=== PATIENT | male | born 1945 | race African-American/Black ===

== ENCOUNTER 2016-10-16 16:51 | Emergency (ER) | payer MEDICARE, MEDICAID ==
[~2016-10-16] VITALS: Ht 175.3 cm; Wt 92.5 kg
[~2016-10-16 16:51] MED LIST: ADVAIR 250/501 PUFFS INH; AMLODIPINE BESYL5 MG ORAL; AMOXICILLIN500 MG PO; ASPIR 8181 MG ORAL; DOXYCYCLINE HY100 M2 ORAL; EXFORGE HCT 5-1 EAC1 ORAL; FLOMAX0.4 MG PO; GLIPIZIDE5 MG ORAL; IBUPROFEN600 MG ORAL; IBUPROFEN600 MG PO; LOSARTAN POTAS100 MG PO; MEDROL DOSEPAK4 MG ORAL; METHOCARBAMOL500 MG ORAL; NICODERM 21MG/241 EA TDERMAL; NORCO 5-325 TA1 EACH ORAL; NORCO1 EA ORAL; PREDNISONE20 MG ORAL; SIMVASTATIN40 MG PO; TYLENOL #31 TAB PO; UNK BP MED PO; VALIUM5 MG PO; VENTOLIN HFA18 GM INH; VITAMIN D1000 UNI1 ORAL; ZITHROMAX250 MG ORAL
[2016-10-16 17:17] VITALS: BP 133/84
[2016-10-16] MEDS ORDERED: Ketorolac 60mg Inj IM ONE (18:00)
[2016-10-16] MEDS ORDERED: Albuterol ud Inhalation HHN ONE ×2 (18:00→20:15)
[2016-10-16] MEDS ORDERED: Acetaminophen 500mg (ES) tab ORAL ONE (18:00)
[2016-10-16 19:13] LABS: BASOPHILS % (AUTO) 1.4 % (0.0-2.0); EOSINOPHILS % (AUTO) 1.6 % (0.0-3.0); LYMPHOCYTES % (AUTO) 36.3 % (20.0-45.0); MEAN CORPUSCULAR HEMOGLOBIN 31.4 PG (27.0-31.0); MEAN CORPUSCULAR HGB CONC 32.2 G/DL (32.0-36.0); MEAN CORPUSCULAR VOLUME 97 FL (80-99); MEAN PLATELET VOLUME 7.7 FL (6.5-10.1); MONOCYTES % (AUTO) 5.9 % (1.0-10.0); NEUTROPHILS % (AUTO) 54.8 % (45.0-75.0); PLATELET COUNT 232 K/UL (150-450); RED BLOOD COUNT 5.07 M/UL (4.70-6.10); RED CELL DISTRIBUTION WIDTH 12.3 % (11.6-14.8); WHITE BLOOD COUNT 5.8 K/UL (4.8-10.8)
[2016-10-16 19:30] LABS: ALANINE AMINOTRANSFERASE 21 U/L (3-41); ALBUMIN/GLOBULIN RATIO 1.6 (1.0-2.7); ANION GAP 11 (5-15); ASPARTATE AMINO TRANSFERASE 19 U/L (5-40); CALCIUM 9.7 mg/dL (8.6-10.2); CARBON DIOXIDE 29 mEQ/L (20-30); CHLORIDE 101 mEQ/L (98-107); CREATININE 1.3 mg/dL (0.7-1.2); GLOMERULAR FILTRATION RATE > 60 mL/min (>60); HEMOLYSIS 6; POTASSIUM 4.3 mEQ/L (3.4-4.9); SODIUM 141 mEQ/L (135-145); TOTAL PROTEIN 7.5 g/dL (6.6-8.7); TROPONIN I < 0.30 ng/mL (<=0.30)
[2016-10-16 19:41] LABS: CKMB < 1.5 ng/mL (< 6.7)
[2016-10-16] MEDS ORDERED: PredniSONE 20mg tab ORAL ONE (20:15)
--- NOTE | 2016-10-16 21:20 | Emergency Room Report ---
History of Present Illness General Chief Complaint: Chest Pain Present Illness HPI 71-year-old male presents emergency department complaining of left-sided chest pain in addition to dyspnea, wheezing and difficulty breathing times one day. Patient states that he has been admitted here in the past and also discharged here from the ER and evaluated for similar symptoms however he always has to return due to recurrent symptoms. denies productive cough. he denies nausea, vomiting, fevers, chills, abdominal pain or swelling of the lower extremities. Patient denies cardiac history. he states pain even during rest. Patient denies recent travel, or recent surgeries. Denies Palpitations, LOC, AMS, dizziness, Changes in Vision, Sensation, paresthesias, or a sudden severe headache. 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, MILD CVA Hx Seizures: No Hx Dizziness: Yes - WHEN CHANGING FROM SITTING TO STANDING Hx Headaches: Yes - OCCASIONALLY, MORE AFTER FACIAL SWELLING Review of Systems All Other Systems: negative except mentioned in HPI Physical Exam Vital Signs Date Time Temp Pulse Resp B/P Pulse Ox O2 Delivery O2 Flow Rate FiO2 10/16/16 16:59 97.9 67 17 137/81 98 Room Air 10/16/16 17:15 2.0 28 Sp02 EP Interpretation: reviewed, normal General Appearance: no apparent distress, alert, GCS 15, non-toxic Head: normocephalic, atraumatic Eyes: bilateral eye PERRL, bilateral eye normal inspection ENT: hearing grossly normal, normal pharynx, no angioedema, normal voice Neck: full range of motion, supple/symm/no masses Respiratory: chest non-tender, lungs clear, normal breath sounds, no rhonchi, no respiratory distress, no retraction, no accessory muscle use, speaking full sentences, wheezing - mild expiratory wheezes bilaterally, other - Significant TTP to palpation of the chest, no obvioius deformity Cardiovascular #1: regular rate, rhythm, no edema Cardiovascular #2: 2+ radial (R), 2+ radial (L), 2+ femoral (L), 2+ dorsalis pedis (L) Gastrointestinal: non tender, soft, no guarding, no rebound Rectal: deferred Musculoskeletal: back normal, gait/station normal, normal range of motion, no calf tenderness, tender - reproducible CP upon anterior palpation of the chest. Neurologic: alert, oriented x3, responsive, motor strength/tone normal, sensory intact, speech normal Psychiatric: judgement/insight normal, memory normal, mood/affect normal, no suicidal/homicidal ideation Skin: normal color, no rash, warm/dry, well hydrated Lymphatic: no adenopathy Medical Decision Making PA Attestation Dr. Marks is my supervising Physician whom patient management has been discussed with. Diagnostic Impression: Primary Impression: Costochondritis Additional Impression: Bronchitis ER Course Pt. presents to the ED c/o left sided CP and SOB x 1 day. Ddx considered but are not limited to VT, pneumonia, contusion, costochondritis , PE, ACS, Shoulder strain, Chest wall contusion. aortic dissection. Vital signs: are WNL, pt. is afebrile H&PE are most consistent with bronchitis, and costochondritis. due to significant reproducible pain on palpation, will r/o ACS. Patient is non- tachypneic non-tachycardic not suspicious of pulmonary embolism at this time. Patient not appear to be in distress. He is oxygenating well on room air. ORDERS: - EK PBM NSR no ST Changes, Pt. not given ASA in Ed. EKG was interpreted by Dr. Marks. -CK-MB: WNL -Troponins: WNL unremarkable - CXR: unremarkable - Per Dr. Gtz ED INTERVENTIONS: -60mg Prednisone PO -60mg Toradol IM -500mg Tylenol PO for pain - Albuterol Nebulized x 2 DISCHARGE: At this time pt. is stable for d/c to home. Will provide printed patient care instructions, and any necessary prescriptions. Care plan and follow up instructions have been discussed with the patient prior to discharge. EKG Diagnostic Results Rate: normal - 70 BPM Rhythm: NSR ST Segments: no acute changes ASA given to the pt in ED: No PA Scribe Text EKG was interpreted by Dr. Marks. Last Vital Signs Date Time Temp Pulse Resp B/P Pulse Ox O2 Delivery O2 Flow Rate FiO2 10/16/16 21:00 71 18 99 Nasal Cannula 2.0 28 10/16/16 17:17 97.5 133/84 Disposition: HOME, SELF-CARE Condition: Stable Scripts Ibuprofen* (MOTRIN*) 600 Mg Tablet 600 MG ORAL THREE TIMES A DAY, #30 TAB 0 Refills Prov: Malaika Bonilla 10/16/16 Albuterol Sulfate* (ALBUTEROL SULFATE MDI*) 8.5 Gm Hfa.aer.ad 2 PUFF INH Q3H, #1 INH 0 Refills Prov: Malaika Bonilla 10/16/16 Referrals: Jaylen Lara MD (PCP) Patient Instructions: Acute Bronchitis, Costochondritis, [id number], Nonspecific Chest Pain Additional Instructions: Take medications as directed. Follow up with PCP in 3 days * talk to your PCP about your recurrent ED visits for shortness of breath, difficulty breathing, and Chest Pain * Return sooner to ED if new symptoms occur, or current symptoms become worse. Malaika Bonilla Oct 16, 2016 21:20
[2016-10-16] MEDS ORDERED: ALBUTEROL SULF8.5 GM INH (21:37)
[2016-10-16] MEDS ORDERED: IBUPROFEN600 MG ORAL (21:37)
[2016-10-16 22:20] VITALS: BP 130/79
--- NOTE | 2016-10-17 13:47 | Diagnostic Imaging Report ---
Indications: Chest pain Technique: Portable AP chest Findings: Comparison: None Cardiac silhouette remains normal in size. Pulmonary vasculature remains within normal limits. Lungs and pleura remain clear. Bilateral breast implants again noted.. IMPRESSION: No evidence of acute disease, unchanged Stable chronic changes as described
--- NOTE | 2016-10-17 20:17 | Cardiology Report ---
APPROVED REPORT EKG Measurement Heart [id number] Normal sinus rhythm Minimal voltage criteria for LVH, may be normal variant Borderline ECG
== END 2016-10-16 22:20 | disposition home or self-care (01) ==
LOC: EMR 17:40
DX: M94.0 Chondrocostal junction syndrome [Tietze] (principal); J40 Bronchitis, not specified as acute or chronic; I10 Essential (primary) hypertension; J44.9 Chronic obstructive pulmonary disease, unspecified
CPT/HCPCS: 36415; 71010; 80053; 82550; 82553; 84484; 85025; 93005; 94640; 94664; 96372; 99283

== ENCOUNTER 2016-11-20 14:11 | Emergency (ER) | payer MEDICARE, MEDICAID ==
[~2016-11-20] VITALS: Ht 172.7 cm; Wt 91.6 kg
[~2016-11-20 14:11] MED LIST changes: +ALBUTEROL SULF8.5 GM INH
[2016-11-20] MEDS ORDERED: TdaP Vaccine 0.5ml Syr IM ONE (14:30)
--- NOTE | 2016-11-20 15:04 | Emergency Room Report ---
History of Present Illness General Chief Complaint: Laceration Present Illness HPI 71-year-old male presents emergency department complaining of laceration to the left index finger since 2 PM yesterday. Patient reports some mild bleeding continues. Patient denies taking blood thinning medications. Patient reports mild pain at the site of the laceration that he rates as 6/10 in severity and described as burning sensation. Patient states he accidentally cut his finger with oral scissors yesterday. Patient states he does not know when his last tetanus vaccination was.Denies numbness tingling or loss of sensation or gross motor movements of the extremities, incontinence of bowel or bladder. Denies CP , Palpitations, LOC, AMS, dizziness, Changes in Vision, Sensation, paresthesias , or a sudden severe headache. Allergies: Coded Allergies: No Known Allergies (Unverified , 10/27/12) Patient History Past Medical History: see triage record Past Surgical History: none Pertinent Family History: none Reviewed Nursing Documentation: PMH: Agreed, PSxH: Agreed Nursing Documentation-PMH Hx Cardiac Problems: Yes Hx Hypertension: Yes Hx Pacemaker: No Hx Asthma: No Hx COPD: Yes Hx Diabetes: Yes - BORDERLINE Hx Cancer: No Hx Gastrointestinal Problems: Yes Hx Dialysis: No Hx Neurological Problems: Yes Hx Cerebrovascular Accident: Yes - 20 YEARS AGO, MILD CVA Hx Seizures: No Hx Dizziness: Yes - WHEN CHANGING FROM SITTING TO STANDING Hx Headaches: Yes - OCCASIONALLY, MORE AFTER FACIAL SWELLING Review of Systems All Other Systems: negative except mentioned in HPI Physical Exam Vital Signs Date Time Temp Pulse Resp B/P Pulse Ox O2 Delivery O2 Flow Rate FiO2 11/20/16 14:16 97.7 78 20 121/70 98 Room Air Sp02 EP Interpretation: reviewed, normal General Appearance: no apparent distress, alert, GCS 15, non-toxic Head: normocephalic, atraumatic Eyes: bilateral eye PERRL, bilateral eye normal inspection ENT: hearing grossly normal, normal pharynx, no angioedema, normal voice Neck: full range of motion, supple/symm/no masses Respiratory: chest non-tender, lungs clear, normal breath sounds, speaking full sentences Cardiovascular #1: regular rate, rhythm, no edema Rectal: deferred Musculoskeletal: back normal, gait/station normal, normal range of motion, non- tender, no calf tenderness Neurologic: alert, oriented x3, responsive, motor strength/tone normal, sensory intact, speech normal Psychiatric: judgement/insight normal, memory normal, mood/affect normal, no suicidal/homicidal ideation Skin: normal color, no rash, warm/dry, well hydrated, other - 1cm superficial laceration to the lateral left 5th digit. no bleeding at this time. pt. has FROM of the extremity. , laceration Lymphatic: no adenopathy Medical Decision Making PA Attestation Dr. Lund is my supervising Physician whom patient management has been discussed with. Diagnostic Impression: Primary Impression: Laceration of finger with delay in treatment Qualified Codes: S61.219A - Laceration without foreign body of unspecified finger without damage to nail, initial encounter ER Course 71-year-old male presents emergency department complaining of laceration from floral scissors to the left index finger since 2 PM yesterday. Patient reports some mild bleeding continues. Patient denies taking blood thinning medications. Ddx considered but are not limited to laceration, tendon injury, cellulitis, amputation Vital signs: are WNL, pt. is afebrile H&PE are most consistent with: left 5th digit laceration approx 1 cm in length, with delayed evaluation. ORDERS: none required at this time, the diagnosis is clinical ED INTERVENTIONS: -Tetanus vaccine was administered as pt. vaccination status was unknown. - The wound was copiously irrigated with normal saline, and explored for foreign body for which no FB was found. - The wound was approximated and closed using steri-strip - Finger Splint applied to the left 5th digit by ED RN. Pt. remains neurovascularly intact. Discussed with patient: That we make every effort to approximate the laceration as best as we can so that scarring will be as cosmetically pleasing as possible with our limited cosmetic skill set in the Emergency dept. Regardless of our best efforts there will be scarring after laceration repair. The extent of scarring is unknown at this time. DISCHARGE: At this time pt. is stable for d/c to home. Will provide printed patient care instructions, and any necessary prescriptions. Care plan and follow up instructions have been discussed with the patient prior to discharge. Last Vital Signs Date Time Temp Pulse Resp B/P Pulse Ox O2 Delivery O2 Flow Rate FiO2 11/20/16 14:16 97.7 78 20 121/70 98 Room Air Disposition: HOME, SELF-CARE Condition: Stable Scripts Bacitracin Zinc/Polymyx B Sulf (HM DOUBLE ANTIBIOTIC OINTMENT) 28.4 Gm Oint...g. 1 APPLIC TP BID, #28.4 GM Prov: Malaika Bonilla 11/20/16 Acetaminophen* (TYLENOL EXTRA STRENGTH*) 500 Mg Tablet 500 MG ORAL Q6H, #30 TAB 0 Refills Prov: Malaika Bonilla 11/20/16 Cephalexin* (KEFLEX*) 500 Mg Capsule 500 MG ORAL EVERY 12 HOURS for 7 Days, #14 CAP 0 Refills Prov: Malaika Bonilla 11/20/16 Patient Instructions: Nonsutured Laceration Care Additional Instructions: Take medications as directed. Follow up with PCP in 3-5 days Return sooner to ED if new symptoms occur, or current symptoms become worse. - Please note that this Emergency Department Report was dictated using [employer] bottom assembler technology software, occasionally this can lead to erroneous entry secondary to interpretation by the dictation equipment. Malaika Bonilla Nov 20, 2016 15:04
[2016-11-20] MEDS ORDERED: CEPHALEXIN500 MG ORAL (15:25)
[2016-11-20] MEDS ORDERED: TYLENOL EXTRA500 MG ORAL (15:25)
[2016-11-20 15:30] VITALS: BP 120/60
[2016-11-20] MEDS ORDERED: HM DOUBLE ANT28.4 G1 TP (15:47)
[2016-11-20 16:00] VITALS: BP 120/60
== END 2016-11-20 16:00 | disposition home or self-care (01) ==
LOC: EMR 14:50
DX: S61.211A Laceration without foreign body of left index finger without damage to nail, initial encounter (principal); W27.2XXA Contact with scissors, initial encounter; Y92.9 Unspecified place or not applicable; Z23 Encounter for immunization; I10 Essential (primary) hypertension; J44.9 Chronic obstructive pulmonary disease, unspecified; E11.9 Type 2 diabetes mellitus without complications; Z86.73 Personal history of transient ischemic attack (TIA), and cerebral infarction without residual deficits
CPT/HCPCS: 29130; 90471; 90715

== ENCOUNTER 2017-12-18 16:10 | Inpatient (IN) | payer MEDICARE, MEDICAID ==
[~2017-12-18] VITALS: Ht 172.7 cm; Wt 94.8 kg
[~2017-12-18 16:10] MED LIST changes: +CEPHALEXIN500 MG ORAL; +HM DOUBLE ANT28.4 G1 TP; +TYLENOL EXTRA500 MG ORAL
[2017-12-18 16:24] VITALS: BP 140/82
--- NOTE | 2017-12-18 16:43 | Emergency Room Report ---
History of Present Illness General Chief Complaint: Chest Pain Source: Patient Present Illness HPI 72-year-old male with pmhx of HTN, p/w chest pain for 2 days. Patient states that yesterday he got up in the morning, felt very dizzy, then also started to have chest pain. Localized to substernal area, no radiation to back or other areas, sharp in nature, gradual in onset, multiple episodes. Denies SOB. Denies palpitations, diaphoresis, n/v. Patient states that he has had this chest pain in the past, multiple times Patient states that the dizziness has improved since yesterday, however does state that the room is spinning. Denies any leg or arm weakness or numbness. Denies fever, chills, cough, abd pain. Denies trauma. Unknown when his last stress test was. Denies any history of smoking Allergies: Coded Allergies: No Known Allergies (Unverified , 10/27/12) Patient History Past Medical History: see triage record Past Surgical History: none Pertinent Family History: none Reviewed Nursing Documentation: PMH: Agreed, PSxH: Agreed Nursing Documentation-PMH Past Medical History: No History, Except For Hx Cardiac Problems: Yes Hx Hypertension: Yes Hx Pacemaker: No Hx Asthma: No Hx COPD: Yes Hx Diabetes: Yes - BORDERLINE Hx Cancer: No Hx Gastrointestinal Problems: Yes Hx Dialysis: No Hx Neurological Problems: Yes Hx Cerebrovascular Accident: Yes - 20 YEARS AGO, MILD CVA Hx Seizures: No Hx Dizziness: Yes - WHEN CHANGING FROM SITTING TO STANDING Hx Headaches: Yes - OCCASIONALLY, MORE AFTER FACIAL SWELLING Review of Systems All Other Systems: negative except mentioned in HPI Physical Exam Vital Signs Date Time Temp Pulse Resp B/P (MAP) Pulse Ox O2 Delivery O2 Flow Rate FiO2 12/18/17 16:14 98.0 61 20 140/82 100 Room Air 98.1 Sp02 EP Interpretation: reviewed, normal General Appearance: alert, GCS 15, non-toxic, mild distress Head: normocephalic, atraumatic Eyes: bilateral eye normal inspection, bilateral eye PERRL, bilateral eye EOMI ENT: normal ENT inspection, normal pharynx, normal voice, moist mucus membranes Neck: normal inspection, full range of motion, supple Respiratory: normal inspection, lungs clear, normal breath sounds, no respiratory distress, no retraction, no wheezing, speaking full sentences, chest symmetrical Cardiovascular #1: normal inspection, regular rate, rhythm, no edema, normal capillary refill Cardiovascular #2: 2+ radial (R), 2+ radial (L) Gastrointestinal: normal inspection, non tender, soft, non-distended, no guarding Genitourinary: no CVA tenderness Musculoskeletal: normal inspection, back normal, normal range of motion, non- tender Neurologic: alert, oriented x3, responsive, radiator fitter III-XII nml as tested, motor strength/tone normal, sensory intact, speech normal, other - R sided nystagmus. finger to nose wnl Psychiatric: normal inspection, judgement/insight normal, memory normal Skin: normal inspection, normal color, no rash, warm/dry, well hydrated, normal turgor Medical Decision Making Diagnostic Impression: Primary Impression: Chest pain Additional Impression: Dizziness ER Course 72-year-old male with chest pain and dizziness DDX: ACS vs. CHF vs. pneumonia vs. gastritis/GERD vs. pneumothorax Dizziness: Dehydration, metabolic, vertigo, CVA Plan: IV access, obtain labs including troponin, EKG, CXR CT head ER course: Patient has remained on a monitor, HD stable still c/o CP, and dizziness Disposition: Patient requires admission for chest pain to tele D/W hospitalist Dr Lara Please note that this Emergency Department Report was dictated using [employer] motor and generator assembler technology software, occasionally this can lead to erroneous entry secondary to interpretation by the dictation equipment. EKG Diagnostic Results EP Interpretation: Yes Rate: Bradycardic Rhythm: Sinus bradycardia ST Segments: No acute changes ASA given to patient: Yes Rhythm Strip EP Interpretation: Yes Rate:55 Rhythm: NSR, no PVCs, no ectopy Chest X-ray* CXR: Ordered: Yes 1 view Indication: Chest pain EP interpretation: Yes Interpretation: No consolidation, no effusion, no PTX, no acute cardiopulmonary disease Impression: No acute disease Electronically signed by Cady Marin MD Laboratory Tests Test 12/18/17 16:55 White Blood Count 5.7 K/UL (4.8-10.8) Red Blood Count 4.77 M/UL (4.70-6.10) Hemoglobin 15.1 G/DL (14.2-18.0) Hematocrit 44.9 % (42.0-52.0) Mean Corpuscular Volume 94 FL (80-99) Mean Corpuscular Hemoglobin 31.7 PG (27.0-31.0) H Mean Corpuscular Hemoglobin Concent 33.7 G/DL (32.0-36.0) Red Cell Distribution Width 11.6 % (11.6-14.8) Platelet Count 204 K/UL (150-450) Mean Platelet Volume 8.6 FL (6.5-10.1) Neutrophils (%) (Auto) 56.3 % (45.0-75.0) Lymphocytes (%) (Auto) 33.5 % (20.0-45.0) Monocytes (%) (Auto) 6.9 % (1.0-10.0) Eosinophils (%) (Auto) 1.2 % (0.0-3.0) Basophils (%) (Auto) 2.0 % (0.0-2.0) Urine Color Pale yellow Urine Appearance Clear Urine pH 6 (4.5-8.0) Urine Specific Edson 1.015 (1.005-1.035) Urine Protein Negative (NEGATIVE) Urine Glucose (UA) Negative (NEGATIVE) Urine Ketones Negative (NEGATIVE) Urine Occult Blood Negative (NEGATIVE) Urine Nitrite Negative (NEGATIVE) Urine Bilirubin Negative (NEGATIVE) Urine Urobilinogen Normal MG/DL (0.0-1.0) Urine Leukocyte Esterase 1+ (NEGATIVE) H Urine RBC Pending Urine WBC Pending Urine Squamous Epithelial Cells Pending Urine Bacteria Pending Sodium Level Pending Potassium Level Pending Chloride Level Pending Carbon Dioxide Level Pending Blood Urea Nitrogen Pending Creatinine Pending Estimate Glomerular Filtration Rate Pending Glucose Level Pending Calcium Level Pending Total Bilirubin Pending Aspartate Amino Transferase (AST) Pending Alanine Aminotransferase (ALT) Pending Alkaline Phosphatase Pending Troponin I Pending Pro-B-Type Natriuretic Peptide Pending Total Protein Pending Albumin Pending Globulin Pending CT/MRI/US Diagnostic Results CT/MRI/US Diagnostic Results : Imaging Test Ordered: ct head Impression CT HEAD: No acute intracranial process. Involutional changes. Last Vital Signs Date Time Temp Pulse Resp B/P (MAP) Pulse Ox O2 Delivery O2 Flow Rate FiO2 12/18/17 16:14 98.0 61 20 140/82 100 Room Air 98.1 Disposition: ADMITTED INPATIENT Condition: Serious Cady Marin M.D. Dec 18, 2017 16:43
[2017-12-18 17:41] LABS: APPEARANCE,URINE CLEAR; BILIRUBIN, URINE NEGATIVE (NEGATIVE); COLOR,URINE PALE YELLOW; GLUCOSE, URINE (UA) NEGATIVE (NEGATIVE); KETONES,URINE NEGATIVE (NEGATIVE); LEUKOCYTE ESTERASE ,URINE 1+ (NEGATIVE); NITRITE,URINE NEGATIVE (NEGATIVE); PH,URINE 6 (4.5-8.0); PROTEIN,URINE NEGATIVE (NEGATIVE); UROBILINOGEN,URINE NORMAL MG/DL (0.0-1.0)
[2017-12-18 17:42] LABS: EOSINOPHILS % (AUTO) 1.2 % (0.0-3.0); HEMATOCRIT 44.9 % (42.0-52.0); HEMOGLOBIN 15.1 G/DL (14.2-18.0); LYMPHOCYTES % (AUTO) 33.5 % (20.0-45.0); MEAN CORPUSCULAR VOLUME 94 FL (80-99); MONOCYTES % (AUTO) 6.9 % (1.0-10.0); NEUTROPHILS % (AUTO) 56.3 % (45.0-75.0); PLATELET COUNT 204 K/UL (150-450); RED BLOOD COUNT 4.77 M/UL (4.70-6.10); RED CELL DISTRIBUTION WIDTH 11.6 % (11.6-14.8); WHITE BLOOD COUNT 5.7 K/UL (4.8-10.8)
[2017-12-18 17:57] LABS: ANION GAP 6 mmol/L (5-15); BLOOD UREA NITROGEN 16 mg/dL (7-18); CARBON DIOXIDE 28 MMOL/L (21-32); CHLORIDE 106 MMOL/L (98-107); CREATININE 1.3 MG/DL (0.55-1.30); SODIUM 140 MMOL/L (136-145)
[2017-12-18 18:08] LABS: ALANINE AMINOTRANSFERASE 30 U/L (12-78); ALBUMIN 4.2 G/DL (3.4-5.0); ALBUMIN/GLOBULIN RATIO 1.2 (1.0-2.7); ALKALINE PHOSPHATASE 68 U/L (46-116); ASPARTATE AMINO TRANSFERASE 21 U/L (15-37); BILIRUBIN,TOTAL 0.3 MG/DL (0.2-1.0)
[2017-12-18 19:07] VITALS: BP 152/90
[2017-12-18 20:30] VITALS: BP 137/95
[2017-12-18] MEDS ORDERED: Acetaminophen 500mg (ES) tab ORAL SCH (22:15)
[2017-12-18] MEDS: Heparin 5000 units/ml inj SUBQ SCH (22:52)
[2017-12-18] MEDS: Ketorolac 30mg Inj IV PRN (23:19)
[2017-12-19] VITALS (7 sets, daily range): BP systolic 117–143; BP diastolic 65–88
[2017-12-19 06:40] LABS: HEMATOCRIT 41.8 % (42.0-52.0); HEMOGLOBIN 14.6 G/DL (14.2-18.0); LYMPHOCYTES % (AUTO) 41.4 % (20.0-45.0); MEAN CORPUSCULAR VOLUME 94 FL (80-99); MONOCYTES % (AUTO) 9.5 % (1.0-10.0); PLATELET COUNT 188 K/UL (150-450); RED BLOOD COUNT 4.45 M/UL (4.70-6.10); RED CELL DISTRIBUTION WIDTH 11.9 % (11.6-14.8); WHITE BLOOD COUNT 4.7 K/UL (4.8-10.8)
[2017-12-19 07:02] LABS: ALANINE AMINOTRANSFERASE 31 U/L (12-78); ALBUMIN 3.6 G/DL (3.4-5.0); ALBUMIN/GLOBULIN RATIO 1.1 (1.0-2.7); ALKALINE PHOSPHATASE 63 U/L (46-116); ANION GAP 7 mmol/L (5-15); ASPARTATE AMINO TRANSFERASE 17 U/L (15-37); BILIRUBIN,TOTAL 0.3 MG/DL (0.2-1.0); BLOOD UREA NITROGEN 16 mg/dL (7-18); CALCIUM 8.8 MG/DL (8.5-10.1); CARBON DIOXIDE 27 MMOL/L (21-32); CHLORIDE 107 MMOL/L (98-107); CREATININE 1.3 MG/DL (0.55-1.30); PHOSPHORUS 3.9 MG/DL (2.5-4.9); POTASSIUM 4.1 MMOL/L (3.5-5.1); SODIUM 141 MMOL/L (136-145)
--- NOTE | 2017-12-19 08:30 | Diagnostic Imaging Report ---
Indications: Vertigo Technique: Spiral acquisitions obtained through the brain. Angled axial and coronal 5 x 5 mm slices were reconstructed. Total dose length product 1337.38 mGycm. CTDI vol(s) 70.38 mGy. Dose reduction achieved using automated exposure control Comparison: 07/11/2016 Findings: There is mild age-related prominence of the ventricles and extra-axial CSF spaces. Normal humphrey-white differentiation. No acute hemorrhage or edema. No mass effect or midline shift. Intact calvarium. Visualized orbits and sinuses are unremarkable. Impression: Mild age-related volume loss No acute intracranial bleed or mass effect This agrees with the preliminary interpretation provided overnight by [facility] teleradiology service. The CT scanner at [facility] is accredited by the [place] [employer] and the scans are performed using protocols designed to limit radiation exposure to as low as reasonably achievable to attain images of sufficient resolution adequate for diagnostic evaluation.
[2017-12-19] MEDS: Aspirin EC 81mg tab ORAL SCH (09:11)
[2017-12-19] MEDS: Heparin 5000 units/ml inj SUBQ SCH ×2 (09:11→21:00)
--- NOTE | 2017-12-19 10:38 | Diagnostic Imaging Report ---
Indication: Chest pain Technique: One view of the chest Comparison: 10/16/2016 Findings: No acute infiltrates, effusions, or congestion. Tortuous calcified aorta. Normal heart size. Upper mediastinum unremarkable. No significant interim change Impression: No acute process.
--- NOTE | 2017-12-19 12:52 | Consultation ---
History of Present Illness General Date patient seen: Dec 19, 2017 Chief Complaint: Chest Pain Present Illness HPI 72-year-old male with pmhx of HTN, COPD, presented to ER with CC of chest pain for 2 days. He is feeling very dizzy at times. The chest pain is sharp in nature, gradual in onset, multiple episodes. Patient states that the dizziness has improved since yesterday, however does state that the room is spinning. Denies any leg or arm weakness or numbness. His EKG and troponin were negative. He is admitted to [facility] for ACS and intractable dizziness. Allergies: Coded Allergies: No Known Allergies (Unverified , 10/27/12) Medication History Scheduled Acetaminophen* (Tylenol Extra Strength*), 500 MG ORAL Q6H Albuterol Sulfate (Ventolin Hfa), 1 PUFF INH EVERY 6 HOURS, (Reported) Amlodipine Besylate* (Amlodipine Besylate*), 5 MG ORAL DAILY, (Reported) Aspirin* (Aspir 81*), 81 MG ORAL DAILY, (Reported) Bacitracin Zinc/Polymyx B Sulf (Hm Double Antibiotic Ointment), 1 APPLIC TP BID Cephalexin* (Keflex*), 500 MG ORAL EVERY 12 HOURS Cholecalciferol (Vitamin D3)* (Vitamin D*), 2,000 UNITS ORAL DAILY, (Reported) Simvastatin (Zocor), 40 MG PO QHS, (Reported) Tamsulosin HCl (Flomax), 0.4 MG PO QHS, (Reported) Patient History Healthcare decision maker Resuscitation status Full Code Advanced Directive on File No Past Medical/Surgical History Past Medical/Surgical History: (1) COPD (chronic obstructive pulmonary disease) (2) Low back pain (3) HTN (hypertension) Review of Systems All Other Systems: negative except mentioned in HPI Physical Exam General Appearance: WD/WN Lines, tubes and drains: peripheral HEENT: normocephalic, atraumatic Neck: non-tender, normal alignment Respiratory/Chest: chest wall non-tender, normal breath sounds Cardiovascular/Chest: normal peripheral pulses, normal rate Abdomen: normal bowel sounds, non tender Genitourinary/Rectal: normal genital exam Extremities: normal range of motion Last 24 Hour Vital Signs Date Time Temp Pulse Resp B/P (MAP) Pulse Ox O2 Delivery O2 Flow Rate FiO2 12/19/17 09:11 60 124/84 12/19/17 06:41 57 3/16/18 04:00 98.2 54 20 119/77 99 Room Air 98.2 12/19/17 00:00 96.6 57 19 129/75 97 Room Air 96.6 12/18/17 23:54 61 12/18/17 21:00 97.9 68 17 137/95 98 Room Air 97.9 12/18/17 20:30 68 17 137/95 98 Room Air 12/18/17 19:07 97.9 70 21 152/90 98 Room Air 97.9 12/18/17 16:24 65 16 Room Air 12/18/17 16:24 98.1 65 16 140/82 100 Room Air 98.1 12/18/17 16:14 98.0 61 20 140/82 100 Room Air 98.1 Intake and Output 12/18/17 12/19/17 19:00 07:00 Output Total 400 ml Balance -400 ml Output Urine Total 400 ml # Voids 1 Laboratory Tests Test 12/18/17 16:55 12/19/17 06:05 White Blood Count 5.7 K/UL (4.8-10.8) 4.7 K/UL (4.8-10.8) L Red Blood Count 4.77 M/UL (4.70-6.10) 4.45 M/UL (4.70-6.10) L Hemoglobin 15.1 G/DL (14.2-18.0) 14.6 G/DL (14.2-18.0) Hematocrit 44.9 % (42.0-52.0) 41.8 % (42.0-52.0) L Mean Corpuscular Volume 94 FL (80-99) 94 FL (80-99) Mean Corpuscular Hemoglobin 31.7 PG (27.0-31.0) H 32.9 PG (27.0-31.0) H Mean Corpuscular Hemoglobin Concent 33.7 G/DL (32.0-36.0) 35.0 G/DL (32.0-36.0) Red Cell Distribution Width 11.6 % (11.6-14.8) 11.9 % (11.6-14.8) Platelet Count 204 K/UL (150-450) 188 K/UL (150-450) Mean Platelet Volume 8.6 FL (6.5-10.1) 9.1 FL (6.5-10.1) Neutrophils (%) (Auto) 56.3 % (45.0-75.0) 46.0 % (45.0-75.0) Lymphocytes (%) (Auto) 33.5 % (20.0-45.0) 41.4 % (20.0-45.0) Monocytes (%) (Auto) 6.9 % (1.0-10.0) 9.5 % (1.0-10.0) Eosinophils (%) (Auto) 1.2 % (0.0-3.0) 2.0 % (0.0-3.0) Basophils (%) (Auto) 2.0 % (0.0-2.0) 1.0 % (0.0-2.0) Urine Color Pale yellow Urine Appearance Clear Urine pH 6 (4.5-8.0) Urine Specific [place] 1.015 (1.005-1.035) Urine Protein Negative (NEGATIVE) Urine Glucose (UA) Negative (NEGATIVE) Urine Ketones Negative (NEGATIVE) Urine Occult Blood Negative (NEGATIVE) Urine Nitrite Negative (NEGATIVE) Urine Bilirubin Negative (NEGATIVE) Urine Urobilinogen Normal MG/DL (0.0-1.0) Urine Leukocyte Esterase 1+ (NEGATIVE) H Urine RBC 0-2 /HPF (0 - 0) H Urine WBC 0-2 /HPF (0 - 0) Urine Squamous Epithelial Cells None /LPF (NONE/OCC) Urine Bacteria None /HPF (NONE) Sodium Level 140 MMOL/L (136-145) 141 MMOL/L (136-145) Potassium Level 4.0 MMOL/L (3.5-5.1) 4.1 MMOL/L (3.5-5.1) Chloride Level 106 MMOL/L (98-107) 107 MMOL/L (98-107) Carbon Dioxide Level 28 MMOL/L (21-32) 27 MMOL/L (21-32) Anion Gap 6 mmol/L (5-15) 7 mmol/L (5-15) Blood Urea Nitrogen 16 mg/dL (7-18) 16 mg/dL (7-18) Creatinine 1.3 MG/DL (0.55-1.30) 1.3 MG/DL (0.55-1.30) Estimat Glomerular Filtration Rate > 60 mL/min (>60) > 60 mL/min (>60) Glucose Level 88 MG/DL (74-106) 131 MG/DL (74-106) H Calcium Level 9.0 MG/DL (8.5-10.1) 8.8 MG/DL (8.5-10.1) Total Bilirubin 0.3 MG/DL (0.2-1.0) 0.3 MG/DL (0.2-1.0) Aspartate Amino Transf (AST/SGOT) 21 U/L (15-37) 17 U/L (15-37) Alanine Aminotransferase (ALT/SGPT) 30 U/L (12-78) 31 U/L (12-78) Alkaline Phosphatase 68 U/L (46-116) 63 U/L (46-116) Troponin I 0.000 ng/mL (0.000-0.056) 0.000 ng/mL (0.000-0.056) Pro-B-Type Natriuretic Peptide 85 pg/mL (0-125) Total Protein 7.8 G/DL (6.4-8.2) 6.9 G/DL (6.4-8.2) Albumin 4.2 G/DL (3.4-5.0) 3.6 G/DL (3.4-5.0) Globulin 3.6 g/dL 3.3 g/dL Albumin/Globulin Ratio 1.2 (1.0-2.7) 1.1 (1.0-2.7) Phosphorus Level 3.9 MG/DL (2.5-4.9) Magnesium Level 1.7 MG/DL (1.8-2.4) L Height (Feet): 5 Height (Inches): 8.00 Weight (Pounds): 209 Medications Current Medications Medications (Trade) Dose Ordered Sig/Felipe Route PRN Reason Start Time Stop Time Status Last Admin Dose Admin Acetaminophen (Tylenol) 650 mg Q6H PRN ORAL Mild Pain/Temp > 100.5 12/18/17 21:00 01/17/18 20:59 Amlodipine Besylate (Norvasc) 5 mg DAILY ORAL 12/19/17 09:00 01/18/18 08:59 12/19/17 09:11 Aspirin (Ecotrin) 81 mg DAILY ORAL 12/19/17 09:00 01/18/18 08:59 12/19/17 09:11 Atorvastatin Calcium (Lipitor) 20 mg BEDTIME ORAL 12/19/17 21:00 01/18/18 20:59 Heparin Sodium (Porcine) (Heparin 5000 units/ml) 5,000 units EVERY 12 HOURS SUBQ 12/18/17 22:00 01/17/18 21:59 12/19/17 09:11 Ketorolac Tromethamine (Toradol 30mg) 15 mg Q6H PRN IV Severe Pain (7-10) 12/18/17 22:15 12/23/17 22:14 12/18/17 23:19 Magnesium Oxide (Mag-Ox 400mg) 400 mg BID ORAL 12/19/17 12:45 01/18/18 12:44 Tamsulosin HCl (Flomax) 0.4 mg QHS ORAL 12/19/17 21:00 01/18/18 20:59 Temazepam (Restoril) 15 mg HSPRN PRN ORAL Insomnia 12/18/17 22:15 12/25/17 22:14 Assessment/Plan Problem List: (1) ACS (acute coronary syndrome) ICD Codes: I24.9 - Acute ischemic heart disease, unspecified SNOMED: 554646564 (2) Dizziness (3) COPD (chronic obstructive pulmonary disease) ICD Codes: J44.9 - Chronic obstructive pulmonary disease, unspecified SNOMED: 52546946 (4) HTN (hypertension) ICD Codes: I10 - Essential (primary) hypertension SNOMED: 22204642 Assessment/Plan serial ekg, troponin echo neuro and cardio evaluation CT of head reviewed symptomatic treatment dvt prophylaxis. Susy Morse MD Dec 19, 2017 12:52
[2017-12-19] MEDS: Magnesium Oxide 400mg tab ORAL SCH ×2 (13:31→17:55)
[2017-12-19] MEDS: Ketorolac 30mg Inj IV PRN (13:33)
--- NOTE | 2017-12-19 15:27 | History & Physical ---
History and Physical History & Physicial Jaylen Lara MD Dec 19, 2017 15:27
--- NOTE | 2017-12-19 16:22 | Cardiology Progress Note ---
Assessment/Plan Assessment/Plan 1. Chest pain likely chest wall spasm. 2. Gtsx-qu-[id number] left anterior descending coronary artery disease in 2014 CT coronary angiography. 3. History of chronic obstructive pulmonary disease. 4. Muscle spasm in the chest wall. 5. Lumbar right radiculitis. 6. Left-sided body paresthesias ekg neg trop neg will have echo unless new ekg abn or echo abn will problaby not purusuit further ischemia evlauation at this time here [id number] Objective Last 24 Hour Vital Signs Date Time Temp Pulse Resp B/P (MAP) Pulse Ox O2 Delivery O2 Flow Rate FiO2 12/19/17 09:11 60 124/84 12/19/17 08:00 97.6 60 18 124/84 97 Room Air 97.6 12/19/17 06:41 57 12/19/17 04:00 98.2 54 20 119/77 99 Room Air 98.2 12/19/17 00:00 96.6 57 19 129/75 97 Room Air 96.6 12/18/17 23:54 61 12/18/17 21:00 97.9 68 17 137/95 98 Room Air 97.9 12/18/17 20:30 68 17 137/95 98 Room Air 12/18/17 19:07 97.9 70 21 152/90 98 Room Air 97.9 12/18/17 16:24 65 16 Room Air 12/18/17 16:24 98.1 65 16 140/82 100 Room Air 98.1 Intake and Output 12/18/17 12/19/17 19:00 07:00 Output Total 400 ml Balance -400 ml Output Urine Total 400 ml # Voids 1 Laboratory Tests Test 12/18/17 16:55 12/19/17 06:05 White Blood Count 5.7 K/UL (4.8-10.8) 4.7 K/UL (4.8-10.8) L Red Blood Count 4.77 M/UL (4.70-6.10) 4.45 M/UL (4.70-6.10) L Hemoglobin 15.1 G/DL (14.2-18.0) 14.6 G/DL (14.2-18.0) Hematocrit 44.9 % (42.0-52.0) 41.8 % (42.0-52.0) L Mean Corpuscular Volume 94 FL (80-99) 94 FL (80-99) Mean Corpuscular Hemoglobin 31.7 PG (27.0-31.0) H 32.9 PG (27.0-31.0) H Mean Corpuscular Hemoglobin Concent 33.7 G/DL (32.0-36.0) 35.0 G/DL (32.0-36.0) Red Cell Distribution Width 11.6 % (11.6-14.8) 11.9 % (11.6-14.8) Platelet Count 204 K/UL (150-450) 188 K/UL (150-450) Mean Platelet Volume 8.6 FL (6.5-10.1) 9.1 FL (6.5-10.1) Neutrophils (%) (Auto) 56.3 % (45.0-75.0) 46.0 % (45.0-75.0) Lymphocytes (%) (Auto) 33.5 % (20.0-45.0) 41.4 % (20.0-45.0) Monocytes (%) (Auto) 6.9 % (1.0-10.0) 9.5 % (1.0-10.0) Eosinophils (%) (Auto) 1.2 % (0.0-3.0) 2.0 % (0.0-3.0) Basophils (%) (Auto) 2.0 % (0.0-2.0) 1.0 % (0.0-2.0) Urine Color Pale yellow Urine Appearance Clear Urine pH 6 (4.5-8.0) Urine Specific [place] 1.015 (1.005-1.035) Urine Protein Negative (NEGATIVE) Urine Glucose (UA) Negative (NEGATIVE) Urine Ketones Negative (NEGATIVE) Urine Occult Blood Negative (NEGATIVE) Urine Nitrite Negative (NEGATIVE) Urine Bilirubin Negative (NEGATIVE) Urine Urobilinogen Normal MG/DL (0.0-1.0) Urine Leukocyte Esterase 1+ (NEGATIVE) H Urine RBC 0-2 /HPF (0 - 0) H Urine WBC 0-2 /HPF (0 - 0) Urine Squamous Epithelial Cells None /LPF (NONE/OCC) Urine Bacteria None /HPF (NONE) Sodium Level 140 MMOL/L (136-145) 141 MMOL/L (136-145) Potassium Level 4.0 MMOL/L (3.5-5.1) 4.1 MMOL/L (3.5-5.1) Chloride Level 106 MMOL/L (98-107) 107 MMOL/L (98-107) Carbon Dioxide Level 28 MMOL/L (21-32) 27 MMOL/L (21-32) Anion Gap 6 mmol/L (5-15) 7 mmol/L (5-15) Blood Urea Nitrogen 16 mg/dL (7-18) 16 mg/dL (7-18) Creatinine 1.3 MG/DL (0.55-1.30) 1.3 MG/DL (0.55-1.30) Estimat Glomerular Filtration Rate > 60 mL/min (>60) > 60 mL/min (>60) Glucose Level 88 MG/DL (74-106) 131 MG/DL (74-106) H Calcium Level 9.0 MG/DL (8.5-10.1) 8.8 MG/DL (8.5-10.1) Total Bilirubin 0.3 MG/DL (0.2-1.0) 0.3 MG/DL (0.2-1.0) Aspartate Amino Transf (AST/SGOT) 21 U/L (15-37) 17 U/L (15-37) Alanine Aminotransferase (ALT/SGPT) 30 U/L (12-78) 31 U/L (12-78) Alkaline Phosphatase 68 U/L (46-116) 63 U/L (46-116) Troponin I 0.000 ng/mL (0.000-0.056) 0.000 ng/mL (0.000-0.056) Pro-B-Type Natriuretic Peptide 85 pg/mL (0-125) Total Protein 7.8 G/DL (6.4-8.2) 6.9 G/DL (6.4-8.2) Albumin 4.2 G/DL (3.4-5.0) 3.6 G/DL (3.4-5.0) Globulin 3.6 g/dL 3.3 g/dL Albumin/Globulin Ratio 1.2 (1.0-2.7) 1.1 (1.0-2.7) Phosphorus Level 3.9 MG/DL (2.5-4.9) Magnesium Level 1.7 MG/DL (1.8-2.4) CRUZITO MIRAMONTES Dec 19, 2017 16:22
[2017-12-19] MEDS: Tamsulosin 0.4mg cap ORAL SCH (21:00)
[2017-12-19] MEDS: Atorvastatin 20mg tab ORAL SCH (21:00)
--- NOTE | 2017-12-19 21:30 | History and Physical Report ---
DATE OF ADMISSION: 12/18/2017 CHIEF COMPLAINT: Chest pain, weakness, dizziness, and headache. HISTORY OF PRESENT ILLNESS: This is a 72-year-old gentleman with past medical history significant for renal cell carcinoma, status post nephrectomy, history of hypertension, COPD, dyslipidemia, BPH, hepatitis C positive, and cataract, who was presented to the office. After he was seen in my office, he complained about chest pain. Shortly after initial evaluation, the patient was admitted to the hospital with atypical chest pain. Denies any shortness of breath, however, complained about pleuritic chest pain. No palpitations. No diaphoresis. No nausea or vomiting, however, he has poor appetite. Shortly after initial evaluation in the emergency, the patient was admitted to the hospital with atypical chest pain as well as pleuritic chest pain. PAST MEDICAL HISTORY/PAST SURGICAL HISTORY: As above. History of hypertension, dyslipidemia, COPD, chronic smoker, presently quit smoking, has prior history of pleuritic chest pain. Extensive workup including stress test, echocardiogram as well as CT was done by Dr. Farhan Dejesus in the past in [facility] as well as [facility] multiple times and with unknown results. The patient has history of appendectomy, renal cell carcinoma, status post nephrectomy, hepatitis C positive, cataract, and BPH. HOME MEDICATIONS: Significant for acetaminophen, albuterol, Norvasc, aspirin, vitamin D, simvastatin, and Flomax. ALLERGIES: No known drug allergies. SOCIAL HISTORY: The patient quit smoking. No substance abuse. Occasional drinks wine. FAMILY HISTORY: Noncontributory. REVIEW OF SYSTEMS: Mostly as above. Denies any dysuria, frequency, hematuria, or hematochezia. Complained about dizziness. Denies any hemoptysis or hematochezia. Denies any suicidal or homicidal ideation. Denies any loss of consciousness. Complained about weakness, generalized body aches, and chest discomfort. Denies any bowel or urinary incontinence. Denies any seizure activity. PHYSICAL EXAMINATION: GENERAL: The patient is awake, responsive, in no acute distress. VITAL SIGNS: On admission significant for temperature 98.0 degrees, pulse of 61, respirations 20, and blood pressure 140/82. HEAD AND NECK: Pupils are equal and reactive to light. Extraocular movements are intact. Neck was supple. No JVD. NECK: Supple. No JVD. LUNGS: Good air entry. No wheezing or rales. HEART: S1 and S2. Regular rhythm. No gallops. ABDOMEN: Soft, nondistended, and nontender. Positive bowel sounds. EXTREMITIES: No cyanosis, clubbing, or edema. NEUROLOGIC: Cranial nerves II through XII grossly intact. Motor strength is 5/5 in all the extremities. MUSCULOSKELETAL: The patient has very tender chest wall on deep palpation as well as hypersensitive and very tender to touch in the skin. LABORATORY AND DIAGNOSTIC DATA: Laboratory on admission from the ER, sodium 140, potassium 4.0, chloride 106, bicarbonate 28, BUN 16, creatinine 1.3, GFR is greater than 60, and glucose is 88. First and second troponin, all zeros. The patient's WBC of 5.7, hemoglobin 15, hematocrit 44, and platelet is 204,000. Urinalysis, +1 leukocytes, 0 to 2 rbc, and 0 to [address] of the head showed that mild age-related volume loss, no acute intracranial blood or mass effect. Chest x-ray, no acute process. ASSESSMENT: 1. Atypical chest pain, most likely pleuritic chest pain. 2. Hypertension. 3. COPD. 4. History of hepatitis C positive. 5. Renal cell carcinoma, status post nephrectomy. PLAN: Admit the patient to telemetry. We will follow up laboratory. The patient has been followed up with Dr. Morse, Pulmonary/Critical Care. Start the patient on Decadron and IV hydration. Duplex of lower extremity. We will monitor laboratory closely. Code status is Full Code. DVT prophylaxis, heparin subcutaneous. Jaylen Lara M.D. DR: TAHIRA JOB#: [id number] CC:
[2017-12-19] MEDS: Lyrica 50mg cap ORAL SCH (21:56)
[2017-12-20] VITALS: BP 133/78
[2017-12-20 04:00] VITALS: BP 124/79
[2017-12-20 07:08] LABS: CHOLESTEROL 170 MG/DL (< 200); HDL CHOLESTEROL 61 MG/DL (40-60); TRIGLYCERIDES 20 MG/DL (30-150)
[2017-12-20 08:00] VITALS: BP 131/79
[2017-12-20] MEDS: Magnesium Oxide 400mg tab ORAL SCH ×2 (09:00→17:11)
[2017-12-20] MEDS: Heparin 5000 units/ml inj SUBQ SCH ×2 (09:36→21:19)
[2017-12-20] MEDS: Aspirin EC 81mg tab ORAL SCH (09:36)
--- NOTE | 2017-12-20 09:43 | Pulmonology Progress Note ---
Assessment/Plan Problems: (1) ACS (acute coronary syndrome) (2) Dizziness (3) COPD (chronic obstructive pulmonary disease) (4) HTN (hypertension) Assessment/Plan cardio note appreciated no more further cardiac testing awaiting neuro evaluation old dvt in legs, will call hem symptomatic treatment Subjective ROS Limited/Unobtainable: No Interval Events: still dizzy Allergies: Coded Allergies: No Known Allergies (Unverified , 10/27/12) Objective Last 24 Hour Vital Signs Date Time Temp Pulse Resp B/P (MAP) Pulse Ox O2 Delivery O2 Flow Rate FiO2 12/20/17 08:23 64 71 75 12/20/17 08:00 97.5 63 20 131/79 97 Room Air 97.5 12/20/17 04:00 97.3 62 18 124/79 95 Room Air 97.3 12/20/17 04:00 65 12/20/17 00:00 65 12/20/17 00:00 97.5 61 20 133/78 94 Room Air 97.5 12/19/17 21:50 61 143/88 96 12/19/17 20:00 62 12/19/17 20:00 97.7 61 12 127/79 94 Room Air 97.7 12/19/17 16:00 63 12/19/17 16:00 97.3 62 20 117/71 94 Room Air 97.3 12/19/17 12:00 97.0 76 18 122/65 97 Room Air 97.0 12/19/17 12:00 61 Intake and Output 12/19/17 12/20/17 19:00 07:00 Intake Total 700 ml 200 ml Output Total 1100 ml Balance 700 ml -900 ml Intake Oral 700 ml 200 ml Output Urine Total 1100 ml # Voids 3 General Appearance: WD/WN HEENT: normocephalic, atraumatic Respiratory/Chest: chest wall non-tender, lungs clear, normal breath sounds Cardiovascular: normal peripheral pulses, normal rate, regular rhythm Abdomen: normal bowel sounds, soft, non tender, no organomegaly Genitourinary: normal external genitalia Extremities: no clubbing Skin: no rash Neurologic/Psychiatric: energy conservation director II-XII grossly normal Lymphatic: no neck adenopathy Musculoskeletal: normal muscle bulk Laboratory Tests 12/20/17 05:10: Troponin I 0.000, Triglycerides Level 20L, Cholesterol Level 170, LDL Cholesterol 102H, HDL Cholesterol 61H, Cholesterol/HDL Ratio 2.8L Current Medications Medications (Trade) Dose Ordered Sig/Felipe Route PRN Reason Start Time Stop Time Status Last Admin Dose Admin Acetaminophen (Tylenol) 650 mg Q6H PRN ORAL Mild Pain/Temp > 100.5 12/18/17 21:00 01/17/18 20:59 Amlodipine Besylate (Norvasc) 5 mg DAILY ORAL 12/19/17 09:00 01/18/18 08:59 12/19/17 09:11 Aspirin (Ecotrin) 81 mg DAILY ORAL 12/19/17 09:00 01/18/18 08:59 12/19/17 09:11 Atorvastatin Calcium (Lipitor) 20 mg BEDTIME ORAL 12/19/17 21:00 01/18/18 20:59 12/19/17 21:00 Heparin Sodium (Porcine) (Heparin 5000 units/ml) 5,000 units EVERY 12 HOURS SUBQ 12/18/17 22:00 01/17/18 21:59 12/19/17 21:00 Ketorolac Tromethamine (Toradol 30mg) 15 mg Q6H PRN IV Severe Pain (7-10) 12/18/17 22:15 12/23/17 22:14 12/19/17 13:33 Magnesium Oxide (Mag-Ox 400mg) 400 mg BID ORAL 12/19/17 12:45 01/18/18 12:44 12/19/17 17:55 Pregabalin (Lyrica) 50 mg Q12HR ORAL 12/19/17 21:45 01/18/18 21:44 12/19/17 21:56 Sodium Chloride 1,000 ml @ 75 mls/hr [id number] IV 12/19/17 15:30 01/18/18 15:29 12/20/17 04:50 Tamsulosin HCl (Flomax) 0.4 mg QHS ORAL 12/19/17 21:00 01/18/18 20:59 12/19/17 21:00 Temazepam (Restoril) 15 mg HSPRN PRN ORAL Insomnia 12/18/17 22:15 12/25/17 22:14 Susy Morse MD Dec 20, 2017 09:43
[2017-12-20] MEDS: Lyrica 50mg cap ORAL SCH ×2 (09:46→21:17)
[2017-12-20 12:00] VITALS: BP 131/80
--- NOTE | 2017-12-20 14:07 | Neurology Progress Note ---
Interim History Interim History ROS Limited/Unobtainable: No Objective Physical Exam Last Vital Signs Date Time Temp Pulse Resp B/P (MAP) Pulse Ox O2 Delivery O2 Flow Rate FiO2 12/20/17 12:00 97.0 20 131/80 97 Room Air 97.0 12/20/17 12:00 82 Laboratory Tests Test 12/20/17 05:10 Troponin I 0.000 ng/mL (0.000-0.056) Triglycerides Level 20 MG/DL (30-150) L Cholesterol Level 170 MG/DL (< 200) LDL Cholesterol 102 mg/dL (<100) H HDL Cholesterol 61 MG/DL (40-60) H Cholesterol/HDL Ratio 2.8 (3.3-4.4) L Impression/Recommendations Recommendations #[id number] THEODORE MIKE Dec 20, 2017 14:07
--- NOTE | 2017-12-20 15:21 | Cardiology Progress Note ---
Assessment/Plan Assessment/Plan LE venous duplex positive for old thrombvus patient has pleuritis chest pain, need to rule out emboli Subjective Subjective The patient is resting, reports feeling fine, but with deep inspiration has severe left sdied chest pain radiating of posterior shoulder and arm Objective Last 24 Hour Vital Signs Date Time Temp Pulse Resp B/P (MAP) Pulse Ox O2 Delivery O2 Flow Rate FiO2 12/20/17 12:00 97.0 20 131/80 97 Room Air 97.0 12/20/17 12:00 82 12/20/17 09:37 71 134/78 12/20/17 08:23 64 71 75 12/20/17 08:00 63 12/20/17 08:00 97.5 63 20 131/79 97 Room Air 97.5 12/20/17 04:00 97.3 62 18 124/79 95 Room Air 97.3 12/20/17 04:00 65 12/20/17 00:00 65 12/20/17 00:00 97.5 61 20 133/78 94 Room Air 97.5 12/19/17 21:50 61 143/88 96 12/19/17 20:00 62 12/19/17 20:00 97.7 61 12 127/79 94 Room Air 97.7 12/19/17 16:00 63 12/19/17 16:00 97.3 62 20 117/71 94 Room Air 97.3 General Appearance: no apparent distress EENT: PERRL/EOMI Neck: supple, no JVD Rhythm: NSR Cardiovascular: regular rhythm Respiratory/Chest: rhonchi - bilaterally - few Abdomen: soft Extremities: non-tender Intake and Output 12/19/17 12/20/17 19:00 07:00 Intake Total 700 ml 200 ml Output Total 1100 ml Balance 700 ml -900 ml Intake Oral 700 ml 200 ml Output Urine Total 1100 ml # Voids 3 Laboratory Tests Test 12/20/17 05:10 Troponin I 0.000 ng/mL (0.000-0.056) Triglycerides Level 20 MG/DL (30-150) L Cholesterol Level 170 MG/DL (< 200) LDL Cholesterol 102 mg/dL (<100) H HDL Cholesterol 61 MG/DL (40-60) H Cholesterol/HDL Ratio 2.8 (3.3-4.4) ERLIN PERALES Dec 20, 2017 15:21
--- NOTE | 2017-12-20 15:40 | Internal Med Progress Note ---
Subjective Date of Service: Dec 20, 2017 Physician Name Magdiel Burnett Attending Physician Jaylen Lara MD Current Medications Medications (Trade) Dose Ordered Sig/Felipe Route PRN Reason Start Time Stop Time Status Last Admin Dose Admin Acetaminophen (Tylenol) 650 mg Q6H PRN ORAL Mild Pain/Temp > 100.5 12/18/17 21:00 01/17/18 20:59 Amlodipine Besylate (Norvasc) 5 mg DAILY ORAL 12/19/17 09:00 01/18/18 08:59 12/20/17 09:37 Aspirin (Ecotrin) 81 mg DAILY ORAL 12/19/17 09:00 01/18/18 08:59 12/20/17 09:36 Atorvastatin Calcium (Lipitor) 20 mg BEDTIME ORAL 12/19/17 21:00 01/18/18 20:59 12/19/17 21:00 Heparin Sodium (Porcine) (Heparin 5000 units/ml) 5,000 units EVERY 12 HOURS SUBQ 12/18/17 22:00 01/17/18 21:59 12/20/17 09:36 Ketorolac Tromethamine (Toradol 30mg) 15 mg Q6H PRN IV Severe Pain (7-10) 12/18/17 22:15 12/23/17 22:14 12/19/17 13:33 Magnesium Oxide (Mag-Ox 400mg) 400 mg BID ORAL 12/19/17 12:45 01/18/18 12:44 12/20/17 09:00 Pregabalin (Lyrica) 50 mg Q12HR ORAL 12/19/17 21:45 01/18/18 21:44 12/20/17 09:46 Sodium Chloride 1,000 ml @ 75 mls/hr [id number] IV 12/19/17 15:30 01/18/18 15:29 12/20/17 11:44 Tamsulosin HCl (Flomax) 0.4 mg QHS ORAL 12/19/17 21:00 01/18/18 20:59 12/19/17 21:00 Temazepam (Restoril) 15 mg HSPRN PRN ORAL Insomnia 12/18/17 22:15 12/25/17 22:14 Allergies: Coded Allergies: No Known Allergies (Unverified , 10/27/12) ROS Limited/Unobtainable: No Constitutional: Reports: no symptoms HEENT: Reports: no symptoms Cardiovascular: Reports: chest pain Gastrointestinal/Abdominal: Reports: no symptoms Genitourinary: Reports: no symptoms Neurologic/Psychiatric: Reports: no symptoms Subjective 72 YO M admitted with chest pain. Cover for Int [place]-Dr. Lara Objective Last Vital Signs Date Time Temp Pulse Resp B/P (MAP) Pulse Ox O2 Delivery O2 Flow Rate FiO2 12/20/17 12:00 97.0 20 131/80 97 Room Air 97.0 12/20/17 12:00 82 General Appearance: WD/WN, no apparent distress, alert EENT: PERRL/EOMI, normal ENT inspection Neck: non-tender, normal alignment, supple, normal inspection Cardiovascular: normal peripheral pulses, normal rate, regular rhythm, no gallop/murmur, no JVD Respiratory/Chest: chest wall non-tender, lungs clear, normal breath sounds, no respiratory distress, no accessory muscle use Abdomen: normal bowel sounds, non tender, soft, no organomegaly, no mass Extremities: normal range of motion, non-tender Neurologic: edge grinder II-XII grossly normal, no motor/sensory deficits Skin: normal pigmentation Laboratory Tests Test 12/20/17 05:10 Troponin I 0.000 ng/mL (0.000-0.056) Triglycerides Level 20 MG/DL (30-150) L Cholesterol Level 170 MG/DL (< 200) LDL Cholesterol 102 mg/dL (<100) H HDL Cholesterol 61 MG/DL (40-60) H Cholesterol/HDL Ratio 2.8 (3.3-4.4) L Intake and Output 12/19/17 12/20/17 19:00 07:00 Intake Total 700 ml 200 ml Output Total 1100 ml Balance 700 ml -900 ml Intake Oral 700 ml 200 ml Output Urine Total 1100 ml # Voids 3 Assessment/Plan Problem List: (1) Hepatitis C (2) Renal cell carcinoma Assessment & Plan: S/P nephrectomy (3) Chest pain Assessment & Plan: Troponin negative. See cardiology note. (4) HTN (hypertension) Assessment & Plan: Cont norvasc (5) COPD (chronic obstructive pulmonary disease) (6) Hypercholesteremia Assessment & Plan: Continue lipitor (7) BPH (benign prostatic hypertrophy) (8) Deep vein thrombosis (DVT) of left lower extremity Assessment & Plan: Chronic. Status: not improved MAGDIEL BURNETT Dec 20, 2017 15:40
[2017-12-20 16:00] VITALS: BP 137/76
[2017-12-20 20:00] VITALS: BP 136/88
[2017-12-20] MEDS: Tamsulosin 0.4mg cap ORAL SCH (21:13)
[2017-12-20] MEDS: Atorvastatin 20mg tab ORAL SCH (21:14)
[2017-12-21] VITALS: BP 131/81
[2017-12-21 04:00] VITALS: BP 133/78
--- NOTE | 2017-12-21 06:00 | Consultation ---
DATE OF CONSULTATION: 12/20/2017 NOTE: "POOR AUDIO QUALITY" NEUROLOGICAL CONSULTATION CONSULTING PHYSICIAN: Mahendra Bowser M.D. REQUESTING PHYSICIAN: Jaylen Lara M.D. HISTORY OF PRESENT ILLNESS: This is a 72-year-old man seen in neurological consultation, who informed me that a day prior to admission, he woke up in the morning feeling very dizzy, blurriness of vision, and had very unsteady gait. He felt that his left leg buckling up. In addition, he developed substernal chest pain without radiation. There was no other associated symptomatology. No changes in level of consciousness. No palpitation. No shortness of breath. No diaphoresis. No nausea or vomiting. Following day, symptoms somewhat improved, but still continued to have pain, difficulty ambulation with . He underwent an outpatient assessment with Dr. Lara and transferred to this facility. His vital signs on admission were stable and he was afebrile. He had right-sided nystagmus. Stat CT of the brain revealed no acute intracranial abnormalities. Lab work was obtained with normal CBC study, normal urinalysis, unremarkable electrolyte panel, elevated LFT panel, including troponin. Since admission until present, there were no changes in mental status, although the patient continued to have some discomfort in the chest area and weakness in both lower extremities, more on the left side, especially when attempting to ambulate today with physical therapy, he was limping to the left. PAST MEDICAL HISTORY: The patient has history of renal cell carcinoma, status post nephrectomy, hepatitis C positive, benign prostatic hypertrophy, COPD, hyperlipidemia, hypertension, history of being smoker. MEDICATIONS: Treatment at home included simvastatin, Flomax, Norvasc, albuterol, vitamin D, aspirin, . ALLERGIES: None reported. SOCIAL HISTORY: No alcohol. No drug abuse. Ex-smoker. FAMILY HISTORY: Noncontributory. REVIEW OF SYMPTOMS: Dizziness when getting up from supine position, unsteady gait, buckling left lower extremity, slight pressure pain in his chest. No shortness of breath. No abdominal pain or discomfort. No urinary or bowel incontinence. PHYSICAL EXAMINATION: GENERAL: A well-developed, well-nourished man, not in acute distress, lying comfortably in bed. His friends are at bedside. VITAL SIGNS: Now stable. Blood pressure 132/80, respirations 14, temperature 98.1 degrees. HEENT: Head normocephalic. No evidence of trauma. Eyes, ears, and throat are clear. NECK: Supple. No meningeal signs. MUSCULOSKELETAL: Unremarkable except palpable tenderness in both knees. Peripheral pulses 1+ and symmetric. MENTAL STATUS: Alert and oriented x3 with no evidence of aphasia or apraxia. Cognitive function normal. CRANIAL NERVE II: Pupils both 2 mm, responding to light and accommodation. Extraocular movement intact. No nystagmus. CRANIAL NERVE V: Normal corneal responses. CRANIAL NERVE VII: Slight facial asymmetry. CRANIAL NERVE VIII: Normal hearing. CRANIAL NERVES IX THROUGH XII: Within normal limits. MOTOR EXAMINATION: Normal muscle tone in both upper extremities. Able to lift with assist both lower extremities. Deep tendon reflexes 1+ bilaterally, symmetric. SENSORY EXAMINATION: Normal to pinprick and light touch. Gait is slow, stable. Romberg test positive. IMPRESSION: 1. New onset of slight gait ataxia, positional vertigo, and give-way weakness of left lower extremity, rule out stroke in posterior circulation. 2. Osteoarthritis, both knee pain. 3. Hypertension. 4. 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 5. Renal cell carcinoma, status post nephrectomy. RECOMMENDATIONS: MRI of the brain without contrast, carotid duplex study. PT/OT. Continue Ecotrin and statins. Meclizine 25 mg t.i.d. p.r.n. Thank you for allowing me to see this interesting patient in neurological consultation. Mahendra Bowser M.D. DR: Lovely JOB#: [id number] CC:
--- NOTE | 2017-12-21 07:26 | General Progress Note ---
Assessment/Plan Assessment/Plan # DVT of the left leg (FINAL results pending) --> begin apixaban for 3 mo Subjective Constitutional: Denies: no symptoms, chills, diaphoresis, fever, malaise, weakness, other HEENT: Denies: no symptoms, eye pain, blurred vision, tearing, double vision, ear pain, ear discharge, nose pain, nose congestion, throat pain, throat swelling, mouth pain, mouth swelling, other Cardiovascular: Denies: no symptoms, chest pain, edema, irregular heart rate, lightheadedness, palpitations, syncope, other Respiratory: Denies: no symptoms, cough, orthopnea, shortness of breath, SOB with excertion, SOB at rest, sputum, stridor, wheezing, other Gastrointestinal/Abdominal: Denies: no symptoms, abdomen distended, abdominal pain, black stools, tarry stools, blood in stool, constipated, diarrhea, difficulty swallowing, nausea, poor appetite, poor fluid intake, rectal bleeding , vomiting, other Genitourinary: Denies: no symptoms, burning, discharge, frequency, flank pain, hematuria, incontinence, pain, urgency, other Neurologic/Psychiatric: Denies: no symptoms, anxiety, depressed, emotional problems, headache, numbness, paresthesia, pre-existing deficit, seizure, tingling, tremors, weakness, other Endocrine: Denies: no symptoms, excessive sweating, flushing, intolerance to cold, intolerance to heat, increased hunger, increased thirst, increased urine, unexplained weight gain, unexplained weight loss, other Hematologic/Lymphatic: Denies: no symptoms, anemia, easy bleeding, easy bruising, other Allergies: Coded Allergies: No Known Allergies (Unverified , 10/27/12) Subjective no fevers orchills reported Objective Last 24 Hour Vital Signs Date Time Temp Pulse Resp B/P (MAP) Pulse Ox O2 Delivery O2 Flow Rate FiO2 12/21/17 04:00 62 12/21/17 04:00 97.8 72 18 133/78 96 Room Air 97.8 12/21/17 00:00 68 12/21/17 00:00 98.1 70 19 131/81 95 Room Air 98.1 12/20/17 20:00 98.0 74 18 136/88 95 Room Air 98.0 12/20/17 20:00 75 12/20/17 16:00 97.2 70 21 137/76 96 Room Air 97.2 12/20/17 16:00 73 12/20/17 12:00 97.0 20 131/80 97 Room Air 97.0 12/20/17 12:00 82 12/20/17 09:37 71 134/78 12/20/17 08:23 64 71 75 12/20/17 08:00 63 12/20/17 08:00 97.5 63 20 131/79 97 Room Air 97.5 Intake and Output 12/20/17 12/21/17 19:00 07:00 Intake Total 1975 ml 945 ml Output Total 220 ml 1440 ml Balance 1755 ml -495 ml Intake Oral 1150 ml IV Total 825 ml 825 ml Other 120 ml Output Urine Total 220 ml 1440 ml # Voids 1 2 # Bowel Movements 1 Height (Feet): 5 Height (Inches): 8.00 Weight (Pounds): 209 General Appearance: alert EENT: TMs normal Neck: normal inspection Cardiovascular: regular rhythm Respiratory/Chest: normal breath sounds Abdomen: no organomegaly Extremities: non-tender Edema: 1+ Leg (L), 1+ Leg (R) Neurologic: no motor/sensory deficits Ted Vieira MD Dec 21, 2017 07:26
[2017-12-21 08:00] VITALS: BP 123/76
[2017-12-21] MEDS: Aspirin EC 81mg tab ORAL SCH (08:53)
[2017-12-21] MEDS: Magnesium Oxide 400mg tab ORAL SCH ×2 (08:53→17:25)
[2017-12-21] MEDS: Lyrica 50mg cap ORAL SCH ×2 (08:55→21:18)
[2017-12-21] MEDS: Eliquis 2.5mg tablet ORAL SCH ×2 (08:57→17:25)
[2017-12-21 09:41] LABS: BASOPHILS % (AUTO) 0.9 % (0.0-2.0); HEMOGLOBIN 14.3 G/DL (14.2-18.0); LYMPHOCYTES % (AUTO) 36.1 % (20.0-45.0); MEAN CORPUSCULAR VOLUME 95 FL (80-99); MONOCYTES % (AUTO) 6.7 % (1.0-10.0); NEUTROPHILS % (AUTO) 55.3 % (45.0-75.0); PLATELET COUNT 204 K/UL (150-450); RED BLOOD COUNT 4.43 M/UL (4.70-6.10); RED CELL DISTRIBUTION WIDTH 12.1 % (11.6-14.8)
[2017-12-21 09:51] LABS: ANION GAP 6 mmol/L (5-15); BLOOD UREA NITROGEN 13 mg/dL (7-18); CALCIUM 8.8 MG/DL (8.5-10.1); CARBON DIOXIDE 29 MMOL/L (21-32); CHLORIDE 109 MMOL/L (98-107); CREATININE 1.3 MG/DL (0.55-1.30); POTASSIUM 4.1 MMOL/L (3.5-5.1); SODIUM 144 MMOL/L (136-145)
[2017-12-21 12:00] VITALS: BP 130/71
--- NOTE | 2017-12-21 12:57 | Pulmonology Progress Note ---
Assessment/Plan Problems: (1) ACS (acute coronary syndrome) (2) Dizziness (3) COPD (chronic obstructive pulmonary disease) (4) HTN (hypertension) Assessment/Plan cardio note appreciated Ct angio and MRI brain ordered Hem evaluation appreciated, Apixiban started symptomatic treatment might go to med/surg if CT chest negative for PE Subjective ROS Limited/Unobtainable: Yes Interval Events: no new complains Allergies: Coded Allergies: No Known Allergies (Unverified , 10/27/12) Objective Last 24 Hour Vital Signs Date Time Temp Pulse Resp B/P (MAP) Pulse Ox O2 Delivery O2 Flow Rate FiO2 12/21/17 12:00 97.5 65 22 130/71 98 Room Air 97.5 12/21/17 09:10 65 12/21/17 09:05 66 12/21/17 09:00 62 12/21/17 08:54 68 123/76 12/21/17 08:00 66 12/21/17 08:00 97.5 68 21 123/76 98 Room Air 97.5 12/21/17 04:00 62 12/21/17 04:00 97.8 72 18 133/78 96 Room Air 97.8 12/21/17 00:00 68 12/21/17 00:00 98.1 70 19 131/81 95 Room Air 98.1 12/20/17 20:00 98.0 74 18 136/88 95 Room Air 98.0 12/20/17 20:00 75 12/20/17 16:00 97.2 70 21 137/76 96 Room Air 97.2 12/20/17 16:00 73 Intake and Output 12/20/17 12/21/17 19:00 07:00 Intake Total 1975 ml 1020 ml Output Total 220 ml 1440 ml Balance 1755 ml -420 ml Intake Oral 1150 ml IV Total 825 ml 900 ml Other 120 ml Output Urine Total 220 ml 1440 ml # Voids 1 2 # Bowel Movements 1 Objective General Appearance: WD/WN HEENT: normocephalic, atraumatic Respiratory/Chest: chest wall non-tender, lungs clear, normal breath sounds Cardiovascular: normal peripheral pulses, normal rate, regular rhythm Abdomen: normal bowel sounds, soft, non tender, no organomegaly Genitourinary: normal external genitalia Extremities: no clubbing Skin: no rash Neurologic/Psychiatric: cage tender II-XII grossly normal Lymphatic: no neck adenopathy Musculoskeletal: normal muscle bulk HEENT: normocephalic Laboratory Tests 12/21/17 08:35: White Blood Count 7.0, Red Blood Count 4.43L, Hemoglobin 14.3, Hematocrit 42.0, Mean Corpuscular Volume 95, Mean Corpuscular Hemoglobin 32.2H, Mean Corpuscular Hemoglobin Concent 34.0, Red Cell Distribution Width 12.1, Platelet Count 204, Mean Platelet Volume 8.9, Neutrophils (%) (Auto) 55.3, Lymphocytes (%) (Auto) 36.1, Monocytes (%) (Auto) 6.7, Eosinophils (%) (Auto) 1.0, Basophils (%) (Auto ) 0.9, Sodium Level 144, Potassium Level 4.1, Chloride Level 109H, Carbon Dioxide Level 29, Anion Gap 6, Blood Urea Nitrogen 13, Creatinine 1.3, Estimat Glomerular Filtration Rate > 60, Glucose Level 164H, Calcium Level 8.8, Troponin I 0.000 Current Medications Medications (Trade) Dose Ordered Sig/Felipe Route PRN Reason Start Time Stop Time Status Last Admin Dose Admin Acetaminophen (Tylenol) 650 mg Q6H PRN ORAL Mild Pain/Temp > 100.5 12/18/17 21:00 01/17/18 20:59 Amlodipine Besylate (Norvasc) 5 mg DAILY ORAL 12/19/17 09:00 01/18/18 08:59 12/21/17 08:54 Apixaban (Eliquis) 5 mg BID ORAL 12/28/17 09:00 01/27/18 08:59 Apixaban (Eliquis) 10 mg BID ORAL 12/21/17 09:00 12/27/17 18:01 12/21/17 08:57 Aspirin (Ecotrin) 81 mg DAILY ORAL 12/19/17 09:00 01/18/18 08:59 12/21/17 08:53 Atorvastatin Calcium (Lipitor) 20 mg BEDTIME ORAL 12/19/17 21:00 01/18/18 20:59 12/20/17 21:14 Ketorolac Tromethamine (Toradol 30mg) 15 mg Q6H PRN IV Severe Pain (7-10) 12/18/17 22:15 12/23/17 22:14 12/19/17 13:33 Magnesium Oxide (Mag-Ox 400mg) 400 mg BID ORAL 12/19/17 12:45 01/18/18 12:44 12/21/17 08:53 Pregabalin (Lyrica) 50 mg Q12HR ORAL 12/19/17 21:45 01/18/18 21:44 12/21/17 08:55 Sodium Chloride 1,000 ml @ 75 mls/hr [id number] IV 12/19/17 15:30 01/18/18 15:29 12/21/17 00:39 Tamsulosin HCl (Flomax) 0.4 mg QHS ORAL 12/19/17 21:00 01/18/18 20:59 12/20/17 21:13 Temazepam (Restoril) 15 mg HSPRN PRN ORAL Insomnia 12/18/17 22:15 12/25/17 22:14 Susy Mrose MD Dec 21, 2017 12:57
[2017-12-21 16:00] VITALS: BP 131/86
--- NOTE | 2017-12-21 16:29 | Internal Med Progress Note ---
Subjective Date of Service: Dec 21, 2017 Physician Name Magdiel Burnett Attending Physician Jaylen Lara MD Current Medications Medications (Trade) Dose Ordered Sig/Felipe Route PRN Reason Start Time Stop Time Status Last Admin Dose Admin Acetaminophen (Tylenol) 650 mg Q6H PRN ORAL Mild Pain/Temp > 100.5 12/18/17 21:00 01/17/18 20:59 Amlodipine Besylate (Norvasc) 5 mg DAILY ORAL 12/19/17 09:00 01/18/18 08:59 12/21/17 08:54 Apixaban (Eliquis) 5 mg BID ORAL 12/28/17 09:00 01/27/18 08:59 Apixaban (Eliquis) 10 mg BID ORAL 12/21/17 09:00 12/27/17 18:01 12/21/17 08:57 Aspirin (Ecotrin) 81 mg DAILY ORAL 12/19/17 09:00 01/18/18 08:59 12/21/17 08:53 Atorvastatin Calcium (Lipitor) 20 mg BEDTIME ORAL 12/19/17 21:00 01/18/18 20:59 12/20/17 21:14 Ketorolac Tromethamine (Toradol 30mg) 15 mg Q6H PRN IV Severe Pain (7-10) 12/18/17 22:15 12/23/17 22:14 12/19/17 13:33 Magnesium Oxide (Mag-Ox 400mg) 400 mg BID ORAL 12/19/17 12:45 01/18/18 12:44 12/21/17 08:53 Pregabalin (Lyrica) 50 mg Q12HR ORAL 12/19/17 21:45 01/18/18 21:44 12/21/17 08:55 Sodium Chloride 1,000 ml @ 75 mls/hr [id number] IV 12/19/17 15:30 01/18/18 15:29 12/21/17 00:39 Tamsulosin HCl (Flomax) 0.4 mg QHS ORAL 12/19/17 21:00 01/18/18 20:59 12/20/17 21:13 Temazepam (Restoril) 15 mg HSPRN PRN ORAL Insomnia 12/18/17 22:15 12/25/17 22:14 Allergies: Coded Allergies: No Known Allergies (Unverified , 10/27/12) ROS Limited/Unobtainable: No Constitutional: Reports: no symptoms HEENT: Reports: no symptoms Cardiovascular: Reports: chest pain Respiratory: Reports: no symptoms Gastrointestinal/Abdominal: Reports: no symptoms Genitourinary: Reports: no symptoms Neurologic/Psychiatric: Reports: no symptoms Subjective 72 YO M admitted with chest pain. Cover for Int [place]-Dr. Lara Objective Last Vital Signs Date Time Temp Pulse Resp B/P (MAP) Pulse Ox O2 Delivery O2 Flow Rate FiO2 12/21/17 12:00 97.5 65 22 130/71 98 Room Air 97.5 Laboratory Tests Test 12/21/17 08:35 White Blood Count 7.0 K/UL (4.8-10.8) Red Blood Count 4.43 M/UL (4.70-6.10) L Hemoglobin 14.3 G/DL (14.2-18.0) Hematocrit 42.0 % (42.0-52.0) Mean Corpuscular Volume 95 FL (80-99) Mean Corpuscular Hemoglobin 32.2 PG (27.0-31.0) H Mean Corpuscular Hemoglobin Concent 34.0 G/DL (32.0-36.0) Red Cell Distribution Width 12.1 % (11.6-14.8) Platelet Count 204 K/UL (150-450) Mean Platelet Volume 8.9 FL (6.5-10.1) Neutrophils (%) (Auto) 55.3 % (45.0-75.0) Lymphocytes (%) (Auto) 36.1 % (20.0-45.0) Monocytes (%) (Auto) 6.7 % (1.0-10.0) Eosinophils (%) (Auto) 1.0 % (0.0-3.0) Basophils (%) (Auto) 0.9 % (0.0-2.0) Sodium Level 144 MMOL/L (136-145) Potassium Level 4.1 MMOL/L (3.5-5.1) Chloride Level 109 MMOL/L (98-107) H Carbon Dioxide Level 29 MMOL/L (21-32) Anion Gap 6 mmol/L (5-15) Blood Urea Nitrogen 13 mg/dL (7-18) Creatinine 1.3 MG/DL (0.55-1.30) Estimat Glomerular Filtration Rate > 60 mL/min (>60) Glucose Level 164 MG/DL (74-106) H Calcium Level 8.8 MG/DL (8.5-10.1) Troponin I 0.000 ng/mL (0.000-0.056) Intake and Output 12/20/17 12/21/17 19:00 07:00 Intake Total 1975 ml 1020 ml Output Total 220 ml 1440 ml Balance 1755 ml -420 ml Intake Oral 1150 ml IV Total 825 ml 900 ml Other 120 ml Output Urine Total 220 ml 1440 ml # Voids 1 2 # Bowel Movements 1 Objective General Appearance: WD/WN, no apparent distress, alert EENT: PERRL/EOMI, normal ENT inspection Neck: non-tender, normal alignment, supple, normal inspection Cardiovascular: normal peripheral pulses, normal rate, regular rhythm, no gallop/murmur, no JVD Respiratory/Chest: chest wall non-tender, lungs clear, normal breath sounds, no respiratory distress, no accessory muscle use Abdomen: normal bowel sounds, non tender, soft, no organomegaly, no mass Extremities: normal range of motion, non-tender 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 See cardiology note. Await CTA chest. (4) HTN (hypertension) Assessment & Plan: Cont norvasc (5) COPD (chronic obstructive pulmonary disease) (6) Hypercholesteremia Assessment & Plan: Continue lipitor (7) BPH (benign prostatic hypertrophy) (8) Deep vein thrombosis (DVT) of left lower extremity Assessment & Plan: Chronic. Status: not improved MAGDIEL BURNETT Dec 21, 2017 16:29
[2017-12-21] MEDS ORDERED: Morphine Sulfate 4mg/ml Inj IM PRN (16:30)
[2017-12-21] MEDS ORDERED: Morphine Sulfate 2mg/ml Inj IVP PRN (16:30)
[2017-12-21 20:00] VITALS: BP 132/85
--- NOTE | 2017-12-21 21:15 | Consultation ---
DATE OF CONSULTATION: 12/20/2017 HEMATOLOGY/ONCOLOGY CONSULTATION CONSULTING PHYSICIAN: Ted Vieira M.D. REQUESTING PHYSICIAN: Susy Morse M.D. REASON FOR CONSULTATION: Evaluation of old DVTs. IDENTIFICATION DATA: Dear Dr. Morse, The patient is a pleasant 72-year-old male with past medical history significant for renal cell carcinoma, status post nephrectomy, hypertension, COPD, dyslipidemia, BPH, hepatitis C positivity, cataract, initially presented to Dr. Lara's office complaining of chest pain, thereafter, transferred to [facility]. Otherwise, no history of pulmonary embolism noted. However, he does have a history of renal cell carcinoma as well as DVT history in the past of the lower extremities. Hematology Service was consulted for further evaluation and treatment. PAST MEDICAL HISTORY: Cardiac murmur, COPD, dyslipidemia, and hypertension. HOME MEDICATIONS: Tylenol, albuterol, Norvasc, vitamin D, Zocor, Flomax, and aspirin. ALLERGIES: No known drug allergies. SOCIAL HISTORY: Quit smoking. No alcohol use. No illicit drug use. FAMILY HISTORY: Noncontributory. REVIEW OF SYSTEMS: CONSTITUTIONAL: No fever, chills, or night sweats. SKIN: No rashes, bumps, or itching. HEENT: No headache, hearing or vision changes. BREASTS: No lumps, pain, or discharge. PULMONARY: No cough, sputum, or shortness of breath. GASTROINTESTINAL: No nausea, vomiting, or diarrhea. GENITOURINARY: No dysuria, frequency, or urgency. MUSCULOSKELETAL: No joint swelling, muscle pain, or trauma. PHYSICAL EXAMINATION: VITAL SIGNS: Reviewed. GENERAL: No distress. PULMONARY: Decreased breath sounds. CARDIOVASCULAR: Regular rate. No S3 or S4. ABDOMEN: Soft, nontender, and nondistended. EXTREMITIES: No cyanosis, swelling, or edema noted. LABORATORY AND DIAGNOSTIC DATA: WBC 5.7, hemoglobin 14.6, and platelet count 188,000. Imaging, CAT scan of the head, mild age-related volume loss, no acute intracranial process. ASSESSMENT AND RECOMMENDATION: 1. Deep venous thrombosis of the lower extremities, results are pending. Consider to begin anticoagulation depending on final results. 2. Acute coronary syndrome. No further cardiac testing necessary, has been seen by Cardiology Service, Dr. Suzy Escalante. 3. Renal cell carcinoma, status post nephrectomy. 4. Left-sided chest pain, pleuritic, rule out emboli. 5. Hepatitis C. 6. Hypertension, systolic blood pressure goal less than 140. I appreciate the consultation. Ted Vieira M.D. DR: Shabbir JOB#: [id number] CC:
--- NOTE | 2017-12-21 21:16 | Cardiology Progress Note ---
Assessment/Plan Assessment/Plan LCT of the chest to rule out pulmonary emboli was ordered yesterday but was not done, i discussed it with the nurse, she said she will call radiology Subjective Subjective The patient is resting, reports feeling fine, but with deep inspiration has severe left sdied chest pain radiating of posterior shoulder and arm Objective Last 24 Hour Vital Signs Date Time Temp Pulse Resp B/P (MAP) Pulse Ox O2 Delivery O2 Flow Rate FiO2 12/21/17 20:00 97.5 72 20 132/85 96 Room Air 97.5 12/21/17 16:00 62 12/21/17 16:00 97.8 65 19 131/86 97 Room Air 97.8 12/21/17 12:00 97.5 65 22 130/71 98 Room Air 97.5 12/21/17 12:00 61 12/21/17 09:10 65 12/21/17 09:05 66 12/21/17 09:00 62 12/21/17 08:54 68 123/76 12/21/17 08:00 66 12/21/17 08:00 97.5 68 21 123/76 98 Room Air 97.5 12/21/17 04:00 62 12/21/17 04:00 97.8 72 18 133/78 96 Room Air 97.8 12/21/17 00:00 68 12/21/17 00:00 98.1 70 19 131/81 95 Room Air 98.1 General Appearance: no apparent distress Neck: no JVD Rhythm: NSR Cardiovascular: normal rate Respiratory/Chest: no respiratory distress Abdomen: soft Extremities: non-tender Intake and Output 12/20/17 12/21/17 19:00 07:00 Intake Total 1975 ml 1020 ml Output Total 220 ml 1440 ml Balance 1755 ml -420 ml Intake Oral 1150 ml IV Total 825 ml 900 ml Other 120 ml Output Urine Total 220 ml 1440 ml # Voids 1 2 # Bowel Movements 1 Laboratory Tests Test 12/21/17 08:35 White Blood Count 7.0 K/UL (4.8-10.8) Red Blood Count 4.43 M/UL (4.70-6.10) L Hemoglobin 14.3 G/DL (14.2-18.0) Hematocrit 42.0 % (42.0-52.0) Mean Corpuscular Volume 95 FL (80-99) Mean Corpuscular Hemoglobin 32.2 PG (27.0-31.0) H Mean Corpuscular Hemoglobin Concent 34.0 G/DL (32.0-36.0) Red Cell Distribution Width 12.1 % (11.6-14.8) Platelet Count 204 K/UL (150-450) Mean Platelet Volume 8.9 FL (6.5-10.1) Neutrophils (%) (Auto) 55.3 % (45.0-75.0) Lymphocytes (%) (Auto) 36.1 % (20.0-45.0) Monocytes (%) (Auto) 6.7 % (1.0-10.0) Eosinophils (%) (Auto) 1.0 % (0.0-3.0) Basophils (%) (Auto) 0.9 % (0.0-2.0) Sodium Level 144 MMOL/L (136-145) Potassium Level 4.1 MMOL/L (3.5-5.1) Chloride Level 109 MMOL/L (98-107) H Carbon Dioxide Level 29 MMOL/L (21-32) Anion Gap 6 mmol/L (5-15) Blood Urea Nitrogen 13 mg/dL (7-18) Creatinine 1.3 MG/DL (0.55-1.30) Estimat Glomerular Filtration Rate > 60 mL/min (>60) Glucose Level 164 MG/DL (74-106) H Calcium Level 8.8 MG/DL (8.5-10.1) Troponin I 0.000 ng/mL (0.000-0.056) ERLIN CRAWLEY 18, 2018 21:16
[2017-12-21] MEDS: Tamsulosin 0.4mg cap ORAL SCH (21:19)
[2017-12-21] MEDS: Atorvastatin 20mg tab ORAL SCH (21:19)
--- NOTE | 2017-12-21 21:35 | General Progress Note ---
Assessment/Plan Assessment/Plan anxiety d/o depressive d/o reluctant to take meds provided ro/st Subjective Date patient seen: Dec 21, 2017 Neurologic/Psychiatric: Reports: anxiety, emotional problems Allergies: Coded Allergies: No Known Allergies (Unverified , 10/27/12) Objective Last 24 Hour Vital Signs Date Time Temp Pulse Resp B/P (MAP) Pulse Ox O2 Delivery O2 Flow Rate FiO2 12/21/17 20:00 97.5 72 20 132/85 96 Room Air 97.5 12/21/17 16:00 62 12/21/17 16:00 97.8 65 19 131/86 97 Room Air 97.8 12/21/17 12:00 97.5 65 22 130/71 98 Room Air 97.5 12/21/17 12:00 61 12/21/17 09:10 65 12/21/17 09:05 66 12/21/17 09:00 62 12/21/17 08:54 68 123/76 12/21/17 08:00 66 12/21/17 08:00 97.5 68 21 123/76 98 Room Air 97.5 12/21/17 04:00 62 12/21/17 04:00 97.8 72 18 133/78 96 Room Air 97.8 12/21/17 00:00 68 12/21/17 00:00 98.1 70 19 131/81 95 Room Air 98.1 Intake and Output 12/20/17 12/21/17 19:00 07:00 Intake Total 1975 ml 1020 ml Output Total 220 ml 1440 ml Balance 1755 ml -420 ml Intake Oral 1150 ml IV Total 825 ml 900 ml Other 120 ml Output Urine Total 220 ml 1440 ml # Voids 1 2 # Bowel Movements 1 Laboratory Tests 12/21/17 08:35: White Blood Count 7.0, Red Blood Count 4.43L, Hemoglobin 14.3, Hematocrit 42.0, Mean Corpuscular Volume 95, Mean Corpuscular Hemoglobin 32.2H, Mean Corpuscular Hemoglobin Concent 34.0, Red Cell Distribution Width 12.1, Platelet Count 204, Mean Platelet Volume 8.9, Neutrophils (%) (Auto) 55.3, Lymphocytes (%) (Auto) 36.1, Monocytes (%) (Auto) 6.7, Eosinophils (%) (Auto) 1.0, Basophils (%) (Auto ) 0.9, Sodium Level 144, Potassium Level 4.1, Chloride Level 109H, Carbon Dioxide Level 29, Anion Gap 6, Blood Urea Nitrogen 13, Creatinine 1.3, Estimat Glomerular Filtration Rate > 60, Glucose Level 164H, Calcium Level 8.8, Troponin I 0.000 Height (Feet): 5 Height (Inches): 8.00 Weight (Pounds): 209 Angelika Ley M.D. Dec 21, 2017 21:35
--- NOTE | 2017-12-21 21:35 | Consultation ---
History of Present Illness General Date patient seen: Dec 20, 2017 Chief Complaint: Chest Pain Present Illness HPI 72-year-old man with past medical history significant for renal cell carcinoma, status post nephrectomy, history of hypertension, COPD, dyslipidemia, BPH, hepatitis C positive, and cataract, who was presented chest pain. the pt c/o fatigue general body pain and dysphoria, the pt has no manic/ psychotic sxs no si/hi Allergies: Coded Allergies: No Known Allergies (Unverified , 10/27/12) Medication History Scheduled Acetaminophen* (Tylenol Extra Strength*), 500 MG ORAL Q6H Albuterol Sulfate (Ventolin Hfa), 1 PUFF INH EVERY 6 HOURS, (Reported) Amlodipine Besylate* (Amlodipine Besylate*), 5 MG ORAL DAILY, (Reported) Aspirin* (Aspir 81*), 81 MG ORAL DAILY, (Reported) Bacitracin Zinc/Polymyx B Sulf (Hm Double Antibiotic Ointment), 1 APPLIC TP BID Cephalexin* (Keflex*), 500 MG ORAL EVERY 12 HOURS Cholecalciferol (Vitamin D3)* (Vitamin D*), 2,000 UNITS ORAL DAILY, (Reported) Simvastatin (Zocor), 40 MG PO QHS, (Reported) Tamsulosin HCl (Flomax), 0.4 MG PO QHS, (Reported) Patient History History Provided By: Patient, Medical Record, PMD Healthcare decision maker Resuscitation status Full Code Advanced Directive on File No Past Medical/Surgical History Past Medical/Surgical History: (1) Weakness (2) Hypotension (3) Abdominal pain (4) Abdominal pain (5) Pyelonephritis, acute (6) Urinary tract infection (7) Proteus mirabilis infection (8) Flank pain (9) COPD exacerbation (10) Diabetes (11) Dyspnea (12) CHF (congestive heart failure) (13) Chest pain, atypical (14) Chest pain of uncertain etiology (15) Laceration of finger with delay in treatment (16) Chest pain (17) Low back pain (18) COPD (chronic obstructive pulmonary disease) (19) HTN (hypertension) (20) Dizziness (21) ACS (acute coronary syndrome) (22) BPH (benign prostatic hypertrophy) (23) Renal cell carcinoma (24) Hypercholesteremia (25) Hepatitis C (26) Deep vein thrombosis (DVT) of left lower extremity Review of Systems Psychiatric: Reports: prior hx, depressed feelings, emotional problems Physical Exam General Appearance: no apparent distress, alert Neurologic: alert, oriented x 3, responsive, depressed affect Last 24 Hour Vital Signs Date Time Temp Pulse Resp B/P (MAP) Pulse Ox O2 Delivery O2 Flow Rate FiO2 12/21/17 20:00 97.5 72 20 132/85 96 Room Air 97.5 12/21/17 16:00 62 12/21/17 16:00 97.8 65 19 131/86 97 Room Air 97.8 12/21/17 12:00 97.5 65 22 130/71 98 Room Air 97.5 12/21/17 12:00 61 12/21/17 09:10 65 12/21/17 09:05 66 12/21/17 09:00 62 12/21/17 08:54 68 123/76 12/21/17 08:00 66 12/21/17 08:00 97.5 68 21 123/76 98 Room Air 97.5 12/21/17 04:00 62 12/21/17 04:00 97.8 72 18 133/78 96 Room Air 97.8 12/21/17 00:00 68 12/21/17 00:00 98.1 70 19 131/81 95 Room Air 98.1 Intake and Output 12/20/17 12/21/17 19:00 07:00 Intake Total 1975 ml 1020 ml Output Total 220 ml 1440 ml Balance 1755 ml -420 ml Intake Oral 1150 ml IV Total 825 ml 900 ml Other 120 ml Output Urine Total 220 ml 1440 ml # Voids 1 2 # Bowel Movements 1 Laboratory Tests Test 12/21/17 08:35 White Blood Count 7.0 K/UL (4.8-10.8) Red Blood Count 4.43 M/UL (4.70-6.10) L Hemoglobin 14.3 G/DL (14.2-18.0) Hematocrit 42.0 % (42.0-52.0) Mean Corpuscular Volume 95 FL (80-99) Mean Corpuscular Hemoglobin 32.2 PG (27.0-31.0) H Mean Corpuscular Hemoglobin Concent 34.0 G/DL (32.0-36.0) Red Cell Distribution Width 12.1 % (11.6-14.8) Platelet Count 204 K/UL (150-450) Mean Platelet Volume 8.9 FL (6.5-10.1) Neutrophils (%) (Auto) 55.3 % (45.0-75.0) Lymphocytes (%) (Auto) 36.1 % (20.0-45.0) Monocytes (%) (Auto) 6.7 % (1.0-10.0) Eosinophils (%) (Auto) 1.0 % (0.0-3.0) Basophils (%) (Auto) 0.9 % (0.0-2.0) Sodium Level 144 MMOL/L (136-145) Potassium Level 4.1 MMOL/L (3.5-5.1) Chloride Level 109 MMOL/L (98-107) H Carbon Dioxide Level 29 MMOL/L (21-32) Anion Gap 6 mmol/L (5-15) Blood Urea Nitrogen 13 mg/dL (7-18) Creatinine 1.3 MG/DL (0.55-1.30) Estimat Glomerular Filtration Rate > 60 mL/min (>60) Glucose Level 164 MG/DL (74-106) H Calcium Level 8.8 MG/DL (8.5-10.1) Troponin I 0.000 ng/mL (0.000-0.056) Height (Feet): 5 Height (Inches): 8.00 Weight (Pounds): 209 Medications Current Medications Medications (Trade) Dose Ordered Sig/Felipe Route PRN Reason Start Time Stop Time Status Last Admin Dose Admin Acetaminophen (Tylenol) 650 mg Q6H PRN ORAL Mild Pain/Temp > 100.5 12/18/17 21:00 01/17/18 20:59 Amlodipine Besylate (Norvasc) 5 mg DAILY ORAL 12/19/17 09:00 01/18/18 08:59 12/21/17 08:54 Apixaban (Eliquis) 5 mg BID ORAL 12/28/17 09:00 01/27/18 08:59 Apixaban (Eliquis) 10 mg BID ORAL 12/21/17 09:00 12/27/17 18:01 12/21/17 17:25 Aspirin (Ecotrin) 81 mg DAILY ORAL 12/19/17 09:00 01/18/18 08:59 12/21/17 08:53 Atorvastatin Calcium (Lipitor) 20 mg BEDTIME ORAL 12/19/17 21:00 01/18/18 20:59 12/21/17 21:19 Magnesium Oxide (Mag-Ox 400mg) 400 mg BID ORAL 12/19/17 12:45 01/18/18 12:44 12/21/17 17:25 Morphine Sulfate (Morphine Sulfate) 2 mg Q4H PRN IVP Moderate Pain (Pain Scale 4-6) 12/21/17 16:30 12/28/17 16:29 Morphine Sulfate (Morphine Sulfate) 4 mg Q4H PRN IM Severe Pain (Pain Scale 7-10) 12/21/17 16:30 12/28/17 16:29 Pregabalin (Lyrica) 50 mg Q12HR ORAL 12/19/17 21:45 01/18/18 21:44 12/21/17 21:18 Tamsulosin HCl (Flomax) 0.4 mg QHS ORAL 12/19/17 21:00 01/18/18 20:59 12/21/17 21:19 Temazepam (Restoril) 15 mg HSPRN PRN ORAL Insomnia 12/18/17 22:15 12/25/17 22:14 Assessment/Plan Status: stable Assessment/Plan anxiety d/o depressive d/o reluctant to take meds provided simone/Angelika Noel M.D. Dec 21, 2017 21:34
[2017-12-22] VITALS (7 sets, daily range): BP systolic 103–139; BP diastolic 61–81
[2017-12-22 08:03] LABS: EOSINOPHILS % (AUTO) 2.1 % (0.0-3.0); HEMATOCRIT 42.6 % (42.0-52.0); HEMOGLOBIN 14.4 G/DL (14.2-18.0); LYMPHOCYTES % (AUTO) 38.6 % (20.0-45.0); MEAN CORPUSCULAR VOLUME 95 FL (80-99); MONOCYTES % (AUTO) 9.9 % (1.0-10.0); NEUTROPHILS % (AUTO) 48.4 % (45.0-75.0); PLATELET COUNT 203 K/UL (150-450); RED BLOOD COUNT 4.49 M/UL (4.70-6.10); RED CELL DISTRIBUTION WIDTH 12.4 % (11.6-14.8); WHITE BLOOD COUNT 5.6 K/UL (4.8-10.8)
[2017-12-22 08:20] LABS: ANION GAP 6 mmol/L (5-15); BLOOD UREA NITROGEN 15 mg/dL (7-18); CALCIUM 9.1 MG/DL (8.5-10.1); CARBON DIOXIDE 30 MMOL/L (21-32); CHLORIDE 109 MMOL/L (98-107); CREATININE 1.3 MG/DL (0.55-1.30); POTASSIUM 4.4 MMOL/L (3.5-5.1); SODIUM 145 MMOL/L (136-145)
[2017-12-22] MEDS: Aspirin EC 81mg tab ORAL SCH (08:36)
[2017-12-22] MEDS: Lyrica 50mg cap ORAL SCH ×2 (08:38→21:20)
[2017-12-22] MEDS: Magnesium Oxide 400mg tab ORAL SCH ×2 (08:38→18:37)
[2017-12-22] MEDS: Eliquis 2.5mg tablet ORAL SCH ×2 (08:39→21:21)
--- NOTE | 2017-12-22 09:04 | Diagnostic Imaging Report ---
ndication: Chest pain Technique: IV administration nonionic contrast. Spiral acquisitions obtained from the lung bases to the lung apices. Multiplanar and 3-D reconstructions were generated. Total dose length product 944.53 mGycm. CTDIvol(s) 28.38 mGy. Dose reduction achieved using automated exposure control Comparison: none Findings: No intraluminal filling defects or other findings to suggest acute pulmonary embolus demonstrated. No evidence of thoracic aortic aneurysm or dissection. Normal caliber pulmonary arteries. No evidence of right ventricular dilatation. There is suggestion of left ventricular muscular hypertrophy. The lungs demonstrate hyperinflation as well as small bullae bilaterally. There is scarring in the periphery of the right upper lobe. There is dependent atelectasis posteriorly bilaterally. No effusions, masses, infiltrates, or nodules. Heart size is normal. No air cardial effusion. No mediastinal or hilar mass or adenopathy. The thyroid is unremarkable. No axillary or chest wall mass or adenopathy. The included upper abdominal anatomy is unremarkable. Impression: No evidence of acute pulmonary embolus or other acute thoracic pathology. Possible left ventricular muscular hypertrophy COPD changes Minimal right upper lobe scarring and bibasilar atelectasis The CT scanner at [facility] is accredited by the [employer] and the scans are performed using protocols designed to limit radiation exposure to as low as reasonably achievable to attain images of sufficient resolution adequate for diagnostic evaluation.
--- NOTE | 2017-12-22 09:45 | Consultation ---
DATE OF CONSULTATION: 12/19/2017 CARDIOLOGY CONSULTATION CONSULTING PHYSICIAN: Dariusz Yin M.D. REFERRING PHYSICIANS: Jaylen Lara M.D. and Susy Morse M.D. REASON FOR REFERRAL: Chest pain. HISTORY OF PRESENT ILLNESS: This is a 72-year-old male, who I have seen on prior occasions back in 2016. The patient is admitted to the hospital with a main complaint of having spinning sensation especially when he changes position and this has been ongoing for 3 or 4 days and so, the patient presented to the hospital because of those symptoms and has been evaluated. On questioning, he indicates he has had some pain in the chest, although the pain apparently he has had before, but the area that encompasses is enlarging and going down the right leg and right arm and the back. This can last up to two days at a time and it gets worse when he has some kind of discomfort somewhere else. He has been able to walk, he says as recently as last week, he does not think that the pain gets worse with activity, but when he is lying down, it is better and when he is sitting up at times, he states it is worse. He does not have any PND or orthopnea. He does use two pillows. There is a sensation of lightheadedness on standing as well as a spinning sensation on standing as well and no history of heart pounding or palpitations. PAST MEDICAL HISTORY: Positive for history of hepatitis C, history of hypertension, hyperlipidemia, renal mass, hypertrophic cardiomyopathy, chronic low back pain, lumbar degenerative disease at L4, L5 and S1, annular tear of the lumbar disc at L4-L5, right lumbar radiculitis, history of radiculopathy, appendectomy, liver biopsy, nephrectomy, and history of chest pains and CT coronary angiography that was reportedly negative in 2013, although according to the report that the left main, no disease, in the mid LAD. No other coronary disease and a calcification score at that time of 54 that was 36th percentile. ALLERGIES: He is allergic to Dilaudid. SOCIAL HISTORY: He quit smoking. He does not drink alcoholic beverages . No drug use. REVIEW OF SYSTEMS: GASTROINTESTINAL: He has had some nausea at the onset of the vertigo symptoms. No bloody or black stools. He actually does not check. GENITOURINARY: Denies. PULMONARY: Denies. CONSTITUTIONAL: Denies. NEUROLOGIC: Denies except for the vertigo. No blurred vision or double vision. No paralysis. PHYSICAL EXAMINATION: GENERAL: Shows to be elderly gentleman, in no respiratory distress. He has pain whenever he tries to turn to the left side in his chest wall area or at times when he takes a deep breath on examination. NECK: Supple. No jugular venous distention. LUNGS: Clear to auscultation and percussion. CARDIAC: S1 is normal. S2 is normal. Regular rate and rhythm. No heaves, thrills, gallops, or rubs are noted. ABDOMEN: Soft and nontender. Positive bowel sounds. EXTREMITIES: There is no clubbing, cyanosis, nor edema. NEUROLOGICAL: He is awake, alert and responsive. LABORATORY AND DIAGNOSTIC DATA: He has got a white count of 4.7, hemoglobin 14.6, and platelet count of 188. Sodium 141, potassium 4.1, chloride 107, bicarbonate 27, BUN 16, creatinine 1.3, and glucose of 131. Magnesium of 1.7. Calcium is 8.8. Phosphorus 3.9. Liver function tests are normal. Two sets of cardiac enzymes 0.009. Yesterday, his proBNP was only 85. Albumin 3.6. Urinalysis fairly unremarkable. His CT scan of his head that he had just performed, mild age-related volume loss. No acute intracranial bleeds. His chest x-ray performed showed no acute processes. He has had a telemetry that was negative. His EKG shows basically sinus bradycardia at a rate of 55, really no significant ST-T wave abnormalities being documented. ASSESSMENT AND PLAN: 1. Atypical chest pain, suggestive of musculoskeletal pain. 2. Left anterior descending artery noted on CT scan in 2013. 3. History of hypertrophic heart disease. 4. History of nephrectomy for benign lesion. 5. History of chronic obstructive pulmonary disease. 6. Muscular spasms of the chest wall. This patient was seen in cardiac consultation. Two sets of cardiac enzymes are negative. The patient has had some chest pain that lasted almost two days. His symptoms of dizziness are most suggestive of vertigo that he has been experiencing. He does indicate he also has some lightheadedness. His orthostatic vitals will be ordered. An echocardiogram will be ordered, and unless he has got cardiac enzyme abnormalities or new EKG abnormalities, I do not favor performing any further perfusion imaging here at this time. I will follow the patient along with you. Dariusz Yin M.D. DR: GISSEL JOB#: [id number] CC:
--- NOTE | 2017-12-22 10:52 | Internal Med Progress Note ---
Subjective Date of Service: Dec 22, 2017 Physician Name Magdiel Burnett Attending Physician Jaylen Lara MD Current Medications Medications (Trade) Dose Ordered Sig/Felipe Route PRN Reason Start Time Stop Time Status Last Admin Dose Admin Acetaminophen (Tylenol) 650 mg Q6H PRN ORAL Mild Pain/Temp > 100.5 12/18/17 21:00 01/17/18 20:59 Amlodipine Besylate (Norvasc) 5 mg DAILY ORAL 12/19/17 09:00 01/18/18 08:59 12/22/17 08:38 Apixaban (Eliquis) 5 mg BID ORAL 12/28/17 09:00 01/27/18 08:59 Apixaban (Eliquis) 10 mg BID ORAL 12/21/17 09:00 12/27/17 18:01 12/22/17 08:39 Aspirin (Ecotrin) 81 mg DAILY ORAL 12/19/17 09:00 01/18/18 08:59 12/22/17 08:36 Atorvastatin Calcium (Lipitor) 20 mg BEDTIME ORAL 12/19/17 21:00 01/18/18 20:59 12/21/17 21:19 Magnesium Oxide (Mag-Ox 400mg) 400 mg BID ORAL 12/19/17 12:45 01/18/18 12:44 12/22/17 08:38 Morphine Sulfate (Morphine Sulfate) 2 mg Q4H PRN IVP Moderate Pain (Pain Scale 4-6) 12/21/17 16:30 12/28/17 16:29 Morphine Sulfate (Morphine Sulfate) 4 mg Q4H PRN IM Severe Pain (Pain Scale 7-10) 12/21/17 16:30 12/28/17 16:29 12/22/17 06:52 Pregabalin (Lyrica) 50 mg Q12HR ORAL 12/19/17 21:45 01/18/18 21:44 12/22/17 08:38 Tamsulosin HCl (Flomax) 0.4 mg QHS ORAL 12/19/17 21:00 01/18/18 20:59 12/21/17 21:19 Temazepam (Restoril) 15 mg HSPRN PRN ORAL Insomnia 12/18/17 22:15 12/25/17 22:14 Allergies: Coded Allergies: No Known Allergies (Unverified , 10/27/12) ROS Limited/Unobtainable: No Constitutional: Reports: no symptoms HEENT: Reports: no symptoms Cardiovascular: Reports: chest pain Respiratory: Reports: no symptoms Gastrointestinal/Abdominal: Reports: no symptoms Genitourinary: Reports: no symptoms Neurologic/Psychiatric: Reports: no symptoms Subjective 72 YO M admitted with chest pain. Cover for Int Kwaku Lara Objective Last Vital Signs Date Time Temp Pulse Resp B/P (MAP) Pulse Ox O2 Delivery O2 Flow Rate FiO2 12/22/17 08:38 64 122/71 12/22/17 08:00 97.3 18 97 Room Air 97.3 Laboratory Tests Test 12/22/17 06:30 White Blood Count 5.6 K/UL (4.8-10.8) Red Blood Count 4.49 M/UL (4.70-6.10) L Hemoglobin 14.4 G/DL (14.2-18.0) Hematocrit 42.6 % (42.0-52.0) Mean Corpuscular Volume 95 FL (80-99) Mean Corpuscular Hemoglobin 32.0 PG (27.0-31.0) H Mean Corpuscular Hemoglobin Concent 33.7 G/DL (32.0-36.0) Red Cell Distribution Width 12.4 % (11.6-14.8) Platelet Count 203 K/UL (150-450) Mean Platelet Volume 8.5 FL (6.5-10.1) Neutrophils (%) (Auto) 48.4 % (45.0-75.0) Lymphocytes (%) (Auto) 38.6 % (20.0-45.0) Monocytes (%) (Auto) 9.9 % (1.0-10.0) Eosinophils (%) (Auto) 2.1 % (0.0-3.0) Basophils (%) (Auto) 1.0 % (0.0-2.0) Sodium Level 145 MMOL/L (136-145) Potassium Level 4.4 MMOL/L (3.5-5.1) Chloride Level 109 MMOL/L (98-107) H Carbon Dioxide Level 30 MMOL/L (21-32) Anion Gap 6 mmol/L (5-15) Blood Urea Nitrogen 15 mg/dL (7-18) Creatinine 1.3 MG/DL (0.55-1.30) Estimat Glomerular Filtration Rate > 60 mL/min (>60) Glucose Level 112 MG/DL (74-106) H Calcium Level 9.1 MG/DL (8.5-10.1) Troponin I 0.000 ng/mL (0.000-0.056) Intake and Output 12/21/17 12/22/17 19:00 07:00 Intake Total 1247 ml Balance 1247 ml Intake Oral 760 ml IV Total 487 ml # Voids 4 Objective General Appearance: WD/WN, no apparent distress, alert EENT: PERRL/EOMI, normal ENT inspection Neck: non-tender, normal alignment, supple, normal inspection Cardiovascular: normal peripheral pulses, normal rate, regular rhythm, no gallop/murmur, no JVD Respiratory/Chest: chest wall non-tender, lungs clear, normal breath sounds, no respiratory distress, no accessory muscle use Abdomen: normal bowel sounds, non tender, soft, no organomegaly, no mass Extremities: normal range of motion, non-tender 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 See cardiology note. CTA chest=neg for Pulmonary embolism (4) HTN (hypertension) Assessment & Plan: Cont norvasc (5) COPD (chronic obstructive pulmonary disease) (6) Hypercholesteremia Assessment & Plan: Continue lipitor (7) BPH (benign prostatic hypertrophy) (8) Deep vein thrombosis (DVT) of left lower extremity Assessment & Plan: Chronic. (9) Ataxia Assessment & Plan: See neruology note. Await MRI brain Status: not improved MAGDIEL BURNETT Dec 22, 2017 10:52
--- NOTE | 2017-12-22 12:37 | Diagnostic Imaging Report ---
Indication: Left-sided weakness, altered level of consciousness, dizziness, blurred vision, unsteady gait Technique: sagittal T1 fast spin echo, axial T1 FLAIR, axial T2 FLAIR, axial T2 FS PROPELLER, axial T2* GRE, axial diffusion weighted images. ADC and exponential ADC maps generated Comparison: Head CT 12/18/2017 Findings: No abnormal areas of restricted diffusion to suggest acute infarction. No acute hemorrhage or edema. No mass effect nor midline shift. There is mild prominence to the ventricles and extra axial CSF spaces. There is minimal periventricular high T2 signal.. Visualized orbits and sinuses are unremarkable. Is vascular flow voids are preserved. Impression: Minimal age-related changes Negative for acute intracranial bleed, mass effect, or infarct
[2017-12-22] MEDS ORDERED: Morphine Sulfate 4mg/ml Inj IM PRN (18:00)
[2017-12-22] MEDS ORDERED: Morphine Sulfate 2mg/ml Inj IVP PRN (18:00)
--- NOTE | 2017-12-22 19:41 | Cardiology Progress Note ---
Assessment/Plan Assessment/Plan 1. Atypical chest pain, suggestive of musculoskeletal pain. 2. Left anterior descending artery noted on CT scan in 2014. 3. History of hypertrophic heart disease. 4. History of nephrectomy for benign lesion. 5. History of chronic obstructive pulmonary disease. 6. Muscular spasms of the chest walll ctpa neg for pulm embolism duplex no acute dvt all trop neg ok to dc form cardiac view point Subjective Cardiovascular: Reports: chest pain - better non nwo , Denies: lightheadedness , palpitations Respiratory: Denies: shortness of breath Genitourinary: Denies: burning Objective Last 24 Hour Vital Signs Date Time Temp Pulse Resp B/P (MAP) Pulse Ox O2 Delivery O2 Flow Rate FiO2 12/22/17 15:58 97.6 71 18 128/74 96 97.6 12/22/17 12:34 97.7 70 18 121/71 96 97.7 12/22/17 12:00 97.7 68 18 128/81 96 Room Air 97.7 12/22/17 09:00 64 66 73 12/22/17 08:38 64 122/71 12/22/17 08:00 97.3 64 18 122/71 97 Room Air 97.3 12/22/17 04:00 61 12/22/17 04:00 97.5 60 20 109/67 95 Room Air 97.5 12/22/17 00:00 97.7 71 20 103/61 95 Room Air 97.7 12/22/17 00:00 75 12/21/17 20:00 69 12/21/17 20:00 97.5 72 20 132/85 96 Room Air 97.5 General Appearance: alert Neck: supple Cardiovascular: normal rate, regular rhythm Respiratory/Chest: lungs clear Abdomen: soft, no organomegaly Extremities: no swelling Intake and Output 12/21/17 12/22/17 19:00 07:00 Intake Total 1247 ml Balance 1247 ml Intake Oral 760 ml IV Total 487 ml # Voids 4 Laboratory Tests Test 12/22/17 06:30 White Blood Count 5.6 K/UL (4.8-10.8) Red Blood Count 4.49 M/UL (4.70-6.10) L Hemoglobin 14.4 G/DL (14.2-18.0) Hematocrit 42.6 % (42.0-52.0) Mean Corpuscular Volume 95 FL (80-99) Mean Corpuscular Hemoglobin 32.0 PG (27.0-31.0) H Mean Corpuscular Hemoglobin Concent 33.7 G/DL (32.0-36.0) Red Cell Distribution Width 12.4 % (11.6-14.8) Platelet Count 203 K/UL (150-450) Mean Platelet Volume 8.5 FL (6.5-10.1) Neutrophils (%) (Auto) 48.4 % (45.0-75.0) Lymphocytes (%) (Auto) 38.6 % (20.0-45.0) Monocytes (%) (Auto) 9.9 % (1.0-10.0) Eosinophils (%) (Auto) 2.1 % (0.0-3.0) Basophils (%) (Auto) 1.0 % (0.0-2.0) Sodium Level 145 MMOL/L (136-145) Potassium Level 4.4 MMOL/L (3.5-5.1) Chloride Level 109 MMOL/L (98-107) H Carbon Dioxide Level 30 MMOL/L (21-32) Anion Gap 6 mmol/L (5-15) Blood Urea Nitrogen 15 mg/dL (7-18) Creatinine 1.3 MG/DL (0.55-1.30) Estimat Glomerular Filtration Rate > 60 mL/min (>60) Glucose Level 112 MG/DL (74-106) H Calcium Level 9.1 MG/DL (8.5-10.1) Troponin I 0.000 ng/mL (0.000-0.056) CRUZITO HOLLAND Dec 22, 2017 19:40
--- NOTE | 2017-12-22 21:20 | General Progress Note ---
Assessment/Plan Assessment/Plan anxiety d/o depressive d/o reluctant to take meds provided ro/st Subjective Date patient seen: Dec 22, 2017 Neurologic/Psychiatric: Reports: anxiety, depressed, emotional problems Allergies: Coded Allergies: No Known Allergies (Unverified , 10/27/12) Objective Last 24 Hour Vital Signs Date Time Temp Pulse Resp B/P (MAP) Pulse Ox O2 Delivery O2 Flow Rate FiO2 12/22/17 20:27 97.5 66 20 139/69 97 Room Air 97.5 12/22/17 15:58 97.6 71 18 128/74 96 97.6 12/22/17 12:34 97.7 70 18 121/71 96 97.7 12/22/17 12:00 97.7 68 18 128/81 96 Room Air 97.7 12/22/17 09:00 64 66 73 12/22/17 08:38 64 122/71 12/22/17 08:00 97.3 64 18 122/71 97 Room Air 97.3 12/22/17 04:00 61 12/22/17 04:00 97.5 60 20 109/67 95 Room Air 97.5 12/22/17 00:00 97.7 71 20 103/61 95 Room Air 97.7 12/22/17 00:00 75 Intake and Output 12/21/17 12/22/17 19:00 07:00 Intake Total 1247 ml Balance 1247 ml Intake Oral 760 ml IV Total 487 ml # Voids 4 Laboratory Tests 12/22/17 06:30: White Blood Count 5.6, Red Blood Count 4.49L, Hemoglobin 14.4, Hematocrit 42.6, Mean Corpuscular Volume 95, Mean Corpuscular Hemoglobin 32.0H, Mean Corpuscular Hemoglobin Concent 33.7, Red Cell Distribution Width 12.4, Platelet Count 203, Mean Platelet Volume 8.5, Neutrophils (%) (Auto) 48.4, Lymphocytes (%) (Auto) 38.6, Monocytes (%) (Auto) 9.9, Eosinophils (%) (Auto) 2.1, Basophils (%) (Auto ) 1.0, Sodium Level 145, Potassium Level 4.4, Chloride Level 109H, Carbon Dioxide Level 30, Anion Gap 6, Blood Urea Nitrogen 15, Creatinine 1.3, Estimat Glomerular Filtration Rate > 60, Glucose Level 112H, Calcium Level 9.1, Troponin I 0.000 Height (Feet): 5 Height (Inches): 8.00 Weight (Pounds): 209 General Appearance: no apparent distress, alert Neurologic: oriented x 3, responsive, depressed affect Angelika Ley M.D. Dec 22, 2017 21:20
[2017-12-22] MEDS: Tamsulosin 0.4mg cap ORAL SCH (21:21)
[2017-12-22] MEDS: Atorvastatin 20mg tab ORAL SCH (21:22)
--- NOTE | 2017-12-22 22:35 | Pulmonology Progress Note ---
Assessment/Plan Problems: (1) ACS (acute coronary syndrome) (2) Dizziness (3) COPD (chronic obstructive pulmonary disease) (4) HTN (hypertension) Assessment/Plan MRI reviewed cardio note appreciated Ct angio and MRI brain ordered Hem evaluation appreciated, Apixiban started symptomatic treatment CT chest negative for PE, showed COPD Subjective ROS Limited/Unobtainable: No Constitutional: Reports: no symptoms HEENT: Repors: no symptoms Respiratory: Reports: no symptoms Allergies: Coded Allergies: No Known Allergies (Unverified , 10/27/12) Objective Last 24 Hour Vital Signs Date Time Temp Pulse Resp B/P (MAP) Pulse Ox O2 Delivery O2 Flow Rate FiO2 12/22/17 20:27 97.5 66 20 139/69 97 Room Air 97.5 12/22/17 15:58 97.6 71 18 128/74 96 97.6 12/22/17 12:34 97.7 70 18 121/71 96 97.7 12/22/17 12:00 97.7 68 18 128/81 96 Room Air 97.7 12/22/17 09:00 64 66 73 12/22/17 08:38 64 122/71 12/22/17 08:00 97.3 64 18 122/71 97 Room Air 97.3 12/22/17 04:00 61 12/22/17 04:00 97.5 60 20 109/67 95 Room Air 97.5 12/22/17 00:00 97.7 71 20 103/61 95 Room Air 97.7 12/22/17 00:00 75 Intake and Output 12/21/17 12/22/17 19:00 07:00 Intake Total 1247 ml Balance 1247 ml Intake Oral 760 ml IV Total 487 ml # Voids 4 Objective General Appearance: WD/WN HEENT: normocephalic, atraumatic Respiratory/Chest: chest wall non-tender, lungs clear, normal breath sounds Cardiovascular: normal peripheral pulses, normal rate, regular rhythm Abdomen: normal bowel sounds, soft, non tender, no organomegaly Genitourinary: normal external genitalia Extremities: no clubbing Skin: no rash Neurologic/Psychiatric: performance test consultant II-XII grossly normal Lymphatic: no neck adenopathy Musculoskeletal: normal muscle bulk Laboratory Tests 12/22/17 06:30: White Blood Count 5.6, Red Blood Count 4.49L, Hemoglobin 14.4, Hematocrit 42.6, Mean Corpuscular Volume 95, Mean Corpuscular Hemoglobin 32.0H, Mean Corpuscular Hemoglobin Concent 33.7, Red Cell Distribution Width 12.4, Platelet Count 203, Mean Platelet Volume 8.5, Neutrophils (%) (Auto) 48.4, Lymphocytes (%) (Auto) 38.6, Monocytes (%) (Auto) 9.9, Eosinophils (%) (Auto) 2.1, Basophils (%) (Auto ) 1.0, Sodium Level 145, Potassium Level 4.4, Chloride Level 109H, Carbon Dioxide Level 30, Anion Gap 6, Blood Urea Nitrogen 15, Creatinine 1.3, Estimat Glomerular Filtration Rate > 60, Glucose Level 112H, Calcium Level 9.1, Troponin I 0.000 Current Medications Medications (Trade) Dose Ordered Sig/Felipe Route PRN Reason Start Time Stop Time Status Last Admin Dose Admin Amlodipine Besylate (Norvasc) 5 mg DAILY ORAL 12/23/17 09:00 01/18/18 08:59 Apixaban (Eliquis) 5 mg BID ORAL 12/28/17 09:00 01/27/18 08:59 Apixaban (Eliquis) 10 mg BID ORAL 12/22/17 18:00 12/27/17 18:01 12/22/17 21:21 Aspirin (Ecotrin) 81 mg DAILY ORAL 12/23/17 09:00 01/18/18 08:59 Atorvastatin Calcium (Lipitor) 20 mg BEDTIME ORAL 12/22/17 21:00 01/18/18 20:59 12/22/17 21:22 Magnesium Oxide (Mag-Ox 400mg) 400 mg BID ORAL 12/22/17 18:00 01/18/18 12:44 12/22/17 18:37 Morphine Sulfate (Morphine Sulfate) 2 mg Q4H PRN IVP Moderate Pain (Pain Scale 4-6) 12/22/17 18:00 12/28/17 17:59 Morphine Sulfate (Morphine Sulfate) 4 mg Q4H PRN IM Severe Pain (Pain Scale 7-10) 12/22/17 18:00 12/28/17 17:59 Pregabalin (Lyrica) 50 mg Q12HR ORAL 12/22/17 21:00 01/18/18 21:44 12/22/17 21:20 Tamsulosin HCl (Flomax) 0.4 mg QHS ORAL 12/22/17 21:00 01/18/18 20:59 12/22/17 21:21 Temazepam (Restoril) 15 mg HSPRN PRN ORAL Insomnia 12/22/17 18:00 12/25/17 17:59 Susy Morse MD Dec 22, 2017 22:35
[2017-12-23 00:31] VITALS: BP 124/72
[2017-12-23 04:55] VITALS: BP 130/76
[2017-12-23 08:00] VITALS: BP 131/75
[2017-12-23 08:00] LABS: BASOPHILS % (AUTO) 1.5 % (0.0-2.0); EOSINOPHILS % (AUTO) 2.5 % (0.0-3.0); HEMATOCRIT 42.7 % (42.0-52.0); HEMOGLOBIN 14.5 G/DL (14.2-18.0); LYMPHOCYTES % (AUTO) 36.1 % (20.0-45.0); MEAN CORPUSCULAR VOLUME 94 FL (80-99); MONOCYTES % (AUTO) 10.4 % (1.0-10.0); NEUTROPHILS % (AUTO) 49.5 % (45.0-75.0); PLATELET COUNT 184 K/UL (150-450); RED BLOOD COUNT 4.52 M/UL (4.70-6.10); WHITE BLOOD COUNT 6.2 K/UL (4.8-10.8)
[2017-12-23 08:05] LABS: ANION GAP 5 mmol/L (5-15); BLOOD UREA NITROGEN 13 mg/dL (7-18); CALCIUM 9.2 MG/DL (8.5-10.1); CARBON DIOXIDE 31 MMOL/L (21-32); CHLORIDE 108 MMOL/L (98-107); CREATININE 1.2 MG/DL (0.55-1.30); POTASSIUM 4.5 MMOL/L (3.5-5.1); SODIUM 144 MMOL/L (136-145)
[2017-12-23] MEDS: Aspirin EC 81mg tab ORAL SCH (09:47)
[2017-12-23] MEDS: Eliquis 2.5mg tablet ORAL SCH ×2 (09:50→18:46)
[2017-12-23] MEDS: Lyrica 50mg cap ORAL SCH ×2 (09:55→20:25)
[2017-12-23] MEDS: Magnesium Oxide 400mg tab ORAL SCH ×2 (09:56→18:46)
[2017-12-23 12:00] VITALS: BP 136/56
--- NOTE | 2017-12-23 13:56 | General Progress Note ---
Assessment/Plan Assessment/Plan # DVT of the left leg (FINAL results pending) --> begin apixaban for 3 mo #. Chest pain. --> On pain control. --> Improving. Subjective Date patient seen: Dec 22, 2017 Constitutional: Denies: no symptoms, chills, diaphoresis, fever, malaise, weakness, other HEENT: Denies: no symptoms, eye pain, blurred vision, tearing, double vision, ear pain, ear discharge, nose pain, nose congestion, throat pain, throat swelling, mouth pain, mouth swelling, other Cardiovascular: Denies: no symptoms, chest pain, edema, irregular heart rate, lightheadedness, palpitations, syncope, other Respiratory: Denies: no symptoms, cough, orthopnea, shortness of breath, SOB with excertion, SOB at rest, sputum, stridor, wheezing, other Gastrointestinal/Abdominal: Denies: no symptoms, abdomen distended, abdominal pain, black stools, tarry stools, blood in stool, constipated, diarrhea, difficulty swallowing, nausea, poor appetite, poor fluid intake, rectal bleeding , vomiting, other Genitourinary: Denies: no symptoms, burning, discharge, frequency, flank pain, hematuria, incontinence, pain, urgency, other Neurologic/Psychiatric: Denies: no symptoms, anxiety, depressed, emotional problems, headache, numbness, paresthesia, pre-existing deficit, seizure, tingling, tremors, weakness, other Allergies: Coded Allergies: No Known Allergies (Unverified , 10/27/12) Subjective On pain control. NAD. Objective Last 24 Hour Vital Signs Date Time Temp Pulse Resp B/P (MAP) Pulse Ox O2 Delivery O2 Flow Rate FiO2 12/23/17 12:00 97.6 65 16 136/56 94 97.6 12/23/17 09:59 84 131/75 12/23/17 09:36 71 75 82 12/23/17 08:00 Room Air 12/23/17 08:00 97.5 84 16 131/75 97 97.5 12/23/17 04:55 97.3 62 20 130/76 92 Room Air 97.3 12/23/17 04:00 Room Air 12/23/17 00:31 97.7 66 20 124/72 93 Room Air 97.7 12/23/17 00:00 Room Air 12/22/17 20:27 97.5 66 20 139/69 97 Room Air 97.5 12/22/17 20:00 Room Air 12/22/17 15:58 97.6 71 18 128/74 96 97.6 Intake and Output 12/22/17 12/23/17 19:00 07:00 Intake Total 480 ml 480 ml Output Total 300 ml 600 ml Balance 180 ml -120 ml Intake Oral 480 ml 480 ml Output Urine Total 300 ml 600 ml Laboratory Tests 12/23/17 06:25: White Blood Count 6.2, Red Blood Count 4.52L, Hemoglobin 14.5, Hematocrit 42.7, Mean Corpuscular Volume 94, Mean Corpuscular Hemoglobin 32.1H, Mean Corpuscular Hemoglobin Concent 34.0, Red Cell Distribution Width 12.0, Platelet Count 184, Mean Platelet Volume 9.1, Neutrophils (%) (Auto) 49.5, Lymphocytes (%) (Auto) 36.1, Monocytes (%) (Auto) 10.4H, Eosinophils (%) (Auto) 2.5, Basophils (%) ( Auto) 1.5, Sodium Level 144, Potassium Level 4.5, Chloride Level 108H, Carbon Dioxide Level 31, Anion Gap 5, Blood Urea Nitrogen 13, Creatinine 1.2, Estimat Glomerular Filtration Rate > 60, Glucose Level 117H, Calcium Level 9.2 Height (Feet): 5 Height (Inches): 8.00 Weight (Pounds): 209 General Appearance: no apparent distress Respiratory/Chest: lungs clear Abdomen: soft Ted Vieira MD Dec 23, 2017 13:56
[2017-12-23 15:53] VITALS: BP 139/79
--- NOTE | 2017-12-23 17:12 | Internal Med Progress Note ---
Subjective Date of Service: Dec 23, 2017 Physician Name Magdiel Burnett Attending Physician Jaylen Lara MD Current Medications Medications (Trade) Dose Ordered Sig/Felipe Route PRN Reason Start Time Stop Time Status Last Admin Dose Admin Amlodipine Besylate (Norvasc) 5 mg DAILY ORAL 12/23/17 09:00 01/18/18 08:59 12/23/17 09:59 Apixaban (Eliquis) 5 mg BID ORAL 12/28/17 09:00 01/27/18 08:59 Apixaban (Eliquis) 10 mg BID ORAL 12/22/17 18:00 12/27/17 18:01 12/23/17 09:50 Aspirin (Ecotrin) 81 mg DAILY ORAL 12/23/17 09:00 01/18/18 08:59 12/23/17 09:47 Atorvastatin Calcium (Lipitor) 20 mg BEDTIME ORAL 12/22/17 21:00 01/18/18 20:59 12/22/17 21:22 Magnesium Oxide (Mag-Ox 400mg) 400 mg BID ORAL 12/22/17 18:00 01/18/18 12:44 12/23/17 09:56 Morphine Sulfate (Morphine Sulfate) 2 mg Q4H PRN IVP Moderate Pain (Pain Scale 4-6) 12/22/17 18:00 12/28/17 17:59 Morphine Sulfate (Morphine Sulfate) 4 mg Q4H PRN IM Severe Pain (Pain Scale 7-10) 12/22/17 18:00 12/28/17 17:59 Pregabalin (Lyrica) 50 mg Q12HR ORAL 12/22/17 21:00 01/18/18 21:44 12/23/17 09:55 Tamsulosin HCl (Flomax) 0.4 mg QHS ORAL 12/22/17 21:00 01/18/18 20:59 12/22/17 21:21 Temazepam (Restoril) 15 mg HSPRN PRN ORAL Insomnia 12/22/17 18:00 12/25/17 17:59 Allergies: Coded Allergies: No Known Allergies (Unverified , 10/27/12) ROS Limited/Unobtainable: No Constitutional: Reports: no symptoms HEENT: Reports: no symptoms Cardiovascular: Reports: no symptoms Respiratory: Reports: no symptoms Gastrointestinal/Abdominal: Reports: no symptoms Genitourinary: Reports: no symptoms Neurologic/Psychiatric: Reports: no symptoms Subjective 72 YO M admitted with chest pain. Cover for Int [facility]-Dr. Lara Objective Last Vital Signs Date Time Temp Pulse Resp B/P (MAP) Pulse Ox O2 Delivery O2 Flow Rate FiO2 12/23/17 15:53 97.5 86 18 139/79 97 97.5 12/23/17 08:00 Room Air Laboratory Tests Test 12/23/17 06:25 White Blood Count 6.2 K/UL (4.8-10.8) Red Blood Count 4.52 M/UL (4.70-6.10) L Hemoglobin 14.5 G/DL (14.2-18.0) Hematocrit 42.7 % (42.0-52.0) Mean Corpuscular Volume 94 FL (80-99) Mean Corpuscular Hemoglobin 32.1 PG (27.0-31.0) H Mean Corpuscular Hemoglobin Concent 34.0 G/DL (32.0-36.0) Red Cell Distribution Width 12.0 % (11.6-14.8) Platelet Count 184 K/UL (150-450) Mean Platelet Volume 9.1 FL (6.5-10.1) Neutrophils (%) (Auto) 49.5 % (45.0-75.0) Lymphocytes (%) (Auto) 36.1 % (20.0-45.0) Monocytes (%) (Auto) 10.4 % (1.0-10.0) H Eosinophils (%) (Auto) 2.5 % (0.0-3.0) Basophils (%) (Auto) 1.5 % (0.0-2.0) Sodium Level 144 MMOL/L (136-145) Potassium Level 4.5 MMOL/L (3.5-5.1) Chloride Level 108 MMOL/L (98-107) H Carbon Dioxide Level 31 MMOL/L (21-32) Anion Gap 5 mmol/L (5-15) Blood Urea Nitrogen 13 mg/dL (7-18) Creatinine 1.2 MG/DL (0.55-1.30) Estimat Glomerular Filtration Rate > 60 mL/min (>60) Glucose Level 117 MG/DL (74-106) H Calcium Level 9.2 MG/DL (8.5-10.1) Intake and Output 12/22/17 12/23/17 19:00 07:00 Intake Total 480 ml 480 ml Output Total 300 ml 600 ml Balance 180 ml -120 ml Intake Oral 480 ml 480 ml Output Urine Total 300 ml 600 ml Objective General Appearance: WD/WN, no apparent distress, alert EENT: PERRL/EOMI, normal ENT inspection Neck: non-tender, normal alignment, supple, normal inspection Cardiovascular: normal peripheral pulses, normal rate, regular rhythm, no gallop/murmur, no JVD Respiratory/Chest: chest wall non-tender, lungs clear, normal breath sounds, no respiratory distress, no accessory muscle use Abdomen: normal bowel sounds, non tender, soft, no organomegaly, no mass Extremities: normal range of motion, non-tender Neurologic: field marketing coordinator II-XII 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 See cardiology note. CTA chest=neg for Pulmonary embolism (4) HTN (hypertension) Assessment & Plan: Cont norvasc (5) COPD (chronic obstructive pulmonary disease) (6) Hypercholesteremia Assessment & Plan: Continue lipitor (7) BPH (benign prostatic hypertrophy) (8) Deep vein thrombosis (DVT) of left lower extremity Assessment & Plan: Chronic-see hematology note. (9) Ataxia Assessment & Plan: See neruology note. Await MRI brain Status: progressing Assessment/Plan Discharge planning MAGDIEL BURNETT Dec 23, 2017 17:12
--- NOTE | 2017-12-23 17:38 | Cardiology Report ---
APPROVED REPORT EXAM: Two-dimensional and M-mode echocardiogram with Doppler and color Doppler. INDICATION Chest Pain M-Mode DIMENSIONS IVSd0.8 (0.7-1.1cm)Left Atrium (MM)3.6 (1.6-4.0cm) LVDd4.2 (3.5-5.6cm)Aortic Root3.2 (2.0-3.7cm) PWd1.0 (0.7-1.1cm)Aortic Cusp Exc.2.0 (1.5-2.0cm) LVDs2.2 (2.5-4.0cm) PWs0.8 cm Normal left ventricular chamber size, systolic function and wall motion. Left ventricular ejection fraction estimated to be 65-70%. No evidence of left ventricular hypertrophy. No evidence of pericardial or pleural effusion. All other cardiac chamber sizes are within normal limits. Focal aortic valve sclerosis with adequate cusp excursion. Thickened mitral valve leaflets with normal excursion. Mild mitral annulus and aortic root calcification. Pulmonic valve not well visualized. Normal tricuspid valve structure. IVC is normal in size and collapsible with respiration. A color flow and spectral Doppler study was performed and revealed: No aortic regurgitation. No mitral regurgitation. Mitral diastolic velocities suggest reduced left ventricular relaxation c/w diastolic dysfunction grade 1. No tricuspid regurgitation.
--- NOTE | 2017-12-23 18:45 | Cardiology Report ---
APPROVED REPORT EKG Measurement Heart [id number] Normal sinus rhythm with sinus arrhythmia Normal ECG
--- NOTE | 2017-12-23 18:53 | Cardiology Report ---
APPROVED REPORT EKG Measurement Heart [id number] Sinus bradycardia Otherwise normal ECG
--- NOTE | 2017-12-23 19:33 | Pulmonology Progress Note ---
Assessment/Plan Problems: (1) ACS (acute coronary syndrome) (2) Dizziness (3) COPD (chronic obstructive pulmonary disease) (4) HTN (hypertension) Assessment/Plan CT chest negative for PE, showed COPD MRI brain reviewed Hem evaluation appreciated, Apixiban started symptomatic treatment pt/ot dc planning Subjective ROS Limited/Unobtainable: No HEENT: Repors: no symptoms Allergies: Coded Allergies: No Known Allergies (Unverified , 10/27/12) Objective Last 24 Hour Vital Signs Date Time Temp Pulse Resp B/P (MAP) Pulse Ox O2 Delivery O2 Flow Rate FiO2 12/23/17 15:53 97.5 86 18 139/79 97 97.5 12/23/17 15:53 Room Air 12/23/17 12:00 Room Air 12/23/17 12:00 97.6 65 16 136/56 94 97.6 12/23/17 09:59 84 131/75 12/23/17 09:36 71 75 82 12/23/17 08:00 Room Air 12/23/17 08:00 97.5 84 16 131/75 97 97.5 12/23/17 04:55 97.3 62 20 130/76 92 Room Air 97.3 12/23/17 04:00 Room Air 12/23/17 00:31 97.7 66 20 124/72 93 Room Air 97.7 12/23/17 00:00 Room Air 12/22/17 20:27 97.5 66 20 139/69 97 Room Air 97.5 12/22/17 20:00 Room Air Intake and Output 12/22/17 12/23/17 19:00 07:00 Intake Total 480 ml 480 ml Output Total 300 ml 600 ml Balance 180 ml -120 ml Intake Oral 480 ml 480 ml Output Urine Total 300 ml 600 ml Objective General Appearance: WD/WN HEENT: normocephalic, atraumatic Respiratory/Chest: chest wall non-tender, lungs clear, normal breath sounds Cardiovascular: normal peripheral pulses, normal rate, regular rhythm Abdomen: normal bowel sounds, soft, non tender, no organomegaly Genitourinary: normal external genitalia Extremities: no clubbing Skin: no rash Neurologic/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: pastoral 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 grossly normal Lymphatic: no neck adenopathy Musculoskeletal: normal muscle bulk Laboratory Tests 12/23/17 06:25: White Blood Count 6.2, Red Blood Count 4.52L, Hemoglobin 14.5, Hematocrit 42.7, Mean Corpuscular Volume 94, Mean Corpuscular Hemoglobin 32.1H, Mean Corpuscular Hemoglobin Concent 34.0, Red Cell Distribution Width 12.0, Platelet Count 184, Mean Platelet Volume 9.1, Neutrophils (%) (Auto) 49.5, Lymphocytes (%) (Auto) 36.1, Monocytes (%) (Auto) 10.4H, Eosinophils (%) (Auto) 2.5, Basophils (%) ( Auto) 1.5, Sodium Level 144, Potassium Level 4.5, Chloride Level 108H, Carbon Dioxide Level 31, Anion Gap 5, Blood Urea Nitrogen 13, Creatinine 1.2, Estimat Glomerular Filtration Rate > 60, Glucose Level 117H, Calcium Level 9.2 Current Medications Medications (Trade) Dose Ordered Sig/Felipe Route PRN Reason Start Time Stop Time Status Last Admin Dose Admin Amlodipine Besylate (Norvasc) 5 mg DAILY ORAL 12/23/17 09:00 01/18/18 08:59 12/23/17 09:59 Apixaban (Eliquis) 5 mg BID ORAL 12/28/17 09:00 01/27/18 08:59 Apixaban (Eliquis) 10 mg BID ORAL 12/22/17 18:00 12/27/17 18:01 12/23/17 18:46 Aspirin (Ecotrin) 81 mg DAILY ORAL 12/23/17 09:00 01/18/18 08:59 12/23/17 09:47 Atorvastatin Calcium (Lipitor) 20 mg BEDTIME ORAL 12/22/17 21:00 01/18/18 20:59 12/22/17 21:22 Magnesium Oxide (Mag-Ox 400mg) 400 mg BID ORAL 12/22/17 18:00 01/18/18 12:44 12/23/17 18:46 Morphine Sulfate (Morphine Sulfate) 2 mg Q4H PRN IVP Moderate Pain (Pain Scale 4-6) 12/22/17 18:00 12/28/17 17:59 Morphine Sulfate (Morphine Sulfate) 4 mg Q4H PRN IM Severe Pain (Pain Scale 7-10) 12/22/17 18:00 12/28/17 17:59 Pregabalin (Lyrica) 50 mg Q12HR ORAL 12/22/17 21:00 01/18/18 21:44 12/23/17 09:55 Tamsulosin HCl (Flomax) 0.4 mg QHS ORAL 12/22/17 21:00 01/18/18 20:59 12/22/17 21:21 Temazepam (Restoril) 15 mg HSPRN PRN ORAL Insomnia 12/22/17 18:00 12/25/17 17:59 Susy Morse MD Dec 23, 2017 19:33
[2017-12-23 19:42] VITALS: BP 127/77
[2017-12-23] MEDS: Atorvastatin 20mg tab ORAL SCH (20:27)
[2017-12-23] MEDS: Tamsulosin 0.4mg cap ORAL SCH (20:27)
--- NOTE | 2017-12-23 20:49 | General Progress Note ---
Assessment/Plan Assessment/Plan anxiety d/o depressive d/o reluctant to take meds provided ro/st Subjective Date patient seen: Dec 23, 2017 Neurologic/Psychiatric: Reports: anxiety, depressed, emotional problems Allergies: Coded Allergies: No Known Allergies (Unverified , 10/27/12) Objective Last 24 Hour Vital Signs Date Time Temp Pulse Resp B/P (MAP) Pulse Ox O2 Delivery O2 Flow Rate FiO2 12/23/17 19:46 97 Room Air 12/23/17 19:42 97.0 75 20 127/77 97 Room Air 97.0 12/23/17 15:53 97.5 86 18 139/79 97 97.5 12/23/17 15:53 Room Air 12/23/17 12:00 Room Air 12/23/17 12:00 97.6 65 16 136/56 94 97.6 12/23/17 09:59 84 131/75 12/23/17 09:36 71 75 82 12/23/17 08:00 Room Air 12/23/17 08:00 97.5 84 16 131/75 97 97.5 12/23/17 04:55 97.3 62 20 130/76 92 Room Air 97.3 12/23/17 04:00 Room Air 12/23/17 00:31 97.7 66 20 124/72 93 Room Air 97.7 12/23/17 00:00 Room Air Intake and Output 12/22/17 12/23/17 19:00 07:00 Intake Total 480 ml 480 ml Output Total 300 ml 600 ml Balance 180 ml -120 ml Intake Oral 480 ml 480 ml Output Urine Total 300 ml 600 ml Laboratory Tests 12/23/17 06:25: White Blood Count 6.2, Red Blood Count 4.52L, Hemoglobin 14.5, Hematocrit 42.7, Mean Corpuscular Volume 94, Mean Corpuscular Hemoglobin 32.1H, Mean Corpuscular Hemoglobin Concent 34.0, Red Cell Distribution Width 12.0, Platelet Count 184, Mean Platelet Volume 9.1, Neutrophils (%) (Auto) 49.5, Lymphocytes (%) (Auto) 36.1, Monocytes (%) (Auto) 10.4H, Eosinophils (%) (Auto) 2.5, Basophils (%) ( Auto) 1.5, Sodium Level 144, Potassium Level 4.5, Chloride Level 108H, Carbon Dioxide Level 31, Anion Gap 5, Blood Urea Nitrogen 13, Creatinine 1.2, Estimat Glomerular Filtration Rate > 60, Glucose Level 117H, Calcium Level 9.2 Height (Feet): 5 Height (Inches): 8.00 Weight (Pounds): 209 Neurologic: alert, oriented x 3, responsive, depressed affect Angelika Ley M.D. Dec 23, 2017 20:49
[2017-12-24 00:27] VITALS: BP 116/71
[2017-12-24 04:45] VITALS: BP 98/55
[2017-12-24 07:39] LABS: BASOPHILS % (AUTO) 0.9 % (0.0-2.0); EOSINOPHILS % (AUTO) 1.4 % (0.0-3.0); HEMATOCRIT 41.8 % (42.0-52.0); HEMOGLOBIN 14.5 G/DL (14.2-18.0); MEAN CORPUSCULAR VOLUME 95 FL (80-99); MONOCYTES % (AUTO) 9.9 % (1.0-10.0); NEUTROPHILS % (AUTO) 55.8 % (45.0-75.0); PLATELET COUNT 195 K/UL (150-450); RED BLOOD COUNT 4.41 M/UL (4.70-6.10); RED CELL DISTRIBUTION WIDTH 12.5 % (11.6-14.8); WHITE BLOOD COUNT 6.3 K/UL (4.8-10.8)
[2017-12-24 07:49] LABS: ANION GAP 6 mmol/L (5-15); BLOOD UREA NITROGEN 16 mg/dL (7-18); CALCIUM 9.1 MG/DL (8.5-10.1); CARBON DIOXIDE 29 MMOL/L (21-32); CHLORIDE 108 MMOL/L (98-107); CREATININE 1.3 MG/DL (0.55-1.30); POTASSIUM 4.6 MMOL/L (3.5-5.1); SODIUM 143 MMOL/L (136-145)
[2017-12-24 08:00] VITALS: BP 126/68
[2017-12-24] MEDS: Eliquis 2.5mg tablet ORAL SCH ×2 (09:17→18:47)
[2017-12-24] MEDS: Lyrica 50mg cap ORAL SCH ×2 (09:18→20:39)
[2017-12-24] MEDS: Magnesium Oxide 400mg tab ORAL SCH ×2 (09:18→18:47)
[2017-12-24] MEDS: Aspirin EC 81mg tab ORAL SCH (09:18)
--- NOTE | 2017-12-24 11:50 | General Progress Note ---
Assessment/Plan Assessment/Plan # DVT of the left leg (FINAL results pending) --> begin apixaban for 3 mo #. Chest pain. --> On pain control. --> Improving. Subjective Allergies: Coded Allergies: No Known Allergies (Unverified , 10/27/12) Subjective On pain control. NAD. Objective Last 24 Hour Vital Signs Date Time Temp Pulse Resp B/P (MAP) Pulse Ox O2 Delivery O2 Flow Rate FiO2 12/24/17 09:18 76 126/68 12/24/17 09:00 73 63 84 12/24/17 08:00 97.5 76 19 126/68 96 97.5 12/24/17 04:45 97.3 65 20 98/55 92 Room Air 97.3 12/24/17 04:45 92 Room Air 12/24/17 00:27 97.3 74 20 116/71 93 Room Air 97.3 12/23/17 19:46 97 Room Air 12/23/17 19:42 97.0 75 20 127/77 97 Room Air 97.0 12/23/17 15:53 97.5 86 18 139/79 97 97.5 12/23/17 15:53 Room Air 12/23/17 12:00 Room Air 12/23/17 12:00 97.6 65 16 136/56 94 97.6 Intake and Output 12/23/17 12/24/17 19:00 07:00 Intake Total 480 ml Balance 480 ml Intake Oral 480 ml # Bowel Movements 1 Laboratory Tests 12/24/17 06:05: White Blood Count 6.3, Red Blood Count 4.41L, Hemoglobin 14.5, Hematocrit 41.8L , Mean Corpuscular Volume 95, Mean Corpuscular Hemoglobin 32.9H, Mean Corpuscular Hemoglobin Concent 34.7, Red Cell Distribution Width 12.5, Platelet Count 195, Mean Platelet Volume 8.9, Neutrophils (%) (Auto) 55.8, Lymphocytes (% ) (Auto) 32.0, Monocytes (%) (Auto) 9.9, Eosinophils (%) (Auto) 1.4, Basophils ( %) (Auto) 0.9, Sodium Level 143, Potassium Level 4.6, Chloride Level 108H, Carbon Dioxide Level 29, Anion Gap 6, Blood Urea Nitrogen 16, Creatinine 1.3, Estimat Glomerular Filtration Rate > 60, Glucose Level 131H, Calcium Level 9.1 Height (Feet): 5 Height (Inches): 8.00 Weight (Pounds): 209 Ted Vieira MD Dec 24, 2017 11:50
--- NOTE | 2017-12-24 11:54 | General Progress Note ---
Assessment/Plan Assessment/Plan #. Deep Venous Thrombosis of Left Leg (Final results pending) --> Start Apixaban for 3 months #. Atypical chest pain. --> S/P Chest CT: No evidence of acute pulmonary embolus or other acute thoracic pathology. --> Possible left ventricular muscular hypertrophy. COPD changes --> Minimal right upper lobe scarring and bibasilar atelectasis #. COPD. #. Hypertension. --> BP improved. #. Renal cell carcinoma, s/p nephrectomy. Subjective Date patient seen: Dec 23, 2017 Constitutional: Denies: no symptoms, chills, diaphoresis, fever, malaise, weakness, other HEENT: Denies: no symptoms, eye pain, blurred vision, tearing, double vision, ear pain, ear discharge, nose pain, nose congestion, throat pain, throat swelling, mouth pain, mouth swelling, other Cardiovascular: Denies: no symptoms, chest pain, edema, irregular heart rate, lightheadedness, palpitations, syncope, other Respiratory: Denies: no symptoms, cough, orthopnea, shortness of breath, SOB with excertion, SOB at rest, sputum, stridor, wheezing, other Gastrointestinal/Abdominal: Denies: no symptoms, abdomen distended, abdominal pain, black stools, tarry stools, blood in stool, constipated, diarrhea, difficulty swallowing, nausea, poor appetite, poor fluid intake, rectal bleeding , vomiting, other Genitourinary: Denies: no symptoms, burning, discharge, frequency, flank pain, hematuria, incontinence, pain, urgency, other Neurologic/Psychiatric: Denies: no symptoms, anxiety, depressed, emotional problems, headache, numbness, paresthesia, pre-existing deficit, seizure, tingling, tremors, weakness, other Allergies: Coded Allergies: No Known Allergies (Unverified , 10/27/12) Subjective On pain control. No major events overnight. Objective Last 24 Hour Vital Signs Date Time Temp Pulse Resp B/P (MAP) Pulse Ox O2 Delivery O2 Flow Rate FiO2 12/24/17 09:18 76 126/68 12/24/17 09:00 73 63 84 12/24/17 08:00 97.5 76 19 126/68 96 97.5 12/24/17 04:45 97.3 65 20 98/55 92 Room Air 97.3 12/24/17 04:45 92 Room Air 12/24/17 00:27 97.3 74 20 116/71 93 Room Air 97.3 12/23/17 19:46 97 Room Air 12/23/17 19:42 97.0 75 20 127/77 97 Room Air 97.0 12/23/17 15:53 97.5 86 18 139/79 97 97.5 12/23/17 15:53 Room Air 12/23/17 12:00 Room Air 12/23/17 12:00 97.6 65 16 136/56 94 97.6 Intake and Output 12/23/17 12/24/17 19:00 07:00 Intake Total 480 ml Balance 480 ml Intake Oral 480 ml # Bowel Movements 1 Laboratory Tests 12/24/17 06:05: White Blood Count 6.3, Red Blood Count 4.41L, Hemoglobin 14.5, Hematocrit 41.8L , Mean Corpuscular Volume 95, Mean Corpuscular Hemoglobin 32.9H, Mean Corpuscular Hemoglobin Concent 34.7, Red Cell Distribution Width 12.5, Platelet Count 195, Mean Platelet Volume 8.9, Neutrophils (%) (Auto) 55.8, Lymphocytes (% ) (Auto) 32.0, Monocytes (%) (Auto) 9.9, Eosinophils (%) (Auto) 1.4, Basophils ( %) (Auto) 0.9, Sodium Level 143, Potassium Level 4.6, Chloride Level 108H, Carbon Dioxide Level 29, Anion Gap 6, Blood Urea Nitrogen 16, Creatinine 1.3, Estimat Glomerular Filtration Rate > 60, Glucose Level 131H, Calcium Level 9.1 Height (Feet): 5 Height (Inches): 8.00 Weight (Pounds): 209 General Appearance: no apparent distress Respiratory/Chest: decreased breath sounds Abdomen: soft Ted Vieira MD Dec 24, 2017 11:54
[2017-12-24 12:00] VITALS: BP 125/72
[2017-12-24] MEDS ORDERED: ELIQUIS2.5 MG ORAL (13:10)
--- NOTE | 2017-12-24 13:11 | Internal Med Progress Note ---
Subjective Date of Service: Dec 24, 2017 Physician Name Magdiel Palencia Attending Physician Jaylen Lara MD Current Medications Medications (Trade) Dose Ordered Sig/Felipe Route PRN Reason Start Time Stop Time Status Last Admin Dose Admin Amlodipine Besylate (Norvasc) 5 mg DAILY ORAL 12/23/17 09:00 01/18/18 08:59 12/24/17 09:18 Apixaban (Eliquis) 5 mg BID ORAL 12/28/17 09:00 01/27/18 08:59 Apixaban (Eliquis) 10 mg BID ORAL 12/22/17 18:00 12/27/17 18:01 12/24/17 09:17 Aspirin (Ecotrin) 81 mg DAILY ORAL 12/23/17 09:00 01/18/18 08:59 12/24/17 09:18 Atorvastatin Calcium (Lipitor) 20 mg BEDTIME ORAL 12/22/17 21:00 01/18/18 20:59 12/23/17 20:27 Magnesium Oxide (Mag-Ox 400mg) 400 mg BID ORAL 12/22/17 18:00 01/18/18 12:44 12/24/17 09:18 Morphine Sulfate (Morphine Sulfate) 2 mg Q4H PRN IVP Moderate Pain (Pain Scale 4-6) 12/22/17 18:00 12/28/17 17:59 Morphine Sulfate (Morphine Sulfate) 4 mg Q4H PRN IM Severe Pain (Pain Scale 7-10) 12/22/17 18:00 12/28/17 17:59 12/24/17 09:18 Pregabalin (Lyrica) 50 mg Q12HR ORAL 12/22/17 21:00 01/18/18 21:44 12/24/17 09:18 Tamsulosin HCl (Flomax) 0.4 mg QHS ORAL 12/22/17 21:00 01/18/18 20:59 12/23/17 20:27 Temazepam (Restoril) 15 mg HSPRN PRN ORAL Insomnia 12/22/17 18:00 12/25/17 17:59 Allergies: Coded Allergies: No Known Allergies (Unverified , 10/27/12) ROS Limited/Unobtainable: No Constitutional: Reports: no symptoms HEENT: Reports: no symptoms Cardiovascular: Reports: no symptoms Respiratory: Reports: no symptoms Gastrointestinal/Abdominal: Reports: no symptoms Genitourinary: Reports: no symptoms Neurologic/Psychiatric: Reports: no symptoms Subjective 72 YO M admitted with chest pain. Cover for Int [place]-Dr. Lara Objective Last Vital Signs Date Time Temp Pulse Resp B/P (MAP) Pulse Ox O2 Delivery O2 Flow Rate FiO2 12/24/17 09:18 76 126/68 12/24/17 08:00 97.5 19 96 97.5 12/24/17 04:45 Room Air Laboratory Tests Test 12/24/17 06:05 White Blood Count 6.3 K/UL (4.8-10.8) Red Blood Count 4.41 M/UL (4.70-6.10) L Hemoglobin 14.5 G/DL (14.2-18.0) Hematocrit 41.8 % (42.0-52.0) L Mean Corpuscular Volume 95 FL (80-99) Mean Corpuscular Hemoglobin 32.9 PG (27.0-31.0) H Mean Corpuscular Hemoglobin Concent 34.7 G/DL (32.0-36.0) Red Cell Distribution Width 12.5 % (11.6-14.8) Platelet Count 195 K/UL (150-450) Mean Platelet Volume 8.9 FL (6.5-10.1) Neutrophils (%) (Auto) 55.8 % (45.0-75.0) Lymphocytes (%) (Auto) 32.0 % (20.0-45.0) Monocytes (%) (Auto) 9.9 % (1.0-10.0) Eosinophils (%) (Auto) 1.4 % (0.0-3.0) Basophils (%) (Auto) 0.9 % (0.0-2.0) Sodium Level 143 MMOL/L (136-145) Potassium Level 4.6 MMOL/L (3.5-5.1) Chloride Level 108 MMOL/L (98-107) H Carbon Dioxide Level 29 MMOL/L (21-32) Anion Gap 6 mmol/L (5-15) Blood Urea Nitrogen 16 mg/dL (7-18) Creatinine 1.3 MG/DL (0.55-1.30) Estimat Glomerular Filtration Rate > 60 mL/min (>60) Glucose Level 131 MG/DL (74-106) H Calcium Level 9.1 MG/DL (8.5-10.1) Intake and Output 12/23/17 12/24/17 19:00 07:00 Intake Total 480 ml Balance 480 ml Intake Oral 480 ml # Bowel Movements 1 Objective General Appearance: WD/WN, no apparent distress, alert EENT: PERRL/EOMI, normal ENT inspection Neck: non-tender, normal alignment, supple, normal inspection Cardiovascular: normal peripheral pulses, normal rate, regular rhythm, no gallop/murmur, no JVD Respiratory/Chest: chest wall non-tender, lungs clear, normal breath sounds, no respiratory distress, no accessory muscle use Abdomen: normal bowel sounds, non tender, soft, no organomegaly, no mass Extremities: normal range of motion, non-tender 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 See cardiology note. CTA chest=neg for Pulmonary embolism (4) HTN (hypertension) Assessment & Plan: Cont norvasc (5) COPD (chronic obstructive pulmonary disease) (6) Hypercholesteremia Assessment & Plan: Continue lipitor (7) BPH (benign prostatic hypertrophy) (8) Deep vein thrombosis (DVT) of left lower extremity Assessment & Plan: Chronic-see hematology note. (9) Ataxia Assessment & Plan: See neruology note. Await MRI brain Assessment/Plan Discharge planning: Home MAGDIEL Dillon Dec 24, 2017 13:11
[2017-12-24 16:00] VITALS: BP 113/68
--- NOTE | 2017-12-24 17:23 | Pulmonology Progress Note ---
Assessment/Plan Problems: (1) ACS (acute coronary syndrome) (2) Dizziness (3) COPD (chronic obstructive pulmonary disease) (4) HTN (hypertension) Assessment/Plan CT chest negative for PE, showed COPD MRI brain reviewed Hem evaluation appreciated, Apixiban started symptomatic treatment pt/ot dc planning Subjective ROS Limited/Unobtainable: No Constitutional: Reports: no symptoms HEENT: Repors: no symptoms Respiratory: Reports: no symptoms Allergies: Coded Allergies: No Known Allergies (Unverified , 10/27/12) Objective Last 24 Hour Vital Signs Date Time Temp Pulse Resp B/P (MAP) Pulse Ox O2 Delivery O2 Flow Rate FiO2 12/24/17 16:00 97.9 66 18 113/68 95 97.9 12/24/17 12:00 97.7 73 18 125/72 96 97.7 12/24/17 09:18 76 126/68 12/24/17 09:00 73 63 84 12/24/17 08:00 97.5 76 19 126/68 96 97.5 12/24/17 04:45 97.3 65 20 98/55 92 Room Air 97.3 12/24/17 04:45 92 Room Air 12/24/17 00:27 97.3 74 20 116/71 93 Room Air 97.3 12/23/17 19:46 97 Room Air 12/23/17 19:42 97.0 75 20 127/77 97 Room Air 97.0 Intake and Output 12/23/17 12/24/17 19:00 07:00 Intake Total 480 ml Balance 480 ml Intake Oral 480 ml # Bowel Movements 1 Objective General Appearance: WD/WN HEENT: normocephalic, atraumatic Respiratory/Chest: chest wall non-tender, lungs clear, normal breath sounds Cardiovascular: normal peripheral pulses, normal rate, regular rhythm Abdomen: normal bowel sounds, soft, non tender, no organomegaly Genitourinary: normal external genitalia Extremities: no clubbing Skin: no rash 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 Lymphatic: no neck adenopathy Musculoskeletal: normal muscle bulk Laboratory Tests 12/24/17 06:05: White Blood Count 6.3, Red Blood Count 4.41L, Hemoglobin 14.5, Hematocrit 41.8L , Mean Corpuscular Volume 95, Mean Corpuscular Hemoglobin 32.9H, Mean Corpuscular Hemoglobin Concent 34.7, Red Cell Distribution Width 12.5, Platelet Count 195, Mean Platelet Volume 8.9, Neutrophils (%) (Auto) 55.8, Lymphocytes (% ) (Auto) 32.0, Monocytes (%) (Auto) 9.9, Eosinophils (%) (Auto) 1.4, Basophils ( %) (Auto) 0.9, Sodium Level 143, Potassium Level 4.6, Chloride Level 108H, Carbon Dioxide Level 29, Anion Gap 6, Blood Urea Nitrogen 16, Creatinine 1.3, Estimat Glomerular Filtration Rate > 60, Glucose Level 131H, Calcium Level 9.1 Current Medications Medications (Trade) Dose Ordered Sig/Felipe Route PRN Reason Start Time Stop Time Status Last Admin Dose Admin Amlodipine Besylate (Norvasc) 5 mg DAILY ORAL 12/23/17 09:00 01/18/18 08:59 12/24/17 09:18 Apixaban (Eliquis) 5 mg BID ORAL 12/28/17 09:00 01/27/18 08:59 Apixaban (Eliquis) 10 mg BID ORAL 12/22/17 18:00 12/27/17 18:01 12/24/17 09:17 Aspirin (Ecotrin) 81 mg DAILY ORAL 12/23/17 09:00 01/18/18 08:59 12/24/17 09:18 Atorvastatin Calcium (Lipitor) 20 mg BEDTIME ORAL 12/22/17 21:00 01/18/18 20:59 12/23/17 20:27 Magnesium Oxide (Mag-Ox 400mg) 400 mg BID ORAL 12/22/17 18:00 01/18/18 12:44 12/24/17 09:18 Morphine Sulfate (Morphine Sulfate) 2 mg Q4H PRN IVP Moderate Pain (Pain Scale 4-6) 12/22/17 18:00 12/28/17 17:59 Morphine Sulfate (Morphine Sulfate) 4 mg Q4H PRN IM Severe Pain (Pain Scale 7-10) 12/22/17 18:00 12/28/17 17:59 12/24/17 09:18 Pregabalin (Lyrica) 50 mg Q12HR ORAL 12/22/17 21:00 01/18/18 21:44 12/24/17 09:18 Tamsulosin HCl (Flomax) 0.4 mg QHS ORAL 12/22/17 21:00 01/18/18 20:59 12/23/17 20:27 Temazepam (Restoril) 15 mg HSPRN PRN ORAL Insomnia 12/22/17 18:00 12/25/17 17:59 Susy Morse MD Dec 24, 2017 17:23
[2017-12-24 19:41] VITALS: BP 113/73
[2017-12-24] MEDS: Atorvastatin 20mg tab ORAL SCH (20:38)
[2017-12-24] MEDS: Tamsulosin 0.4mg cap ORAL SCH (20:39)
--- NOTE | 2017-12-24 22:43 | General Progress Note ---
Assessment/Plan Assessment/Plan anxiety d/o depressive d/o reluctant to take meds provided ro/st Subjective Date patient seen: Dec 24, 2017 Neurologic/Psychiatric: Reports: anxiety, depressed, emotional problems Allergies: Coded Allergies: No Known Allergies (Unverified , 10/27/12) Objective Last 24 Hour Vital Signs Date Time Temp Pulse Resp B/P (MAP) Pulse Ox O2 Delivery O2 Flow Rate FiO2 12/24/17 19:53 96 Room Air 12/24/17 19:41 97.3 75 20 113/73 96 Room Air 97.3 12/24/17 16:00 97.9 66 18 113/68 95 97.9 12/24/17 12:00 97.7 73 18 125/72 96 97.7 12/24/17 09:18 76 126/68 12/24/17 09:00 73 63 84 12/24/17 08:00 97.5 76 19 126/68 96 97.5 12/24/17 04:45 97.3 65 20 98/55 92 Room Air 97.3 12/24/17 04:45 92 Room Air 12/24/17 00:27 97.3 74 20 116/71 93 Room Air 97.3 Intake and Output 12/23/17 12/24/17 19:00 07:00 Intake Total 480 ml Balance 480 ml Intake Oral 480 ml # Bowel Movements 1 Laboratory Tests 12/24/17 06:05: White Blood Count 6.3, Red Blood Count 4.41L, Hemoglobin 14.5, Hematocrit 41.8L , Mean Corpuscular Volume 95, Mean Corpuscular Hemoglobin 32.9H, Mean Corpuscular Hemoglobin Concent 34.7, Red Cell Distribution Width 12.5, Platelet Count 195, Mean Platelet Volume 8.9, Neutrophils (%) (Auto) 55.8, Lymphocytes (% ) (Auto) 32.0, Monocytes (%) (Auto) 9.9, Eosinophils (%) (Auto) 1.4, Basophils ( %) (Auto) 0.9, Sodium Level 143, Potassium Level 4.6, Chloride Level 108H, Carbon Dioxide Level 29, Anion Gap 6, Blood Urea Nitrogen 16, Creatinine 1.3, Estimat Glomerular Filtration Rate > 60, Glucose Level 131H, Calcium Level 9.1 Height (Feet): 5 Height (Inches): 8.00 Weight (Pounds): 209 Angelika Ley M.D. Dec 24, 2017 22:43
[2017-12-25 00:15] VITALS: BP 133/75
[2017-12-25 04:00] VITALS: BP 112/70
[2017-12-25] MEDS: Aspirin EC 81mg tab ORAL SCH (08:17)
[2017-12-25] MEDS: Eliquis 2.5mg tablet ORAL SCH (08:17)
[2017-12-25] MEDS: Magnesium Oxide 400mg tab ORAL SCH (08:18)
[2017-12-25] MEDS: Lyrica 50mg cap ORAL SCH (08:18)
[2017-12-25 08:33] VITALS: BP 114/66
[2017-12-25 12:28] VITALS: BP 105/62
--- NOTE | 2017-12-25 13:21 | General Progress Note ---
Assessment/Plan Assessment/Plan #. Deep Venous Thrombosis of Left Leg (Final results pending) --> Start Apixaban for 3 months #. Atypical chest pain. --> S/P Chest CT: No evidence of acute pulmonary embolus or other acute thoracic pathology. --> Possible left ventricular muscular hypertrophy. COPD changes --> Minimal right upper lobe scarring and bibasilar atelectasis #. COPD. #. Hypertension. --> BP improved. #. Renal cell carcinoma, s/p nephrectomy. Subjective Date patient seen: Dec 24, 2017 Constitutional: Denies: no symptoms, chills, diaphoresis, fever, malaise, weakness, other HEENT: Denies: no symptoms, eye pain, blurred vision, tearing, double vision, ear pain, ear discharge, nose pain, nose congestion, throat pain, throat swelling, mouth pain, mouth swelling, other Cardiovascular: Denies: no symptoms, chest pain, edema, irregular heart rate, lightheadedness, palpitations, syncope, other Respiratory: Denies: no symptoms, cough, orthopnea, shortness of breath, SOB with excertion, SOB at rest, sputum, stridor, wheezing, other Gastrointestinal/Abdominal: Denies: no symptoms, abdomen distended, abdominal pain, black stools, tarry stools, blood in stool, constipated, diarrhea, difficulty swallowing, nausea, poor appetite, poor fluid intake, rectal bleeding , vomiting, other Genitourinary: Denies: no symptoms, burning, discharge, frequency, flank pain, hematuria, incontinence, pain, urgency, other Neurologic/Psychiatric: Denies: no symptoms, anxiety, depressed, emotional problems, headache, numbness, paresthesia, pre-existing deficit, seizure, tingling, tremors, weakness, other Allergies: Coded Allergies: No Known Allergies (Unverified , 10/27/12) Subjective On pain control. Afebrile. No chills Objective Last 24 Hour Vital Signs Date Time Temp Pulse Resp B/P (MAP) Pulse Ox O2 Delivery O2 Flow Rate FiO2 12/25/17 12:29 78 83 92 12/25/17 12:28 97.8 78 20 105/62 94 97.8 12/25/17 08:33 97.3 73 20 114/66 94 97.3 12/25/17 08:18 72 112/70 12/25/17 04:00 97.8 72 20 112/70 96 Room Air 97.8 12/25/17 00:15 97.2 68 20 133/75 95 Room Air 97.2 12/25/17 00:15 95 Room Air 12/24/17 19:53 96 Room Air 12/24/17 19:41 97.3 75 20 113/73 96 Room Air 97.3 12/24/17 16:00 97.9 66 18 113/68 95 97.9 Intake and Output 12/24/17 12/25/17 19:00 07:00 Intake Total 480 ml Balance 480 ml Intake Oral 480 ml # Voids 3 3 # Bowel Movements 1 Height (Feet): 5 Height (Inches): 8.00 Weight (Pounds): 209 General Appearance: no apparent distress Cardiovascular: normal rate Respiratory/Chest: lungs clear Abdomen: soft Ted Vieira MD Dec 25, 2017 13:21
--- NOTE | 2017-12-25 21:43 | General Progress Note ---
Assessment/Plan Status: stable Assessment/Plan anxiety d/o depressive d/o reluctant to take meds provided ro/st Subjective Date patient seen: Dec 25, 2017 Neurologic/Psychiatric: Reports: anxiety, depressed, emotional problems Allergies: Coded Allergies: No Known Allergies (Unverified , 10/27/12) Objective Last 24 Hour Vital Signs Date Time Temp Pulse Resp B/P (MAP) Pulse Ox O2 Delivery O2 Flow Rate FiO2 12/25/17 12:29 78 83 92 12/25/17 12:28 97.8 78 20 105/62 94 97.8 12/25/17 08:33 97.3 73 20 114/66 94 97.3 12/25/17 08:18 72 112/70 12/25/17 04:00 97.8 72 20 112/70 96 Room Air 97.8 12/25/17 00:15 97.2 68 20 133/75 95 Room Air 97.2 12/25/17 00:15 95 Room Air Intake and Output 12/24/17 12/25/17 19:00 07:00 Intake Total 480 ml Balance 480 ml Intake Oral 480 ml # Voids 3 3 # Bowel Movements 1 Height (Feet): 5 Height (Inches): 8.00 Weight (Pounds): 209 Angelika Ley M.D. Dec 25, 2017 21:43
--- NOTE | 2017-12-25 22:37 | Pulmonology Progress Note ---
Assessment/Plan Problems: (1) ACS (acute coronary syndrome) (2) Dizziness (3) COPD (chronic obstructive pulmonary disease) (4) HTN (hypertension) Assessment/Plan CT chest negative for PE, showed COPD MRI brain reviewed Hem evaluation appreciated, Apixiban started symptomatic treatment pt/ot dc planning for today Subjective ROS Limited/Unobtainable: No Constitutional: Reports: no symptoms HEENT: Repors: no symptoms Respiratory: Reports: no symptoms Allergies: Coded Allergies: No Known Allergies (Unverified , 10/27/12) Objective Last 24 Hour Vital Signs Date Time Temp Pulse Resp B/P (MAP) Pulse Ox O2 Delivery O2 Flow Rate FiO2 12/25/17 12:29 78 83 92 12/25/17 12:28 97.8 78 20 105/62 94 97.8 12/25/17 08:33 97.3 73 20 114/66 94 97.3 12/25/17 08:18 72 112/70 12/25/17 04:00 97.8 72 20 112/70 96 Room Air 97.8 12/25/17 00:15 97.2 68 20 133/75 95 Room Air 97.2 12/25/17 00:15 95 Room Air Intake and Output 12/24/17 12/25/17 19:00 07:00 Intake Total 480 ml Balance 480 ml Intake Oral 480 ml # Voids 3 3 # Bowel Movements 1 Objective General Appearance: WD/WN HEENT: normocephalic, atraumatic Respiratory/Chest: chest wall non-tender, lungs clear, normal breath sounds Cardiovascular: normal peripheral pulses, normal rate, regular rhythm Abdomen: normal bowel sounds, soft, non tender, no organomegaly Genitourinary: normal external genitalia Extremities: no clubbing Skin: no rash 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
--- NOTE | 2017-12-26 13:38 | Discharge Summary ---
Discharge Summary Hospital Course Date of Admission Dec 18, 2017 at 17:34 Date of Discharge Dec 25, 2017 at 12:45 Admitting Diagnosis sepsis HPI Nataly Jr Suzi is a 72 year old male who was admitted on Dec 18, 2017 at 17: 34 for Sepsis Hospital Course [id number] Discharge Discharge Disposition Patient was discharged to Home (01) Adali Ortiz NP Dec 26, 2017 13:38
--- NOTE | 2017-12-26 23:36 | General Progress Note ---
Assessment/Plan Assessment/Plan #. Deep Venous Thrombosis of Left Leg --> Start Apixaban for 3 months --> Improving #. Atypical chest pain. --> S/P Chest CT: No evidence of acute pulmonary embolus or other acute thoracic pathology. --> Possible left ventricular muscular hypertrophy. COPD changes --> Minimal right upper lobe scarring and bibasilar atelectasis --> Improved #. COPD. #. Hypertension. --> BP improved. #. Renal cell carcinoma, s/p nephrectomy. Subjective Date patient seen: Dec 25, 2017 Constitutional: Denies: no symptoms, chills, diaphoresis, fever, malaise, weakness, other HEENT: Denies: no symptoms, eye pain, blurred vision, tearing, double vision, ear pain, ear discharge, nose pain, nose congestion, throat pain, throat swelling, mouth pain, mouth swelling, other Cardiovascular: Denies: no symptoms, chest pain, edema, irregular heart rate, lightheadedness, palpitations, syncope, other Respiratory: Denies: no symptoms, cough, orthopnea, shortness of breath, SOB with excertion, SOB at rest, sputum, stridor, wheezing, other Gastrointestinal/Abdominal: Denies: no symptoms, abdomen distended, abdominal pain, black stools, tarry stools, blood in stool, constipated, diarrhea, difficulty swallowing, nausea, poor appetite, poor fluid intake, rectal bleeding , vomiting, other Genitourinary: Denies: no symptoms, burning, discharge, frequency, flank pain, hematuria, incontinence, pain, urgency, other Neurologic/Psychiatric: Denies: no symptoms, anxiety, depressed, emotional problems, headache, numbness, paresthesia, pre-existing deficit, seizure, tingling, tremors, weakness, other Allergies: Coded Allergies: No Known Allergies (Unverified , 10/27/12) Subjective NAD. No fever or chills. On anticoag. Objective Intake and Output 12/25/17 12/26/17 19:00 07:00 Intake Total 360 ml Balance 360 ml Intake Oral 360 ml Height (Feet): 5 Height (Inches): 8.00 Weight (Pounds): 209 General Appearance: no apparent distress Respiratory/Chest: decreased breath sounds Abdomen: soft Ted Vieira MD Dec 26, 2017 23:36
--- NOTE | 2017-12-27 03:45 | Discharge Summary 2 SIG ---
DATE OF ADMISSION: 12/18/2017 DATE OF DISCHARGE: 12/25/2017 ATTENDING PHYSICIAN: Jaylen Lara M.D. CONSULTANTS: 1. Susy Morse M.D. 2. Angelika Ley M.D. 3. Ted Vieira M.D. 4. Dariusz Yin M.D. 5. Mahendra Bowser M.D. BRIEF HOSPITAL COURSE: The patient is a 72-year-old gentleman with medical history significant for renal cell carcinoma, status post nephrectomy, history of hypertension, COPD, dyslipidemia, BPH, hep C positive, and cataract, presented initially to the office then after he was seen complained of chest pain. He was then advised to present to ED. On evaluation at ED, blood work did not show any leukocytosis. Troponin was negative. He had an EKG done that showed sinus bradycardia with no ectopy, no PVCs. He was given aspirin. He had a chest x-ray that showed no acute disease. Head CT with no acute intracranial bleed or mass effect. There was mild age-related volume loss noted. He was then admitted to telemetry for cardiac evaluation. Cardiac troponins were negative. The patient also had dizziness and lightheadedness. Neurological examination showed new onset of gait ataxia, possibly from positional vertigo and weakness in the left lower extremity. He was given Ecotrin and statins and was given meclizine p.r.n. He had a venous duplex of lower extremity that showed a recanalized thrombus on the left leg. 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 Chest CTA was negative for acute PE or any other acute thoracic pathology. He had an echocardiogram done that showed ejection fraction of 65% to 70% with no evidence of pericardial or pleural effusion. No aortic regurgitation, no mitral regurgitation, no tricuspid regurgitation. He had episodes of agitation and was reluctant to take medications. MRI of the brain was done and was negative for acute intracranial bleed, mass effect, or infarct. He was given PT and OT and was eventually discharged home with home health. FINAL DIAGNOSES: 1. DVT of the left lower extremity, present on admission. 2. Renal cell carcinoma, status post nephrectomy. 3. Ataxia. 4. COPD. 5. Hypercholesterolemia. 6. Atypical chest pain suggestive of musculoskeletal pain. 7. Hypertrophic heart disease. 8. Muscular spasms of chest wall. 9. Anxiety disorder. 10. Depressive disorder. 11. Dizziness/vertigo. DISPOSITION: The patient was discharged home with home health. DISCHARGE MEDICATIONS: Refer to medication list. Continue with Eliquis 5 mg b.i.d. for three months DISCHARGE INSTRUCTIONS: Follow up with Dr. Lara in a week. Susy Morse M.D. I have been assigned to dictate discharge summary on this account and I was not involved in the patient's management. Adali Ortiz N.P. DR: JACOB JOB#: [id number] CC: KURT
[2017-12-28] MEDS ORDERED: Eliquis 2.5mg tablet ORAL SCH ×2 (09:00)
== END 2017-12-25 12:45 | disposition home or self-care (01) | DRG 313 ==
LOC: EMR 17:22 → 2E 17:34 → EDBEDREQ 19:51 → 2E 22:07 → 4W 12-22 12:15
DX: R07.89 Other chest pain (principal); I25.10 Atherosclerotic heart disease of native coronary artery without angina pectoris; I69.354 Hemiplegia and hemiparesis following cerebral infarction affecting left non-dominant side; I42.2 Other hypertrophic cardiomyopathy; R00.1 Bradycardia, unspecified; I82.592 Chronic embolism and thrombosis of other specified deep vein of left lower extremity; R07.81 Pleurodynia; M62.838 Other muscle spasm; J44.9 Chronic obstructive pulmonary disease, unspecified; I10 Essential (primary) hypertension; Z85.528 Personal history of other malignant neoplasm of kidney; Z90.5 Acquired absence of kidney; E78.5 Hyperlipidemia, unspecified; Z87.891 Personal history of nicotine dependence; B19.20 Unspecified viral hepatitis C without hepatic coma; N40.0 Benign prostatic hyperplasia without lower urinary tract symptoms; H81.10 Benign paroxysmal vertigo, unspecified ear; M17.0 Bilateral primary osteoarthritis of knee; F41.9 Anxiety disorder, unspecified; F32.9 Major depressive disorder, single episode, unspecified; M51.16 Intervertebral disc disorders with radiculopathy, lumbar region; Z88.6 Allergy status to analgesic agent; R20.2 Paresthesia of skin; R27.0 Ataxia, unspecified; I51.7 Cardiomegaly
CPT/HCPCS: 36415; 70450; 70551; 71045; 71275; 80048; 80053; 80061; 81003; 82962; 83735; 83880; 84100; 84484; 85025; 93005; 93306; 93971; 99285; J2405

== ENCOUNTER 2018-04-24 14:59 | Inpatient (IN) | payer MEDICARE, MEDICAID ==
[~2018-04-24] VITALS: Ht 172.7 cm; Wt 92.5 kg
[~2018-04-24 14:59] MED LIST changes: +ELIQUIS2.5 MG ORAL
[2018-04-24] MEDS ORDERED: Isovue-370 150ml vial INJ PRN (15:15)
[2018-04-24] MEDS ORDERED: Albuterol ud Inhalation HHN ONE (15:15)
[2018-04-24 15:23] VITALS: BP 136/77
[2018-04-24] MEDS ORDERED: Aspirin Baby 81mg ORAL ONE (15:30)
[2018-04-24] MEDS ORDERED: Solu-MEDROL 125mg Inj IVP ONE (15:30)
--- NOTE | 2018-04-24 15:52 | Emergency Room Report ---
History of Present Illness General Chief Complaint: Chest Pain Source: Patient Present Illness HPI Patient is a 72-year-old male who presented after increased the left-sided chest discomfort. Patient reports having increased pain radiating to his the left side of his arm as well as to his lower extremities. Patient had previous history of deep venous thrombosis and is currently on Apixaban. Patient was having prior imaging studies. He was noted to have worsened chest discomfort over the past 4 days. The patient been noticed to have some increased left lower extremity pain. Patient denies any fever. He reports having some increased difficulty with breathing. He had prior history of asthma. He reports taking albuterol inhaler. He reports having intermittent left-sided spasming. 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 Hx Dizziness: Yes - WHEN CHANGING FROM SITTING TO STANDING Hx Headaches: Yes - OCCASIONALLY, MORE AFTER FACIAL SWELLING Hx Weakness: Yes - generalized Review of Systems All Other Systems: negative except mentioned in HPI Physical Exam Vital Signs Date Time Temp Pulse Resp B/P (MAP) Pulse Ox O2 Delivery O2 Flow Rate FiO2 04/24/18 15:13 97.0 64 14 136/77 99 Room Air 97.0 Sp02 EP Interpretation: reviewed, normal General Appearance: normal inspection, well appearing, no apparent distress, alert, GCS 15 Head: atraumatic ENT: normal ENT inspection, hearing grossly normal, normal voice Neck: normal inspection, full range of motion, supple, no bony tend Respiratory: normal inspection, lungs clear, normal breath sounds, no respiratory distress, no retraction, no wheezing Cardiovascular #1: regular rate, rhythm, no edema Gastrointestinal: normal inspection, normal bowel sounds, non tender, soft, no guarding, no hernia Genitourinary: no CVA tenderness Musculoskeletal: normal inspection, back normal, normal range of motion Neurologic: normal inspection, alert, responsive, speech normal Psychiatric: normal inspection, judgement/insight normal, mood/affect normal Skin: normal inspection, normal color, no rash Medical Decision Making Diagnostic Impression: Primary Impression: Chest pain, atypical Additional Impressions: Renal cell carcinoma COPD exacerbation ER Course Patient was given breathing treatments. EKG interpreted by me showed normal sinus rhythm with a rate of [address] or T wave changes. Patient was given Solu-Medrol as well as aspirin. The patient was noted to have some improvement as difficulty breathing. The patient was given IV magnesium for some bronchospasm. Chest x-ray one view read by radiology showed no acute process. The laboratory testing was unremarkable. Troponin and d-dimer were both noted to be negative. I given the patient's advanced age patient be admitted to Dr. Lara for further management due to primary care physician. EKG Diagnostic Results Rate: normal Rhythm: NSR ST Segments: no acute changes Last Vital Signs Date Time Temp Pulse Resp B/P (MAP) Pulse Ox O2 Delivery O2 Flow Rate FiO2 04/24/18 15:13 97.0 64 14 136/77 99 Room Air 97.0 Status: unchanged Disposition: ADMITTED INPATIENT Condition: Serious Bry Lund MD Apr 24, 2018 15:52
[2018-04-24 16:01] LABS: BASOPHILS % (AUTO) 1.3 % (0.0-2.0); EOSINOPHILS % (AUTO) 1.3 % (0.0-3.0); HEMATOCRIT 42.8 % (42.0-52.0); HEMOGLOBIN 14.7 G/DL (14.2-18.0); LYMPHOCYTES % (AUTO) 31.5 % (20.0-45.0); MEAN CORPUSCULAR VOLUME 92 FL (80-99); MONOCYTES % (AUTO) 7.3 % (1.0-10.0); NEUTROPHILS % (AUTO) 58.7 % (45.0-75.0); PLATELET COUNT 185 K/UL (150-450); RED BLOOD COUNT 4.64 M/UL (4.70-6.10); RED CELL DISTRIBUTION WIDTH 11.9 % (11.6-14.8); WHITE BLOOD COUNT 7.4 K/UL (4.8-10.8)
[2018-04-24 16:14] LABS: INR 1.1 (0.9-1.1)
[2018-04-24 16:17] LABS: ANION GAP 7 mmol/L (5-15); BLOOD UREA NITROGEN 11 mg/dL (7-18); CALCIUM 9.3 MG/DL (8.5-10.1); CARBON DIOXIDE 27 MMOL/L (21-32); CHLORIDE 108 MMOL/L (98-107); CREATININE 1.2 MG/DL (0.55-1.30); SODIUM 142 MMOL/L (136-145)
--- NOTE | 2018-04-24 16:18 | Diagnostic Imaging Report ---
Indication: Shortness of breath Technique: One view of the chest Comparison: 12/18/2017 Findings: Lungs and pleural spaces are clear. Heart size is normal. No significant interim change Impression: No acute process
[2018-04-24 16:31] LABS: ALANINE AMINOTRANSFERASE 57 U/L (12-78); ALBUMIN 3.7 G/DL (3.4-5.0); ALKALINE PHOSPHATASE 70 U/L (46-116); ASPARTATE AMINO TRANSFERASE 25 U/L (15-37); BILIRUBIN,TOTAL 0.4 MG/DL (0.2-1.0); CKMB < 0.5 NG/ML (0.0-3.6); CREATINE KINASE 114 U/L (26-308)
[2018-04-24] MEDS ORDERED: LORazepam Inj 2mg/ml 1ml IV ONE (17:15)
[2018-04-24 18:00] VITALS: BP 146/80
[2018-04-24] MEDS ORDERED: Miralax 17gm pkt ORAL PRN (18:00)
[2018-04-24] MEDS ORDERED: Albuterol/Ipratropium 3ml neb HHN PRN (18:00)
[2018-04-24] MEDS ORDERED: Enalaprilat 2.5mg/2ml Inj IV PRN (18:00)
[2018-04-24] MEDS ORDERED: Nitroglycerin Subl 0.4mg tab SL PRN (18:00)
[2018-04-24] MEDS ORDERED: Morphine Sulfate 2mg/ml Inj IVP PRN (18:00)
[2018-04-24] MEDS ORDERED: dilTIAZem HCl 25mg/5ml Inj IV PRN (18:00)
[2018-04-24] MEDS ORDERED: XARELTO10 MG ORAL (18:26)
[2018-04-24] MEDS ORDERED: ROXICODONE30 M1 ORAL (18:26)
[2018-04-24] MEDS ORDERED: TIZANIDINE HCL4 MG ORAL (18:26)
[2018-04-24 20:00] VITALS: BP 133/75
[2018-04-24] MEDS: Ketorolac 30mg Inj IV PRN (20:21)
[2018-04-24] MEDS: Heparin 5000 units/ml inj SUBQ SCH (20:25)
[2018-04-25] VITALS: BP 137/82
[2018-04-25 04:00] VITALS: BP 135/77
[2018-04-25 06:39] LABS: HEMATOCRIT 42.4 % (42.0-52.0); HEMOGLOBIN 14.6 G/DL (14.2-18.0); MEAN CORPUSCULAR VOLUME 92 FL (80-99); PLATELET COUNT 204 K/UL (150-450); RED BLOOD COUNT 4.62 M/UL (4.70-6.10); RED CELL DISTRIBUTION WIDTH 11.5 % (11.6-14.8); WHITE BLOOD COUNT 11.5 K/UL (4.8-10.8)
[2018-04-25 07:10] LABS: CHOLESTEROL 152 MG/DL (< 200); HDL CHOLESTEROL 72 MG/DL (40-60); TRIGLYCERIDES 21 MG/DL (30-150)
[2018-04-25 07:11] LABS: INR 1.1 (0.9-1.1)
[2018-04-25 08:00] VITALS: BP 146/80
[2018-04-25] MEDS: Aspirin Baby 81mg ORAL SCH (08:38)
[2018-04-25] MEDS: Ketorolac 30mg Inj IV PRN (08:38)
[2018-04-25] MEDS: Heparin 5000 units/ml inj SUBQ SCH ×2 (08:43→20:32)
--- NOTE | 2018-04-25 10:58 | Consultation ---
History of Present Illness General Date patient seen: Apr 25, 2018 Chief Complaint: Chest Pain Present Illness HPI 72-year-old male with hx of CVA, borderline diabetes, CAD, Asthma, DVT on Apixiban presented to ER with CC of left-sided chest discomfort. Patient reports having increased pain radiating to his the left side of his arm as well as to his lower extremities. The patient been noticed to have some increased left lower extremity pain. Patient denies any fever. He reports having some increased difficulty with breathing. He reports taking albuterol inhaler. He is admitted to telemetry for further management Allergies: Coded Allergies: No Known Allergies (Unverified , 10/27/12) Medication History Scheduled Amlodipine Besylate* (Amlodipine Besylate*), 5 MG ORAL DAILY, (Reported) Cholecalciferol (Vitamin D3)* (Vitamin D*), 2,000 UNITS ORAL DAILY, (Reported) Rivaroxaban (Xarelto*), Unknown Dose ORAL DAILY, (Reported) Simvastatin (Zocor), 40 MG PO QHS, (Reported) Tamsulosin HCl (Flomax), 0.4 MG PO QHS, (Reported) Scheduled PRN Oxycodone Hcl* (Roxicodone*), 30 MG ORAL Q6H PRN for For Pain, (Reported) Tizanidine Hcl* (Zanaflex*), Unknown Dose ORAL THREE TIMES A DAY PRN for For Pain, (Reported) Discontinued Medications Acetaminophen* (Tylenol Extra Strength*), 500 MG ORAL Q6H Discontinued Reason: Pt stopped taking med Albuterol Sulfate (Ventolin Hfa), 1 PUFF INH EVERY 6 HOURS, (Reported) Discontinued Reason: Pt stopped taking med Apixaban (Eliquis), 5 MG ORAL BID Discontinued Reason: Pt stopped taking med Aspirin* (Aspir 81*), 81 MG ORAL DAILY, (Reported) Discontinued Reason: Pt stopped taking med Bacitracin Zinc/Polymyx B Sulf (Hm Double Antibiotic Ointment), 1 APPLIC TP BID Discontinued Reason: Pt stopped taking med Cephalexin* (Keflex*), 500 MG ORAL EVERY 12 HOURS Discontinued Reason: Pt stopped taking med Patient History Healthcare decision maker Resuscitation status Full Code Advanced Directive on File No Past Medical/Surgical History Past Medical/Surgical History: (1) Renal cell carcinoma (2) Deep vein thrombosis (DVT) of left lower extremity (3) Hepatitis C (4) BPH (benign prostatic hypertrophy) (5) HTN (hypertension) (6) COPD (chronic obstructive pulmonary disease) Review of Systems Respiratory: Reports: shortness of breath Cardiovascular: Reports: chest pain Physical Exam General Appearance: WD/WN Lines, tubes and drains: peripheral HEENT: normocephalic, atraumatic Neck: non-tender, normal alignment Respiratory/Chest: chest wall non-tender, lungs clear Cardiovascular/Chest: normal peripheral pulses, normal rate Abdomen: normal bowel sounds Genitourinary/Rectal: normal genital exam Extremities: normal range of motion Skin Exam: normal pigmentation Last 24 Hour Vital Signs Date Time Temp Pulse Resp B/P (MAP) Pulse Ox O2 Delivery O2 Flow Rate FiO2 04/25/18 09:00 Room Air 04/25/18 08:00 97.3 83 20 146/80 (102) 95 97.3 04/25/18 04:00 97.0 71 22 135/77 (96) 96 97.0 04/25/18 04:00 70 04/25/18 00:00 81 04/25/18 00:00 97.9 87 24 137/82 (100) 96 97.9 04/24/18 22:31 Room Air 04/24/18 21:00 Room Air 04/24/18 20:00 97.3 77 24 133/75 (94) 98 97.3 04/24/18 20:00 74 04/24/18 18:40 97.6 73 16 146/80 97 Room Air 97.6 04/24/18 18:00 97.6 73 16 146/80 97 Room Air 97.6 04/24/18 16:40 55 11 100 Room Air 04/24/18 16:30 55 18 96 Room Air 04/24/18 15:27 55 18 Room Air 04/24/18 15:23 64 14 Room Air 04/24/18 15:23 97.0 14 136/77 99 Room Air 97.0 04/24/18 15:13 97.0 64 14 136/77 99 Room Air 97.0 Intake and Output 04/24/18 04/25/18 19:00 07:00 Intake Total 100 ml Balance 100 ml Intake IV Total 100 ml # Voids 1 3 # Bowel Movements 1 Laboratory Tests Test 04/24/18 15:45 7/20/18 17:20 04/25/18 05:44 White Blood Count 7.4 K/UL (4.8-10.8) 11.5 K/UL (4.8-10.8) #H Red Blood Count 4.64 M/UL (4.70-6.10) L 4.62 M/UL (4.70-6.10) L Hemoglobin 14.7 G/DL (14.2-18.0) 14.6 G/DL (14.2-18.0) Hematocrit 42.8 % (42.0-52.0) 42.4 % (42.0-52.0) Mean Corpuscular Volume 92 FL (80-99) 92 FL (80-99) Mean Corpuscular Hemoglobin 31.7 PG (27.0-31.0) H 31.6 PG (27.0-31.0) H Mean Corpuscular Hemoglobin Concent 34.3 G/DL (32.0-36.0) 34.4 G/DL (32.0-36.0) Red Cell Distribution Width 11.9 % (11.6-14.8) 11.5 % (11.6-14.8) L Platelet Count 185 K/UL (150-450) 204 K/UL (150-450) Mean Platelet Volume 7.4 FL (6.5-10.1) 8.1 FL (6.5-10.1) Neutrophils (%) (Auto) 58.7 % (45.0-75.0) % (45.0-75.0) Lymphocytes (%) (Auto) 31.5 % (20.0-45.0) % (20.0-45.0) Monocytes (%) (Auto) 7.3 % (1.0-10.0) % (1.0-10.0) Eosinophils (%) (Auto) 1.3 % (0.0-3.0) % (0.0-3.0) Basophils (%) (Auto) 1.3 % (0.0-2.0) % (0.0-2.0) Prothrombin Time 11.4 SEC (9.30-11.50) 11.2 SEC (9.30-11.50) Prothromb Time International Ratio 1.1 (0.9-1.1) 1.1 (0.9-1.1) Activated Partial Thromboplast Time 33 SEC (23-33) 31 SEC (23-33) D-Dimer 0.19 mg/L FEU (0.00-0.49) Sodium Level 142 MMOL/L (136-145) Potassium Level 4.0 MMOL/L (3.5-5.1) Chloride Level 108 MMOL/L (98-107) H Carbon Dioxide Level 27 MMOL/L (21-32) Anion Gap 7 mmol/L (5-15) Blood Urea Nitrogen 11 mg/dL (7-18) Creatinine 1.2 MG/DL (0.55-1.30) Estimat Glomerular Filtration Rate > 60 mL/min (>60) Glucose Level 83 MG/DL (74-106) Calcium Level 9.3 MG/DL (8.5-10.1) Total Bilirubin 0.4 MG/DL (0.2-1.0) Aspartate Amino Transf (AST/SGOT) 25 U/L (15-37) Alanine Aminotransferase (ALT/SGPT) 57 U/L (12-78) Alkaline Phosphatase 70 U/L (46-116) Total Creatine Kinase 114 U/L (26-308) Creatine Kinase MB < 0.5 NG/ML (0.0-3.6) Creatine Kinase MB Relative Index 0.4 Troponin I 0.000 ng/mL (0.000-0.056) 0.000 ng/mL (0.000-0.056) Pro-B-Type Natriuretic Peptide 121 pg/mL (0-125) Total Protein 7.3 G/DL (6.4-8.2) Albumin 3.7 G/DL (3.4-5.0) Globulin 3.6 g/dL Albumin/Globulin Ratio 1.0 (1.0-2.7) Lipase 103 U/L (73-393) Urine Opiates Screen Negative (NEGATIVE) Urine Barbiturates Screen Negative (NEGATIVE) Phencyclidine (PCP) Screen Negative (NEGATIVE) Urine Amphetamines Screen Negative (NEGATIVE) Urine Benzodiazepines Screen Negative (NEGATIVE) Urine Cocaine Screen Negative (NEGATIVE) Urine Marijuana (THC) Screen Negative (NEGATIVE) Differential Total Cells Counted 100 Neutrophils % (Manual) 86 % (45-75) H Lymphocytes % (Manual) 13 % (20-45) L Monocytes % (Manual) 1 % (1-10) Eosinophils % (Manual) 0 % (0-3) Basophils % (Manual) 0 % (0-2) Band Neutrophils 0 % (0-8) Platelet Estimate Adequate Platelet Morphology Normal Red Blood Cell Morphology Normal C-Reactive Protein, Quantitative < 0.4 mg/dL (0.00-0.90) Triglycerides Level 21 MG/DL (30-150) L Cholesterol Level 152 MG/DL (< 200) LDL Cholesterol 79 mg/dL (<100) HDL Cholesterol 72 MG/DL (40-60) H Cholesterol/HDL Ratio 2.1 (3.3-4.4) L Thyroid Stimulating Hormone (TSH) 0.385 uiU/mL (0.358-3.740) Height (Feet): 5 Height (Inches): 8.00 Weight (Pounds): 199 Medications Current Medications Medications (Trade) Dose Ordered Sig/Felipe Route PRN Reason Start Time Stop Time Status Last Admin Dose Admin Acetaminophen (Tylenol) 650 mg Q4H PRN ORAL FEVER (temp>100.5F) 04/24/18 18:00 05/24/18 17:59 04/24/18 23:40 Albuterol/ Ipratropium (Albuterol/ Ipratropium) 3 ml Q4H PRN HHN Shortness of Breath 04/24/18 18:00 04/29/18 17:59 Aspirin (ASA) 162 mg DAILY ORAL 04/25/18 09:00 05/25/18 08:59 04/25/18 08:38 Diltiazem HCl (Cardizem) 10 mg EVERY HOUR PRN IV heart rate more than 120, 04/24/18 18:00 05/24/18 17:59 Enalaprilat (Vasotec) 2.5 mg EVERY 6 HOURS PRN IV sbp more than 160 04/24/18 18:00 05/24/18 17:59 Heparin Sodium (Porcine) (Heparin 5000 units/ml) 5,000 units EVERY 12 HOURS SUBQ 04/24/18 21:00 05/24/18 20:59 04/25/18 08:43 Iopamidol (Isovue-370 150ml) 150 ml NOW PRN INJ Radiology Procedure 04/24/18 15:15 04/26/18 15:14 Ketorolac Tromethamine (Toradol 30mg) 30 mg Q6H PRN IV moderate pain ( 4-6) 04/24/18 18:00 04/29/18 17:59 04/25/18 08:38 Morphine Sulfate (Morphine Sulfate) 2 mg Q4H PRN IVP severe Pain (Pain Scale 7-10) 04/24/18 18:00 05/01/18 17:59 Nitroglycerin (Ntg) 0.4 mg Q5M PRN SL Prn Chest Pain 04/24/18 18:00 05/24/18 17:59 Ondansetron HCl (Zofran) 4 mg Q6H PRN IVP Nausea & Vomiting 04/24/18 18:00 05/24/18 17:59 Polyethylene Glycol (Miralax) 17 gm DAILYPRN PRN ORAL Constipation 04/24/18 18:00 05/24/18 17:59 Temazepam (Restoril) 15 mg HSPRN PRN ORAL Insomnia 04/24/18 18:00 05/01/18 17:59 Assessment/Plan Problem List: (1) Costochondritis ICD Codes: M94.0 - Chondrocostal junction syndrome [Tietze] SNOMED: 53953989 (2) Chest pain of uncertain etiology ICD Codes: R07.89 - Other chest pain SNOMED: 50426919 (3) Deep vein thrombosis (DVT) of left lower extremity ICD Codes: I82.402 - Acute embolism and thrombosis of unspecified deep veins of left lower extremity SNOMED: 465496325 (4) Hepatitis C ICD Codes: B19.20 - Unspecified viral hepatitis C without hepatic coma SNOMED: 16998027 (5) COPD (chronic obstructive pulmonary disease) ICD Codes: J44.9 - Chronic obstructive pulmonary disease, unspecified SNOMED: 89118364 (6) Renal cell carcinoma ICD Codes: C64.9 - Malignant neoplasm of unspecified kidney, except renal pelvis SNOMED: 59139843, 106744634 Assessment/Plan serial ekg, troponin, echo cardiology to see venous doppler of legs respiratory treatment symptomatic treatment. Susy Morse MD Apr 25, 2018 10:58
[2018-04-25 12:00] VITALS: BP 146/81
[2018-04-25] MEDS ORDERED: Morphine Sulfate 4mg/ml Inj IVP PRN (12:15)
--- NOTE | 2018-04-25 12:20 | History & Physical ---
History and Physical History & Physicial Dictated for Int Med-Dr Lara no. [id number]. Leonardo Palencia MD Apr 25, 2018 12:20
[2018-04-25 16:00] VITALS: BP 149/86
--- NOTE | 2018-04-25 16:44 | Consultation ---
DATE OF CONSULTATION: 04/25/2018 CONSULTING PHYSICIAN: Clemente Hurtado M.D. REFERRING PHYSICIAN: Leonardo Palencia M.D. CHIEF COMPLAINT: Abdominal pain. HISTORY OF PRESENT ILLNESS: This is a very pleasant 72-year-old male. He was in his normal state of health about a week ago when he had a pizza and the next morning, he woke up with severe abdominal pain, nausea, but could not vomit. Since then, he has been having symptoms and then he subsequently started having chest pain that makes him and came to the hospital. PAST MEDICAL HISTORY: Significant for: 1. High blood pressure. 2. Hypercholesterolemia. 3. History of arthritis. 4. COPD. 5. Borderline diabetes. 6. Prior history of hepatitis C. ALLERGIES: No known drug allergies. MEDICATIONS: Please see medication reconciliation list. SOCIAL HISTORY: The patient denies any tobacco usage. He drinks socially. No IV drug abuse. PAST SURGICAL HISTORY: Partial nephrectomy. He also had right knee surgery. He also had appendectomy. FAMILY HISTORY: Noncontributory. REVIEW OF SYSTEMS: A 10-point review of systems was performed and pertinent positives in HPI. PHYSICAL EXAMINATION: GENERAL: This is a well-developed male, lying uncomfortably in bed. VITAL SIGNS: Temperature is 97, pulse 64, respirations 21, blood pressure is 146/81. HEENT: Normocephalic and atraumatic. Sclerae anicteric. NECK: Supple. No evidence of obvious lymphadenopathy. CARDIOVASCULAR: Regular rhythm. Plus S1 and S2. No obvious murmur. LUNGS: Clear to auscultation bilaterally. ABDOMEN: Positive bowel sounds. Soft. Minimal tenderness to palpation in epigastric and right upper quadrant. No rebound. No guarding. No peritoneal sign. EXTREMITIES: No cyanosis, no clubbing, no edema. LABORATORY DATA: White count is 11.5, hemoglobin 14, hematocrit 42, platelet of 204,000. Chem-7, sodium 142, potassium 4.0, BUN is 11, creatinine is 1.2. Liver function grossly normal. Lipase is normal at 103. ASSESSMENT AND PLAN: This is a 72-year-old male with abdominal pain/chest pain. Differential diagnoses will be gallbladder disease, gallstones, gastritis, or cardiac in origin. Plan to get abdominal ultrasound. Repeat hepatitis panel given prior history of hepatitis C. If this is persistently positive, he will need treatment as an outpatient. Repeat laboratories for tomorrow including CBC and CMP. I want to thank, Dr. Palencia, for this kind referral. Clementechristopher Hurtado M.D. DR: Gerhard JOB#: [id number] CC: Leonardo Palencia M.D.; Fax#: [phone]
--- NOTE | 2018-04-25 17:06 | Consultation ---
History of Present Illness General Date patient seen: Apr 25, 2018 Time patient seen: 16:57 Chief Complaint: Chest Pain Present Illness HPI Pt from home came in due to left side CP that radiates to his bilateral legs x 4 days. Pt feels slight dizziness. Pt has Nausea with no vomiting. Vitals BP144/ 80, P73, R18, 97%sP02 room air, Temp 97.9F oral. Pt has been having chest pain, was given ASA 81mg PO in ER. Patient has a hx of CVA, DM, asthma, DVT on apixiban. Initial CXR clear, troponin negative x2 Allergies: Coded Allergies: No Known Allergies (Unverified , 10/27/12) Medication History Scheduled Amlodipine Besylate* (Amlodipine Besylate*), 5 MG ORAL DAILY, (Reported) Cholecalciferol (Vitamin D3)* (Vitamin D*), 2,000 UNITS ORAL DAILY, (Reported) Rivaroxaban (Xarelto*), Unknown Dose ORAL DAILY, (Reported) Simvastatin (Zocor), 40 MG PO QHS, (Reported) Tamsulosin HCl (Flomax), 0.4 MG PO QHS, (Reported) Scheduled PRN Oxycodone Hcl* (Roxicodone*), 30 MG ORAL Q6H PRN for For Pain, (Reported) Tizanidine Hcl* (Zanaflex*), Unknown Dose ORAL THREE TIMES A DAY PRN for For Pain, (Reported) Discontinued Medications Acetaminophen* (Tylenol Extra Strength*), 500 MG ORAL Q6H Discontinued Reason: Pt stopped taking med Albuterol Sulfate (Ventolin Hfa), 1 PUFF INH EVERY 6 HOURS, (Reported) Discontinued Reason: Pt stopped taking med Apixaban (Eliquis), 5 MG ORAL BID Discontinued Reason: Pt stopped taking med Aspirin* (Aspir 81*), 81 MG ORAL DAILY, (Reported) Discontinued Reason: Pt stopped taking med Bacitracin Zinc/Polymyx B Sulf (Hm Double Antibiotic Ointment), 1 APPLIC TP BID Discontinued Reason: Pt stopped taking med Cephalexin* (Keflex*), 500 MG ORAL EVERY 12 HOURS Discontinued Reason: Pt stopped taking med Patient History Healthcare decision maker Resuscitation status Full Code Advanced Directive on File No Review of Systems Constitutional: Reports: no symptoms Eye: Reports: no symptoms ENT: Reports: no symptoms Respiratory: Reports: no symptoms Cardiovascular: Reports: chest pain Gastrointestinal: Reports: no symptoms Genitourinary: Reports: no symptoms Musculoskeletal: Reports: no symptoms Skin: Reports: no symptoms Psychiatric: Reports: no symptoms Neurological: Reports: no symptoms Endocrine: Reports: no symptoms Physical Exam General Appearance: no apparent distress Lines, tubes and drains: peripheral HEENT: normocephalic Neck: non-tender Respiratory/Chest: chest wall non-tender Cardiovascular/Chest: normal peripheral pulses Abdomen: normal bowel sounds Extremities: normal range of motion Skin Exam: normal pigmentation 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: 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-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 grossly normal Last 24 Hour Vital Signs Date Time Temp Pulse Resp B/P (MAP) Pulse Ox O2 Delivery O2 Flow Rate FiO2 04/25/18 12:00 97.0 65 21 146/81 (102) 95 97.0 04/25/18 11:51 73 04/25/18 09:00 Room Air 04/25/18 08:00 97.3 83 20 146/80 (102) 95 97.3 04/25/18 07:58 75 04/25/18 04:00 97.0 71 22 135/77 (96) 96 97.0 04/25/18 04:00 70 04/25/18 00:00 81 04/25/18 00:00 97.9 87 24 137/82 (100) 96 97.9 04/24/18 22:31 Room Air 04/24/18 21:00 Room Air 04/24/18 20:00 97.3 77 24 133/75 (94) 98 97.3 04/24/18 20:00 74 04/24/18 18:40 97.6 73 16 146/80 97 Room Air 97.6 04/24/18 18:00 97.6 73 16 146/80 97 Room Air 97.6 Intake and Output 04/24/18 04/25/18 19:00 07:00 Intake Total 100 ml Balance 100 ml Intake IV Total 100 ml # Voids 1 3 # Bowel Movements 1 Laboratory Tests Test 04/24/18 17:20 04/25/18 05:44 Urine Opiates Screen Negative (NEGATIVE) Urine Barbiturates Screen Negative (NEGATIVE) Phencyclidine (PCP) Screen Negative (NEGATIVE) Urine Amphetamines Screen Negative (NEGATIVE) Urine Benzodiazepines Screen Negative (NEGATIVE) Urine Cocaine Screen Negative (NEGATIVE) Urine Marijuana (THC) Screen Negative (NEGATIVE) White Blood Count 11.5 K/UL (4.8-10.8) #H Red Blood Count 4.62 M/UL (4.70-6.10) L Hemoglobin 14.6 G/DL (14.2-18.0) Hematocrit 42.4 % (42.0-52.0) Mean Corpuscular Volume 92 FL (80-99) Mean Corpuscular Hemoglobin 31.6 PG (27.0-31.0) H Mean Corpuscular Hemoglobin Concent 34.4 G/DL (32.0-36.0) Red Cell Distribution Width 11.5 % (11.6-14.8) L Platelet Count 204 K/UL (150-450) Mean Platelet Volume 8.1 FL (6.5-10.1) Neutrophils (%) (Auto) % (45.0-75.0) Lymphocytes (%) (Auto) % (20.0-45.0) Monocytes (%) (Auto) % (1.0-10.0) Eosinophils (%) (Auto) % (0.0-3.0) Basophils (%) (Auto) % (0.0-2.0) Differential Total Cells Counted 100 Neutrophils % (Manual) 86 % (45-75) H Lymphocytes % (Manual) 13 % (20-45) L Monocytes % (Manual) 1 % (1-10) Eosinophils % (Manual) 0 % (0-3) Basophils % (Manual) 0 % (0-2) Band Neutrophils 0 % (0-8) Platelet Estimate Adequate Platelet Morphology Normal Red Blood Cell Morphology Normal Prothrombin Time 11.2 SEC (9.30-11.50) Prothromb Time International Ratio 1.1 (0.9-1.1) Activated Partial Thromboplast Time 31 SEC (23-33) Troponin I 0.000 ng/mL (0.000-0.056) C-Reactive Protein, Quantitative < 0.4 mg/dL (0.00-0.90) Triglycerides Level 21 MG/DL (30-150) L Cholesterol Level 152 MG/DL (< 200) LDL Cholesterol 79 mg/dL (<100) HDL Cholesterol 72 MG/DL (40-60) H Cholesterol/HDL Ratio 2.1 (3.3-4.4) L Thyroid Stimulating Hormone (TSH) 0.385 uiU/mL (0.358-3.740) Height (Feet): 5 Height (Inches): 8.00 Weight (Pounds): 199 Medications Current Medications Medications (Trade) Dose Ordered Sig/Felipe Route PRN Reason Start Time Stop Time Status Last Admin Dose Admin Acetaminophen (Tylenol) 650 mg Q4H PRN ORAL FEVER (temp>100.5F) 04/24/18 18:00 05/24/18 17:59 04/24/18 23:40 Albuterol/ Ipratropium (Albuterol/ Ipratropium) 3 ml Q4H PRN HHN Shortness of Breath 04/24/18 18:00 04/29/18 17:59 Aspirin (ASA) 162 mg DAILY ORAL 04/25/18 09:00 05/25/18 08:59 04/25/18 08:38 Diltiazem HCl (Cardizem) 10 mg EVERY HOUR PRN IV heart rate more than 120, 04/24/18 18:00 05/24/18 17:59 Enalaprilat (Vasotec) 2.5 mg EVERY 6 HOURS PRN IV sbp more than 160 04/24/18 18:00 05/24/18 17:59 Heparin Sodium (Porcine) (Heparin 5000 units/ml) 5,000 units EVERY 12 HOURS SUBQ 04/24/18 21:00 05/24/18 20:59 04/25/18 08:43 Iopamidol (Isovue-370 150ml) 150 ml NOW PRN INJ Radiology Procedure 04/24/18 15:15 04/26/18 15:14 Morphine Sulfate (Morphine Sulfate) 2 mg Q4H PRN IVP Moderate Pain (Pain Scale 4-6) 04/25/18 14:00 05/01/18 17:59 Morphine Sulfate (Morphine Sulfate) 4 mg Q4H PRN IVP Severe Pain (Pain Scale 7-10) 04/25/18 12:15 05/02/18 12:14 Nitroglycerin (Ntg) 0.4 mg Q5M PRN SL Prn Chest Pain 04/24/18 18:00 05/24/18 17:59 Ondansetron HCl (Zofran) 4 mg Q6H PRN IVP Nausea & Vomiting 04/24/18 18:00 8/19/18 17:59 Polyethylene Glycol (Miralax) 17 gm DAILYPRN PRN ORAL Constipation 04/24/18 18:00 05/24/18 17:59 04/25/18 16:22 Temazepam (Restoril) 15 mg HSPRN PRN ORAL Insomnia 04/24/18 18:00 05/01/18 17:59 Assessment/Plan Status: stable Assessment/Plan Assessment Chest pain DVT BPH HTN Asthma/COPD Hepatitis C Plan: Serial EKG/Troponin Aspirin Statin Nitro prn chest pain No indication for cardiac cath or heparin at this time Echocardiogram to evaluate LV wall motion Stress test prior to discharge due to multiple risk factors Talib Lagos M.D. Apr 25, 2018 17:06
--- NOTE | 2018-04-25 17:15 | History and Physical Report ---
DATE OF ADMISSION: 04/24/2018 CHIEF COMPLAINT: The patient is a 72-year-old male, presents with chief complaint of chest pain. HISTORY OF PRESENT ILLNESS: History of present illness began on 04/18/2018. The patient states he ate a pizza. The patient began to experience epigastric pain. The patient awoke early Friday morning, 04/19/2018 with left-sided chest pain. Chest pain radiates to the left shoulder and left hip. The patient states the pain has been pretty much constant since last Friday. The patient presented to [facility]. The patient is admitted with chest pain, rule out acute coronary syndrome. PAST MEDICAL HISTORY: Significant for: 1. Hypertension. 2. Hypertensive heart disease. 3. History of renal cell cancer, status post nephrectomy. 4. Chronic obstructive pulmonary disease. 5. Hypercholesterolemia. 6. Benign prostatic hypertrophy. 7. Hepatitis C. 8. Anxiety. 9. Depression. PAST SURGICAL HISTORY: Significant for: 1. Appendectomy. 2. Nephrectomy. 3. Right knee surgery. CURRENT MEDICATIONS: 1. Amlodipine 5 mg p.o. daily. 2. Vitamin D3 2000 units orally daily. 3. Oxycodone 30 mg p.o. q.6 h. p.r.n. 4. Xarelto 10 mg p.o. daily. 5. Simvastatin 40 mg p.o. nightly. 6. Flomax 0.4 mg p.o. daily. 7. Zanaflex 4 mg one tablet p.o. three times daily. ALLERGIES: No known drug allergies. SOCIAL HISTORY: The patient has quit smoking. The patient denies alcohol use. The patient is single. The patient is disabled. REVIEW OF SYSTEMS: CONSTITUTIONAL: The patient denies weight loss or weight gain. The patient denies fevers or chills. HEENT: The patient denies ear or throat pain. The patient denies headache. CARDIOVASCULAR: The patient complains of chest pain as above. The patient denies palpitations. CHEST: The patient denies wheeze or shortness of breath. ABDOMINAL: The patient denies nausea, vomiting, diarrhea, or constipation. The patient does complain of epigastric pain as above. NEUROMUSCULAR: The patient denies seizures or generalized weakness. GENITOURINARY: The patient denies dysuria or increased frequency of urination. PHYSICAL EXAMINATION: VITAL SIGNS: Temperature 97.9 degrees, respirations 24, pulse 87, and blood pressure 137/82. GENERAL: The patient is well-developed, well-nourished, male, in no apparent distress. HEENT: Eyes, pupils equal and responsive to light and accommodation. Extraocular movements are intact. NECK: Supple without lymphadenopathy. CHEST: Lungs are clear to auscultation bilaterally without wheezes or rales. CARDIOVASCULAR: Regular rate. S1 and S2 are normal without murmurs, rubs, or gallops. ABDOMEN: Soft, nontender, and nondistended. Positive bowel sounds. No evidence of hepatosplenomegaly, rebound, or guarding noted. EXTREMITIES: Negative for clubbing, cyanosis, or edema. RECTAL: Refused. GENITAL: Refused. NEUROLOGIC: Cranial nerves II through XII are grossly intact without focal deficits. Motor strength is 5/5 bilaterally intact. Deep tendon reflexes are 2+ plantar. LABORATORY STUDIES: WBC 7.4, hemoglobin 14.7, hematocrit 42.8, and platelets 185,000. Sodium 142, potassium 4.0, chloride 108, CO2 27, BUN 11, creatinine 1.2, and glucose 83. Troponin 0.0. An EKG demonstrated normal sinus rhythm with no acute ST or T-waves noted. ASSESSMENT: This is a 72-year-old male with: 1. Chest pain. 2. Epigastric pain. 3. Hypertension. 4. Chronic obstructive pulmonary disease. 5. Hypertensive heart disease. 6. Hypertension. 7. Hypercholesterolemia. 8. History of renal cell cancer. 9. Hepatitis C. 10. Benign prostatic hypertrophy. 11. History of deep venous thrombosis of the left lower extremity. 12. Anxiety. 13. Depression. TREATMENT: 1. Chest pain. A Cardiology consultation has been obtained with Dr. Lagos. The patient had previous workup in December 2017 at [facility]. We will follow recommendations of Cardiology. Serial troponin levels will be performed. 2. Epigastric pain. Gastroenterology consultation has been obtained with Dr. Clemente Hurtado. The patient has been started empirically on Protonix. 3. Hypertension. Continue amlodipine as above. 4. Chronic obstructive pulmonary disease. The patient is a previous smoker. A Pulmonary consultation has been obtained with Dr. Susy Morse. 5. Hypertrophic heart disease. As above, a Cardiology consultation has been obtained with Dr. Filsoof. 6. Hypertension. Continue amlodipine as above. 7. Hypercholesterolemia. Continue Lipitor as above. 8. History of renal cell cancer, status post nephrectomy. 9. Hepatitis C. 10. Benign prostatic hypertrophy. 11. History of deep venous thrombosis of the left lower extremity. A venous duplex Doppler is pending. 12. Benign prostatic hypertrophy. Continue Flomax as above. 13. Anxiety/depression. Leonardo Palencia M.D. DR: John JOB#: [id number] CC:
[2018-04-25] MEDS: Morphine Sulfate 2mg/ml Inj IVP PRN (18:22)
[2018-04-25 19:58] VITALS: BP 136/78
[2018-04-25] MEDS: Atorvastatin 20mg tab ORAL SCH (20:32)
[2018-04-26 00:02] VITALS: BP 138/73
[2018-04-26 04:00] VITALS: BP 120/69
[2018-04-26 07:34] LABS: BASOPHILS % (AUTO) 0.3 % (0.0-2.0); EOSINOPHILS % (AUTO) 0.4 % (0.0-3.0); HEMATOCRIT 43.1 % (42.0-52.0); HEMOGLOBIN 14.6 G/DL (14.2-18.0); LYMPHOCYTES % (AUTO) 20.4 % (20.0-45.0); MEAN CORPUSCULAR VOLUME 93 FL (80-99); MONOCYTES % (AUTO) 6.8 % (1.0-10.0); NEUTROPHILS % (AUTO) 72.1 % (45.0-75.0); PLATELET COUNT 192 K/UL (150-450); RED BLOOD COUNT 4.65 M/UL (4.70-6.10); RED CELL DISTRIBUTION WIDTH 12.4 % (11.6-14.8); WHITE BLOOD COUNT 12.3 K/UL (4.8-10.8)
[2018-04-26 07:41] LABS: ANION GAP 6 mmol/L (5-15); BLOOD UREA NITROGEN 19 mg/dL (7-18); CALCIUM 9.2 MG/DL (8.5-10.1); CARBON DIOXIDE 30 MMOL/L (21-32); CHLORIDE 108 MMOL/L (98-107); CREATININE 1.3 MG/DL (0.55-1.30); POTASSIUM 4.2 MMOL/L (3.5-5.1); SODIUM 144 MMOL/L (136-145)
[2018-04-26 07:54] LABS: AMYLASE 64 U/L (25-115)
[2018-04-26 08:00] VITALS: BP 129/74
[2018-04-26] MEDS: Heparin 5000 units/ml inj SUBQ SCH ×2 (08:49→20:23)
[2018-04-26] MEDS: Aspirin Baby 81mg ORAL SCH (08:50)
--- NOTE | 2018-04-26 09:08 | General Progress Note ---
Assessment/Plan Problem List: (1) Hepatitis C ICD Codes: B19.20 - Unspecified viral hepatitis C without hepatic coma SNOMED: 04339538 (2) BPH (benign prostatic hypertrophy) ICD Codes: N40.0 - Enlarged prostate without lower urinary tract symptoms SNOMED: 115710786, 771717144 (3) COPD (chronic obstructive pulmonary disease) ICD Codes: J44.9 - Chronic obstructive pulmonary disease, unspecified SNOMED: 33502303 (4) Abdominal pain ICD Codes: R10.9 - Unspecified abdominal pain SNOMED: 37155410 Assessment/Plan elevated WBC, epigastric pain, ? cholecystitis fu abd us repeat labs fu hepatitis panel Subjective ROS Limited/Unobtainable: Yes Allergies: Coded Allergies: No Known Allergies (Unverified , 10/27/12) Objective Last 24 Hour Vital Signs Date Time Temp Pulse Resp B/P (MAP) Pulse Ox O2 Delivery O2 Flow Rate FiO2 04/26/18 08:50 62 129/94 04/26/18 04:00 66 04/26/18 04:00 97.6 65 18 120/69 (86) 95 97.6 04/26/18 00:02 97.5 71 16 138/73 (94) 96 97.5 04/26/18 00:00 69 04/25/18 21:00 Room Air 04/25/18 20:00 68 04/25/18 19:58 97.0 64 16 136/78 (97) 97 97.0 04/25/18 16:00 97.6 72 20 149/86 (107) 95 97.6 04/25/18 15:42 68 04/25/18 12:00 97.0 65 21 146/81 (102) 95 97.0 04/25/18 11:51 73 Intake and Output 04/25/18 04/26/18 19:00 07:00 Intake Total 500 ml 120 ml Output Total 700 ml Balance -200 ml 120 ml Intake Oral 500 ml 120 ml Output Urine Total 700 ml # Voids 3 Laboratory Tests 04/26/18 06:30: Troponin I 0.000 04/26/18 07:00: White Blood Count 12.3H, Red Blood Count 4.65L, Hemoglobin 14.6, Hematocrit 43.1 , Mean Corpuscular Volume 93, Mean Corpuscular Hemoglobin 31.5H, Mean Corpuscular Hemoglobin Concent 33.9, Red Cell Distribution Width 12.4, Platelet Count 192, Mean Platelet Volume 7.9, Neutrophils (%) (Auto) 72.1, Lymphocytes (% ) (Auto) 20.4, Monocytes (%) (Auto) 6.8, Eosinophils (%) (Auto) 0.4, Basophils ( %) (Auto) 0.3, Sodium Level 144, Potassium Level 4.2, Chloride Level 108H, Carbon Dioxide Level 30, Anion Gap 6, Blood Urea Nitrogen 19H, Creatinine 1.3, Estimat Glomerular Filtration Rate > 60, Glucose Level 154H, Calcium Level 9.2, Amylase Level 64, Lipase 148, Hepatitis A IgM Antibody [Pending], Hepatitis B Surface Antigen [Pending], Hepatitis B Core IgM Antibody [Pending], Hepatitis C Antibody [Pending] Height (Feet): 5 Height (Inches): 8.00 Weight (Pounds): 199 General Appearance: alert EENT: normal ENT inspection Neck: supple Cardiovascular: normal rate Respiratory/Chest: decreased breath sounds Abdomen: soft, hypoactive bowel sounds, tender Extremities: non-tender Clemente Hurtado MD Apr 26, 2018 09:08
[2018-04-26 12:00] VITALS: BP 141/81
[2018-04-26] MEDS ORDERED: Lexiscan 0.4mg/5ml syringe IV PRN (13:30)
--- NOTE | 2018-04-26 13:40 | Internal Med Progress Note ---
Subjective Date of Service: Apr 26, 2018 Physician Name Palencia,Leonardo Attending Physician Jaylen Lara MD Current Medications Medications (Trade) Dose Ordered Sig/Felipe Route PRN Reason Start Time Stop Time Status Last Admin Dose Admin Acetaminophen (Tylenol) 650 mg Q4H PRN ORAL FEVER (temp>100.5F) 04/24/18 18:00 05/24/18 17:59 04/24/18 23:40 Albuterol/ Ipratropium (Albuterol/ Ipratropium) 3 ml Q4H PRN HHN Shortness of Breath 04/24/18 18:00 04/29/18 17:59 Amlodipine Besylate (Norvasc) 5 mg DAILY ORAL 04/26/18 09:00 05/26/18 08:59 04/26/18 08:50 Aspirin (ASA) 162 mg DAILY ORAL 04/25/18 09:00 05/25/18 08:59 04/26/18 08:50 Atorvastatin Calcium (Lipitor) 20 mg BEDTIME ORAL 04/25/18 21:00 05/25/18 20:59 04/25/18 20:32 Diltiazem HCl (Cardizem) 10 mg EVERY HOUR PRN IV heart rate more than 120, 04/24/18 18:00 05/24/18 17:59 Enalaprilat (Vasotec) 2.5 mg EVERY 6 HOURS PRN IV sbp more than 160 04/24/18 18:00 05/24/18 17:59 Heparin Sodium (Porcine) (Heparin 5000 units/ml) 5,000 units EVERY 12 HOURS SUBQ 04/24/18 21:00 05/24/18 20:59 04/26/18 08:49 Iopamidol (Isovue-370 150ml) 150 ml NOW PRN INJ Radiology Procedure 04/24/18 15:15 04/26/18 15:14 Morphine Sulfate (Morphine Sulfate) 2 mg Q4H PRN IVP Moderate Pain (Pain Scale 4-6) 04/25/18 14:00 05/01/18 17:59 04/25/18 18:22 Morphine Sulfate (Morphine Sulfate) 4 mg Q4H PRN IVP Severe Pain (Pain Scale 7-10) 04/25/18 12:15 05/02/18 12:14 Nitroglycerin (Ntg) 0.4 mg Q5M PRN SL Prn Chest Pain 04/24/18 18:00 05/24/18 17:59 Ondansetron HCl (Zofran) 4 mg Q6H PRN IVP Nausea & Vomiting 04/24/18 18:00 05/24/18 17:59 Polyethylene Glycol (Miralax) 17 gm DAILYPRN PRN ORAL Constipation 04/24/18 18:00 05/24/18 17:59 04/25/18 16:22 Tamsulosin HCl (Flomax) 0.4 mg BEDTIME ORAL 04/26/18 21:00 05/26/18 20:59 Temazepam (Restoril) 15 mg HSPRN PRN ORAL Insomnia 04/24/18 18:00 05/01/18 17:59 Allergies: Coded Allergies: No Known Allergies (Unverified , 10/27/12) ROS Limited/Unobtainable: No Constitutional: Reports: no symptoms HEENT: Reports: no symptoms Cardiovascular: Reports: chest pain Respiratory: Reports: no symptoms Gastrointestinal/Abdominal: Reports: abdominal pain Genitourinary: Reports: no symptoms Neurologic/Psychiatric: Reports: no symptoms Subjective 72 YO M admitted with chest pain. Await Cardiolite stress test. Await abdominal ultrasound . Cover for Int med-Dr Lara Objective Last Vital Signs Date Time Temp Pulse Resp B/P (MAP) Pulse Ox O2 Delivery O2 Flow Rate FiO2 04/26/18 09:00 Room Air 04/26/18 08:50 62 129/94 04/26/18 08:00 97.4 18 95 97.4 General Appearance: WD/WN, no apparent distress, alert EENT: PERRL/EOMI, normal ENT inspection Neck: non-tender, normal alignment, supple, normal inspection Cardiovascular: normal peripheral pulses, normal rate, regular rhythm, no gallop/murmur, no JVD Respiratory/Chest: chest wall non-tender, lungs clear, normal breath sounds, no respiratory distress, no accessory muscle use Abdomen: normal bowel sounds, non tender, soft, no organomegaly, no mass Extremities: normal range of motion, non-tender Edema: trace edema 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, no motor/sensory deficits Skin: normal pigmentation Laboratory Tests Test 04/26/18 06:30 04/26/18 07:00 Troponin I 0.000 ng/mL (0.000-0.056) White Blood Count 12.3 K/UL (4.8-10.8) H Red Blood Count 4.65 M/UL (4.70-6.10) L Hemoglobin 14.6 G/DL (14.2-18.0) Hematocrit 43.1 % (42.0-52.0) Mean Corpuscular Volume 93 FL (80-99) Mean Corpuscular Hemoglobin 31.5 PG (27.0-31.0) H Mean Corpuscular Hemoglobin Concent 33.9 G/DL (32.0-36.0) Red Cell Distribution Width 12.4 % (11.6-14.8) Platelet Count 192 K/UL (150-450) Mean Platelet Volume 7.9 FL (6.5-10.1) Neutrophils (%) (Auto) 72.1 % (45.0-75.0) Lymphocytes (%) (Auto) 20.4 % (20.0-45.0) Monocytes (%) (Auto) 6.8 % (1.0-10.0) Eosinophils (%) (Auto) 0.4 % (0.0-3.0) Basophils (%) (Auto) 0.3 % (0.0-2.0) Sodium Level 144 MMOL/L (136-145) Potassium Level 4.2 MMOL/L (3.5-5.1) Chloride Level 108 MMOL/L (98-107) H Carbon Dioxide Level 30 MMOL/L (21-32) Anion Gap 6 mmol/L (5-15) Blood Urea Nitrogen 19 mg/dL (7-18) H Creatinine 1.3 MG/DL (0.55-1.30) Estimat Glomerular Filtration Rate > 60 mL/min (>60) Glucose Level 154 MG/DL (74-106) H Calcium Level 9.2 MG/DL (8.5-10.1) Amylase Level 64 U/L (25-115) Lipase 148 U/L (73-393) Hepatitis A IgM Antibody Pending Hepatitis B Surface Antigen Pending Hepatitis B Core IgM Antibody Pending Hepatitis C Antibody Pending Intake and Output 04/25/18 04/26/18 19:00 07:00 Intake Total 500 ml 120 ml Output Total 700 ml Balance -200 ml 120 ml Intake Oral 500 ml 120 ml Output Urine Total 700 ml # Voids 3 Assessment/Plan Problem List: (1) Hypertensive hypertrophic cardiomyopathy, without heart failure Assessment & Plan: await echocardiogram (2) Epigastric abdominal pain (3) Chest pain Assessment & Plan: Await cardiolite stress test. See cardiology note. (4) HTN (hypertension) Assessment & Plan: continue norvasc (5) COPD (chronic obstructive pulmonary disease) (6) Hypercholesteremia Assessment & Plan: Continue lipitor (7) Renal cell carcinoma (8) Hepatitis C (9) BPH (benign prostatic hypertrophy) (10) DVT of leg (deep venous thrombosis) Assessment & Plan: On eliquis Status: not improved Leonardo Palencia MD Apr 26, 2018 13:40
--- NOTE | 2018-04-26 13:51 | Cardiology Progress Note ---
Assessment/Plan Assessment/Plan Assessment Chest pain DVT BPH HTN Asthma/COPD Hepatitis C Plan: Check ESR/CRP Start empiric treatment for pericarditis/costochondritis, colchicine daily, do not give steroids Serial EKG/Troponin Aspirin Statin Nitro prn chest pain No indication for cardiac cath or heparin at this time Echocardiogram to evaluate LV wall motion Stress test prior to discharge due to multiple risk factors Subjective Cardiovascular: Reports: chest pain Respiratory: Reports: no symptoms Gastrointestinal/Abdominal: Reports: no symptoms Genitourinary: Reports: no symptoms Subjective No acute events, vitals stable, troponin negative Awaiting echocardiogram Chest pain reproducible. Objective Last 24 Hour Vital Signs Date Time Temp Pulse Resp B/P (MAP) Pulse Ox O2 Delivery O2 Flow Rate FiO2 04/26/18 09:00 Room Air 04/26/18 08:50 62 129/94 04/26/18 08:00 57 04/26/18 08:00 97.4 62 18 129/74 (92) 95 97.4 04/26/18 04:00 66 04/26/18 04:00 97.6 65 18 120/69 (86) 95 97.6 04/26/18 00:02 97.5 71 16 138/73 (94) 96 97.5 04/26/18 00:00 69 04/25/18 21:00 Room Air 04/25/18 20:00 68 04/25/18 19:58 97.0 64 16 136/78 (97) 97 97.0 04/25/18 16:00 97.6 72 20 149/86 (107) 95 97.6 04/25/18 15:42 68 General Appearance: no apparent distress EENT: PERRL/EOMI Neck: non-tender Rhythm: NSR Cardiovascular: normal peripheral pulses Respiratory/Chest: lungs clear Abdomen: normal bowel sounds, non tender Extremities: normal range of motion 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 Intake and Output 04/25/18 04/26/18 19:00 07:00 Intake Total 500 ml 120 ml Output Total 700 ml Balance -200 ml 120 ml Intake Oral 500 ml 120 ml Output Urine Total 700 ml # Voids 3 Laboratory Tests Test 04/26/18 06:30 04/26/18 07:00 Troponin I 0.000 ng/mL (0.000-0.056) White Blood Count 12.3 K/UL (4.8-10.8) H Red Blood Count 4.65 M/UL (4.70-6.10) L Hemoglobin 14.6 G/DL (14.2-18.0) Hematocrit 43.1 % (42.0-52.0) Mean Corpuscular Volume 93 FL (80-99) Mean Corpuscular Hemoglobin 31.5 PG (27.0-31.0) H Mean Corpuscular Hemoglobin Concent 33.9 G/DL (32.0-36.0) Red Cell Distribution Width 12.4 % (11.6-14.8) Platelet Count 192 K/UL (150-450) Mean Platelet Volume 7.9 FL (6.5-10.1) Neutrophils (%) (Auto) 72.1 % (45.0-75.0) Lymphocytes (%) (Auto) 20.4 % (20.0-45.0) Monocytes (%) (Auto) 6.8 % (1.0-10.0) Eosinophils (%) (Auto) 0.4 % (0.0-3.0) Basophils (%) (Auto) 0.3 % (0.0-2.0) Sodium Level 144 MMOL/L (136-145) Potassium Level 4.2 MMOL/L (3.5-5.1) Chloride Level 108 MMOL/L (98-107) H Carbon Dioxide Level 30 MMOL/L (21-32) Anion Gap 6 mmol/L (5-15) Blood Urea Nitrogen 19 mg/dL (7-18) H Creatinine 1.3 MG/DL (0.55-1.30) Estimat Glomerular Filtration Rate > 60 mL/min (>60) Glucose Level 154 MG/DL (74-106) H Calcium Level 9.2 MG/DL (8.5-10.1) Amylase Level 64 U/L (25-115) Lipase 148 U/L (73-393) Hepatitis A IgM Antibody Pending Hepatitis B Surface Antigen Pending Hepatitis B Core IgM Antibody Pending Hepatitis C Antibody Pending Talib Lagos M.D. Apr 26, 2018 13:51
[2018-04-26 16:00] VITALS: BP 127/75
[2018-04-26 20:00] VITALS: BP 124/65
[2018-04-26] MEDS: Tamsulosin 0.4mg cap ORAL SCH (20:23)
[2018-04-26] MEDS: Atorvastatin 20mg tab ORAL SCH (20:23)
[2018-04-26] MEDS: Morphine Sulfate 2mg/ml Inj IVP PRN (20:24)
[2018-04-27] VITALS: BP 135/85
[2018-04-27 04:00] VITALS: BP 128/72
[2018-04-27 07:26] LABS: ALANINE AMINOTRANSFERASE 57 U/L (12-78); ALBUMIN 3.5 G/DL (3.4-5.0); ALKALINE PHOSPHATASE 71 U/L (46-116); ANION GAP 5 mmol/L (5-15); ASPARTATE AMINO TRANSFERASE 22 U/L (15-37); BILIRUBIN,TOTAL 0.3 MG/DL (0.2-1.0); BLOOD UREA NITROGEN 14 mg/dL (7-18); CALCIUM 9.2 MG/DL (8.5-10.1); CARBON DIOXIDE 31 MMOL/L (21-32); CHLORIDE 107 MMOL/L (98-107); CREATININE 1.2 MG/DL (0.55-1.30); POTASSIUM 4.4 MMOL/L (3.5-5.1); SODIUM 143 MMOL/L (136-145)
[2018-04-27 07:30] LABS: BASOPHILS % (AUTO) 0.9 % (0.0-2.0); HEMATOCRIT 43.3 % (42.0-52.0); HEMOGLOBIN 14.5 G/DL (14.2-18.0); MEAN CORPUSCULAR VOLUME 94 FL (80-99); MONOCYTES % (AUTO) 5.3 % (1.0-10.0); NEUTROPHILS % (AUTO) 57.8 % (45.0-75.0); PLATELET COUNT 205 K/UL (150-450); RED CELL DISTRIBUTION WIDTH 12.8 % (11.6-14.8); WHITE BLOOD COUNT 7.5 K/UL (4.8-10.8)
[2018-04-27 08:00] VITALS: BP 134/73
[2018-04-27] MEDS: Aspirin Baby 81mg ORAL SCH (08:50)
[2018-04-27] MEDS: Heparin 5000 units/ml inj SUBQ SCH ×2 (08:52→21:00)
--- NOTE | 2018-04-27 10:35 | Diagnostic Imaging Report ---
Indication: Abdominal pain Technique: US ABD Complete Comparison: CT of the abdomen 03/09/2014 Findings: Pancreas is poorly evaluated due to overlying bowel gas. The imaged portions of the pancreatic head are grossly unremarkable. Liver contour appears smooth. Liver is normal in size. Question mildly increased hepatic echogenicity. No focal hepatic mass lesion is appreciated. Correlate is patent with normal direction of flow. No gallbladder stones or sludge identified. Gallbladder wall within normal limits for thickness. No pericholecystic fluid. Sonographic Hayes sign was reported as negative. No intrahepatic or extra hepatic biliary duct dilatation. Common bile duct measures approximately 2.4 mm. Kidneys demonstrate normal echogenicity bilaterally. The left kidney is smaller than the right, likely related to known partial left nephrectomy. No hydronephrosis or sonographically appreciable renal stones. Spleen is normal in size. No ascites. Imaged portions of the abdominal aorta are normal in caliber. IMPRESSION: No sonographic evidence of acute intra-abdominal pathology. * No cholelithiasis/gallbladder sludge identified. No sonographic evidence to suggest acute cholecystitis. * Evidence of partial left nephrectomy. No definite left-sided renal mass. If there is concern for residual or recurrent disease, consider contrast-enhanced CT or MRI for more sensitive evaluation.
--- NOTE | 2018-04-27 10:48 | GI Progress Note ---
Assessment/Plan Problems: (1) Epigastric abdominal pain ICD Codes: R10.13 - Epigastric pain SNOMED: 25734156 (2) Abdominal pain ICD Codes: R10.9 - Unspecified abdominal pain SNOMED: 50334480 (3) Chest pain of uncertain etiology ICD Codes: R07.89 - Other chest pain SNOMED: 94883493 (4) Hepatitis C ICD Codes: B19.20 - Unspecified viral hepatitis C without hepatic coma SNOMED: 02764929 (5) Abdominal pain ICD Codes: R10.9 - Unspecified abdominal pain SNOMED: 71904695 Status: unchanged Status Narrative Discussed with Dr. Hurtado. Assessment/Plan abdominal U/S reviewed >> No sonographic evidence of acute intra-abdominal pathology. stress test today EGD scheduled for tomorrow. - NPO @ [facility]. hepatitis panel ppi fu labs outpatient colonoscopy The patient was seen and examined at bedside and all new and available data was reviewed in the patients chart. I agree with the above findings, impression and plan. (Patient seen earlier today. Signature stamp does not reflect patient encounter time.). - Clemente Hurtado MD Subjective Gastrointestinal/Abdominal: Reports: no symptoms Objective Last 24 Hour Vital Signs Date Time Temp Pulse Resp B/P (MAP) Pulse Ox O2 Delivery O2 Flow Rate FiO2 04/27/18 09:00 Room Air 04/27/18 08:50 65 134/73 04/27/18 08:00 97.6 65 20 134/73 (93) 95 97.6 04/27/18 08:00 64 04/27/18 04:00 64 04/27/18 04:00 97.5 64 20 128/72 (90) 95 97.5 04/27/18 00:00 68 04/27/18 00:00 97.1 62 20 135/85 (102) 97 97.1 04/26/18 20:05 Room Air 04/26/18 20:00 77 04/26/18 20:00 97.1 76 20 124/65 (84) 95 97.1 04/26/18 16:00 60 04/26/18 16:00 96.7 65 18 127/75 (92) 95 96.7 04/26/18 12:00 97.0 60 18 141/81 (101) 95 97.0 04/26/18 12:00 59 Intake and Output 04/26/18 04/27/18 19:00 07:00 Intake Total 480 ml Output Total 100 ml Balance 380 ml Intake Oral 480 ml Output Urine Total 100 ml # Voids 1 3 Laboratory Tests Test 04/27/18 06:05 White Blood Count 7.5 K/UL (4.8-10.8) Red Blood Count 4.60 M/UL (4.70-6.10) L Hemoglobin 14.5 G/DL (14.2-18.0) Hematocrit 43.3 % (42.0-52.0) Mean Corpuscular Volume 94 FL (80-99) Mean Corpuscular Hemoglobin 31.5 PG (27.0-31.0) H Mean Corpuscular Hemoglobin Concent 33.5 G/DL (32.0-36.0) Red Cell Distribution Width 12.8 % (11.6-14.8) Platelet Count 205 K/UL (150-450) Mean Platelet Volume 8.7 FL (6.5-10.1) Neutrophils (%) (Auto) 57.8 % (45.0-75.0) Lymphocytes (%) (Auto) 35.0 % (20.0-45.0) Monocytes (%) (Auto) 5.3 % (1.0-10.0) Eosinophils (%) (Auto) 1.0 % (0.0-3.0) Basophils (%) (Auto) 0.9 % (0.0-2.0) Sodium Level 143 MMOL/L (136-145) Potassium Level 4.4 MMOL/L (3.5-5.1) Chloride Level 107 MMOL/L (98-107) Carbon Dioxide Level 31 MMOL/L (21-32) Anion Gap 5 mmol/L (5-15) Blood Urea Nitrogen 14 mg/dL (7-18) Creatinine 1.2 MG/DL (0.55-1.30) Estimat Glomerular Filtration Rate > 60 mL/min (>60) Glucose Level 144 MG/DL (74-106) H Calcium Level 9.2 MG/DL (8.5-10.1) Total Bilirubin 0.3 MG/DL (0.2-1.0) Aspartate Amino Transf (AST/SGOT) 22 U/L (15-37) Alanine Aminotransferase (ALT/SGPT) 57 U/L (12-78) Alkaline Phosphatase 71 U/L (46-116) Troponin I 0.000 ng/mL (0.000-0.056) Total Protein 6.9 G/DL (6.4-8.2) Albumin 3.5 G/DL (3.4-5.0) Globulin 3.4 g/dL Albumin/Globulin Ratio 1.0 (1.0-2.7) Height (Feet): 5 Height (Inches): 8.00 Weight (Pounds): 199 General Appearance: WD/WN, no apparent distress, alert Cardiovascular: normal rate Respiratory/Chest: normal breath sounds, no respiratory distress Abdominal Exam: normal bowel sounds, non tender, soft Extremities: normal range of motion, non-tender Glen Shook NP Apr 27, 2018 10:48
--- NOTE | 2018-04-27 10:49 | Internal Med Progress Note ---
Subjective Date of Service: Apr 27, 2018 Physician Name Leonardo Palencia Attending Physician Jaylen Lara MD Current Medications Medications (Trade) Dose Ordered Sig/Felipe Route PRN Reason Start Time Stop Time Status Last Admin Dose Admin Acetaminophen (Tylenol) 650 mg Q4H PRN ORAL FEVER (temp>100.5F) 04/24/18 18:00 05/24/18 17:59 04/24/18 23:40 Albuterol/ Ipratropium (Albuterol/ Ipratropium) 3 ml Q4H PRN HHN Shortness of Breath 04/24/18 18:00 04/29/18 17:59 Amlodipine Besylate (Norvasc) 5 mg DAILY ORAL 04/26/18 09:00 05/26/18 08:59 04/26/18 08:50 Aspirin (ASA) 162 mg DAILY ORAL 04/25/18 09:00 05/25/18 08:59 04/27/18 08:50 Atorvastatin Calcium (Lipitor) 20 mg BEDTIME ORAL 04/25/18 21:00 05/25/18 20:59 04/26/18 20:23 Colchicine (Colchicine) 0.6 mg DAILY ORAL 04/27/18 09:00 05/27/18 08:59 04/27/18 08:50 Diltiazem HCl (Cardizem) 10 mg EVERY HOUR PRN IV heart rate more than 120, 04/24/18 18:00 05/24/18 17:59 Enalaprilat (Vasotec) 2.5 mg EVERY 6 HOURS PRN IV sbp more than 160 04/24/18 18:00 05/24/18 17:59 Heparin Sodium (Porcine) (Heparin 5000 units/ml) 5,000 units EVERY 12 HOURS SUBQ 04/24/18 21:00 05/24/18 20:59 04/27/18 08:52 Morphine Sulfate (Morphine Sulfate) 2 mg Q4H PRN IVP Moderate Pain (Pain Scale 4-6) 04/25/18 14:00 05/01/18 17:59 04/26/18 20:24 Morphine Sulfate (Morphine Sulfate) 4 mg Q4H PRN IVP Severe Pain (Pain Scale 7-10) 04/25/18 12:15 05/02/18 12:14 Nitroglycerin (Ntg) 0.4 mg Q5M PRN SL Prn Chest Pain 04/24/18 18:00 05/24/18 17:59 Ondansetron HCl (Zofran) 4 mg Q6H PRN IVP Nausea & Vomiting 04/24/18 18:00 05/24/18 17:59 Polyethylene Glycol (Miralax) 17 gm DAILYPRN PRN ORAL Constipation 04/24/18 18:00 05/24/18 17:59 04/25/18 16:22 Regadenoson (Lexiscan) 0.4 mg ONCE PRN IV STRESS TEST 04/26/18 13:30 05/26/18 13:29 Tamsulosin HCl (Flomax) 0.4 mg BEDTIME ORAL 04/26/18 21:00 05/26/18 20:59 04/26/18 20:23 Temazepam (Restoril) 15 mg HSPRN PRN ORAL Insomnia 04/24/18 18:00 05/01/18 17:59 Allergies: Coded Allergies: No Known Allergies (Unverified , 10/27/12) ROS Limited/Unobtainable: No Constitutional: Reports: no symptoms HEENT: Reports: no symptoms Cardiovascular: Reports: chest pain Respiratory: Reports: no symptoms Gastrointestinal/Abdominal: Reports: no symptoms Genitourinary: Reports: no symptoms Neurologic/Psychiatric: Reports: no symptoms Subjective 72 YO M admitted with chest pain. Await Cardiolite stress test. Cover for Int isak-Dr Lara Objective Last Vital Signs Date Time Temp Pulse Resp B/P (MAP) Pulse Ox O2 Delivery O2 Flow Rate FiO2 04/27/18 09:00 Room Air 04/27/18 08:50 65 134/73 04/27/18 08:00 97.6 20 95 97.6 Laboratory Tests Test 04/27/18 06:05 White Blood Count 7.5 K/UL (4.8-10.8) Red Blood Count 4.60 M/UL (4.70-6.10) L Hemoglobin 14.5 G/DL (14.2-18.0) Hematocrit 43.3 % (42.0-52.0) Mean Corpuscular Volume 94 FL (80-99) Mean Corpuscular Hemoglobin 31.5 PG (27.0-31.0) H Mean Corpuscular Hemoglobin Concent 33.5 G/DL (32.0-36.0) Red Cell Distribution Width 12.8 % (11.6-14.8) Platelet Count 205 K/UL (150-450) Mean Platelet Volume 8.7 FL (6.5-10.1) Neutrophils (%) (Auto) 57.8 % (45.0-75.0) Lymphocytes (%) (Auto) 35.0 % (20.0-45.0) Monocytes (%) (Auto) 5.3 % (1.0-10.0) Eosinophils (%) (Auto) 1.0 % (0.0-3.0) Basophils (%) (Auto) 0.9 % (0.0-2.0) Sodium Level 143 MMOL/L (136-145) Potassium Level 4.4 MMOL/L (3.5-5.1) Chloride Level 107 MMOL/L (98-107) Carbon Dioxide Level 31 MMOL/L (21-32) Anion Gap 5 mmol/L (5-15) Blood Urea Nitrogen 14 mg/dL (7-18) Creatinine 1.2 MG/DL (0.55-1.30) Estimat Glomerular Filtration Rate > 60 mL/min (>60) Glucose Level 144 MG/DL (74-106) H Calcium Level 9.2 MG/DL (8.5-10.1) Total Bilirubin 0.3 MG/DL (0.2-1.0) Aspartate Amino Transf (AST/SGOT) 22 U/L (15-37) Alanine Aminotransferase (ALT/SGPT) 57 U/L (12-78) Alkaline Phosphatase 71 U/L (46-116) Troponin I 0.000 ng/mL (0.000-0.056) Total Protein 6.9 G/DL (6.4-8.2) Albumin 3.5 G/DL (3.4-5.0) Globulin 3.4 g/dL Albumin/Globulin Ratio 1.0 (1.0-2.7) Intake and Output 04/26/18 04/27/18 19:00 07:00 Intake Total 480 ml Output Total 100 ml Balance 380 ml Intake Oral 480 ml Output Urine Total 100 ml # Voids 1 3 Objective General Appearance: WD/WN, no apparent distress, alert EENT: PERRL/EOMI, normal ENT inspection Neck: non-tender, normal alignment, supple, normal inspection Cardiovascular: normal peripheral pulses, normal rate, regular rhythm, no gallop/murmur, no JVD Respiratory/Chest: chest wall non-tender, lungs clear, normal breath sounds, no respiratory distress, no accessory muscle use Abdomen: normal bowel sounds, non tender, soft, no organomegaly, no mass Extremities: normal range of motion, non-tender Edema: trace edema 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 Start colchicine - see cardiology note.Await cardiolite stress test. (4) HTN (hypertension) Assessment & Plan: continue norvasc (5) COPD (chronic obstructive pulmonary disease) (6) Hypercholesteremia Assessment & Plan: Continue lipitor (7) Renal cell carcinoma (8) Hepatitis C (9) BPH (benign prostatic hypertrophy) (10) DVT of leg (deep venous thrombosis) Assessment & Plan: On eliquis Status: stable Leonardo Palencia MD Apr 27, 2018 10:49
[2018-04-27] MEDS ORDERED: Miralax 17gm pkt ORAL PRN (11:15)
[2018-04-27 12:00] VITALS: BP 142/84
[2018-04-27] MEDS: Docusate 100mg cap ORAL SCH ×2 (12:00→17:15)
--- NOTE | 2018-04-27 12:13 | Pulmonology Progress Note ---
Assessment/Plan Problems: (1) Costochondritis (2) Chest pain of uncertain etiology (3) Deep vein thrombosis (DVT) of left lower extremity (4) Hepatitis C (5) COPD (chronic obstructive pulmonary disease) (6) Renal cell carcinoma Assessment/Plan symptomatic treatment check troponin check electrolytes f/u cardio recommendations stress test Subjective ROS Limited/Unobtainable: No Interval Events: late note for 04/26 Constitutional: Reports: no symptoms HEENT: Repors: no symptoms Allergies: Coded Allergies: No Known Allergies (Unverified , 10/27/12) Objective Last 24 Hour Vital Signs Date Time Temp Pulse Resp B/P (MAP) Pulse Ox O2 Delivery O2 Flow Rate FiO2 04/27/18 09:00 Room Air 04/27/18 08:50 65 134/73 04/27/18 08:00 97.6 65 20 134/73 (93) 95 97.6 04/27/18 08:00 64 04/27/18 04:00 64 04/27/18 04:00 97.5 64 20 128/72 (90) 95 97.5 04/27/18 00:00 68 04/27/18 00:00 97.1 62 20 135/85 (102) 97 97.1 04/26/18 20:05 Room Air 04/26/18 20:00 77 04/26/18 20:00 97.1 76 20 124/65 (84) 95 97.1 04/26/18 16:00 60 04/26/18 16:00 96.7 65 18 127/75 (92) 95 96.7 Intake and Output 04/26/18 04/27/18 19:00 07:00 Intake Total 480 ml Output Total 100 ml Balance 380 ml Intake Oral 480 ml Output Urine Total 100 ml # Voids 1 3 General Appearance: WD/WN HEENT: normocephalic, atraumatic Respiratory/Chest: chest wall non-tender, lungs clear, chest wall tender Cardiovascular: normal peripheral pulses, normal rate Abdomen: normal bowel sounds, no organomegaly Extremities: no cyanosis Skin: no rash Laboratory Tests 04/27/18 06:05: White Blood Count 7.5, Red Blood Count 4.60L, Hemoglobin 14.5, Hematocrit 43.3, Mean Corpuscular Volume 94, Mean Corpuscular Hemoglobin 31.5H, Mean Corpuscular Hemoglobin Concent 33.5, Red Cell Distribution Width 12.8, Platelet Count 205, Mean Platelet Volume 8.7, Neutrophils (%) (Auto) 57.8, Lymphocytes (%) (Auto) 35.0, Monocytes (%) (Auto) 5.3, Eosinophils (%) (Auto) 1.0, Basophils (%) (Auto ) 0.9, Sodium Level 143, Potassium Level 4.4, Chloride Level 107, Carbon Dioxide Level 31, Anion Gap 5, Blood Urea Nitrogen 14, Creatinine 1.2, Estimat Glomerular Filtration Rate > 60, Glucose Level 144H, Calcium Level 9.2, Total Bilirubin 0.3, Aspartate Amino Transf (AST/SGOT) 22, Alanine Aminotransferase ( ALT/SGPT) 57, Alkaline Phosphatase 71, Troponin I 0.000, Total Protein 6.9, Albumin 3.5, Globulin 3.4, Albumin/Globulin Ratio 1.0 Current Medications Medications (Trade) Dose Ordered Sig/Felipe Route PRN Reason Start Time Stop Time Status Last Admin Dose Admin Acetaminophen (Tylenol) 650 mg Q4H PRN ORAL FEVER (temp>100.5F) 04/24/18 18:00 05/24/18 17:59 04/24/18 23:40 Albuterol/ Ipratropium (Albuterol/ Ipratropium) 3 ml Q4H PRN HHN Shortness of Breath 04/24/18 18:00 04/29/18 17:59 Amlodipine Besylate (Norvasc) 5 mg DAILY ORAL 04/26/18 09:00 05/26/18 08:59 04/26/18 08:50 Aspirin (ASA) 162 mg DAILY ORAL 04/25/18 09:00 05/25/18 08:59 04/27/18 08:50 Atorvastatin Calcium (Lipitor) 20 mg BEDTIME ORAL 04/25/18 21:00 05/25/18 20:59 04/26/18 20:23 Colchicine (Colchicine) 0.6 mg DAILY ORAL 04/27/18 09:00 05/27/18 08:59 04/27/18 08:50 Diltiazem HCl (Cardizem) 10 mg EVERY HOUR PRN IV heart rate more than 120, 04/24/18 18:00 05/24/18 17:59 Docusate Sodium (Colace) 100 mg TWICE A DAY ORAL 04/27/18 12:00 05/27/18 11:59 Enalaprilat (Vasotec) 2.5 mg EVERY 6 HOURS PRN IV sbp more than 160 04/24/18 18:00 05/24/18 17:59 Heparin Sodium (Porcine) (Heparin 5000 units/ml) 5,000 units EVERY 12 HOURS SUBQ 04/24/18 21:00 05/24/18 20:59 04/27/18 08:52 Morphine Sulfate (Morphine Sulfate) 2 mg Q4H PRN IVP Moderate Pain (Pain Scale 4-6) 04/25/18 14:00 05/01/18 17:59 04/26/18 20:24 Morphine Sulfate (Morphine Sulfate) 4 mg Q4H PRN IVP Severe Pain (Pain Scale 7-10) 04/25/18 12:15 05/02/18 12:14 Nitroglycerin (Ntg) 0.4 mg Q5M PRN SL Prn Chest Pain 04/24/18 18:00 05/24/18 17:59 Ondansetron HCl (Zofran) 4 mg Q6H PRN IVP Nausea & Vomiting 04/24/18 18:00 05/24/18 17:59 Polyethylene Glycol (Miralax) 17 gm DAILYPRN PRN ORAL Constipation 04/27/18 11:15 05/27/18 11:14 Regadenoson (Lexiscan) 0.4 mg ONCE PRN IV STRESS TEST 04/26/18 13:30 05/26/18 13:29 Tamsulosin HCl (Flomax) 0.4 mg BEDTIME ORAL 04/26/18 21:00 05/26/18 20:59 04/26/18 20:23 Temazepam (Restoril) 15 mg HSPRN PRN ORAL Insomnia 04/24/18 18:00 05/01/18 17:59 Susy Morse MD Apr 27, 2018 12:13
--- NOTE | 2018-04-27 12:18 | Pulmonology Progress Note ---
Assessment/Plan Problems: (1) Costochondritis (2) Chest pain of uncertain etiology (3) Deep vein thrombosis (DVT) of left lower extremity (4) Hepatitis C (5) COPD (chronic obstructive pulmonary disease) (6) Renal cell carcinoma Assessment/Plan no new complains symptomatic treatment check troponin check electrolytes f/u cardio recommendations stress test Subjective ROS Limited/Unobtainable: No Interval Events: waiting for stress test HEENT: Repors: no symptoms Respiratory: Reports: no symptoms Cardiovascular: Reports: no symptoms Allergies: Coded Allergies: No Known Allergies (Unverified , 10/27/12) Objective Last 24 Hour Vital Signs Date Time Temp Pulse Resp B/P (MAP) Pulse Ox O2 Delivery O2 Flow Rate FiO2 04/27/18 09:00 Room Air 04/27/18 08:50 65 134/73 04/27/18 08:00 97.6 65 20 134/73 (93) 95 97.6 04/27/18 08:00 64 04/27/18 04:00 64 04/27/18 04:00 97.5 64 20 128/72 (90) 95 97.5 04/27/18 00:00 68 04/27/18 00:00 97.1 62 20 135/85 (102) 97 97.1 04/26/18 20:05 Room Air 04/26/18 20:00 77 04/26/18 20:00 97.1 76 20 124/65 (84) 95 97.1 04/26/18 16:00 60 04/26/18 16:00 96.7 65 18 127/75 (92) 95 96.7 Intake and Output 04/26/18 04/27/18 19:00 07:00 Intake Total 480 ml Output Total 100 ml Balance 380 ml Intake Oral 480 ml Output Urine Total 100 ml # Voids 1 3 General Appearance: WD/WN HEENT: normocephalic, atraumatic Respiratory/Chest: chest wall non-tender, lungs clear, normal breath sounds Cardiovascular: normal peripheral pulses, normal rate Abdomen: normal bowel sounds, soft, non tender Extremities: no cyanosis Skin: no rash 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 normal Lymphatic: no neck adenopathy Laboratory Tests 04/27/18 06:05: White Blood Count 7.5, Red Blood Count 4.60L, Hemoglobin 14.5, Hematocrit 43.3, Mean Corpuscular Volume 94, Mean Corpuscular Hemoglobin 31.5H, Mean Corpuscular Hemoglobin Concent 33.5, Red Cell Distribution Width 12.8, Platelet Count 205, Mean Platelet Volume 8.7, Neutrophils (%) (Auto) 57.8, Lymphocytes (%) (Auto) 35.0, Monocytes (%) (Auto) 5.3, Eosinophils (%) (Auto) 1.0, Basophils (%) (Auto ) 0.9, Sodium Level 143, Potassium Level 4.4, Chloride Level 107, Carbon Dioxide Level 31, Anion Gap 5, Blood Urea Nitrogen 14, Creatinine 1.2, Estimat Glomerular Filtration Rate > 60, Glucose Level 144H, Calcium Level 9.2, Total Bilirubin 0.3, Aspartate Amino Transf (AST/SGOT) 22, Alanine Aminotransferase ( ALT/SGPT) 57, Alkaline Phosphatase 71, Troponin I 0.000, Total Protein 6.9, Albumin 3.5, Globulin 3.4, Albumin/Globulin Ratio 1.0 Current Medications Medications (Trade) Dose Ordered Sig/Felipe Route PRN Reason Start Time Stop Time Status Last Admin Dose Admin Acetaminophen (Tylenol) 650 mg Q4H PRN ORAL FEVER (temp>100.5F) 04/24/18 18:00 05/24/18 17:59 04/24/18 23:40 Albuterol/ Ipratropium (Albuterol/ Ipratropium) 3 ml Q4H PRN HHN Shortness of Breath 04/24/18 18:00 04/29/18 17:59 Amlodipine Besylate (Norvasc) 5 mg DAILY ORAL 04/26/18 09:00 05/26/18 08:59 04/26/18 08:50 Aspirin (ASA) 162 mg DAILY ORAL 04/25/18 09:00 05/25/18 08:59 04/27/18 08:50 Atorvastatin Calcium (Lipitor) 20 mg BEDTIME ORAL 04/25/18 21:00 05/25/18 20:59 04/26/18 20:23 Colchicine (Colchicine) 0.6 mg DAILY ORAL 04/27/18 09:00 05/27/18 08:59 04/27/18 08:50 Diltiazem HCl (Cardizem) 10 mg EVERY HOUR PRN IV heart rate more than 120, 04/24/18 18:00 05/24/18 17:59 Docusate Sodium (Colace) 100 mg TWICE A DAY ORAL 04/27/18 12:00 05/27/18 11:59 Enalaprilat (Vasotec) 2.5 mg EVERY 6 HOURS PRN IV sbp more than 160 04/24/18 18:00 05/24/18 17:59 Heparin Sodium (Porcine) (Heparin 5000 units/ml) 5,000 units EVERY 12 HOURS SUBQ 04/24/18 21:00 05/24/18 20:59 04/27/18 08:52 Morphine Sulfate (Morphine Sulfate) 2 mg Q4H PRN IVP Moderate Pain (Pain Scale 4-6) 04/25/18 14:00 05/01/18 17:59 04/26/18 20:24 Morphine Sulfate (Morphine Sulfate) 4 mg Q4H PRN IVP Severe Pain (Pain Scale 7-10) 04/25/18 12:15 05/02/18 12:14 Nitroglycerin (Ntg) 0.4 mg Q5M PRN SL Prn Chest Pain 04/24/18 18:00 05/24/18 17:59 Ondansetron HCl (Zofran) 4 mg Q6H PRN IVP Nausea & Vomiting 04/24/18 18:00 05/24/18 17:59 Polyethylene Glycol (Miralax) 17 gm DAILYPRN PRN ORAL Constipation 04/27/18 11:15 05/27/18 11:14 Regadenoson (Lexiscan) 0.4 mg ONCE PRN IV STRESS TEST 04/26/18 13:30 05/26/18 13:29 Tamsulosin HCl (Flomax) 0.4 mg BEDTIME ORAL 04/26/18 21:00 05/26/18 20:59 04/26/18 20:23 Temazepam (Restoril) 15 mg HSPRN PRN ORAL Insomnia 04/24/18 18:00 05/01/18 17:59 Susy Morse MD Apr 27, 2018 12:18
--- NOTE | 2018-04-27 13:35 | Cardiology Progress Note ---
Assessment/Plan Status: stable Assessment/Plan Assessment Chest pain DVT BPH HTN Asthma/COPD Hepatitis C Plan: CRP Clinical suspicion of chostochondritis - continue colcicine for 1-2 weeks, add 800 mg Ibuprofen TID for 1 week Serial EKG/Troponin Aspirin Statin Nitro prn chest pain No indication for cardiac cath or heparin at this time Echocardiogram reviewed, normal LV function Stress test prior to discharge due to multiple risk factors Subjective Cardiovascular: Reports: no symptoms Respiratory: Reports: no symptoms Gastrointestinal/Abdominal: Reports: no symptoms Genitourinary: Reports: no symptoms Subjective No acute events, vitals stable, troponin negative Awaiting echocardiogram Chest pain reproducible. Echo with normal LV function, Abdominal US with no pathology For stress test today Objective Last 24 Hour Vital Signs Date Time Temp Pulse Resp B/P (MAP) Pulse Ox O2 Delivery O2 Flow Rate FiO2 04/27/18 12:00 97.8 61 20 142/84 (103) 95 97.8 04/27/18 09:00 Room Air 04/27/18 08:50 65 134/73 04/27/18 08:00 97.6 65 20 134/73 (93) 95 97.6 04/27/18 08:00 64 04/27/18 04:00 64 04/27/18 04:00 97.5 64 20 128/72 (90) 95 97.5 04/27/18 00:00 68 04/27/18 00:00 97.1 62 20 135/85 (102) 97 97.1 04/26/18 20:05 Room Air 04/26/18 20:00 77 04/26/18 20:00 97.1 76 20 124/65 (84) 95 97.1 04/26/18 16:00 60 04/26/18 16:00 96.7 65 18 127/75 (92) 95 96.7 General Appearance: no apparent distress EENT: PERRL/EOMI Neck: non-tender Rhythm: NSR Cardiovascular: normal peripheral pulses Respiratory/Chest: lungs clear, normal breath sounds Abdomen: normal bowel sounds Extremities: normal range of motion 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 Intake and Output 04/26/18 04/27/18 19:00 07:00 Intake Total 480 ml Output Total 100 ml Balance 380 ml Intake Oral 480 ml Output Urine Total 100 ml # Voids 1 3 Laboratory Tests Test 04/27/18 06:05 White Blood Count 7.5 K/UL (4.8-10.8) Red Blood Count 4.60 M/UL (4.70-6.10) L Hemoglobin 14.5 G/DL (14.2-18.0) Hematocrit 43.3 % (42.0-52.0) Mean Corpuscular Volume 94 FL (80-99) Mean Corpuscular Hemoglobin 31.5 PG (27.0-31.0) H Mean Corpuscular Hemoglobin Concent 33.5 G/DL (32.0-36.0) Red Cell Distribution Width 12.8 % (11.6-14.8) Platelet Count 205 K/UL (150-450) Mean Platelet Volume 8.7 FL (6.5-10.1) Neutrophils (%) (Auto) 57.8 % (45.0-75.0) Lymphocytes (%) (Auto) 35.0 % (20.0-45.0) Monocytes (%) (Auto) 5.3 % (1.0-10.0) Eosinophils (%) (Auto) 1.0 % (0.0-3.0) Basophils (%) (Auto) 0.9 % (0.0-2.0) Sodium Level 143 MMOL/L (136-145) Potassium Level 4.4 MMOL/L (3.5-5.1) Chloride Level 107 MMOL/L (98-107) Carbon Dioxide Level 31 MMOL/L (21-32) Anion Gap 5 mmol/L (5-15) Blood Urea Nitrogen 14 mg/dL (7-18) Creatinine 1.2 MG/DL (0.55-1.30) Estimat Glomerular Filtration Rate > 60 mL/min (>60) Glucose Level 144 MG/DL (74-106) H Calcium Level 9.2 MG/DL (8.5-10.1) Total Bilirubin 0.3 MG/DL (0.2-1.0) Aspartate Amino Transf (AST/SGOT) 22 U/L (15-37) Alanine Aminotransferase (ALT/SGPT) 57 U/L (12-78) Alkaline Phosphatase 71 U/L (46-116) Troponin I 0.000 ng/mL (0.000-0.056) Total Protein 6.9 G/DL (6.4-8.2) Albumin 3.5 G/DL (3.4-5.0) Globulin 3.4 g/dL Albumin/Globulin Ratio 1.0 (1.0-2.7) Talib Lagos M.D. Apr 27, 2018 13:35
[2018-04-27] MEDS: Morphine Sulfate 2mg/ml Inj IVP PRN ×2 (14:37→23:30)
--- NOTE | 2018-04-27 15:46 | Consultation ---
History of Present Illness General Date patient seen: Apr 27, 2018 Chief Complaint: Chest Pain Present Illness HPI 72-year-old male. the pt had a pizza a week ago and the next morning, he woke up with severe abdominal pain. the pt has anxiety and insomnia Allergies: Coded Allergies: No Known Allergies (Unverified , 10/27/12) Medication History Scheduled Amlodipine Besylate* (Amlodipine Besylate*), 5 MG ORAL DAILY, (Reported) Cholecalciferol (Vitamin D3)* (Vitamin D*), 2,000 UNITS ORAL DAILY, (Reported) Rivaroxaban (Xarelto*), Unknown Dose ORAL DAILY, (Reported) Simvastatin (Zocor), 40 MG PO QHS, (Reported) Tamsulosin HCl (Flomax), 0.4 MG PO QHS, (Reported) Scheduled PRN Oxycodone Hcl* (Roxicodone*), 30 MG ORAL Q6H PRN for For Pain, (Reported) Tizanidine Hcl* (Zanaflex*), Unknown Dose ORAL THREE TIMES A DAY PRN for For Pain, (Reported) Discontinued Medications Acetaminophen* (Tylenol Extra Strength*), 500 MG ORAL Q6H Discontinued Reason: Pt stopped taking med Albuterol Sulfate (Ventolin Hfa), 1 PUFF INH EVERY 6 HOURS, (Reported) Discontinued Reason: Pt stopped taking med Apixaban (Eliquis), 5 MG ORAL BID Discontinued Reason: Pt stopped taking med Aspirin* (Aspir 81*), 81 MG ORAL DAILY, (Reported) Discontinued Reason: Pt stopped taking med Bacitracin Zinc/Polymyx B Sulf (Hm Double Antibiotic Ointment), 1 APPLIC TP BID Discontinued Reason: Pt stopped taking med Cephalexin* (Keflex*), 500 MG ORAL EVERY 12 HOURS Discontinued Reason: Pt stopped taking med Patient History Limited by: medical condition History Provided By: Patient, Medical Record, PMD Healthcare decision maker Resuscitation status Full Code Advanced Directive on File No Past Medical/Surgical History Past Medical/Surgical History: (1) Low back pain (2) Dizziness (3) ACS (acute coronary syndrome) (4) Urinary tract infection (5) Diabetes (6) Dyspnea (7) Flank pain (8) CHF (congestive heart failure) (9) Pyelonephritis, acute (10) Weakness (11) Hypotension (12) Proteus mirabilis infection (13) Laceration of finger with delay in treatment (14) Ataxia (15) Renal cell carcinoma (16) COPD exacerbation (17) Chest pain, atypical (18) COPD (chronic obstructive pulmonary disease) (19) BPH (benign prostatic hypertrophy) (20) HTN (hypertension) (21) Hepatitis C (22) Deep vein thrombosis (DVT) of left lower extremity (23) Costochondritis (24) Chest pain of uncertain etiology (25) Abdominal pain (26) Hypercholesteremia (27) Epigastric abdominal pain (28) Chest pain (29) Hypertensive hypertrophic cardiomyopathy, without heart failure (30) DVT of leg (deep venous thrombosis) (31) Abdominal pain Review of Systems Psychiatric: Reports: prior hx, anxiety, depressed feelings Physical Exam General Appearance: no apparent distress, alert Neurologic: oriented x 3, responsive, depressed affect Last 24 Hour Vital Signs Date Time Temp Pulse Resp B/P (MAP) Pulse Ox O2 Delivery O2 Flow Rate FiO2 04/27/18 15:07 97.8 04/27/18 12:00 97.8 61 20 142/84 (103) 95 97.8 04/27/18 09:00 Room Air 04/27/18 08:50 65 134/73 04/27/18 08:00 97.6 65 20 134/73 (93) 95 97.6 04/27/18 08:00 64 04/27/18 04:00 64 04/27/18 04:00 97.5 64 20 128/72 (90) 95 97.5 04/27/18 00:00 68 04/27/18 00:00 97.1 62 20 135/85 (102) 97 97.1 04/26/18 20:05 Room Air 04/26/18 20:00 77 04/26/18 20:00 97.1 76 20 124/65 (84) 95 97.1 04/26/18 16:00 60 04/26/18 16:00 96.7 65 18 127/75 (92) 95 96.7 Intake and Output 04/26/18 04/27/18 19:00 07:00 Intake Total 480 ml Output Total 100 ml Balance 380 ml Intake Oral 480 ml Output Urine Total 100 ml # Voids 1 3 Laboratory Tests Test 04/27/18 06:05 White Blood Count 7.5 K/UL (4.8-10.8) Red Blood Count 4.60 M/UL (4.70-6.10) L Hemoglobin 14.5 G/DL (14.2-18.0) Hematocrit 43.3 % (42.0-52.0) Mean Corpuscular Volume 94 FL (80-99) Mean Corpuscular Hemoglobin 31.5 PG (27.0-31.0) H Mean Corpuscular Hemoglobin Concent 33.5 G/DL (32.0-36.0) Red Cell Distribution Width 12.8 % (11.6-14.8) Platelet Count 205 K/UL (150-450) Mean Platelet Volume 8.7 FL (6.5-10.1) Neutrophils (%) (Auto) 57.8 % (45.0-75.0) Lymphocytes (%) (Auto) 35.0 % (20.0-45.0) Monocytes (%) (Auto) 5.3 % (1.0-10.0) Eosinophils (%) (Auto) 1.0 % (0.0-3.0) Basophils (%) (Auto) 0.9 % (0.0-2.0) Sodium Level 143 MMOL/L (136-145) Potassium Level 4.4 MMOL/L (3.5-5.1) Chloride Level 107 MMOL/L (98-107) Carbon Dioxide Level 31 MMOL/L (21-32) Anion Gap 5 mmol/L (5-15) Blood Urea Nitrogen 14 mg/dL (7-18) Creatinine 1.2 MG/DL (0.55-1.30) Estimat Glomerular Filtration Rate > 60 mL/min (>60) Glucose Level 144 MG/DL (74-106) H Calcium Level 9.2 MG/DL (8.5-10.1) Total Bilirubin 0.3 MG/DL (0.2-1.0) Aspartate Amino Transf (AST/SGOT) 22 U/L (15-37) Alanine Aminotransferase (ALT/SGPT) 57 U/L (12-78) Alkaline Phosphatase 71 U/L (46-116) Troponin I 0.000 ng/mL (0.000-0.056) Total Protein 6.9 G/DL (6.4-8.2) Albumin 3.5 G/DL (3.4-5.0) Globulin 3.4 g/dL Albumin/Globulin Ratio 1.0 (1.0-2.7) Height (Feet): 5 Height (Inches): 8.00 Weight (Pounds): 199 Medications Current Medications Medications (Trade) Dose Ordered Sig/Felipe Route PRN Reason Start Time Stop Time Status Last Admin Dose Admin Acetaminophen (Tylenol) 650 mg Q4H PRN ORAL FEVER (temp>100.5F) 04/24/18 18:00 05/24/18 17:59 04/24/18 23:40 Albuterol/ Ipratropium (Albuterol/ Ipratropium) 3 ml Q4H PRN HHN Shortness of Breath 04/24/18 18:00 04/29/18 17:59 Amlodipine Besylate (Norvasc) 5 mg DAILY ORAL 04/26/18 09:00 05/26/18 08:59 04/26/18 08:50 Aspirin (ASA) 162 mg DAILY ORAL 04/25/18 09:00 05/25/18 08:59 04/27/18 08:50 Atorvastatin Calcium (Lipitor) 20 mg BEDTIME ORAL 04/25/18 21:00 05/25/18 20:59 04/26/18 20:23 Colchicine (Colchicine) 0.6 mg DAILY ORAL 04/27/18 09:00 05/27/18 08:59 04/27/18 08:50 Diltiazem HCl (Cardizem) 10 mg EVERY HOUR PRN IV heart rate more than 120, 04/24/18 18:00 05/24/18 17:59 Docusate Sodium (Colace) 100 mg TWICE A DAY ORAL 04/27/18 12:00 05/27/18 11:59 Enalaprilat (Vasotec) 2.5 mg EVERY 6 HOURS PRN IV sbp more than 160 04/24/18 18:00 05/24/18 17:59 Heparin Sodium (Porcine) (Heparin 5000 units/ml) 5,000 units EVERY 12 HOURS SUBQ 04/24/18 21:00 05/24/18 20:59 04/27/18 08:52 Morphine Sulfate (Morphine Sulfate) 2 mg Q4H PRN IVP Moderate Pain (Pain Scale 4-6) 04/25/18 14:00 05/01/18 17:59 04/27/18 14:37 Morphine Sulfate (Morphine Sulfate) 4 mg Q4H PRN IVP Severe Pain (Pain Scale 7-10) 04/25/18 12:15 05/02/18 12:14 Nitroglycerin (Ntg) 0.4 mg Q5M PRN SL Prn Chest Pain 04/24/18 18:00 05/24/18 17:59 Ondansetron HCl (Zofran) 4 mg Q6H PRN IVP Nausea & Vomiting 04/24/18 18:00 05/24/18 17:59 Polyethylene Glycol (Miralax) 17 gm DAILYPRN PRN ORAL Constipation 04/27/18 11:15 05/27/18 11:14 Regadenoson (Lexiscan) 0.4 mg ONCE PRN IV STRESS TEST 04/26/18 13:30 05/26/18 13:29 Tamsulosin HCl (Flomax) 0.4 mg BEDTIME ORAL 04/26/18 21:00 05/26/18 20:59 04/26/18 20:23 Temazepam (Restoril) 15 mg HSPRN PRN ORAL Insomnia 04/24/18 18:00 05/01/18 17:59 Assessment/Plan Assessment/Plan Anxiety d/o Insomnia Restoril prn provided simone/Angelika Noel MD Apr 27, 2018 15:46
[2018-04-27 16:00] VITALS: BP 146/88
[2018-04-27 20:00] VITALS: BP 129/77
[2018-04-27] MEDS: Tamsulosin 0.4mg cap ORAL SCH (20:13)
[2018-04-27] MEDS: Atorvastatin 20mg tab ORAL SCH (20:13)
--- NOTE | 2018-04-27 20:25 | Cardiology Report ---
APPROVED REPORT EXAM: Two-dimensional and M-mode echocardiogram with Doppler and color Doppler. INDICATION Left ventricular function M-Mode DIMENSIONS IVSd0.7 (0.7-1.1cm)Left Atrium (MM)3.2 (1.6-4.0cm) LVDd4.6 (3.5-5.6cm)Aortic Root3.2 (2.0-3.7cm) PWd1.1 (0.7-1.1cm)Aortic Cusp Exc.2.0 (1.5-2.0cm) LVDs2.6 (2.5-4.0cm) PWs1.0 cm Normal left ventricular chamber size, systolic function and wall motion. Left ventricular ejection fraction estimated to be 60-65%. No evidence of left ventricular hypertrophy. No evidence of pericardial or pleural effusion. Right cardiac chamber sizes are within normal limits. Mild left atrial enlargement by 2D. Focal aortic valve sclerosis with adequate cusp excursion. Normal mitral valve leaflets with normal excursion. Normal mitral annulus and aortic root. Pulmonic valve not well visualized. Normal tricuspid valve structure. IVC is normal in size and collapsible with respiration. A color flow and spectral Doppler study was performed and revealed: No aortic regurgitation. No mitral regurgitation. Mitral diastolic velocities suggest reduced left ventricular relaxation c/w diastolic dysfunction grade 1. No tricuspid regurgitation.
[2018-04-28] VITALS (11 sets, daily range): BP systolic 115–149; BP diastolic 71–81
[2018-04-28 07:25] LABS: BASOPHILS % (AUTO) 1.2 % (0.0-2.0); EOSINOPHILS % (AUTO) 1.2 % (0.0-3.0); HEMATOCRIT 43.5 % (42.0-52.0); HEMOGLOBIN 14.5 G/DL (14.2-18.0); LYMPHOCYTES % (AUTO) 32.4 % (20.0-45.0); MEAN CORPUSCULAR VOLUME 93 FL (80-99); MONOCYTES % (AUTO) 7.4 % (1.0-10.0); NEUTROPHILS % (AUTO) 57.8 % (45.0-75.0); PLATELET COUNT 182 K/UL (150-450); RED BLOOD COUNT 4.65 M/UL (4.70-6.10); RED CELL DISTRIBUTION WIDTH 12.4 % (11.6-14.8); WHITE BLOOD COUNT 7.7 K/UL (4.8-10.8)
[2018-04-28 07:51] LABS: ANION GAP 9 mmol/L (5-15); BLOOD UREA NITROGEN 14 mg/dL (7-18); CARBON DIOXIDE 27 MMOL/L (21-32); CHLORIDE 104 MMOL/L (98-107); CREATININE 1.2 MG/DL (0.55-1.30); POTASSIUM 3.9 MMOL/L (3.5-5.1); SODIUM 140 MMOL/L (136-145)
[2018-04-28] MEDS: Heparin 5000 units/ml inj SUBQ SCH ×2 (09:00→21:53)
[2018-04-28] MEDS: Aspirin Baby 81mg ORAL SCH (09:00)
--- NOTE | 2018-04-28 09:24 | Cardiology Progress Note ---
Assessment/Plan Status: stable Assessment/Plan Assessment Chest pain DVT BPH HTN Asthma/COPD Hepatitis C Plan: CRP negative Clinical suspicion of chostochondritis - continue colcicine for 1-2 weeks, add 800 mg Ibuprofen TID for 1 week Serial EKG/Troponin Aspirin Statin Nitro prn chest pain No indication for cardiac cath or heparin at this time Echocardiogram reviewed, normal LV function Follow up results of stress test, if negative ok to discharge home Subjective Cardiovascular: Reports: no symptoms Respiratory: Reports: no symptoms Gastrointestinal/Abdominal: Reports: no symptoms Genitourinary: Reports: no symptoms Subjective No acute events, vitals stable, troponin negative. Patient had stress test yesterday, awaiting results Echo with normal LV function, Abdominal US with no pathology Objective Last 24 Hour Vital Signs Date Time Temp Pulse Resp B/P (MAP) Pulse Ox O2 Delivery O2 Flow Rate FiO2 04/28/18 04:00 63 04/28/18 04:00 97.7 65 18 121/81 (94) 99 97.7 04/28/18 00:00 61 04/28/18 00:00 98.3 64 20 124/75 (91) 96 98.3 04/27/18 21:00 Room Air 04/27/18 20:00 98.4 69 20 129/77 (94) 97 98.4 04/27/18 20:00 72 04/27/18 16:00 97.5 75 18 146/88 (107) 95 97.5 04/27/18 16:00 77 04/27/18 15:07 97.8 04/27/18 12:00 64 04/27/18 12:00 97.8 61 20 142/84 (103) 95 97.8 General Appearance: no apparent distress, severe distress Neck: non-tender Rhythm: NSR Cardiovascular: normal peripheral pulses Respiratory/Chest: lungs clear, normal breath sounds Abdomen: normal bowel sounds, non tender 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: 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 normal Intake and Output 04/27/18 04/28/18 19:00 07:00 Intake Total 240 ml Output Total 200 ml Balance 40 ml Intake Oral 240 ml Output Urine Total 200 ml # Voids 2 2 # Bowel Movements 1 Laboratory Tests Test 04/28/18 05:52 White Blood Count 7.7 K/UL (4.8-10.8) Red Blood Count 4.65 M/UL (4.70-6.10) L Hemoglobin 14.5 G/DL (14.2-18.0) Hematocrit 43.5 % (42.0-52.0) Mean Corpuscular Volume 93 FL (80-99) Mean Corpuscular Hemoglobin 31.1 PG (27.0-31.0) H Mean Corpuscular Hemoglobin Concent 33.3 G/DL (32.0-36.0) Red Cell Distribution Width 12.4 % (11.6-14.8) Platelet Count 182 K/UL (150-450) Mean Platelet Volume 8.3 FL (6.5-10.1) Neutrophils (%) (Auto) 57.8 % (45.0-75.0) Lymphocytes (%) (Auto) 32.4 % (20.0-45.0) Monocytes (%) (Auto) 7.4 % (1.0-10.0) Eosinophils (%) (Auto) 1.2 % (0.0-3.0) Basophils (%) (Auto) 1.2 % (0.0-2.0) Prothrombin Time 10.5 SEC (9.30-11.50) Prothromb Time International Ratio 1.0 (0.9-1.1) Activated Partial Thromboplast Time 29 SEC (23-33) Sodium Level 140 MMOL/L (136-145) Potassium Level 3.9 MMOL/L (3.5-5.1) Chloride Level 104 MMOL/L (98-107) Carbon Dioxide Level 27 MMOL/L (21-32) Anion Gap 9 mmol/L (5-15) Blood Urea Nitrogen 14 mg/dL (7-18) Creatinine 1.2 MG/DL (0.55-1.30) Estimat Glomerular Filtration Rate > 60 mL/min (>60) Glucose Level 146 MG/DL (74-106) H Calcium Level 9.0 MG/DL (8.5-10.1) Talib Lagos M.D. Apr 28, 2018 09:24
--- NOTE | 2018-04-28 11:04 | Pulmonology Progress Note ---
Assessment/Plan Problems: (1) Costochondritis (2) Chest pain of uncertain etiology (3) Deep vein thrombosis (DVT) of left lower extremity (4) Hepatitis C (5) COPD (chronic obstructive pulmonary disease) (6) Renal cell carcinoma Assessment/Plan no new complains symptomatic treatment check troponin check electrolytes f/u cardio recommendations stress test, last part pending dc home if stress test negative Subjective ROS Limited/Unobtainable: No Constitutional: Reports: no symptoms HEENT: Repors: no symptoms Allergies: Coded Allergies: No Known Allergies (Unverified , 10/27/12) Objective Last 24 Hour Vital Signs Date Time Temp Pulse Resp B/P (MAP) Pulse Ox O2 Delivery O2 Flow Rate FiO2 04/28/18 09:00 Room Air 04/28/18 08:00 97.7 62 18 133/75 (94) 97 97.7 04/28/18 04:00 63 04/28/18 04:00 97.7 65 18 121/81 (94) 99 97.7 04/28/18 00:00 61 04/28/18 00:00 98.3 64 20 124/75 (91) 96 98.3 04/27/18 21:00 Room Air 04/27/18 20:00 98.4 69 20 129/77 (94) 97 98.4 04/27/18 20:00 72 04/27/18 16:00 97.5 75 18 146/88 (107) 95 97.5 04/27/18 16:00 77 04/27/18 15:07 97.8 04/27/18 12:00 64 04/27/18 12:00 97.8 61 20 142/84 (103) 95 97.8 Intake and Output 04/27/18 04/28/18 19:00 07:00 Intake Total 240 ml Output Total 200 ml Balance 40 ml Intake Oral 240 ml Output Urine Total 200 ml # Voids 2 2 # Bowel Movements 1 General Appearance: WD/WN HEENT: normocephalic, atraumatic Respiratory/Chest: chest wall non-tender, lungs clear Cardiovascular: normal peripheral pulses, normal rate, regularly irregular Abdomen: normal bowel sounds, soft, non tender Skin: no rash 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 grossly normal, no motor/sensory deficits Laboratory Tests 04/28/18 05:52: White Blood Count 7.7, Red Blood Count 4.65L, Hemoglobin 14.5, Hematocrit 43.5, Mean Corpuscular Volume 93, Mean Corpuscular Hemoglobin 31.1H, Mean Corpuscular Hemoglobin Concent 33.3, Red Cell Distribution Width 12.4, Platelet Count 182, Mean Platelet Volume 8.3, Neutrophils (%) (Auto) 57.8, Lymphocytes (%) (Auto) 32.4, Monocytes (%) (Auto) 7.4, Eosinophils (%) (Auto) 1.2, Basophils (%) (Auto ) 1.2, Prothrombin Time 10.5, Prothromb Time International Ratio 1.0, Activated Partial Thromboplast Time 29, Sodium Level 140, Potassium Level 3.9, Chloride Level 104, Carbon Dioxide Level 27, Anion Gap 9, Blood Urea Nitrogen 14, Creatinine 1.2, Estimat Glomerular Filtration Rate > 60, Glucose Level 146H, Calcium Level 9.0 Current Medications Medications (Trade) Dose Ordered Sig/Felipe Route PRN Reason Start Time Stop Time Status Last Admin Dose Admin Acetaminophen (Tylenol) 650 mg Q4H PRN ORAL FEVER (temp>100.5F) 04/24/18 18:00 05/24/18 17:59 04/24/18 23:40 Albuterol/ Ipratropium (Albuterol/ Ipratropium) 3 ml Q4H PRN HHN Shortness of Breath 04/24/18 18:00 04/29/18 17:59 Amlodipine Besylate (Norvasc) 5 mg DAILY ORAL 04/26/18 09:00 05/26/18 08:59 04/26/18 08:50 Aspirin (ASA) 162 mg DAILY ORAL 04/25/18 09:00 05/25/18 08:59 04/27/18 08:50 Atorvastatin Calcium (Lipitor) 20 mg BEDTIME ORAL 04/25/18 21:00 05/25/18 20:59 04/27/18 20:13 Colchicine (Colchicine) 0.6 mg DAILY ORAL 04/27/18 09:00 05/27/18 08:59 04/27/18 08:50 Diltiazem HCl (Cardizem) 10 mg EVERY HOUR PRN IV heart rate more than 120, 04/24/18 18:00 05/24/18 17:59 Docusate Sodium (Colace) 100 mg TWICE A DAY ORAL 04/27/18 12:00 05/27/18 11:59 04/27/18 17:15 Enalaprilat (Vasotec) 2.5 mg EVERY 6 HOURS PRN IV sbp more than 160 04/24/18 18:00 05/24/18 17:59 Heparin Sodium (Porcine) (Heparin 5000 units/ml) 5,000 units EVERY 12 HOURS SUBQ 04/24/18 21:00 05/24/18 20:59 04/27/18 08:52 Morphine Sulfate (Morphine Sulfate) 2 mg Q4H PRN IVP Moderate Pain (Pain Scale 4-6) 04/25/18 14:00 05/01/18 17:59 04/27/18 23:30 Morphine Sulfate (Morphine Sulfate) 4 mg Q4H PRN IVP Severe Pain (Pain Scale 7-10) 04/25/18 12:15 05/02/18 12:14 Nitroglycerin (Ntg) 0.4 mg Q5M PRN SL Prn Chest Pain 04/24/18 18:00 05/24/18 17:59 Ondansetron HCl (Zofran) 4 mg Q6H PRN IVP Nausea & Vomiting 04/24/18 18:00 05/24/18 17:59 Polyethylene Glycol (Miralax) 17 gm DAILYPRN PRN ORAL Constipation 04/27/18 11:15 05/27/18 11:14 Regadenoson (Lexiscan) 0.4 mg ONCE PRN IV STRESS TEST 04/26/18 13:30 05/26/18 13:29 Tamsulosin HCl (Flomax) 0.4 mg BEDTIME ORAL 04/26/18 21:00 05/26/18 20:59 04/27/18 20:13 Temazepam (Restoril) 15 mg HSPRN PRN ORAL Insomnia 04/24/18 18:00 05/01/18 17:59 Susy Morse MD Apr 28, 2018 11:04
--- NOTE | 2018-04-28 11:19 | Diagnostic Imaging Report ---
Indications: Chest pain Technique: Single day single isotope protocol utilized. Initially, resting images obtained using IV administration 11 millicuries 99M technetium Myoview. Subsequently, patient underwent lexiscan stress testing. See cardiology report for details. During Lexiscan infusion, IV administration 32.5 mCi 99 M technetium Myoview. SPECT and planar images obtained. SPECT images gated to 8 phases of the cardiac cycle were also obtained, and reformatted into cine images for evaluation of ejection fraction. Comparison: none Findings: Presence or absence of symptoms during infusion is not described on the cardiology report. Per cardiology report, resting EKG demonstrates normal sinus rhythm. Presence or absence of EKG changes during infusion is not described on the cardiology report. Imaging demonstrates no definite significant fixed or reversible post stress perfusion defects. Normal cardiac chamber size. Calculated post stress ejection fraction is 68%. No focal wall motion abnormality demonstrated. Impression: Nonischemic clinical response to pharmacologic stress, per cardiology report Nonischemic electrocardiographic response to pharmacologic stress, per cardiology report No imaging findings to suggest ischemia, at level of stress achieved. Calculated post stress ejection fraction 68%
[2018-04-28] MEDS ORDERED: fentaNYL 100 mcg/2 mL IV ONE (11:30)
[2018-04-28] MEDS ORDERED: Midazolam 2mg/2ml Inj ONE (11:30)
[2018-04-28] MEDS ORDERED: NS 500ML IVPB ONE (11:30)
[2018-04-28] MEDS ORDERED: Propofol 200mg/20ml IV ONE (11:30)
[2018-04-28] MEDS ORDERED: LR 1000ml 1,000 ML IVLG SCH (11:33)
--- NOTE | 2018-04-28 11:33 | Anethesia Preoperative Eval ---
Anesthesia Pre-op PMH/ROS General Date of Evaluation: Apr 28, 2018 Time of Evaluation: 11:29 Anesthesiologist: Shania ASA Score: ASA 3 Mallampati Score Class I : Soft palate, uvula, fauces, pillars visible Class II: Soft palate, uvula, fauces visible Class III: Soft palate, base of uvula visible Class IV: Only hard plate visible Mallampati Classification: Class II Surgeon: Genesis Diagnosis: Abdominal Pain Surgical Procedure: EGD Anesthesia History: none Family History: no anesthesia problems Allergies: Coded Allergies: No Known Allergies (Unverified , 10/27/12) Medications: see eMAR Past Medical History Cardiovascular: Reports: HTN, CAD; Denies: MO, valve dz, arrhythmia, other Pulmonary: Reports: COPD; Denies: asthma, GAGE, other Gastrointestinal/Genitourinary: Reports: GERD, CRI, other - Renal cell CA s/p ASx Neurologic/Psychiatric: Denies: dementia, CVA, depression/anxiety, TIA, other Endocrine: Reports: DM - borderline HEENT: Denies: cataract (L), cataract (R), glaucoma, [place] (L), [place] (R), other Hematology/Immune: Denies: anemia, DVT, bleeding disorder, other Musculoskeletal/Integumentary: Reports: DJD Other: other - overweight PMH Narrative: as above PSxH Narrative: see chart Anesthesia Pre-op Phys. Exam Physician Exam Last Vital Signs Date Time Temp Pulse Resp B/P (MAP) Pulse Ox O2 Delivery O2 Flow Rate FiO2 04/28/18 09:00 Room Air 04/28/18 08:00 97.7 62 18 133/75 (94) 97 97.7 Constitutional: NAD Neurologic: CN 2-12 intact Cardiovascular: RRR, no M/R/G Respiratory: CTA Gastrointestinal: S/NT/ND Airway Exam Mallampati Score: Class II MO: limited Neck: stiff ROM: limited Teeth: missing Dentures: no upper, no lower Anesthesia Pre-op A/P Labs Hematology Test 04/28/18 05:52 White Blood Count 7.7 K/UL (4.8-10.8) Red Blood Count 4.65 M/UL (4.70-6.10) L Hemoglobin 14.5 G/DL (14.2-18.0) Hematocrit 43.5 % (42.0-52.0) Mean Corpuscular Volume 93 FL (80-99) Mean Corpuscular Hemoglobin 31.1 PG (27.0-31.0) H Mean Corpuscular Hemoglobin Concent 33.3 G/DL (32.0-36.0) Red Cell Distribution Width 12.4 % (11.6-14.8) Platelet Count 182 K/UL (150-450) Mean Platelet Volume 8.3 FL (6.5-10.1) Neutrophils (%) (Auto) 57.8 % (45.0-75.0) Lymphocytes (%) (Auto) 32.4 % (20.0-45.0) Monocytes (%) (Auto) 7.4 % (1.0-10.0) Eosinophils (%) (Auto) 1.2 % (0.0-3.0) Basophils (%) (Auto) 1.2 % (0.0-2.0) Coagulation Test 04/28/18 05:52 Prothrombin Time 10.5 SEC (9.30-11.50) Prothromb Time International Ratio 1.0 (0.9-1.1) Activated Partial Thromboplast Time 29 SEC (23-33) Chemistry Test 04/28/18 05:52 Sodium Level 140 MMOL/L (136-145) Potassium Level 3.9 MMOL/L (3.5-5.1) Chloride Level 104 MMOL/L (98-107) Carbon Dioxide Level 27 MMOL/L (21-32) Anion Gap 9 mmol/L (5-15) Blood Urea Nitrogen 14 mg/dL (7-18) Creatinine 1.2 MG/DL (0.55-1.30) Estimat Glomerular Filtration Rate > 60 mL/min (>60) Glucose Level 146 MG/DL (74-106) H Calcium Level 9.0 MG/DL (8.5-10.1) Risk Assessment & Plan Assessment: ASA 3 Plan: MAC Status Change Before Surgery: No Pre-Antibiotics Drug: none Jonathan Jauregui MD Apr 28, 2018 11:33
[2018-04-28] MEDS ORDERED: fentaNYL 100 mcg/2 mL IV PRN ×2 (11:45→16:45)
--- NOTE | 2018-04-28 12:17 | Pre-Procedure Note/Attestation ---
Pre-Procedure Note/Attestation Complete Prior to Procedure Planned Procedure: not applicable Procedure Narrative: egd Indications for Procedure Pre-Operative Diagnosis: abd pain Attestation I attest that I discussed the nature of the procedure; its benefits; risks and complications; and alternatives (and the risks and benefits of such alternatives ), prior to the procedure, with the patient (or the patient's legal petroleum products sales representative). I attest that, if there was a reasonable possibility of needing a blood transfusion, the patient (or the patient's legal petroleum products sales representative) was given the [facility] standardized written summary, pursuant to the Elian Michael Blood Safety Act ([place] Health and Safety Code # 1645, as amended). I attest that I re-evaluated the patient just prior to the surgery and that there has been no change in the patient's H&P, except as documented below: Clemente Hurtado MD Apr 28, 2018 12:17
--- NOTE | 2018-04-28 12:25 | Endoscopy Procedure Note ---
Endoscopy Procedure Note General Indication for Procedure: abd pain Procedures Performed: EGD Operative Findings/Diagnosis: gastritis Specimen: yes Pt Tolerated Procedure Well: Yes Estimated Blood Loss: none Anesthesia Anesthesiologist: jordan Anesthesia: MAC Inserted Devices Implant(s) used?: No GI Core Measures 50 yrs or older w/o bx or poly: Not Applicable 10yrs. F/U not recommended: Not Applicable Clemente Hurtado MD Apr 28, 2018 12:25
--- NOTE | 2018-04-28 12:34 | Immediate Post-Op Evaluation ---
Immediate Post-Op Evalulation Immediate Post-Op Evalulation Procedure: EGD Date of Evaluation: Apr 28, 2018 Time of Evaluation: 12:33 IV Fluids: 400 Blood Products: none Estimated Blood Loss: min Urinary Output: none Blood Pressure Systolic: 113 Blood Pressure Diastolic: 72 Pulse Rate: 67 Respiratory Rate: 20 O2 Sat by Pulse Oximetry: 98 Temperature (Fahrenheit): 97.5 Pain Score (1-10): 1 Nausea: No Vomiting: No Complications none Patient Status: reacts, patent, none Hydration Status: adequate Jonathan Jauregui MD Apr 28, 2018 12:34
--- NOTE | 2018-04-28 13:15 | Procedure Note ---
DATE OF PROCEDURE: 04/28/2018 SURGEON: Clemente Hurtado M.D. ANESTHESIOLOGIST: Dr. Jauregui. REFERRING PHYSICIAN: Jaylen Lara M.D. PROCEDURE: Upper endoscopy with biopsy. ANESTHESIA: Per Dr. Jauregui. INSTRUMENT: Olympus adult flexible upper endoscope. INDICATION: Abdominal pain. The procedure, risks, benefits, and possible consequences, including hemorrhage, aspiration, perforation and infection, and alternative treatments, were explained to the patient/legal guardian by Dr. Clemente Hurtado and the patient/legal guardian understood and accepted these risks. DESCRIPTION OF PROCEDURE: After informed consent was obtained and the patient was adequately sedated, Olympus upper endoscope was advanced from the mouth into the second portion of duodenum and retroflexion was performed in the stomach. The patient had evidence of multiple antral erosions. Diffuse gastritis. Biopsy from antrum was obtained to rule out H. pylori infection. Then, the scope was advanced to the duodenal bulb and second portion of the duodenum. The patient had mild duodenitis. No obvious active bleeding at this time. No mass was seen. No obvious hiatal hernia. The patient tolerated procedure very well without complication. SUMMARY OF FINDINGS: 1. Multiple antral erosions. 2. Gastritis, status post biopsy. 3. Duodenitis. RECOMMENDATIONS: 1. Follow up biopsy results and treat accordingly. 2. The patient needs outpatient followup for colonoscopy. I want to thank Dr. Jaylen Lara for this kind referral. Clemente Hurtado M.D. DR: Gerhard JOB#: [id number] CC: Jaylen Lara M.D.; Fax#: [phone]
[2018-04-28] MEDS: Docusate 100mg cap ORAL SCH ×2 (13:18→17:55)
--- NOTE | 2018-04-28 14:06 | 48 Hour Post Anesthesia Eval ---
Post Anesthesia Evaluation Procedure: EGD Date of Evaluation: Apr 28, 2018 Time of Evaluation: 14:05 Blood Pressure Systolic: 116 0: 78 Pulse Rate: 68 Respiratory Rate: 20 Temperature (Fahrenheit): 97.6 O2 Sat by Pulse Oximetry: 98 Airway: patent Nausea: No Vomiting: No Pain Intensity: 1 Hydration Status: adequate Cardiopulmonary Status: stable Mental Status/LOC: patient returned to baseline Follow-up Care/Observations: n/a Post-Anesthesia Complications: none Follow-up care needed: N/A Jonathan Jauregui MD Apr 28, 2018 14:06
--- NOTE | 2018-04-28 15:09 | General Progress Note ---
Assessment/Plan Status: stable Assessment/Plan Anxiety d/o Insomnia Restoril prn provided ro/st Subjective Date patient seen: Apr 28, 2018 Neurologic/Psychiatric: Reports: anxiety, depressed, emotional problems Allergies: Coded Allergies: No Known Allergies (Unverified , 10/27/12) Objective Last 24 Hour Vital Signs Date Time Temp Pulse Resp B/P (MAP) Pulse Ox O2 Delivery O2 Flow Rate FiO2 04/28/18 14:06 207.7 68 20 98 04/28/18 13:19 74 121/79 04/28/18 12:55 97.2 74 20 121/79 96 Room Air 97.2 04/28/18 12:40 72 22 122/79 95 Nasal Cannula 3 04/28/18 12:35 69 19 117/76 95 Nasal Cannula 3 04/28/18 12:34 207.5 67 20 98 04/28/18 12:30 67 21 115/75 96 Nasal Cannula 3 04/28/18 12:26 97.4 70 20 120/75 97 Nasal Cannula 3 97.4 04/28/18 11:25 98.2 72 18 149/71 (97) 99 98.2 04/28/18 09:00 Room Air 04/28/18 08:00 97.7 62 18 133/75 (94) 97 97.7 04/28/18 04:00 63 04/28/18 04:00 97.7 65 18 121/81 (94) 99 97.7 04/28/18 00:00 61 04/28/18 00:00 98.3 64 20 124/75 (91) 96 98.3 04/27/18 21:00 Room Air 04/27/18 20:00 98.4 69 20 129/77 (94) 97 98.4 04/27/18 20:00 72 04/27/18 16:00 97.5 75 18 146/88 (107) 95 97.5 04/27/18 16:00 77 Intake and Output 04/27/18 04/28/18 19:00 07:00 Intake Total 240 ml Output Total 200 ml Balance 40 ml Intake Oral 240 ml Output Urine Total 200 ml # Voids 2 2 # Bowel Movements 1 Laboratory Tests 04/28/18 05:52: White Blood Count 7.7, Red Blood Count 4.65L, Hemoglobin 14.5, Hematocrit 43.5, Mean Corpuscular Volume 93, Mean Corpuscular Hemoglobin 31.1H, Mean Corpuscular Hemoglobin Concent 33.3, Red Cell Distribution Width 12.4, Platelet Count 182, Mean Platelet Volume 8.3, Neutrophils (%) (Auto) 57.8, Lymphocytes (%) (Auto) 32.4, Monocytes (%) (Auto) 7.4, Eosinophils (%) (Auto) 1.2, Basophils (%) (Auto ) 1.2, Prothrombin Time 10.5, Prothromb Time International Ratio 1.0, Activated Partial Thromboplast Time 29, Sodium Level 140, Potassium Level 3.9, Chloride Level 104, Carbon Dioxide Level 27, Anion Gap 9, Blood Urea Nitrogen 14, Creatinine 1.2, Estimat Glomerular Filtration Rate > 60, Glucose Level 146H, Calcium Level 9.0 Height (Feet): 5 Height (Inches): 8.00 Weight (Pounds): 199 General Appearance: no apparent distress, alert Neurologic: oriented x 3, responsive, depressed affect Angelika Ley MD Apr 28, 2018 15:09
--- NOTE | 2018-04-28 15:15 | Internal Med Progress Note ---
Subjective Date of Service: Apr 28, 2018 Physician Name Leonardo Palencia Attending Physician Jaylen Lara MD Current Medications Medications (Trade) Dose Ordered Sig/Felipe Route PRN Reason Start Time Stop Time Status Last Admin Dose Admin Acetaminophen (Tylenol) 650 mg Q4H PRN ORAL FEVER (temp>100.5F) 04/24/18 18:00 05/24/18 17:59 04/24/18 23:40 Albuterol/ Ipratropium (Albuterol/ Ipratropium) 3 ml Q4H PRN HHN Shortness of Breath 04/24/18 18:00 04/29/18 17:59 Amlodipine Besylate (Norvasc) 5 mg DAILY ORAL 04/26/18 09:00 05/26/18 08:59 04/28/18 13:19 Aspirin (ASA) 162 mg DAILY ORAL 04/25/18 09:00 05/25/18 08:59 04/27/18 08:50 Atorvastatin Calcium (Lipitor) 20 mg BEDTIME ORAL 04/25/18 21:00 05/25/18 20:59 04/27/18 20:13 Colchicine (Colchicine) 0.6 mg DAILY ORAL 04/27/18 09:00 05/27/18 08:59 04/28/18 13:18 Diltiazem HCl (Cardizem) 10 mg EVERY HOUR PRN IV heart rate more than 120, 04/24/18 18:00 05/24/18 17:59 Docusate Sodium (Colace) 100 mg TWICE A DAY ORAL 04/27/18 12:00 05/27/18 11:59 04/28/18 13:18 Enalaprilat (Vasotec) 2.5 mg EVERY 6 HOURS PRN IV sbp more than 160 04/24/18 18:00 05/24/18 17:59 Fentanyl Citrate (Sublimaze 100 mcg/2 mL) 25 mcg Q10M PRN IV Moderate Pain (Pain Scale 4-6) 04/28/18 11:45 04/28/18 20:00 Heparin Sodium (Porcine) (Heparin 5000 units/ml) 5,000 units EVERY 12 HOURS SUBQ 04/24/18 21:00 05/24/18 20:59 04/27/18 08:52 Morphine Sulfate (Morphine Sulfate) 2 mg Q4H PRN IVP Moderate Pain (Pain Scale 4-6) 04/25/18 14:00 05/01/18 17:59 04/27/18 23:30 Morphine Sulfate (Morphine Sulfate) 4 mg Q4H PRN IVP Severe Pain (Pain Scale 7-10) 04/25/18 12:15 05/02/18 12:14 Nitroglycerin (Ntg) 0.4 mg Q5M PRN SL Prn Chest Pain 04/24/18 18:00 05/24/18 17:59 Ondansetron HCl (Zofran) 4 mg Q1H PRN IVP Nausea & Vomiting 04/28/18 11:45 04/28/18 20:00 Ondansetron HCl (Zofran) 4 mg Q6H PRN IVP Nausea & Vomiting 04/24/18 18:00 05/24/18 17:59 Polyethylene Glycol (Miralax) 17 gm DAILYPRN PRN ORAL Constipation 04/27/18 11:15 05/27/18 11:14 Regadenoson (Lexiscan) 0.4 mg ONCE PRN IV STRESS TEST 04/26/18 13:30 05/26/18 13:29 Tamsulosin HCl (Flomax) 0.4 mg BEDTIME ORAL 04/26/18 21:00 05/26/18 20:59 04/27/18 20:13 Temazepam (Restoril) 15 mg HSPRN PRN ORAL Insomnia 04/24/18 18:00 05/01/18 17:59 Allergies: Coded Allergies: No Known Allergies (Unverified , 10/27/12) ROS Limited/Unobtainable: No Constitutional: Reports: no symptoms HEENT: Reports: no symptoms Cardiovascular: Reports: chest pain Respiratory: Reports: no symptoms Gastrointestinal/Abdominal: Reports: no symptoms Genitourinary: Reports: no symptoms Neurologic/Psychiatric: Reports: no symptoms Subjective 72 YO M admitted with chest pain. S/P endoscopy 04/28/18. Cover for Lashawn Lara Objective Last Vital Signs Date Time Temp Pulse Resp B/P (MAP) Pulse Ox O2 Delivery O2 Flow Rate FiO2 04/28/18 14:06 207.7 68 20 98 04/28/18 13:19 121/79 04/28/18 12:55 Room Air 04/28/18 12:40 3 Laboratory Tests Test 04/28/18 05:52 White Blood Count 7.7 K/UL (4.8-10.8) Red Blood Count 4.65 M/UL (4.70-6.10) L Hemoglobin 14.5 G/DL (14.2-18.0) Hematocrit 43.5 % (42.0-52.0) Mean Corpuscular Volume 93 FL (80-99) Mean Corpuscular Hemoglobin 31.1 PG (27.0-31.0) H Mean Corpuscular Hemoglobin Concent 33.3 G/DL (32.0-36.0) Red Cell Distribution Width 12.4 % (11.6-14.8) Platelet Count 182 K/UL (150-450) Mean Platelet Volume 8.3 FL (6.5-10.1) Neutrophils (%) (Auto) 57.8 % (45.0-75.0) Lymphocytes (%) (Auto) 32.4 % (20.0-45.0) Monocytes (%) (Auto) 7.4 % (1.0-10.0) Eosinophils (%) (Auto) 1.2 % (0.0-3.0) Basophils (%) (Auto) 1.2 % (0.0-2.0) Prothrombin Time 10.5 SEC (9.30-11.50) Prothromb Time International Ratio 1.0 (0.9-1.1) Activated Partial Thromboplast Time 29 SEC (23-33) Sodium Level 140 MMOL/L (136-145) Potassium Level 3.9 MMOL/L (3.5-5.1) Chloride Level 104 MMOL/L (98-107) Carbon Dioxide Level 27 MMOL/L (21-32) Anion Gap 9 mmol/L (5-15) Blood Urea Nitrogen 14 mg/dL (7-18) Creatinine 1.2 MG/DL (0.55-1.30) Estimat Glomerular Filtration Rate > 60 mL/min (>60) Glucose Level 146 MG/DL (74-106) H Calcium Level 9.0 MG/DL (8.5-10.1) Intake and Output 04/27/18 04/28/18 19:00 07:00 Intake Total 240 ml Output Total 200 ml Balance 40 ml Intake Oral 240 ml Output Urine Total 200 ml # Voids 2 2 # Bowel Movements 1 Objective General Appearance: WD/WN, no apparent distress, alert EENT: PERRL/EOMI, normal ENT inspection Neck: non-tender, normal alignment, supple, normal inspection Cardiovascular: normal peripheral pulses, normal rate, regular rhythm, no gallop/murmur, no JVD Respiratory/Chest: chest wall non-tender, lungs clear, normal breath sounds, no respiratory distress, no accessory muscle use Abdomen: normal bowel sounds, non tender, soft, no organomegaly, no mass Extremities: normal range of motion, non-tender Edema: trace edema 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 ? costochondritis vs pericarditis? Start colchicine - see cardiology note. (4) HTN (hypertension) Assessment & Plan: continue norvasc (5) COPD (chronic obstructive pulmonary disease) (6) Hypercholesteremia Assessment & Plan: Continue lipitor (7) Renal cell carcinoma (8) Hepatitis C (9) BPH (benign prostatic hypertrophy) (10) DVT of leg (deep venous thrombosis) Assessment & Plan: On eliquis (11) Gastritis Assessment & Plan: S/P endoscopy 04/28/18. Start protonix. Status: progressing Leonardo Palencia MD Apr 28, 2018 15:15
[2018-04-28] MEDS ORDERED: PROTONIX40 MG ORAL (15:22)
[2018-04-28] MEDS ORDERED: COLCRYS0.6 M1 ORAL (15:22)
[2018-04-28] MEDS ORDERED: IBUPROFEN800 MG ORAL (15:22)
[2018-04-28] MEDS: Morphine Sulfate 2mg/ml Inj IVP PRN ×2 (15:26→20:30)
[2018-04-28] MEDS ORDERED: Lexiscan 0.4mg/5ml syringe IV ONE (16:30)
[2018-04-28] MEDS ORDERED: Nitroglycerin Subl 0.4mg tab SL PRN (16:35)
[2018-04-28] MEDS ORDERED: Morphine Sulfate 4mg/ml Inj IVP PRN (17:00)
[2018-04-28] MEDS ORDERED: Albuterol/Ipratropium 3ml neb HHN PRN (17:00)
[2018-04-28] MEDS ORDERED: Miralax 17gm pkt ORAL PRN (17:00)
[2018-04-28] MEDS ORDERED: Morphine Sulfate 2mg/ml Inj IVP PRN (17:00)
[2018-04-28] MEDS ORDERED: Enalaprilat 2.5mg/2ml Inj IV PRN (17:00)
[2018-04-28] MEDS ORDERED: dilTIAZem HCl 25mg/5ml Inj IV PRN (17:00)
[2018-04-28] MEDS: Tamsulosin 0.4mg cap ORAL SCH (21:54)
[2018-04-28] MEDS: Atorvastatin 20mg tab ORAL SCH (21:54)
[2018-04-29] VITALS: BP 118/66
[2018-04-29 04:00] VITALS: BP 118/77
[2018-04-29 07:27] LABS: BASOPHILS % (AUTO) 0.9 % (0.0-2.0); EOSINOPHILS % (AUTO) 1.4 % (0.0-3.0); HEMATOCRIT 43.8 % (42.0-52.0); HEMOGLOBIN 14.7 G/DL (14.2-18.0); LYMPHOCYTES % (AUTO) 36.2 % (20.0-45.0); MEAN CORPUSCULAR VOLUME 93 FL (80-99); NEUTROPHILS % (AUTO) 54.5 % (45.0-75.0); PLATELET COUNT 182 K/UL (150-450); RED CELL DISTRIBUTION WIDTH 12.4 % (11.6-14.8); WHITE BLOOD COUNT 6.7 K/UL (4.8-10.8)
--- NOTE | 2018-04-29 07:38 | Diagnostic Imaging Report ---
APPROVED REPORT CPT Code: 97502 Present Symptoms Comments: BILATERAL LEGS PAIN. BILATERAL: Imaging reveals a patent deep venous system bilaterally. There is no evidence of thrombus within the femoral, popliteal or tibial segments. The greater saphenous veins are also within normal limits. Doppler indicates normal spontaneous flow within these segments.
[2018-04-29 07:44] LABS: ANION GAP 8 mmol/L (5-15); BLOOD UREA NITROGEN 14 mg/dL (7-18); CALCIUM 9.4 MG/DL (8.5-10.1); CARBON DIOXIDE 29 MMOL/L (21-32); CHLORIDE 106 MMOL/L (98-107); CREATININE 1.2 MG/DL (0.55-1.30); POTASSIUM 4.2 MMOL/L (3.5-5.1); SODIUM 142 MMOL/L (136-145)
[2018-04-29 08:00] VITALS: BP 104/63
[2018-04-29] MEDS: Aspirin Baby 81mg ORAL SCH (08:59)
[2018-04-29] MEDS: Docusate 100mg cap ORAL SCH ×3 (08:59→17:55)
[2018-04-29] MEDS: Heparin 5000 units/ml inj SUBQ SCH ×2 (09:03→21:18)
--- NOTE | 2018-04-29 11:59 | GI Progress Note ---
Assessment/Plan Problems: (1) Epigastric abdominal pain ICD Codes: R10.13 - Epigastric pain SNOMED: 34646696 (2) Abdominal pain ICD Codes: R10.9 - Unspecified abdominal pain SNOMED: 30513615 (3) Chest pain of uncertain etiology ICD Codes: R07.89 - Other chest pain SNOMED: 84341730 (4) Hepatitis C ICD Codes: B19.20 - Unspecified viral hepatitis C without hepatic coma SNOMED: 98343619 (5) Abdominal pain ICD Codes: R10.9 - Unspecified abdominal pain SNOMED: 28017972 Status: stable Status Narrative Discussed with Dr. Hurtado. Assessment/Plan SUMMARY OF FINDINGS: 1. Multiple antral erosions. 2. Gastritis, status post biopsy. 3. Duodenitis. RECOMMENDATIONS: okay for DC per GI standpoint Follow up biopsy results and treat accordingly. ppi The patient needs outpatient followup for colonoscopy. The patient was seen and examined at bedside and all new and available data was reviewed in the patients chart. I agree with the above findings, impression and plan. (Patient seen earlier today. Signature stamp does not reflect patient encounter time.). - Clemente Hurtado MD Subjective Gastrointestinal/Abdominal: Reports: no symptoms Objective Last 24 Hour Vital Signs Date Time Temp Pulse Resp B/P (MAP) Pulse Ox O2 Delivery O2 Flow Rate FiO2 04/29/18 09:00 68 104/63 04/29/18 09:00 Room Air 04/29/18 08:00 97.7 68 20 104/63 (77) 97 97.7 04/29/18 04:00 97.6 60 19 118/77 (91) 95 97.6 04/29/18 00:00 98.1 72 20 118/66 (83) 94 98.1 04/28/18 21:00 Room Air 04/28/18 20:00 62 18 Room Air 21 04/28/18 20:00 97.5 69 20 120/77 (91) 96 97.5 04/28/18 19:08 96.6 04/28/18 16:50 96.6 68 18 122/77 (92) 96 96.6 04/28/18 15:56 97.6 04/28/18 15:26 97.6 04/28/18 14:06 207.7 68 20 98 04/28/18 13:19 74 121/79 04/28/18 12:55 97.2 74 20 121/79 96 Room Air 97.2 04/28/18 12:40 72 22 122/79 95 Nasal Cannula 3 04/28/18 12:35 69 19 117/76 95 Nasal Cannula 3 04/28/18 12:34 207.5 67 20 98 04/28/18 12:30 67 21 115/75 96 Nasal Cannula 3 04/28/18 12:26 97.4 70 20 120/75 97 Nasal Cannula 3 97.4 Intake and Output 04/28/18 04/29/18 19:00 07:00 Intake Total 570 ml Output Total 500 ml Balance 70 ml Intake Oral 120 ml IV Total 450 ml Output Urine Total 500 ml Estimated Blood Loss 0 ml # Voids 2 4 # Bowel Movements 2 1 Laboratory Tests Test 04/29/18 06:15 White Blood Count 6.7 K/UL (4.8-10.8) Red Blood Count 4.70 M/UL (4.70-6.10) Hemoglobin 14.7 G/DL (14.2-18.0) Hematocrit 43.8 % (42.0-52.0) Mean Corpuscular Volume 93 FL (80-99) Mean Corpuscular Hemoglobin 31.3 PG (27.0-31.0) H Mean Corpuscular Hemoglobin Concent 33.6 G/DL (32.0-36.0) Red Cell Distribution Width 12.4 % (11.6-14.8) Platelet Count 182 K/UL (150-450) Mean Platelet Volume 8.3 FL (6.5-10.1) Neutrophils (%) (Auto) 54.5 % (45.0-75.0) Lymphocytes (%) (Auto) 36.2 % (20.0-45.0) Monocytes (%) (Auto) 7.0 % (1.0-10.0) Eosinophils (%) (Auto) 1.4 % (0.0-3.0) Basophils (%) (Auto) 0.9 % (0.0-2.0) Sodium Level 142 MMOL/L (136-145) Potassium Level 4.2 MMOL/L (3.5-5.1) Chloride Level 106 MMOL/L (98-107) Carbon Dioxide Level 29 MMOL/L (21-32) Anion Gap 8 mmol/L (5-15) Blood Urea Nitrogen 14 mg/dL (7-18) Creatinine 1.2 MG/DL (0.55-1.30) Estimat Glomerular Filtration Rate > 60 mL/min (>60) Glucose Level 126 MG/DL (74-106) H Calcium Level 9.4 MG/DL (8.5-10.1) Height (Feet): 5 Height (Inches): 8.00 Weight (Pounds): 204 General Appearance: WD/WN, no apparent distress, alert Cardiovascular: normal rate Respiratory/Chest: normal breath sounds, no respiratory distress Abdominal Exam: normal bowel sounds, non tender, soft Extremities: normal range of motion, non-tender Glen Shook NP Apr 29, 2018 11:59
[2018-04-29 12:00] VITALS: BP 99/62
--- NOTE | 2018-04-29 12:36 | Internal Med Progress Note ---
Subjective Date of Service: Apr 29, 2018 Physician Name Leonardo Palencia Attending Physician Jaylen Lara MD Current Medications Medications (Trade) Dose Ordered Sig/Felipe Route PRN Reason Start Time Stop Time Status Last Admin Dose Admin Acetaminophen (Tylenol) 650 mg Q4H PRN ORAL FEVER (temp>100.5F) 04/28/18 17:00 05/24/18 16:59 Albuterol/ Ipratropium (Albuterol/ Ipratropium) 3 ml Q4H PRN HHN Shortness of Breath 04/28/18 17:00 04/29/18 16:59 Amlodipine Besylate (Norvasc) 5 mg DAILY ORAL 04/29/18 09:00 05/26/18 08:59 Aspirin (ASA) 162 mg DAILY ORAL 04/29/18 09:00 05/25/18 08:59 04/29/18 08:59 Atorvastatin Calcium (Lipitor) 20 mg BEDTIME ORAL 04/28/18 21:00 05/25/18 20:59 04/28/18 21:54 Colchicine (Colchicine) 0.6 mg DAILY ORAL 04/29/18 09:00 05/27/18 08:59 04/29/18 08:58 Docusate Sodium (Colace) 100 mg TWICE A DAY ORAL 04/28/18 18:00 05/27/18 11:59 04/28/18 17:55 Enalaprilat (Vasotec) 2.5 mg Q6H PRN IV sbp more than 160 04/28/18 17:00 05/28/18 16:59 Heparin Sodium (Porcine) (Heparin 5000 units/ml) 5,000 units EVERY 12 HOURS SUBQ 04/28/18 21:00 05/24/18 20:59 04/29/18 09:03 Ibuprofen (Motrin) 600 mg THREE TIMES A DAY ORAL 04/28/18 18:00 05/28/18 17:59 04/29/18 08:59 Morphine Sulfate (Morphine Sulfate) 2 mg Q4H PRN IVP Moderate Pain (Pain Scale 4-6) 04/28/18 19:30 05/05/18 19:29 04/28/18 20:30 Morphine Sulfate (Morphine Sulfate) 4 mg Q4H PRN IVP Severe Pain (Pain Scale 7-10) 04/28/18 17:00 05/02/18 16:59 Nitroglycerin (Ntg) 0.4 mg Q5M PRN SL Prn Chest Pain 04/28/18 16:35 05/24/18 17:59 Ondansetron HCl (Zofran) 4 mg Q6H PRN IVP Nausea & Vomiting 04/28/18 17:00 05/24/18 16:59 Pantoprazole (Protonix) 40 mg DAILY ORAL 04/29/18 09:00 05/28/18 15:29 04/29/18 08:58 Polyethylene Glycol (Miralax) 17 gm DAILYPRN PRN ORAL Constipation 04/28/18 17:00 05/28/18 16:59 Tamsulosin HCl (Flomax) 0.4 mg BEDTIME ORAL 04/28/18 21:00 05/26/18 20:59 04/28/18 21:54 Temazepam (Restoril) 15 mg HSPRN PRN ORAL Insomnia 04/28/18 18:00 05/01/18 17:59 Allergies: Coded Allergies: No Known Allergies (Unverified , 10/27/12) ROS Limited/Unobtainable: No Constitutional: Reports: no symptoms HEENT: Reports: no symptoms Cardiovascular: Reports: chest pain Respiratory: Reports: shortness of breath Gastrointestinal/Abdominal: Reports: no symptoms Genitourinary: Reports: no symptoms Neurologic/Psychiatric: Reports: no symptoms Subjective 72 YO M admitted with chest pain. S/P endoscopy 04/28/18. Cover for Int isak-Dr Lara Objective Last Vital Signs Date Time Temp Pulse Resp B/P (MAP) Pulse Ox O2 Delivery O2 Flow Rate FiO2 04/29/18 12:00 98.1 66 21 99/62 (74) 95 98.1 04/29/18 09:00 Room Air 04/28/18 20:00 21 04/28/18 12:40 3 Laboratory Tests Test 04/29/18 06:15 White Blood Count 6.7 K/UL (4.8-10.8) Red Blood Count 4.70 M/UL (4.70-6.10) Hemoglobin 14.7 G/DL (14.2-18.0) Hematocrit 43.8 % (42.0-52.0) Mean Corpuscular Volume 93 FL (80-99) Mean Corpuscular Hemoglobin 31.3 PG (27.0-31.0) H Mean Corpuscular Hemoglobin Concent 33.6 G/DL (32.0-36.0) Red Cell Distribution Width 12.4 % (11.6-14.8) Platelet Count 182 K/UL (150-450) Mean Platelet Volume 8.3 FL (6.5-10.1) Neutrophils (%) (Auto) 54.5 % (45.0-75.0) Lymphocytes (%) (Auto) 36.2 % (20.0-45.0) Monocytes (%) (Auto) 7.0 % (1.0-10.0) Eosinophils (%) (Auto) 1.4 % (0.0-3.0) Basophils (%) (Auto) 0.9 % (0.0-2.0) Sodium Level 142 MMOL/L (136-145) Potassium Level 4.2 MMOL/L (3.5-5.1) Chloride Level 106 MMOL/L (98-107) Carbon Dioxide Level 29 MMOL/L (21-32) Anion Gap 8 mmol/L (5-15) Blood Urea Nitrogen 14 mg/dL (7-18) Creatinine 1.2 MG/DL (0.55-1.30) Estimat Glomerular Filtration Rate > 60 mL/min (>60) Glucose Level 126 MG/DL (74-106) H Calcium Level 9.4 MG/DL (8.5-10.1) Intake and Output 04/28/18 04/29/18 19:00 07:00 Intake Total 570 ml Output Total 500 ml Balance 70 ml Intake Oral 120 ml IV Total 450 ml Output Urine Total 500 ml Estimated Blood Loss 0 ml # Voids 2 4 # Bowel Movements 2 1 Objective General Appearance: WD/WN, no apparent distress, alert EENT: PERRL/EOMI, normal ENT inspection Neck: non-tender, normal alignment, supple, normal inspection Cardiovascular: normal peripheral pulses, normal rate, regular rhythm, no gallop/murmur, no JVD Respiratory/Chest: chest wall non-tender, lungs clear, normal breath sounds, no respiratory distress, no accessory muscle use Abdomen: normal bowel sounds, non tender, soft, no organomegaly, no mass Extremities: normal range of motion, non-tender Edema: trace edema 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 ? costochondritis vs pericarditis? Start colchicine - see cardiology note. (4) HTN (hypertension) Assessment & Plan: continue norvasc (5) COPD (chronic obstructive pulmonary disease) (6) Hypercholesteremia Assessment & Plan: Continue lipitor (7) Renal cell carcinoma (8) Hepatitis C (9) BPH (benign prostatic hypertrophy) (10) DVT of leg (deep venous thrombosis) Assessment & Plan: On eliquis (11) Gastritis Assessment & Plan: S/P endoscopy 04/28/18. Start protonix. Status: stable Leonardo Palencia MD Apr 29, 2018 12:36
[2018-04-29] MEDS: Morphine Sulfate 2mg/ml Inj IVP PRN (12:53)
--- NOTE | 2018-04-29 13:09 | Pulmonology Progress Note ---
Assessment/Plan Problems: (1) Costochondritis (2) Chest pain of uncertain etiology (3) Deep vein thrombosis (DVT) of left lower extremity (4) Hepatitis C (5) COPD (chronic obstructive pulmonary disease) (6) Renal cell carcinoma Assessment/Plan thoradol for chest pain times one symptomatic treatment check troponin check electrolytes f/u cardio recommendations stress test, last part pending dc home today Subjective ROS Limited/Unobtainable: No Constitutional: Reports: no symptoms Respiratory: Reports: no symptoms Allergies: Coded Allergies: No Known Allergies (Unverified , 10/27/12) Objective Last 24 Hour Vital Signs Date Time Temp Pulse Resp B/P (MAP) Pulse Ox O2 Delivery O2 Flow Rate FiO2 04/29/18 12:00 98.1 66 21 99/62 (74) 95 98.1 04/29/18 09:00 68 104/63 04/29/18 09:00 Room Air 04/29/18 08:00 97.7 68 20 104/63 (77) 97 97.7 04/29/18 04:00 97.6 60 19 118/77 (91) 95 97.6 04/29/18 00:00 98.1 72 20 118/66 (83) 94 98.1 04/28/18 21:00 Room Air 04/28/18 20:00 62 18 Room Air 21 04/28/18 20:00 97.5 69 20 120/77 (91) 96 97.5 04/28/18 19:08 96.6 04/28/18 16:50 96.6 68 18 122/77 (92) 96 96.6 04/28/18 15:56 97.6 04/28/18 15:26 97.6 04/28/18 14:06 207.7 68 20 98 04/28/18 13:19 74 121/79 Intake and Output 04/28/18 04/29/18 19:00 07:00 Intake Total 570 ml Output Total 500 ml Balance 70 ml Intake Oral 120 ml IV Total 450 ml Output Urine Total 500 ml Estimated Blood Loss 0 ml # Voids 2 4 # Bowel Movements 2 1 General Appearance: WD/WN HEENT: normocephalic, atraumatic Respiratory/Chest: chest wall non-tender, lungs clear Abdomen: soft, non tender, no organomegaly Skin: no rash Laboratory Tests 04/29/18 06:15: White Blood Count 6.7, Red Blood Count 4.70, Hemoglobin 14.7, Hematocrit 43.8, Mean Corpuscular Volume 93, Mean Corpuscular Hemoglobin 31.3H, Mean Corpuscular Hemoglobin Concent 33.6, Red Cell Distribution Width 12.4, Platelet Count 182, Mean Platelet Volume 8.3, Neutrophils (%) (Auto) 54.5, Lymphocytes (%) (Auto) 36.2, Monocytes (%) (Auto) 7.0, Eosinophils (%) (Auto) 1.4, Basophils (%) (Auto ) 0.9, Sodium Level 142, Potassium Level 4.2, Chloride Level 106, Carbon Dioxide Level 29, Anion Gap 8, Blood Urea Nitrogen 14, Creatinine 1.2, Estimat Glomerular Filtration Rate > 60, Glucose Level 126H, Calcium Level 9.4 Current Medications Medications (Trade) Dose Ordered Sig/Felipe Route PRN Reason Start Time Stop Time Status Last Admin Dose Admin Acetaminophen (Tylenol) 650 mg Q4H PRN ORAL FEVER (temp>100.5F) 04/28/18 17:00 05/24/18 16:59 Albuterol/ Ipratropium (Albuterol/ Ipratropium) 3 ml Q4H PRN HHN Shortness of Breath 04/28/18 17:00 04/29/18 16:59 Amlodipine Besylate (Norvasc) 5 mg DAILY ORAL 04/29/18 09:00 05/26/18 08:59 Aspirin (ASA) 162 mg DAILY ORAL 04/29/18 09:00 05/25/18 08:59 04/29/18 08:59 Atorvastatin Calcium (Lipitor) 20 mg BEDTIME ORAL 04/28/18 21:00 05/25/18 20:59 04/28/18 21:54 Colchicine (Colchicine) 0.6 mg DAILY ORAL 04/29/18 09:00 05/27/18 08:59 04/29/18 08:58 Docusate Sodium (Colace) 100 mg TWICE A DAY ORAL 04/28/18 18:00 05/27/18 11:59 04/28/18 17:55 Enalaprilat (Vasotec) 2.5 mg Q6H PRN IV sbp more than 160 04/28/18 17:00 05/28/18 16:59 Heparin Sodium (Porcine) (Heparin 5000 units/ml) 5,000 units EVERY 12 HOURS SUBQ 04/28/18 21:00 05/24/18 20:59 04/29/18 09:03 Ibuprofen (Motrin) 600 mg THREE TIMES A DAY ORAL 04/28/18 18:00 05/28/18 17:59 04/29/18 08:59 Ketorolac Tromethamine (Toradol 30mg) 30 mg ONCE ONCE IV 04/29/18 13:15 04/29/18 13:16 UNV Morphine Sulfate (Morphine Sulfate) 2 mg Q4H PRN IVP Moderate Pain (Pain Scale 4-6) 04/28/18 19:30 05/05/18 19:29 04/29/18 12:53 Morphine Sulfate (Morphine Sulfate) 4 mg Q4H PRN IVP Severe Pain (Pain Scale 7-10) 04/28/18 17:00 05/02/18 16:59 Nitroglycerin (Ntg) 0.4 mg Q5M PRN SL Prn Chest Pain 04/28/18 16:35 05/24/18 17:59 Ondansetron HCl (Zofran) 4 mg Q6H PRN IVP Nausea & Vomiting 04/28/18 17:00 05/24/18 16:59 Pantoprazole (Protonix) 40 mg DAILY ORAL 04/29/18 09:00 05/28/18 15:29 04/29/18 08:58 Polyethylene Glycol (Miralax) 17 gm DAILYPRN PRN ORAL Constipation 04/28/18 17:00 05/28/18 16:59 Tamsulosin HCl (Flomax) 0.4 mg BEDTIME ORAL 04/28/18 21:00 05/26/18 20:59 04/28/18 21:54 Temazepam (Restoril) 15 mg HSPRN PRN ORAL Insomnia 04/28/18 18:00 05/01/18 17:59 Susy Morse MD Apr 29, 2018 13:09
[2018-04-29] MEDS ORDERED: Ketorolac 30mg Inj IV SCH (13:30)
--- NOTE | 2018-04-29 14:31 | Cardiology Progress Note ---
Assessment/Plan Status: stable Assessment/Plan Assessment Chest pain DVT BPH HTN Asthma/COPD Hepatitis C Plan: CRP negative Clinical suspicion of chostochondritis, chest pain is non cardiac - continue colcicine for 1-2 weeks, add 800 mg Ibuprofen TID for 1 - 2 week Serial EKG/Troponin - non ischemic Aspirin for primary prevention Statin for HLD No indication for cardiac cath or heparin at this time Echocardiogram reviewed, normal LV function Stress test non ischemia Ok to discharge home with 1-2 week outpatient follow up Subjective Cardiovascular: Reports: chest pain Respiratory: Reports: no symptoms Gastrointestinal/Abdominal: Reports: no symptoms Genitourinary: Reports: no symptoms Subjective No acute events, vitals stable, troponin negative. Patient had stress test yesterday, awaiting results Echo with normal LV function, Abdominal US with no pathology S/p Endoscopy with biopsy Objective Last 24 Hour Vital Signs Date Time Temp Pulse Resp B/P (MAP) Pulse Ox O2 Delivery O2 Flow Rate FiO2 04/29/18 12:00 98.1 66 21 99/62 (74) 95 98.1 04/29/18 09:00 68 104/63 04/29/18 09:00 Room Air 04/29/18 08:00 97.7 68 20 104/63 (77) 97 97.7 04/29/18 04:00 97.6 60 19 118/77 (91) 95 97.6 04/29/18 00:00 98.1 72 20 118/66 (83) 94 98.1 04/28/18 21:00 Room Air 04/28/18 20:00 62 18 Room Air 21 04/28/18 20:00 97.5 69 20 120/77 (91) 96 97.5 04/28/18 19:08 96.6 04/28/18 16:50 96.6 68 18 122/77 (92) 96 96.6 04/28/18 15:56 97.6 04/28/18 15:26 97.6 General Appearance: no apparent distress EENT: PERRL/EOMI Neck: non-tender Rhythm: NSR Cardiovascular: normal peripheral pulses Respiratory/Chest: chest wall non-tender Abdomen: normal bowel sounds Extremities: normal range of motion Neurologic: surgical processor II-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6-14.8) Platelet Count 182 K/UL (150-450) Mean Platelet Volume 8.3 FL (6.5-10.1) Neutrophils (%) (Auto) 54.5 % (45.0-75.0) Lymphocytes (%) (Auto) 36.2 % (20.0-45.0) Monocytes (%) (Auto) 7.0 % (1.0-10.0) Eosinophils (%) (Auto) 1.4 % (0.0-3.0) Basophils (%) (Auto) 0.9 % (0.0-2.0) Sodium Level 142 MMOL/L (136-145) Potassium Level 4.2 MMOL/L (3.5-5.1) Chloride Level 106 MMOL/L (98-107) Carbon Dioxide Level 29 MMOL/L (21-32) Anion Gap 8 mmol/L (5-15) Blood Urea Nitrogen 14 mg/dL (7-18) Creatinine 1.2 MG/DL (0.55-1.30) Estimat Glomerular Filtration Rate > 60 mL/min (>60) Glucose Level 126 MG/DL (74-106) H Calcium Level 9.4 MG/DL (8.5-10.1) Talib Lagos M.D. Apr 29, 2018 14:31
--- NOTE | 2018-04-29 15:17 | General Progress Note ---
Assessment/Plan Status: stable, progressing Assessment/Plan Anxiety d/o Insomnia Restoril prn provided ro/st Subjective Date patient seen: Apr 29, 2018 Neurologic/Psychiatric: Reports: anxiety, depressed Allergies: Coded Allergies: No Known Allergies (Unverified , 10/27/12) Subjective the pt refusing to leave and for muscle spasm Objective Last 24 Hour Vital Signs Date Time Temp Pulse Resp B/P (MAP) Pulse Ox O2 Delivery O2 Flow Rate FiO2 04/29/18 12:00 98.1 66 21 99/62 (74) 95 98.1 04/29/18 09:51 60 18 Room Air 21 04/29/18 09:00 68 104/63 04/29/18 09:00 Room Air 04/29/18 08:00 97.7 68 20 104/63 (77) 97 97.7 04/29/18 04:00 97.6 60 19 118/77 (91) 95 97.6 04/29/18 00:00 98.1 72 20 118/66 (83) 94 98.1 04/28/18 21:00 Room Air 04/28/18 20:00 62 18 Room Air 21 04/28/18 20:00 97.5 69 20 120/77 (91) 96 97.5 04/28/18 19:08 96.6 04/28/18 16:50 96.6 68 18 122/77 (92) 96 96.6 04/28/18 15:56 97.6 04/28/18 15:26 97.6 Intake and Output 04/28/18 04/29/18 19:00 07:00 Intake Total 570 ml Output Total 500 ml Balance 70 ml Intake Oral 120 ml IV Total 450 ml Output Urine Total 500 ml Estimated Blood Loss 0 ml # Voids 2 4 # Bowel Movements 2 1 Laboratory Tests 04/29/18 06:15: White Blood Count 6.7, Red Blood Count 4.70, Hemoglobin 14.7, Hematocrit 43.8, Mean Corpuscular Volume 93, Mean Corpuscular Hemoglobin 31.3H, Mean Corpuscular Hemoglobin Concent 33.6, Red Cell Distribution Width 12.4, Platelet Count 182, Mean Platelet Volume 8.3, Neutrophils (%) (Auto) 54.5, Lymphocytes (%) (Auto) 36.2, Monocytes (%) (Auto) 7.0, Eosinophils (%) (Auto) 1.4, Basophils (%) (Auto ) 0.9, Sodium Level 142, Potassium Level 4.2, Chloride Level 106, Carbon Dioxide Level 29, Anion Gap 8, Blood Urea Nitrogen 14, Creatinine 1.2, Estimat Glomerular Filtration Rate > 60, Glucose Level 126H, Calcium Level 9.4 Height (Feet): 5 Height (Inches): 8.00 Weight (Pounds): 204 General Appearance: no apparent distress, alert Neurologic: alert, oriented x 3, responsive, depressed affect Angelika Ley MD Apr 29, 2018 15:17
[2018-04-29 16:00] VITALS: BP 116/77
[2018-04-29 17:02] LABS: ANION GAP 8 mmol/L (5-15); BLOOD UREA NITROGEN 16 mg/dL (7-18); CALCIUM 9.2 MG/DL (8.5-10.1); CARBON DIOXIDE 28 MMOL/L (21-32); CHLORIDE 106 MMOL/L (98-107); CREATININE 1.3 MG/DL (0.55-1.30); POTASSIUM 4.3 MMOL/L (3.5-5.1); SODIUM 142 MMOL/L (136-145)
[2018-04-29 20:00] VITALS: BP 115/66
[2018-04-29] MEDS: Tamsulosin 0.4mg cap ORAL SCH (21:14)
[2018-04-29] MEDS: Atorvastatin 20mg tab ORAL SCH (21:14)
[2018-04-30] VITALS: BP 117/68
[2018-04-30 04:00] VITALS: BP 103/66
[2018-04-30 06:37] LABS: BASOPHILS % (AUTO) 0.8 % (0.0-2.0); EOSINOPHILS % (AUTO) 1.4 % (0.0-3.0); LYMPHOCYTES % (AUTO) 37.2 % (20.0-45.0); MEAN CORPUSCULAR VOLUME 93 FL (80-99); MONOCYTES % (AUTO) 6.6 % (1.0-10.0); PLATELET COUNT 190 K/UL (150-450); RED BLOOD COUNT 4.51 M/UL (4.70-6.10); RED CELL DISTRIBUTION WIDTH 12.5 % (11.6-14.8); WHITE BLOOD COUNT 6.3 K/UL (4.8-10.8)
[2018-04-30 08:00] VITALS: BP 105/69
[2018-04-30] MEDS: Docusate 100mg cap ORAL SCH (09:48)
[2018-04-30] MEDS: Aspirin Baby 81mg ORAL SCH (09:49)
[2018-04-30] MEDS: Heparin 5000 units/ml inj SUBQ SCH (09:50)
[2018-04-30 12:00] VITALS: BP 114/69
[2018-04-30] MEDS ORDERED: LR 1000ml ONE (12:59)
[2018-04-30 13:04] VITALS: BP 114/73
--- NOTE | 2018-04-30 13:54 | Pulmonology Progress Note ---
Assessment/Plan Problems: (1) Costochondritis (2) Chest pain of uncertain etiology (3) Deep vein thrombosis (DVT) of left lower extremity (4) Hepatitis C (5) COPD (chronic obstructive pulmonary disease) (6) Renal cell carcinoma Assessment/Plan no new complains, pt agreed to go home symptomatic treatment check troponin check electrolytes f/u cardio recommendations stress test, last part pending dc home today Subjective ROS Limited/Unobtainable: No HEENT: Repors: no symptoms Allergies: Coded Allergies: No Known Allergies (Unverified , 10/27/12) Objective Last 24 Hour Vital Signs Date Time Temp Pulse Resp B/P (MAP) Pulse Ox O2 Delivery O2 Flow Rate FiO2 04/30/18 13:04 97.3 68 16 114/73 (87) 94 97.3 04/30/18 12:00 97.3 67 16 114/69 (84) 94 97.3 04/30/18 09:49 68 105/69 04/30/18 09:45 68 18 Room Air 21 04/30/18 09:00 Room Air 04/30/18 08:00 97.9 68 16 105/69 (81) 94 97.9 04/30/18 04:00 98.2 63 16 103/66 (78) 94 98.2 04/30/18 00:00 98.2 64 18 117/68 (84) 95 98.2 04/29/18 21:00 Room Air 04/29/18 20:33 73 18 Room Air 21 04/29/18 20:00 98.1 72 20 115/66 (82) 96 98.1 04/29/18 16:00 97.4 71 22 116/77 (90) 95 97.4 Intake and Output 04/29/18 04/30/18 19:00 07:00 Intake Total 720 ml Balance 720 ml Intake Oral 720 ml # Voids 2 General Appearance: WD/WN HEENT: atraumatic, anicteric Respiratory/Chest: chest wall non-tender, lungs clear Cardiovascular: normal peripheral pulses, normal rate Abdomen: normal bowel sounds, soft, non tender Genitourinary: normal external genitalia Extremities: no clubbing Neurologic/Psychiatric: rn mental health II-XII grossly normal Laboratory Tests 04/29/18 16:20: Sodium Level 142, Potassium Level 4.3, Chloride Level 106, Carbon Dioxide Level 28, Anion Gap 8, Blood Urea Nitrogen 16, Creatinine 1.3, Estimat Glomerular Filtration Rate > 60, Glucose Level 104, Calcium Level 9.2 04/30/18 05:20: White Blood Count 6.3, Red Blood Count 4.51L, Hemoglobin 14.0L, Hematocrit 42.0 , Mean Corpuscular Volume 93, Mean Corpuscular Hemoglobin 31.0, Mean Corpuscular Hemoglobin Concent 33.2, Red Cell Distribution Width 12.5, Platelet Count 190, Mean Platelet Volume 8.1, Neutrophils (%) (Auto) 54.0, Lymphocytes (% ) (Auto) 37.2, Monocytes (%) (Auto) 6.6, Eosinophils (%) (Auto) 1.4, Basophils ( %) (Auto) 0.8 Current Medications Medications (Trade) Dose Ordered Sig/Felipe Route PRN Reason Start Time Stop Time Status Last Admin Dose Admin Acetaminophen (Tylenol) 650 mg Q4H PRN ORAL FEVER (temp>100.5F) 04/28/18 17:00 05/24/18 16:59 04/30/18 09:50 Amlodipine Besylate (Norvasc) 5 mg DAILY ORAL 04/29/18 09:00 05/26/18 08:59 04/30/18 09:49 Aspirin (ASA) 162 mg DAILY ORAL 04/29/18 09:00 05/25/18 08:59 04/30/18 09:49 Atorvastatin Calcium (Lipitor) 20 mg BEDTIME ORAL 04/28/18 21:00 05/25/18 20:59 04/29/18 21:14 Colchicine (Colchicine) 0.6 mg DAILY ORAL 04/29/18 09:00 05/27/18 08:59 04/30/18 09:49 Docusate Sodium (Colace) 100 mg TWICE A DAY ORAL 04/28/18 18:00 05/27/18 11:59 04/30/18 09:48 Enalaprilat (Vasotec) 2.5 mg Q6H PRN IV sbp more than 160 04/28/18 17:00 05/28/18 16:59 Heparin Sodium (Porcine) (Heparin 5000 units/ml) 5,000 units EVERY 12 HOURS SUBQ 04/28/18 21:00 05/24/18 20:59 7/26/18 09:50 Ibuprofen (Motrin) 600 mg THREE TIMES A DAY ORAL 04/28/18 18:00 05/28/18 17:59 04/30/18 09:49 Nitroglycerin (Ntg) 0.4 mg Q5M PRN SL Prn Chest Pain 04/28/18 16:35 05/24/18 17:59 Ondansetron HCl (Zofran) 4 mg Q6H PRN IVP Nausea & Vomiting 04/28/18 17:00 05/24/18 16:59 Pantoprazole (Protonix) 40 mg DAILY ORAL 04/29/18 09:00 05/28/18 15:29 04/30/18 09:49 Polyethylene Glycol (Miralax) 17 gm DAILYPRN PRN ORAL Constipation 04/28/18 17:00 05/28/18 16:59 Tamsulosin HCl (Flomax) 0.4 mg BEDTIME ORAL 04/28/18 21:00 05/26/18 20:59 04/29/18 21:14 Temazepam (Restoril) 15 mg HSPRN PRN ORAL Insomnia 04/28/18 18:00 05/01/18 17:59 Susy Morse MD Apr 30, 2018 13:54
--- NOTE | 2018-04-30 14:03 | General Progress Note ---
Assessment/Plan Status: stable Assessment/Plan Anxiety d/o Insomnia Restoril prn provided ro/st Subjective Date patient seen: Apr 30, 2018 Neurologic/Psychiatric: Reports: anxiety, depressed, emotional problems Allergies: Coded Allergies: No Known Allergies (Unverified , 10/27/12) Subjective the pt agrees that he has underlying anxiety and depression however adamant against taking psychotropics Objective Last 24 Hour Vital Signs Date Time Temp Pulse Resp B/P (MAP) Pulse Ox O2 Delivery O2 Flow Rate FiO2 04/30/18 13:04 97.3 68 16 114/73 (87) 94 97.3 04/30/18 12:00 97.3 67 16 114/69 (84) 94 97.3 04/30/18 09:49 68 105/69 04/30/18 09:45 68 18 Room Air 21 04/30/18 09:00 Room Air 04/30/18 08:00 97.9 68 16 105/69 (81) 94 97.9 04/30/18 04:00 98.2 63 16 103/66 (78) 94 98.2 04/30/18 00:00 98.2 64 18 117/68 (84) 95 98.2 04/29/18 21:00 Room Air 04/29/18 20:33 73 18 Room Air 21 04/29/18 20:00 98.1 72 20 115/66 (82) 96 98.1 04/29/18 16:00 97.4 71 22 116/77 (90) 95 97.4 Intake and Output 04/29/18 04/30/18 19:00 07:00 Intake Total 720 ml Balance 720 ml Intake Oral 720 ml # Voids 2 Laboratory Tests 04/29/18 16:20: Sodium Level 142, Potassium Level 4.3, Chloride Level 106, Carbon Dioxide Level 28, Anion Gap 8, Blood Urea Nitrogen 16, Creatinine 1.3, Estimat Glomerular Filtration Rate > 60, Glucose Level 104, Calcium Level 9.2 04/30/18 05:20: White Blood Count 6.3, Red Blood Count 4.51L, Hemoglobin 14.0L, Hematocrit 42.0 , Mean Corpuscular Volume 93, Mean Corpuscular Hemoglobin 31.0, Mean Corpuscular Hemoglobin Concent 33.2, Red Cell Distribution Width 12.5, Platelet Count 190, Mean Platelet Volume 8.1, Neutrophils (%) (Auto) 54.0, Lymphocytes (% ) (Auto) 37.2, Monocytes (%) (Auto) 6.6, Eosinophils (%) (Auto) 1.4, Basophils ( %) (Auto) 0.8 Height (Feet): 5 Height (Inches): 8.00 Weight (Pounds): 204 General Appearance: no apparent distress, alert Neurologic: oriented x 3, responsive, depressed affect Angelika Ley MD Apr 30, 2018 14:03
--- NOTE | 2018-04-30 14:27 | GI Progress Note ---
Assessment/Plan Problems: (1) Epigastric abdominal pain ICD Codes: R10.13 - Epigastric pain SNOMED: 34156063 (2) Abdominal pain ICD Codes: R10.9 - Unspecified abdominal pain SNOMED: 95362311 (3) Chest pain of uncertain etiology ICD Codes: R07.89 - Other chest pain SNOMED: 77805488 (4) Hepatitis C ICD Codes: B19.20 - Unspecified viral hepatitis C without hepatic coma SNOMED: 06138363 (5) Abdominal pain ICD Codes: R10.9 - Unspecified abdominal pain SNOMED: 62241098 Status: stable Status Narrative Discussed with Dr. Hurtado. Assessment/Plan SUMMARY OF FINDINGS: 1. Multiple antral erosions. 2. Gastritis, status post biopsy. 3. Duodenitis. RECOMMENDATIONS: okay for DC per GI standpoint Follow up biopsy results and treat accordingly. ppi The patient needs outpatient followup for colonoscopy. The patient was seen and examined at bedside and all new and available data was reviewed in the patients chart. I agree with the above findings, impression and plan. (Patient seen earlier today. Signature stamp does not reflect patient encounter time.). - Clemente Hurtado MD Subjective Gastrointestinal/Abdominal: Reports: no symptoms Objective Last 24 Hour Vital Signs Date Time Temp Pulse Resp B/P (MAP) Pulse Ox O2 Delivery O2 Flow Rate FiO2 04/30/18 13:04 97.3 68 16 114/73 (87) 94 97.3 04/30/18 12:00 97.3 67 16 114/69 (84) 94 97.3 04/30/18 09:49 68 105/69 04/30/18 09:45 68 18 Room Air 21 04/30/18 09:00 Room Air 04/30/18 08:00 97.9 68 16 105/69 (81) 94 97.9 04/30/18 04:00 98.2 63 16 103/66 (78) 94 98.2 04/30/18 00:00 98.2 64 18 117/68 (84) 95 98.2 04/29/18 21:00 Room Air 04/29/18 20:33 73 18 Room Air 21 04/29/18 20:00 98.1 72 20 115/66 (82) 96 98.1 04/29/18 16:00 97.4 71 22 116/77 (90) 95 97.4 Intake and Output 04/29/18 04/30/18 19:00 07:00 Intake Total 720 ml Balance 720 ml Intake Oral 720 ml # Voids 2 Laboratory Tests Test 04/29/18 16:20 04/30/18 05:20 Sodium Level 142 MMOL/L (136-145) Potassium Level 4.3 MMOL/L (3.5-5.1) Chloride Level 106 MMOL/L (98-107) Carbon Dioxide Level 28 MMOL/L (21-32) Anion Gap 8 mmol/L (5-15) Blood Urea Nitrogen 16 mg/dL (7-18) Creatinine 1.3 MG/DL (0.55-1.30) Estimat Glomerular Filtration Rate > 60 mL/min (>60) Glucose Level 104 MG/DL (74-106) Calcium Level 9.2 MG/DL (8.5-10.1) White Blood Count 6.3 K/UL (4.8-10.8) Red Blood Count 4.51 M/UL (4.70-6.10) L Hemoglobin 14.0 G/DL (14.2-18.0) L Hematocrit 42.0 % (42.0-52.0) Mean Corpuscular Volume 93 FL (80-99) Mean Corpuscular Hemoglobin 31.0 PG (27.0-31.0) Mean Corpuscular Hemoglobin Concent 33.2 G/DL (32.0-36.0) Red Cell Distribution Width 12.5 % (11.6-14.8) Platelet Count 190 K/UL (150-450) Mean Platelet Volume 8.1 FL (6.5-10.1) Neutrophils (%) (Auto) 54.0 % (45.0-75.0) Lymphocytes (%) (Auto) 37.2 % (20.0-45.0) Monocytes (%) (Auto) 6.6 % (1.0-10.0) Eosinophils (%) (Auto) 1.4 % (0.0-3.0) Basophils (%) (Auto) 0.8 % (0.0-2.0) Height (Feet): 5 Height (Inches): 8.00 Weight (Pounds): 204 General Appearance: WD/WN, no apparent distress, alert Cardiovascular: normal rate Respiratory/Chest: normal breath sounds, no respiratory distress Abdominal Exam: normal bowel sounds, non tender, soft Extremities: normal range of motion, non-tender Glen Shook NP Apr 30, 2018 14:27
--- NOTE | 2018-05-01 12:11 | Discharge Summary ---
Discharge Summary Discharge Summary _ DATE OF ADMISSION: 04/24/2018 DATE OF DISCHARGE: 04/30/2018 ATTENDING: Dr. Jaylen Lara CONSULTANTS: Dr. Talib Ley [facility] HOSPITAL COURSE: Patient is a 72-year-old -[place] male, who presented to ED with chief complaint of chest pain. History started on 04/18/2018, after he ate pizza, then began to experience epigastric pain. He awoke next day, 04/19/2018 with left-sided chest pain. Chest pain radiated to the left shoulder and left hip. Pain had been constant. He then presented to ED as discomfort worsened over the past 4 days. He denied fever. He reported increased difficulty with breathing. He has history of asthma and has been taking albuterol inhalers. He has medical history significant for hypertension with hypertensive heart disease, history of renal Cell CVA status post nephrectomy, COPD, hypercholesterolemia, BPH, hepatitis C, anxiety and depression. On evaluation at ED, he was given breathing treatments. EKG showed normal sinus rhythm with no acute ST or T-wave changes. He was given Solu-Medrol and aspirin. He was given IVmagnesium for bronchospasm. Chest x-ray showed no acute process. Blood work was unremarkable. Initial troponin was negative. D- dimer negative. Due to patient's advanced age and multiple risk factors, he was admitted for further management. He underwent cardiac evaluation. He was continued on aspirin urine and was placed on nitroglycerin prn. Lipid panel was checked. He was continued on Lipitor 20 mg daily at bedtime. Serial troponins were negative. CRP negative. There is clinical suspicion of costochondritis. He was given colchicine and ibuprofen. He underwent Lexiscan stress test. He complained of abdominal pain with nausea. Abdominal ultrasound showed no evidence of acute intra-abdominal pathology. There was evidence of partial left nephrectomy. There was no sonographic evidence to suggest acute cholecystitis. On 04/28/2018, he underwent upper endoscopy with biopsy. Findings showed multiple antral erosions; there was presence of gastritis and duodenitis. He was continued on Protonix daily. He is positive for hepatitis C and was recommended outpatient follow-up. He underwent psychiatric evaluation. Patient has anxiety and insomnia. He was given Restoril prn. Stress test results were negative. EGD without any evidence of H. pylori. He was eventually cleared for discharge home. FINAL DIAGNOSES: Chest pain possibly secondary to costochondritis COPD Hepatitis C Renal cell carcinoma Anxiety disorder Insomnia BPH Hyperlipidemia Prior DVT on elevated lipase Hypertensive hypertrophic cardiomyopathy Hypertension DISPOSITION: Patient was discharged home. DISCHARGE MEDICATIONS: Refer to Discharge Medication List. Continue with colchicine and ibuprofen to complete 2 weeks. DISCHARGE INSTRUCTIONS: Follow up with PCP and in a week. Follow-up with GI. I have been assigned to dictate discharge summary on this account, and I was not involved in the patient's management. Adali Ortiz NP May 01, 2018 12:11
== END 2018-04-30 13:00 | disposition home or self-care (01) | DRG 206 ==
LOC: EMR 16:35 → 2E 16:40 → EDBEDREQ 18:01 → 2E 04-26 05:18 → 4E 04-28 16:22
PROC: 0DB78ZX Excision of Stomach, Pylorus, Via Natural or Artificial Opening Endoscopic, Diagnostic (ICD-10-PCS; principal; 2018-04-28 11:30)
DX: M94.0 Chondrocostal junction syndrome [Tietze] (principal); I42.2 Other hypertrophic cardiomyopathy; B19.20 Unspecified viral hepatitis C without hepatic coma; Z85.528 Personal history of other malignant neoplasm of kidney; R10.13 Epigastric pain; I11.9 Hypertensive heart disease without heart failure; J44.9 Chronic obstructive pulmonary disease, unspecified; N40.0 Benign prostatic hyperplasia without lower urinary tract symptoms; F41.9 Anxiety disorder, unspecified; F32.9 Major depressive disorder, single episode, unspecified; Z87.891 Personal history of nicotine dependence; Z86.718 Personal history of other venous thrombosis and embolism; K25.9 Gastric ulcer, unspecified as acute or chronic, without hemorrhage or perforation; K29.80 Duodenitis without bleeding; G47.00 Insomnia, unspecified; E78.5 Hyperlipidemia, unspecified; Z90.5 Acquired absence of kidney
CPT/HCPCS: 36415; 71045; 76700; 78452; 80048; 80053; 80061; 80307; 82150; 82550; 82553; 83690; 83880; 84443; 84484; 85007; 85025; 85379; 85610; 85651; 85730; 86140; 86705; 86709; 86803; 87340; 93005; 93017; 93306; 93970; 94003; 94150; 94640; 94664; 99284; J2250; J2785

== ENCOUNTER 2018-05-18 13:22 | Inpatient (IN) | payer MEDICARE, MEDICAID ==
[~2018-05-18] VITALS: Ht 172.7 cm; Wt 90.3 kg
[~2018-05-18 13:22] MED LIST changes: +COLCRYS0.6 M1 ORAL; +IBUPROFEN800 MG ORAL; +PROTONIX40 MG ORAL; +ROXICODONE30 M1 ORAL; +TIZANIDINE HCL4 MG ORAL; +XARELTO10 MG ORAL
[2018-05-18 13:35] VITALS: BP 121/76
[2018-05-18] MEDS ORDERED: cefTRIAXone 2 GM in NS 110 ML IV ONE (13:45)
[2018-05-18 14:08] LABS: BILIRUBIN, URINE NEGATIVE (NEGATIVE); GLUCOSE, URINE (UA) NEGATIVE (NEGATIVE); KETONES,URINE NEGATIVE (NEGATIVE); LEUKOCYTE ESTERASE ,URINE 3+ (NEGATIVE); NITRITE,URINE NEGATIVE (NEGATIVE); PH,URINE 6 (4.5-8.0); PROTEIN,URINE 2+ (NEGATIVE); UROBILINOGEN,URINE 4 MG/DL (0.0-1.0)
[2018-05-18 14:10] LABS: COLOR,URINE YELLOW
[2018-05-18 14:11] LABS: APPEARANCE,URINE CLOUDY
[2018-05-18 14:13] LABS: ANION GAP 6 mmol/L (5-15); BLOOD UREA NITROGEN 11 mg/dL (7-18); CALCIUM 9.6 MG/DL (8.5-10.1); CARBON DIOXIDE 27 MMOL/L (21-32); CHLORIDE 103 MMOL/L (98-107); CREATININE 1.3 MG/DL (0.55-1.30); SODIUM 136 MMOL/L (136-145)
[2018-05-18 14:17] LABS: EOSINOPHILS % (AUTO) 0.8 % (0.0-3.0); HEMATOCRIT 45.2 % (42.0-52.0); LYMPHOCYTES % (AUTO) 16.8 % (20.0-45.0); MEAN CORPUSCULAR VOLUME 92 FL (80-99); MONOCYTES % (AUTO) 7.3 % (1.0-10.0); NEUTROPHILS % (AUTO) 74.2 % (45.0-75.0); PLATELET COUNT 252 K/UL (150-450); RED BLOOD COUNT 4.89 M/UL (4.70-6.10); WHITE BLOOD COUNT 13.5 K/UL (4.8-10.8)
[2018-05-18 14:18] LABS: ALANINE AMINOTRANSFERASE 25 U/L (12-78); ALBUMIN 3.9 G/DL (3.4-5.0); ALBUMIN/GLOBULIN RATIO 0.9 (1.0-2.7); ALKALINE PHOSPHATASE 78 U/L (46-116); ASPARTATE AMINO TRANSFERASE 15 U/L (15-37); BILIRUBIN,TOTAL 0.7 MG/DL (0.2-1.0)
--- NOTE | 2018-05-18 15:04 | Emergency Room Report ---
History of Present Illness General Chief Complaint: Male Urogenital Problems Source: Patient Present Illness [facility] Mr. Archer is a pleasant 73-year-old male who presents with severe burning with urination. Pain is radiated to his left groin. He has subjective fever and chills. He has generalized malaise. Gradual onset of symptoms. Symptoms are constant. PCP is Mr. Archer is a pleasant 73-year-old male with several medical conditions. I Reviewed his electronic chart. Has a history of acute pyelonephritis. According to urine culture 2013 Proteus organism grew which was pansensitive. Allergies: Coded Allergies: No Known Allergies (Unverified , 10/27/12) Patient History Past Medical History: old chart reviewed Social History: Denies: smoking, alcohol use, drug use Reviewed Nursing Documentation: PMH: Agreed; PSxH: Agreed Nursing Documentation-PMH Past Medical History: No History, Except For Hx Cardiac Problems: No Hx Hypertension: No Hx Pacemaker: No Hx Asthma: No Hx COPD: No Hx Diabetes: Yes - BORDERLINE Hx Cancer: No - Benign kidney Cancer Hx Gastrointestinal Problems: Yes Hx Dialysis: No - Hep C, knee surgery 2011 Hx Neurological Problems: Yes - dizziness, headache Hx Cerebrovascular Accident: No Hx Seizures: No 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 Hx Dizziness: Yes - WHEN CHANGING FROM SITTING TO STANDING Hx Headaches: Yes - OCCASIONALLY, MORE AFTER FACIAL SWELLING Hx Weakness: Yes - generalized Review of Systems Constitutional: Reports: chills, fever, malaise Respiratory: Denies: cough Cardiovascular: Denies: chest pain Gastrointestinal: Reports: abdominal pain All Other Systems: negative except mentioned in HPI Physical Exam Vital Signs Date Time Temp Pulse Resp B/P (MAP) Pulse Ox O2 Delivery O2 Flow Rate FiO2 05/18/18 13:25 97.9 84 16 111/76 96 Room Air 97.9 Sp02 EP Interpretation: reviewed, normal General Appearance: no apparent distress, alert, GCS 15, non-toxic Head: normocephalic, atraumatic Eyes: bilateral eye normal inspection ENT: hearing grossly normal, normal pharynx, no angioedema, normal voice Neck: full range of motion, supple/symm/no masses Respiratory: chest non-tender, lungs clear, normal breath sounds, speaking full sentences Cardiovascular #1: regular rate, rhythm Gastrointestinal: normal bowel sounds, non tender, soft, non-distended, no guarding, no rebound Rectal: deferred Genitourinary: normal inspection, no CVA tenderness Musculoskeletal: back normal, gait/station normal, normal range of motion, non- tender, calf tenderness Neurologic: alert, oriented x3, responsive, motor strength/tone normal, sensory intact, speech normal Psychiatric: judgement/insight normal, memory normal, mood/affect normal Reflexes: 3+ bicep (R), 3+ bicep (L), 3+ tricep (R), 3+ tricep (L), 3+ knee (R) , 3+ knee (L) Skin: normal color, no rash, warm/dry, well hydrated, other - healed wound right axilla at previous abscess site, clean bandage removed Lymphatic: no adenopathy Medical Decision Making Diagnostic Impression: Primary Impression: Pyelonephritis, acute Additional Impression: Complicated UTI (urinary tract infection) ER Course Mr. Archer will be admitted to Dr. Lara's for acute pyelonephritis,IV ceftriaxone completed in ED. Labs Test 05/18/18 13:35 05/18/18 13:40 Urine Color Yellow Urine Appearance Cloudy Urine pH 6 (4.5-8.0) Urine Specific Coker 1.015 (1.005-1.035) Urine Protein 2+ (NEGATIVE) Urine Glucose (UA) Negative (NEGATIVE) Urine Ketones Negative (NEGATIVE) Urine Occult Blood 2+ (NEGATIVE) Urine Nitrite Negative (NEGATIVE) Urine Bilirubin Negative (NEGATIVE) Urine Urobilinogen 4 MG/DL (0.0-1.0) Urine Leukocyte Esterase 3+ (NEGATIVE) Urine RBC 5-10 /HPF (0 - 0) Urine WBC Tntc /HPF (0 - 0) Urine Squamous Epithelial Cells Occasional /LPF Urine Bacteria Occasional /HPF (NONE) White Blood Count 13.5 K/UL (4.8-10.8) Red Blood Count 4.89 M/UL (4.70-6.10) Hemoglobin 15.0 G/DL (14.2-18.0) Hematocrit 45.2 % (42.0-52.0) Mean Corpuscular Volume 92 FL (80-99) Mean Corpuscular Hemoglobin 30.6 PG (27.0-31.0) Mean Corpuscular Hemoglobin Concent 33.1 G/DL (32.0-36.0) Red Cell Distribution Width 12.0 % (11.6-14.8) Platelet Count 252 K/UL (150-450) Mean Platelet Volume 7.2 FL (6.5-10.1) Neutrophils (%) (Auto) 74.2 % (45.0-75.0) Lymphocytes (%) (Auto) 16.8 % (20.0-45.0) Monocytes (%) (Auto) 7.3 % (1.0-10.0) Eosinophils (%) (Auto) 0.8 % (0.0-3.0) Basophils (%) (Auto) 1.0 % (0.0-2.0) Sodium Level 136 MMOL/L (136-145) Potassium Level 4.0 MMOL/L (3.5-5.1) Chloride Level 103 MMOL/L (98-107) Carbon Dioxide Level 27 MMOL/L (21-32) Anion Gap 6 mmol/L (5-15) Blood Urea Nitrogen 11 mg/dL (7-18) Creatinine 1.3 MG/DL (0.55-1.30) Estimat Glomerular Filtration Rate mL/min (>60) Glucose Level 109 MG/DL (74-106) Lactic Acid Level 0.60 mmol/L (0.4-2.0) Calcium Level 9.6 MG/DL (8.5-10.1) Total Bilirubin 0.7 MG/DL (0.2-1.0) Aspartate Amino Transf (AST/SGOT) 15 U/L (15-37) Alanine Aminotransferase (ALT/SGPT) 25 U/L (12-78) Alkaline Phosphatase 78 U/L (46-116) Total Protein 8.3 G/DL (6.4-8.2) Albumin 3.9 G/DL (3.4-5.0) Globulin 4.4 g/dL Albumin/Globulin Ratio 0.9 (1.0-2.7) Lab Results Impression UTI, Elevated WBC normal lactic acid CT/MRI/US Diagnostic Results CT/MRI/US Diagnostic Results : Imaging Test Ordered: ct abdmen pelvis Impression chronic changes no acute process, partial nephrectomy on left Last Vital Signs Date Time Temp Pulse Resp B/P (MAP) Pulse Ox O2 Delivery O2 Flow Rate FiO2 05/18/18 13:35 97.2 85 28 121/76 100 Room Air 97.2 Referrals: Jaylen Lara MD (PCP) LAN MOLINA May 18, 2018 15:04
[2018-05-18 15:36] VITALS: BP 120/68
--- NOTE | 2018-05-18 15:49 | Diagnostic Imaging Report ---
Indication: Abdominal pain Technique: Spiral acquisitions obtained through the abdomen and pelvis. No oral contrast utilized, per emergency room physician request No IV contrast utilized, per referring physician request.. Multiplanar reconstructions were generated. Total dose length product 860.48 mGycm. CTDIvol(s) 15.23 mGy. Dose reduction achieved using automated exposure control Comparison: 03/09/2014 Findings: The appendix is not definitely identified. However, no findings to suggest acute appendicitis are evident. There is colonic diverticulosis. No evidence of diverticulitis. There is a broad-based fat-containing umbilical hernia which contains only fat. No small bowel distention. Distal esophagus, stomach, duodenum are unremarkable. Lack of IV contrast limits assessment of the solid organs. The liver, gallbladder, bile ducts, pancreas, spleen, adrenals, right kidney are unremarkable. Surgical clips are seen medial to the left kidney. Serpiginous calcifications are seen surrounding the lower pole of the left kidney, also evident previously. The prostate is markedly enlarged, measuring 6.5 x 6.3 cm. A solitary calcification is seen within the prostate. The bladder wall is equivocally mildly thickened, but this is probably an artifact of under distention The included lung bases demonstrate posterior dependent atelectatic changes. There may be a chronic fibrotic elements as findings in this area are similar to the previous study. There are also small bullae. The bones are unremarkable except for occasional fusion anomalies of the lumbar spine Impression: No acute abnormality Colonic diverticulosis. No evidence of diverticulitis Evidence of prior left lower pole partial nephrectomy with surrounding dystrophic calcifications, unchanged from previous study of 03/09/2014. No evidence of recurrent mass Prostatomegaly Other findings as noted, including small fat-containing umbilical hernia, posterior pulmonary dependent atelectatic changes and/or fibrotic changes, small pulmonary bullae The CT scanner at [facility] is accredited by the [employer] and the scans are performed using protocols designed to limit radiation exposure to as low as reasonably achievable to attain images of sufficient resolution adequate for diagnostic evaluation.
[2018-05-18] MEDS ORDERED: Albuterol/Ipratropium 3ml neb HHN PRN (16:30)
[2018-05-18] MEDS ORDERED: Miralax 17gm pkt ORAL PRN (16:30)
[2018-05-18 18:20] VITALS: BP 112/64
[2018-05-18] MEDS ORDERED: Vancomycin 1.5 GM/D5W 250ML IVPB SCH (18:30)
[2018-05-18 18:45] VITALS: BP 120/68
[2018-05-18] MEDS: Morphine Sulfate 2mg/ml Inj(IV/IM USE ONLY) IVP PRN (20:14)
[2018-05-18 21:37] VITALS: BP 124/70
[2018-05-18] MEDS: Cefepime HCl 2 GM in D5W 110 ML IV SCH (21:53)
[2018-05-18] MEDS: Heparin 5000 units/ml inj SUBQ SCH (21:55)
[2018-05-18 22:20] LABS: APPEARANCE,URINE CLEAR; BILIRUBIN, URINE NEGATIVE (NEGATIVE); GLUCOSE, URINE (UA) NEGATIVE (NEGATIVE); KETONES,URINE NEGATIVE (NEGATIVE); LEUKOCYTE ESTERASE ,URINE 3+ (NEGATIVE); NITRITE,URINE NEGATIVE (NEGATIVE); PH,URINE 6 (4.5-8.0); PROTEIN,URINE 1+ (NEGATIVE); UROBILINOGEN,URINE 4 MG/DL (0.0-1.0)
[2018-05-18 22:21] LABS: COLOR,URINE YELLOW
[2018-05-19] MEDS ORDERED: Vancomycin 1 GM in D5W 275 ML IV SCH (00:30)
[2018-05-19 00:38] VITALS: BP 121/68
[2018-05-19] MEDS: Morphine Sulfate 2mg/ml Inj(IV/IM USE ONLY) IVP PRN ×4 (03:33→22:20)
[2018-05-19 04:00] VITALS: BP 116/67
[2018-05-19] MEDS: Vancomycin 750mg/NS 250ml IVPB SCH ×2 (06:41→18:12)
[2018-05-19 08:00] VITALS: BP 113/68
[2018-05-19] MEDS: Heparin 5000 units/ml inj SUBQ SCH ×2 (08:01→22:11)
[2018-05-19 08:16] LABS: BASOPHILS % (AUTO) 0.9 % (0.0-2.0); EOSINOPHILS % (AUTO) 1.7 % (0.0-3.0); HEMATOCRIT 42.2 % (42.0-52.0); HEMOGLOBIN 14.6 G/DL (14.2-18.0); LYMPHOCYTES % (AUTO) 20.8 % (20.0-45.0); MEAN CORPUSCULAR VOLUME 93 FL (80-99); MONOCYTES % (AUTO) 7.8 % (1.0-10.0); NEUTROPHILS % (AUTO) 68.8 % (45.0-75.0); PLATELET COUNT 245 K/UL (150-450); RED BLOOD COUNT 4.55 M/UL (4.70-6.10); RED CELL DISTRIBUTION WIDTH 12.1 % (11.6-14.8); WHITE BLOOD COUNT 9.1 K/UL (4.8-10.8)
[2018-05-19 08:33] LABS: ALANINE AMINOTRANSFERASE 23 U/L (12-78); ALBUMIN 3.4 G/DL (3.4-5.0); ALBUMIN/GLOBULIN RATIO 0.8 (1.0-2.7); ANION GAP 10 mmol/L (5-15); ASPARTATE AMINO TRANSFERASE 16 U/L (15-37); BILIRUBIN,TOTAL 0.6 MG/DL (0.2-1.0); BLOOD UREA NITROGEN 10 mg/dL (7-18); CALCIUM 9.2 MG/DL (8.5-10.1); CARBON DIOXIDE 25 MMOL/L (21-32); CHLORIDE 105 MMOL/L (98-107); CREATININE 1.2 MG/DL (0.55-1.30); SODIUM 140 MMOL/L (136-145)
--- NOTE | 2018-05-19 09:05 | Consultation ---
History of Present Illness General Date patient seen: May 19, 2018 Chief Complaint: Male Urogenital Problems Reason for Consultation: UTI Present Illness HPI Mr. Archer is a 73 yo male with who presented to the ED on 05/18/18 with dysuria. The patient is a patient of Dr. Lara who recommend that he come to the ED. The patient reports that he has had severe pain with urination and fever. He also has not been feeling well and has had some dizziness. He says the pain extended ot his back but that has resolved. In the ED he was found to have no fever but leukocytosis and a positive UA. He was started on Cefepime and vancomycin. PMHx # COPD # Hepatitis C # Renal cell carcinoma # Anxiety disorder # BPH # Hyperlipidemia # Hx of DVT # Hypertensive hypertrophic cardiomyopathy # Hypertension PSHx Knee surgery Kidney surgery SocHx Deneis E/T/D FamHx Review not contributory Allergies: Coded Allergies: No Known Allergies (Unverified , 10/27/12) Medication History Scheduled Amlodipine Besylate* (Amlodipine Besylate*), 5 MG ORAL DAILY, (Reported) Cholecalciferol (Vitamin D3)* (Vitamin D*), 2,000 UNITS ORAL DAILY, (Reported) Colchicine (Colcrys), 0.6 MG ORAL DAILY Ibuprofen* (Motrin*), 800 MG ORAL Q6H Pantoprazole* (Protonix*), 40 MG ORAL DAILY Rivaroxaban (Xarelto*), Unknown Dose ORAL DAILY, (Reported) Simvastatin (Zocor), 40 MG PO QHS, (Reported) Tamsulosin HCl (Flomax), 0.4 MG PO QHS, (Reported) Scheduled PRN Oxycodone Hcl* (Roxicodone*), 30 MG ORAL Q6H PRN for For Pain, (Reported) Tizanidine Hcl* (Zanaflex*), Unknown Dose ORAL THREE TIMES A DAY PRN for For Pain, (Reported) Patient History Healthcare decision maker patient Resuscitation status Advanced Directive on File Review of Systems All Other Systems: negative except mentioned in HPI Physical Exam Last 24 Hour Vital Signs Date Time Temp Pulse Resp B/P (MAP) Pulse Ox O2 Delivery O2 Flow Rate FiO2 05/19/18 08:13 Room Air 05/19/18 08:00 97.6 77 18 113/68 (83) 96 97.6 05/19/18 04:00 97.9 70 19 116/67 (83) 95 97.9 05/19/18 00:38 97.7 73 17 121/68 (85) 98 97.7 05/18/18 21:37 97.6 76 18 124/70 (88) 98 97.6 05/18/18 21:00 Room Air 05/18/18 19:08 Room Air 05/18/18 18:45 97.1 71 12 120/68 98 Room Air 206.8 05/18/18 18:45 97.1 71 12 120/68 98 Room Air 97.1 05/18/18 18:20 97.1 75 15 112/64 98 Room Air 97.1 05/18/18 15:36 97.1 71 12 120/68 98 Room Air 97.1 05/18/18 13:35 97.2 85 28 121/76 100 Room Air 97.2 05/18/18 13:25 97.9 84 16 111/76 96 Room Air 97.9 Intake and Output 05/18/18 05/19/18 19:00 07:00 Intake Total 100 ml Output Total 450 ml Balance 100 ml -450 ml Intake IV Total 100 ml Output Urine Total 450 ml # Voids 2 # Bowel Movements 1 Laboratory Tests Test 05/18/18 13:35 05/18/18 13:40 05/18/18 22:00 05/19/18 07:20 Urine Color Yellow Yellow Urine Appearance Cloudy Clear Urine pH 6 (4.5-8.0) 6 (4.5-8.0) Urine Specific [place] 1.015 (1.005-1.035) 1.015 (1.005-1.035) Urine Protein 2+ (NEGATIVE) H 1+ (NEGATIVE) H Urine Glucose (UA) Negative (NEGATIVE) Negative (NEGATIVE) Urine Ketones Negative (NEGATIVE) Negative (NEGATIVE) Urine Occult Blood 2+ (NEGATIVE) H Negative (NEGATIVE) Urine Nitrite Negative (NEGATIVE) Negative (NEGATIVE) Urine Bilirubin Negative (NEGATIVE) Negative (NEGATIVE) Urine Urobilinogen 4 MG/DL (0.0-1.0) H 4 MG/DL (0.0-1.0) H Urine Leukocyte Esterase 3+ (NEGATIVE) H 3+ (NEGATIVE) H Urine RBC 5-10 /HPF (0 - 0) H 2-4 /HPF (0 - 0) H Urine WBC Tntc /HPF (0 - 0) H 15-20 /HPF (0 - 0) H Urine Squamous Epithelial Cells Occasional /LPF None /LPF (NONE/OCC) Urine Bacteria Occasional /HPF (NONE) Moderate /HPF (NONE) H White Blood Count 13.5 K/UL (4.8-10.8) H 9.1 K/UL (4.8-10.8) Red Blood Count 4.89 M/UL (4.70-6.10) 4.55 M/UL (4.70-6.10) L Hemoglobin 15.0 G/DL (14.2-18.0) 14.6 G/DL (14.2-18.0) Hematocrit 45.2 % (42.0-52.0) 42.2 % (42.0-52.0) Mean Corpuscular Volume 92 FL (80-99) 93 FL (80-99) Mean Corpuscular Hemoglobin 30.6 PG (27.0-31.0) 32.1 PG (27.0-31.0) H Mean Corpuscular Hemoglobin Concent 33.1 G/DL (32.0-36.0) 34.6 G/DL (32.0-36.0) Red Cell Distribution Width 12.0 % (11.6-14.8) 12.1 % (11.6-14.8) Platelet Count 252 K/UL (150-450) 245 K/UL (150-450) Mean Platelet Volume 7.2 FL (6.5-10.1) 6.9 FL (6.5-10.1) Neutrophils (%) (Auto) 74.2 % (45.0-75.0) 68.8 % (45.0-75.0) Lymphocytes (%) (Auto) 16.8 % (20.0-45.0) L 20.8 % (20.0-45.0) Monocytes (%) (Auto) 7.3 % (1.0-10.0) 7.8 % (1.0-10.0) Eosinophils (%) (Auto) 0.8 % (0.0-3.0) 1.7 % (0.0-3.0) Basophils (%) (Auto) 1.0 % (0.0-2.0) 0.9 % (0.0-2.0) Sodium Level 136 MMOL/L (136-145) Pending Potassium Level 4.0 MMOL/L (3.5-5.1) Pending Chloride Level 103 MMOL/L (98-107) Pending Carbon Dioxide Level 27 MMOL/L (21-32) Pending Anion Gap 6 mmol/L (5-15) Blood Urea Nitrogen 11 mg/dL (7-18) Pending Creatinine 1.3 MG/DL (0.55-1.30) Pending Estimat Glomerular Filtration Rate mL/min (>60) Pending Glucose Level 109 MG/DL (74-106) H Pending Lactic Acid Level 0.60 mmol/L (0.4-2.0) Calcium Level 9.6 MG/DL (8.5-10.1) Pending Total Bilirubin 0.7 MG/DL (0.2-1.0) Pending Aspartate Amino Transf (AST/SGOT) 15 U/L (15-37) Pending Alanine Aminotransferase (ALT/SGPT) 25 U/L (12-78) Pending Alkaline Phosphatase 78 U/L (46-116) Pending Total Protein 8.3 G/DL (6.4-8.2) H Pending Albumin 3.9 G/DL (3.4-5.0) Pending Globulin 4.4 g/dL Pending Albumin/Globulin Ratio 0.9 (1.0-2.7) L Microbiology Date/Time Source Procedure Growth Status 05/18/18 13:35 Urine,Clean Catch Urine Culture - Preliminary Gram Negative Bacillus 1 Resulted Height (Feet): 5 Height (Inches): 8.00 Weight (Pounds): 199 Medications Current Medications Medications (Trade) Dose Ordered Sig/Felipe Route PRN Reason Start Time Stop Time Status Last Admin Dose Admin Acetaminophen (Tylenol) 650 mg Q4H PRN ORAL fever 05/18/18 16:30 06/17/18 16:29 Albuterol/ Ipratropium (Albuterol/ Ipratropium) 3 ml Q4H PRN HHN Shortness of Breath 05/18/18 16:30 05/23/18 16:29 Cefepime HCl 2 gm/ Dextrose 110 ml @ 220 mls/hr Q24H IV 05/18/18 21:00 05/25/18 20:59 05/18/18 21:53 Heparin Sodium (Porcine) (Heparin 5000 units/ml) 5,000 units EVERY 12 HOURS SUBQ 05/18/18 21:00 06/17/18 20:59 05/19/18 08:01 Morphine Sulfate (Morphine Sulfate) 2 mg Q4H PRN IVP Moderate Pain (Pain Scale 4-6) 05/18/18 16:30 05/25/18 16:29 05/19/18 03:33 Ondansetron HCl (Zofran) 4 mg Q6H PRN IVP Nausea & Vomiting 05/18/18 16:30 06/17/18 16:29 Phenazopyridine HCl (Pyridium) 100 mg DAILY PRN ORAL dysuria 05/18/18 16:30 06/17/18 16:29 05/18/18 20:11 Polyethylene Glycol (Miralax) 17 gm DAILYPRN PRN ORAL Constipation 05/18/18 16:30 06/17/18 16:29 Temazepam (Restoril) 15 mg HSPRN PRN ORAL Insomnia 05/18/18 16:30 05/25/18 16:29 Vancomycin HCl (Vanco rx to dose) 1 ea DAILY PRN MISC per rx protocol 05/18/18 18:00 06/17/18 17:59 Vancomycin/Sodium Chloride 250 ml @ 166.667 mls/hr Q12H IVPB 05/19/18 06:30 05/24/18 06:29 05/19/18 06:41 Objective Narrative Gen: NAD, well appearing, alert HEENT: NCAT, MMM, EOMI, PERRL, No Oral lesion, no scleral icterus~ NECK: full range of motion, supple, no meningismus, No LAD, No JVD LUNGS: CTAB, No W/C, No Accessory muscle use CARDS: RRR, S1, S2, No M/R/G ABD: Soft, Suprapubic tenderness ( says he has to urinate ), ND, No R/G, + BS, No HSM, No Masses, No CVA tenderness : Deferred Ext: C/C/E, Pulses 2+ B/L (DP, Rad): NEURO: A/O x 4, Strength and Sensation Grossly intact PSYCH: mood/affect normal SKIN:~ warm/dry, No rashes, Assessment/Plan Assessment/Plan 73 yo male with who presented to the ED on 05/18/18 with dysuria and was found to have UTI # UTI Positive UA and dysuria - Urine culture 05/18/18 pending # COPD # Hepatitis C # Renal cell carcinoma # Anxiety disorder # BPH # Hyperlipidemia # Hx of DVT # Hypertensive hypertrophic cardiomyopathy # Hypertension Plan: - Continue Vancomycin #1 and Cefepime #1 pending cultures - f/u Urine cultures - Monitor CBC and tems - Supportive care ~ Thank you for consulting us for the care of this patient. We will continue to follow with you. Talib Wyatt M.D. May 19, 2018 09:05
[2018-05-19 09:46] LABS: ALKALINE PHOSPHATASE 69 U/L (46-116)
[2018-05-19 12:00] VITALS: BP 132/75
--- NOTE | 2018-05-19 15:37 | Consultation ---
History of Present Illness General Date patient seen: May 19, 2018 Chief Complaint: Male Urogenital Problems Reason for Consultation: UTI Present Illness HPI 73 year old male with hx of HTN, BPH, Gout, DVT ( last month) presented with severe burning with urination. Pain is radiated to his left groin. He has subjective fever and chills. He has generalized malaise. Gradual onset of symptoms. Pt was diagnosed to have pyelonephritis and admitted for further care. Allergies: Coded Allergies: No Known Allergies (Unverified , 10/27/12) Medication History Scheduled Amlodipine Besylate* (Amlodipine Besylate*), 5 MG ORAL DAILY, (Reported) Cholecalciferol (Vitamin D3)* (Vitamin D*), 2,000 UNITS ORAL DAILY, (Reported) Colchicine (Colcrys), 0.6 MG ORAL DAILY Ibuprofen* (Motrin*), 800 MG ORAL Q6H Pantoprazole* (Protonix*), 40 MG ORAL DAILY Rivaroxaban (Xarelto*), Unknown Dose ORAL DAILY, (Reported) Simvastatin (Zocor), 40 MG PO QHS, (Reported) Tamsulosin HCl (Flomax), 0.4 MG PO QHS, (Reported) Scheduled PRN Oxycodone Hcl* (Roxicodone*), 30 MG ORAL Q6H PRN for For Pain, (Reported) Tizanidine Hcl* (Zanaflex*), Unknown Dose ORAL THREE TIMES A DAY PRN for For Pain, (Reported) Patient History Healthcare decision maker patient Resuscitation status Advanced Directive on File Past Medical/Surgical History Past Medical/Surgical History: (1) Diabetes (2) Low back pain (3) DVT of leg (deep venous thrombosis) (4) Costochondritis (5) Hepatitis C (6) COPD (chronic obstructive pulmonary disease) (7) Renal cell carcinoma Review of Systems All Other Systems: negative except mentioned in HPI Physical Exam General Appearance: WD/WN, no apparent distress Lines, tubes and drains: peripheral, central line HEENT: normocephalic, atraumatic Neck: non-tender, normal alignment Respiratory/Chest: chest wall non-tender, lungs clear Cardiovascular/Chest: normal peripheral pulses, normal rate Abdomen: normal bowel sounds Genitourinary/Rectal: normal genital exam Last 24 Hour Vital Signs Date Time Temp Pulse Resp B/P (MAP) Pulse Ox O2 Delivery O2 Flow Rate FiO2 05/19/18 13:09 97.6 05/19/18 12:39 97.6 05/19/18 12:00 98.2 77 19 132/75 (94) 96 98.2 05/19/18 09:52 97.6 05/19/18 08:53 97.6 05/19/18 08:13 Room Air 05/19/18 08:00 97.6 77 18 113/68 (83) 96 97.6 05/19/18 04:00 97.9 70 19 116/67 (83) 95 97.9 05/19/18 00:38 97.7 73 17 121/68 (85) 98 97.7 05/18/18 21:37 97.6 76 18 124/70 (88) 98 97.6 05/18/18 21:00 Room Air 05/18/18 19:08 Room Air 05/18/18 18:45 97.1 71 12 120/68 98 Room Air 206.8 05/18/18 18:45 97.1 71 12 120/68 98 Room Air 97.1 05/18/18 18:20 97.1 75 15 112/64 98 Room Air 97.1 05/18/18 15:36 97.1 71 12 120/68 98 Room Air 97.1 Intake and Output 05/18/18 05/19/18 18:59 06:59 Intake Total 100 ml Output Total 450 ml Balance 100 ml -450 ml Intake IV Total 100 ml Output Urine Total 450 ml # Voids 2 # Bowel Movements 1 Laboratory Tests Test 05/18/18 22:00 05/19/18 07:20 Urine Color Yellow Urine Appearance Clear Urine pH 6 (4.5-8.0) Urine Specific [place] 1.015 (1.005-1.035) Urine Protein 1+ (NEGATIVE) H Urine Glucose (UA) Negative (NEGATIVE) Urine Ketones Negative (NEGATIVE) Urine Occult Blood Negative (NEGATIVE) Urine Nitrite Negative (NEGATIVE) Urine Bilirubin Negative (NEGATIVE) Urine Urobilinogen 4 MG/DL (0.0-1.0) H Urine Leukocyte Esterase 3+ (NEGATIVE) H Urine RBC 2-4 /HPF (0 - 0) H Urine WBC 15-20 /HPF (0 - 0) H Urine Squamous Epithelial Cells None /LPF (NONE/OCC) Urine Bacteria Moderate /HPF (NONE) H White Blood Count 9.1 K/UL (4.8-10.8) Red Blood Count 4.55 M/UL (4.70-6.10) L Hemoglobin 14.6 G/DL (14.2-18.0) Hematocrit 42.2 % (42.0-52.0) Mean Corpuscular Volume 93 FL (80-99) Mean Corpuscular Hemoglobin 32.1 PG (27.0-31.0) H Mean Corpuscular Hemoglobin Concent 34.6 G/DL (32.0-36.0) Red Cell Distribution Width 12.1 % (11.6-14.8) Platelet Count 245 K/UL (150-450) Mean Platelet Volume 6.9 FL (6.5-10.1) Neutrophils (%) (Auto) 68.8 % (45.0-75.0) Lymphocytes (%) (Auto) 20.8 % (20.0-45.0) Monocytes (%) (Auto) 7.8 % (1.0-10.0) Eosinophils (%) (Auto) 1.7 % (0.0-3.0) Basophils (%) (Auto) 0.9 % (0.0-2.0) Sodium Level 140 MMOL/L (136-145) Potassium Level 4.0 MMOL/L (3.5-5.1) Chloride Level 105 MMOL/L (98-107) Carbon Dioxide Level 25 MMOL/L (21-32) Anion Gap 10 mmol/L (5-15) Blood Urea Nitrogen 10 mg/dL (7-18) Creatinine 1.2 MG/DL (0.55-1.30) Estimat Glomerular Filtration Rate mL/min (>60) Glucose Level 130 MG/DL (74-106) H Calcium Level 9.2 MG/DL (8.5-10.1) Total Bilirubin 0.6 MG/DL (0.2-1.0) Aspartate Amino Transf (AST/SGOT) 16 U/L (15-37) Alanine Aminotransferase (ALT/SGPT) 23 U/L (12-78) Alkaline Phosphatase 69 U/L (46-116) Total Protein 7.9 G/DL (6.4-8.2) Albumin 3.4 G/DL (3.4-5.0) Globulin 4.5 g/dL Albumin/Globulin Ratio 0.8 (1.0-2.7) L Height (Feet): 5 Height (Inches): 8.00 Weight (Pounds): 199 Medications Current Medications Medications (Trade) Dose Ordered Sig/Felipe Route PRN Reason Start Time Stop Time Status Last Admin Dose Admin Acetaminophen (Tylenol) 650 mg Q4H PRN ORAL fever 05/18/18 16:30 06/17/18 16:29 05/19/18 08:53 Albuterol/ Ipratropium (Albuterol/ Ipratropium) 3 ml Q4H PRN HHN Shortness of Breath 05/18/18 16:30 05/23/18 16:29 Cefepime HCl 2 gm/ Dextrose 110 ml @ 220 mls/hr Q24H IV 05/18/18 21:00 05/25/18 20:59 05/18/18 21:53 Heparin Sodium (Porcine) (Heparin 5000 units/ml) 5,000 units EVERY 12 HOURS SUBQ 05/18/18 21:00 06/17/18 20:59 05/19/18 08:01 Morphine Sulfate (Morphine Sulfate) 2 mg Q4H PRN IVP Moderate Pain (Pain Scale 4-6) 05/18/18 16:30 05/25/18 16:29 05/19/18 12:39 Ondansetron HCl (Zofran) 4 mg Q6H PRN IVP Nausea & Vomiting 05/18/18 16:30 06/17/18 16:29 Phenazopyridine HCl (Pyridium) 100 mg DAILY PRN ORAL dysuria 05/18/18 16:30 06/17/18 16:29 05/19/18 08:52 Polyethylene Glycol (Miralax) 17 gm DAILYPRN PRN ORAL Constipation 05/18/18 16:30 06/17/18 16:29 Temazepam (Restoril) 15 mg HSPRN PRN ORAL Insomnia 05/18/18 16:30 05/25/18 16:29 Vancomycin HCl (Vanco rx to dose) 1 ea DAILY PRN MISC per rx protocol 05/18/18 18:00 06/17/18 17:59 Vancomycin/Sodium Chloride 250 ml @ 166.667 mls/hr Q12H IVPB 05/19/18 06:30 05/24/18 06:29 05/19/18 06:41 Assessment/Plan Problem List: (1) Pyelonephritis ICD Codes: N12 - Tubulo-interstitial nephritis, not specified as acute or chronic SNOMED: 44331737 (2) COPD (chronic obstructive pulmonary disease) ICD Codes: J44.9 - Chronic obstructive pulmonary disease, unspecified SNOMED: 72351119 (3) Hepatitis C ICD Codes: B19.20 - Unspecified viral hepatitis C without hepatic coma SNOMED: 41089582 (4) Diabetes ICD Codes: E11.9 - Diabetes SNOMED: 95170109 (5) BPH (benign prostatic hypertrophy) ICD Codes: N40.0 - Enlarged prostate without lower urinary tract symptoms SNOMED: 504633655, 509658654 Assessment/Plan lopez culture iv fluids iv abx titrate fio2 to sat of 92% check electrolytes sliding scale diabetic diet. Susy Morse MD May 19, 2018 15:37
[2018-05-19] MEDS ORDERED: Morphine Sulfate 2mg/ml Inj(IV/IM USE ONLY) IVP PRN (15:45)
[2018-05-19] MEDS ORDERED: oxyCODONE 15mg IR tab ORAL PRN ×2 (15:45)
[2018-05-19 15:56] VITALS: BP 124/73
[2018-05-19] MEDS: Cefepime HCl 2 GM in D5W 110 ML IV SCH (17:14)
--- NOTE | 2018-05-19 17:51 | History & Physical ---
History and Physical History & Physicial Dictated for Int Med-Dr Lara no. [id number] Leonardo Palencia MD May 19, 2018 17:51
[2018-05-19 20:03] VITALS: BP 124/75
[2018-05-19] MEDS: Tamsulosin 0.4mg cap ORAL SCH (22:09)
[2018-05-20 00:16] VITALS: BP 122/69
--- NOTE | 2018-05-20 01:01 | History and Physical Report ---
DATE OF ADMISSION: 05/18/2018 CHIEF COMPLAINT: The patient is a 73-year-old male, who presents with chief complaint of burning on urination. HISTORY OF PRESENT ILLNESS: It began on 05/15/2018. The patient began to experience burning on urination. The patient also had groin pain. The patient complains of decreased appetite. The patient states he just does not feel like eating. The patient denies nausea. The patient had subjective fevers and chills. The patient presented to [facility]. The patient was found to have urinary tract infection. The patient is admitted for urinary tract infection to rule out pyelonephritis. PAST MEDICAL HISTORY: Significant for: 1. Hypertension. 2. Hypertensive heart disease. 3. History of renal cell cancer, status post nephrectomy. 4. Chronic obstructive pulmonary disease. 5. Hypercholesterolemia. 6. Benign prostatic hypertrophy. 7. Hepatitis C. 8. Anxiety. 9. Depression. PAST SURGICAL HISTORY: Significant for: 1. Appendectomy. 2. Nephrectomy. 3. Right knee surgery. CURRENT MEDICATIONS: 1. Amlodipine 5 mg one tablet p.o. daily. 2. Vitamin D 2000 units p.o. daily. 3. Colchicine 0.6 mg p.o. daily. 4. Ibuprofen 800 mg p.o. q.6 h. p.r.n. 5. Oxycodone 30 mg p.o. q.6 h. p.r.n. 6. Protonix 40 mg p.o. daily. 7. Simvastatin 40 mg p.o. nightly. 8. Flomax 0.4 mg p.o. nightly. ALLERGIES: No known drug allergies. SOCIAL HISTORY: The patient is single. The patient is disabled. The patient quit smoking after smoking 1 pack per day for 50 years. The patient denies alcohol use. REVIEW OF SYSTEMS: CONSTITUTIONAL: The patient complains of decreased appetite as above. The patient complains of fevers and chills. HEENT: The patient denies ear or throat pain. The patient denies headache. CARDIOVASCULAR: The patient denies palpitation or chest pain. CHEST: The patient denies wheeze or shortness of breath. ABDOMEN: The patient denies nausea, vomiting, diarrhea, or constipation. GENITOURINARY: The patient complains of dysuria as above. The patient denies hematuria. NEUROMUSCULAR: The patient denies seizures or generalized weakness. PHYSICAL EXAMINATION: GENERAL: The patient is a well-developed and well-nourished male, in no apparent distress. VITAL SIGNS: Temperature 97.6 degrees, respirations 19, pulse 77, and blood pressure 132/75. HEENT: Eyes, pupils equal and responsive to light and accommodation. Extraocular movements are intact. NECK: Supple without lymphadenopathy. CHEST: Lungs are clear to auscultation bilaterally without wheezes or rales. CARDIOVASCULAR: Regular rate. S1 and S2 normal without murmurs, rubs, or gallops. ABDOMEN: Soft, nontender, and nondistended. Positive bowel sounds. No evidence of hepatosplenomegaly. Currently, no rebound or guarding noted. EXTREMITIES: Negative for clubbing, cyanosis, or edema. RECTAL: Refused. GENITAL: Refused. NEUROLOGIC: Cranial nerves II through XII are grossly intact without focal deficits. Motor strength is 5/5, bilaterally intact. Deep tendon reflexes are 2+, plantar. LABORATORY AND DIAGNOSTIC STUDIES: WBC 13.5, hemoglobin 15.0, hematocrit 45.2, and platelets 252,000. Sodium 136, potassium 4.0, chloride 103, CO2 27, BUN 11, creatinine 1.3, and glucose 109. Urinalysis showed 2+ occult blood, 5-10 rbc's, and wbc's too numerous to count. ASSESSMENT: This is a 73-year-old male with: 1. Urinary tract infection. 2. Dysuria. 3. Gastritis. 4. Duodenitis. 5. Hypertension. 6. Hypertensive heart disease. 7. History of renal cell cancer. 8. Chronic obstructive pulmonary disease. 9. Hypercholesterolemia. 10. Benign prostatic hypertrophy. 11. Hepatitis C. 12. Anxiety. 13. Depression. TREATMENT: 1. Urinary tract infection/dysuria. The patient has been started empirically on cefepime and vancomycin. A urine culture is pending. Await culture and sensitivity results. 2. Gastritis/duodenitis. The patient is status post endoscopy during the April 2018 admission. The patient remained on Protonix 40 mg p.o. daily. 3. Hypertension. Continue amlodipine as above. 4. Hypertensive heart disease. 5. History of renal cell cancer, status post partial nephrectomy. 6. Chronic obstructive pulmonary disease. 7. Hypercholesterolemia. Continue Zocor as above. 8. Benign prostatic hypertrophy. 9. Hepatitis C. 10. Anxiety. 11. Depression. Leonardo Palencia M.D. DR: MARLEN JOB#: [id number] CC:
[2018-05-20 04:12] VITALS: BP 122/67
[2018-05-20 06:05] LABS: BASOPHILS % (AUTO) 1.7 % (0.0-2.0); EOSINOPHILS % (AUTO) 1.9 % (0.0-3.0); HEMATOCRIT 41.3 % (42.0-52.0); LYMPHOCYTES % (AUTO) 21.7 % (20.0-45.0); MEAN CORPUSCULAR VOLUME 92 FL (80-99); NEUTROPHILS % (AUTO) 67.8 % (45.0-75.0); PLATELET COUNT 263 K/UL (150-450); RED BLOOD COUNT 4.48 M/UL (4.70-6.10); RED CELL DISTRIBUTION WIDTH 11.7 % (11.6-14.8); WHITE BLOOD COUNT 5.5 K/UL (4.8-10.8)
[2018-05-20 06:15] LABS: ANION GAP 6 mmol/L (5-15); BLOOD UREA NITROGEN 10 mg/dL (7-18); CALCIUM 9.1 MG/DL (8.5-10.1); CARBON DIOXIDE 28 MMOL/L (21-32); CHLORIDE 105 MMOL/L (98-107); CREATININE 1.1 MG/DL (0.55-1.30); SODIUM 139 MMOL/L (136-145)
[2018-05-20] MEDS: Vancomycin 750mg/NS 250ml IVPB SCH (06:35)
[2018-05-20 08:00] VITALS: BP 126/72
[2018-05-20] MEDS: Heparin 5000 units/ml inj SUBQ SCH ×2 (08:52→20:34)
[2018-05-20 11:43] VITALS: BP 117/73
--- NOTE | 2018-05-20 12:12 | Infectious Diseases Prog Note ---
Assessment/Plan Assessment/Plan 73 yo male with who presented to the ED on 05/18/18 with dysuria and was found to have UTI # UTI Positive UA and dysuria - Urine culture 05/18/18 GNR # COPD # Hepatitis C # Renal cell carcinoma # Anxiety disorder # BPH # Hyperlipidemia # Hx of DVT # Hypertensive hypertrophic cardiomyopathy # Hypertension Plan: - Continue Cefepime #1 pending cultures D/C 05/20 SP Vancomycin #2 - f/u Urine cultures - Monitor CBC and tems - Supportive care ~ Thank you for consulting us for the care of this patient. We will continue to follow with you. Subjective Allergies: Coded Allergies: No Known Allergies (Unverified , 10/27/12) Subjective Patient reports that dysuria improved No fevers Objective Vital Signs Last 24 Hour Vital Signs Date Time Temp Pulse Resp B/P (MAP) Pulse Ox O2 Delivery O2 Flow Rate FiO2 05/20/18 11:43 98.2 69 18 117/73 (88) 93 98.2 05/20/18 08:51 75 126/72 05/20/18 08:00 98.2 75 18 126/72 (90) 95 98.2 05/20/18 04:12 98.1 71 19 122/67 (85) 97 98.1 05/20/18 00:16 98.2 69 18 122/69 (86) 98 98.2 05/19/18 21:00 Room Air 05/19/18 20:03 98.1 73 19 124/75 (91) 97 98.1 05/19/18 17:49 98.3 05/19/18 17:19 98.3 05/19/18 15:56 98.3 71 18 124/73 (90) 96 98.3 05/19/18 13:09 97.6 05/19/18 12:39 97.6 Height (Feet): 5 Height (Inches): 8.00 Weight (Pounds): 199 Objective Gen: NAD HEENT: NCAT, MMM, EOMI LUNGS: CTAB, No W/C, No Accessory muscle use CARDS: RRR, S1, S2, No M/R/G ABD: Soft, Suprapubic tenderness improved, ND Ext: C/C/E, Pulses 2+ B/L (DP, Rad): NEURO: A/O x 4, Strength and Sensation Grossly intact Microbiology Date/Time Source Procedure Growth Status 05/18/18 13:55 Blood Blood Culture - Preliminary NO GROWTH AFTER 24 HOURS Resulted 05/18/18 13:40 Blood Blood Culture - Preliminary NO GROWTH AFTER 24 HOURS Resulted 05/19/18 07:00 Indwelling Cath Urine Culture - Preliminary NO GROWTH Resulted 05/18/18 13:35 Urine,Clean Catch Urine Culture - Preliminary Gram Negative Bacillus 1 Resulted Laboratory Tests Test 05/20/18 05:48 White Blood Count 5.5 K/UL (4.8-10.8) Red Blood Count 4.48 M/UL (4.70-6.10) L Hemoglobin 14.0 G/DL (14.2-18.0) L Hematocrit 41.3 % (42.0-52.0) L Mean Corpuscular Volume 92 FL (80-99) Mean Corpuscular Hemoglobin 31.1 PG (27.0-31.0) H Mean Corpuscular Hemoglobin Concent 33.8 G/DL (32.0-36.0) Red Cell Distribution Width 11.7 % (11.6-14.8) Platelet Count 263 K/UL (150-450) Mean Platelet Volume 7.0 FL (6.5-10.1) Neutrophils (%) (Auto) 67.8 % (45.0-75.0) Lymphocytes (%) (Auto) 21.7 % (20.0-45.0) Monocytes (%) (Auto) 7.0 % (1.0-10.0) Eosinophils (%) (Auto) 1.9 % (0.0-3.0) Basophils (%) (Auto) 1.7 % (0.0-2.0) Sodium Level 139 MMOL/L (136-145) Potassium Level 4.0 MMOL/L (3.5-5.1) Chloride Level 105 MMOL/L (98-107) Carbon Dioxide Level 28 MMOL/L (21-32) Anion Gap 6 mmol/L (5-15) Blood Urea Nitrogen 10 mg/dL (7-18) Creatinine 1.1 MG/DL (0.55-1.30) Estimat Glomerular Filtration Rate mL/min (>60) Glucose Level 116 MG/DL (74-106) H Calcium Level 9.1 MG/DL (8.5-10.1) Vancomycin Level Trough 7.6 ug/mL (5.0-12.0) Current Medications Medications (Trade) Dose Ordered Sig/Felipe Route PRN Reason Start Time Stop Time Status Last Admin Dose Admin Acetaminophen (Tylenol) 650 mg Q4H PRN ORAL fever 05/18/18 16:30 06/17/18 16:29 05/19/18 08:53 Albuterol/ Ipratropium (Albuterol/ Ipratropium) 3 ml Q4H PRN HHN Shortness of Breath 05/18/18 16:30 05/23/18 16:29 Amlodipine Besylate (Norvasc) 5 mg DAILY ORAL 05/20/18 09:00 06/19/18 08:59 05/20/18 08:51 Cefepime HCl 2 gm/ Dextrose 110 ml @ 220 mls/hr Q24H IV 05/18/18 21:00 05/25/18 20:59 05/19/18 17:14 Colchicine (Colchicine) 0.6 mg DAILY ORAL 05/20/18 09:00 06/19/18 08:59 05/20/18 08:51 Heparin Sodium (Porcine) (Heparin 5000 units/ml) 5,000 units EVERY 12 HOURS SUBQ 05/18/18 21:00 06/17/18 20:59 05/20/18 08:52 Morphine Sulfate (Morphine Sulfate) 2 mg Q4H PRN IVP Moderate Pain (Pain Scale 4-6) 05/19/18 15:45 05/25/18 16:29 05/19/18 22:20 Ondansetron HCl (Zofran) 4 mg Q6H PRN IVP Nausea & Vomiting 05/18/18 16:30 06/17/18 16:29 Oxycodone HCl (Roxicodone) 30 mg Q6H PRN ORAL Severe Pain (Pain Scale 7-10) 05/19/18 15:45 05/26/18 15:44 Phenazopyridine HCl (Pyridium) 100 mg THREE TIMES A DAY ORAL 05/19/18 18:00 06/18/18 17:59 05/20/18 08:51 Polyethylene Glycol (Miralax) 17 gm DAILYPRN PRN ORAL Constipation 05/18/18 16:30 06/17/18 16:29 Tamsulosin HCl (Flomax) 0.4 mg QHS ORAL 05/19/18 21:00 06/18/18 20:59 05/19/18 22:09 Temazepam (Restoril) 15 mg HSPRN PRN ORAL Insomnia 05/18/18 16:30 05/25/18 16:29 Vancomycin HCl (Vanco rx to dose) 1 ea DAILY PRN MISC per rx protocol 05/18/18 18:00 06/17/18 17:59 Vancomycin HCl/ Dextrose 250 ml @ 166.667 mls/hr Q12H IVPB 05/20/18 14:00 05/25/18 13:59 Talib Wyatt M.D. May 20, 2018 12:12
--- NOTE | 2018-05-20 13:17 | Internal Med Progress Note ---
Subjective Date of Service: May 20, 2018 Physician Name Leonardo Palencia Attending Physician Jaylen Lara MD Current Medications Medications (Trade) Dose Ordered Sig/Felipe Route PRN Reason Start Time Stop Time Status Last Admin Dose Admin Acetaminophen (Tylenol) 650 mg Q4H PRN ORAL fever 05/18/18 16:30 06/17/18 16:29 05/19/18 08:53 Albuterol/ Ipratropium (Albuterol/ Ipratropium) 3 ml Q4H PRN HHN Shortness of Breath 05/18/18 16:30 05/23/18 16:29 Amlodipine Besylate (Norvasc) 5 mg DAILY ORAL 05/20/18 09:00 06/19/18 08:59 05/20/18 08:51 Cefepime HCl 2 gm/ Dextrose 110 ml @ 220 mls/hr Q24H IV 05/18/18 21:00 05/25/18 20:59 05/19/18 17:14 Colchicine (Colchicine) 0.6 mg DAILY ORAL 05/20/18 09:00 06/19/18 08:59 05/20/18 08:51 Heparin Sodium (Porcine) (Heparin 5000 units/ml) 5,000 units EVERY 12 HOURS SUBQ 05/18/18 21:00 06/17/18 20:59 05/20/18 08:52 Morphine Sulfate (Morphine Sulfate) 2 mg Q4H PRN IVP Moderate Pain (Pain Scale 4-6) 05/19/18 15:45 05/25/18 16:29 05/19/18 22:20 Ondansetron HCl (Zofran) 4 mg Q6H PRN IVP Nausea & Vomiting 05/18/18 16:30 06/17/18 16:29 Oxycodone HCl (Roxicodone) 30 mg Q6H PRN ORAL Severe Pain (Pain Scale 7-10) 05/19/18 15:45 05/26/18 15:44 Phenazopyridine HCl (Pyridium) 100 mg THREE TIMES A DAY ORAL 05/19/18 18:00 06/18/18 17:59 05/20/18 12:27 Polyethylene Glycol (Miralax) 17 gm DAILYPRN PRN ORAL Constipation 05/18/18 16:30 06/17/18 16:29 Tamsulosin HCl (Flomax) 0.4 mg QHS ORAL 05/19/18 21:00 06/18/18 20:59 05/19/18 22:09 Temazepam (Restoril) 15 mg HSPRN PRN ORAL Insomnia 05/18/18 16:30 05/25/18 16:29 Allergies: Coded Allergies: No Known Allergies (Unverified , 10/27/12) ROS Limited/Unobtainable: No Constitutional: Reports: no symptoms HEENT: Reports: no symptoms Cardiovascular: Reports: no symptoms Respiratory: Reports: no symptoms Gastrointestinal/Abdominal: Reports: no symptoms Genitourinary: Reports: burning Neurologic/Psychiatric: Reports: no symptoms Subjective 73 YO M admitted with abdominal pain and dysuria. Now UTI. Cover for Int Med- Dr Lara Objective Last Vital Signs Date Time Temp Pulse Resp B/P (MAP) Pulse Ox O2 Delivery O2 Flow Rate FiO2 05/20/18 11:43 98.2 69 18 117/73 (88) 93 98.2 05/19/18 21:00 Room Air General Appearance: WD/WN, alert, mild distress EENT: PERRL/EOMI, normal ENT inspection, TMs normal Neck: non-tender, normal alignment, supple, normal inspection Cardiovascular: normal peripheral pulses, normal rate, regular rhythm, no gallop/murmur, no JVD Respiratory/Chest: chest wall non-tender, lungs clear, normal breath sounds, no respiratory distress, no accessory muscle use, respiratory distress Abdomen: normal bowel sounds, guarding, tender Extremities: normal range of motion, non-tender 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, no motor/sensory deficits Skin: normal pigmentation, warm/dry Laboratory Tests Test 05/20/18 05:48 White Blood Count 5.5 K/UL (4.8-10.8) Red Blood Count 4.48 M/UL (4.70-6.10) L Hemoglobin 14.0 G/DL (14.2-18.0) L Hematocrit 41.3 % (42.0-52.0) L Mean Corpuscular Volume 92 FL (80-99) Mean Corpuscular Hemoglobin 31.1 PG (27.0-31.0) H Mean Corpuscular Hemoglobin Concent 33.8 G/DL (32.0-36.0) Red Cell Distribution Width 11.7 % (11.6-14.8) Platelet Count 263 K/UL (150-450) Mean Platelet Volume 7.0 FL (6.5-10.1) Neutrophils (%) (Auto) 67.8 % (45.0-75.0) Lymphocytes (%) (Auto) 21.7 % (20.0-45.0) Monocytes (%) (Auto) 7.0 % (1.0-10.0) Eosinophils (%) (Auto) 1.9 % (0.0-3.0) Basophils (%) (Auto) 1.7 % (0.0-2.0) Sodium Level 139 MMOL/L (136-145) Potassium Level 4.0 MMOL/L (3.5-5.1) Chloride Level 105 MMOL/L (98-107) Carbon Dioxide Level 28 MMOL/L (21-32) Anion Gap 6 mmol/L (5-15) Blood Urea Nitrogen 10 mg/dL (7-18) Creatinine 1.1 MG/DL (0.55-1.30) Estimat Glomerular Filtration Rate mL/min (>60) Glucose Level 116 MG/DL (74-106) H Calcium Level 9.1 MG/DL (8.5-10.1) Vancomycin Level Trough 7.6 ug/mL (5.0-12.0) Microbiology Date/Time Source Procedure Growth Status 05/18/18 13:55 Blood Blood Culture - Preliminary NO GROWTH AFTER 24 HOURS Resulted 05/18/18 13:40 Blood Blood Culture - Preliminary NO GROWTH AFTER 24 HOURS Resulted 05/19/18 07:00 Indwelling Cath Urine Culture - Preliminary NO GROWTH Resulted 05/18/18 13:35 Urine,Clean Catch Urine Culture - Preliminary Gram Negative Bacillus 1 Resulted Intake and Output 05/19/18 05/20/18 19:00 07:00 Intake Total 840 ml Output Total 400 ml 850 ml Balance -400 ml -10 ml Intake Oral 840 ml Output Urine Total 400 ml 850 ml # Voids 3 7 Assessment/Plan Problem List: (1) Dysuria (2) Groin pain (3) Complicated UTI (urinary tract infection) Assessment & Plan: Gram neg jaqueline. Await culture results. Continue cefepime per ID (4) Hypertensive hypertrophic cardiomyopathy, without heart failure (5) Abdominal pain (6) HTN (hypertension) Assessment & Plan: Continue amlodipine (7) COPD exacerbation (8) Hypercholesteremia (9) BPH (benign prostatic hypertrophy) Assessment & Plan: continue flomax (10) Hepatitis C (11) Gastritis Status: progressing Leonardo Palencia MD May 20, 2018 13:17
[2018-05-20] MEDS ORDERED: Vancomycin 1250mg/D5W 250ml IVPB SCH (14:00)
[2018-05-20 16:00] VITALS: BP 127/73
--- NOTE | 2018-05-20 16:07 | Consultation ---
History of Present Illness General Date patient seen: May 20, 2018 Chief Complaint: Male Urogenital Problems Reason for Consultation: UTI Present Illness HPI 73-year-old male with mmp, who presents with chief complaint of burning on urination. the pt has anxiety and at time anxiety at night. no behavioral issues Allergies: Coded Allergies: No Known Allergies (Unverified , 10/27/12) Medication History Scheduled Amlodipine Besylate* (Amlodipine Besylate*), 5 MG ORAL DAILY, (Reported) Cholecalciferol (Vitamin D3)* (Vitamin D*), 2,000 UNITS ORAL DAILY, (Reported) Colchicine (Colcrys), 0.6 MG ORAL DAILY Ibuprofen* (Motrin*), 800 MG ORAL Q6H Pantoprazole* (Protonix*), 40 MG ORAL DAILY Rivaroxaban (Xarelto*), Unknown Dose ORAL DAILY, (Reported) Simvastatin (Zocor), 40 MG PO QHS, (Reported) Tamsulosin HCl (Flomax), 0.4 MG PO QHS, (Reported) Scheduled PRN Oxycodone Hcl* (Roxicodone*), 30 MG ORAL Q6H PRN for For Pain, (Reported) Tizanidine Hcl* (Zanaflex*), Unknown Dose ORAL THREE TIMES A DAY PRN for For Pain, (Reported) Patient History History Provided By: Patient Healthcare decision maker patient Resuscitation status Advanced Directive on File Past Medical/Surgical History Past Medical/Surgical History: (1) Deep vein thrombosis (DVT) of left lower extremity (2) Chest pain of uncertain etiology (3) Epigastric abdominal pain (4) Chest pain (5) Abdominal pain (6) Urinary tract infection (7) Dizziness (8) Ataxia (9) Dyspnea (10) Flank pain (11) CHF (congestive heart failure) (12) Weakness (13) Hypotension (14) ACS (acute coronary syndrome) (15) Chest pain, atypical (16) Proteus mirabilis infection (17) Laceration of finger with delay in treatment (18) Complicated UTI (urinary tract infection) (19) Pyelonephritis, acute (20) Low back pain (21) COPD (chronic obstructive pulmonary disease) (22) Renal cell carcinoma (23) Diabetes (24) Costochondritis (25) Hepatitis C (26) DVT of leg (deep venous thrombosis) (27) BPH (benign prostatic hypertrophy) (28) Pyelonephritis (29) Dysuria (30) Gastritis (31) Hypercholesteremia (32) Groin pain (33) Abdominal pain (34) HTN (hypertension) (35) COPD exacerbation (36) Hypertensive hypertrophic cardiomyopathy, without heart failure Review of Systems Psychiatric: Reports: prior hx, anxiety Physical Exam General Appearance: no apparent distress, alert Neurologic: oriented x 3, depressed affect Last 24 Hour Vital Signs Date Time Temp Pulse Resp B/P (MAP) Pulse Ox O2 Delivery O2 Flow Rate FiO2 05/20/18 11:43 98.2 69 18 117/73 (88) 93 98.2 05/20/18 08:51 75 126/72 05/20/18 08:00 98.2 75 18 126/72 (90) 95 98.2 05/20/18 04:12 98.1 71 19 122/67 (85) 97 98.1 05/20/18 00:16 98.2 69 18 122/69 (86) 98 98.2 05/19/18 21:00 Room Air 05/19/18 20:03 98.1 73 19 124/75 (91) 97 98.1 05/19/18 17:49 98.3 05/19/18 17:19 98.3 Intake and Output 05/19/18 05/20/18 19:00 07:00 Intake Total 840 ml Output Total 400 ml 850 ml Balance -400 ml -10 ml Intake Oral 840 ml Output Urine Total 400 ml 850 ml # Voids 3 7 Laboratory Tests Test 05/20/18 05:48 White Blood Count 5.5 K/UL (4.8-10.8) Red Blood Count 4.48 M/UL (4.70-6.10) L Hemoglobin 14.0 G/DL (14.2-18.0) L Hematocrit 41.3 % (42.0-52.0) L Mean Corpuscular Volume 92 FL (80-99) Mean Corpuscular Hemoglobin 31.1 PG (27.0-31.0) H Mean Corpuscular Hemoglobin Concent 33.8 G/DL (32.0-36.0) Red Cell Distribution Width 11.7 % (11.6-14.8) Platelet Count 263 K/UL (150-450) Mean Platelet Volume 7.0 FL (6.5-10.1) Neutrophils (%) (Auto) 67.8 % (45.0-75.0) Lymphocytes (%) (Auto) 21.7 % (20.0-45.0) Monocytes (%) (Auto) 7.0 % (1.0-10.0) Eosinophils (%) (Auto) 1.9 % (0.0-3.0) Basophils (%) (Auto) 1.7 % (0.0-2.0) Sodium Level 139 MMOL/L (136-145) Potassium Level 4.0 MMOL/L (3.5-5.1) Chloride Level 105 MMOL/L (98-107) Carbon Dioxide Level 28 MMOL/L (21-32) Anion Gap 6 mmol/L (5-15) Blood Urea Nitrogen 10 mg/dL (7-18) Creatinine 1.1 MG/DL (0.55-1.30) Estimat Glomerular Filtration Rate mL/min (>60) Glucose Level 116 MG/DL (74-106) H Calcium Level 9.1 MG/DL (8.5-10.1) Vancomycin Level Trough 7.6 ug/mL (5.0-12.0) Height (Feet): 5 Height (Inches): 8.00 Weight (Pounds): 199 Medications Current Medications Medications (Trade) Dose Ordered Sig/Felipe Route PRN Reason Start Time Stop Time Status Last Admin Dose Admin Acetaminophen (Tylenol) 650 mg Q4H PRN ORAL fever 05/18/18 16:30 06/17/18 16:29 05/19/18 08:53 Albuterol/ Ipratropium (Albuterol/ Ipratropium) 3 ml Q4H PRN HHN Shortness of Breath 05/18/18 16:30 05/23/18 16:29 Amlodipine Besylate (Norvasc) 5 mg DAILY ORAL 05/20/18 09:00 06/19/18 08:59 05/20/18 08:51 Cefepime HCl 2 gm/ Dextrose 110 ml @ 220 mls/hr Q24H IV 05/18/18 21:00 05/25/18 20:59 05/19/18 17:14 Colchicine (Colchicine) 0.6 mg DAILY ORAL 05/20/18 09:00 06/19/18 08:59 05/20/18 08:51 Heparin Sodium (Porcine) (Heparin 5000 units/ml) 5,000 units EVERY 12 HOURS SUBQ 05/18/18 21:00 06/17/18 20:59 05/20/18 08:52 Morphine Sulfate (Morphine Sulfate) 2 mg Q4H PRN IVP Moderate Pain (Pain Scale 4-6) 05/19/18 15:45 05/25/18 16:29 05/19/18 22:20 Ondansetron HCl (Zofran) 4 mg Q6H PRN IVP Nausea & Vomiting 05/18/18 16:30 06/17/18 16:29 Oxycodone HCl (Roxicodone) 30 mg Q6H PRN ORAL Severe Pain (Pain Scale 7-10) 05/19/18 15:45 05/26/18 15:44 Phenazopyridine HCl (Pyridium) 100 mg THREE TIMES A DAY ORAL 05/19/18 18:00 06/18/18 17:59 05/20/18 12:27 Polyethylene Glycol (Miralax) 17 gm DAILYPRN PRN ORAL Constipation 05/18/18 16:30 06/17/18 16:29 Tamsulosin HCl (Flomax) 0.4 mg QHS ORAL 05/19/18 21:00 06/18/18 20:59 05/19/18 22:09 Temazepam (Restoril) 15 mg HSPRN PRN ORAL Insomnia 05/18/18 16:30 05/25/18 16:29 Assessment/Plan Assessment/Plan anxiety d/o insomnia cont restoril provided ro/Angelika Noel MD May 20, 2018 16:07
--- NOTE | 2018-05-20 17:06 | Pulmonology Progress Note ---
Assessment/Plan Problems: (1) Pyelonephritis (2) COPD (chronic obstructive pulmonary disease) (3) Hepatitis C (4) Diabetes (5) BPH (benign prostatic hypertrophy) Assessment/Plan improving check sensitivity of GNR Pyruvate for symptomatic treatment sliding scale f/u ID recommendations Subjective ROS Limited/Unobtainable: No Constitutional: Reports: no symptoms HEENT: Repors: no symptoms Respiratory: Reports: no symptoms Allergies: Coded Allergies: No Known Allergies (Unverified , 10/27/12) Objective Last 24 Hour Vital Signs Date Time Temp Pulse Resp B/P (MAP) Pulse Ox O2 Delivery O2 Flow Rate FiO2 05/20/18 16:00 98.3 81 18 127/73 (91) 98 98.3 05/20/18 11:43 98.2 69 18 117/73 (88) 93 98.2 05/20/18 08:51 75 126/72 05/20/18 08:00 98.2 75 18 126/72 (90) 95 98.2 05/20/18 04:12 98.1 71 19 122/67 (85) 97 98.1 05/20/18 00:16 98.2 69 18 122/69 (86) 98 98.2 05/19/18 21:00 Room Air 05/19/18 20:03 98.1 73 19 124/75 (91) 97 98.1 05/19/18 17:49 98.3 05/19/18 17:19 98.3 Intake and Output 05/19/18 05/20/18 19:00 07:00 Intake Total 840 ml Output Total 400 ml 850 ml Balance -400 ml -10 ml Intake Oral 840 ml Output Urine Total 400 ml 850 ml # Voids 3 7 General Appearance: WD/WN HEENT: normocephalic, anicteric Respiratory/Chest: chest wall non-tender, lungs clear, normal breath sounds Cardiovascular: normal peripheral pulses, normal rate Abdomen: normal bowel sounds, non distended Extremities: no clubbing Skin: no rash, no ulcers Microbiology Date/Time Source Procedure Growth Status 05/18/18 13:55 Blood Blood Culture - Preliminary NO GROWTH AFTER 24 HOURS Resulted 05/18/18 13:40 Blood Blood Culture - Preliminary NO GROWTH AFTER 24 HOURS Resulted 05/19/18 07:00 Indwelling Cath Urine Culture - Preliminary NO GROWTH Resulted 05/18/18 13:35 Urine,Clean Catch Urine Culture - Preliminary Gram Negative Bacillus 1 Resulted Laboratory Tests 05/20/18 05:48: White Blood Count 5.5, Red Blood Count 4.48L, Hemoglobin 14.0L, Hematocrit 41.3L , Mean Corpuscular Volume 92, Mean Corpuscular Hemoglobin 31.1H, Mean Corpuscular Hemoglobin Concent 33.8, Red Cell Distribution Width 11.7, Platelet Count 263, Mean Platelet Volume 7.0, Neutrophils (%) (Auto) 67.8, Lymphocytes (% ) (Auto) 21.7, Monocytes (%) (Auto) 7.0, Eosinophils (%) (Auto) 1.9, Basophils ( %) (Auto) 1.7, Sodium Level 139, Potassium Level 4.0, Chloride Level 105, Carbon Dioxide Level 28, Anion Gap 6, Blood Urea Nitrogen 10, Creatinine 1.1, Estimat Glomerular Filtration Rate , Glucose Level 116H, Calcium Level 9.1, Vancomycin Level Trough 7.6 Current Medications Medications (Trade) Dose Ordered Sig/Felipe Route PRN Reason Start Time Stop Time Status Last Admin Dose Admin Acetaminophen (Tylenol) 650 mg Q4H PRN ORAL fever 05/18/18 16:30 06/17/18 16:29 05/19/18 08:53 Albuterol/ Ipratropium (Albuterol/ Ipratropium) 3 ml Q4H PRN HHN Shortness of Breath 05/18/18 16:30 05/23/18 16:29 Amlodipine Besylate (Norvasc) 5 mg DAILY ORAL 05/20/18 09:00 06/19/18 08:59 05/20/18 08:51 Cefepime HCl 2 gm/ Dextrose 110 ml @ 220 mls/hr Q24H IV 05/18/18 21:00 05/25/18 20:59 05/19/18 17:14 Colchicine (Colchicine) 0.6 mg DAILY ORAL 05/20/18 09:00 06/19/18 08:59 05/20/18 08:51 Heparin Sodium (Porcine) (Heparin 5000 units/ml) 5,000 units EVERY 12 HOURS SUBQ 05/18/18 21:00 06/17/18 20:59 05/20/18 08:52 Morphine Sulfate (Morphine Sulfate) 2 mg Q4H PRN IVP Moderate Pain (Pain Scale 4-6) 05/19/18 15:45 05/25/18 16:29 05/19/18 22:20 Ondansetron HCl (Zofran) 4 mg Q6H PRN IVP Nausea & Vomiting 05/18/18 16:30 06/17/18 16:29 Oxycodone HCl (Roxicodone) 30 mg Q6H PRN ORAL Severe Pain (Pain Scale 7-10) 05/19/18 15:45 05/26/18 15:44 Phenazopyridine HCl (Pyridium) 100 mg THREE TIMES A DAY ORAL 05/19/18 18:00 06/18/18 17:59 05/20/18 12:27 Polyethylene Glycol (Miralax) 17 gm DAILYPRN PRN ORAL Constipation 05/18/18 16:30 06/17/18 16:29 Tamsulosin HCl (Flomax) 0.4 mg QHS ORAL 05/19/18 21:00 06/18/18 20:59 05/19/18 22:09 Temazepam (Restoril) 15 mg HSPRN PRN ORAL Insomnia 05/18/18 16:30 05/25/18 16:29 Susy Morse MD May 20, 2018 17:06
[2018-05-20] MEDS: Morphine Sulfate 2mg/ml Inj(IV/IM USE ONLY) IVP PRN ×2 (18:20→23:10)
[2018-05-20 20:06] VITALS: BP 114/69
[2018-05-20] MEDS: Tamsulosin 0.4mg cap ORAL SCH (20:31)
[2018-05-20] MEDS: Cefepime HCl 2 GM in D5W 110 ML IV SCH (21:37)
[2018-05-21 00:12] VITALS: BP 120/74
[2018-05-21] MEDS: Morphine Sulfate 2mg/ml Inj(IV/IM USE ONLY) IVP PRN (03:42)
[2018-05-21 04:47] VITALS: BP 142/79
[2018-05-21 08:00] VITALS: BP 120/70
[2018-05-21 08:00] LABS: BASOPHILS % (AUTO) 2.1 % (0.0-2.0); EOSINOPHILS % (AUTO) 2.4 % (0.0-3.0); HEMATOCRIT 41.8 % (42.0-52.0); LYMPHOCYTES % (AUTO) 33.7 % (20.0-45.0); MEAN CORPUSCULAR VOLUME 92 FL (80-99); MONOCYTES % (AUTO) 9.1 % (1.0-10.0); NEUTROPHILS % (AUTO) 52.7 % (45.0-75.0); PLATELET COUNT 242 K/UL (150-450); RED BLOOD COUNT 4.52 M/UL (4.70-6.10); RED CELL DISTRIBUTION WIDTH 11.8 % (11.6-14.8); WHITE BLOOD COUNT 4.7 K/UL (4.8-10.8)
[2018-05-21] MEDS: Heparin 5000 units/ml inj SUBQ SCH ×2 (08:12→20:43)
[2018-05-21 08:23] LABS: ANION GAP 7 mmol/L (5-15); BLOOD UREA NITROGEN 11 mg/dL (7-18); CALCIUM 9.1 MG/DL (8.5-10.1); CARBON DIOXIDE 28 MMOL/L (21-32); CHLORIDE 106 MMOL/L (98-107); CREATININE 1.1 MG/DL (0.55-1.30); POTASSIUM 4.2 MMOL/L (3.5-5.1); SODIUM 141 MMOL/L (136-145)
--- NOTE | 2018-05-21 11:35 | Infectious Diseases Prog Note ---
Assessment/Plan Assessment/Plan 73 yo male with who presented to the ED on 05/18/18 with dysuria and was found to have UTI # UTI Positive UA and dysuria - Urine culture 05/18/18 P. mirabilis (S cephalosporins, Zosyn; R Bactrim, levo, amp, Genta) -CT abd/p: No acute abnormality. Colonic diverticulosis. No evidence of diverticulitis. Evidence of prior left lower pole partial nephrectomy with surrounding dystrophic calcifications, unchanged from previous study of 2013. No evidence of recurrent mass. Prostatomegaly. Other findings as noted, including small fat-containing umbilical hernia, posterior pulmonary dependent atelectatic changes and/or fibrotic changes, small pulmonary bullae -Bcx NTD # COPD # Hepatitis C # Renal cell carcinoma # Anxiety disorder # BPH # Hyperlipidemia # Hx of DVT # Hypertensive hypertrophic cardiomyopathy # Hypertension Plan: - Switch Cefepime #11/12 to Ceftriaxone for UTI; upon discharge can be transitioned to PO Keflex 05/20 SP Vancomycin #2 - Monitor CBC and tems - Supportive care ~ Thank you for consulting us for the care of this patient. We will continue to follow with you. Subjective Allergies: Coded Allergies: No Known Allergies (Unverified , 10/27/12) Subjective afebrile no leukocytosis Objective Vital Signs Last 24 Hour Vital Signs Date Time Temp Pulse Resp B/P (MAP) Pulse Ox O2 Delivery O2 Flow Rate FiO2 05/21/18 09:00 Room Air 05/21/18 08:11 74 120/70 05/21/18 08:00 98.1 74 20 120/70 (87) 94 98.1 05/21/18 04:47 98.0 69 17 142/79 (100) 97 98.0 05/21/18 04:12 98.4 05/21/18 00:12 98.4 75 18 120/74 (89) 96 98.4 05/20/18 21:43 Room Air 05/20/18 20:06 98.2 68 17 114/69 (84) 96 98.2 05/20/18 16:00 98.3 81 18 127/73 (91) 98 98.3 05/20/18 11:43 98.2 69 18 117/73 (88) 93 98.2 Height (Feet): 5 Height (Inches): 8.00 Weight (Pounds): 199 Objective Gen: NAD HEENT: NCAT, MMM, EOMI LUNGS: CTAB, No W/C, No Accessory muscle use CARDS: RRR, S1, S2, No M/R/G ABD: Soft, Suprapubic tenderness improved, ND Ext: C/C/E, Pulses 2+ B/L (DP, Rad): NEURO: A/O x 4, Strength and Sensation Grossly intact Microbiology Date/Time Source Procedure Growth Status 05/19/18 07:20 Blood Blood Culture - Preliminary NO GROWTH AFTER 24 HOURS Resulted 05/19/18 07:10 Blood Blood Culture - Preliminary NO GROWTH AFTER 24 HOURS Resulted 05/18/18 13:55 Blood Blood Culture - Preliminary NO GROWTH AFTER 48 HOURS Resulted 05/18/18 13:40 Blood Blood Culture - Preliminary NO GROWTH AFTER 48 HOURS Resulted 05/19/18 07:00 Indwelling Cath Urine Culture - Preliminary NO GROWTH Resulted 05/18/18 13:35 Urine,Clean Catch Urine Culture - Final Proteus Mirabilis Complete Laboratory Tests Test 05/21/18 07:30 White Blood Count 4.7 K/UL (4.8-10.8) L Red Blood Count 4.52 M/UL (4.70-6.10) L Hemoglobin 14.0 G/DL (14.2-18.0) L Hematocrit 41.8 % (42.0-52.0) L Mean Corpuscular Volume 92 FL (80-99) Mean Corpuscular Hemoglobin 30.9 PG (27.0-31.0) Mean Corpuscular Hemoglobin Concent 33.4 G/DL (32.0-36.0) Red Cell Distribution Width 11.8 % (11.6-14.8) Platelet Count 242 K/UL (150-450) Mean Platelet Volume 6.1 FL (6.5-10.1) L Neutrophils (%) (Auto) 52.7 % (45.0-75.0) Lymphocytes (%) (Auto) 33.7 % (20.0-45.0) Monocytes (%) (Auto) 9.1 % (1.0-10.0) Eosinophils (%) (Auto) 2.4 % (0.0-3.0) Basophils (%) (Auto) 2.1 % (0.0-2.0) H Sodium Level 141 MMOL/L (136-145) Potassium Level 4.2 MMOL/L (3.5-5.1) Chloride Level 106 MMOL/L (98-107) Carbon Dioxide Level 28 MMOL/L (21-32) Anion Gap 7 mmol/L (5-15) Blood Urea Nitrogen 11 mg/dL (7-18) Creatinine 1.1 MG/DL (0.55-1.30) Estimat Glomerular Filtration Rate mL/min (>60) Glucose Level 108 MG/DL (74-106) H Calcium Level 9.1 MG/DL (8.5-10.1) Current Medications Medications (Trade) Dose Ordered Sig/Felipe Route PRN Reason Start Time Stop Time Status Last Admin Dose Admin Acetaminophen (Tylenol) 650 mg Q4H PRN ORAL fever 05/18/18 16:30 06/17/18 16:29 05/19/18 08:53 Albuterol/ Ipratropium (Albuterol/ Ipratropium) 3 ml Q4H PRN HHN Shortness of Breath 05/18/18 16:30 05/23/18 16:29 Amlodipine Besylate (Norvasc) 5 mg DAILY ORAL 05/20/18 09:00 06/19/18 08:59 05/21/18 08:11 Cefepime HCl 2 gm/ Dextrose 110 ml @ 220 mls/hr Q24H IV 05/18/18 21:00 05/25/18 20:59 05/20/18 21:37 Colchicine (Colchicine) 0.6 mg DAILY ORAL 05/20/18 09:00 06/19/18 08:59 05/21/18 08:11 Heparin Sodium (Porcine) (Heparin 5000 units/ml) 5,000 units EVERY 12 HOURS SUBQ 05/18/18 21:00 06/17/18 20:59 05/21/18 08:12 Morphine Sulfate (Morphine Sulfate) 2 mg Q4H PRN IVP Moderate Pain (Pain Scale 4-6) 05/19/18 15:45 05/25/18 16:29 05/21/18 03:42 Ondansetron HCl (Zofran) 4 mg Q6H PRN IVP Nausea & Vomiting 05/18/18 16:30 06/17/18 16:29 Oxycodone HCl (Roxicodone) 30 mg Q6H PRN ORAL Severe Pain (Pain Scale 7-10) 05/19/18 15:45 05/26/18 15:44 Phenazopyridine HCl (Pyridium) 100 mg THREE TIMES A DAY ORAL 05/19/18 18:00 06/18/18 17:59 05/21/18 08:11 Polyethylene Glycol (Miralax) 17 gm DAILYPRN PRN ORAL Constipation 05/18/18 16:30 06/17/18 16:29 Tamsulosin HCl (Flomax) 0.4 mg QHS ORAL 05/19/18 21:00 06/18/18 20:59 05/20/18 20:31 Temazepam (Restoril) 15 mg HSPRN PRN ORAL Insomnia 05/18/18 16:30 05/25/18 16:29 Precious Cary M.D. May 21, 2018 11:35
[2018-05-21 12:00] VITALS: BP 124/76
[2018-05-21] MEDS: cefTRIAXone 1 GM in D5W 55 ML IVPB SCH (13:35)
[2018-05-21] MEDS ORDERED: PHENAZOPYRIDIN100 MG ORAL (14:41)
[2018-05-21] MEDS ORDERED: CEPHALEXIN500 MG ORAL (14:41)
--- NOTE | 2018-05-21 14:55 | Consultation ---
History of Present Illness General Date patient seen: May 21, 2018 Chief Complaint: Male Urogenital Problems Reason for Consultation: right axilla absecss Present Illness HPI 73 year old male with multiple medical comorbidities recently diagnosed with UTI here for medical treatment. Last week was noted to have right axilla abscess which was I&D by PCP. since has been healing well but has some tenderness and induration. surgery called to evaluate and ensure no recurrence or further surgical intervention needed. patient seen, chart reviewed, patient examined. states much better than prior but excelsior machine tender. no drainage. no n/v/ f/c. was given oral abx prior. Allergies: Coded Allergies: No Known Allergies (Unverified , 10/27/12) Medication History Scheduled Amlodipine Besylate* (Amlodipine Besylate*), 5 MG ORAL DAILY, (Reported) Cholecalciferol (Vitamin D3)* (Vitamin D*), 2,000 UNITS ORAL DAILY, (Reported) Colchicine (Colcrys), 0.6 MG ORAL DAILY Ibuprofen* (Motrin*), 800 MG ORAL Q6H Pantoprazole* (Protonix*), 40 MG ORAL DAILY Rivaroxaban (Xarelto*), Unknown Dose ORAL DAILY, (Reported) Simvastatin (Zocor), 40 MG PO QHS, (Reported) Tamsulosin HCl (Flomax), 0.4 MG PO QHS, (Reported) Scheduled PRN Oxycodone Hcl* (Roxicodone*), 30 MG ORAL Q6H PRN for For Pain, (Reported) Tizanidine Hcl* (Zanaflex*), Unknown Dose ORAL THREE TIMES A DAY PRN for For Pain, (Reported) Patient History History Provided By: Patient, Medical Record, PMD Healthcare decision maker patient Resuscitation status Advanced Directive on File Past Medical/Surgical History Past Medical/Surgical History: (1) Complicated UTI (urinary tract infection) (2) Low back pain (3) COPD (chronic obstructive pulmonary disease) (4) Renal cell carcinoma (5) Diabetes (6) Costochondritis (7) Hepatitis C (8) DVT of leg (deep venous thrombosis) (9) BPH (benign prostatic hypertrophy) (10) Pyelonephritis (11) Dysuria (12) Gastritis (13) Hypercholesteremia (14) Groin pain (15) Abdominal pain (16) HTN (hypertension) (17) COPD exacerbation (18) Hypertensive hypertrophic cardiomyopathy, without heart failure (19) Urinary tract infection (20) Dizziness (21) Ataxia (22) Dyspnea (23) Flank pain (24) CHF (congestive heart failure) (25) Pyelonephritis, acute (26) Weakness (27) Epigastric abdominal pain (28) Abdominal pain (29) Chest pain (30) Hypotension (31) ACS (acute coronary syndrome) (32) Chest pain, atypical (33) Proteus mirabilis infection (34) Laceration of finger with delay in treatment (35) Chest pain of uncertain etiology (36) Deep vein thrombosis (DVT) of left lower extremity (37) Abscess of right axilla Review of Systems All Other Systems: negative except mentioned in HPI Physical Exam General Appearance: no apparent distress, alert Lines, tubes and drains: peripheral HEENT: normocephalic, atraumatic, mucous membranes moist Neck: normal inspection Respiratory/Chest: normal breath sounds, no respiratory distress, no accessory muscle use Cardiovascular/Chest: normal peripheral pulses, normal rate Abdomen: normal bowel sounds, non tender, soft, no organomegaly, no mass Extremities: non-tender, normal inspection Skin Exam: normal pigmentation, warm/dry Neurologic: alert, oriented x 3 Physical Exam Narrative small right axilla resolving abscess Last 24 Hour Vital Signs Date Time Temp Pulse Resp B/P (MAP) Pulse Ox O2 Delivery O2 Flow Rate FiO2 05/21/18 12:00 98.4 77 20 124/76 (92) 98 98.4 05/21/18 09:00 Room Air 05/21/18 08:11 74 120/70 05/21/18 08:00 98.1 74 20 120/70 (87) 94 98.1 05/21/18 04:47 98.0 69 17 142/79 (100) 97 98.0 05/21/18 04:12 98.4 05/21/18 00:12 98.4 75 18 120/74 (89) 96 98.4 05/20/18 21:43 Room Air 05/20/18 20:06 98.2 68 17 114/69 (84) 96 98.2 05/20/18 16:00 98.3 81 18 127/73 (91) 98 98.3 Intake and Output 05/20/18 05/21/18 19:00 07:00 Intake Total 740 ml 1170 ml Output Total 550 ml 850 ml Balance 190 ml 320 ml Intake Oral 740 ml 950 ml IV Total 220 ml Output Urine Total 550 ml 850 ml # Voids 5 3 # Bowel Movements 3 Laboratory Tests Test 05/21/18 07:30 White Blood Count 4.7 K/UL (4.8-10.8) L Red Blood Count 4.52 M/UL (4.70-6.10) L Hemoglobin 14.0 G/DL (14.2-18.0) L Hematocrit 41.8 % (42.0-52.0) L Mean Corpuscular Volume 92 FL (80-99) Mean Corpuscular Hemoglobin 30.9 PG (27.0-31.0) Mean Corpuscular Hemoglobin Concent 33.4 G/DL (32.0-36.0) Red Cell Distribution Width 11.8 % (11.6-14.8) Platelet Count 242 K/UL (150-450) Mean Platelet Volume 6.1 FL (6.5-10.1) L Neutrophils (%) (Auto) 52.7 % (45.0-75.0) Lymphocytes (%) (Auto) 33.7 % (20.0-45.0) Monocytes (%) (Auto) 9.1 % (1.0-10.0) Eosinophils (%) (Auto) 2.4 % (0.0-3.0) Basophils (%) (Auto) 2.1 % (0.0-2.0) H Sodium Level 141 MMOL/L (136-145) Potassium Level 4.2 MMOL/L (3.5-5.1) Chloride Level 106 MMOL/L (98-107) Carbon Dioxide Level 28 MMOL/L (21-32) Anion Gap 7 mmol/L (5-15) Blood Urea Nitrogen 11 mg/dL (7-18) Creatinine 1.1 MG/DL (0.55-1.30) Estimat Glomerular Filtration Rate mL/min (>60) Glucose Level 108 MG/DL (74-106) H Calcium Level 9.1 MG/DL (8.5-10.1) Height (Feet): 5 Height (Inches): 8.00 Weight (Pounds): 199 Medications Current Medications Medications (Trade) Dose Ordered Sig/Felipe Route PRN Reason Start Time Stop Time Status Last Admin Dose Admin Acetaminophen (Tylenol) 650 mg Q4H PRN ORAL fever 05/18/18 16:30 06/17/18 16:29 05/19/18 08:53 Albuterol/ Ipratropium (Albuterol/ Ipratropium) 3 ml Q4H PRN HHN Shortness of Breath 05/18/18 16:30 05/23/18 16:29 Amlodipine Besylate (Norvasc) 5 mg DAILY ORAL 05/20/18 09:00 06/19/18 08:59 05/21/18 08:11 Ceftriaxone Sodium 1 gm/ Dextrose 55 ml @ 110 mls/hr DAILY IVPB 05/21/18 13:00 05/28/18 12:59 05/21/18 13:35 Colchicine (Colchicine) 0.6 mg DAILY ORAL 05/20/18 09:00 06/19/18 08:59 05/21/18 08:11 Heparin Sodium (Porcine) (Heparin 5000 units/ml) 5,000 units EVERY 12 HOURS SUBQ 05/18/18 21:00 06/17/18 20:59 05/21/18 08:12 Morphine Sulfate (Morphine Sulfate) 2 mg Q4H PRN IVP Moderate Pain (Pain Scale 4-6) 05/19/18 15:45 05/25/18 16:29 05/21/18 03:42 Ondansetron HCl (Zofran) 4 mg Q6H PRN IVP Nausea & Vomiting 05/18/18 16:30 06/17/18 16:29 Oxycodone HCl (Roxicodone) 30 mg Q6H PRN ORAL Severe Pain (Pain Scale 7-10) 05/19/18 15:45 05/26/18 15:44 Phenazopyridine HCl (Pyridium) 100 mg THREE TIMES A DAY ORAL 05/19/18 18:00 06/18/18 17:59 05/21/18 12:59 Polyethylene Glycol (Miralax) 17 gm DAILYPRN PRN ORAL Constipation 05/18/18 16:30 06/17/18 16:29 Tamsulosin HCl (Flomax) 0.4 mg QHS ORAL 05/19/18 21:00 06/18/18 20:59 05/20/18 20:31 Temazepam (Restoril) 15 mg HSPRN PRN ORAL Insomnia 05/18/18 16:30 05/25/18 16:29 Assessment/Plan Problem List: (1) Abscess of right axilla Assessment & Plan: right axilla abscess s/p I&D prior. still with some tenderness and induration. improved as per report. no drainage. presented to hospital with leukocytosis. dx with UTI. likely etiology of leukocytosis is UTI. abscess healing well after I&D which was adequate. no recurrence currently noted. induration will improve as it has been. no surgical intervention necessary at this time. will follow while in hospital thank you for this consultation ICD Codes: L02.411 - Cutaneous abscess of right axilla SNOMED: [id number] Status: stable Junior Tinajero May 21, 2018 14:55
[2018-05-21 16:00] VITALS: BP 123/75
[2018-05-21] MEDS ORDERED: Lomotil 2.5mg tab ORAL PRN (17:30)
--- NOTE | 2018-05-21 17:48 | Internal Med Progress Note ---
Subjective Date of Service: May 21, 2018 Physician Name Leonardo Palencia Attending Physician Jaylen Lara MD Current Medications Medications (Trade) Dose Ordered Sig/Felipe Route PRN Reason Start Time Stop Time Status Last Admin Dose Admin Acetaminophen (Tylenol) 650 mg Q4H PRN ORAL fever 05/18/18 16:30 06/17/18 16:29 05/19/18 08:53 Albuterol/ Ipratropium (Albuterol/ Ipratropium) 3 ml Q4H PRN HHN Shortness of Breath 05/18/18 16:30 05/23/18 16:29 Amlodipine Besylate (Norvasc) 5 mg DAILY ORAL 05/20/18 09:00 06/19/18 08:59 05/21/18 08:11 Ceftriaxone Sodium 1 gm/ Dextrose 55 ml @ 110 mls/hr DAILY IVPB 05/21/18 13:00 05/28/18 12:59 05/21/18 13:35 Colchicine (Colchicine) 0.6 mg DAILY ORAL 05/20/18 09:00 06/19/18 08:59 05/21/18 08:11 Diphenoxylate HCl/ Atropine (Lomotil) 5 mg Q6H PRN ORAL Diarrhea 05/21/18 17:30 06/20/18 17:29 Heparin Sodium (Porcine) (Heparin 5000 units/ml) 5,000 units EVERY 12 HOURS SUBQ 05/18/18 21:00 06/17/18 20:59 05/21/18 08:12 Morphine Sulfate (Morphine Sulfate) 2 mg Q4H PRN IVP Moderate Pain (Pain Scale 4-6) 05/19/18 15:45 05/25/18 16:29 05/21/18 03:42 Ondansetron HCl (Zofran) 4 mg Q6H PRN IVP Nausea & Vomiting 05/18/18 16:30 06/17/18 16:29 Oxycodone HCl (Roxicodone) 30 mg Q6H PRN ORAL Severe Pain (Pain Scale 7-10) 05/19/18 15:45 05/26/18 15:44 Phenazopyridine HCl (Pyridium) 100 mg THREE TIMES A DAY ORAL 05/19/18 18:00 06/18/18 17:59 05/21/18 12:59 Polyethylene Glycol (Miralax) 17 gm DAILYPRN PRN ORAL Constipation 05/18/18 16:30 06/17/18 16:29 Tamsulosin HCl (Flomax) 0.4 mg QHS ORAL 05/19/18 21:00 06/18/18 20:59 05/20/18 20:31 Temazepam (Restoril) 15 mg HSPRN PRN ORAL Insomnia 05/18/18 16:30 05/25/18 16:29 Allergies: Coded Allergies: No Known Allergies (Unverified , 10/27/12) Subjective 73 YO M admitted with abdominal pain and dysuria. Now UTI. Cover for Int Med- Dr Lara Objective Last Vital Signs Date Time Temp Pulse Resp B/P (MAP) Pulse Ox O2 Delivery O2 Flow Rate FiO2 05/21/18 16:00 98.3 76 20 123/75 (91) 97 98.3 05/21/18 09:00 Room Air Laboratory Tests Test 05/21/18 07:30 White Blood Count 4.7 K/UL (4.8-10.8) L Red Blood Count 4.52 M/UL (4.70-6.10) L Hemoglobin 14.0 G/DL (14.2-18.0) L Hematocrit 41.8 % (42.0-52.0) L Mean Corpuscular Volume 92 FL (80-99) Mean Corpuscular Hemoglobin 30.9 PG (27.0-31.0) Mean Corpuscular Hemoglobin Concent 33.4 G/DL (32.0-36.0) Red Cell Distribution Width 11.8 % (11.6-14.8) Platelet Count 242 K/UL (150-450) Mean Platelet Volume 6.1 FL (6.5-10.1) L Neutrophils (%) (Auto) 52.7 % (45.0-75.0) Lymphocytes (%) (Auto) 33.7 % (20.0-45.0) Monocytes (%) (Auto) 9.1 % (1.0-10.0) Eosinophils (%) (Auto) 2.4 % (0.0-3.0) Basophils (%) (Auto) 2.1 % (0.0-2.0) H Sodium Level 141 MMOL/L (136-145) Potassium Level 4.2 MMOL/L (3.5-5.1) Chloride Level 106 MMOL/L (98-107) Carbon Dioxide Level 28 MMOL/L (21-32) Anion Gap 7 mmol/L (5-15) Blood Urea Nitrogen 11 mg/dL (7-18) Creatinine 1.1 MG/DL (0.55-1.30) Estimat Glomerular Filtration Rate mL/min (>60) Glucose Level 108 MG/DL (74-106) H Calcium Level 9.1 MG/DL (8.5-10.1) Microbiology Date/Time Source Procedure Growth Status 05/19/18 07:20 Blood Blood Culture - Preliminary NO GROWTH AFTER 24 HOURS Resulted 05/19/18 07:10 Blood Blood Culture - Preliminary NO GROWTH AFTER 24 HOURS Resulted 05/19/18 07:00 Indwelling Cath Urine Culture - Preliminary NO GROWTH AFTER 24 HOURS Resulted Intake and Output 05/20/18 05/21/18 19:00 07:00 Intake Total 740 ml 1170 ml Output Total 550 ml 850 ml Balance 190 ml 320 ml Intake Oral 740 ml 950 ml IV Total 220 ml Output Urine Total 550 ml 850 ml # Voids 5 3 # Bowel Movements 3 Objective General Appearance: WD/WN, alert, mild distress EENT: PERRL/EOMI, normal ENT inspection, TMs normal Neck: non-tender, normal alignment, supple, normal inspection Cardiovascular: normal peripheral pulses, normal rate, regular rhythm, no gallop/murmur, no JVD Respiratory/Chest: chest wall non-tender, lungs clear, normal breath sounds, no respiratory distress, no accessory muscle use, respiratory distress Abdomen: normal bowel sounds, guarding, tender Extremities: normal range of motion, non-tender Neurologic: analytical laboratory technician II-XII grossly normal, no motor/sensory deficits Skin: normal pigmentation, warm/dry Assessment/Plan Problem List: (1) Dysuria (2) Groin pain (3) Complicated UTI (urinary tract infection) Assessment & Plan: Proteus. Continue cefepime per ID (4) Hypertensive hypertrophic cardiomyopathy, without heart failure (5) Abdominal pain (6) HTN (hypertension) Assessment & Plan: Continue amlodipine (7) COPD exacerbation (8) Hypercholesteremia (9) BPH (benign prostatic hypertrophy) Assessment & Plan: continue flomax (10) Hepatitis C (11) Gastritis Status: progressing Leonardo Palencia MD May 21, 2018 17:48
--- NOTE | 2018-05-21 19:43 | General Progress Note ---
Subjective Date patient seen: May 21, 2018 Neurologic/Psychiatric: Reports: anxiety, depressed, emotional problems Allergies: Coded Allergies: No Known Allergies (Unverified , 10/27/12) Objective Last 24 Hour Vital Signs Date Time Temp Pulse Resp B/P (MAP) Pulse Ox O2 Delivery O2 Flow Rate FiO2 05/21/18 16:00 98.3 76 20 123/75 (91) 97 98.3 05/21/18 12:00 98.4 77 20 124/76 (92) 98 98.4 05/21/18 09:00 Room Air 05/21/18 08:11 74 120/70 05/21/18 08:00 98.1 74 20 120/70 (87) 94 98.1 05/21/18 04:47 98.0 69 17 142/79 (100) 97 98.0 05/21/18 04:12 98.4 05/21/18 00:12 98.4 75 18 120/74 (89) 96 98.4 05/20/18 21:43 Room Air 05/20/18 20:06 98.2 68 17 114/69 (84) 96 98.2 Intake and Output 05/20/18 05/21/18 19:00 07:00 Intake Total 740 ml 1170 ml Output Total 550 ml 850 ml Balance 190 ml 320 ml Intake Oral 740 ml 950 ml IV Total 220 ml Output Urine Total 550 ml 850 ml # Voids 5 3 # Bowel Movements 3 Laboratory Tests 05/21/18 07:30: White Blood Count 4.7L, Red Blood Count 4.52L, Hemoglobin 14.0L, Hematocrit 41.8L, Mean Corpuscular Volume 92, Mean Corpuscular Hemoglobin 30.9, Mean Corpuscular Hemoglobin Concent 33.4, Red Cell Distribution Width 11.8, Platelet Count 242, Mean Platelet Volume 6.1L, Neutrophils (%) (Auto) 52.7, Lymphocytes ( %) (Auto) 33.7, Monocytes (%) (Auto) 9.1, Eosinophils (%) (Auto) 2.4, Basophils (%) (Auto) 2.1H, Sodium Level 141, Potassium Level 4.2, Chloride Level 106, Carbon Dioxide Level 28, Anion Gap 7, Blood Urea Nitrogen 11, Creatinine 1.1, Estimat Glomerular Filtration Rate , Glucose Level 108H, Calcium Level 9.1 Height (Feet): 5 Height (Inches): 8.00 Weight (Pounds): 199 Angelika Ley MD May 21, 2018 19:43
[2018-05-21 20:00] VITALS: BP 123/75
[2018-05-21] MEDS: Tamsulosin 0.4mg cap ORAL SCH (20:41)
[2018-05-22] VITALS: BP 121/72
[2018-05-22 04:00] VITALS: BP 117/68
[2018-05-22 08:00] VITALS: BP 119/70
[2018-05-22 08:16] LABS: HEMATOCRIT 45.8 % (42.0-52.0); HEMOGLOBIN 15.1 G/DL (14.2-18.0); LYMPHOCYTES % (AUTO) 33.3 % (20.0-45.0); MEAN CORPUSCULAR VOLUME 94 FL (80-99); NEUTROPHILS % (AUTO) 55.7 % (45.0-75.0); PLATELET COUNT 295 K/UL (150-450); RED BLOOD COUNT 4.88 M/UL (4.70-6.10); WHITE BLOOD COUNT 6.1 K/UL (4.8-10.8)
[2018-05-22 08:38] LABS: ANION GAP 8 mmol/L (5-15); BLOOD UREA NITROGEN 12 mg/dL (7-18); CALCIUM 10.1 MG/DL (8.5-10.1); CARBON DIOXIDE 25 MMOL/L (21-32); CHLORIDE 105 MMOL/L (98-107); CREATININE 1.1 MG/DL (0.55-1.30); POTASSIUM 4.2 MMOL/L (3.5-5.1); SODIUM 138 MMOL/L (136-145)
[2018-05-22 08:41] VITALS: BP 119/70
[2018-05-22] MEDS: cefTRIAXone 1 GM in D5W 55 ML IVPB SCH (08:41)
[2018-05-22] MEDS: Heparin 5000 units/ml inj SUBQ SCH (08:49)
--- NOTE | 2018-05-22 11:11 | General Surgery Progress Note ---
General Surgery-Progress Note Subjective Additional Comments no acute events. doing well. comfortable. no n/v/f/c. no pain. wounds clean without drainage Objective Last 24 Hour Vital Signs Date Time Temp Pulse Resp B/P (MAP) Pulse Ox O2 Delivery O2 Flow Rate FiO2 05/22/18 09:00 Room Air 05/22/18 08:41 72 119/70 05/22/18 08:00 98.5 72 19 119/70 (86) 95 98.5 05/22/18 04:00 98.1 68 18 117/68 (84) 99 98.1 05/22/18 00:00 97.7 66 18 121/72 (88) 95 97.7 05/21/18 21:00 Room Air 05/21/18 20:00 98.3 76 20 123/75 (91) 97 98.3 05/21/18 16:00 98.3 76 20 123/75 (91) 97 98.3 05/21/18 12:00 98.4 77 20 124/76 (92) 98 98.4 I&O Intake and Output 05/21/18 05/22/18 19:00 07:00 Intake Total 760 ml 320 ml Output Total 1000 ml 600 ml Balance -240 ml -280 ml Intake Oral 760 ml 320 ml Output Urine Total 1000 ml 600 ml # Voids 1 # Bowel Movements 6 Wound: clean, dry Drains: none Cardiovascular: RSR Respiratory: clear Abdomen: soft, flat, non-tender Extremities: no edema, no tenderness Laboratory Tests Test 05/22/18 07:30 White Blood Count 6.1 K/UL (4.8-10.8) Red Blood Count 4.88 M/UL (4.70-6.10) Hemoglobin 15.1 G/DL (14.2-18.0) Hematocrit 45.8 % (42.0-52.0) Mean Corpuscular Volume 94 FL (80-99) Mean Corpuscular Hemoglobin 30.9 PG (27.0-31.0) Mean Corpuscular Hemoglobin Concent 33.0 G/DL (32.0-36.0) Red Cell Distribution Width 12.0 % (11.6-14.8) Platelet Count 295 K/UL (150-450) Mean Platelet Volume 6.8 FL (6.5-10.1) Neutrophils (%) (Auto) 55.7 % (45.0-75.0) Lymphocytes (%) (Auto) 33.3 % (20.0-45.0) Monocytes (%) (Auto) 7.0 % (1.0-10.0) Eosinophils (%) (Auto) 2.0 % (0.0-3.0) Basophils (%) (Auto) 2.0 % (0.0-2.0) Sodium Level 138 MMOL/L (136-145) Potassium Level 4.2 MMOL/L (3.5-5.1) Chloride Level 105 MMOL/L (98-107) Carbon Dioxide Level 25 MMOL/L (21-32) Anion Gap 8 mmol/L (5-15) Blood Urea Nitrogen 12 mg/dL (7-18) Creatinine 1.1 MG/DL (0.55-1.30) Estimat Glomerular Filtration Rate mL/min (>60) Glucose Level 115 MG/DL (74-106) H Calcium Level 10.1 MG/DL (8.5-10.1) Plan Problems: (1) Abscess of right axilla Assessment & Plan: right axilla abscess s/p I&D prior. still with some tenderness and induration. improved as per report. no drainage. presented to hospital with leukocytosis. dx with UTI. likely etiology of leukocytosis is UTI. abscess healing well after I&D which was adequate. no recurrence currently noted. induration will improve as it has been. no surgical intervention necessary at this time. will follow while in hospital thank you for this consultation Junior Tinajero May 22, 2018 11:11
[2018-05-22] MEDS ORDERED: NS 275ml ONE (12:09)
--- NOTE | 2018-05-22 19:30 | Progress Note ---
DATE: 05/22/2018 SUBJECTIVE: The patient is having some anxiety. No behavior issues. Calm, in no acute distress. He states that he wants to go home. He is cleared from Surgery to . He is able to answer the questions and is compliant with medications. MENTAL STATUS EXAMINATION: The patient is alert and oriented times self, place, and situation he is in. Mood is anxious. Affect is constricted. Congruent with mood. Thought process is concrete. Thought content, no suicidal or homicidal ideations. ASSESSMENT: Anxiety disorder. PLAN: We will continue current medications. Provide the patient with supportive therapy and reality orientation. Angelika Ley M.D. DR: KADE JOB#: [id number] CC:
--- NOTE | 2018-05-25 10:53 | Discharge Summary ---
Discharge Summary Discharge Summary _ DATE OF ADMISSION: 05/18/2018 DATE OF DISCHARGE: 05/22/2018 REASON FOR ADMISSION: 73 years old male with past medical history of hypertension, BPH, hyperlipidemia , renal cell carcinoma, status post partial nephrectomy , borderline diabetes , hepatitis C, anxiety , depression, presented with complaint of severe burning on urination. Patient reported pain radiating to his left groin. He reported subjective fevers , chills and generalized malaise. Vital signs showed no fever, and were stable . Urinalysis revealed positive leukocyte esterase , pyuria and few bacteria. Laboratory workup revealed leukocytosis with WBC 13.5. Stable electrolytes. BUN 11 creatinine 1.3. Lactic acid 0.6. CT of the abdomen and pelvis revealed evidence of prior left lower pole partial nephrectomy with surrounding dystrophic calcification, unchanged from previous study. No evidence of recurrent mass. No acute abnormalities. Colonic diverticulosis without evidence of diverticulitis. Prostatomegaly. Small fat-containing umbilical hernia. Posterior pulmonary dependent atelectatic changes and/or fibrotic changes , small pulmonary bullae. Patient admitted with diagnoses of acute pyelonephritis, COPD, diabetes, hypertensive heart disease, BPH, hepatitis C, anxiety ,renal cell carcinoma. CONSULTANTS: pulmonary Dr. Morse ID specialist Dr. Hua general surgery Dr. Tinajero psychiatrist [facility] COURSE: Patient admitted to medical surgical floor. Patient started on IV fluids and empiric antibiotics. Pyridium was given for symptomatic management . ID specialist closely followed. Urine culture revealed Proteus mirabilis, blood culture were negative. Leukocytosis resolved . Antibiotic changed to oral prior to discharge to complete the course as per ID recommendations. Surgery consult was requested. Patient recently had right axilla abscess and had incision and drainage performed by primary acre provider. Incision was healing well , but patient still had some tenderness. Surgery consult was requested . Surgeon seen and evaluated patient No drainage, no fevers . Patient received antibiotics after procedure. According to surgeon , abscess was healing well after procedure, which was adequate. No recurrence noted. No surgical intervention was necessary at this time. Integration Engineer closely followed. Supplemental oxygen and pulmonary toilet were on board as needed. Respiratory status remained stable. Blood pressure was managed with calcium channel thad and remained stable. DVT prophylaxis provided. Flomax was continued. No difficulty with voiding . Bowel regimen instituted. Pain management was addressed. Psychiatrist seen and evaluated patient, diagnosed patient with anxiety disorder . Psychiatrist recommended to continue current psychiatric medication regimen. Reality orientation supportive therapy provided . Patient clinically improved . Patient was stable for discharge home to complete oral antibiotics. FINAL DIAGNOSES: Acute pyelonephritis with Proteus mirabilis COPD Renal cell carcinoma, status post partial nephrectomy BPH Hypertensive heart disease Hepatitis C Hyperlipidemia Diabetes mellitus, borderline Right axilla abscess, status post recent I&D Anxiety disorder DISCHARGE MEDICATIONS: See Medication Reconciliation list. DISCHARGE INSTRUCTIONS: Patient was discharged home. Follow up with primary care provider in one week. I have been assigned to dictate discharge summary for this account. I was not involved in the patient's management. Renetta Tucker NP May 25, 2018 10:53
== END 2018-05-22 12:10 | disposition home or self-care (01) | DRG 690 ==
LOC: EMR 13:50 → 4E 15:57 → EDBEDREQ 16:46 → 3E 18:28
DX: N10 Acute pyelonephritis (principal); J44.1 Chronic obstructive pulmonary disease with (acute) exacerbation; L02.411 Cutaneous abscess of right axilla; B96.4 Proteus (mirabilis) (morganii) as the cause of diseases classified elsewhere; N12 Tubulo-interstitial nephritis, not specified as acute or chronic; I11.9 Hypertensive heart disease without heart failure; Z85.53 Personal history of malignant neoplasm of renal pelvis; Z90.5 Acquired absence of kidney; E78.00 Pure hypercholesterolemia, unspecified; N40.0 Benign prostatic hyperplasia without lower urinary tract symptoms; B19.20 Unspecified viral hepatitis C without hepatic coma; F41.9 Anxiety disorder, unspecified; F32.9 Major depressive disorder, single episode, unspecified; Z87.891 Personal history of nicotine dependence; K29.80 Duodenitis without bleeding; K29.70 Gastritis, unspecified, without bleeding; J44.9 Chronic obstructive pulmonary disease, unspecified; E11.9 Type 2 diabetes mellitus without complications; Z86.718 Personal history of other venous thrombosis and embolism
CPT/HCPCS: 36415; 74176; 80048; 80053; 80202; 81001; 81003; 83605; 85025; 87040; 87086; 87181

== ENCOUNTER 2018-08-04 09:24 | Outpatient (CLI) | payer MEDICARE, MEDICAID ==
[~2018-08-04 09:24] MED LIST changes: +PHENAZOPYRIDIN100 MG ORAL
--- NOTE | 2018-08-05 15:33 | Diagnostic Imaging Report ---
APPROVED REPORT CPT Code: 51595 Present Symptoms Comments: R/O DVT BILATERAL: Imaging reveals a patent deep venous system bilaterally. There is no evidence of thrombus within the femoral, popliteal or tibial segments. The greater saphenous veins are also within normal limits. Doppler indicates normal spontaneous flow within these segments.
== END 2018-08-04 11:24 | disposition home or self-care (01) ==
LOC: VAS 09:24
DX: I82.4Z3 Acute embolism and thrombosis of unspecified deep veins of distal lower extremity, bilateral (principal); Z79.01 Long term (current) use of anticoagulants
CPT/HCPCS: 93970

== ENCOUNTER 2018-10-28 15:10 | Emergency (ER) | payer MEDICARE, MEDICAID ==
[~2018-10-28] VITALS: Ht 175.3 cm; Wt 91.6 kg
--- NOTE | 2018-10-28 15:23 | NUR ---
ED Nurse Note: Patient came in from home/ a/o x4, ambulatory, c/o chest pain 8/10 on the right chest, radiating to headache/under arm.
[2018-10-28 15:30] VITALS: BP 126/79
[2018-10-28] MEDS ORDERED: Aspirin Baby 81mg ORAL ONE (15:30)
--- NOTE | 2018-10-28 15:44 | NUR ---
ED Nurse Note: RT CALLED FOR BREATHING TREATMENT.
[2018-10-28] MEDS ORDERED: Albuterol/Ipratropium 3ml neb HHN ONE (15:45)
[2018-10-28 16:35] LABS: ANION GAP 10 mmol/L (5-15); BLOOD UREA NITROGEN 13 mg/dL (7-18); CALCIUM 9.6 MG/DL (8.5-10.1); CARBON DIOXIDE 26 MMOL/L (21-32); CHLORIDE 105 MMOL/L (98-107); CREATININE 1.4 MG/DL (0.55-1.30); SODIUM 141 MMOL/L (136-145)
[2018-10-28 16:38] LABS: BASOPHILS % (AUTO) 0.9 % (0.0-2.0); HEMATOCRIT 46.8 % (42.0-52.0); HEMOGLOBIN 15.3 G/DL (14.2-18.0); MEAN CORPUSCULAR VOLUME 95 FL (80-99); NEUTROPHILS % (AUTO) 63.1 % (45.0-75.0); PLATELET COUNT 216 K/UL (150-450); RED BLOOD COUNT 4.93 M/UL (4.70-6.10); RED CELL DISTRIBUTION WIDTH 12.1 % (11.6-14.8); WHITE BLOOD COUNT 6.6 K/UL (4.8-10.8)
[2018-10-28 16:51] LABS: ALANINE AMINOTRANSFERASE 28 U/L (12-78); ALBUMIN 4.3 G/DL (3.4-5.0); ALBUMIN/GLOBULIN RATIO 1.2 (1.0-2.7); ALKALINE PHOSPHATASE 76 U/L (46-116); ASPARTATE AMINO TRANSFERASE 21 U/L (15-37); BILIRUBIN,TOTAL 0.4 MG/DL (0.2-1.0); CKMB 1.1 NG/ML (0.0-3.6); CREATINE KINASE 188 U/L (26-308)
--- NOTE | 2018-10-28 17:09 | Diagnostic Imaging Report ---
Indication: Chest pain Technique: One view of the chest Comparison: 04/24/2018 Findings: Lungs and pleural spaces are clear. Heart size is normal . No significant interim change Impression: No acute process
[2018-10-28] MEDS ORDERED: ALBUTEROL SULF8.5 GM INH (17:27)
[2018-10-28 17:33] VITALS: BP 123/81
--- NOTE | 2018-10-28 17:34 | NUR ---
ED Nurse Note: PT LAYING PEACEFULLY IN BED IN NAD. AOX4. PRESCRIPTIONS AND DISCHARGE PAPERWORK EXPLAINED TO PT. PT VERBALIZES UNDERSTANDING AND ALL QUESTIONS WERE ANSWERED. PRESCRIPTIONS AND DISCHARGE PAPERWORK GIVEN TO PT, IV AND ID WRISTBAND REMOVED. PT WALKED OUT OF ER WITH STEADY GAIT AND ALL BELONGINGS.
--- NOTE | 2018-10-29 13:41 | Emergency Room Report ---
History of Present Illness General Chief Complaint: Chest Pain Source: Patient Present Illness HPI Patient is a 73-year-old male brought in by walk-in after increased chest discomfort.Patient was noted to have prior history of similar type symptoms in the past. He reports having sharp pain to his chest. Patient had previous cardiac evaluations which included CT of his chest as well as echocardiography and stress testing. Pain had been present for several days. Patient denies any numbness or weakness. He had previous negative head CTs as well as brain MRI. Patient is noted to be taking multiple pain medications. He denies any new leg pain or swelling.Patient symptoms are unchanged by exertion or deep breaths.Patient is noted to have some worsening with movement. 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 Hx Dizziness: Yes - WHEN CHANGING FROM SITTING TO STANDING Hx Headaches: Yes - OCCASIONALLY, MORE AFTER FACIAL SWELLING Hx Weakness: Yes - generalized Review of Systems All Other Systems: negative except mentioned in HPI Physical Exam Vital Signs Date Time Temp Pulse Resp B/P (MAP) Pulse Ox O2 Delivery O2 Flow Rate FiO2 10/28/18 15:13 97.7 69 12 121/78 85 10/28/18 15:30 Room Air 10/28/18 16:20 21 Sp02 EP Interpretation: reviewed, normal General Appearance: normal inspection, well appearing, no apparent distress, alert, GCS 15, non-toxic Head: atraumatic ENT: normal ENT inspection, hearing grossly normal, normal voice Neck: normal inspection, full range of motion, supple, no bony tend Respiratory: normal inspection, lungs clear, normal breath sounds, no respiratory distress, no retraction, no wheezing Cardiovascular #1: regular rate, rhythm, no edema Gastrointestinal: normal inspection, normal bowel sounds, non tender, soft, no guarding, no hernia Genitourinary: no CVA tenderness Musculoskeletal: normal inspection, back normal, normal range of motion Neurologic: normal inspection, alert, oriented x3, 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 Differential diagnosis included but was not limited to acute coronary syndrome, pulmonary embolism, pneumonia, aortic dissection, shingles, pneumothorax, aortic dissection, esophageal rupture, pericarditis. Because of complexity of patient's case laboratory testing and imaging studies were ordered.Patient was given oral pain medications. Laboratory testing was unremarkable. EKG interpreted by me showed normal sinus rhythm without acute ST or T wave changes.Patient was given a breathing treatment. Chest x-ray 1 view interpreted by me showed normal cardiac size without evident infiltrate and mild hyperinflation. Patient was discharged home. He was advised to follow-up with Dr. Lara for recheck in 1 day. She was advised to return if he began having worsening pain persistent vomiting fever or other concerns Labs Test 10/28/18 15:35 White Blood Count 6.6 K/UL (4.8-10.8) Red Blood Count 4.93 M/UL (4.70-6.10) Hemoglobin 15.3 G/DL (14.2-18.0) Hematocrit 46.8 % (42.0-52.0) Mean Corpuscular Volume 95 FL (80-99) Mean Corpuscular Hemoglobin 31.0 PG (27.0-31.0) Mean Corpuscular Hemoglobin Concent 32.6 G/DL (32.0-36.0) Red Cell Distribution Width 12.1 % (11.6-14.8) Platelet Count 216 K/UL (150-450) Mean Platelet Volume 7.7 FL (6.5-10.1) Neutrophils (%) (Auto) 63.1 % (45.0-75.0) Lymphocytes (%) (Auto) 28.0 % (20.0-45.0) Monocytes (%) (Auto) 7.0 % (1.0-10.0) Eosinophils (%) (Auto) 1.0 % (0.0-3.0) Basophils (%) (Auto) 0.9 % (0.0-2.0) Sodium Level 141 MMOL/L (136-145) Potassium Level 4.0 MMOL/L (3.5-5.1) Chloride Level 105 MMOL/L (98-107) Carbon Dioxide Level 26 MMOL/L (21-32) Anion Gap 10 mmol/L (5-15) Blood Urea Nitrogen 13 mg/dL (7-18) Creatinine 1.4 MG/DL (0.55-1.30) Estimat Glomerular Filtration Rate mL/min (>60) Glucose Level 98 MG/DL (74-106) Calcium Level 9.6 MG/DL (8.5-10.1) Total Bilirubin 0.4 MG/DL (0.2-1.0) Aspartate Amino Transf (AST/SGOT) 21 U/L (15-37) Alanine Aminotransferase (ALT/SGPT) 28 U/L (12-78) Alkaline Phosphatase 76 U/L (46-116) Total Creatine Kinase 188 U/L (26-308) Creatine Kinase MB 1.1 NG/ML (0.0-3.6) Creatine Kinase MB Relative Index 0.5 Troponin I 0.000 ng/mL (0.000-0.056) Pro-B-Type Natriuretic Peptide 115 pg/mL (0-125) Total Protein 8.0 G/DL (6.4-8.2) Albumin 4.3 G/DL (3.4-5.0) Globulin 3.7 g/dL Albumin/Globulin Ratio 1.2 (1.0-2.7) Lipase 107 U/L (73-393) EKG Diagnostic Results Rate: normal Rhythm: NSR ST Segments: no acute changes Last Vital Signs Date Time Temp Pulse Resp B/P (MAP) Pulse Ox O2 Delivery O2 Flow Rate FiO2 10/28/18 17:33 98.3 62 16 123/81 99 Room Air 10/28/18 16:30 21 Status: improved Disposition: HOME, SELF-CARE Condition: Stable Scripts Albuterol Sulfate* (ALBUTEROL SULFATE MDI*) 8.5 Gm Hfa.aer.ad 2 PUFF INH Q4H, #1 INH 0 Refills Prov: Bry Lund MD 10/28/18 Referrals: Jaylen Lara MD (PCP) Patient Instructions: Nonspecific Chest Pain Bry Lund MD Oct 29, 2018 13:41
== END 2018-10-28 17:34 | disposition home or self-care (01) ==
LOC: EMR 17:24
DX: R07.89 Other chest pain (principal); J44.9 Chronic obstructive pulmonary disease, unspecified
CPT/HCPCS: 36415; 71045; 80053; 82550; 82553; 83690; 83880; 84484; 85025; 93005; 94640; 99284; J7620

== ENCOUNTER 2018-11-02 14:53 | Inpatient (IN) | payer MEDICARE, MEDICAID ==
[~2018-11-02] VITALS: Ht 172.7 cm; Wt 89.8 kg
[2018-11-02 15:05] VITALS: BP 131/77
--- NOTE | 2018-11-02 15:05 | NUR ---
ED Nurse Note: Pt present at ER from his PCP's office c/o chest pain 10/10 stabbing and sharp and radiating to Lt shoulder and arm. Pt AAO x4 and in calm manner. skin clean and intact.
--- NOTE | 2018-11-02 15:24 | Consultation ---
History of Present Illness General Date patient seen: Nov 02, 2018 Chief Complaint: Chest Pain Present Illness HPI 73-year-old male with hx of DM, HTN, COPD presents ED for evaluation for chest pain 1 day. The pain is left-sided, sharp, 8 out of 10, worse with positional change. No other aggravating relieving factors. Denies any other associated symptoms. Pts primary physician was suspecting PE and send him to ER to get CTA of chest Allergies: Coded Allergies: No Known Allergies (Unverified , 10/27/12) Medication History Scheduled Albuterol Sulfate* (Albuterol Sulfate Mdi*), 2 PUFF INH Q4H Amlodipine Besylate* (Amlodipine Besylate*), 5 MG ORAL DAILY, (Reported) Cephalexin* (Keflex*), 500 MG ORAL EVERY 6 HOURS Cholecalciferol (Vitamin D3)* (Vitamin D*), 2,000 UNITS ORAL DAILY, (Reported) Colchicine (Colcrys), 0.6 MG ORAL DAILY Ibuprofen* (Motrin*), 800 MG ORAL Q6H Pantoprazole* (Protonix*), 40 MG ORAL DAILY Phenazopyridine Hcl* (Pyridium*), 100 MG ORAL THREE TIMES A DAY Rivaroxaban (Xarelto*), Unknown Dose ORAL DAILY, (Reported) Simvastatin (Zocor), 40 MG PO QHS, (Reported) Tamsulosin HCl (Flomax), 0.4 MG PO QHS, (Reported) Scheduled PRN Oxycodone Hcl* (Roxicodone*), 30 MG ORAL Q6H PRN for For Pain, (Reported) Tizanidine Hcl* (Zanaflex*), Unknown Dose ORAL THREE TIMES A DAY PRN for For Pain, (Reported) Patient History Healthcare decision maker Resuscitation status Advanced Directive on File Past Medical/Surgical History Past Medical/Surgical History: (1) COPD (chronic obstructive pulmonary disease) (2) Renal cell carcinoma (3) Diabetes (4) Hepatitis C (5) HTN (hypertension) Review of Systems All Other Systems: negative except mentioned in HPI Physical Exam General Appearance: WD/WN, no apparent distress Lines, tubes and drains: central line HEENT: normocephalic, atraumatic Neck: non-tender, normal alignment Respiratory/Chest: chest wall non-tender, lungs clear Breasts: no masses Cardiovascular/Chest: normal peripheral pulses, no JVD Abdomen: normal bowel sounds Genitourinary/Rectal: normal genital exam Extremities: normal range of motion Last 24 Hour Vital Signs Date Time Temp Pulse Resp B/P (MAP) Pulse Ox O2 Delivery O2 Flow Rate FiO2 11/02/18 14:56 97.7 70 20 125/78 98 Room Air Height (Feet): 5 Height (Inches): 8.00 Weight (Pounds): 202 Medications Current Medications Medications (Trade) Dose Ordered Sig/Felipe Route PRN Reason Start Time Stop Time Status Last Admin Dose Admin Iopamidol (Isovue-370 150ml) 150 ml NOW PRN INJ Radiology Procedure 11/02/18 15:30 11/04/18 15:20 Morphine Sulfate (Morphine Sulfate) 4 mg ONCE ONCE IVP 11/02/18 15:30 11/02/18 15:31 Assessment/Plan Problem List: (1) Costochondritis ICD Codes: M94.0 - Chondrocostal junction syndrome [Tietze] SNOMED: 32862153 (2) Pleuritic chest pain ICD Codes: R07.81 - Pleurodynia SNOMED: 8131384 (3) COPD (chronic obstructive pulmonary disease) ICD Codes: J44.9 - Chronic obstructive pulmonary disease, unspecified SNOMED: 47557971 (4) HTN (hypertension) ICD Codes: I10 - Essential (primary) hypertension SNOMED: 64737267 (5) Hepatitis C ICD Codes: B19.20 - Unspecified viral hepatitis C without hepatic coma SNOMED: 15984357 Assessment/Plan CT angio symptomatic treatment analgesics respiratory treatment monitor BP Susy Morse MD Nov 02, 2018 15:24
[2018-11-02] MEDS ORDERED: dilTIAZem HCl 25mg/5ml Inj IV PRN (15:30)
[2018-11-02] MEDS ORDERED: Morphine Sulfate 2mg/ml Inj IVP PRN (15:30)
[2018-11-02] MEDS ORDERED: Ketorolac 30mg Inj IV PRN (15:30)
[2018-11-02] MEDS ORDERED: Albuterol/Ipratropium 3ml neb HHN PRN (15:30)
[2018-11-02] MEDS ORDERED: Miralax 17gm pkt ORAL PRN (15:30)
[2018-11-02] MEDS ORDERED: Isovue-370 150ml vial INJ PRN (15:30)
[2018-11-02] MEDS ORDERED: oxyCODONE 15mg IR tab ORAL PRN (15:30)
[2018-11-02] MEDS ORDERED: Morphine Sulfate 4mg/ml Inj (IV/IM USE ONLY) IVP ONE ×2 (15:30→18:00)
[2018-11-02] MEDS ORDERED: Nitroglycerin Subl 0.4mg tab SL PRN (15:30)
[2018-11-02 16:05] VITALS: BP 134/71
[2018-11-02 16:18] LABS: BASOPHILS % (AUTO) 1.3 % (0.0-2.0); EOSINOPHILS % (AUTO) 1.1 % (0.0-3.0); HEMATOCRIT 45.6 % (42.0-52.0); HEMOGLOBIN 15.1 G/DL (14.2-18.0); MEAN CORPUSCULAR VOLUME 93 FL (80-99); MONOCYTES % (AUTO) 7.5 % (1.0-10.0); NEUTROPHILS % (AUTO) 59.2 % (45.0-75.0); PLATELET COUNT 195 K/UL (150-450); RED CELL DISTRIBUTION WIDTH 11.7 % (11.6-14.8); WHITE BLOOD COUNT 4.9 K/UL (4.8-10.8)
[2018-11-02 16:23] LABS: ANION GAP 9 mmol/L (5-15); BLOOD UREA NITROGEN 12 mg/dL (7-18); CALCIUM 9.6 MG/DL (8.5-10.1); CARBON DIOXIDE 28 MMOL/L (21-32); CHLORIDE 105 MMOL/L (98-107); CREATININE 1.2 MG/DL (0.55-1.30); SODIUM 142 MMOL/L (136-145)
--- NOTE | 2018-11-02 16:34 | Diagnostic Imaging Report ---
Indication: Chest pain Technique: One view of the chest Comparison: 10/28/2018 Findings: Lungs and pleural spaces are clear. Heart size is normal. No significant change Impression: No acute process
[2018-11-02 16:36] LABS: ALANINE AMINOTRANSFERASE 26 U/L (12-78); ALBUMIN 4.3 G/DL (3.4-5.0); ALBUMIN/GLOBULIN RATIO 1.3 (1.0-2.7); ALKALINE PHOSPHATASE 68 U/L (46-116); ASPARTATE AMINO TRANSFERASE 20 U/L (15-37); BILIRUBIN,TOTAL 0.5 MG/DL (0.2-1.0); CKMB 0.9 NG/ML (0.0-3.6); CREATINE KINASE 223 U/L (26-308)
[2018-11-02 17:05] VITALS: BP 136/86
--- NOTE | 2018-11-02 17:13 | NUR ---
ED Nurse Note: Pt is having dinner in bed in stable condition.
--- NOTE | 2018-11-02 17:53 | NUR ---
ED Nurse Note: pt reported worseing chest pain 10/10. MD made aware.
[2018-11-02 18:05] VITALS: BP 138/77
--- NOTE | 2018-11-02 18:39 | Emergency Room Report ---
History of Present Illness General Chief Complaint: Chest Pain Source: Patient Present Illness HPI 73-year-old male presents ED for evaluation. Coming from his PMD office today. States he's been having chest pain 1 day. Left-sided, sharp, 8 out of 10, worse with positional change. denies shortness of breath. States he was seen here a few days ago for similar pain and was subsequently discharged. Denies drug use. Denies smoking. No other aggravating relieving factors. Denies any other associated symptoms Allergies: Coded Allergies: No Known Allergies (Unverified , 10/27/12) Patient History Past Medical History: DM, HTN, COPD Past Surgical History: none Pertinent Family History: none Social History: Denies: smoking, alcohol use, drug use Immunizations: UTD Reviewed Nursing Documentation: PMH: Agreed; PSxH: Agreed Nursing Documentation-PMH Past Medical History: No History, Except For Hx Cardiac Problems: No Hx Hypertension: Yes Hx Pacemaker: No Hx Asthma: No Hx COPD: Yes Hx Diabetes: Yes - BORDERLINE Hx Cancer: No - Benign kidney Cancer Hx Gastrointestinal Problems: Yes Hx Dialysis: No - Hep C, knee surgery 2011 Hx Neurological Problems: Yes - dizziness, headache Hx Cerebrovascular Accident: No Hx Seizures: No 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 Hx Dizziness: Yes - WHEN CHANGING FROM SITTING TO STANDING Hx Headaches: Yes - OCCASIONALLY, MORE AFTER FACIAL SWELLING Hx Weakness: Yes - generalized Review of Systems All Other Systems: negative except mentioned in HPI Physical Exam Vital Signs Date Time Temp Pulse Resp B/P (MAP) Pulse Ox O2 Delivery O2 Flow Rate FiO2 11/02/18 14:56 97.7 70 20 125/78 98 Room Air 11/02/18 15:05 95 Sp02 EP Interpretation: reviewed, normal General Appearance: alert, GCS 15, non-toxic, mild distress Head: normocephalic, atraumatic Eyes: bilateral eye normal inspection, bilateral eye PERRL ENT: hearing grossly normal, normal pharynx, no angioedema, normal voice Neck: full range of motion, supple/symm/no masses Respiratory: lungs clear, normal breath sounds, speaking full sentences, other - reproducible L sided chest pain Cardiovascular #1: regular rate, rhythm, no edema Cardiovascular #2: 2+ carotid (R), 2+ carotid (L), 2+ radial (R), 2+ radial (L) , 2+ dorsalis pedis (R), 2+ dorsalis pedis (L) Gastrointestinal: normal bowel sounds, non tender, soft, non-distended, no guarding, no rebound Rectal: deferred Genitourinary: normal inspection, no CVA tenderness Musculoskeletal: back normal, gait/station normal, normal range of motion, non- tender Neurologic: alert, oriented x3, responsive, motor strength/tone normal, sensory intact, speech normal Psychiatric: judgement/insight normal, memory normal, mood/affect normal, no suicidal/homicidal ideation Reflexes: 3+ bicep (R), 3+ bicep (L), 3+ tricep (R), 3+ tricep (L), 3+ knee (R) , 3+ knee (L) Skin: normal color, no rash, warm/dry, well hydrated Lymphatic: no adenopathy Medical Decision Making Diagnostic Impression: Primary Impression: Pleuritic chest pain ER Course Hospital Course 73-year-old male presents ED complaining of left-sided chest pain Differential diagnoses include: MD/unstable angina, contusion, muscle strain, PTX, PE Clinical course Patient placed on stretcher. on telemetry monitor. After initial history and physical I ordered labs, EKG, chest x-ray, morphine, CTA Chest labs reviewed- no leukocytosis, hb/hct stable, electrolytes ok, trop negative EKG - NSR, no acute ischemic changes interpreted by me Chest x-ray- no acute process CTA chest - no PE, some blebs noted Pain likely pleuritic. However given risk factors patient will be admitted. given additional morphine, baclofen here Case discussed with Dr. Lara and he agreed to accept the patient to his service for further care and support I. I feel this is a highly complex case requiring extensive working including EKG/Rhythm strip, Xray/CT/US, Blood/urine lab work, repeat exams while in ED, and administration of strong opiates/narcotics for pain control, admission to hospital or close patient follow up. Diagnosis - pleuritic chest pain admitted to floor in serious condition Labs Test 11/02/18 15:50 White Blood Count 4.9 K/UL (4.8-10.8) Red Blood Count 4.90 M/UL (4.70-6.10) Hemoglobin 15.1 G/DL (14.2-18.0) Hematocrit 45.6 % (42.0-52.0) Mean Corpuscular Volume 93 FL (80-99) Mean Corpuscular Hemoglobin 30.8 PG (27.0-31.0) Mean Corpuscular Hemoglobin Concent 33.0 G/DL (32.0-36.0) Red Cell Distribution Width 11.7 % (11.6-14.8) Platelet Count 195 K/UL (150-450) Mean Platelet Volume 8.0 FL (6.5-10.1) Neutrophils (%) (Auto) 59.2 % (45.0-75.0) Lymphocytes (%) (Auto) 31.0 % (20.0-45.0) Monocytes (%) (Auto) 7.5 % (1.0-10.0) Eosinophils (%) (Auto) 1.1 % (0.0-3.0) Basophils (%) (Auto) 1.3 % (0.0-2.0) Sodium Level 142 MMOL/L (136-145) Potassium Level 4.0 MMOL/L (3.5-5.1) Chloride Level 105 MMOL/L (98-107) Carbon Dioxide Level 28 MMOL/L (21-32) Anion Gap 9 mmol/L (5-15) Blood Urea Nitrogen 12 mg/dL (7-18) Creatinine 1.2 MG/DL (0.55-1.30) Estimat Glomerular Filtration Rate mL/min (>60) Glucose Level 99 MG/DL (74-106) Calcium Level 9.6 MG/DL (8.5-10.1) Total Bilirubin 0.5 MG/DL (0.2-1.0) Aspartate Amino Transf (AST/SGOT) 20 U/L (15-37) Alanine Aminotransferase (ALT/SGPT) 26 U/L (12-78) Alkaline Phosphatase 68 U/L (46-116) Total Creatine Kinase 223 U/L (26-308) Creatine Kinase MB 0.9 NG/ML (0.0-3.6) Creatine Kinase MB Relative Index 0.4 Troponin I 0.001 ng/mL (0.000-0.056) Total Protein 7.7 G/DL (6.4-8.2) Albumin 4.3 G/DL (3.4-5.0) Globulin 3.4 g/dL Albumin/Globulin Ratio 1.3 (1.0-2.7) EKG Diagnostic Results Rate: normal Rhythm: NSR ST Segments: no acute changes ASA given to the pt in ED: No Rhythm Strip Diag. Results EP Interpretation: yes Rhythm: NSR, no PVC's, no ectopy Chest X-Ray Diagnostic Results Chest X-Ray Diagnostic Results : Chest X-Ray Ordered: Yes # of Views/Limited/Complete: 1 View Indication: Chest Pain EP Interpretation: Yes Interpretation: no consolidation, no effusion, no pneumothorax, no acute cardiopulmonary disease Impression: No acute disease Electronically Signed by: Electronically signed by Sergio Prince MD CT/MRI/US Diagnostic Results CT/MRI/US Diagnostic Results : Imaging Test Ordered: CTA Chest Impression no PE. blebs noted. pulmonary fibrosis Last Vital Signs Date Time Temp Pulse Resp B/P (MAP) Pulse Ox O2 Delivery O2 Flow Rate FiO2 11/02/18 17:05 98.1 87 20 136/86 96 Room Air 11/02/18 15:05 95 Status: improved Disposition: ADMITTED INPATIENT Condition: Serious Referrals: Jaylen Lara MD (PCP) Sergio Prince MD Nov 02, 2018 18:39
--- NOTE | 2018-11-02 18:54 | NUR ---
ED Nurse Note: attempted to give report and JOHN PAUL Rachel is not available.
[2018-11-02] MEDS ORDERED: Enalaprilat 2.5mg/2ml Inj IV PRN (19:00)
[2018-11-02 19:08] VITALS: BP 138/77
--- NOTE | 2018-11-02 19:08 | NUR ---
ED Nurse Note: JOHN PAUL Tran received the report.
--- NOTE | 2018-11-02 19:09 | NUR ---
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
--- NOTE | 2018-11-02 19:30 | NUR ---
NURSE NOTES: Received pt from Shannon via harjit. Pt is AOX4, c/o chest discomfort and SOB. No distress noted. VSS. Will admit pt to floor. Safety measures maintained. Bed in low position and locked, side rails up x 2, call light within reach. Will continue to monitor.
[2018-11-02 20:00] VITALS: BP 128/79
[2018-11-02] MEDS: Heparin 5000 units/ml inj SUBQ SCH (20:56)
[2018-11-02] MEDS: Morphine Sulfate 4mg/ml Inj (IV/IM USE ONLY) IVP PRN (20:59)
[2018-11-02] MEDS: Tamsulosin 0.4mg cap ORAL SCH (21:01)
[2018-11-03] VITALS: BP 134/76
[2018-11-03 04:30] VITALS: BP 132/78
[2018-11-03] MEDS: Morphine Sulfate 4mg/ml Inj (IV/IM USE ONLY) IVP PRN ×3 (05:41→17:58)
[2018-11-03 06:37] LABS: BASOPHILS % (AUTO) 0.6 % (0.0-2.0); EOSINOPHILS % (AUTO) 2.2 % (0.0-3.0); HEMATOCRIT 44.2 % (42.0-52.0); HEMOGLOBIN 14.8 G/DL (14.2-18.0); LYMPHOCYTES % (AUTO) 35.2 % (20.0-45.0); MEAN CORPUSCULAR VOLUME 94 FL (80-99); MONOCYTES % (AUTO) 9.9 % (1.0-10.0); PLATELET COUNT 188 K/UL (150-450); RED BLOOD COUNT 4.71 M/UL (4.70-6.10); RED CELL DISTRIBUTION WIDTH 11.9 % (11.6-14.8); WHITE BLOOD COUNT 5.3 K/UL (4.8-10.8)
[2018-11-03 07:16] LABS: CHOLESTEROL 130 MG/DL (< 200); HDL CHOLESTEROL 45 MG/DL (40-60); TRIGLYCERIDES 70 MG/DL (30-150)
--- NOTE | 2018-11-03 07:29 | NUR ---
HAND-OFF: Report given to JOHN PAUL Melvin. Pt in stable condition.
--- NOTE | 2018-11-03 07:55 | NUR ---
NURSE NOTES: Received report from Marc COKER. On rounds, patient is awake alert and oriented x4, sitting up in bed eating breakfast. No s/s acute distress noted. Patient is reporting no chest pain or shortness of breath at this time. IV asymptomatic. Side rails upx2, bed low and locked, call light in reach. Will continue to monitor.
[2018-11-03 08:00] VITALS: BP 129/73
--- NOTE | 2018-11-03 08:38 | Diagnostic Imaging Report ---
ndication: Chest pain Technique: IV administration nonionic contrast. Spiral acquisitions obtained from the lung bases to the lung apices. Multiplanar and 3-D reconstructions were generated. Total dose length product 906.95 mGycm. CTDIvol(s) 26.39 mGy. Dose reduction achieved using automated exposure control Comparison: 12/21/2017 Findings: There is good quality pulmonary arterial opacification. No intraluminal filling defects or other findings to suggest acute pulmonary embolus demonstrated. Normal caliber pulmonary arteries. No evidence of right ventricular dilatation. There is suggestion of left ventricular muscular hypertrophy. No evidence of thoracic aortic aneurysm or dissection. Common origin right brachiocephalic and left common carotid arteries, otherwise normal branching anatomy of the great neck vessels. Patent nonstenotic proximal abdominal visceral arteries. The lungs demonstrate generalized mild interstitial septal thickening and small upper lobe peripheral bullous changes. Posterior dependent atelectatic changes are seen at both lung bases. No infiltrates, effusions, masses, or nodules. No pericardial effusion. Normal esophagus. No mediastinal or hilar mass or adenopathy. No axillary or chest wall mass or adenopathy. Included portion of the thyroid is unremarkable. Included upper abdominal anatomy is unremarkable Impression: Negative for acute pulmonary embolus or other acute thoracic pathology COPD changes and mild interstitial fibrotic changes This agrees with the preliminary interpretation provided overnight by Dr. Rodriguez The CT scanner at [facility] is accredited by the [employer] and the scans are performed using protocols designed to limit radiation exposure to as low as reasonably achievable to attain images of sufficient resolution adequate for diagnostic evaluation.
[2018-11-03] MEDS: Heparin 5000 units/ml inj SUBQ SCH ×2 (09:04→20:16)
[2018-11-03] MEDS: Aspirin Baby 81mg ORAL SCH (09:07)
--- NOTE | 2018-11-03 09:25 | NUR ---
NURSE NOTES: Patient reporting shortness of breath following 2D echo. Patient reports shortness of breath is from positioning on back during test. Sat patient upright and placed on 2L NC. Will continue to monitor.
[2018-11-03 12:00] VITALS: BP 118/74
--- NOTE | 2018-11-03 13:10 | Pulmonology Progress Note ---
Assessment/Plan Problems: (1) Costochondritis (2) Pleuritic chest pain (3) COPD (chronic obstructive pulmonary disease) (4) HTN (hypertension) (5) Hepatitis C Assessment/Plan symptomatic treatment check electrolytes pain management CT angio showed only COPD, and fibrosis monitor BP Subjective ROS Limited/Unobtainable: No Constitutional: Reports: no symptoms HEENT: Repors: no symptoms Respiratory: Reports: no symptoms Allergies: Coded Allergies: No Known Allergies (Unverified , 10/27/12) Objective Last 24 Hour Vital Signs Date Time Temp Pulse Resp B/P (MAP) Pulse Ox O2 Delivery O2 Flow Rate FiO2 11/03/18 12:00 97.9 67 18 118/74 (89) 98 11/03/18 09:05 68 129/73 11/03/18 09:00 Room Air 11/03/18 08:00 98.0 68 18 129/73 (91) 96 11/03/18 04:30 98.2 64 18 132/78 (96) 95 11/03/18 00:00 98.2 70 19 134/76 (95) 97 11/02/18 22:30 59 20 99 Room Air 21 11/02/18 22:22 57 20 95 Room Air 21 11/02/18 22:20 57 20 Room Air 21 11/02/18 20:00 98.0 64 18 128/79 (95) 97 11/02/18 19:41 Room Air 11/02/18 19:08 98.1 71 20 138/77 99 Room Air 95 11/02/18 19:08 97.4 81 17 135/85 99 Room Air 11/02/18 18:05 98.1 71 20 138/77 99 Room Air 11/02/18 17:05 98.1 87 20 136/86 96 Room Air 11/02/18 16:05 98.2 78 18 134/71 95 Room Air 11/02/18 15:05 97.7 82 20 131/77 98 Room Air 11/02/18 15:05 69 20 Room Air 95 11/02/18 14:56 97.7 70 20 125/78 98 Room Air Intake and Output 11/02/18 11/03/18 19:00 07:00 Intake Total 0 ml 200 ml Balance 0 ml 200 ml Intake Oral 0 ml 200 ml # Voids 3 General Appearance: WD/WN HEENT: normocephalic, atraumatic Respiratory/Chest: chest wall non-tender, lungs clear Cardiovascular: normal peripheral pulses, normal rate Abdomen: normal bowel sounds, soft, non tender Genitourinary: normal external genitalia Extremities: no cyanosis 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2, Estimat Glomerular Filtration Rate , Glucose Level 99, Calcium Level 9.6, Total Bilirubin 0.5, Aspartate Amino Transf (AST/SGOT) 20, Alanine Aminotransferase ( ALT/SGPT) 26, Alkaline Phosphatase 68, Total Creatine Kinase 223, Creatine Kinase MB 0.9, Creatine Kinase MB Relative Index 0.4, Troponin I 0.001, Total Protein 7.7, Albumin 4.3, Globulin 3.4, Albumin/Globulin Ratio 1.3 11/03/18 04:55: White Blood Count 5.3, Red Blood Count 4.71, Hemoglobin 14.8, Hematocrit 44.2, Mean Corpuscular Volume 94, Mean Corpuscular Hemoglobin 31.4H, Mean Corpuscular Hemoglobin Concent 33.5, Red Cell Distribution Width 11.9, Platelet Count 188, Mean Platelet Volume 7.4, Neutrophils (%) (Auto) 52.0, Lymphocytes (%) (Auto) 35.2, Monocytes (%) (Auto) 9.9, Eosinophils (%) (Auto) 2.2, Basophils (%) (Auto ) 0.6, Troponin I 0.007, Prothrombin Time 10.9, Prothromb Time International Ratio 1.0, Activated Partial Thromboplast Time 31, C-Reactive Protein, Quantitative < 0.4, Triglycerides Level 70, Cholesterol Level 130, LDL Cholesterol 74, HDL Cholesterol 45, Cholesterol/HDL Ratio 2.9L, Thyroid Stimulating Hormone (TSH) 1.621 Current Medications Medications (Trade) Dose Ordered Sig/Felipe Route PRN Reason Start Time Stop Time Status Last Admin Dose Admin Acetaminophen (Tylenol) 650 mg Q4H PRN ORAL FEVER 11/02/18 15:30 12/02/18 15:29 Albuterol/ Ipratropium (Albuterol/ Ipratropium) 3 ml Q4H PRN HHN Shortness of Breath 11/02/18 15:30 11/07/18 15:29 11/02/18 22:23 Amlodipine Besylate (Norvasc) 5 mg DAILY ORAL 11/03/18 09:00 12/03/18 08:59 11/03/18 09:05 Aspirin (ASA) 162 mg DAILY ORAL 11/03/18 09:00 12/03/18 08:59 11/03/18 09:07 Colchicine (Colchicine) 0.6 mg DAILY ORAL 11/03/18 09:00 12/03/18 08:59 11/03/18 09:05 Enalaprilat (Vasotec) 2.5 mg Q6H PRN IV sbp more than 160 11/02/18 19:00 12/02/18 18:59 Heparin Sodium (Porcine) (Heparin 5000 units/ml) 5,000 units EVERY 12 HOURS SUBQ 11/02/18 21:00 12/02/18 20:59 11/03/18 09:04 Iopamidol (Isovue-370 150ml) 150 ml NOW PRN INJ Radiology Procedure 11/02/18 15:30 11/04/18 15:20 Ketorolac Tromethamine (Toradol 30mg) 30 mg Q6H PRN IV moderate pain ( 4-6) 11/02/18 15:30 11/07/18 15:29 Morphine Sulfate (Morphine Sulfate) 2 mg Q4H PRN IVP severe Pain (Pain Scale 7-10) 11/02/18 19:00 11/09/18 15:29 11/03/18 05:41 Nitroglycerin (Ntg) 0.4 mg Q5M PRN SL Prn Chest Pain 11/02/18 15:30 12/02/18 15:29 Ondansetron HCl (Zofran) 4 mg Q6H PRN IVP Nausea & Vomiting 11/02/18 15:30 12/02/18 15:29 Oxycodone HCl (Roxicodone) 30 mg Q6H PRN ORAL Mild Pain (Pain Scale 1-3) 11/02/18 15:30 11/09/18 15:29 Polyethylene Glycol (Miralax) 17 gm DAILYPRN PRN ORAL Constipation 11/02/18 15:30 12/02/18 15:29 11/02/18 22:00 Tamsulosin HCl (Flomax) 0.4 mg QHS ORAL 11/02/18 21:00 12/02/18 20:59 11/02/18 21:01 Temazepam (Restoril) 15 mg HSPRN PRN ORAL Insomnia 11/02/18 15:30 11/09/18 15:29 Susy Morse MD Nov 03, 2018 13:10
--- NOTE | 2018-11-03 13:40 | NUR ---
NURSE NOTES: Patient reported another episode of chest pain. Reported the pain was worse when taking deep breaths. Morphine 2mg was given. Patient reports pain is subsiding following morphine administration, remains on 2L NC. Will continue to monitor.
[2018-11-03 16:00] VITALS: BP 117/77
--- NOTE | 2018-11-03 17:09 | NUR ---
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 97.7 HR 70 RR 20 B/P 125/[address] CHEST- NEGATIVE FOR ACUTE THORACIC PATHOLOGY. NO PE CXR= NO ACUTE PROCESS IS: MORPHINE IV ADMITTED TO MED/SURG MED/SURG STATUS
--- NOTE | 2018-11-03 17:21 | Cardiology Report ---
APPROVED REPORT EXAM: Two-dimensional and M-mode echocardiogram with Doppler and color Doppler. INDICATION LV FUNCTION M-Mode DIMENSIONS Left Atrium (MM)2.9 (1.6-4.0cm) Aortic Root4.0 (2.0-3.7cm) Aortic Cusp Exc.1.6 (1.5-2.0cm) Technically difficult study with poor endocardial definition Normal left ventricular chamber size, systolic function and wall motion . M-mode measurements of left ventricle not obtainable due to cardiac position (angle) Left ventricular ejection fraction estimated to be 55-60% to extent visualized No evidence left ventricular hypertrophy . No evidence of pericardial fat or effusion. All other cardiac chamber sizes are within normal limits. Focal aortic valve sclerosis with adequate cusp excursion Moderately thickened mitral valve leaflets with normal excursion. Moderately mitral annulus and aortic root calcification. Pulmonic valve not well visualized. IVC at normal size with physiologic collapse . A color flow and spectral Doppler study was performed and revealed: No aortic regurgitation. Mitral diastolic velocities suggest reduced left ventricular relaxation c/w mild LV diastolic dysfunction (Grade I ) Trace mitral regurgitation. Mild tricuspid regurgitation. Tricuspid systolic velocities suggests peak right ventricular systolic pressure of 11 mmHg .
--- NOTE | 2018-11-03 17:45 | History & Physical ---
History and Physical History & Physicial Dictated for Int Med-Dr Lara no. [id number] Leonardo Palencia MD Nov 03, 2018 17:45
--- NOTE | 2018-11-03 18:00 | Cardiology Progress Note ---
Assessment/Plan Assessment/Plan chest wall syndrome ctpa neg for thoracic pathology or pe or dissection pain reproducible on palaptioan and with certain position an dcough has sob and latham not cardaic will check d dimer and bnp again [id number] Objective Last 24 Hour Vital Signs Date Time Temp Pulse Resp B/P (MAP) Pulse Ox O2 Delivery O2 Flow Rate FiO2 11/03/18 16:00 98.1 65 18 117/77 (90) 98 11/03/18 13:32 97.9 11/03/18 12:00 97.9 67 18 118/74 (89) 98 11/03/18 09:05 68 129/73 11/03/18 09:00 Room Air 11/03/18 08:00 98.0 68 18 129/73 (91) 96 11/03/18 04:30 98.2 64 18 132/78 (96) 95 11/03/18 00:00 98.2 70 19 134/76 (95) 97 11/02/18 22:30 59 20 99 Room Air 21 11/02/18 22:22 57 20 95 Room Air 21 11/02/18 22:20 57 20 Room Air 21 11/02/18 20:00 98.0 64 18 128/79 (95) 97 11/02/18 19:41 Room Air 11/02/18 19:08 98.1 71 20 138/77 99 Room Air 95 11/02/18 19:08 97.4 81 17 135/85 99 Room Air 11/02/18 18:05 98.1 71 20 138/77 99 Room Air Intake and Output 11/02/18 11/03/18 18:59 06:59 Intake Total 0 ml 200 ml Balance 0 ml 200 ml Intake Oral 0 ml 200 ml # Voids 3 Laboratory Tests Test 11/03/18 04:55 White Blood Count 5.3 K/UL (4.8-10.8) Red Blood Count 4.71 M/UL (4.70-6.10) Hemoglobin 14.8 G/DL (14.2-18.0) Hematocrit 44.2 % (42.0-52.0) Mean Corpuscular Volume 94 FL (80-99) Mean Corpuscular Hemoglobin 31.4 PG (27.0-31.0) H Mean Corpuscular Hemoglobin Concent 33.5 G/DL (32.0-36.0) Red Cell Distribution Width 11.9 % (11.6-14.8) Platelet Count 188 K/UL (150-450) Mean Platelet Volume 7.4 FL (6.5-10.1) Neutrophils (%) (Auto) 52.0 % (45.0-75.0) Lymphocytes (%) (Auto) 35.2 % (20.0-45.0) Monocytes (%) (Auto) 9.9 % (1.0-10.0) Eosinophils (%) (Auto) 2.2 % (0.0-3.0) Basophils (%) (Auto) 0.6 % (0.0-2.0) Prothrombin Time 10.9 SEC (9.30-11.50) Prothromb Time International Ratio 1.0 (0.9-1.1) Activated Partial Thromboplast Time 31 SEC (23-33) Troponin I 0.007 ng/mL (0.000-0.056) C-Reactive Protein, Quantitative < 0.4 mg/dL (0.00-0.90) Triglycerides Level 70 MG/DL (30-150) Cholesterol Level 130 MG/DL (< 200) LDL Cholesterol 74 mg/dL (<100) HDL Cholesterol 45 MG/DL (40-60) Cholesterol/HDL Ratio 2.9 (3.3-4.4) L Thyroid Stimulating Hormone (TSH) 1.621 uiU/mL (0.358-3.740) Dariusz Yin MD Nov 03, 2018 18:00
--- NOTE | 2018-11-03 18:29 | NUR ---
NURSE NOTES: Patient reported another episode of chest pain after speaking with MD at the bedside. Morphine 2mg administered. Patient is now reporting that pain is decreasing, appears calmer, no SOB noted. Patient remains on 2L NC. Will continue to monitor.
[2018-11-03] MEDS ORDERED: Meloxicam 15 MG TAB ORAL SCH (18:30)
--- NOTE | 2018-11-03 19:23 | NUR ---
HAND-OFF: Report given to Sara COKER. Patient stable.
--- NOTE | 2018-11-03 19:24 | NUR ---
NURSE NOTES: Received report & pt from JOHN PAUL Melvin. Pt lying in bed, a&ox4, on O2 via NC @ 2LPM. No s/s of acute distress & no c/o pain at this time. IV site intact & S/L'd. Bed in lowest position, call light within reach. Will continue to monitor.
[2018-11-03 20:00] VITALS: BP 122/71
[2018-11-03] MEDS: Tamsulosin 0.4mg cap ORAL SCH (20:15)
--- NOTE | 2018-11-03 20:30 | History and Physical Report ---
DATE OF ADMISSION: 11/02/2018 CHIEF COMPLAINT: The patient is a 73-year-old male, who presents with chief complaint of chest pain. HISTORY OF PRESENT ILLNESS: The patient was seen by Dr. Jaylen Lara yesterday, November 02, 2018. The patient was complaining of left-sided chest pain. The patient describes the pain as being a muscle spasm. It radiates to his neck and to his left axilla. The patient states he also gets short of breath. The patient states that chest pain and shortness of breath leads to extreme anxiety. The patient states he has been having panic attacks as well. The patient presented to [facility]. The patient is admitted with left-sided chest pain to rule out acute coronary syndrome. REVIEW OF SYSTEMS: CONSTITUTIONAL: The patient denies weight loss or weight gain. The patient denies fevers or chills. HEENT: The patient denies ear or throat pain. The patient denies headache. CARDIOVASCULAR: The patient complains of chest pain as above. The patient denies palpitations. ABDOMEN: The patient denies nausea, vomiting, diarrhea, or constipation. CHEST: The patient complains of shortness of breath. The patient denies wheezes. GENITOURINARY: The patient denies dysuria or increased frequency of urination. NEUROMUSCULAR: The patient denies seizures or generalized weakness. PAST MEDICAL HISTORY: Significant for: 1. Hypertension. 2. Hypertensive heart disease. 3. History of right renal cell tumor, benign. 4. Chronic obstructive pulmonary disease. 5. Hypercholesterolemia. 6. Benign prostatic hypertrophy. 7. Hepatitis C, status post treatment in 2009. 8. Anxiety disorder. 9. Depression. PAST SURGICAL HISTORY: Significant for: 1. Appendectomy. 2. Right nephrectomy secondary to benign tumor. 3. Right knee surgery. CURRENT MEDICATIONS: 1. Amlodipine 5 mg one tablet p.o. daily. 2. Vitamin D 1000 units p.o. daily. 3. Colchicine 0.6 mg p.o. daily. 4. Oxycodone 30 mg p.o. q.6 h. p.r.n. 5. Protonix 40 mg p.o. daily. 6. Pyridium 100 mg p.o. 3 times daily. 7. Zocor 40 mg p.o. nightly. 8. Flomax 0.4 mg p.o. nightly. 9. Zanaflex 4 mg p.o. 3 times daily p.r.n. ALLERGIES: No known drug allergies. SOCIAL HISTORY: The patient is single and lives alone. The patient denies tobacco use having quit 1 year ago. The patient previously smoked one pack a day for 50 years. The patient denies alcohol use. PHYSICAL EXAMINATION: VITAL SIGNS: Temperature 98.0, respirations 18, pulse 68, blood pressure 129/73. GENERAL: The patient is a well-developed, well-nourished male, in no apparent distress. HEENT: Eyes, pupils equal and responsive to light and accommodation. Extraocular movements are intact. NECK: Supple without lymphadenopathy. CHEST: Lungs are clear to auscultation bilaterally without wheezes or rales. CARDIOVASCULAR: Regular rhythm and rate. S1 and S2 are normal without murmurs, rubs, or gallops. ABDOMEN: Soft, nontender, and nondistended. Positive bowel sounds. No evidence of hepatosplenomegaly. Currently, no rebound or guarding noted. EXTREMITIES: Negative for clubbing, cyanosis, or edema. RECTAL: Refused. GENITAL: Refused. NEUROLOGIC: Cranial nerves II through XII are grossly intact without focal deficits. Motor strength is 5/5 bilaterally intact. Deep tendon reflexes are 2+, plantar. LABORATORY STUDIES: WBC 4.9, hemoglobin 15.1, hematocrit 45.6, platelets 195,000. Sodium 142, potassium 4.0, chloride 105, CO2 28, BUN 12, creatinine 1.2, glucose 99. Troponin 0.001. An EKG demonstrated normal sinus rhythm. No acute ST changes or Q-waves noted. ASSESSMENT: This is a 73-year-old male with: 1. Chest pain. 2. Hypertension. 3. History of benign renal tumor. 4. Chronic obstructive pulmonary disease. 5. Hypercholesterolemia. 6. Benign prostatic hypertrophy. 7. History of hepatitis C. 8. Anxiety disorder. 9. Depression. TREATMENT: 1. Chest pain. A Cardiology consultation has been obtained with Dr. Dariusz Yin. Chest pain is atypical in nature. The patient may require cardiac stress test while in the hospital. 2. Hypertension. Continue Norvasc as above. 3. History of renal tumor. The right kidney was resected and tumor was benign. 4. Chronic obstructive pulmonary disease. A Pulmonary consultation has been obtained with Dr. Susy Morse. 5. Hypercholesterolemia. Continue Zocor as above. 6. Benign prostatic hypertrophy. Continue Flomax as above. 7. Hepatitis C. 8. Anxiety. 9. Depression. Leonardo Palencia M.D. DR: Moris JOB#: [id number] CC:
--- NOTE | 2018-11-03 23:30 | Consultation ---
DATE OF CONSULTATION: 11/03/2018 CARDIOLOGY CONSULTATION: CONSULTING PHYSICIAN: Dariusz Yin M.D. REFERRING PHYSICIAN: Susy Morse M.D. REASON FOR REFERRAL: Chest pain. HISTORY OF PRESENT ILLNESS: This 73-year-old gentleman with years of pain in the chest going up to his neck and down into the subaxillary area. This pain is there a lot of the time and he has had several hospitalizations apparently over the past few years for this evaluation. No cause has been found according to the patient. So, presented again because of the recurrence of the chest pain. He does have increasing amount of shortness of breath on exertion. He is not able to lay down flat because of his shortness of breath. Uses two pillows at night. The pain gets worse when he has movement of his left arm, when he tries to sit up and move around or cough or twist and turn according to the patient where the shortness of breath gets worse as well. Sometimes feels dizzy as well. PAST MEDICAL HISTORY: Positive for high blood pressure. No history of heart attack. No cancer. No stroke. He has history of hepatitis C that is treated and cured. No tuberculosis. No asthma. He does have emphysema or COPD. No ulcers. No kidney problems, except for the mass that was resected and was benign. No other liver problems except for the hepatitis C. No thyroid problems. No anemia, arthritis. No HIV, AIDS. He does have a history of blood clot in his left leg for which he is on anticoagulation. Apparently subsequently he has had evaluation including CT or other imaging that was negative for DVT and has been actually discontinued according to himself. He does have a history of prostatic enlargement. No other medical problems. He has been admitted to the hospital here on previous occasions for chest pain and basically same scenario and it was also felt by another airplane flight attendant who has seen the patient that his chest pain was likely musculoskeletal in origin. He even underwent a myocardial perfusion imaging that was nonischemic at that time. ALLERGIES: He is not allergic to any medication. SOCIAL HISTORY: He smoked up to approximately four years ago. No alcoholic beverages. No drugs. REVIEW OF SYSTEMS: GASTROINTESTINAL: Negative. GENITOURINARY: Negative. PULMONARY: Positive for coughing and wheezing. CONSTITUTIONAL: No fevers or chills. He does have some sweats at times. NEUROLOGICAL: Negative. PHYSICAL EXAMINATION: GENERAL: Shows to be a middle-aged gentleman, in no respiratory distress, although he was having severe pain and coughing and shortness of breath when I laid him down to examine him at approximately 20 or 30 degrees head of bed elevation. He twisted on the left side and continued to have coughing spasm and subsequently requested pain medications. NECK: Otherwise supple. LUNGS: Appeared to be relatively clear to auscultation and percussion. CARDIAC: The chest wall appears to be tender and reproduces the patient's pain. There is normal S1 and S2. Regular rate and rhythm. No heaves or thrills. ABDOMEN: Soft and nontender. Positive bowel sounds. EXTREMITIES: Showed no evidence of clubbing, cyanosis, nor edema, or pain. LABORATORY AND DIAGNOSTIC DATA: White count of 5.3, hemoglobin 14.2, platelet count 188. His sodium is 142, potassium 4.0, chloride 105, bicarb 28, BUN 12, creatinine 1.2, and glucose of 99. His liver function tests are all normal. CK was normal. His troponin on 2 occasions have been normal during his hospitalization previously as well. His CRP is less than 0.4. His proBNP last week was 115. His total cholesterol 130 with LDL of 74 and HDL of 45. TSH of 1.62. His INR was 1.0 and a PTT of 31. His imaging, he had an echocardiogram today, which I read is a technically difficult study with poor endocardial definition. Normal systolic function and wall motion. Ejection fraction 55 to 60%. Thickened mitral leaflets and IVC was normal size. No significant valvular regurgitation was noted. No pericardial effusion was noted. He did have a CT angiography of his chest and basically showed negative for acute pulmonary embolism. No other acute thoracic pathology. COPD changes, mild interstitial fibrotic changes were noted on the EKG and his electrocardiogram showed sinus rhythm, normal QRS axis, no ST or T-wave abnormalities. ASSESSMENT AND PLAN: 1. Chest pain likely costochondral in origin. 2. Dyspnea on exertion likely secondary to COPD. 3. COPD secondary to tobacco use disorder. 4. History of hepatitis C that was treated. 5. History of benign prostatic hypertrophy. Dr. Morse, this patient was seen in cardiac consultation. The patient's chest wall is exquisitely tender to palpation. He has had a recent myocardial perfusion imaging for the same pain approximately 6 months ago that was negative. Cardiac enzymes are negative. EKG is negative. The pain is reproducible on palpation. I doubt that the pain is actually cardiac in origin. I suspect musculoskeletal in origin. It is consistent with costochondritis. He does have a history of deep venous thrombosis, but his CT pulmonary angiography was negative for pulmonary embolism. He is not on any anticoagulation at the present time. He indicates he is very short of breath when he lays down in flat. There are no echocardiographic abnormalities for wall motion on the echocardiogram, although the echocardiogram was rather technically difficult. His ejection fraction previously on the prior myocardial perfusion imaging, which may be more accurate was 68% as calculated. His prior echocardiography in April of 2018 also showed basically normal wall motion, ejection fraction 60 to 65% at that time as well. Treatment likely with combination nonsteroidals for the chest pain. Treatment of shortness of breath will be left with you and I will follow the patient as needed. Dariusz Yin M.D. DR: MARIELOS JOB#: [id number] CC:
[2018-11-04 00:44] VITALS: BP 127/68
[2018-11-04 04:00] VITALS: BP 123/73
--- NOTE | 2018-11-04 07:24 | NUR ---
HAND-OFF: Report given to JOHN PAUL Gonzalez.
--- NOTE | 2018-11-04 07:25 | NUR ---
NURSE NOTES: Received patient awake alert and oriented, sitting comfortably in bed. IV at right antecubital, 20 gauge, saline lock. Bed at lowest level with 2 side rails up. Call light within reach. In no apparent distress at this time. Will continue to monitor.
[2018-11-04 08:00] VITALS: BP 120/69
[2018-11-04] MEDS: Aspirin Baby 81mg ORAL SCH (08:23)
[2018-11-04] MEDS: Meloxicam 15 MG TAB ORAL SCH (08:23)
[2018-11-04] MEDS: Heparin 5000 units/ml inj SUBQ SCH ×2 (08:26→21:10)
[2018-11-04] MEDS: Morphine Sulfate 4mg/ml Inj (IV/IM USE ONLY) IVP PRN ×3 (08:27→18:07)
[2018-11-04 09:01] LABS: ALANINE AMINOTRANSFERASE 24 U/L (12-78); ALBUMIN 3.7 G/DL (3.4-5.0); ALBUMIN/GLOBULIN RATIO 1.1 (1.0-2.7); ALKALINE PHOSPHATASE 65 U/L (46-116); ANION GAP 8 mmol/L (5-15); ASPARTATE AMINO TRANSFERASE 17 U/L (15-37); BILIRUBIN,TOTAL 0.5 MG/DL (0.2-1.0); BLOOD UREA NITROGEN 13 mg/dL (7-18); CALCIUM 8.8 MG/DL (8.5-10.1); CARBON DIOXIDE 28 MMOL/L (21-32); CHLORIDE 107 MMOL/L (98-107); CREATININE 1.2 MG/DL (0.55-1.30); PHOSPHORUS 2.7 MG/DL (2.5-4.9); POTASSIUM 4.6 MMOL/L (3.5-5.1); SODIUM 143 MMOL/L (136-145)
[2018-11-04 09:28] LABS: HEMATOCRIT 44.9 % (42.0-52.0); HEMOGLOBIN 14.7 G/DL (14.2-18.0); LYMPHOCYTES % (AUTO) 45.2 % (20.0-45.0); MEAN CORPUSCULAR VOLUME 94 FL (80-99); MONOCYTES % (AUTO) 9.5 % (1.0-10.0); NEUTROPHILS % (AUTO) 41.3 % (45.0-75.0); PLATELET COUNT 206 K/UL (150-450); RED BLOOD COUNT 4.79 M/UL (4.70-6.10); RED CELL DISTRIBUTION WIDTH 12.3 % (11.6-14.8)
[2018-11-04 12:00] VITALS: BP 128/67
--- NOTE | 2018-11-04 12:10 | Internal Med Progress Note ---
Subjective Date of Service: Nov 04, 2018 Physician Name Leonardo Palencia Attending Physician Jaylen Lara MD Current Medications Medications (Trade) Dose Ordered Sig/Felipe Route PRN Reason Start Time Stop Time Status Last Admin Dose Admin Acetaminophen (Tylenol) 650 mg Q4H PRN ORAL FEVER 11/02/18 15:30 12/02/18 15:29 Albuterol/ Ipratropium (Albuterol/ Ipratropium) 3 ml Q4H PRN HHN Shortness of Breath 11/02/18 15:30 11/07/18 15:29 11/02/18 22:23 Amlodipine Besylate (Norvasc) 5 mg DAILY ORAL 11/03/18 09:00 12/03/18 08:59 11/04/18 08:23 Aspirin (ASA) 162 mg DAILY ORAL 11/03/18 09:00 12/03/18 08:59 11/04/18 08:23 Colchicine (Colchicine) 0.6 mg DAILY ORAL 11/03/18 09:00 12/03/18 08:59 11/04/18 08:23 Enalaprilat (Vasotec) 2.5 mg Q6H PRN IV sbp more than 160 11/02/18 19:00 12/02/18 18:59 Heparin Sodium (Porcine) (Heparin 5000 units/ml) 5,000 units EVERY 12 HOURS SUBQ 11/02/18 21:00 12/02/18 20:59 11/04/18 08:26 Iopamidol (Isovue-370 150ml) 150 ml NOW PRN INJ Radiology Procedure 11/02/18 15:30 11/04/18 15:20 Ketorolac Tromethamine (Toradol 30mg) 30 mg Q6H PRN IV moderate pain ( 4-6) 11/02/18 15:30 11/07/18 15:29 Meloxicam (Mobic) 15 mg DAILY ORAL 11/04/18 09:00 12/04/18 08:59 11/04/18 08:23 Morphine Sulfate (Morphine Sulfate) 2 mg Q4H PRN IVP severe Pain (Pain Scale 7-10) 11/02/18 19:00 11/09/18 15:29 11/04/18 08:27 Nitroglycerin (Ntg) 0.4 mg Q5M PRN SL Prn Chest Pain 11/02/18 15:30 12/02/18 15:29 Ondansetron HCl (Zofran) 4 mg Q6H PRN IVP Nausea & Vomiting 11/02/18 15:30 12/02/18 15:29 Oxycodone HCl (Roxicodone) 30 mg Q6H PRN ORAL Mild Pain (Pain Scale 1-3) 11/02/18 15:30 11/09/18 15:29 Polyethylene Glycol (Miralax) 17 gm DAILYPRN PRN ORAL Constipation 11/02/18 15:30 12/02/18 15:29 11/02/18 22:00 Tamsulosin HCl (Flomax) 0.4 mg QHS ORAL 11/02/18 21:00 12/02/18 20:59 11/03/18 20:15 Temazepam (Restoril) 15 mg HSPRN PRN ORAL Insomnia 11/02/18 15:30 11/09/18 15:29 Allergies: Coded Allergies: No Known Allergies (Unverified , 10/27/12) ROS Limited/Unobtainable: No Constitutional: Reports: no symptoms HEENT: Reports: no symptoms Cardiovascular: Reports: chest pain Respiratory: Reports: shortness of breath Gastrointestinal/Abdominal: Reports: no symptoms Genitourinary: Reports: no symptoms Neurologic/Psychiatric: Reports: no symptoms Subjective 73 YO M admitted with left side chest pain and shortness of breath. Cover for Int [facility]-Dr Lara. Continues with chest pain and shortness of breath Objective Last Vital Signs Date Time Temp Pulse Resp B/P (MAP) Pulse Ox O2 Delivery O2 Flow Rate FiO2 11/04/18 09:00 Room Air 11/04/18 08:57 98.0 11/04/18 08:23 65 120/69 11/04/18 08:18 16 21 11/04/18 08:00 99 General Appearance: WD/WN, no apparent distress, alert EENT: PERRL/EOMI, normal ENT inspection Neck: non-tender, normal alignment, supple, normal inspection Cardiovascular: normal peripheral pulses, normal rate, regular rhythm, no gallop/murmur, no JVD Respiratory/Chest: chest wall non-tender, lungs clear, normal breath sounds, no respiratory distress, no accessory muscle use Abdomen: normal bowel sounds, non tender, soft, no organomegaly, no mass Extremities: normal range of motion Neurologic: media analyst II-XII grossly normal, no motor/sensory deficits Skin: normal pigmentation, warm/dry Laboratory Tests Test 11/04/18 07:00 White Blood Count 4.0 K/UL (4.8-10.8) L Red Blood Count 4.79 M/UL (4.70-6.10) Hemoglobin 14.7 G/DL (14.2-18.0) Hematocrit 44.9 % (42.0-52.0) Mean Corpuscular Volume 94 FL (80-99) Mean Corpuscular Hemoglobin 30.8 PG (27.0-31.0) Mean Corpuscular Hemoglobin Concent 32.9 G/DL (32.0-36.0) Red Cell Distribution Width 12.3 % (11.6-14.8) Platelet Count 206 K/UL (150-450) Mean Platelet Volume 9.2 FL (6.5-10.1) Neutrophils (%) (Auto) 41.3 % (45.0-75.0) L Lymphocytes (%) (Auto) 45.2 % (20.0-45.0) H Monocytes (%) (Auto) 9.5 % (1.0-10.0) Eosinophils (%) (Auto) 3.0 % (0.0-3.0) Basophils (%) (Auto) 1.0 % (0.0-2.0) Erythrocyte Sedimentation Rate 9 MM/HR (0-20) D-Dimer 0.48 mg/L FEU (0.00-0.49) Sodium Level 143 MMOL/L (136-145) Potassium Level 4.6 MMOL/L (3.5-5.1) Chloride Level 107 MMOL/L (98-107) Carbon Dioxide Level 28 MMOL/L (21-32) Anion Gap 8 mmol/L (5-15) Blood Urea Nitrogen 13 mg/dL (7-18) Creatinine 1.2 MG/DL (0.55-1.30) Estimat Glomerular Filtration Rate mL/min (>60) Glucose Level 117 MG/DL (74-106) H Uric Acid 8.6 MG/DL (2.6-7.2) H Calcium Level 8.8 MG/DL (8.5-10.1) Phosphorus Level 2.7 MG/DL (2.5-4.9) Magnesium Level 1.9 MG/DL (1.8-2.4) Total Bilirubin 0.5 MG/DL (0.2-1.0) Aspartate Amino Transf (AST/SGOT) 17 U/L (15-37) Alanine Aminotransferase (ALT/SGPT) 24 U/L (12-78) Alkaline Phosphatase 65 U/L (46-116) C-Reactive Protein, Quantitative < 0.4 mg/dL (0.00-0.90) Pro-B-Type Natriuretic Peptide 15 pg/mL (0-125) Total Protein 7.1 G/DL (6.4-8.2) Albumin 3.7 G/DL (3.4-5.0) Globulin 3.4 g/dL Albumin/Globulin Ratio 1.1 (1.0-2.7) Intake and Output 11/03/18 11/04/18 19:00 07:00 Intake Total 600 ml 480 ml Output Total 200 ml Balance 400 ml 480 ml Intake Oral 600 ml 480 ml Output Urine Total 200 ml # Voids 2 # Bowel Movements 3 Assessment/Plan Problem List: (1) Anxiety Assessment & Plan: ?panic attack? Await psych consult. (2) Depression (3) Hypercholesteremia (4) Renal mass (5) Chest pain, atypical Assessment & Plan: Reproducible. Await cardiology workup-see cardiology note. (6) HTN (hypertension) Assessment & Plan: Continue amlodipine and prn vasotec (7) COPD exacerbation (8) BPH (benign prostatic hypertrophy) (9) Hepatitis C Assessment & Plan: S/P treatment Status: not improved Leonardo Palencia MD Nov 04, 2018 12:10
--- NOTE | 2018-11-04 13:39 | Pulmonology Progress Note ---
Assessment/Plan Problems: (1) Costochondritis (2) Pleuritic chest pain (3) COPD (chronic obstructive pulmonary disease) (4) HTN (hypertension) (5) Hepatitis C Assessment/Plan MRI of Cspine and thorax symptomatic treatment check electrolytes pain management CT angio showed only COPD, and fibrosis monitor BP Subjective ROS Limited/Unobtainable: No Constitutional: Reports: no symptoms HEENT: Repors: no symptoms Respiratory: Reports: no symptoms Allergies: Coded Allergies: No Known Allergies (Unverified , 10/27/12) Objective Last 24 Hour Vital Signs Date Time Temp Pulse Resp B/P (MAP) Pulse Ox O2 Delivery O2 Flow Rate FiO2 11/04/18 12:50 98.0 11/04/18 12:00 98.4 65 18 128/67 (87) 100 11/04/18 09:00 Room Air 11/04/18 08:23 65 120/69 11/04/18 08:18 68 16 Room Air 21 11/04/18 08:00 98.0 65 18 120/69 (86) 99 11/04/18 04:00 98.0 61 18 123/73 (90) 98 11/04/18 00:44 97.9 71 18 127/68 (87) 96 11/03/18 21:00 Room Air 11/03/18 20:00 97.7 67 19 122/71 (88) 96 11/03/18 16:00 98.1 65 18 117/77 (90) 98 Intake and Output 11/03/18 11/04/18 19:00 07:00 Intake Total 600 ml 480 ml Output Total 200 ml Balance 400 ml 480 ml Intake Oral 600 ml 480 ml Output Urine Total 200 ml # Voids 2 # Bowel Movements 3 General Appearance: WD/WN HEENT: normocephalic, atraumatic Respiratory/Chest: chest wall non-tender, lungs clear, chest wall tender Cardiovascular: normal peripheral pulses, normal rate Abdomen: normal bowel sounds, soft, non tender Extremities: no cyanosis Skin: no rash Laboratory Tests 11/04/18 07:00: White Blood Count 4.0L, Red Blood Count 4.79, Hemoglobin 14.7, Hematocrit 44.9, Mean Corpuscular Volume 94, Mean Corpuscular Hemoglobin 30.8, Mean Corpuscular Hemoglobin Concent 32.9, Red Cell Distribution Width 12.3, Platelet Count 206, Mean Platelet Volume 9.2, Neutrophils (%) (Auto) 41.3L, Lymphocytes (%) (Auto) 45.2H, Monocytes (%) (Auto) 9.5, Eosinophils (%) (Auto) 3.0, Basophils (%) (Auto ) 1.0, Erythrocyte Sedimentation Rate 9, D-Dimer 0.48, Sodium Level 143, Potassium Level 4.6, Chloride Level 107, Carbon Dioxide Level 28, Anion Gap 8, Blood Urea Nitrogen 13, Creatinine 1.2, Estimat Glomerular Filtration Rate , Glucose Level 117H, Uric Acid 8.6H, Calcium Level 8.8, Phosphorus Level 2.7, Magnesium Level 1.9, Total Bilirubin 0.5, Aspartate Amino Transf (AST/SGOT) 17, Alanine Aminotransferase (ALT/SGPT) 24, Alkaline Phosphatase 65, C-Reactive Protein, Quantitative < 0.4, Pro-B-Type Natriuretic Peptide 15, Total Protein 7.1, Albumin 3.7, Globulin 3.4, Albumin/Globulin Ratio 1.1 Current Medications Medications (Trade) Dose Ordered Sig/Felipe Route PRN Reason Start Time Stop Time Status Last Admin Dose Admin Acetaminophen (Tylenol) 650 mg Q4H PRN ORAL FEVER 11/02/18 15:30 12/02/18 15:29 Albuterol/ Ipratropium (Albuterol/ Ipratropium) 3 ml Q4H PRN HHN Shortness of Breath 11/02/18 15:30 11/07/18 15:29 11/02/18 22:23 Amlodipine Besylate (Norvasc) 5 mg DAILY ORAL 11/03/18 09:00 12/03/18 08:59 11/04/18 08:23 Aspirin (ASA) 162 mg DAILY ORAL 11/03/18 09:00 12/03/18 08:59 11/04/18 08:23 Colchicine (Colchicine) 0.6 mg DAILY ORAL 11/03/18 09:00 12/03/18 08:59 11/04/18 08:23 Enalaprilat (Vasotec) 2.5 mg Q6H PRN IV sbp more than 160 11/02/18 19:00 12/02/18 18:59 Heparin Sodium (Porcine) (Heparin 5000 units/ml) 5,000 units EVERY 12 HOURS SUBQ 11/02/18 21:00 12/02/18 20:59 11/04/18 08:26 Iopamidol (Isovue-370 150ml) 150 ml NOW PRN INJ Radiology Procedure 11/02/18 15:30 11/04/18 15:20 Ketorolac Tromethamine (Toradol 30mg) 30 mg Q6H PRN IV moderate pain ( 4-6) 11/02/18 15:30 11/07/18 15:29 Meloxicam (Mobic) 15 mg DAILY ORAL 11/04/18 09:00 12/04/18 08:59 11/04/18 08:23 Morphine Sulfate (Morphine Sulfate) 2 mg Q4H PRN IVP severe Pain (Pain Scale 7-10) 11/02/18 19:00 11/09/18 15:29 11/04/18 12:20 Nitroglycerin (Ntg) 0.4 mg Q5M PRN SL Prn Chest Pain 11/02/18 15:30 12/02/18 15:29 Ondansetron HCl (Zofran) 4 mg Q6H PRN IVP Nausea & Vomiting 11/02/18 15:30 12/02/18 15:29 Oxycodone HCl (Roxicodone) 30 mg Q6H PRN ORAL Mild Pain (Pain Scale 1-3) 11/02/18 15:30 11/09/18 15:29 Polyethylene Glycol (Miralax) 17 gm DAILYPRN PRN ORAL Constipation 11/02/18 15:30 12/02/18 15:29 11/02/18 22:00 Tamsulosin HCl (Flomax) 0.4 mg QHS ORAL 11/02/18 21:00 12/02/18 20:59 11/03/18 20:15 Temazepam (Restoril) 15 mg HSPRN PRN ORAL Insomnia 11/02/18 15:30 11/09/18 15:29 Susy Morse MD Nov 04, 2018 13:39
--- NOTE | 2018-11-04 14:09 | NUR ---
CONCERNING MRI...PT IN TOO MUCH PAIN WHEN PT LAYS FLAT, PER PT DUE TO BOTH PAIN IN LEFT SIDE OF CHEST AND DIFFICULTY BREATHING. HE WAS IN THE [facility]ANNER FOR ONLY A MINUTE AND HAD TO COME OUT. JOHN PAUL HIGH HAS BEEN INFORMED. KALEB 14:00
[2018-11-04 16:00] VITALS: BP 121/69
--- NOTE | 2018-11-04 17:19 | Cardiology Report ---
APPROVED REPORT EKG Measurement Heart [id number] ID [id number] Normal sinus rhythm Normal ECG
--- NOTE | 2018-11-04 18:44 | Cardiology Report ---
APPROVED REPORT EKG Measurement Heart [id number] Normal sinus rhythm Normal ECG
--- NOTE | 2018-11-04 19:23 | Consultation ---
History of Present Illness General Chief Complaint: Chest Pain Present Illness HPI 73-year-old male, who presents with chief complaint of chest pain. the pt has hx of depression and anxiety. the pt was unable to participate and complete the mri due to severe anxiety. the pt is depressed and anxious. the pt has low energy. the pt has insomnia. Allergies: Coded Allergies: No Known Allergies (Unverified , 10/27/12) Medication History Scheduled Albuterol Sulfate* (Albuterol Sulfate Mdi*), 2 PUFF INH Q4H Amlodipine Besylate* (Amlodipine Besylate*), 5 MG ORAL DAILY, (Reported) Cephalexin* (Keflex*), 500 MG ORAL EVERY 6 HOURS Cholecalciferol (Vitamin D3)* (Vitamin D*), 2,000 UNITS ORAL DAILY, (Reported) Colchicine (Colcrys), 0.6 MG ORAL DAILY Ibuprofen* (Motrin*), 800 MG ORAL Q6H Pantoprazole* (Protonix*), 40 MG ORAL DAILY Phenazopyridine Hcl* (Pyridium*), 100 MG ORAL THREE TIMES A DAY Rivaroxaban (Xarelto*), Unknown Dose ORAL DAILY, (Reported) Simvastatin (Zocor), 40 MG PO QHS, (Reported) Tamsulosin HCl (Flomax), 0.4 MG PO QHS, (Reported) Scheduled PRN Oxycodone Hcl* (Roxicodone*), 30 MG ORAL Q6H PRN for For Pain, (Reported) Tizanidine Hcl* (Zanaflex*), Unknown Dose ORAL THREE TIMES A DAY PRN for For Pain, (Reported) Patient History Limited by: medical condition History Provided By: Patient, Medical Record, PMD Healthcare decision maker Resuscitation status Full Code Advanced Directive on File No Past Medical/Surgical History Past Medical/Surgical History: (1) Anxiety (2) Depression (3) Hypercholesteremia (4) Renal mass (5) Chest pain, atypical (6) Costochondritis (7) DVT of leg (deep venous thrombosis) (8) BPH (benign prostatic hypertrophy) (9) Pyelonephritis (10) Dysuria (11) Gastritis (12) HTN (hypertension) (13) COPD exacerbation (14) Hypertensive hypertrophic cardiomyopathy, without heart failure (15) Urinary tract infection (16) Ataxia (17) Chest pain of uncertain etiology (18) Deep vein thrombosis (DVT) of left lower extremity (19) Abscess of right axilla (20) Pyelonephritis, acute (21) Pleuritic chest pain (22) ACS (acute coronary syndrome) (23) COPD (chronic obstructive pulmonary disease) (24) Renal cell carcinoma (25) Hepatitis C Review of Systems Psychiatric: Reports: prior hx, anxiety, depressed feelings, emotional problems Physical Exam General Appearance: alert, severe distress, agitated Neurologic: oriented x 3, responsive, depressed affect Last 24 Hour Vital Signs Date Time Temp Pulse Resp B/P (MAP) Pulse Ox O2 Delivery O2 Flow Rate FiO2 11/04/18 18:37 98.7 11/04/18 16:00 98.7 71 15 121/69 (86) 100 11/04/18 12:00 98.4 65 18 128/67 (87) 100 11/04/18 09:00 Room Air 11/04/18 08:23 65 120/69 11/04/18 08:18 68 16 Room Air 21 11/04/18 08:00 98.0 65 18 120/69 (86) 99 11/04/18 04:00 98.0 61 18 123/73 (90) 98 11/04/18 00:44 97.9 71 18 127/68 (87) 96 11/03/18 21:00 Room Air 11/03/18 20:00 97.7 67 19 122/71 (88) 96 Intake and Output 11/03/18 11/04/18 19:00 07:00 Intake Total 600 ml 480 ml Output Total 200 ml Balance 400 ml 480 ml Intake Oral 600 ml 480 ml Output Urine Total 200 ml # Voids 2 # Bowel Movements 3 Laboratory Tests Test 11/04/18 07:00 11/04/18 15:25 White Blood Count 4.0 K/UL (4.8-10.8) L Red Blood Count 4.79 M/UL (4.70-6.10) Hemoglobin 14.7 G/DL (14.2-18.0) Hematocrit 44.9 % (42.0-52.0) Mean Corpuscular Volume 94 FL (80-99) Mean Corpuscular Hemoglobin 30.8 PG (27.0-31.0) Mean Corpuscular Hemoglobin Concent 32.9 G/DL (32.0-36.0) Red Cell Distribution Width 12.3 % (11.6-14.8) Platelet Count 206 K/UL (150-450) Mean Platelet Volume 9.2 FL (6.5-10.1) Neutrophils (%) (Auto) 41.3 % (45.0-75.0) L Lymphocytes (%) (Auto) 45.2 % (20.0-45.0) H Monocytes (%) (Auto) 9.5 % (1.0-10.0) Eosinophils (%) (Auto) 3.0 % (0.0-3.0) Basophils (%) (Auto) 1.0 % (0.0-2.0) Erythrocyte Sedimentation Rate 9 MM/HR (0-20) D-Dimer 0.48 mg/L FEU (0.00-0.49) Sodium Level 143 MMOL/L (136-145) Potassium Level 4.6 MMOL/L (3.5-5.1) Chloride Level 107 MMOL/L (98-107) Carbon Dioxide Level 28 MMOL/L (21-32) Anion Gap 8 mmol/L (5-15) Blood Urea Nitrogen 13 mg/dL (7-18) Creatinine 1.2 MG/DL (0.55-1.30) Estimat Glomerular Filtration Rate mL/min (>60) Glucose Level 117 MG/DL (74-106) H Uric Acid 8.6 MG/DL (2.6-7.2) H Calcium Level 8.8 MG/DL (8.5-10.1) Phosphorus Level 2.7 MG/DL (2.5-4.9) Magnesium Level 1.9 MG/DL (1.8-2.4) Total Bilirubin 0.5 MG/DL (0.2-1.0) Aspartate Amino Transf (AST/SGOT) 17 U/L (15-37) Alanine Aminotransferase (ALT/SGPT) 24 U/L (12-78) Alkaline Phosphatase 65 U/L (46-116) C-Reactive Protein, Quantitative < 0.4 mg/dL (0.00-0.90) Pro-B-Type Natriuretic Peptide 15 pg/mL (0-125) Total Protein 7.1 G/DL (6.4-8.2) Albumin 3.7 G/DL (3.4-5.0) Globulin 3.4 g/dL Albumin/Globulin Ratio 1.1 (1.0-2.7) Troponin I 0.010 ng/mL (0.000-0.056) Height (Feet): 5 Height (Inches): 8.00 Weight (Pounds): 198 Medications Current Medications Medications (Trade) Dose Ordered Sig/Felipe Route PRN Reason Start Time Stop Time Status Last Admin Dose Admin Acetaminophen (Tylenol) 650 mg Q4H PRN ORAL FEVER 11/02/18 15:30 12/02/18 15:29 Albuterol/ Ipratropium (Albuterol/ Ipratropium) 3 ml Q4H PRN HHN Shortness of Breath 11/02/18 15:30 11/07/18 15:29 11/02/18 22:23 Amlodipine Besylate (Norvasc) 5 mg DAILY ORAL 11/03/18 09:00 12/03/18 08:59 11/04/18 08:23 Aspirin (ASA) 162 mg DAILY ORAL 11/03/18 09:00 12/03/18 08:59 11/04/18 08:23 Colchicine (Colchicine) 0.6 mg DAILY ORAL 11/03/18 09:00 12/03/18 08:59 11/04/18 08:23 Enalaprilat (Vasotec) 2.5 mg Q6H PRN IV sbp more than 160 11/02/18 19:00 12/02/18 18:59 Heparin Sodium (Porcine) (Heparin 5000 units/ml) 5,000 units EVERY 12 HOURS SUBQ 11/02/18 21:00 12/02/18 20:59 11/04/18 08:26 Ketorolac Tromethamine (Toradol 30mg) 30 mg Q6H PRN IV moderate pain ( 4-6) 11/02/18 15:30 11/07/18 15:29 Meloxicam (Mobic) 15 mg DAILY ORAL 11/04/18 09:00 12/04/18 08:59 11/04/18 08:23 Morphine Sulfate (Morphine Sulfate) 2 mg Q4H PRN IVP severe Pain (Pain Scale 7-10) 11/02/18 19:00 11/09/18 15:29 11/04/18 18:07 Nitroglycerin (Ntg) 0.4 mg Q5M PRN SL Prn Chest Pain 11/02/18 15:30 12/02/18 15:29 Ondansetron HCl (Zofran) 4 mg Q6H PRN IVP Nausea & Vomiting 11/02/18 15:30 12/02/18 15:29 Oxycodone HCl (Roxicodone) 30 mg Q6H PRN ORAL Mild Pain (Pain Scale 1-3) 11/02/18 15:30 11/09/18 15:29 Polyethylene Glycol (Miralax) 17 gm DAILYPRN PRN ORAL Constipation 11/02/18 15:30 12/02/18 15:29 11/02/18 22:00 Tamsulosin HCl (Flomax) 0.4 mg QHS ORAL 11/02/18 21:00 12/02/18 20:59 11/03/18 20:15 Temazepam (Restoril) 15 mg HSPRN PRN ORAL Insomnia 11/02/18 15:30 11/09/18 15:29 Assessment/Plan Problem List: (1) Depression ICD Codes: F32.9 - Major depressive disorder, single episode, unspecified SNOMED: 96917897 (2) Anxiety ICD Codes: F41.9 - Anxiety disorder, unspecified SNOMED: 52754885 Status: not improved, unchanged Assessment/Plan lexapro 10mg qam remeron 7.5mg qhs ativan prn the pt was provided with simone/Angelika Noel MD Nov 04, 2018 19:23
[2018-11-04] MEDS ORDERED: LORazepam 1mg tab ORAL PRN (19:30)
--- NOTE | 2018-11-04 19:30 | NUR ---
NURSE NOTES: Report taken from JOHN PAUL Gonzalez. Patient is awake and oriented, A&Ox4. No signs of distress, on room air. Does state that he is having continual pain, 01/13, explained pain management process. IV site c/d/i, saline locked. No skin issues noted. Call light within reach, bed in lowest position.
--- NOTE | 2018-11-04 19:38 | NUR ---
HAND-OFF: Report given to JOHN PAUL Langley.
[2018-11-04 20:00] VITALS: BP 118/67
[2018-11-04] MEDS: Tamsulosin 0.4mg cap ORAL SCH (21:08)
[2018-11-05 07:09] LABS: BASOPHILS % (AUTO) 0.8 % (0.0-2.0); EOSINOPHILS % (AUTO) 2.3 % (0.0-3.0); HEMATOCRIT 40.7 % (42.0-52.0); HEMOGLOBIN 13.5 G/DL (14.2-18.0); LYMPHOCYTES % (AUTO) 45.2 % (20.0-45.0); MEAN CORPUSCULAR VOLUME 94 FL (80-99); MONOCYTES % (AUTO) 10.2 % (1.0-10.0); NEUTROPHILS % (AUTO) 41.5 % (45.0-75.0); PLATELET COUNT 179 K/UL (150-450); RED BLOOD COUNT 4.33 M/UL (4.70-6.10); RED CELL DISTRIBUTION WIDTH 12.1 % (11.6-14.8); WHITE BLOOD COUNT 4.2 K/UL (4.8-10.8)
[2018-11-05 07:29] LABS: ANION GAP 7 mmol/L (5-15); BLOOD UREA NITROGEN 17 mg/dL (7-18); CALCIUM 8.8 MG/DL (8.5-10.1); CARBON DIOXIDE 28 MMOL/L (21-32); CHLORIDE 108 MMOL/L (98-107); CREATININE 1.4 MG/DL (0.55-1.30); POTASSIUM 4.5 MMOL/L (3.5-5.1); SODIUM 143 MMOL/L (136-145)
--- NOTE | 2018-11-05 07:29 | NUR ---
HAND-OFF: Report given to JOHN PAUL Sparrow.
--- NOTE | 2018-11-05 07:52 | NUR ---
NURSE NOTES: Pt in bed a/o x 4 having breakfast on 2L NC. Pt able to verbalize needs. C/O "chest aches". Heart sounds S1S2, EKG from 11/04 NSR, troponin neg. Pt has patent RAC IV Heplock. Pt left in bed in low position, call light within reach, bed locked. Will continue to monitor.
[2018-11-05 08:00] VITALS: BP 133/74
[2018-11-05] MEDS: Aspirin Baby 81mg ORAL SCH (09:13)
[2018-11-05] MEDS: Meloxicam 15 MG TAB ORAL SCH (09:13)
[2018-11-05] MEDS: Heparin 5000 units/ml inj SUBQ SCH ×2 (09:16→21:05)
--- NOTE | 2018-11-05 09:20 | NUR ---
NURSE NOTES: Pt C/O chest pain stabbing sensation to left chest, radiates to neck. Attempted to give nitro, pt refuses, states he gets "massive headaches". Educated on the importance of getting Nitro if the chest pain was related to his heart muscle and that medication served to dilate the arteries in his heart. The Pt still refuses Nitro. Administered Morphine and obtained EKG. EKG NSR, minimal voltage criteria for LVH, may be normal variant. Non specific T wave abnormality. Called Dr. Yin and notified of Chest pain, read to him EKG report. Per MD, no new orders, pain may be related to musculo skeletal underlying condition. Will continue to monitor. Will round on pt often and PRN. Addendum: 11/05/18 at 1823 by Kyara Lange RN Nitro bottle placed in pts cassette in medication room for future use/need. Addendum: 11/05/18 at 1825 by Kyara Lange RN Pt rounded throughout the day, the patient verbalizes decreased chest pain with morphine administration. Pt in no acute distress, pt is talkative a/o x 4. Will continue to monitor.
[2018-11-05] MEDS: Morphine Sulfate 4mg/ml Inj (IV/IM USE ONLY) IVP PRN ×2 (09:28→15:05)
[2018-11-05 12:00] VITALS: BP 120/73
--- NOTE | 2018-11-05 13:55 | Pulmonology Progress Note ---
Assessment/Plan Problems: (1) Costochondritis (2) Pleuritic chest pain (3) COPD (chronic obstructive pulmonary disease) (4) HTN (hypertension) (5) Hepatitis C Assessment/Plan MRI of Cspine and thorax will be done, symptomatic treatment check electrolytes pain management CT angio showed only COPD, and fibrosis monitor BP Subjective ROS Limited/Unobtainable: No Constitutional: Reports: no symptoms HEENT: Repors: no symptoms Respiratory: Reports: no symptoms Allergies: Coded Allergies: No Known Allergies (Unverified , 10/27/12) Objective Last 24 Hour Vital Signs Date Time Temp Pulse Resp B/P (MAP) Pulse Ox O2 Delivery O2 Flow Rate FiO2 11/05/18 12:00 98.1 68 19 120/73 (89) 98 11/05/18 09:58 97.6 11/05/18 09:13 71 133/74 11/05/18 09:00 Room Air 11/05/18 08:00 97.6 71 19 133/74 (93) 97 11/04/18 21:38 98.7 11/04/18 21:00 Room Air 11/04/18 20:00 97.8 65 18 118/67 (84) 98 11/04/18 19:49 77 18 Room Air 21 11/04/18 16:00 98.7 71 15 121/69 (86) 100 Intake and Output 11/04/18 11/05/18 19:00 07:00 Intake Total 480 ml Balance 480 ml Intake Oral 480 ml # Voids 3 General Appearance: WD/WN HEENT: normocephalic, atraumatic Respiratory/Chest: chest wall non-tender, lungs clear Cardiovascular: normal peripheral pulses, normal rate Abdomen: normal bowel sounds, soft, non tender Genitourinary: normal external genitalia Skin: no rash 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/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 II-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 grossly normal Laboratory Tests 11/04/18 15:25: Troponin I 0.010 11/05/18 05:45: White Blood Count 4.2L, Red Blood Count 4.33L, Hemoglobin 13.5L, Hematocrit 40.7L, Mean Corpuscular Volume 94, Mean Corpuscular Hemoglobin 31.3H, Mean Corpuscular Hemoglobin Concent 33.3, Red Cell Distribution Width 12.1, Platelet Count 179, Mean Platelet Volume 9.1, Neutrophils (%) (Auto) 41.5L, Lymphocytes ( %) (Auto) 45.2H, Monocytes (%) (Auto) 10.2H, Eosinophils (%) (Auto) 2.3, Basophils (%) (Auto) 0.8, Sodium Level 143, Potassium Level 4.5, Chloride Level 108H, Carbon Dioxide Level 28, Anion Gap 7, Blood Urea Nitrogen 17, Creatinine 1.4H, Estimat Glomerular Filtration Rate , Glucose Level 114H, Calcium Level 8.8 Current Medications Medications (Trade) Dose Ordered Sig/Felipe Route PRN Reason Start Time Stop Time Status Last Admin Dose Admin Acetaminophen (Tylenol) 650 mg Q4H PRN ORAL FEVER 11/02/18 15:30 12/02/18 15:29 Albuterol/ Ipratropium (Albuterol/ Ipratropium) 3 ml Q4H PRN HHN Shortness of Breath 11/02/18 15:30 11/07/18 15:29 11/02/18 22:23 Amlodipine Besylate (Norvasc) 5 mg DAILY ORAL 11/03/18 09:00 12/03/18 08:59 11/05/18 09:13 Aspirin (ASA) 162 mg DAILY ORAL 11/03/18 09:00 12/03/18 08:59 11/05/18 09:13 Colchicine (Colchicine) 0.6 mg DAILY ORAL 11/03/18 09:00 12/03/18 08:59 11/05/18 09:13 Enalaprilat (Vasotec) 2.5 mg Q6H PRN IV sbp more than 160 11/02/18 19:00 12/02/18 18:59 Escitalopram Oxalate (Lexapro) 10 mg DAILY ORAL 11/05/18 09:00 12/05/18 08:59 11/05/18 09:13 Heparin Sodium (Porcine) (Heparin 5000 units/ml) 5,000 units EVERY 12 HOURS SUBQ 11/02/18 21:00 12/02/18 20:59 11/05/18 09:16 Ketorolac Tromethamine (Toradol 30mg) 30 mg Q6H PRN IV moderate pain ( 4-6) 11/02/18 15:30 11/07/18 15:29 11/04/18 21:08 Lorazepam (Ativan) 2 mg Q6H PRN ORAL For Anxiety 11/04/18 19:30 11/11/18 19:29 Meloxicam (Mobic) 15 mg DAILY ORAL 11/04/18 09:00 12/04/18 08:59 11/05/18 09:13 Morphine Sulfate (Morphine Sulfate) 2 mg Q4H PRN IVP severe Pain (Pain Scale 7-10) 11/02/18 19:00 11/09/18 15:29 11/05/18 09:28 Nitroglycerin (Ntg) 0.4 mg Q5M PRN SL Prn Chest Pain 11/02/18 15:30 12/02/18 15:29 Ondansetron HCl (Zofran) 4 mg Q6H PRN IVP Nausea & Vomiting 11/02/18 15:30 12/02/18 15:29 Oxycodone HCl (Roxicodone) 30 mg Q6H PRN ORAL Mild Pain (Pain Scale 1-3) 11/02/18 15:30 11/09/18 15:29 Polyethylene Glycol (Miralax) 17 gm DAILYPRN PRN ORAL Constipation 11/02/18 15:30 12/02/18 15:29 11/02/18 22:00 Tamsulosin HCl (Flomax) 0.4 mg QHS ORAL 11/02/18 21:00 12/02/18 20:59 11/04/18 21:08 Temazepam (Restoril) 15 mg HSPRN PRN ORAL Insomnia 11/02/18 15:30 11/09/18 15:29 Susy Morse MD Nov 05, 2018 13:55
[2018-11-05 16:00] VITALS: BP 131/76
--- NOTE | 2018-11-05 16:00 | NUR ---
Pt administered Ativan and Morphine for MRI procedure. Pt was anxious, and states he is claustrophobic. Pt was able to have MRI performed, awaiting results.
--- NOTE | 2018-11-05 18:10 | Internal Med Progress Note ---
Subjective Date of Service: Nov 05, 2018 Physician Name Leonardo Palencia Attending Physician Jaylen Lara MD Current Medications Medications (Trade) Dose Ordered Sig/Felipe Route PRN Reason Start Time Stop Time Status Last Admin Dose Admin Acetaminophen (Tylenol) 650 mg Q4H PRN ORAL FEVER 11/02/18 15:30 12/02/18 15:29 Albuterol/ Ipratropium (Albuterol/ Ipratropium) 3 ml Q4H PRN HHN Shortness of Breath 11/02/18 15:30 11/07/18 15:29 11/02/18 22:23 Amlodipine Besylate (Norvasc) 5 mg DAILY ORAL 11/03/18 09:00 12/03/18 08:59 11/05/18 09:13 Aspirin (ASA) 162 mg DAILY ORAL 11/03/18 09:00 12/03/18 08:59 11/05/18 09:13 Colchicine (Colchicine) 0.6 mg DAILY ORAL 11/03/18 09:00 12/03/18 08:59 11/05/18 09:13 Enalaprilat (Vasotec) 2.5 mg Q6H PRN IV sbp more than 160 11/02/18 19:00 12/02/18 18:59 Escitalopram Oxalate (Lexapro) 10 mg DAILY ORAL 11/05/18 09:00 12/05/18 08:59 11/05/18 09:13 Heparin Sodium (Porcine) (Heparin 5000 units/ml) 5,000 units EVERY 12 HOURS SUBQ 11/02/18 21:00 12/02/18 20:59 11/05/18 09:16 Ketorolac Tromethamine (Toradol 30mg) 30 mg Q6H PRN IV moderate pain ( 4-6) 11/02/18 15:30 11/07/18 15:29 11/04/18 21:08 Lorazepam (Ativan) 2 mg Q6H PRN ORAL For Anxiety 11/04/18 19:30 11/11/18 19:29 11/05/18 14:13 Meloxicam (Mobic) 15 mg DAILY ORAL 11/04/18 09:00 12/04/18 08:59 11/05/18 09:13 Morphine Sulfate (Morphine Sulfate) 2 mg Q4H PRN IVP severe Pain (Pain Scale 7-10) 11/02/18 19:00 11/09/18 15:29 11/05/18 15:05 Nitroglycerin (Ntg) 0.4 mg Q5M PRN SL Prn Chest Pain 11/02/18 15:30 12/02/18 15:29 Ondansetron HCl (Zofran) 4 mg Q6H PRN IVP Nausea & Vomiting 11/02/18 15:30 12/02/18 15:29 Oxycodone HCl (Roxicodone) 30 mg Q6H PRN ORAL Mild Pain (Pain Scale 1-3) 11/02/18 15:30 11/09/18 15:29 Polyethylene Glycol (Miralax) 17 gm DAILYPRN PRN ORAL Constipation 11/02/18 15:30 12/02/18 15:29 11/02/18 22:00 Tamsulosin HCl (Flomax) 0.4 mg QHS ORAL 11/02/18 21:00 12/02/18 20:59 11/04/18 21:08 Temazepam (Restoril) 15 mg HSPRN PRN ORAL Insomnia 11/02/18 15:30 11/09/18 15:29 Allergies: Coded Allergies: No Known Allergies (Unverified , 10/27/12) ROS Limited/Unobtainable: No Constitutional: Reports: no symptoms HEENT: Reports: no symptoms Cardiovascular: Reports: chest pain Respiratory: Reports: no symptoms Gastrointestinal/Abdominal: Reports: no symptoms Genitourinary: Reports: no symptoms Neurologic/Psychiatric: Reports: no symptoms Subjective 73 YO M admitted with left side chest pain and shortness of breath. Cover for Int [facility]-Dr Lara. Continues with chest pain and shortness of breath Objective Last Vital Signs Date Time Temp Pulse Resp B/P (MAP) Pulse Ox O2 Delivery O2 Flow Rate FiO2 11/05/18 16:00 97.8 66 19 131/76 (94) 99 11/05/18 09:45 Room Air 21 Laboratory Tests Test 11/05/18 05:45 White Blood Count 4.2 K/UL (4.8-10.8) L Red Blood Count 4.33 M/UL (4.70-6.10) L Hemoglobin 13.5 G/DL (14.2-18.0) L Hematocrit 40.7 % (42.0-52.0) L Mean Corpuscular Volume 94 FL (80-99) Mean Corpuscular Hemoglobin 31.3 PG (27.0-31.0) H Mean Corpuscular Hemoglobin Concent 33.3 G/DL (32.0-36.0) Red Cell Distribution Width 12.1 % (11.6-14.8) Platelet Count 179 K/UL (150-450) Mean Platelet Volume 9.1 FL (6.5-10.1) Neutrophils (%) (Auto) 41.5 % (45.0-75.0) L Lymphocytes (%) (Auto) 45.2 % (20.0-45.0) H Monocytes (%) (Auto) 10.2 % (1.0-10.0) H Eosinophils (%) (Auto) 2.3 % (0.0-3.0) Basophils (%) (Auto) 0.8 % (0.0-2.0) Sodium Level 143 MMOL/L (136-145) Potassium Level 4.5 MMOL/L (3.5-5.1) Chloride Level 108 MMOL/L (98-107) H Carbon Dioxide Level 28 MMOL/L (21-32) Anion Gap 7 mmol/L (5-15) Blood Urea Nitrogen 17 mg/dL (7-18) Creatinine 1.4 MG/DL (0.55-1.30) H Estimat Glomerular Filtration Rate mL/min (>60) Glucose Level 114 MG/DL (74-106) H Calcium Level 8.8 MG/DL (8.5-10.1) Intake and Output 11/04/18 11/05/18 19:00 07:00 Intake Total 480 ml Balance 480 ml Intake Oral 480 ml # Voids 3 Objective General Appearance: WD/WN, no apparent distress, alert EENT: PERRL/EOMI, normal ENT inspection Neck: non-tender, normal alignment, supple, normal inspection Cardiovascular: normal peripheral pulses, normal rate, regular rhythm, no gallop/murmur, no JVD Respiratory/Chest: chest wall non-tender, lungs clear, normal breath sounds, no respiratory distress, no accessory muscle use Abdomen: normal bowel sounds, non tender, soft, no organomegaly, no mass Extremities: normal range of motion 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 Await psych consult. (2) Depression (3) Hypercholesteremia (4) Renal mass (5) Chest pain, atypical Assessment & Plan: Reproducible. Await cardiology workup-see cardiology note. (6) HTN (hypertension) Assessment & Plan: Continue amlodipine and prn vasotec (7) COPD exacerbation (8) BPH (benign prostatic hypertrophy) (9) Hepatitis C Assessment & Plan: S/P treatment Status: stable Leonardo Palencia MD Nov 05, 2018 18:10
--- NOTE | 2018-11-05 18:44 | Diagnostic Imaging Report ---
Indication: Radiating pain from mid back to chest, history of neck pain Technique: Sagittal T1 FLAIR PROPELLER, sagittal T2 PROPELLOR, sagittal STIR, axial T2 PROPELLER, axial 3D COSMIC ASPIR images were obtained through the cervical spine Comparison: Reference made to CT cervical spine dated 07/11/2016 Findings: Marrow signal loss in the C5 and C6 vertebral bodies likely reflects degenerative sclerotic changes demonstrated on prior CT. Vertebral marrow signal is otherwise normal. Bony alignment is normal vertebral body heights are preserved except for slight degenerative remodeling changes of the C6 vertebral body. Intrinsic cord signal is normal. At C4-5, there is circumferential annular bulge. This results in borderline narrowing of the spinal canal at this level. The neural foramina are preserved. At C5-6, there is circumferential annular bulge and degenerative disc narrowing, the latter is more striking on the prior CT scan on the MRI images. This results in minimal if any narrowing of the spinal canal. There is moderate to severe narrowing of the bilateral neural foramina. At C6-7, there is mild circumferential annular bulge which results in borderline narrowing of the spinal canal. There is severe stenosis of the neural foramina bilaterally. At the remaining disc levels, no significant disc bulge or protrusion, spinal stenosis, or neural foraminal narrowing. The included extraspinal soft tissues are unremarkable. Impression: No acute abnormality Multilevel degenerative changes, as detailed on a level by level basis above, similar to those reported on prior neck CT, although the neural foramina stenoses may be progressive since that study
--- NOTE | 2018-11-05 19:11 | NUR ---
HAND-OFF: Report given to JOHN PAUL Mcgill. Pt left in stable condition, a/o x 4 in no acute distress. Skid socks on, bed in low positon, call light within reach.
--- NOTE | 2018-11-05 19:15 | NUR ---
NURSE NOTES: Report taken from JOHN PAUL Sparrow. Patient is awake and in bed, A&Ox4. Stating that he is relaxed from the ativan, and is having 3/10 pain. MRI results are still pending. IV site is c/d/i. No signs of distress on room air. Bed in lowest position, call light within reach.
--- NOTE | 2018-11-05 20:02 | General Progress Note ---
Assessment/Plan Problem List: (1) Depression ICD Codes: F32.9 - Major depressive disorder, single episode, unspecified SNOMED: 63906224 (2) Anxiety ICD Codes: F41.9 - Anxiety disorder, unspecified SNOMED: 19453729 Assessment/Plan lexapro 10mg qam remeron 7.5mg qhs ativan prn the pt was provided with ro/st Subjective Neurologic/Psychiatric: Reports: anxiety, depressed, emotional problems Allergies: Coded Allergies: No Known Allergies (Unverified , 10/27/12) Objective Last 24 Hour Vital Signs Date Time Temp Pulse Resp B/P (MAP) Pulse Ox O2 Delivery O2 Flow Rate FiO2 11/05/18 16:00 97.8 66 19 131/76 (94) 99 11/05/18 15:35 98.1 11/05/18 12:00 98.1 68 19 120/73 (89) 98 11/05/18 09:45 82 16 Room Air 21 11/05/18 09:13 71 133/74 11/05/18 09:00 Room Air 11/05/18 08:00 97.6 71 19 133/74 (93) 97 11/04/18 21:38 98.7 11/04/18 21:00 Room Air Intake and Output 11/04/18 11/05/18 19:00 07:00 Intake Total 480 ml Balance 480 ml Intake Oral 480 ml # Voids 3 Laboratory Tests 11/05/18 05:45: White Blood Count 4.2L, Red Blood Count 4.33L, Hemoglobin 13.5L, Hematocrit 40.7L, Mean Corpuscular Volume 94, Mean Corpuscular Hemoglobin 31.3H, Mean Corpuscular Hemoglobin Concent 33.3, Red Cell Distribution Width 12.1, Platelet Count 179, Mean Platelet Volume 9.1, Neutrophils (%) (Auto) 41.5L, Lymphocytes ( %) (Auto) 45.2H, Monocytes (%) (Auto) 10.2H, Eosinophils (%) (Auto) 2.3, Basophils (%) (Auto) 0.8, Sodium Level 143, Potassium Level 4.5, Chloride Level 108H, Carbon Dioxide Level 28, Anion Gap 7, Blood Urea Nitrogen 17, Creatinine 1.4H, Estimat Glomerular Filtration Rate , Glucose Level 114H, Calcium Level 8.8 Height (Feet): 5 Height (Inches): 8.00 Weight (Pounds): 198 General Appearance: alert, moderate distress, obese Neurologic: oriented x 3, responsive, depressed affect Angelika Ley MD Nov 05, 2018 20:02
--- NOTE | 2018-11-05 20:27 | Cardiology Progress Note ---
Assessment/Plan Assessment/Plan 1. Chest pain likely costochondral in origin. 2. Dyspnea on exertion likely secondary to COPD. 3. COPD secondary to tobacco use disorder. 4. History of hepatitis C that was treated. 5. History of benign prostatic hypertrophy all trop neg ddimer neg g ctpa neg mri of peggy brown noted abn Objective Last 24 Hour Vital Signs Date Time Temp Pulse Resp B/P (MAP) Pulse Ox O2 Delivery O2 Flow Rate FiO2 11/05/18 20:00 69 18 Room Air 21 11/05/18 16:00 97.8 66 19 131/76 (94) 99 11/05/18 15:35 98.1 11/05/18 12:00 98.1 68 19 120/73 (89) 98 11/05/18 09:45 82 16 Room Air 21 11/05/18 09:13 71 133/74 11/05/18 09:00 Room Air 11/05/18 08:00 97.6 71 19 133/74 (93) 97 11/04/18 21:38 98.7 11/04/18 21:00 Room Air Intake and Output 11/04/18 11/05/18 19:00 07:00 Intake Total 480 ml Balance 480 ml Intake Oral 480 ml # Voids 3 Laboratory Tests Test 11/05/18 05:45 White Blood Count 4.2 K/UL (4.8-10.8) L Red Blood Count 4.33 M/UL (4.70-6.10) L Hemoglobin 13.5 G/DL (14.2-18.0) L Hematocrit 40.7 % (42.0-52.0) L Mean Corpuscular Volume 94 FL (80-99) Mean Corpuscular Hemoglobin 31.3 PG (27.0-31.0) H Mean Corpuscular Hemoglobin Concent 33.3 G/DL (32.0-36.0) Red Cell Distribution Width 12.1 % (11.6-14.8) Platelet Count 179 K/UL (150-450) Mean Platelet Volume 9.1 FL (6.5-10.1) Neutrophils (%) (Auto) 41.5 % (45.0-75.0) L Lymphocytes (%) (Auto) 45.2 % (20.0-45.0) H Monocytes (%) (Auto) 10.2 % (1.0-10.0) H Eosinophils (%) (Auto) 2.3 % (0.0-3.0) Basophils (%) (Auto) 0.8 % (0.0-2.0) Sodium Level 143 MMOL/L (136-145) Potassium Level 4.5 MMOL/L (3.5-5.1) Chloride Level 108 MMOL/L (98-107) H Carbon Dioxide Level 28 MMOL/L (21-32) Anion Gap 7 mmol/L (5-15) Blood Urea Nitrogen 17 mg/dL (7-18) Creatinine 1.4 MG/DL (0.55-1.30) H Estimat Glomerular Filtration Rate mL/min (>60) Glucose Level 114 MG/DL (74-106) H Calcium Level 8.8 MG/DL (8.5-10.1) Dariusz Yin MD Nov 05, 2018 20:27
[2018-11-05 21:00] VITALS: BP 130/82
[2018-11-05] MEDS: Tamsulosin 0.4mg cap ORAL SCH (21:05)
[2018-11-06 00:02] VITALS: BP 116/60
--- NOTE | 2018-11-06 00:53 | NUR ---
NURSE NOTES: Received report from Shivam COKER. Pt asleep in bed. VSS, no signs of pain or distress. Call light in reach, bed in lowest position, side rails up x2. Will continue to monitor pt.
--- NOTE | 2018-11-06 01:04 | NUR ---
HAND-OFF: Report given to JOHN PAUL Rivera. Patient asleep, vitals stable.
[2018-11-06 04:00] VITALS: BP 110/65
[2018-11-06 07:01] LABS: EOSINOPHILS % (AUTO) 2.1 % (0.0-3.0); HEMATOCRIT 41.3 % (42.0-52.0); LYMPHOCYTES % (AUTO) 33.3 % (20.0-45.0); MEAN CORPUSCULAR VOLUME 94 FL (80-99); MONOCYTES % (AUTO) 7.6 % (1.0-10.0); PLATELET COUNT 148 K/UL (150-450); RED BLOOD COUNT 4.42 M/UL (4.70-6.10); WHITE BLOOD COUNT 4.3 K/UL (4.8-10.8)
[2018-11-06 07:05] LABS: ANION GAP 9 mmol/L (5-15); BLOOD UREA NITROGEN 22 mg/dL (7-18); CALCIUM 9.4 MG/DL (8.5-10.1); CARBON DIOXIDE 25 MMOL/L (21-32); CHLORIDE 109 MMOL/L (98-107); CREATININE 1.1 MG/DL (0.55-1.30); POTASSIUM 4.8 MMOL/L (3.5-5.1); SODIUM 143 MMOL/L (136-145)
--- NOTE | 2018-11-06 07:34 | NUR ---
NURSE NOTES: Pt in bed a/o x 4 in no acute distress. Pt states he had a good night sleep, denies chest pain, denies SOB on room air. Patent RAC IV SL. Discussed with patient plan for the day, board updated. Pt left in bed in low position, call light within reach, skid socks on, bed locked.
--- NOTE | 2018-11-06 07:44 | NUR ---
HAND-OFF: Report given to Ngozi COKER. Pt is stable.
[2018-11-06 07:58] VITALS: BP 131/74
[2018-11-06] MEDS: Meloxicam 15 MG TAB ORAL SCH (08:38)
[2018-11-06] MEDS: Aspirin Baby 81mg ORAL SCH (08:39)
--- NOTE | 2018-11-06 09:31 | Diagnostic Imaging Report ---
Indication: Radiating pain from mid back to chest, neck pain Technique: Sagittal T1 fast spin echo, sagittal T2 fast echo, sagittal STIR, axial T2 fast spin echo images were obtained through the thoracic spine Comparison: Reference made to chest CT angiogram dated 11/02/2018 Findings: Bony alignment is normal. Vertebral body heights are preserved. Vertebral marrow signal is preserved. The disc spaces are preserved. There is minimal circumferential annular bulge at T9-10 and T10-11, which does not significantly impinge upon the spinal canal. Intrinsic cord signal is normal. The surrounding soft tissues are unremarkable. There is ligamentum flavum hypertrophy at T4-5 posteriorly which likewise does not impinge significantly upon the spinal canal. Other less severe areas of ligamentum flavum hypertrophy are also noted in the mid and lower thoracic spine without any significant spinal canal impingement The neural foramina are all preserved. The included extra spinal soft tissues are unremarkable Impression: Essentially unremarkable exam. Minimal degenerative changes as described
[2018-11-06] MEDS: Heparin 5000 units/ml inj SUBQ SCH (10:02)
[2018-11-06 12:00] VITALS: BP 117/66
[2018-11-06] MEDS ORDERED: Flu Vaccine High-Dose for Pts 65 Years and Older IM ONE (14:00)
[2018-11-06] MEDS ORDERED: Pneumococcal Vaccine 25mcg/0.5ml IM ONE (14:00)
--- NOTE | 2018-11-06 14:00 | NUR ---
NURSE NOTES: Pt discharged home in stable condition, accompanied by cousin Jarod Wood. PT O2 sat 96-99 % on RA. Per pt, Jarod will drive him home. Pt instructed to follow up with sand mill operator in [address] Yin's orders. Pt hand delivered discharge packet with flu meds and home instructions/education/ sign and sx's to report. IV to RAC, removed, no bleeding, applied pressure and placed tape. Pt given opportunity to ask questions, pt verbalized understanding.
--- NOTE | 2018-11-06 16:05 | Discharge Summary ---
Discharge Summary Hospital Course Date of Admission Nov 02, 2018 at 17:41 Date of Discharge Admitting Diagnosis ACS HPI Nataly Archer is a 73 year old male who was admitted on Nov 02, 2018 at 17:41 for Acute Coronary Syndrome Hospital Course Last 24 Hour Vital Signs Date Time Temp Pulse Resp B/P (MAP) Pulse Ox O2 Delivery O2 Flow Rate FiO2 11/06/18 12:00 98.9 78 20 117/66 (83) 99 11/06/18 09:00 Room Air 11/06/18 08:39 77 131/74 11/06/18 07:58 98.3 77 20 131/74 (93) 99 11/06/18 07:14 60 16 Room Air 21 11/06/18 04:00 98.4 66 18 110/65 (80) 94 11/06/18 00:02 98.6 70 18 116/60 (78) 93 11/05/18 21:00 Room Air 11/05/18 21:00 98.3 68 20 130/82 (98) 95 11/05/18 20:00 69 18 Room Air 21 General: No acute distress, awake and alert HEENT: NCAT, sclera anicteric, PERRL, EOMI. Neck: Supple, no significant jugular venous distention, Lungs: Good inspiratory effort, no accessory muscle use, clear to auscultation bilaterally, no Wheeze or Rales. Heart: Regular rate and rhythm, normal S1/S2, no murmurs/gallops Abdomen: soft, nontender, nondistended. Normoactive bowel sounds. / Rectal: Refused and deferred. Extremities: No Cyanosis , clubbing or edema. Neuro: A&O x 3, Able to move all extremities Skin: warm, no rashes or lesions Psych: Normal mood and affect Discharge Discharge Disposition Patient was discharged to Home () Jaylen Lara MD Nov 06, 2018 16:05
--- NOTE | 2018-11-06 21:30 | Discharge Summary ---
DATE OF ADMISSION: 11/02/2018 DATE OF DISCHARGE: 11/06/2018 HOSPITAL COURSE: This is a 73-year-old gentleman with past medical history significant for hypertension, hypertensive heart disease, right renal cell carcinoma status post of resection, COPD, dyslipidemia, BPH, hepatitis C positive, anxiety, and depression, who was presented to the hospital complaining of chest pain. The patient was seen in my office, complained about chest discomfort, unable to take a deep breath. Subsequently, patient was advised to come to the emergency room. Shortly after initial evaluation in the emergency room, the patient was admitted to the hospital with chest pain and shortness of breath, possible due to the costochondritis. Throughout the hospital course, the patient was followed with Dr. Dariusz Yin from Cardiology and Dr. Morse, Pulmonary Critical Care. The patient had a CT angio of the chest to rule out PE, was not significant. Subsequently, the patient's status improved and is being discharged home today to be followed as outpatient in my office within one week. FINAL DIAGNOSES: 1. Chest pain, most likely secondary to costochondritis. 2. Pleuritic chest pain. 3. Chronic obstructive pulmonary disease. 4. Hypertension. 5. Hepatitis C positive. MEDICATIONS ON DISCHARGE: Continue discharge medication list. ACTIVITY: As tolerated. DIET: Cardiac diet. FOLLOW-UP: The patient was advised to follow up in my office within one week. Jaylen Lara M.D. DR: YUMIKO JOB#: [id number] CC:
--- NOTE | 2018-11-07 | General Progress Note ---
Assessment/Plan Problem List: (1) Depression ICD Codes: F32.9 - Major depressive disorder, single episode, unspecified SNOMED: 96350159 (2) Anxiety ICD Codes: F41.9 - Anxiety disorder, unspecified SNOMED: [id number] Status: stable, progressing Assessment/Plan lexapro 10mg qam remeron 7.5mg qhs ativan prn the pt was provided with ro/st Subjective Date patient seen: Nov 06, 2018 Neurologic/Psychiatric: Reports: anxiety, depressed, emotional problems Allergies: Coded Allergies: No Known Allergies (Unverified , 10/27/12) Objective Last 24 Hour Vital Signs Date Time Temp Pulse Resp B/P (MAP) Pulse Ox O2 Delivery O2 Flow Rate FiO2 11/06/18 12:00 98.9 78 20 117/66 (83) 99 11/06/18 09:00 Room Air 11/06/18 08:39 77 131/74 11/06/18 07:58 98.3 77 20 131/74 (93) 99 11/06/18 07:14 60 16 Room Air 21 11/06/18 04:00 98.4 66 18 110/65 (80) 94 11/06/18 00:02 98.6 70 18 116/60 (78) 93 Intake and Output 11/06/18 11/07/18 19:00 07:00 Intake Total 236 ml Balance 236 ml Intake Oral 236 ml Laboratory Tests 11/06/18 05:45: White Blood Count 4.3L, Red Blood Count 4.42L, Hemoglobin 14.0L, Hematocrit 41.3L, Mean Corpuscular Volume 94, Mean Corpuscular Hemoglobin 31.6H, Mean Corpuscular Hemoglobin Concent 33.7, Red Cell Distribution Width 12.0, Platelet Count 148L, Mean Platelet Volume 8.8, Neutrophils (%) (Auto) 55.0, Lymphocytes ( %) (Auto) 33.3, Monocytes (%) (Auto) 7.6, Eosinophils (%) (Auto) 2.1, Basophils (%) (Auto) 2.0, Sodium Level 143, Potassium Level 4.8, Chloride Level 109H, Carbon Dioxide Level 25, Anion Gap 9, Blood Urea Nitrogen 22H, Creatinine 1.1, Estimat Glomerular Filtration Rate , Glucose Level 113H, Calcium Level 9.4 Height (Feet): 5 Height (Inches): 8.00 Weight (Pounds): 198 General Appearance: alert, moderate distress Neurologic: oriented x 3, responsive, depressed affect Angelika Ley MD Nov 07, 2018 00:00
== END 2018-11-06 13:15 | disposition home or self-care (01) | DRG 206 ==
LOC: EMR 15:25 → 3E 17:41 → EDBEDREQSVC 17:48 → EDBEDREQ 17:50
DX: M94.0 Chondrocostal junction syndrome [Tietze] (principal); E11.8 Type 2 diabetes mellitus with unspecified complications; J44.9 Chronic obstructive pulmonary disease, unspecified; I11.9 Hypertensive heart disease without heart failure; R07.81 Pleurodynia; N40.0 Benign prostatic hyperplasia without lower urinary tract symptoms; Z86.19 Personal history of other infectious and parasitic diseases; Z87.891 Personal history of nicotine dependence; Z86.018 Personal history of other benign neoplasm; F41.9 Anxiety disorder, unspecified; F32.9 Major depressive disorder, single episode, unspecified
CPT/HCPCS: 36415; 71045; 71275; 72141; 72146; 80048; 80053; 80061; 82550; 82553; 83735; 83880; 84100; 84443; 84484; 84550; 85025; 85379; 85610; 85651; 85730; 86140; 90732; 93005; 93306; 94640; 94664; 96374; 96376; 99285; J7620

== ENCOUNTER 2018-11-18 10:24 | Inpatient (IN) | payer MEDICARE, MEDICAID ==
[~2018-11-18] VITALS: Ht 172.7 cm; Wt 86.3 kg
--- NOTE | 2018-11-18 10:46 | NUR ---
ED Nurse Note: Pt came in from home due to SOB since last discharge from [facility] and dark red blood in urine since this morning. SAT 100% RA, labor breathing noted. Pt was discharged from [facility] on 11/06/18 for ACS. AOx4, VSS kash. Will cont to monitor.
--- NOTE | 2018-11-18 10:50 | NUR ---
ED Nurse Note: Pt also c/o sharp L sided chest dicomfort 5/10 intermittent kash.
[2018-11-18 10:51] VITALS: BP 124/77
[2018-11-18] MEDS ORDERED: Albuterol/Ipratropium 3ml neb HHN ONE (11:15)
[2018-11-18] MEDS ORDERED: Isovue-300 100ml vial INJ PRN (11:15)
[2018-11-18] MEDS ORDERED: Morphine Sulfate 4mg/ml Inj (IV USE ONLY) IVP ONE (11:15)
[2018-11-18 11:23] LABS: BASOPHILS % (AUTO) 0.9 % (0.0-2.0); EOSINOPHILS % (AUTO) 0.3 % (0.0-3.0); HEMATOCRIT 45.6 % (42.0-52.0); HEMOGLOBIN 15.5 G/DL (14.2-18.0); MEAN CORPUSCULAR VOLUME 92 FL (80-99); MONOCYTES % (AUTO) 7.5 % (1.0-10.0); NEUTROPHILS % (AUTO) 77.3 % (45.0-75.0); PLATELET COUNT 220 K/UL (150-450); RED BLOOD COUNT 4.96 M/UL (4.70-6.10); WHITE BLOOD COUNT 14.4 K/UL (4.8-10.8)
[2018-11-18 11:43] LABS: ANION GAP 9 mmol/L (5-15); BLOOD UREA NITROGEN 19 mg/dL (7-18); CALCIUM 9.4 MG/DL (8.5-10.1); CARBON DIOXIDE 27 MMOL/L (21-32); CHLORIDE 103 MMOL/L (98-107); CREATININE 1.5 MG/DL (0.55-1.30); POTASSIUM 4.5 MMOL/L (3.5-5.1); SODIUM 139 MMOL/L (136-145)
--- NOTE | 2018-11-18 11:43 | NUR ---
ED Nurse Note: RT notified about breathing tx.
[2018-11-18 11:54] LABS: ALANINE AMINOTRANSFERASE 29 U/L (12-78); ALBUMIN 3.9 G/DL (3.4-5.0); ALBUMIN/GLOBULIN RATIO 0.9 (1.0-2.7); ALKALINE PHOSPHATASE 76 U/L (46-116); ASPARTATE AMINO TRANSFERASE 21 U/L (15-37); BILIRUBIN,TOTAL 0.9 MG/DL (0.2-1.0)
[2018-11-18] MEDS ORDERED: cefTRIAXone 1 GM in NS 55 ML IVPB ONE (13:00)
--- NOTE | 2018-11-18 13:02 | Emergency Room Report ---
History of Present Illness General Chief Complaint: Dyspnea/Respdistress Source: Patient, Medical Record Present Illness HPI Patient is a 73-year-old male who presented after increased chest discomfort. He reports having increased cough and difficulty breathing. Patient reports having some recent onset of hematuria. Reports having some increased right- sided flank pain and testicular pain. Pain was sharp in nature. Patient had previously been seen in the emergency department after having a chest discomfort in the past.Patient reports having subjective fever and body aches. 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 Hx Dizziness: Yes - WHEN CHANGING FROM SITTING TO STANDING Hx Headaches: Yes - OCCASIONALLY, MORE AFTER FACIAL SWELLING Hx Weakness: Yes - generalized Review of Systems All Other Systems: negative except mentioned in HPI Physical Exam Vital Signs Date Time Temp Pulse Resp B/P (MAP) Pulse Ox O2 Delivery O2 Flow Rate FiO2 11/18/18 10:27 97.5 90 18 103/56 95 Room Air Sp02 EP Interpretation: reviewed, normal General Appearance: normal inspection, well appearing, no apparent distress, alert, GCS 15 Head: atraumatic ENT: normal ENT inspection, hearing grossly normal, normal voice Neck: normal inspection, full range of motion, supple, no bony tend Respiratory: normal inspection, lungs clear, normal breath sounds, no respiratory distress, no retraction, no wheezing Cardiovascular #1: regular rate, rhythm, no edema Gastrointestinal: normal inspection, normal bowel sounds, non tender, soft, no guarding, no hernia Genitourinary: no CVA tenderness Musculoskeletal: normal inspection, back normal, normal range of motion Neurologic: normal inspection, alert, oriented x3, responsive, assistant film editor III-XII nml as tested, speech normal Psychiatric: normal inspection, judgement/insight normal, mood/affect normal Skin: normal inspection, normal color, no rash Medical Decision Making Diagnostic Impression: Primary Impression: Chest pain of uncertain etiology Additional Impressions: Urinary tract infection Renal cell carcinoma ER Course Presented for chest pain. Differential differential diagnosis included but was not limited to acute coronary syndrome, pulmonary embolism, pneumonia, aortic dissection, shingles, pneumothorax, aortic dissection, esophageal rupture, pericarditis. Because of complexity of patient's case laboratory testing and imaging studies were ordered. Patient was noted to have some hematuria as well as evidence of urinary infection. He was given IV antibiotics. Patient was given medications for pain. Patient does not appear to have evidence of acute myocardial injury. Laboratory Tests Test 11/19/18 06:47 11/20/18 06:30 11/20/18 12:00 White Blood Count 14.2 K/UL (4.8-10.8) H 8.2 K/UL (4.8-10.8) Red Blood Count 4.45 M/UL (4.70-6.10) L 4.60 M/UL (4.70-6.10) L Hemoglobin 14.1 G/DL (14.2-18.0) L 14.5 G/DL (14.2-18.0) Hematocrit 41.6 % (42.0-52.0) L 43.4 % (42.0-52.0) Mean Corpuscular Volume 94 FL (80-99) 94 FL (80-99) Mean Corpuscular Hemoglobin 31.7 PG (27.0-31.0) H 31.4 PG (27.0-31.0) H Mean Corpuscular Hemoglobin Concent 33.9 G/DL (32.0-36.0) 33.4 G/DL (32.0-36.0) Red Cell Distribution Width 12.0 % (11.6-14.8) 12.2 % (11.6-14.8) Platelet Count 201 K/UL (150-450) 218 K/UL (150-450) Mean Platelet Volume 8.0 FL (6.5-10.1) 8.0 FL (6.5-10.1) Neutrophils (%) (Auto) 74.0 % (45.0-75.0) 64.7 % (45.0-75.0) Lymphocytes (%) (Auto) 15.7 % (20.0-45.0) L 25.1 % (20.0-45.0) Monocytes (%) (Auto) 8.4 % (1.0-10.0) 7.9 % (1.0-10.0) Eosinophils (%) (Auto) 0.6 % (0.0-3.0) 1.6 % (0.0-3.0) Basophils (%) (Auto) 1.2 % (0.0-2.0) 0.7 % (0.0-2.0) Sodium Level 138 MMOL/L (136-145) 142 MMOL/L (136-145) Potassium Level 4.0 MMOL/L (3.5-5.1) 4.6 MMOL/L (3.5-5.1) Chloride Level 104 MMOL/L (98-107) 106 MMOL/L (98-107) Carbon Dioxide Level 24 MMOL/L (21-32) 25 MMOL/L (21-32) Anion Gap 10 mmol/L (5-15) 11 mmol/L (5-15) Blood Urea Nitrogen 17 mg/dL (7-18) 16 mg/dL (7-18) Creatinine 1.4 MG/DL (0.55-1.30) H 1.3 MG/DL (0.55-1.30) Estimate Glomerular Filtration Rate mL/min (>60) mL/min (>60) Glucose Level 142 MG/DL (74-106) H 124 MG/DL (74-106) H Calcium Level 8.8 MG/DL (8.5-10.1) 8.9 MG/DL (8.5-10.1) Total Bilirubin 0.8 MG/DL (0.2-1.0) Aspartate Amino Transferase (AST) 24 U/L (15-37) Alanine Aminotransferase (ALT) 42 U/L (12-78) Alkaline Phosphatase 72 U/L (46-116) Total Protein 7.2 G/DL (6.4-8.2) Albumin 3.3 G/DL (3.4-5.0) L Globulin 3.9 g/dL Albumin/Globulin Ratio 0.8 (1.0-2.7) L Triglycerides Level 66 MG/DL (30-150) Cholesterol Level 136 MG/DL (< 200) LDL Cholesterol 76 mg/dL (<100) HDL Cholesterol 47 MG/DL (40-60) Cholesterol/HDL Ratio 2.9 (3.3-4.4) L Thyroid Stimulating Hormone (TSH) 0.589 uiU/mL (0.358-3.740) Troponin I 0.000 ng/mL (0.000-0.056) Urine Color Pending Urine Appearance Pending Urine pH Pending Urine Specific [place] Pending Urine Protein Pending Urine Glucose (UA) Pending Urine Ketones Pending Urine Blood Pending Urine Nitrite Pending Urine Bilirubin Pending Urine Urobilinogen Pending Urine Leukocyte Esterase Pending Urine RBC Pending Urine WBC Pending Urine Squamous Epithelial Cells Pending Urine Bacteria Pending EKG Diagnostic Results Rate: normal Rhythm: NSR ST Segments: no acute changes Last Vital Signs Date Time Temp Pulse Resp B/P (MAP) Pulse Ox O2 Delivery O2 Flow Rate FiO2 11/18/18 11:45 97.5 11/18/18 10:51 82 22 Room Air 11/18/18 10:51 124/77 97 Status: unchanged Disposition: ADMITTED INPATIENT Condition: Stable Referrals: NON PHYSICIAN (PCP) Bry Lund MD Nov 18, 2018 13:02
[2018-11-18 13:18] LABS: APPEARANCE,URINE SLIGHTLY CLOUDY; BILIRUBIN, URINE NEGATIVE (NEGATIVE); GLUCOSE, URINE (UA) NEGATIVE (NEGATIVE); KETONES,URINE 1+ (NEGATIVE); LEUKOCYTE ESTERASE ,URINE 3+ (NEGATIVE); NITRITE,URINE NEGATIVE (NEGATIVE); PH,URINE 6.5 (4.5-8.0); PROTEIN,URINE 3+ (NEGATIVE); UROBILINOGEN,URINE 4 MG/DL (0.0-1.0)
[2018-11-18 13:25] VITALS: BP 121/74
[2018-11-18 13:30] LABS: COLOR,URINE YELLOW
--- NOTE | 2018-11-18 13:51 | Diagnostic Imaging Report ---
Indication: Hematuria and lower back pain Technique: Spiral acquisitions obtained through the abdomen and pelvis. No oral or IV contrast utilized, per urinary stone protocol. Multiplanar reconstructions were generated. Total dose length product 935.65 mGycm. CTDIvol(s) 16.14 mGy. Dose reduction achieved using automated exposure control Comparison: 05/18/2018 Findings: Again noted is dense crinkled material surrounding the lateral periphery of the lower pole of the left kidney. There appears to be some associated left renal volume loss, which is unchanged. No renal or ureteral calculi, hydronephrosis, or hydroureter demonstrated. Lack of IV contrast limits assessment of the renal parenchyma. No gross renal parenchymal mass or cyst demonstrated. Surgical clips are seen in the left periaortic region, as previously. The prostate is markedly enlarged, as previously, measuring 6.5 cm transverse by 6.5 cm AP. There is bladder wall thickening. There is slight stranding of the perivesical fat. Although the bladder wall thickening appears similar to prior exam, the perivesical fat stranding is increased Lack of IV contrast limits assessment of the other solid organs. The liver, gallbladder, bile ducts, pancreas, spleen, adrenals are all unremarkable. No retroperitoneal or mesenteric mass or adenopathy. No pelvic mass or adenopathy. The appendix is not definitely demonstrated, but no findings to suggest acute appendicitis are evident. There is colonic diverticulosis. No evidence of diverticulitis. There is equivocal mild wall thickening of the rectum, if real not definitely evident previously. There is a tiny right inguinal hernia which contains only fat. There is also a tiny umbilical hernia which contains only fat. No small bowel distention. No free or loculated intraperitoneal gas or fluid is evident. The distal esophagus, stomach, duodenum are unremarkable. The included lung bases demonstrate scarring which appears similar to the previous study, right greater than left, as well as some posterior dependent atelectatic changes. The bones demonstrate degenerative spondylosis changes. Impression: Bladder wall thickening and perivesical fat stranding, possibly on the basis of chronic bladder outlet obstruction but concerning for cystitis Massive prostatomegaly, also previously demonstrated Evidence of prior left partial nephrectomy and likely lymph node dissection No evidence of obstructive uropathy or urinary stone disease Is equivocal mild rectal wall thickening, could indicate proctitis Basilar pulmonary parenchymal scarring, also evident previously. Dependent atelectatic changes Colonic diverticulosis Other findings as noted, including mild degenerative spondylosis changes, fat-containing right inguinal and umbilical hernias The CT scanner at [facility] is accredited by the [employer] and the scans are performed using protocols designed to limit radiation exposure to as low as reasonably achievable to attain images of sufficient resolution adequate for diagnostic evaluation.
[2018-11-18 15:20] VITALS: BP 132/78
--- NOTE | 2018-11-18 15:28 | NUR ---
ED Nurse Note: Report given to JOHN PAUL Joyner at ext [phone]. Pt to be transfered to room 234-1 per protocol with all belongings.
--- NOTE | 2018-11-18 15:29 | NUR ---
NURSE NOTES: Received report from JOHN PAUL Rose. Patient to be transported to the floor momentarily.
[2018-11-18] MEDS ORDERED: Miralax 17gm pkt ORAL PRN (15:30)
[2018-11-18] MEDS ORDERED: Zolpidem 5mg tab ORAL PRN (15:30)
[2018-11-18] MEDS ORDERED: Mylanta II UD 30ml ORAL PRN (15:30)
[2018-11-18] MEDS ORDERED: oxyCODONE 15mg IR tab ORAL PRN (15:30)
[2018-11-18] MEDS ORDERED: LORazepam Inj 2mg/ml 1ml IV PRN (15:30)
[2018-11-18] MEDS ORDERED: Promethazine/Codeine 5ml UD ORAL PRN (15:30)
[2018-11-18] MEDS ORDERED: Dextrose 50% 25ml Syringe IV PRN (15:45)
--- NOTE | 2018-11-18 15:45 | NUR ---
NURSE NOTES: Received patient from JOHN PAUL Rose. Patient ambulatory from [facility] to bed at this time. Patient has steady gait at this time. Patient is alert and oriented at this time. Patient is sinus rhythm on the monitor at this time. Patient is on room air with saturation of 95%. Patient VS stable at this time. Patient's blood pressure is 138/72, HR 84, RR 23, and temp 98.2. Patient has no appetite at this time but did eat a tuna sandwich in ER. Patient is complaining of pain in the left chest and side. Patient reports that this pain is not heart related. 12 lead EKG performed in ER showing sinus rhythm. Patient skin intact at this time. Patient has a left AC 18G PIV that is patent and saline locked at this time. Patient bed in low position with bed alarm on and call light in reach at this time. Will give patient pain medication when possible.
[2018-11-18 16:00] VITALS: BP 138/72
[2018-11-18] MEDS: Morphine Sulfate 2mg/ml Inj(IV/IM USE ONLY) IVP PRN (16:33)
[2018-11-18] MEDS ORDERED: Aminocaproic Acid Inj 5,000 MG in NS 110 ML IV SCH (17:00)
--- NOTE | 2018-11-18 18:35 | NUR ---
HAND-OFF: Report given to JOHN PAUL Gomez. Patient VS stable at this time. Patient still experiencing pain at this time. Endorsed to follow up.
--- NOTE | 2018-11-18 18:35 | NUR ---
NURSE NOTES: Received patient and report from JOHN PAUL Joyner. Patient was transferred from IVONE Rm 234-1 to TELE Rm 214-2. Patient is alert and oriented X4, denies any pain at this time. Skin is intact. Noted IV on LAC 18G, intact and patent. Patient ambulates. Patients belongings and valuables accounted for and roxie by both receiving and transferring nurse's, Patient has $113.00 with him, refused to keep it in the hospital safe and noted on the belonging inventory list. Oriented patient to room, surrounding and staff. Bed is in lowest position, brakes engaged for safety. Call light is within reach. Will continue with the plan of care.
--- NOTE | 2018-11-18 18:58 | NUR ---
CASE MANAGEMENT: REVIEW 73/M PRESENTED TO ED FROM HOME CC: CHEST PAIN . SOB [id number] SI: HEMATURIA . BENIGN KIDNEY CANCER T 97.5 HR 82 RR 22 BP 103/56 SAT 95% ROOM AIR WBC 14.4 BUN 19 CR 1.5 UA: PROTEIN 3+ KETONE 1+ BLOOD 5+ UROBILI 4 LEUCOCYTE 3+ RBC 30-40 WBC 40-60AT IS: MORPHINE IV X1 ALBUTEROL HHN X1 CEFTRIAXONE IV X1 PATIENT ADMITTED TO TELEMETRY UNIT 11/18/2018 DCP: PATIENT IS FROM HOME
--- NOTE | 2018-11-18 19:32 | NUR ---
HAND-OFF: Report given to Livia COKER. Patient is in stable condition.
--- NOTE | 2018-11-18 19:50 | NUR ---
NURSE NOTES: Received report from JOHN PAUL Gomez. Pt is lying comfortably in semi fowlers position. IV site is patent and in place. Bed is in lowest position with call light within reach and side rails up. Will continue to monitor.
[2018-11-18 20:00] VITALS: BP 119/67
--- NOTE | 2018-11-18 20:51 | Cardiology Progress Note ---
Assessment/Plan Assessment/Plan [id number] Objective Last 24 Hour Vital Signs Date Time Temp Pulse Resp B/P (MAP) Pulse Ox O2 Delivery O2 Flow Rate FiO2 11/18/18 16:14 Room Air 11/18/18 16:00 98.2 84 138/72 (94) 11/18/18 15:28 97.5 93 18 132/78 99 Room Air 21 11/18/18 15:20 97.5 93 18 132/78 99 Room Air 21 11/18/18 13:25 97.5 84 16 121/74 99 Room Air 21 11/18/18 12:24 90 16 98 21 11/18/18 12:20 80 22 Room Air 11/18/18 12:20 21 11/18/18 12:20 80 22 96 Room Air 21 11/18/18 11:45 97.5 11/18/18 10:51 82 22 Room Air 11/18/18 10:51 97.5 82 18 124/77 97 Room Air 11/18/18 10:27 97.5 90 18 103/56 95 Room Air Laboratory Tests Test 11/18/18 11:10 11/18/18 13:00 White Blood Count 14.4 K/UL (4.8-10.8) H Red Blood Count 4.96 M/UL (4.70-6.10) Hemoglobin 15.5 G/DL (14.2-18.0) Hematocrit 45.6 % (42.0-52.0) Mean Corpuscular Volume 92 FL (80-99) Mean Corpuscular Hemoglobin 31.3 PG (27.0-31.0) H Mean Corpuscular Hemoglobin Concent 34.0 G/DL (32.0-36.0) Red Cell Distribution Width 12.0 % (11.6-14.8) Platelet Count 220 K/UL (150-450) Mean Platelet Volume 8.9 FL (6.5-10.1) Neutrophils (%) (Auto) 77.3 % (45.0-75.0) H Lymphocytes (%) (Auto) 14.0 % (20.0-45.0) L Monocytes (%) (Auto) 7.5 % (1.0-10.0) Eosinophils (%) (Auto) 0.3 % (0.0-3.0) Basophils (%) (Auto) 0.9 % (0.0-2.0) D-Dimer 0.40 mg/L FEU (0.00-0.49) Sodium Level 139 MMOL/L (136-145) Potassium Level 4.5 MMOL/L (3.5-5.1) Chloride Level 103 MMOL/L (98-107) Carbon Dioxide Level 27 MMOL/L (21-32) Anion Gap 9 mmol/L (5-15) Blood Urea Nitrogen 19 mg/dL (7-18) H Creatinine 1.5 MG/DL (0.55-1.30) H Estimat Glomerular Filtration Rate mL/min (>60) Glucose Level 130 MG/DL (74-106) H Calcium Level 9.4 MG/DL (8.5-10.1) Total Bilirubin 0.9 MG/DL (0.2-1.0) Aspartate Amino Transf (AST/SGOT) 21 U/L (15-37) Alanine Aminotransferase (ALT/SGPT) 29 U/L (12-78) Alkaline Phosphatase 76 U/L (46-116) C-Reactive Protein, Quantitative 9.9 mg/dL (0.00-0.90) H Pro-B-Type Natriuretic Peptide 32 pg/mL (0-125) Total Protein 8.1 G/DL (6.4-8.2) Albumin 3.9 G/DL (3.4-5.0) Globulin 4.2 g/dL Albumin/Globulin Ratio 0.9 (1.0-2.7) L Urine Color Yellow Urine Appearance Slightly cloudy Urine pH 6.5 (4.5-8.0) Urine Specific [place] 1.010 (1.005-1.035) Urine Protein 3+ (NEGATIVE) H Urine Glucose (UA) Negative (NEGATIVE) Urine Ketones 1+ (NEGATIVE) H Urine Blood 5+ (NEGATIVE) H Urine Nitrite Negative (NEGATIVE) Urine Bilirubin Negative (NEGATIVE) Urine Urobilinogen 4 MG/DL (0.0-1.0) H Urine Leukocyte Esterase 3+ (NEGATIVE) H Urine RBC 30-40 /HPF (0 - 0) H Urine WBC 40-60 /HPF (0 - 0) H Urine Squamous Epithelial Cells Occasional /LPF Urine Bacteria Occasional /HPF (NONE) Dariusz Yin MD Nov 18, 2018 20:51
[2018-11-18] MEDS: Tamsulosin 0.4mg cap ORAL SCH (20:58)
[2018-11-19] VITALS (7 sets, daily range): BP systolic 99–130; BP diastolic 60–76
--- NOTE | 2018-11-19 04:29 | Consultation ---
DATE OF CONSULTATION: 11/18/2018 CARDIAC CONSULTATION CONSULTING PHYSICIAN: Dariusz Yin M.D. REFERRING PHYSICIAN: 1. Jaylen Lara M.D. 2. Susy Morse M.D. REASON FOR REFERRAL: Chronic chest pain. HISTORY OF PRESENT ILLNESS: This is a 73-year-old female who presented to the hospital apparently after increased chest discomfort. He has had apparently coughing and difficulty breathing when he presented to the emergency room. However, on my questioning, he apparently had some discomfort on urination and bloody urine and fevers and chills at this point and some right groin pain, sharp in nature. He has chest discomfort and shortness of breath that is apparently chronic. She has evaluation on prior occasions here. PAST MEDICAL HISTORY: Positive for recent hospitalization and discharge here from [facility] during the last hospitalization and had chest pain felt to be secondary to constant arthritis and COPD, hypertension, and hepatitis C positive. He apparently had some blood clots in his leg for which he was on anticoagulation and he has a history of prior prostatic enlargement. He has had chronic chest pains, felt to be musculoskeletal in origin. He even had undergone myocardial perfusion imaging that was nonischemic. ALLERGIES: He is not allergic to any medications. SOCIAL HISTORY: He used to smoke years ago. No alcohol. No drugs. REVIEW OF SYSTEMS: GASTROINTESTINAL: Positive for nausea. No vomiting. No bloody or black stools. She is constipated. GENITOURINARY: As mentioned in HPI. Burning on urination and blood in the urine. PULMONARY: He has coughing and shortness of breath. CONSTITUTIONAL: He has had some fevers and some chills. NEUROLOGICAL: He has some headaches. PHYSICAL EXAMINATION: GENERAL: Shows to be elderly gentleman, in no respiratory distress. On my arrival, he was talking on the phone without any problems at all and even joking with whoever is on the phone. After my evaluation, the patient started complaining of headache after coughing. NECK: Supple. No jugular venous distention. LUNGS: Clear. CARDIAC: Regular rate and rhythm. No heaves and no thrills noted. ABDOMEN: Soft and nontender. Positive bowel sounds. EXTREMITIES: There is no edema. NEUROLOGICAL: He is awake, alert, and responsive, in no apparent distress. LABORATORY VALUES: Sodium 139, potassium 4.5, chloride 102, bicarbonate 27, BUN of 19, creatinine 1.5, glucose of 130, and calcium is 9.4. CRP of 9.9 and his white count of 14.4, hemoglobin of 15.5, and platelet count of 220,000. His D-dimer was 0.4. His urinalysis shows 30 to 40 rbcs, 40 to 60 wbcs, 3+ leukocyte esterase, 4 urobilinogen, 5+ blood, and 3+ glucose. Imaging performed includes a CT of the abdomen and pelvis that showed bladder wall thickening, perivesicular fat stranding, possible chronic bladder outlet obstruction plus concerning for cystitis, massive prostatomegaly, left partial nephrectomy, and likely lymph node resection. No evidence of obstructive uropathy or rectal wall thickening that may indicate proctitis, with parenchymal scarring, history of colonic diverticula, in fact containing right inguinal hernia and umbilical hernia as well. Tele, sinus rhythm. His duplex study of lower extremities are negative. On preliminary report, EKG shows sinus rhythm, no ST or T-wave abnormalities. ASSESSMENT AND PLAN: 1. Chronic recurrent chest pain, possibly musculoskeletal in origin. 2. Urinary tract infection. 3. Hematuria secondary to above. 4. History of hepatitis C, treated. 5. COPD history. Dr. Lara and Dr. Morse, this patient was seen in cardiac consultation. The patient's cardiac enzymes are negative. He has had prior workup of his chest pain on prior occasions. He did present because of chest pains. A set of cardiac enzymes will be ordered for tomorrow morning. I doubt again as the last time ischemic, I suspect musculoskeletal pain. The patient is being treated for possible urinary tract infection and a venous duplex study is already negative. D-dimer was not significantly elevated. Dariusz Yin M.D. DR: JUAN LUIS JOB#: [id number] CC:
--- NOTE | 2018-11-19 07:01 | NUR ---
HAND-OFF: Report given to JOHN PAUL Gomez. Pt is in stable conditon; plan of care endorsed.
[2018-11-19 07:23] LABS: BASOPHILS % (AUTO) 1.2 % (0.0-2.0); EOSINOPHILS % (AUTO) 0.6 % (0.0-3.0); HEMATOCRIT 41.6 % (42.0-52.0); HEMOGLOBIN 14.1 G/DL (14.2-18.0); LYMPHOCYTES % (AUTO) 15.7 % (20.0-45.0); MEAN CORPUSCULAR VOLUME 94 FL (80-99); MONOCYTES % (AUTO) 8.4 % (1.0-10.0); PLATELET COUNT 201 K/UL (150-450); RED BLOOD COUNT 4.45 M/UL (4.70-6.10); WHITE BLOOD COUNT 14.2 K/UL (4.8-10.8)
--- NOTE | 2018-11-19 07:25 | NUR ---
NURSE NOTES: Received patient from Livia COKER. Denies any pain, no s/s of acute distress noted. IV is intact, behavioral analyst in place. Bed is in lowest position, brakes engaged for safety. Call light is within reach. Will continue with the plan of care.
[2018-11-19 07:45] LABS: ALANINE AMINOTRANSFERASE 42 U/L (12-78); ALBUMIN 3.3 G/DL (3.4-5.0); ALBUMIN/GLOBULIN RATIO 0.8 (1.0-2.7); ALKALINE PHOSPHATASE 72 U/L (46-116); ANION GAP 10 mmol/L (5-15); ASPARTATE AMINO TRANSFERASE 24 U/L (15-37); BILIRUBIN,TOTAL 0.8 MG/DL (0.2-1.0); BLOOD UREA NITROGEN 17 mg/dL (7-18); CALCIUM 8.8 MG/DL (8.5-10.1); CARBON DIOXIDE 24 MMOL/L (21-32); CHLORIDE 104 MMOL/L (98-107); CHOLESTEROL 136 MG/DL (< 200); CREATININE 1.4 MG/DL (0.55-1.30); HDL CHOLESTEROL 47 MG/DL (40-60); SODIUM 138 MMOL/L (136-145); TRIGLYCERIDES 66 MG/DL (30-150)
[2018-11-19] MEDS: Morphine Sulfate 2mg/ml Inj(IV/IM USE ONLY) IVP PRN ×2 (08:16→17:25)
--- NOTE | 2018-11-19 11:45 | Consultation ---
History of Present Illness General Date patient seen: Nov 19, 2018 Chief Complaint: Dyspnea/Respdistress Present Illness HPI 73-year-old male with hx of DM, HTN, COPD, [place] [facility] [place] to rule out PE presented again to ED for evaluation for chest pain and hematuria. The pain is left-sided, sharp, 8 out of 10, worse with positional change. No other aggravating relieving factors. Denies any other associated symptoms. Pt is admitted to telemetry for further w/u. Allergies: Coded Allergies: No Known Allergies (Unverified , 10/27/12) Medication History Scheduled Albuterol Sulfate* (Albuterol Sulfate Mdi*), 2 PUFF INH Q4H Amlodipine Besylate* (Amlodipine Besylate*), 5 MG ORAL DAILY, (Reported) Cephalexin* (Keflex*), 500 MG ORAL EVERY 6 HOURS Cholecalciferol (Vitamin D3)* (Vitamin D*), 2,000 UNITS ORAL DAILY, (Reported) Colchicine (Colcrys), 0.6 MG ORAL DAILY Ibuprofen* (Motrin*), 800 MG ORAL Q6H Pantoprazole* (Protonix*), 40 MG ORAL DAILY Phenazopyridine Hcl* (Pyridium*), 100 MG ORAL THREE TIMES A DAY Rivaroxaban (Xarelto*), Unknown Dose ORAL DAILY, (Reported) Simvastatin (Zocor), 40 MG PO QHS, (Reported) Tamsulosin HCl (Flomax), 0.4 MG PO QHS, (Reported) Scheduled PRN Oxycodone Hcl* (Roxicodone*), 30 MG ORAL Q6H PRN for For Pain, (Reported) Tizanidine Hcl* (Zanaflex*), Unknown Dose ORAL THREE TIMES A DAY PRN for For Pain, (Reported) Patient History Healthcare decision maker N Resuscitation status Full Code Advanced Directive on File Past Medical/Surgical History Past Medical/Surgical History: (1) Hepatitis C (2) Depression (3) Hypercholesteremia (4) COPD (chronic obstructive pulmonary disease) (5) Renal cell carcinoma (6) Deep vein thrombosis (DVT) of left lower extremity (7) HTN (hypertension) (8) BPH (benign prostatic hypertrophy) (9) Hypertensive hypertrophic cardiomyopathy, without heart failure (10) DVT of leg (deep venous thrombosis) Review of Systems All Other Systems: negative except mentioned in HPI Physical Exam General Appearance: WD/WN, no apparent distress Lines, tubes and drains: peripheral HEENT: normocephalic, atraumatic, anicteric Neck: non-tender, normal alignment Respiratory/Chest: chest wall non-tender, lungs clear Cardiovascular/Chest: normal peripheral pulses, normal rate Abdomen: normal bowel sounds, non tender Genitourinary/Rectal: normal genital exam, normal rectal exam Extremities: normal range of motion, non-tender Skin Exam: normal pigmentation Last 24 Hour Vital Signs Date Time Temp Pulse Resp B/P (MAP) Pulse Ox O2 Delivery O2 Flow Rate FiO2 11/19/18 09:51 79 130/70 11/19/18 09:00 Room Air 11/19/18 08:00 97.4 76 16 130/70 (90) 96 11/19/18 08:00 78 11/19/18 04:00 98.0 79 17 99/60 (73) 92 11/19/18 03:20 82 11/19/18 00:00 98.8 82 16 110/65 (80) 94 11/18/18 23:24 80 11/18/18 21:00 Room Air 11/18/18 20:00 98.2 83 16 119/67 (84) 96 11/18/18 20:00 87 11/18/18 16:14 Room Air 11/18/18 16:00 98.2 84 138/72 (94) 11/18/18 15:28 97.5 93 18 132/78 99 Room Air 21 11/18/18 15:20 97.5 93 18 132/78 99 Room Air 21 11/18/18 13:25 97.5 84 16 121/74 99 Room Air 21 11/18/18 12:24 90 16 98 21 11/18/18 12:20 80 22 Room Air 11/18/18 12:20 21 11/18/18 12:20 80 22 96 Room Air 21 11/18/18 11:45 97.5 Intake and Output 11/18/18 11/19/18 19:00 07:00 Intake Total 415 ml Balance 415 ml Intake Oral 360 ml IV Total 55 ml # Voids 1 3 Laboratory Tests Test 11/18/18 13:00 11/19/18 06:47 Urine Color Yellow Urine Appearance Slightly cloudy Urine pH 6.5 (4.5-8.0) Urine Specific [place] 1.010 (1.005-1.035) Urine Protein 3+ (NEGATIVE) H Urine Glucose (UA) Negative (NEGATIVE) Urine Ketones 1+ (NEGATIVE) H Urine Blood 5+ (NEGATIVE) H Urine Nitrite Negative (NEGATIVE) Urine Bilirubin Negative (NEGATIVE) Urine Urobilinogen 4 MG/DL (0.0-1.0) H Urine Leukocyte Esterase 3+ (NEGATIVE) H Urine RBC 30-40 /HPF (0 - 0) H Urine WBC 40-60 /HPF (0 - 0) H Urine Squamous Epithelial Cells Occasional /LPF Urine Bacteria Occasional /HPF (NONE) White Blood Count 14.2 K/UL (4.8-10.8) H Red Blood Count 4.45 M/UL (4.70-6.10) L Hemoglobin 14.1 G/DL (14.2-18.0) L Hematocrit 41.6 % (42.0-52.0) L Mean Corpuscular Volume 94 FL (80-99) Mean Corpuscular Hemoglobin 31.7 PG (27.0-31.0) H Mean Corpuscular Hemoglobin Concent 33.9 G/DL (32.0-36.0) Red Cell Distribution Width 12.0 % (11.6-14.8) Platelet Count 201 K/UL (150-450) Mean Platelet Volume 8.0 FL (6.5-10.1) Neutrophils (%) (Auto) 74.0 % (45.0-75.0) Lymphocytes (%) (Auto) 15.7 % (20.0-45.0) L Monocytes (%) (Auto) 8.4 % (1.0-10.0) Eosinophils (%) (Auto) 0.6 % (0.0-3.0) Basophils (%) (Auto) 1.2 % (0.0-2.0) Sodium Level 138 MMOL/L (136-145) Potassium Level 4.0 MMOL/L (3.5-5.1) Chloride Level 104 MMOL/L (98-107) Carbon Dioxide Level 24 MMOL/L (21-32) Anion Gap 10 mmol/L (5-15) Blood Urea Nitrogen 17 mg/dL (7-18) Creatinine 1.4 MG/DL (0.55-1.30) H Estimat Glomerular Filtration Rate mL/min (>60) Glucose Level 142 MG/DL (74-106) H Calcium Level 8.8 MG/DL (8.5-10.1) Total Bilirubin 0.8 MG/DL (0.2-1.0) Aspartate Amino Transf (AST/SGOT) 24 U/L (15-37) Alanine Aminotransferase (ALT/SGPT) 42 U/L (12-78) Alkaline Phosphatase 72 U/L (46-116) Total Protein 7.2 G/DL (6.4-8.2) Albumin 3.3 G/DL (3.4-5.0) L Globulin 3.9 g/dL Albumin/Globulin Ratio 0.8 (1.0-2.7) L Triglycerides Level 66 MG/DL (30-150) Cholesterol Level 136 MG/DL (< 200) LDL Cholesterol 76 mg/dL (<100) HDL Cholesterol 47 MG/DL (40-60) Cholesterol/HDL Ratio 2.9 (3.3-4.4) L Thyroid Stimulating Hormone (TSH) 0.589 uiU/mL (0.358-3.740) Height (Feet): 5 Height (Inches): 8.00 Weight (Pounds): 190 Medications Current Medications Medications (Trade) Dose Ordered Sig/Felipe Route PRN Reason Start Time Stop Time Status Last Admin Dose Admin Acetaminophen (Tylenol) 650 mg Q4H PRN ORAL fever 11/18/18 15:30 12/18/18 15:29 Al Hydroxide/Mg Hydroxide (Mylanta II) 30 ml Q6H PRN ORAL dyspepsia 11/18/18 15:30 12/18/18 15:29 Amlodipine Besylate (Norvasc) 5 mg DAILY ORAL 11/19/18 09:00 12/19/18 08:59 11/19/18 09:51 Colchicine (Colchicine) 0.6 mg DAILY ORAL 11/19/18 09:00 12/19/18 08:59 11/19/18 09:00 Dextrose (Dextrose 50%) 25 ml Q30M PRN IV Hypoglycemia 11/18/18 15:45 12/18/18 15:34 Dextrose (Dextrose 50%) 50 ml Q30M PRN IV hypoglycemia 11/18/18 15:45 12/18/18 15:44 Iopamidol (Isovue-300 100ml) 100 ml NOW PRN INJ Radiology Procedure 11/18/18 11:15 Lorazepam (Ativan 2mg/ml 1ml) 0.5 mg Q4H PRN IV For Anxiety 11/18/18 15:30 11/25/18 15:29 Morphine Sulfate (Morphine Sulfate) 1 mg Q4H PRN IVP SEVERE PAIN 11/18/18 15:30 11/25/18 15:29 11/19/18 08:16 Ondansetron HCl (Zofran) 4 mg Q6H PRN IVP Nausea & Vomiting 11/18/18 15:30 12/18/18 15:29 Oxycodone HCl (Roxicodone) 30 mg Q6H PRN ORAL For Pain 11/18/18 15:30 11/25/18 15:29 Polyethylene Glycol (Miralax) 17 gm HSPRN PRN ORAL Constipation 11/18/18 15:30 12/18/18 15:29 Promethazine HCl/ Codeine (Phenergan with Codeine) 5 ml Q4H PRN ORAL For Cough 11/18/18 15:30 12/18/18 15:29 Tamsulosin HCl (Flomax) 0.4 mg QHS ORAL 11/18/18 21:00 12/18/18 20:59 11/18/18 20:58 Zolpidem Tartrate (Ambien) 5 mg HSPRN PRN ORAL Insomnia 11/18/18 15:30 11/25/18 15:29 Assessment/Plan Problem List: (1) Urinary tract infection ICD Codes: N39.0 - Urinary tract infection SNOMED: 24565571 (2) Hematuria ICD Codes: R31.9 - Hematuria, unspecified SNOMED: 90644421 (3) Dysuria ICD Codes: R30.0 - Dysuria SNOMED: 22583491 (4) Costochondritis ICD Codes: M94.0 - Chondrocostal junction syndrome [Tietze] SNOMED: 92000550 (5) Hypertensive hypertrophic cardiomyopathy, without heart failure ICD Codes: I11.9 - Hypertensive heart disease without heart failure; I42.2 - Other hypertrophic cardiomyopathy SNOMED: 92926552, 859965416, 004508662 (6) Depression ICD Codes: F32.9 - Major depressive disorder, single episode, unspecified SNOMED: 81885505 (7) Hepatitis C ICD Codes: B19.20 - Unspecified viral hepatitis C without hepatic coma SNOMED: 55407402 (8) BPH (benign prostatic hypertrophy) ICD Codes: N40.0 - Enlarged prostate without lower urinary tract symptoms SNOMED: 650434378, 048870810 (9) HTN (hypertension) ICD Codes: I10 - Essential (primary) hypertension SNOMED: 26511296 Assessment/Plan Urine c/s Pyruvate for dysuria IV abx Cardiology to see the pt symptomatic treatment avoid anticoagulants. dvt prophylaxis. Susy Morse MD Nov 19, 2018 11:45
[2018-11-19] MEDS ORDERED: LORazepam 1mg tab ORAL PRN (12:30)
--- NOTE | 2018-11-19 12:41 | Consultation ---
History of Present Illness General Chief Complaint: Dyspnea/Respdistress Present Illness HPI the pt was admitted again for cp. the pt has hx of depression and panic attack. the pt was given meds last time and his cp was resolved however he didn't want to continue taking meds since he stated that he was fine and he didnt want to cont taking meds/ the pt now agrees to cont taking meds after discharge Allergies: Coded Allergies: No Known Allergies (Unverified , 10/27/12) Medication History Scheduled Albuterol Sulfate* (Albuterol Sulfate Mdi*), 2 PUFF INH Q4H Amlodipine Besylate* (Amlodipine Besylate*), 5 MG ORAL DAILY, (Reported) Cephalexin* (Keflex*), 500 MG ORAL EVERY 6 HOURS Cholecalciferol (Vitamin D3)* (Vitamin D*), 2,000 UNITS ORAL DAILY, (Reported) Colchicine (Colcrys), 0.6 MG ORAL DAILY Ibuprofen* (Motrin*), 800 MG ORAL Q6H Pantoprazole* (Protonix*), 40 MG ORAL DAILY Phenazopyridine Hcl* (Pyridium*), 100 MG ORAL THREE TIMES A DAY Rivaroxaban (Xarelto*), Unknown Dose ORAL DAILY, (Reported) Simvastatin (Zocor), 40 MG PO QHS, (Reported) Tamsulosin HCl (Flomax), 0.4 MG PO QHS, (Reported) Scheduled PRN Oxycodone Hcl* (Roxicodone*), 30 MG ORAL Q6H PRN for For Pain, (Reported) Tizanidine Hcl* (Zanaflex*), Unknown Dose ORAL THREE TIMES A DAY PRN for For Pain, (Reported) Patient History History Provided By: Patient, Medical Record, PMD Healthcare decision maker N Resuscitation status Full Code Advanced Directive on File Past Medical/Surgical History Past Medical/Surgical History: (1) Costochondritis (2) DVT of leg (deep venous thrombosis) (3) BPH (benign prostatic hypertrophy) (4) Pyelonephritis (5) Dysuria (6) Gastritis (7) HTN (hypertension) (8) COPD exacerbation (9) Hypertensive hypertrophic cardiomyopathy, without heart failure (10) Urinary tract infection (11) Chest pain of uncertain etiology (12) Deep vein thrombosis (DVT) of left lower extremity (13) Pyelonephritis, acute (14) ACS (acute coronary syndrome) (15) COPD (chronic obstructive pulmonary disease) (16) Renal cell carcinoma (17) Hepatitis C (18) Depression (19) Hypercholesteremia (20) Hematuria Review of Systems Psychiatric: Reports: prior hx, anxiety, depressed feelings, emotional problems Physical Exam General Appearance: no apparent distress, alert Neurologic: oriented x 3, responsive, depressed affect Last 24 Hour Vital Signs Date Time Temp Pulse Resp B/P (MAP) Pulse Ox O2 Delivery O2 Flow Rate FiO2 11/19/18 12:00 97.1 81 16 111/67 (82) 96 11/19/18 09:51 79 130/70 11/19/18 09:00 Room Air 11/19/18 08:00 97.4 76 16 130/70 (90) 96 11/19/18 08:00 78 11/19/18 04:00 98.0 79 17 99/60 (73) 92 11/19/18 03:20 82 11/19/18 00:00 98.8 82 16 110/65 (80) 94 11/18/18 23:24 80 11/18/18 21:00 Room Air 11/18/18 20:00 98.2 83 16 119/67 (84) 96 11/18/18 20:00 87 11/18/18 16:14 Room Air 11/18/18 16:00 98.2 84 138/72 (94) 11/18/18 15:28 97.5 93 18 132/78 99 Room Air 21 11/18/18 15:20 97.5 93 18 132/78 99 Room Air 21 11/18/18 13:25 97.5 84 16 121/74 99 Room Air 21 Intake and Output 11/18/18 11/19/18 19:00 07:00 Intake Total 415 ml Balance 415 ml Intake Oral 360 ml IV Total 55 ml # Voids 1 3 Laboratory Tests Test 11/18/18 13:00 11/19/18 06:47 Urine Color Yellow Urine Appearance Slightly cloudy Urine pH 6.5 (4.5-8.0) Urine Specific [place] 1.010 (1.005-1.035) Urine Protein 3+ (NEGATIVE) H Urine Glucose (UA) Negative (NEGATIVE) Urine Ketones 1+ (NEGATIVE) H Urine Blood 5+ (NEGATIVE) H Urine Nitrite Negative (NEGATIVE) Urine Bilirubin Negative (NEGATIVE) Urine Urobilinogen 4 MG/DL (0.0-1.0) H Urine Leukocyte Esterase 3+ (NEGATIVE) H Urine RBC 30-40 /HPF (0 - 0) H Urine WBC 40-60 /HPF (0 - 0) H Urine Squamous Epithelial Cells Occasional /LPF Urine Bacteria Occasional /HPF (NONE) White Blood Count 14.2 K/UL (4.8-10.8) H Red Blood Count 4.45 M/UL (4.70-6.10) L Hemoglobin 14.1 G/DL (14.2-18.0) L Hematocrit 41.6 % (42.0-52.0) L Mean Corpuscular Volume 94 FL (80-99) Mean Corpuscular Hemoglobin 31.7 PG (27.0-31.0) H Mean Corpuscular Hemoglobin Concent 33.9 G/DL (32.0-36.0) Red Cell Distribution Width 12.0 % (11.6-14.8) Platelet Count 201 K/UL (150-450) Mean Platelet Volume 8.0 FL (6.5-10.1) Neutrophils (%) (Auto) 74.0 % (45.0-75.0) Lymphocytes (%) (Auto) 15.7 % (20.0-45.0) L Monocytes (%) (Auto) 8.4 % (1.0-10.0) Eosinophils (%) (Auto) 0.6 % (0.0-3.0) Basophils (%) (Auto) 1.2 % (0.0-2.0) Sodium Level 138 MMOL/L (136-145) Potassium Level 4.0 MMOL/L (3.5-5.1) Chloride Level 104 MMOL/L (98-107) Carbon Dioxide Level 24 MMOL/L (21-32) Anion Gap 10 mmol/L (5-15) Blood Urea Nitrogen 17 mg/dL (7-18) Creatinine 1.4 MG/DL (0.55-1.30) H Estimat Glomerular Filtration Rate mL/min (>60) Glucose Level 142 MG/DL (74-106) H Calcium Level 8.8 MG/DL (8.5-10.1) Total Bilirubin 0.8 MG/DL (0.2-1.0) Aspartate Amino Transf (AST/SGOT) 24 U/L (15-37) Alanine Aminotransferase (ALT/SGPT) 42 U/L (12-78) Alkaline Phosphatase 72 U/L (46-116) Total Protein 7.2 G/DL (6.4-8.2) Albumin 3.3 G/DL (3.4-5.0) L Globulin 3.9 g/dL Albumin/Globulin Ratio 0.8 (1.0-2.7) L Triglycerides Level 66 MG/DL (30-150) Cholesterol Level 136 MG/DL (< 200) LDL Cholesterol 76 mg/dL (<100) HDL Cholesterol 47 MG/DL (40-60) Cholesterol/HDL Ratio 2.9 (3.3-4.4) L Thyroid Stimulating Hormone (TSH) 0.589 uiU/mL (0.358-3.740) Height (Feet): 5 Height (Inches): 8.00 Weight (Pounds): 190 Medications Current Medications Medications (Trade) Dose Ordered Sig/Felipe Route PRN Reason Start Time Stop Time Status Last Admin Dose Admin Acetaminophen (Tylenol) 650 mg Q4H PRN ORAL fever 11/18/18 15:30 12/18/18 15:29 Al Hydroxide/Mg Hydroxide (Mylanta II) 30 ml Q6H PRN ORAL dyspepsia 11/18/18 15:30 12/18/18 15:29 Amlodipine Besylate (Norvasc) 5 mg DAILY ORAL 11/19/18 09:00 12/19/18 08:59 11/19/18 09:51 Colchicine (Colchicine) 0.6 mg DAILY ORAL 11/19/18 09:00 12/19/18 08:59 11/19/18 09:00 Dextrose (Dextrose 50%) 25 ml Q30M PRN IV Hypoglycemia 11/18/18 15:45 12/18/18 15:34 Dextrose (Dextrose 50%) 50 ml Q30M PRN IV hypoglycemia 11/18/18 15:45 12/18/18 15:44 Escitalopram Oxalate (Lexapro) 10 mg DAILY ORAL 11/20/18 09:00 12/20/18 08:59 Iopamidol (Isovue-300 100ml) 100 ml NOW PRN INJ Radiology Procedure 11/18/18 11:15 Levofloxacin 100 ml @ 100 mls/hr Q24H IVPB 11/19/18 13:00 11/26/18 12:59 Lorazepam (Ativan) 1 mg Q6H PRN ORAL For Anxiety 11/19/18 12:30 11/26/18 12:29 Mirtazapine (Remeron) 7.5 mg BEDTIME ORAL 11/19/18 21:00 12/19/18 20:59 Morphine Sulfate (Morphine Sulfate) 1 mg Q4H PRN IVP SEVERE PAIN 11/18/18 15:30 11/25/18 15:29 11/19/18 08:16 Ondansetron HCl (Zofran) 4 mg Q6H PRN IVP Nausea & Vomiting 11/18/18 15:30 12/18/18 15:29 Oxycodone HCl (Roxicodone) 30 mg Q6H PRN ORAL For Pain 11/18/18 15:30 11/25/18 15:29 Phenazopyridine HCl (Pyridium) 100 mg THREE TIMES A DAY ORAL 11/19/18 13:00 11/21/18 09:01 Polyethylene Glycol (Miralax) 17 gm HSPRN PRN ORAL Constipation 11/18/18 15:30 12/18/18 15:29 Promethazine HCl/ Codeine (Phenergan with Codeine) 5 ml Q4H PRN ORAL For Cough 11/18/18 15:30 12/18/18 15:29 Tamsulosin HCl (Flomax) 0.4 mg QHS ORAL 11/18/18 21:00 12/18/18 20:59 11/18/18 20:58 Zolpidem Tartrate (Ambien) 5 mg HSPRN PRN ORAL Insomnia 11/18/18 15:30 11/25/18 15:29 Assessment/Plan Problem List: (1) MDD (major depressive disorder), recurrent episode, moderate ICD Codes: F33.1 - Major depressive disorder, recurrent, moderate SNOMED: 91419241, 835295075 (2) Anxiety disorder ICD Codes: F41.9 - Anxiety disorder, unspecified SNOMED: 248069355 (3) Depression ICD Codes: F32.9 - Major depressive disorder, single episode, unspecified SNOMED: 71375409 Status: unchanged Assessment/Plan lexapro 10mg po qam remeron 7.5mg po qhs ativan prn Farhadi,Pantea MD Nov 19, 2018 12:41
--- NOTE | 2018-11-19 19:31 | NUR ---
HAND-OFF: Report given to JOHN PAUL Bhakta. Patient is in stable condition.
--- NOTE | 2018-11-19 19:52 | History & Physical ---
History and Physical History & Physicial Dictated for Int Med-Dr Lara no. [id number]. Leonardo Palencia MD Nov 19, 2018 19:52
--- NOTE | 2018-11-19 19:54 | NUR ---
NURSE NOTES: Report received from JOHN PAUL Gomez. Pt is lying comfortably in semi fowlers with no signs of distress. Pt is A+Ox4 and denies pain/ SOB. IV site is patent, intact, and saline locked. Respirations are even and unlabored on room air. Bed is at lowest position, brakes engaged, siderails x2, bed alarm on, and call light within reach. Pt is in stable condition at this time; will continue to monitor.
[2018-11-19] MEDS: Tamsulosin 0.4mg cap ORAL SCH (20:36)
--- NOTE | 2018-11-19 22:30 | History and Physical Report ---
DATE OF ADMISSION: 11/18/2018 CHIEF COMPLAINT: The patient is a 73-year-old male, presents with complaint of chest pain. HISTORY OF PRESENT ILLNESS: The patient was admitted to [facility] in October of 2018. Please see history and physical and discharge summary dictated at that time. The patient states that he initially began to experience some gross hematuria, this occurred a couple days ago. The patient then began to have a cough. The patient states he began to experience left-sided chest pain. There was no radiation to the left shoulder or to the jaw. The patient presented to [place] emergency room. The patient was admitted for chest pain to rule out acute coronary syndrome and hematuria. REVIEW OF SYSTEMS: CONSTITUTIONAL: The patient denies weight loss or gain. The patient denies fevers or chills. HEENT: The patient denies ear or throat pain. The patient denies headache. CARDIOVASCULAR: The patient denies palpitations. The patient complains of chest pain as above. ABDOMEN: The patient denies nausea, nausea, vomiting, diarrhea, or constipation. GENITOURINARY: The patient denies dysuria or increased frequency of urination. NEUROMUSCULAR: The patient denies seizures or generalized weakness. PAST MEDICAL HISTORY: Significant for, 1. Hypertension. 2. Hypertensive heart disease. 3. History of renal cell tumor, benign. 4. Chronic obstructive pulmonary disease. 5. Hypercholesterolemia. 6. Benign prostatic hypertrophy. 7. Hepatitis C, status post treatment in 2009. 8. Anxiety disorder. 9. Depression. PAST SURGICAL HISTORY: Significant for. 1. Appendectomy. 2. Right nephrectomy secondary to benign tumor. 3. Right knee surgery. CURRENT MEDICATIONS: 1. Amlodipine 5 mg p.o. daily. 2. Vitamin D 1000 units p.o. daily. 3. Colchicine 0.6 mg p.o. twice daily. 4. Motrin 800 mg p.o. q.6 h p.r.n. 5. Oxycodone 30 mg p.o. q.6 h. p.r.n. 6. Protonix 40 mg p.o. daily. 7. Pyridium 100 mg p.o. three times daily. 8. Xarelto 10 mg p.o. daily. 9. Simvastatin 40 mg p.o. at bedtime. 10. Flomax 0.4 mg p.o. at bedtime. 11. Zanaflex 4 mg p.o. three times daily. ALLERGIES: No known drug allergies. SOCIAL HISTORY: The patient is single and lives alone. The patient denies tobacco use, having quit one year ago. The patient previously smoked a pack per day for 50 years. The patient denies alcohol use. PHYSICAL EXAMINATION: VITAL SIGNS: Temperature 97.5, respirations 18, pulse 90, and blood pressure 103/56. GENERAL: The patient is well-developed and well-nourished male, in no apparent distress. HEENT: Eyes, pupils equal responsive to light and accommodation. Extraocular movements are intact. NECK: Supple without lymphadenopathy. CHEST: Lungs are clear to auscultation bilaterally without wheezes or rales. CARDIOVASCULAR: Regular rhythm and rate. S1 and S2 are normal without murmurs, rubs, or gallops. ABDOMEN: Soft, nontender, and nondistended. Positive bowel sounds. No evidence of hepatosplenomegaly. Currently, no rebound or guarding noted. EXTREMITIES: Negative for clubbing, cyanosis, or edema. RECTAL/GENITAL: Refused. NEUROLOGIC: Cranial nerves II through XII are grossly intact without focal deficits. Motor strength is 5/5 bilaterally. Deep tendon reflexes are 2+ plantar. LABORATORY STUDIES: WBC 14.4, hemoglobin 15.5, hematocrit 45.6, and platelets 220,000. Sodium 139, potassium 4.5, chloride 103, CO2 27, BUN 19, creatinine 1.5, and glucose 130. CT of the pelvis revealed bladder wall thickening consistent with cystitis. ASSESSMENT: This is a 73-year-old male. 1. Chest pain. 2. Hypertension. 3. Hypertensive heart disease. 4. Chronic obstructive pulmonary disease. 5. Hypercholesterolemia. 6. Benign prostatic hypertrophy. 7. Hepatitis C. 8. Anxiety disorder. 9. Depression. TREATMENT: 1. Chest pain. A Cardiology consultation has been obtained with Dr. Dariusz Yin. We will follow recommendation of Dr. Yin. 2. Hematuria. A urine culture is pending. The patient has been started empirically on Levaquin intravenously. Await urine culture results. 3. Hypertension. Continue amlodipine as above. 4. Hypertensive heart disease. 5. History of renal cell tumor, status post resection. 6. Chronic obstructive pulmonary disease. A Pulmonary consultation has been obtained with Dr. Susy Morse. 7. Hypercholesterolemia. Continue simvastatin as above. 8. Benign prostatic hypertrophy. 9. Hepatitis C, status post treatment. 10. Anxiety disorder. 11. Depression. Leonardo Palencia M.D. DR: WHITNEY JOB#: [id number] CC:
--- NOTE | 2018-11-20 04:45 | NUR ---
HAND-OFF: Report given to JOHN PAUL Moore. Pt awake/alert, breathing easily on room air, Vital signs stable with SR @75 on monitor at time of transfer. Pt transfered with all belongings, chart and bin medications. Orders transfered prior to moving pt.
--- NOTE | 2018-11-20 07:24 | NUR ---
HAND-OFF: Report given to JOHN PAUL Vann. Pt is in stable condition; plan of care endorsed.
[2018-11-20 07:49] LABS: ANION GAP 11 mmol/L (5-15); BLOOD UREA NITROGEN 16 mg/dL (7-18); CALCIUM 8.9 MG/DL (8.5-10.1); CARBON DIOXIDE 25 MMOL/L (21-32); CHLORIDE 106 MMOL/L (98-107); CREATININE 1.3 MG/DL (0.55-1.30); POTASSIUM 4.6 MMOL/L (3.5-5.1); SODIUM 142 MMOL/L (136-145)
[2018-11-20 08:00] VITALS: BP 123/79
--- NOTE | 2018-11-20 08:00 | NUR ---
NURSE NOTES: Pt awake/alert in bed, breathing easily on room air, denies SOB and denies pain at this time. Vital signs stable with SR @ 71 on monitor. IV access left wrist, flushed with 10 ml NS and locked. Bed left in low position, side rails up x 2 and call light left near pt's hand.
[2018-11-20 08:08] LABS: BASOPHILS % (AUTO) 0.7 % (0.0-2.0); EOSINOPHILS % (AUTO) 1.6 % (0.0-3.0); HEMATOCRIT 43.4 % (42.0-52.0); HEMOGLOBIN 14.5 G/DL (14.2-18.0); LYMPHOCYTES % (AUTO) 25.1 % (20.0-45.0); MEAN CORPUSCULAR VOLUME 94 FL (80-99); MONOCYTES % (AUTO) 7.9 % (1.0-10.0); NEUTROPHILS % (AUTO) 64.7 % (45.0-75.0); PLATELET COUNT 218 K/UL (150-450); RED CELL DISTRIBUTION WIDTH 12.2 % (11.6-14.8); WHITE BLOOD COUNT 8.2 K/UL (4.8-10.8)
[2018-11-20 12:00] VITALS: BP 125/77
--- NOTE | 2018-11-20 12:04 | Pulmonology Progress Note ---
Assessment/Plan Problems: (1) Urinary tract infection (2) Hematuria (3) Dysuria (4) Costochondritis (5) Hypertensive hypertrophic cardiomyopathy, without heart failure (6) Depression (7) Hepatitis C (8) BPH (benign prostatic hypertrophy) (9) HTN (hypertension) Assessment/Plan check urine, iv abx Urology symptomatic treatment Subjective ROS Limited/Unobtainable: No Interval Events: c/o hematuria Allergies: Coded Allergies: No Known Allergies (Unverified , 10/27/12) Objective Last 24 Hour Vital Signs Date Time Temp Pulse Resp B/P (MAP) Pulse Ox O2 Delivery O2 Flow Rate FiO2 11/20/18 08:42 75 114/65 11/20/18 04:00 75 11/20/18 00:00 75 11/19/18 23:56 97.0 72 18 114/65 (81) 93 11/19/18 21:00 Room Air 11/19/18 20:00 98.1 84 18 121/71 (88) 94 11/19/18 20:00 80 11/19/18 16:00 97.1 74 16 128/76 (93) 97 11/19/18 16:00 76 Intake and Output 11/19/18 11/20/18 18:59 06:59 Intake Total 240 ml Balance 240 ml Intake Oral 240 ml # Voids 1 2 General Appearance: WD/WN HEENT: normocephalic, atraumatic Respiratory/Chest: chest wall non-tender, lungs clear Cardiovascular: normal peripheral pulses, normal rate Abdomen: normal bowel sounds, soft, non tender Genitourinary: normal external genitalia Extremities: no cyanosis 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 Microbiology Date/Time Source Procedure Growth Status 11/18/18 11:10 Blood Blood Culture - Preliminary NO GROWTH AFTER 24 HOURS Resulted 11/18/18 10:55 Blood Blood Culture - Preliminary NO GROWTH AFTER 24 HOURS Resulted 11/18/18 13:00 Urine,Clean Catch Urine Culture - Final Citrobacter Koseri Complete Laboratory Tests 11/20/18 06:30: White Blood Count 8.2, Red Blood Count 4.60L, Hemoglobin 14.5, Hematocrit 43.4, Mean Corpuscular Volume 94, Mean Corpuscular Hemoglobin 31.4H, Mean Corpuscular Hemoglobin Concent 33.4, Red Cell Distribution Width 12.2, Platelet Count 218, Mean Platelet Volume 8.0, Neutrophils (%) (Auto) 64.7, Lymphocytes (%) (Auto) 25.1, Monocytes (%) (Auto) 7.9, Eosinophils (%) (Auto) 1.6, Basophils (%) (Auto ) 0.7, Sodium Level 142, Potassium Level 4.6, Chloride Level 106, Carbon Dioxide Level 25, Anion Gap 11, Blood Urea Nitrogen 16, Creatinine 1.3, Estimat Glomerular Filtration Rate , Glucose Level 124H, Calcium Level 8.9, Troponin I 0.000 Current Medications Medications (Trade) Dose Ordered Sig/Felipe Route PRN Reason Start Time Stop Time Status Last Admin Dose Admin Acetaminophen (Tylenol) 650 mg Q4H PRN ORAL fever 11/18/18 15:30 12/18/18 15:29 Al Hydroxide/Mg Hydroxide (Mylanta II) 30 ml Q6H PRN ORAL dyspepsia 11/18/18 15:30 12/18/18 15:29 Amlodipine Besylate (Norvasc) 5 mg DAILY ORAL 11/19/18 09:00 12/19/18 08:59 11/20/18 08:42 Colchicine (Colchicine) 0.6 mg DAILY ORAL 11/19/18 09:00 12/19/18 08:59 11/20/18 08:43 Dextrose (Dextrose 50%) 25 ml Q30M PRN IV Hypoglycemia 11/18/18 15:45 12/18/18 15:34 Dextrose (Dextrose 50%) 50 ml Q30M PRN IV hypoglycemia 11/18/18 15:45 12/18/18 15:44 Escitalopram Oxalate (Lexapro) 10 mg DAILY ORAL 11/20/18 09:00 12/20/18 08:59 11/20/18 08:42 Iopamidol (Isovue-300 100ml) 100 ml NOW PRN INJ Radiology Procedure 11/18/18 11:15 Levofloxacin 100 ml @ 100 mls/hr Q24H IVPB 11/19/18 13:00 11/26/18 12:59 11/19/18 13:09 Lorazepam (Ativan) 1 mg Q6H PRN ORAL For Anxiety 11/19/18 12:30 11/26/18 12:29 Mirtazapine (Remeron) 7.5 mg BEDTIME ORAL 11/19/18 21:00 12/19/18 20:59 11/19/18 20:36 Morphine Sulfate (Morphine Sulfate) 1 mg Q4H PRN IVP SEVERE PAIN 11/18/18 15:30 11/25/18 15:29 11/19/18 17:25 Ondansetron HCl (Zofran) 4 mg Q6H PRN IVP Nausea & Vomiting 11/18/18 15:30 12/18/18 15:29 Oxycodone HCl (Roxicodone) 30 mg Q6H PRN ORAL For Pain 11/18/18 15:30 11/25/18 15:29 Phenazopyridine HCl (Pyridium) 100 mg THREE TIMES A DAY ORAL 11/19/18 13:00 11/21/18 09:01 11/20/18 08:42 Polyethylene Glycol (Miralax) 17 gm HSPRN PRN ORAL Constipation 11/18/18 15:30 12/18/18 15:29 Promethazine HCl/ Codeine (Phenergan with Codeine) 5 ml Q4H PRN ORAL For Cough 11/18/18 15:30 12/18/18 15:29 Tamsulosin HCl (Flomax) 0.4 mg QHS ORAL 11/18/18 21:00 12/18/18 20:59 11/19/18 20:36 Zolpidem Tartrate (Ambien) 5 mg HSPRN PRN ORAL Insomnia 11/18/18 15:30 11/25/18 15:29 Susy Morse MD Nov 20, 2018 12:03
[2018-11-20 13:55] LABS: APPEARANCE,URINE CLEAR; BILIRUBIN, URINE NEGATIVE (NEGATIVE); GLUCOSE, URINE (UA) 2+ (NEGATIVE); KETONES,URINE NEGATIVE (NEGATIVE); LEUKOCYTE ESTERASE ,URINE 2+ (NEGATIVE); NITRITE,URINE POSITIVE (NEGATIVE); PH,URINE 6 (4.5-8.0); PROTEIN,URINE NEGATIVE (NEGATIVE); UROBILINOGEN,URINE NORMAL MG/DL (0.0-1.0)
[2018-11-20 13:57] LABS: COLOR,URINE YELLOW
[2018-11-20] MEDS ORDERED: Isovue-300 100ml vial INJ PRN (15:30)
[2018-11-20] MEDS ORDERED: oxyCODONE 15mg IR tab ORAL PRN (15:30)
[2018-11-20] MEDS ORDERED: Mylanta II UD 30ml ORAL PRN (15:30)
[2018-11-20] MEDS ORDERED: Miralax 17gm pkt ORAL PRN (15:30)
[2018-11-20] MEDS ORDERED: Zolpidem 5mg tab ORAL PRN (15:30)
[2018-11-20] MEDS ORDERED: Morphine Sulfate 2mg/ml Inj(IV/IM USE ONLY) IVP PRN (15:30)
[2018-11-20] MEDS ORDERED: LORazepam 1mg tab ORAL PRN (15:31)
[2018-11-20] MEDS ORDERED: Promethazine/Codeine 5ml UD ORAL PRN (15:32)
[2018-11-20 16:58] VITALS: BP 131/75
--- NOTE | 2018-11-20 16:59 | NUR ---
NURSE NOTES: Received report from ANTONIA, RN from telemetry. Pt transferred from [id number] to [id number]. To, awake, A/O x4, talkative, no apparent distress noted, no complaints of pain, bed in lowest position, call light within reach. Obtained vitals and assessed pt.
--- NOTE | 2018-11-20 17:19 | Internal Med Progress Note ---
Subjective Physician Name Jaylen Lara Attending Physician Jaylen Lara MD Current Medications Medications (Trade) Dose Ordered Sig/Felipe Route PRN Reason Start Time Stop Time Status Last Admin Dose Admin Acetaminophen (Tylenol) 650 mg Q4H PRN ORAL fever 11/20/18 15:30 12/18/18 15:29 Al Hydroxide/Mg Hydroxide (Mylanta II) 30 ml Q6H PRN ORAL dyspepsia 11/20/18 15:30 12/18/18 15:29 Amlodipine Besylate (Norvasc) 5 mg DAILY ORAL 11/21/18 09:00 12/19/18 08:59 Colchicine (Colchicine) 0.6 mg DAILY ORAL 11/21/18 09:00 12/19/18 08:59 Dextrose (Dextrose 50%) 25 ml Q30M PRN IV Hypoglycemia 11/20/18 15:45 12/18/18 15:34 Dextrose (Dextrose 50%) 50 ml Q30M PRN IV hypoglycemia 11/20/18 15:45 12/18/18 15:44 Escitalopram Oxalate (Lexapro) 10 mg DAILY ORAL 11/21/18 09:00 12/20/18 08:59 Iopamidol (Isovue-300 100ml) 100 ml NOW PRN INJ Radiology Procedure 11/20/18 15:30 11/20/18 23:59 Levofloxacin 100 ml @ 100 mls/hr Q24H IVPB 11/21/18 13:00 11/26/18 12:59 Lorazepam (Ativan) 1 mg Q6H PRN ORAL For Anxiety 11/20/18 15:31 11/26/18 15:30 Mirtazapine (Remeron) 7.5 mg BEDTIME ORAL 11/20/18 21:00 12/19/18 20:59 Morphine Sulfate (Morphine Sulfate) 1 mg Q4H PRN IVP SEVERE PAIN 11/20/18 15:30 11/25/18 15:29 Ondansetron HCl (Zofran) 4 mg Q6H PRN IVP Nausea & Vomiting 11/20/18 15:30 12/18/18 15:29 Oxycodone HCl (Roxicodone) 30 mg Q6H PRN ORAL For Pain 11/20/18 15:30 11/25/18 15:29 Phenazopyridine HCl (Pyridium) 100 mg THREE TIMES A DAY ORAL 11/20/18 18:00 11/21/18 09:01 Polyethylene Glycol (Miralax) 17 gm HSPRN PRN ORAL Constipation 11/20/18 15:30 12/18/18 15:29 Promethazine HCl/ Codeine (Phenergan with Codeine) 5 ml Q4H PRN ORAL For Cough 11/20/18 15:32 12/20/18 15:31 Tamsulosin HCl (Flomax) 0.4 mg QHS ORAL 11/20/18 21:00 12/18/18 20:59 Zolpidem Tartrate (Ambien) 5 mg HSPRN PRN ORAL Insomnia 11/20/18 15:30 11/25/18 15:29 Allergies: Coded Allergies: No Known Allergies (Unverified , 10/27/12) Subjective Alert, oriented x3 complaining of burning sensation upon urination, still complained about chest wall sharp electrical pain, decreased shortness of breath , no nausea vomiting. Objective Last Vital Signs Date Time Temp Pulse Resp B/P (MAP) Pulse Ox O2 Delivery O2 Flow Rate FiO2 11/20/18 16:58 97.7 73 16 131/75 (93) 96 73 11/20/18 09:00 Room Air 11/18/18 15:28 21 Laboratory Tests Test 11/20/18 06:30 11/20/18 12:00 White Blood Count 8.2 K/UL (4.8-10.8) Red Blood Count 4.60 M/UL (4.70-6.10) L Hemoglobin 14.5 G/DL (14.2-18.0) Hematocrit 43.4 % (42.0-52.0) Mean Corpuscular Volume 94 FL (80-99) Mean Corpuscular Hemoglobin 31.4 PG (27.0-31.0) H Mean Corpuscular Hemoglobin Concent 33.4 G/DL (32.0-36.0) Red Cell Distribution Width 12.2 % (11.6-14.8) Platelet Count 218 K/UL (150-450) Mean Platelet Volume 8.0 FL (6.5-10.1) Neutrophils (%) (Auto) 64.7 % (45.0-75.0) Lymphocytes (%) (Auto) 25.1 % (20.0-45.0) Monocytes (%) (Auto) 7.9 % (1.0-10.0) Eosinophils (%) (Auto) 1.6 % (0.0-3.0) Basophils (%) (Auto) 0.7 % (0.0-2.0) Sodium Level 142 MMOL/L (136-145) Potassium Level 4.6 MMOL/L (3.5-5.1) Chloride Level 106 MMOL/L (98-107) Carbon Dioxide Level 25 MMOL/L (21-32) Anion Gap 11 mmol/L (5-15) Blood Urea Nitrogen 16 mg/dL (7-18) Creatinine 1.3 MG/DL (0.55-1.30) Estimat Glomerular Filtration Rate mL/min (>60) Glucose Level 124 MG/DL (74-106) H Calcium Level 8.9 MG/DL (8.5-10.1) Troponin I 0.000 ng/mL (0.000-0.056) Urine Color Yellow Urine Appearance Clear Urine pH 6 (4.5-8.0) Urine Specific [place] 1.010 (1.005-1.035) Urine Protein Negative (NEGATIVE) Urine Glucose (UA) 2+ (NEGATIVE) H Urine Ketones Negative (NEGATIVE) Urine Blood Negative (NEGATIVE) Urine Nitrite Positive (NEGATIVE) H Urine Bilirubin Negative (NEGATIVE) Urine Urobilinogen Normal MG/DL (0.0-1.0) Urine Leukocyte Esterase 2+ (NEGATIVE) H Urine RBC 0-2 /HPF (0 - 0) H Urine WBC 5-10 /HPF (0 - 0) H Urine Squamous Epithelial Cells Occasional /LPF Urine Bacteria Occasional /HPF (NONE) Microbiology Date/Time Source Procedure Growth Status 11/18/18 11:10 Blood Blood Culture - Preliminary NO GROWTH AFTER 24 HOURS Resulted 11/18/18 10:55 Blood Blood Culture - Preliminary NO GROWTH AFTER 24 HOURS Resulted 11/18/18 13:00 Urine,Clean Catch Urine Culture - Final Citrobacter Koseri Complete Intake and Output 11/19/18 11/20/18 19:00 07:00 Intake Total 240 ml Balance 240 ml Intake Oral 240 ml # Voids 1 2 Objective General: No acute distress, awake and alert HEENT: NCAT, sclera anicteric, PERRL, EOMI. Neck: Supple, no significant jugular venous distention, Lungs: Good inspiratory effort, clear to auscultation bilaterally, no Wheeze or Rales. Heart: Regular rate and rhythm, normal S1/S2, no murmur. Abdomen: soft, suprapubic tenderness, nondistended. Normoactive bowel sounds. / Rectal: Refused and deferred. Extremities: No Cyanosis , clubbing or edema. Neuro: A&O x 3, Able to move all extremities Skin: warm, no rashes or lesions Psych: Normal mood and affect Assessment/Plan Assessment/Plan 1. Pleuritic chest pain. 2. Hypertension. 3. Hypertensive heart disease. 4. Chronic obstructive pulmonary disease. 5. Hypercholesterolemia. 6. Benign prostatic hypertrophy. 7. Hepatitis C. 8. Anxiety disorder. 9. Depression. 10.Acute CITROBACTER KOSERI UTI 11. History of left renal cell carcinoma status post a partial left nephrectomy. Plan: Continue on antibiotic Levaquin. DC telemetry transferred to medical floor. Discussed with Dr. Morse pulmonary critical care. Consult Dr. Hedrick from urology Continue monitor laboratory as well as cultures. Repeat urinalysis today. CT scan of abdomen and pelvic Impression: Bladder wall thickening and perivesical fat stranding, possibly on the basis of chronic bladder outlet obstruction but concerning for cystitis Massive prostatomegaly, also previously demonstrated Evidence of prior left partial nephrectomy and likely lymph node dissection No evidence of obstructive uropathy or urinary stone disease Is equivocal mild rectal wall thickening, could indicate proctitis Basilar pulmonary parenchymal scarring, also evident previously. Dependent atelectatic changes Colonic diverticulosis Other findings as noted, including mild degenerative spondylosis changes, fat-containing right inguinal and umbilical hernias Jaylen Lara MD Nov 20, 2018 17:19
--- NOTE | 2018-11-20 19:50 | NUR ---
NURSE NOTES: Patient received in bed, aaox4, denies acute distress at this time, verbalized burning upon urination at this time. IV is intact. Bed locked in low position, call light in reach. Will continue to monitor.
--- NOTE | 2018-11-20 19:57 | NUR ---
HAND-OFF: Report given to JOHN PAUL Walker..
[2018-11-20 20:00] VITALS: BP 111/66
--- NOTE | 2018-11-20 20:30 | General Progress Note ---
Assessment/Plan Problem List: (1) MDD (major depressive disorder), recurrent episode, moderate ICD Codes: F33.1 - Major depressive disorder, recurrent, moderate SNOMED: 53407415, 035077240 (2) Anxiety disorder ICD Codes: F41.9 - Anxiety disorder, unspecified SNOMED: 301793221 (3) Depression ICD Codes: F32.9 - Major depressive disorder, single episode, unspecified SNOMED: 09017071 Status: stable, progressing Assessment/Plan lexapro 10mg po qam remeron 7.5mg po qhs ativan prn Subjective Neurologic/Psychiatric: Reports: anxiety, depressed, emotional problems Allergies: Coded Allergies: No Known Allergies (Unverified , 10/27/12) Objective Last 24 Hour Vital Signs Date Time Temp Pulse Resp B/P (MAP) Pulse Ox O2 Delivery O2 Flow Rate FiO2 11/20/18 16:58 97.7 73 16 131/75 (93) 96 73 11/20/18 12:00 97.2 75 16 125/77 (93) 96 11/20/18 09:00 Room Air 11/20/18 08:42 75 114/65 11/20/18 08:00 97.3 71 18 123/79 (94) 97 11/20/18 08:00 72 11/20/18 04:00 75 11/20/18 00:00 75 11/19/18 23:56 97.0 72 18 114/65 (81) 93 11/19/18 21:00 Room Air Intake and Output 11/19/18 11/20/18 19:00 07:00 Intake Total 240 ml Balance 240 ml Intake Oral 240 ml # Voids 1 2 Laboratory Tests 11/20/18 06:30: White Blood Count 8.2, Red Blood Count 4.60L, Hemoglobin 14.5, Hematocrit 43.4, Mean Corpuscular Volume 94, Mean Corpuscular Hemoglobin 31.4H, Mean Corpuscular Hemoglobin Concent 33.4, Red Cell Distribution Width 12.2, Platelet Count 218, Mean Platelet Volume 8.0, Neutrophils (%) (Auto) 64.7, Lymphocytes (%) (Auto) 25.1, Monocytes (%) (Auto) 7.9, Eosinophils (%) (Auto) 1.6, Basophils (%) (Auto ) 0.7, Sodium Level 142, Potassium Level 4.6, Chloride Level 106, Carbon Dioxide Level 25, Anion Gap 11, Blood Urea Nitrogen 16, Creatinine 1.3, Estimat Glomerular Filtration Rate , Glucose Level 124H, Calcium Level 8.9, Troponin I 0.000 11/20/18 12:00: Urine Color Yellow, Urine Appearance Clear, Urine pH 6, Urine Specific [place] 1.010, Urine Protein Negative, Urine Glucose (UA) 2+H, Urine Ketones Negative, Urine Blood Negative, Urine Nitrite PositiveH, Urine Bilirubin Negative, Urine Urobilinogen Normal, Urine Leukocyte Esterase 2+H, Urine RBC 0-2H, Urine WBC 5- 10H, Urine Squamous Epithelial Cells Occasional, Urine Bacteria Occasional Height (Feet): 5 Height (Inches): 8.00 Weight (Pounds): 190 General Appearance: no apparent distress, alert Neurologic: oriented x 3, responsive, depressed affect Angelika Ley MD Nov 20, 2018 20:30
[2018-11-20] MEDS ORDERED: Tamsulosin 0.4mg cap ORAL SCH (21:00)
--- NOTE | 2018-11-20 22:30 | Consultation ---
DATE OF CONSULTATION: 11/20/2018 CONSULTING PHYSICIAN: Carlos Causey M.D. REFERRING PHYSICIAN: Jaylen Lara M.D. REASON FOR CONSULTATION: For evaluation of hematuria and lower urinary tract symptoms. HISTORY OF PRESENT ILLNESS: This is a 73-year-old gentleman. He was originally admitted to the hospital because of chest pain. He was noted to have dysuria and gross hematuria, and Urology evaluation was requested. Apparently, his hematuria has been slowly clearing. He still has dysuria. He was noted to have a UTI. He is on antibiotics. He has a history of BPH. He denies previous prostate surgery. PAST MEDICAL HISTORY: Significant for above. Also, hypertension, renal tumor that was benign, COPD, BPH, anxiety disorder, hepatitis C, and depression. PAST SURGICAL HISTORY: Appendectomy. He has had a partial nephrectomy and knee surgery. CURRENT MEDICATIONS: In the hospital, the patient is on Levaquin, Norvasc, colchicine, Lexapro, Remeron, Flomax, Pyridium, Ativan, Tylenol, Zofran, and oxycodone. ALLERGIES: No known drug allergies. SOCIAL HISTORY: The patient is currently a nonsmoker. FAMILY HISTORY: Noncontributory. REVIEW OF SYSTEMS: As above. PHYSICAL EXAMINATION: GENERAL: This is an elderly male, in no acute distress. VITAL SIGNS: Temperature is 97.7 and blood pressure 131/75. HEENT: Normocephalic. NECK: Supple. ABDOMEN: Soft. BACK: No CVA tenderness. RECTAL: Firm prostate about 40 to 50 g. EXTREMITIES: No clubbing or cyanosis. LABORATORY DATA: UA on admit showed 30 to 40 rbc's, 40 to 60 wbc's, and 3+ protein. White count is 8.2, hemoglobin 14.5, and platelets are 218,000. BUN is 16 and creatinine 1.3. His creatinine was 1.5 on admission. His urine culture showed Citrobacter koseri, sensitivities noted. DIAGNOSTIC AND IMAGING STUDIES: The patient had a CT scan of the abdomen and pelvis. There was mention of bladder wall thickening, possible cystitis, massive prostatomegaly, left partial nephrectomy, and no evidence of obstructive uropathy. IMPRESSION: 1. Dysuria. 2. Urinary frequency. 3. BPH. 4. Hematuria. 5. UTI. 6. Acute kidney injury. 7. Cystitis. PLAN AND DISCUSSION: The patient is to be monitored clinically. He did have hematuria, which is resolving. He does have a UTI. He is to continue with Pyridium and antibiotics as ordered. He is to continue with Flomax as ordered. I will increase the Flomax to b.i.d. I will also add finasteride 5 mg daily. He will need to have a cystoscopy at some point, which can be done as an outpatient. I will follow the patient. Any other recommendations will be forthcoming. Thank you, Dr. Lara for asking me to participate in this consultation. Carlos Causey M.D. DR: TEDDY JOB#: [id number] CC:
[2018-11-20 23:53] VITALS: BP 125/59
[2018-11-21 05:00] VITALS: BP 116/75
--- NOTE | 2018-11-21 07:05 | NUR ---
HAND-OFF: Report given to Teresa COKER.
--- NOTE | 2018-11-21 07:08 | NUR ---
NURSE NOTES: Report Received from JOHN PAUL Walker. Pt in bed, awake, talkative, A/O x4, no complaints of pain, no apparent distress noted, call light within reach, bed in lowest position.
[2018-11-21 07:52] VITALS: BP 137/78
[2018-11-21] MEDS: Tamsulosin 0.4mg cap ORAL SCH ×2 (08:22→17:18)
--- NOTE | 2018-11-21 09:19 | Urology Progress Note ---
Assessment/Plan Assessment/Plan 1. Dysuria. 2. Urinary frequency. 3. BPH. 4. Hematuria. 5. UTI. 6. Acute kidney injury. 7. Cystitis. monitor clinically flomax bid and proscar abx as ordered f/u on blood cx cysto later Subjective Allergies: Coded Allergies: No Known Allergies (Unverified , 10/27/12) Subjective all noted, feels fair Objective Last 24 Hour Vital Signs Date Time Temp Pulse Resp B/P (MAP) Pulse Ox O2 Delivery O2 Flow Rate FiO2 11/21/18 08:23 75 137/78 11/21/18 07:52 97.0 75 18 137/78 (97) 97 75 11/21/18 05:00 97.0 74 19 116/75 (89) 99 74 11/20/18 23:53 97.9 72 16 125/59 (81) 93 72 11/20/18 21:00 Room Air 11/20/18 20:00 97.5 82 17 111/66 (81) 96 11/20/18 16:58 97.7 73 16 131/75 (93) 96 73 11/20/18 12:00 97.2 75 16 125/77 (93) 96 Intake and Output 11/20/18 11/21/18 18:59 06:59 Intake Total 600 ml 250 ml Balance 600 ml 250 ml Intake Oral 600 ml 250 ml # Voids 2 1 # Bowel Movements 1 Microbiology Date/Time Source Procedure Growth Status 11/18/18 11:10 Blood Blood Culture - Preliminary NO GROWTH AFTER 48 HOURS Resulted 11/18/18 11:00 Nasal Nares MRSA Culture - Final NO METHICILLIN RESISTANT STAPH AUREUS... Complete 11/20/18 11:30 Stool Clostridium difficile Toxin Assay - Final Complete 11/18/18 13:00 Urine,Clean Catch Urine Culture - Final Citrobacter Koseri Complete 11/18/18 11:00 Rectum VRE Culture - Final NO VANCOMYCIN RESISTANT ENTEROCOCCUS ... Complete 11/18/18 11:00 Rectum - Final NO CARBAPENEM-RESISTANT ENTEROBACTERI... Complete Current Medications Medications (Trade) Dose Ordered Sig/Felipe Route PRN Reason Start Time Stop Time Status Last Admin Dose Admin Acetaminophen (Tylenol) 650 mg Q4H PRN ORAL fever 11/20/18 15:30 12/18/18 15:29 Al Hydroxide/Mg Hydroxide (Mylanta II) 30 ml Q6H PRN ORAL dyspepsia 11/20/18 15:30 12/18/18 15:29 Amlodipine Besylate (Norvasc) 5 mg DAILY ORAL 11/21/18 09:00 12/19/18 08:59 11/21/18 08:23 Colchicine (Colchicine) 0.6 mg DAILY ORAL 11/21/18 09:00 12/19/18 08:59 11/21/18 08:22 Dextrose (Dextrose 50%) 25 ml Q30M PRN IV Hypoglycemia 11/20/18 15:45 12/18/18 15:34 Dextrose (Dextrose 50%) 50 ml Q30M PRN IV hypoglycemia 11/20/18 15:45 12/18/18 15:44 Escitalopram Oxalate (Lexapro) 10 mg DAILY ORAL 11/21/18 09:00 12/20/18 08:59 Finasteride (Proscar) 5 mg DAILY ORAL 11/20/18 19:30 12/20/18 19:29 11/21/18 08:10 Levofloxacin 100 ml @ 100 mls/hr Q24H IVPB 11/21/18 13:00 11/26/18 12:59 Lorazepam (Ativan) 1 mg Q6H PRN ORAL For Anxiety 11/20/18 15:31 11/26/18 15:30 Mirtazapine (Remeron) 7.5 mg BEDTIME ORAL 11/20/18 21:00 12/19/18 20:59 11/20/18 20:40 Morphine Sulfate (Morphine Sulfate) 1 mg Q4H PRN IVP SEVERE PAIN 11/20/18 15:30 11/25/18 15:29 11/21/18 08:22 Ondansetron HCl (Zofran) 4 mg Q6H PRN IVP Nausea & Vomiting 11/20/18 15:30 12/18/18 15:29 Oxycodone HCl (Roxicodone) 30 mg Q6H PRN ORAL For Pain 11/20/18 15:30 11/25/18 15:29 Polyethylene Glycol (Miralax) 17 gm HSPRN PRN ORAL Constipation 11/20/18 15:30 12/18/18 15:29 Promethazine HCl/ Codeine (Phenergan with Codeine) 5 ml Q4H PRN ORAL For Cough 11/20/18 15:32 3/17/19 15:31 Tamsulosin HCl (Flomax) 0.4 mg BID ORAL 11/21/18 09:00 12/18/18 20:59 11/21/18 08:22 Zolpidem Tartrate (Ambien) 5 mg HSPRN PRN ORAL Insomnia 11/20/18 15:30 11/25/18 15:29 Laboratory Tests 11/20/18 12:00: Urine Color Yellow, Urine Appearance Clear, Urine pH 6, Urine Specific [place] 1.010, Urine Protein Negative, Urine Glucose (UA) 2+H, Urine Ketones Negative, Urine Blood Negative, Urine Nitrite PositiveH, Urine Bilirubin Negative, Urine Urobilinogen Normal, Urine Leukocyte Esterase 2+H, Urine RBC 0-2H, Urine WBC 5- 10H, Urine Squamous Epithelial Cells Occasional, Urine Bacteria Occasional Height (Feet): 5 Height (Inches): 8.00 Weight (Pounds): 190 Objective exam stable Carlos Causey MD Nov 21, 2018 09:19
[2018-11-21] MEDS ORDERED: ATIVAN1 MG ORAL (11:02)
[2018-11-21] MEDS ORDERED: LEXAPRO10 MG ORAL (11:02)
[2018-11-21] MEDS ORDERED: FINASTERIDE5 MG ORAL (11:02)
[2018-11-21] MEDS ORDERED: MIRTAZAPINE15 M3 ORAL (11:02)
[2018-11-21 12:00] VITALS: BP 141/78
--- NOTE | 2018-11-21 14:04 | NUR ---
NURSE NOTES: Pt asking about diverticulosis finding on CT Abdomen. Provided pt with written material on diverticulitis and diverticulosis.
[2018-11-21 16:00] VITALS: BP 127/74
--- NOTE | 2018-11-21 16:21 | Cardiology Report ---
APPROVED REPORT EKG Measurement Heart [id number] CO [id number] [id number] Normal sinus rhythm Normal ECG
--- NOTE | 2018-11-21 19:25 | Internal Med Progress Note ---
Subjective Date of Service: Nov 21, 2018 Physician Name PalenciaLeonardo Attending Physician Jaylen Lara MD Current Medications Medications (Trade) Dose Ordered Sig/Felipe Route PRN Reason Start Time Stop Time Status Last Admin Dose Admin Acetaminophen (Tylenol) 650 mg Q4H PRN ORAL fever 11/20/18 15:30 12/18/18 15:29 Al Hydroxide/Mg Hydroxide (Mylanta II) 30 ml Q6H PRN ORAL dyspepsia 11/20/18 15:30 12/18/18 15:29 Amlodipine Besylate (Norvasc) 5 mg DAILY ORAL 11/21/18 09:00 12/19/18 08:59 11/21/18 08:23 Colchicine (Colchicine) 0.6 mg DAILY ORAL 11/21/18 09:00 12/19/18 08:59 11/21/18 08:22 Dextrose (Dextrose 50%) 25 ml Q30M PRN IV Hypoglycemia 11/20/18 15:45 12/18/18 15:34 Dextrose (Dextrose 50%) 50 ml Q30M PRN IV hypoglycemia 11/20/18 15:45 12/18/18 15:44 Escitalopram Oxalate (Lexapro) 10 mg DAILY ORAL 11/21/18 09:00 12/20/18 08:59 Finasteride (Proscar) 5 mg DAILY ORAL 11/20/18 19:30 12/20/18 19:29 11/21/18 08:10 Levofloxacin 100 ml @ 100 mls/hr Q24H IVPB 11/21/18 13:00 11/26/18 12:59 11/21/18 12:54 Lorazepam (Ativan) 1 mg Q6H PRN ORAL For Anxiety 11/20/18 15:31 11/26/18 15:30 Mirtazapine (Remeron) 7.5 mg BEDTIME ORAL 11/20/18 21:00 12/19/18 20:59 11/20/18 20:40 Morphine Sulfate (Morphine Sulfate) 1 mg Q4H PRN IVP SEVERE PAIN 11/20/18 15:30 11/25/18 15:29 11/21/18 08:22 Ondansetron HCl (Zofran) 4 mg Q6H PRN IVP Nausea & Vomiting 11/20/18 15:30 12/18/18 15:29 Oxycodone HCl (Roxicodone) 30 mg Q6H PRN ORAL For Pain 11/20/18 15:30 11/25/18 15:29 Polyethylene Glycol (Miralax) 17 gm HSPRN PRN ORAL Constipation 11/20/18 15:30 12/18/18 15:29 Promethazine HCl/ Codeine (Phenergan with Codeine) 5 ml Q4H PRN ORAL For Cough 11/20/18 15:32 12/20/18 15:31 Tamsulosin HCl (Flomax) 0.4 mg BID ORAL 11/21/18 09:00 12/18/18 20:59 11/21/18 17:18 Zolpidem Tartrate (Ambien) 5 mg HSPRN PRN ORAL Insomnia 11/20/18 15:30 11/25/18 15:29 Allergies: Coded Allergies: No Known Allergies (Unverified , 10/27/12) ROS Limited/Unobtainable: No Constitutional: Reports: no symptoms HEENT: Reports: no symptoms Cardiovascular: Reports: no symptoms Respiratory: Reports: no symptoms Gastrointestinal/Abdominal: Reports: no symptoms Genitourinary: Reports: hematuria Neurologic/Psychiatric: Reports: no symptoms Subjective 73 YO M admitted with hematuria. Now UTI. Cover for [facility] Med-Dr Lara Objective Last Vital Signs Date Time Temp Pulse Resp B/P (MAP) Pulse Ox O2 Delivery O2 Flow Rate FiO2 11/21/18 16:00 98.1 78 16 127/74 (91) 98 78 11/21/18 09:00 Room Air 11/18/18 15:28 21 Microbiology Date/Time Source Procedure Growth Status 11/20/18 11:30 Stool Clostridium difficile Toxin Assay - Final Complete Intake and Output 11/20/18 11/21/18 19:00 07:00 Intake Total 600 ml 250 ml Balance 600 ml 250 ml Intake Oral 600 ml 250 ml # Voids 2 1 # Bowel Movements 1 Objective PHYSICAL EXAMINATION: VITAL SIGNS: Temperature 97.5, respirations 18, pulse 90, and blood pressure 103/56. GENERAL: The patient is well-developed and well-nourished male, in no apparent distress. HEENT: Eyes, pupils equal responsive to light and accommodation. Extraocular movements are intact. NECK: Supple without lymphadenopathy. CHEST: Lungs are clear to auscultation bilaterally without wheezes or rales. CARDIOVASCULAR: Regular rhythm and rate. S1 and S2 are normal without murmurs, rubs, or gallops. ABDOMEN: Soft, nontender, and nondistended. Positive bowel sounds. No evidence of hepatosplenomegaly. Currently, no rebound or guarding noted. EXTREMITIES: Negative for clubbing, cyanosis, or edema. RECTAL/GENITAL: Refused. NEUROLOGIC: Cranial nerves II through XII are grossly intact without focal deficits. Assessment/Plan Assessment/Plan ASSESSMENT: This is a 73-year-old male. 1. Chest pain. 2. Hypertension. 3. Hypertensive heart disease. 4. Chronic obstructive pulmonary disease. 5. Hypercholesterolemia. 6. Benign prostatic hypertrophy. 7. Hepatitis C. 8. Anxiety disorder. 9. Depression. TREATMENT: 1. Chest pain. A Cardiology consultation has been obtained with Dr. Dariusz Yin. We will follow recommendation of Dr. Yin. 2. Hematuria. A urine culture =Citrobacter. Continue on Levaquin intravenously -see ID note. 3. Hypertension. Continue amlodipine as above. 4. Hypertensive heart disease. 5. History of renal cell tumor, status post resection. 6. Chronic obstructive pulmonary disease. A Pulmonary consultation has been obtained with Dr. Susy Morse. 7. Hypercholesterolemia. Continue simvastatin as above. 8. Benign prostatic hypertrophy. 9. Hepatitis C, status post treatment. 10. Anxiety disorder. 11. Depression. Leonardo Palencia MD Nov 21, 2018 19:25
--- NOTE | 2018-11-21 19:26 | NUR ---
HAND-OFF: Report given to JOHN PAUL Morgan.
--- NOTE | 2018-11-21 19:52 | NUR ---
NURSE NOTES: Received patient in bed, in calm mood. On RA, no SOB, no acute distress, no c/o pain. L hand IV intact, patent, saline lock. Bed in lowest position, locked, alarms on. Call light in reach.
[2018-11-21 20:00] VITALS: BP 129/81
--- NOTE | 2018-11-21 22:14 | General Progress Note ---
Assessment/Plan Problem List: (1) MDD (major depressive disorder), recurrent episode, moderate ICD Codes: F33.1 - Major depressive disorder, recurrent, moderate SNOMED: 16798864, 133078263 (2) Anxiety disorder ICD Codes: F41.9 - Anxiety disorder, unspecified SNOMED: 475769387 (3) Depression ICD Codes: F32.9 - Major depressive disorder, single episode, unspecified SNOMED: 31155296 Assessment/Plan lexapro 10mg po qam remeron 7.5mg po qhs ativan prn Subjective Neurologic/Psychiatric: Reports: anxiety Allergies: Coded Allergies: No Known Allergies (Unverified , 10/27/12) Objective Last 24 Hour Vital Signs Date Time Temp Pulse Resp B/P (MAP) Pulse Ox O2 Delivery O2 Flow Rate FiO2 11/21/18 20:00 98.1 83 17 129/81 (97) 96 83 11/21/18 16:00 98.1 78 16 127/74 (91) 98 78 11/21/18 12:00 98.4 69 17 141/78 (99) 98 69 11/21/18 09:00 Room Air 11/21/18 08:52 97.0 11/21/18 08:23 75 137/78 11/21/18 07:52 97.0 75 18 137/78 (97) 97 75 11/21/18 05:00 97.0 74 19 116/75 (89) 99 74 11/20/18 23:53 97.9 72 16 125/59 (81) 93 72 Intake and Output 11/20/18 11/21/18 19:00 07:00 Intake Total 600 ml 250 ml Balance 600 ml 250 ml Intake Oral 600 ml 250 ml # Voids 2 1 # Bowel Movements 1 Height (Feet): 5 Height (Inches): 8.00 Weight (Pounds): 190 General Appearance: WD/WN, no apparent distress, alert, overweight Neurologic: oriented x 3, responsive Angelika Ley MD Nov 21, 2018 22:14
[2018-11-22] VITALS: BP 135/74
[2018-11-22 04:00] VITALS: BP 118/76
--- NOTE | 2018-11-22 07:26 | NUR ---
HAND-OFF: Report given to Mika COKER.
[2018-11-22 07:47] LABS: BASOPHILS % (AUTO) 1.1 % (0.0-2.0); EOSINOPHILS % (AUTO) 2.1 % (0.0-3.0); HEMATOCRIT 44.1 % (42.0-52.0); HEMOGLOBIN 14.8 G/DL (14.2-18.0); MEAN CORPUSCULAR VOLUME 93 FL (80-99); MONOCYTES % (AUTO) 9.4 % (1.0-10.0); NEUTROPHILS % (AUTO) 49.3 % (45.0-75.0); PLATELET COUNT 275 K/UL (150-450); RED BLOOD COUNT 4.73 M/UL (4.70-6.10); RED CELL DISTRIBUTION WIDTH 12.1 % (11.6-14.8); WHITE BLOOD COUNT 5.4 K/UL (4.8-10.8)
[2018-11-22 08:00] VITALS: BP 111/72
[2018-11-22 08:01] LABS: ANION GAP 9 mmol/L (5-15); BLOOD UREA NITROGEN 13 mg/dL (7-18); CARBON DIOXIDE 26 MMOL/L (21-32); CHLORIDE 106 MMOL/L (98-107); CREATININE 1.3 MG/DL (0.55-1.30); POTASSIUM 4.3 MMOL/L (3.5-5.1); SODIUM 141 MMOL/L (136-145)
--- NOTE | 2018-11-22 09:09 | Urology Progress Note ---
Assessment/Plan Assessment/Plan 1. Dysuria. 2. Urinary frequency. 3. BPH. 4. Hematuria. 5. UTI. 6. Acute kidney injury. 7. Cystitis. monitor clinically flomax bid and proscar, rx given to pt abx as ordered f/u on blood cx cysto later as outpt recheck UA as outpt Subjective Allergies: Coded Allergies: No Known Allergies (Unverified , 10/27/12) Subjective all noted, less dysuria, plan is to go home today Objective Last 24 Hour Vital Signs Date Time Temp Pulse Resp B/P (MAP) Pulse Ox O2 Delivery O2 Flow Rate FiO2 11/22/18 04:00 98.0 65 17 118/76 (90) 100 65 11/22/18 00:00 97.9 66 16 135/74 (94) 95 66 11/21/18 21:00 Room Air 11/21/18 20:00 98.1 83 17 129/81 (97) 96 83 11/21/18 16:00 98.1 78 16 127/74 (91) 98 78 11/21/18 12:00 98.4 69 17 141/78 (99) 98 69 Intake and Output 11/21/18 11/22/18 19:00 07:00 Intake Total 1000 ml 240 ml Balance 1000 ml 240 ml Intake Oral 1000 ml 240 ml # Voids 4 2 # Bowel Movements 2 Microbiology Date/Time Source Procedure Growth Status 11/18/18 11:10 Blood Blood Culture - Preliminary NO GROWTH AFTER 72 HOURS Resulted 11/18/18 11:00 Nasal Nares MRSA Culture - Final NO METHICILLIN RESISTANT STAPH AUREUS... Complete 11/20/18 11:30 Stool Clostridium difficile Toxin Assay - Final Complete 11/18/18 13:00 Urine,Clean Catch Urine Culture - Final Citrobacter Koseri Complete 11/18/18 11:00 Rectum VRE Culture - Final NO VANCOMYCIN RESISTANT ENTEROCOCCUS ... Complete 11/18/18 11:00 Rectum - Final NO CARBAPENEM-RESISTANT ENTEROBACTERI... Complete Current Medications Medications (Trade) Dose Ordered Sig/Felipe Route PRN Reason Start Time Stop Time Status Last Admin Dose Admin Acetaminophen (Tylenol) 650 mg Q4H PRN ORAL fever 11/20/18 15:30 12/18/18 15:29 Al Hydroxide/Mg Hydroxide (Mylanta II) 30 ml Q6H PRN ORAL dyspepsia 11/20/18 15:30 12/18/18 15:29 Amlodipine Besylate (Norvasc) 5 mg DAILY ORAL 11/21/18 09:00 12/19/18 08:59 11/21/18 08:23 Colchicine (Colchicine) 0.6 mg DAILY ORAL 11/21/18 09:00 12/19/18 08:59 11/21/18 08:22 Dextrose (Dextrose 50%) 25 ml Q30M PRN IV Hypoglycemia 11/20/18 15:45 12/18/18 15:34 Dextrose (Dextrose 50%) 50 ml Q30M PRN IV hypoglycemia 11/20/18 15:45 12/18/18 15:44 Escitalopram Oxalate (Lexapro) 10 mg DAILY ORAL 11/21/18 09:00 12/20/18 08:59 Finasteride (Proscar) 5 mg DAILY ORAL 11/20/18 19:30 12/20/18 19:29 11/21/18 08:10 Levofloxacin 100 ml @ 100 mls/hr Q24H IVPB 11/21/18 13:00 11/26/18 12:59 11/21/18 12:54 Lorazepam (Ativan) 1 mg Q6H PRN ORAL For Anxiety 11/20/18 15:31 11/26/18 15:30 Mirtazapine (Remeron) 7.5 mg BEDTIME ORAL 11/20/18 21:00 12/19/18 20:59 11/21/18 20:06 Morphine Sulfate (Morphine Sulfate) 1 mg Q4H PRN IVP SEVERE PAIN 11/20/18 15:30 11/25/18 15:29 11/21/18 08:22 Ondansetron HCl (Zofran) 4 mg Q6H PRN IVP Nausea & Vomiting 11/20/18 15:30 12/18/18 15:29 Oxycodone HCl (Roxicodone) 30 mg Q6H PRN ORAL For Pain 11/20/18 15:30 11/25/18 15:29 Polyethylene Glycol (Miralax) 17 gm HSPRN PRN ORAL Constipation 11/20/18 15:30 12/18/18 15:29 Promethazine HCl/ Codeine (Phenergan with Codeine) 5 ml Q4H PRN ORAL For Cough 11/20/18 15:32 12/20/18 15:31 Tamsulosin HCl (Flomax) 0.4 mg BID ORAL 11/21/18 09:00 12/18/18 20:59 11/21/18 17:18 Zolpidem Tartrate (Ambien) 5 mg HSPRN PRN ORAL Insomnia 11/20/18 15:30 11/25/18 15:29 Laboratory Tests 11/22/18 06:41: White Blood Count 5.4, Red Blood Count 4.73, Hemoglobin 14.8, Hematocrit 44.1, Mean Corpuscular Volume 93, Mean Corpuscular Hemoglobin 31.3H, Mean Corpuscular Hemoglobin Concent 33.5, Red Cell Distribution Width 12.1, Platelet Count 275, Mean Platelet Volume 7.3, Neutrophils (%) (Auto) 49.3, Lymphocytes (%) (Auto) 38.0, Monocytes (%) (Auto) 9.4, Eosinophils (%) (Auto) 2.1, Basophils (%) (Auto ) 1.1, Sodium Level 141, Potassium Level 4.3, Chloride Level 106, Carbon Dioxide Level 26, Anion Gap 9, Blood Urea Nitrogen 13, Creatinine 1.3, Estimat Glomerular Filtration Rate , Glucose Level 132H, Calcium Level 9.0 Height (Feet): 5 Height (Inches): 8.00 Weight (Pounds): 190 Objective exam stable Carlos Causey MD Nov 22, 2018 09:09
[2018-11-22] MEDS: Tamsulosin 0.4mg cap ORAL SCH ×2 (09:17→17:09)
--- NOTE | 2018-11-22 10:07 | NUR ---
NURSE NOTES: pt in bed with no sob nor in any form of distress noted. Breathing regular and unlabored. denies any pain at this time. will continue to monitor
[2018-11-22 12:00] VITALS: BP 130/80
--- NOTE | 2018-11-22 13:12 | Pulmonology Progress Note ---
Assessment/Plan Problems: (1) Urinary tract infection (2) Hematuria (3) Dysuria (4) Costochondritis (5) Hypertensive hypertrophic cardiomyopathy, without heart failure (6) Depression (7) Hepatitis C (8) BPH (benign prostatic hypertrophy) (9) HTN (hypertension) Assessment/Plan check urine, iv abx Urology symptomatic treatment Subjective Allergies: Coded Allergies: No Known Allergies (Unverified , 10/27/12) Objective Last 24 Hour Vital Signs Date Time Temp Pulse Resp B/P (MAP) Pulse Ox O2 Delivery O2 Flow Rate FiO2 11/22/18 09:42 Room Air 11/22/18 09:18 65 111/72 11/22/18 08:00 97.3 70 18 111/72 (85) 100 65 11/22/18 04:00 98.0 65 17 118/76 (90) 100 65 11/22/18 00:00 97.9 66 16 135/74 (94) 95 66 11/21/18 21:00 Room Air 11/21/18 20:00 98.1 83 17 129/81 (97) 96 83 11/21/18 16:00 98.1 78 16 127/74 (91) 98 78 Intake and Output 11/21/18 11/22/18 19:00 07:00 Intake Total 1000 ml 240 ml Balance 1000 ml 240 ml Intake Oral 1000 ml 240 ml # Voids 4 2 # Bowel Movements 2 Microbiology Date/Time Source Procedure Growth Status 11/20/18 11:30 Stool Clostridium difficile Toxin Assay - Final Complete Laboratory Tests 11/22/18 06:41: White Blood Count 5.4, Red Blood Count 4.73, Hemoglobin 14.8, Hematocrit 44.1, Mean Corpuscular Volume 93, Mean Corpuscular Hemoglobin 31.3H, Mean Corpuscular Hemoglobin Concent 33.5, Red Cell Distribution Width 12.1, Platelet Count 275, Mean Platelet Volume 7.3, Neutrophils (%) (Auto) 49.3, Lymphocytes (%) (Auto) 38.0, Monocytes (%) (Auto) 9.4, Eosinophils (%) (Auto) 2.1, Basophils (%) (Auto ) 1.1, Sodium Level 141, Potassium Level 4.3, Chloride Level 106, Carbon Dioxide Level 26, Anion Gap 9, Blood Urea Nitrogen 13, Creatinine 1.3, Estimat Glomerular Filtration Rate , Glucose Level 132H, Calcium Level 9.0 Current Medications Medications (Trade) Dose Ordered Sig/Felipe Route PRN Reason Start Time Stop Time Status Last Admin Dose Admin Acetaminophen (Tylenol) 650 mg Q4H PRN ORAL fever 11/20/18 15:30 12/18/18 15:29 Al Hydroxide/Mg Hydroxide (Mylanta II) 30 ml Q6H PRN ORAL dyspepsia 11/20/18 15:30 12/18/18 15:29 Amlodipine Besylate (Norvasc) 5 mg DAILY ORAL 11/21/18 09:00 12/19/18 08:59 11/22/18 09:18 Colchicine (Colchicine) 0.6 mg DAILY ORAL 11/21/18 09:00 12/19/18 08:59 11/22/18 09:18 Dextrose (Dextrose 50%) 25 ml Q30M PRN IV Hypoglycemia 11/20/18 15:45 12/18/18 15:34 Dextrose (Dextrose 50%) 50 ml Q30M PRN IV hypoglycemia 11/20/18 15:45 12/18/18 15:44 Escitalopram Oxalate (Lexapro) 10 mg DAILY ORAL 11/21/18 09:00 12/20/18 08:59 11/22/18 09:18 Finasteride (Proscar) 5 mg DAILY ORAL 11/20/18 19:30 12/20/18 19:29 11/22/18 09:17 Levofloxacin 100 ml @ 100 mls/hr Q24H IVPB 11/21/18 13:00 11/26/18 12:59 11/22/18 13:03 Lorazepam (Ativan) 1 mg Q6H PRN ORAL For Anxiety 11/20/18 15:31 11/26/18 15:30 Mirtazapine (Remeron) 7.5 mg BEDTIME ORAL 11/20/18 21:00 12/19/18 20:59 11/21/18 20:06 Morphine Sulfate (Morphine Sulfate) 1 mg Q4H PRN IVP SEVERE PAIN 11/20/18 15:30 11/25/18 15:29 11/21/18 08:22 Ondansetron HCl (Zofran) 4 mg Q6H PRN IVP Nausea & Vomiting 11/20/18 15:30 12/18/18 15:29 Oxycodone HCl (Roxicodone) 30 mg Q6H PRN ORAL For Pain 11/20/18 15:30 11/25/18 15:29 Polyethylene Glycol (Miralax) 17 gm HSPRN PRN ORAL Constipation 11/20/18 15:30 12/18/18 15:29 Promethazine HCl/ Codeine (Phenergan with Codeine) 5 ml Q4H PRN ORAL For Cough 11/20/18 15:32 12/20/18 15:31 Tamsulosin HCl (Flomax) 0.4 mg BID ORAL 11/21/18 09:00 12/18/18 20:59 11/22/18 09:17 Zolpidem Tartrate (Ambien) 5 mg HSPRN PRN ORAL Insomnia 11/20/18 15:30 11/25/18 15:29 Susy Morse MD Nov 22, 2018 13:12
[2018-11-22 16:00] VITALS: BP 129/68
[2018-11-22] MEDS ORDERED: NS 275ml ONE (16:02)
[2018-11-22] MEDS ORDERED: Tubing IV Secondary IV ONE (16:02)
--- NOTE | 2018-11-22 18:45 | NUR ---
NURSE NOTES: pt discharged to home with stable condition via taxi. All discharge instruction given to pt and verbalized understanding. IV heplock removed and covered with gauze and taped. denies any pain. RX given to pt.
--- NOTE | 2018-11-22 19:54 | General Progress Note ---
Assessment/Plan Problem List: (1) MDD (major depressive disorder), recurrent episode, moderate ICD Codes: F33.1 - Major depressive disorder, recurrent, moderate SNOMED: 17553202, 839088309 (2) Anxiety disorder ICD Codes: F41.9 - Anxiety disorder, unspecified SNOMED: 454432925 (3) Depression ICD Codes: F32.9 - Major depressive disorder, single episode, unspecified SNOMED: 52292929 Status: stable Assessment/Plan lexapro 10mg po qam remeron 7.5mg po qhs ativan prn script was given to the pt Subjective Neurologic/Psychiatric: Reports: anxiety, depressed, emotional problems Allergies: Coded Allergies: No Known Allergies (Unverified , 10/27/12) Subjective was going to be discharged today. asked for script Objective Last 24 Hour Vital Signs Date Time Temp Pulse Resp B/P (MAP) Pulse Ox O2 Delivery O2 Flow Rate FiO2 11/22/18 16:00 98.1 89 18 129/68 (88) 97 89 11/22/18 12:00 97.7 76 17 130/80 (97) 95 65 11/22/18 09:42 Room Air 11/22/18 09:18 65 111/72 11/22/18 08:00 97.3 70 18 111/72 (85) 100 65 11/22/18 04:00 98.0 65 17 118/76 (90) 100 65 11/22/18 00:00 97.9 66 16 135/74 (94) 95 66 11/21/18 21:00 Room Air 11/21/18 20:00 98.1 83 17 129/81 (97) 96 83 Intake and Output 11/21/18 11/22/18 18:59 06:59 Intake Total 1000 ml 240 ml Balance 1000 ml 240 ml Intake Oral 1000 ml 240 ml # Voids 4 2 # Bowel Movements 2 Laboratory Tests 11/22/18 06:41: White Blood Count 5.4, Red Blood Count 4.73, Hemoglobin 14.8, Hematocrit 44.1, Mean Corpuscular Volume 93, Mean Corpuscular Hemoglobin 31.3H, Mean Corpuscular Hemoglobin Concent 33.5, Red Cell Distribution Width 12.1, Platelet Count 275, Mean Platelet Volume 7.3, Neutrophils (%) (Auto) 49.3, Lymphocytes (%) (Auto) 38.0, Monocytes (%) (Auto) 9.4, Eosinophils (%) (Auto) 2.1, Basophils (%) (Auto ) 1.1, Sodium Level 141, Potassium Level 4.3, Chloride Level 106, Carbon Dioxide Level 26, Anion Gap 9, Blood Urea Nitrogen 13, Creatinine 1.3, Estimat Glomerular Filtration Rate , Glucose Level 132H, Calcium Level 9.0 Height (Feet): 5 Height (Inches): 8.00 Weight (Pounds): 190 General Appearance: no apparent distress, alert Neurologic: oriented x 3, responsive, depressed affect Angelika Ley MD Nov 22, 2018 19:54
--- NOTE | 2018-11-23 21:49 | Diagnostic Imaging Report ---
APPROVED REPORT CPT Code: 44377 Present Symptoms Comments: BILATERAL LEGS PAIN. BILATERAL: Imaging reveals a patent deep venous system bilaterally. There is no evidence of thrombus within the femoral, popliteal or tibial segments. The greater saphenous veins are also within normal limits. Doppler indicates normal spontaneous flow within these segments.
--- NOTE | 2018-11-24 15:18 | Discharge Summary ---
Discharge Summary Discharge Summary _ DATE OF ADMISSION: 11/18/2018 DATE OF DISCHARGE: 11/22/2018 DISCHARGED BY: Dr. Lara REASON FOR ADMISSION: 73 years old male with past medical history of hypertension, COPD, hepatitis C , history of left renal cell carcinoma, status post partial left nephrectomy, BPH , hypercholesterolemia, anxiety disorder , depression presented to emergency department with complaint of chest discomfort, cough and difficulty breathing. Patient also reported recent onset of hematuria. Patient reported right-sided flank pain. Pain described as sharp in nature. Upon evaluation vital signs were stable. Laboratory workup revealed leukocytosis with WBC 14.2, hemoglobin 14.1, hematocrit 41.6, platelets 201. Stable electrolytes, BUN 17 creatinine 1.4. Glucose 142. Stable LFT. Albumin 3.3. Troponin negative. EKG revealed normal sinus rhythm no acute ischemic changes. TSH within normal limits. Urinalysis revealed evidence of pyuria and hematuria. D-dimer 0.4. CT of the abdomen and pelvis revealed bladder wall thickening and perivesical fat stranding, possibly on the basis of chronic bladder outlet obstruction, but was concerning for cystitis. Massive prostatomegaly previously demonstrated. Evidence of prior left partial nephrectomy and likely lymph node dissection. No evidence of obstructive uropathy or urinary stone disease. Bibasilar pulmonary parenchymal scaring, previously evident. Dependent atelectatic changes. Colonic diverticulosis. Patient was admitted for further management. CONSULTANTS: medical technologist microbiology Dr. Yin pulmonary Dr. Morse psychiatrist urologist Dr. Causey [facility] COURSE: Patient is admitted to telemetry floor and started on IV hydration. Taxicab Starter followed. Troponin negative. EKG revealed no acute ischemic changes. Patient had cardiac workup in the past on prior occasions. Per medical technologist microbiology, chest pain likely of musculoskeletal pain. Pain management was addressed. Lipid panel was stable. Blood pressure was managed with current medication regimen of calcium channel thad. Supplemental oxygen provided as needed to keep pulse oximetry above 92%. Pulmonary toilet provided as needed. Antitussive provided as needed. Patient received 1 dose of aminocaproic acid. Hematuria. Patient started on empiric antibiotic for UTI.. Urine culture revealed Citrobacter koseri. Antibiotic regimen optimized based on sensitivity. Pyridium was provided for comfort. Hemoglobin and hematocrit were closely monitored with goal to keep hemoglobin above 7. Hemoglobin remained stable at baseline, hemoglobin 14.8, hematocrit 44.1. Venous duplex bilateral lower extremity revealed no evidence of acute DVT. Urology seen and evaluated patient. Proscar and Flomax continued. No difficulty with voiding. Urologist recommended complete antibiotic for UTI and continue current management of Flomax and Proscar Prescription was provided to patient. Urology recommended to check urinalysis as outpatient and consider to proceed with cystoscopy as outpatient. Renal parameters and electrolytes were closely monitored, electrolytes corrected as needed and nephrotoxins were avoided. Prior to discharge creatinine from 1.5 down to 1.3, BUN from 19 down to 13. Psychiatry followed. Psychiatric medication regimen was optimized. Patient started on Lexapro and Remeron, prescription provided to patient. Patient clinically stabilized and was ready for discharge home. FINAL DIAGNOSES: Acute Citrobacter UTI Hematuria- resolved Pleuritic chest pain Probably costochondritis COPD Hypertensive heart disease BPH Hepatitis C Acute kidney injury- resolved History of left renal cell carcinoma, status post partial left nephrectomy Hypercholesterolemia Major depressive disorder Anxiety disorder DISCHARGE MEDICATIONS: See Medication Reconciliation list. DISCHARGE INSTRUCTIONS: Patient was discharged home. Follow up with primary care provider in one week. Follow-up with urologist. I have been assigned to dictate discharge summary for this account. I was not involved in the patient's management. Renetta Tucker NP Nov 24, 2018 15:18
== END 2018-11-22 18:45 | disposition home or self-care (01) | DRG 690 ==
LOC: EMR 11:00 → 2W 13:26 → EDBEDREQ 14:51 → ENRESERV 14:52 → EDBEDREQ 14:58 → 2E 18:13 → 4E 11-20 16:52
DX: N39.0 Urinary tract infection, site not specified (principal); N17.9 Acute kidney failure, unspecified; I42.2 Other hypertrophic cardiomyopathy; M94.0 Chondrocostal junction syndrome [Tietze]; B96.89 Other specified bacterial agents as the cause of diseases classified elsewhere; Z87.891 Personal history of nicotine dependence; I11.9 Hypertensive heart disease without heart failure; J44.9 Chronic obstructive pulmonary disease, unspecified; E78.00 Pure hypercholesterolemia, unspecified; N40.0 Benign prostatic hyperplasia without lower urinary tract symptoms; F41.9 Anxiety disorder, unspecified; F32.9 Major depressive disorder, single episode, unspecified; Z86.19 Personal history of other infectious and parasitic diseases; R31.9 Hematuria, unspecified; R07.81 Pleurodynia; Z85.528 Personal history of other malignant neoplasm of kidney; Z86.718 Personal history of other venous thrombosis and embolism; K57.90 Diverticulosis of intestine, part unspecified, without perforation or abscess without bleeding
CPT/HCPCS: 36415; 74176; 80048; 80053; 80061; 81001; 81003; 83880; 84443; 84484; 85025; 85379; 86140; 87040; 87081; 87086; 87181; 87324; 93005; 93970; 94640; 94664; 96365; 96375; 99285; J7620

== ENCOUNTER 2019-11-06 13:57 | Inpatient (IN) | payer MEDICARE, MEDICAID ==
[~2019-11-06] VITALS: Ht 175.3 cm; Wt 90.8 kg
[~2019-11-06 13:57] MED LIST changes: +ATIVAN1 MG ORAL; +FINASTERIDE5 MG ORAL; +LEXAPRO10 MG ORAL; +MIRTAZAPINE15 M3 ORAL
--- NOTE | 2019-11-06 14:24 | Emergency Room Report ---
History of Present Illness General Chief Complaint: Headache Source: Patient, Medical Record Present Illness HPI Patient presents with complaints of right-sided headache Points to the temporal area also feels that that he has discomfort to the right neck and right upper shoulder and chest area ongoing for the past 2 weeks patient reports seeing his primary physician recently they entertained possible ear infection however over the night past Night he had 2-3 other episodes with increased pain and throbbing and presents to the ER denies any Shortness of breath denies any focal weakness denies any change with his speech denies any change with vision Allergies: Coded Allergies: No Known Allergies (Unverified , 10/27/12) Patient History Past Medical History: see triage record Reviewed Nursing Documentation: PMH: Agreed; PSxH: Agreed Nursing Documentation-PMH Hx Cardiac Problems: Yes Hx Hypertension: Yes Hx Pacemaker: No Hx Asthma: Yes Hx COPD: Yes Hx Diabetes: Yes - BORDERLINE Hx Cancer: Yes - Benign kidney Cancer Hx Gastrointestinal Problems: Yes Hx Dialysis: No - Hep C, knee surgery 2011 Hx Neurological Problems: No Hx Cerebrovascular Accident: No Hx Seizures: No 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 Hx Dizziness: Yes - WHEN CHANGING FROM SITTING TO STANDING Hx Headaches: Yes - OCCASIONALLY, MORE AFTER FACIAL SWELLING Hx Weakness: Yes - generalized Review of Systems All Other Systems: negative except mentioned in HPI Physical Exam Vital Signs Date Time Temp Pulse Resp B/P (MAP) Pulse Ox O2 Delivery O2 Flow Rate FiO2 11/06/19 14:08 97.7 72 18 126/69 (88) 97 Room Air Sp02 EP Interpretation: reviewed, normal General Appearance: mild distress - Patient presents uncomfortable grimacing Head: normocephalic, atraumatic Eyes: bilateral eye PERRL, bilateral eye EOMI ENT: hearing grossly normal, normal pharynx, TMs + canals normal, uvula midline Neck: full range of motion, supple, no meningismus, no bony tend Respiratory: lungs clear, normal breath sounds, no rhonchi, no respiratory distress, no retraction, no accessory muscle use Cardiovascular #1: normal peripheral pulses, regular rate, rhythm, no edema, no gallop, no JVD, no murmur Gastrointestinal: normal bowel sounds, non tender, soft, no mass, no organomegaly, non-distended, no guarding, no hernia, no pulsatile mass, no rebound Genitourinary: no CVA tenderness Musculoskeletal: normal inspection Neurologic: motor strength/tone normal, extracorporeal technician III-XII nml as tested, oriented x3 , sensory intact, responsive Psychiatric: mood/affect normal Skin: no rash Lymphatic: normal inspection, no adenopathy Medical Decision Making Diagnostic Impression: Primary Impression: Headache Additional Impression: Hypertensive urgency ER Course Patient is a fairly complex patient with multiple differential to consideration including but not limited to cardiac cardiopulmonary and vascular emergencies Other differential such as neurological, neurosurgical and infectious process also entertained CT head makes a mention of some proptosis on the right side I do not appreciate this clinically Patient's blood pressure requires acute emergent intervention Patient did require multiple rounds of medication for discomfort my suspicion for meningitis is low Patient is afebrile does not have any meningeal findings and at this time is stable for further inpatient care Labs Test 11/06/19 14:35 11/07/19 08:20 White Blood Count 5.7 K/UL (4.8-10.8) 10.5 K/UL (4.8-10.8) Red Blood Count 5.04 M/UL (4.70-6.10) 4.63 M/UL (4.70-6.10) Hemoglobin 16.1 G/DL (14.2-18.0) 15.0 G/DL (14.2-18.0) Hematocrit 47.6 % (42.0-52.0) 43.5 % (42.0-52.0) Mean Corpuscular Volume 95 FL (80-99) 94 FL (80-99) Mean Corpuscular Hemoglobin 32.0 PG (27.0-31.0) 32.4 PG (27.0-31.0) Mean Corpuscular Hemoglobin Concent 33.8 G/DL (32.0-36.0) 34.4 G/DL (32.0-36.0) Red Cell Distribution Width 11.7 % (11.6-14.8) 11.8 % (11.6-14.8) Platelet Count 223 K/UL (150-450) 221 K/UL (150-450) Mean Platelet Volume 7.8 FL (6.5-10.1) 7.7 FL (6.5-10.1) Neutrophils (%) (Auto) 53.5 % (45.0-75.0) % (45.0-75.0) Lymphocytes (%) (Auto) 34.4 % (20.0-45.0) % (20.0-45.0) Monocytes (%) (Auto) 10.0 % (1.0-10.0) % (1.0-10.0) Eosinophils (%) (Auto) 0.9 % (0.0-3.0) % (0.0-3.0) Basophils (%) (Auto) 1.2 % (0.0-2.0) % (0.0-2.0) Erythrocyte Sedimentation Rate 17 MM/HR (0-20) Sodium Level 144 MMOL/L (136-145) 140 MMOL/L (136-145) Potassium Level 4.3 MMOL/L (3.5-5.1) 4.8 MMOL/L (3.5-5.1) Chloride Level 106 MMOL/L (98-107) 105 MMOL/L (98-107) Carbon Dioxide Level 28 MMOL/L (21-32) 26 MMOL/L (21-32) Anion Gap 10 mmol/L (5-15) 9 mmol/L (5-15) Blood Urea Nitrogen 13 mg/dL (7-18) 16 mg/dL (7-18) Creatinine 1.1 MG/DL (0.55-1.30) 1.3 MG/DL (0.55-1.30) Estimat Glomerular Filtration Rate mL/min (>60) mL/min (>60) Glucose Level 88 MG/DL (74-106) 246 MG/DL (74-106) Calcium Level 9.3 MG/DL (8.5-10.1) 8.7 MG/DL (8.5-10.1) Total Bilirubin 0.4 MG/DL (0.2-1.0) 0.3 MG/DL (0.2-1.0) Aspartate Amino Transf (AST/SGOT) 23 U/L (15-37) 12 U/L (15-37) Alanine Aminotransferase (ALT/SGPT) 38 U/L (12-78) 29 U/L (12-78) Alkaline Phosphatase 101 U/L (46-116) 83 U/L (46-116) Total Creatine Kinase 174 U/L (26-308) Troponin I 0.000 ng/mL (0.000-0.056) Total Protein 8.0 G/DL (6.4-8.2) 7.4 G/DL (6.4-8.2) Albumin 4.5 G/DL (3.4-5.0) 3.7 G/DL (3.4-5.0) Globulin 3.5 g/dL 3.7 g/dL Albumin/Globulin Ratio 1.3 (1.0-2.7) 1.0 (1.0-2.7) Lipase 102 U/L (73-393) Differential Total Cells Counted 100 Neutrophils % (Manual) 93 % (45-75) Lymphocytes % (Manual) 7 % (20-45) Monocytes % (Manual) 0 % (1-10) Eosinophils % (Manual) 0 % (0-3) Basophils % (Manual) 0 % (0-2) Band Neutrophils 0 % (0-8) Platelet Estimate Adequate Platelet Morphology Normal Red Blood Cell Morphology Normal Thyroid Stimulating Hormone (TSH) 0.181 uiU/mL (0.358-3.740) Rhythm Strip Diag. Results EP Interpretation: yes Rate: 77 Rhythm: NSR, no PVC's, no ectopy CT/MRI/US Diagnostic Results CT/MRI/US Diagnostic Results : Impression CT headIMPRESSION: No acute intracranial process. Right sided proptosis. No retrobulbar mass. Ethmoid sinus mucosal thickening. Last Vital Signs Date Time Temp Pulse Resp B/P (MAP) Pulse Ox O2 Delivery O2 Flow Rate FiO2 11/06/19 14:08 97.7 72 18 126/69 (88) 97 Room Air Status: improved Disposition: ADMITTED INPATIENT Condition: Serious IvanYaneth shah DO Nov 06, 2019 14:24
[2019-11-06] MEDS ORDERED: Morphine Sulfate 4mg/ml Inj (IV USE ONLY) IVP ONE (14:30)
--- NOTE | 2019-11-06 14:33 | NUR ---
ED Nurse Note: PATIENT WALKED INTO ER DUE TO PERSISTENT HEADACHE, RIGHT FRONTAL SITE WITHOUT N/V OR BLURRY VISION OR DIZZINESS. REPORTS NO HEAD INJURY. NO FACIAL DROOP. EQUAL HAND SERVICE STATION MANAGER NOTED. PATIENT AMBULATING TO THE ROOM WITH STEADY GAIT. PATIENT AWAKE, ALERT, ORIENTED X 4. REGULAR, UNLABORED BREATHING NOTED. PATIENT DROVE TO ER FROM HOME.
[2019-11-06] MEDS: Ketorolac 30mg Inj IV ONE ×2 (14:39→14:50)
--- NOTE | 2019-11-06 14:50 | NUR ---
ED Nurse Note: PATIENT REPORTS PARTIAL KIDNEY REMOVAL DUE TO BENIGN TUMOR IN 2011. ERMD NOTIFIED AND DISCONTINUED TORADOL ORDER.
[2019-11-06 14:57] LABS: BASOPHILS % (AUTO) 1.2 % (0.0-2.0); EOSINOPHILS % (AUTO) 0.9 % (0.0-3.0); HEMATOCRIT 47.6 % (42.0-52.0); HEMOGLOBIN 16.1 G/DL (14.2-18.0); LYMPHOCYTES % (AUTO) 34.4 % (20.0-45.0); MEAN CORPUSCULAR VOLUME 95 FL (80-99); NEUTROPHILS % (AUTO) 53.5 % (45.0-75.0); PLATELET COUNT 223 K/UL (150-450); RED BLOOD COUNT 5.04 M/UL (4.70-6.10); RED CELL DISTRIBUTION WIDTH 11.7 % (11.6-14.8); WHITE BLOOD COUNT 5.7 K/UL (4.8-10.8)
[2019-11-06 15:04] VITALS: BP 125/73
--- NOTE | 2019-11-06 15:14 | Diagnostic Imaging Report ---
EXAM: CT Head Without Intravenous Contrast CLINICAL HISTORY: PAIN TECHNIQUE: Axial computed tomography images of the head/brain without intravenous contrast. CTDI is 62.7 mGy and DLP is 1426.4 mGy-cm. One or more of the following dose reduction techniques were used: automated exposure control, adjustment of the mA and/or kV according to patient size, use of iterative reconstruction technique. COMPARISON: No relevant prior studies available. FINDINGS: Brain: Unremarkable. No hemorrhage. No significant white matter disease. No edema. Ventricles: Unremarkable. No ventriculomegaly. Bones/joints: Unremarkable. No acute fracture. Soft tissues: Right sided proptosis.. Sinuses: Ethmoid sinus mucosal thickening. Mastoid air cells: Unremarkable as visualized. No mastoid effusion. IMPRESSION: No acute intracranial process. Right sided proptosis. No retrobulbar mass. Ethmoid sinus mucosal thickening.
[2019-11-06 15:22] LABS: ANION GAP 10 mmol/L (5-15); BLOOD UREA NITROGEN 13 mg/dL (7-18); CALCIUM 9.3 MG/DL (8.5-10.1); CARBON DIOXIDE 28 MMOL/L (21-32); CHLORIDE 106 MMOL/L (98-107); CREATININE 1.1 MG/DL (0.55-1.30); POTASSIUM 4.3 MMOL/L (3.5-5.1); SODIUM 144 MMOL/L (136-145)
[2019-11-06 15:26] LABS: ALANINE AMINOTRANSFERASE 38 U/L (12-78); ALBUMIN 4.5 G/DL (3.4-5.0); ALBUMIN/GLOBULIN RATIO 1.3 (1.0-2.7); ALKALINE PHOSPHATASE 101 U/L (46-116); ASPARTATE AMINO TRANSFERASE 23 U/L (15-37); BILIRUBIN,TOTAL 0.4 MG/DL (0.2-1.0); CREATINE KINASE 174 U/L (26-308)
[2019-11-06] MEDS ORDERED: HYDROmorphone 2 MG, DiphenhydrAMINE 25 MG in NS 55 ML IV ONE (15:30)
[2019-11-06] MEDS ORDERED: DiphenhydrAMINE 50mg/ml Inj ONE (15:30)
[2019-11-06] MEDS ORDERED: Solu-MEDROL 125mg Inj IVP ONE (16:15)
[2019-11-06] MEDS ORDERED: Miralax 17gm pkt ORAL PRN (17:00)
[2019-11-06] MEDS ORDERED: Zolpidem 5mg tab ORAL PRN (17:00)
[2019-11-06 17:40] VITALS: BP 129/74
[2019-11-06 19:10] VITALS: BP 131/76
--- NOTE | 2019-11-06 19:10 | NUR ---
ED Nurse Note: Received report from Marbella COKER. Pt alert and oriented, verbally responsive. Not in any distress. Mother at bedside.
--- NOTE | 2019-11-06 20:06 | NUR ---
ED Nurse Note: Report given to Aida COKER.
[2019-11-06 20:10] VITALS: BP 135/73
--- NOTE | 2019-11-06 20:10 | NUR ---
TRANSFER TO FLOOR: Patient transferred to Telemetry unit. Report given to Aida COKER. Pt alert and oriented, verbally responsive. Not in any distress. Sinus rhythm. Ambulatory. Afebrile. IV line on left AC 20g patent and intact. No skin issues. Med recon done. All belongings sent with the patient.
[2019-11-06 20:30] VITALS: BP 139/84
--- NOTE | 2019-11-06 20:30 | NUR ---
NURSE NOTES: received pt from JOHN PAUL Acuna from ED. pt is AO X4, able to make needs known, denies pain at this time. pt is on room air, saturation at 93-94%, no s/sx of respiratory distress noted. new gown and cardiac monitor technician applied. cardiac monitor technician shows SR at this time. no acute cardiac distress noted. urinal placed at bedside. no skin alterations noted. LAC 20 g IV site is patent and intact, asymptomatic. bed in lowest position and locked, siderails up X2, call light within reach. will continue to monitor. will contact MD for admission orders.
[2019-11-06] MEDS: Tamsulosin 0.4mg cap ORAL SCH (21:37)
[2019-11-06] MEDS: oxyCODONE 15mg IR tab ORAL PRN (21:43)
[2019-11-07] VITALS: BP 138/80
[2019-11-07 04:00] VITALS: BP 136/79
--- NOTE | 2019-11-07 07:46 | NUR ---
HAND-OFF: Report given to JOHN PAUL Garcia. pt is in stable condition.
[2019-11-07 08:00] VITALS: BP 142/81
--- NOTE | 2019-11-07 08:10 | NUR ---
NURSE NOTES: Patient sitting up in bed, awake and alert, on room air, c/o pain on right side of head, eating breakfast, bed in lowest position, call light within reach.
[2019-11-07 08:51] LABS: HEMATOCRIT 43.5 % (42.0-52.0); MEAN CORPUSCULAR VOLUME 94 FL (80-99); PLATELET COUNT 221 K/UL (150-450); RED BLOOD COUNT 4.63 M/UL (4.70-6.10); RED CELL DISTRIBUTION WIDTH 11.8 % (11.6-14.8); WHITE BLOOD COUNT 10.5 K/UL (4.8-10.8)
[2019-11-07] MEDS: Xarelto 10mg tab ORAL SCH (08:58)
[2019-11-07] MEDS: oxyCODONE 15mg IR tab ORAL PRN (08:59)
[2019-11-07 09:19] LABS: ALANINE AMINOTRANSFERASE 29 U/L (12-78); ALBUMIN 3.7 G/DL (3.4-5.0); ALKALINE PHOSPHATASE 83 U/L (46-116); ANION GAP 9 mmol/L (5-15); ASPARTATE AMINO TRANSFERASE 12 U/L (15-37); BILIRUBIN,TOTAL 0.3 MG/DL (0.2-1.0); BLOOD UREA NITROGEN 16 mg/dL (7-18); CALCIUM 8.7 MG/DL (8.5-10.1); CARBON DIOXIDE 26 MMOL/L (21-32); CHLORIDE 105 MMOL/L (98-107); CREATININE 1.3 MG/DL (0.55-1.30); POTASSIUM 4.8 MMOL/L (3.5-5.1); SODIUM 140 MMOL/L (136-145)
[2019-11-07 12:00] VITALS: BP_SYST 126; BP_SYST 136; BP_DIAS 78; BP_DIAS 81
--- NOTE | 2019-11-07 13:57 | Consultation ---
History of Present Illness General Date patient seen: Nov 07, 2019 Chief Complaint: Present Illness Allergies: Coded Allergies: No Known Allergies (Unverified , 10/27/12) Medication History Scheduled Albuterol Sulfate* (Albuterol Sulfate Mdi*), 2 PUFF INH Q4H Amlodipine Besylate* (Amlodipine Besylate*), 5 MG ORAL DAILY, (Reported) Cephalexin* (Keflex*), 500 MG ORAL EVERY 6 HOURS Cholecalciferol (Vitamin D3)* (Vitamin D*), 2,000 UNITS ORAL DAILY, (Reported) Colchicine (Colcrys), 0.6 MG ORAL DAILY Escitalopram Oxalate* (Lexapro*), 10 MG ORAL DAILY Finasteride (Finasteride), 5 MG ORAL DAILY Ibuprofen* (Motrin*), 800 MG ORAL Q6H Mirtazapine* (Mirtazapine*), 7.5 MG ORAL BEDTIME Pantoprazole* (Protonix*), 40 MG ORAL DAILY Phenazopyridine Hcl* (Pyridium*), 100 MG ORAL THREE TIMES A DAY Rivaroxaban (Xarelto*), Unknown Dose ORAL DAILY, (Reported) Simvastatin (Zocor), 40 MG PO QHS, (Reported) Tamsulosin HCl (Flomax), 0.4 MG PO QHS, (Reported) Scheduled PRN Lorazepam* (Ativan*), 1 MG ORAL Q6H PRN Oxycodone Hcl* (Roxicodone*), 30 MG ORAL Q6H PRN for For Pain, (Reported) Tizanidine Hcl* (Zanaflex*), Unknown Dose ORAL THREE TIMES A DAY PRN for For Pain, (Reported) Patient History Healthcare decision maker SELF Resuscitation status Full Code Advanced Directive on File Physical Exam Last 24 Hour Vital Signs Date Time Temp Pulse Resp B/P (MAP) Pulse Ox O2 Delivery O2 Flow Rate FiO2 11/07/19 12:00 82 11/07/19 08:58 76 142/81 11/07/19 08:00 75 11/07/19 08:00 98.4 76 20 142/81 (101) 97 11/07/19 04:00 81 11/07/19 04:00 97.0 63 20 136/79 (98) 96 11/07/19 00:00 68 11/07/19 00:00 97.3 69 20 138/80 (99) 94 11/06/19 22:05 Room Air 11/06/19 21:00 73 11/06/19 20:30 97.3 71 20 139/84 (102) 93 11/06/19 20:10 97.9 76 18 135/73 100 Room Air 11/06/19 20:10 97.9 76 18 135/73 100 Room Air 11/06/19 19:10 98.2 82 19 131/76 98 Room Air 11/06/19 17:40 98.6 92 16 129/74 96 Room Air 11/06/19 15:08 98.6 11/06/19 15:04 97.7 89 19 125/73 99 Room Air 11/06/19 14:08 97.7 72 18 126/69 (88) 97 Room Air Intake and Output 11/06/19 11/07/19 19:00 07:00 Intake Total 100 ml 720 ml Balance 100 ml 720 ml Intake Oral 720 ml IV Total 100 ml # Voids 1 2 Laboratory Tests Test 11/06/19 14:35 11/07/19 08:20 White Blood Count 5.7 K/UL (4.8-10.8) 10.5 K/UL (4.8-10.8) # Red Blood Count 5.04 M/UL (4.70-6.10) 4.63 M/UL (4.70-6.10) L Hemoglobin 16.1 G/DL (14.2-18.0) 15.0 G/DL (14.2-18.0) Hematocrit 47.6 % (42.0-52.0) 43.5 % (42.0-52.0) Mean Corpuscular Volume 95 FL (80-99) 94 FL (80-99) Mean Corpuscular Hemoglobin 32.0 PG (27.0-31.0) H 32.4 PG (27.0-31.0) H Mean Corpuscular Hemoglobin Concent 33.8 G/DL (32.0-36.0) 34.4 G/DL (32.0-36.0) Red Cell Distribution Width 11.7 % (11.6-14.8) 11.8 % (11.6-14.8) Platelet Count 223 K/UL (150-450) 221 K/UL (150-450) Mean Platelet Volume 7.8 FL (6.5-10.1) 7.7 FL (6.5-10.1) Neutrophils (%) (Auto) 53.5 % (45.0-75.0) % (45.0-75.0) Lymphocytes (%) (Auto) 34.4 % (20.0-45.0) % (20.0-45.0) Monocytes (%) (Auto) 10.0 % (1.0-10.0) % (1.0-10.0) Eosinophils (%) (Auto) 0.9 % (0.0-3.0) % (0.0-3.0) Basophils (%) (Auto) 1.2 % (0.0-2.0) % (0.0-2.0) Erythrocyte Sedimentation Rate 17 MM/HR (0-20) Sodium Level 144 MMOL/L (136-145) 140 MMOL/L (136-145) Potassium Level 4.3 MMOL/L (3.5-5.1) 4.8 MMOL/L (3.5-5.1) Chloride Level 106 MMOL/L (98-107) 105 MMOL/L (98-107) Carbon Dioxide Level 28 MMOL/L (21-32) 26 MMOL/L (21-32) Anion Gap 10 mmol/L (5-15) 9 mmol/L (5-15) Blood Urea Nitrogen 13 mg/dL (7-18) 16 mg/dL (7-18) Creatinine 1.1 MG/DL (0.55-1.30) 1.3 MG/DL (0.55-1.30) Estimat Glomerular Filtration Rate mL/min (>60) mL/min (>60) Glucose Level 88 MG/DL (74-106) 246 MG/DL (74-106) #H Calcium Level 9.3 MG/DL (8.5-10.1) 8.7 MG/DL (8.5-10.1) Total Bilirubin 0.4 MG/DL (0.2-1.0) 0.3 MG/DL (0.2-1.0) Aspartate Amino Transf (AST/SGOT) 23 U/L (15-37) 12 U/L (15-37) L Alanine Aminotransferase (ALT/SGPT) 38 U/L (12-78) 29 U/L (12-78) Alkaline Phosphatase 101 U/L (46-116) 83 U/L (46-116) Total Creatine Kinase 174 U/L (26-308) Troponin I 0.000 ng/mL (0.000-0.056) Total Protein 8.0 G/DL (6.4-8.2) 7.4 G/DL (6.4-8.2) Albumin 4.5 G/DL (3.4-5.0) 3.7 G/DL (3.4-5.0) Globulin 3.5 g/dL 3.7 g/dL Albumin/Globulin Ratio 1.3 (1.0-2.7) 1.0 (1.0-2.7) Lipase 102 U/L (73-393) Differential Total Cells Counted 100 Neutrophils % (Manual) 93 % (45-75) H Lymphocytes % (Manual) 7 % (20-45) L Monocytes % (Manual) 0 % (1-10) L Eosinophils % (Manual) 0 % (0-3) Basophils % (Manual) 0 % (0-2) Band Neutrophils 0 % (0-8) Platelet Estimate Adequate Platelet Morphology Normal Red Blood Cell Morphology Normal Thyroid Stimulating Hormone (TSH) 0.181 uiU/mL (0.358-3.740) Height (Feet): 5 Height (Inches): 9.00 Weight (Pounds): 194 Medications Current Medications Medications (Trade) Dose Ordered Sig/Felipe Route PRN Reason Start Time Stop Time Status Last Admin Dose Admin Acetaminophen (Tylenol) 650 mg Q4H PRN ORAL fever 11/06/19 17:00 12/06/19 16:59 Amlodipine Besylate (Norvasc) 5 mg DAILY ORAL 11/07/19 09:00 12/07/19 08:59 11/07/19 08:58 Colchicine (Colchicine) 0.6 mg DAILY ORAL 11/07/19 09:00 12/07/19 08:59 11/07/19 08:58 Dextrose (Dextrose 50%) 25 ml Q30M PRN IV Hypoglycemia 11/06/19 17:00 12/06/19 16:59 Dextrose (Dextrose 50%) 50 ml Q30M PRN IV Hypoglycemia 11/06/19 17:00 12/06/19 16:59 Escitalopram Oxalate (Lexapro) 10 mg DAILY ORAL 11/07/19 09:00 12/07/19 08:59 11/07/19 08:59 Finasteride (Proscar) 5 mg DAILY ORAL 11/07/19 09:00 12/07/19 08:59 11/07/19 08:58 Mirtazapine (Remeron) 7.5 mg BEDTIME ORAL 11/06/19 21:00 12/06/19 20:59 11/06/19 21:37 Oxycodone HCl (Roxicodone) 30 mg Q6H PRN ORAL For Pain 11/06/19 17:00 11/13/19 16:59 11/07/19 08:59 Polyethylene Glycol (Miralax) 17 gm HSPRN PRN ORAL Constipation 11/06/19 17:00 12/06/19 16:59 Rivaroxaban (Xarelto) 10 mg DAILY ORAL 11/07/19 09:00 12/07/19 08:59 11/07/19 08:58 Tamsulosin HCl (Flomax) 0.4 mg QHS ORAL 11/06/19 21:00 12/06/19 20:59 11/06/19 21:37 Zolpidem Tartrate (Ambien) 5 mg HSPRN PRN ORAL Insomnia 11/06/19 17:00 11/13/19 16:59 Assessment/Plan Assessment/Plan: (1) Lumbar DDD (2) Lumbar Spondylosis (3) Lumbar Radiculopathy (4) Opioid Dependency seen dictated Guy Sepulveda Nov 07, 2019 13:57
--- NOTE | 2019-11-07 15:41 | History & Physical ---
History and Physical History & Physicial Dictated for Int Med-DR Lara no. [id number]. Leonardo Palencia MD Nov 07, 2019 15:41
--- NOTE | 2019-11-07 15:42 | NUR ---
PT Note PT eva completed, treatment initiated. Patient has muscle weakness with gait instability, making him at a risk for falls. Patient can benefit from PT services to increase his muscle strength and balance to improve his safety in mobility and gait. Addendum: 11/07/19 at 1544 by MANUELITO NEWMAN PT Amended: Links added.
[2019-11-07] MEDS ORDERED: Gadavist 7.5mMol/7.5ml vial IV PRN (15:45)
[2019-11-07 16:00] VITALS: BP 126/78
--- NOTE | 2019-11-07 19:30 | History and Physical Report ---
DATE OF ADMISSION: 11/06/2019 CHIEF COMPLAINT: The patient is a 74-year-old male, who presents with a chief complaint of right-sided headache. HISTORY OF PRESENT ILLNESS: The patient states history of present illness began on Friday, November 01, 2019. The patient began to experience right-sided headache. The patient was evaluated by his primary care physician. It was thought that the patient had a right ear infection. The patient states headache is gotten worse. The patient states there is a vein which is prominent on the right side of his head. The patient complains of persistent headache since Friday, November 01, 2019. The patient presented to [place] emergency room on November 06, 2019. The patient is admitted with right-sided headache to rule out intracranial bleed. REVIEW OF SYSTEMS: CONSTITUTIONAL: The patient denies weight loss or weight gain. The patient denies fevers or chills. HEENT: The patient complains of headache as above. The patient denies ear or throat pain. CARDIOVASCULAR: The patient denies palpitations or chest pain. CHEST: The patient denies wheeze or shortness of breath. ABDOMINAL: The patient denies nausea, vomiting, diarrhea, or constipation. GENITOURINARY: The patient denies dysuria or increased frequency of urination. PAST MEDICAL HISTORY: Significant for, 1. Hypertension. 2. Hypertensive heart disease. 3. History of renal cell tumor, benign in 2011. 4. Chronic obstructive pulmonary disease. 5. Hypercholesterolemia. 6. Benign prostatic hypertrophy. 7. Hepatitis C, status post treatment in 2009. 8. Anxiety disorder. 9. Depression. PAST SURGICAL HISTORY: Significant for, 1. Appendectomy. 2. Right tien nephrectomy secondary to benign tumor. 3. Right knee surgery. CURRENT MEDICATIONS: 1. Albuterol metered-dose inhaler two puffs p.o. 4 times a day p.r.n. 2. Amlodipine 5 mg p.o. daily. 3. Vitamin D 2000 units p.o. daily. 4. Colchicine 0.6 mg p.o. daily. 5. Lexapro 10 mg p.o. daily. 6. Finasteride 5 mg p.o. daily. 7. Lorazepam 1 mg p.o. q.6 hours p.r.n. 8. Mirtazapine 15 mg p.o. at bedtime. 9. Oxycodone 30 mg p.o. q.6 hours p.r.n. 10. Protonix 40 mg p.o. daily. 11. Simvastatin 40 mg p.o. at bedtime. 12. Flomax 0.4 mg p.o. daily. 13. Zanaflex 4 mg p.o. 3 times daily. 14. Xarelto 10 mg p.o. daily. ALLERGIES: No known drug allergies. SOCIAL HISTORY: The patient is single and lives alone. The patient admits to tobacco use of one pack per day for the past 50 years. The patient denies alcohol use. PHYSICAL EXAMINATION: VITAL SIGNS: Temperature 97.7, respirations 18, pulse 72, and blood pressure 126/69. GENERAL: The patient is a well-nourished and well-nourished male, in no apparent distress. HEENT: Eyes, pupils are equal and responsive to light and accommodation. Extraocular movements are intact. NECK: Supple without lymphadenopathy. CHEST: Lungs are clear to auscultation bilaterally without wheezes or rales. CARDIOVASCULAR: Regular rhythm and rate. S1 and S2 are normal without murmurs, rubs, or gallops. ABDOMEN: Soft, nontender, and nondistended. Positive bowel sounds. No evidence of hepatosplenomegaly. Currently, no rebound or guarding noted. EXTREMITIES: Negative for clubbing, cyanosis, or edema. RECTAL/GENITAL: Not performed. NEUROLOGIC: Cranial nerves II through XII are grossly intact without focal deficits. Motor strength is 5/5 bilaterally. Deep tendon reflexes are 2+ plantar. LABORATORY STUDIES: WBC 5.7, hemoglobin 16.1, hematocrit 47.6, and platelets 222,000. Sodium 144, potassium 4.3, chloride 106, CO2 20, BUN 13, creatinine 1.1, and glucose 88. TSH 0.181. The CT scan of the brain was reported as no acute intracranial process. ASSESSMENT: This is a 74-year-old male. 1. Headache. 2. Ataxia. 3. Hypertension. 4. Hypertensive heart disease. 5. History of renal cell tumor, benign. 6. Chronic obstructive pulmonary disease. 7. Hypercholesterolemia. 8. Benign prostatic hypertrophy. 9. Hepatitis C, status post treatment in 2009. 10. Anxiety disorder. 11. Depression. TREATMENT: 1. Right-sided headache/ataxia. An MRI of the brain is pending. A CT scan showed ethmoid sinus mucosal thickening. The patient has been started empirically on antibiotics for probable sinusitis. 2. Hypertensive heart disease. 3. Hypertension. Continue amlodipine as above. 4. Chronic obstructive pulmonary disease. Continue albuterol metered-dose inhaler as above. 5. Hypercholesterolemia. Continue atorvastatin as above. 6. Benign prostatic hypertrophy. Continue Flomax and finasteride as above. 7. Hepatitis C, status post treatment in 2009. 8. Anxiety/depression. Continue Lexapro as above. Leonardo Palencia M.D. DR: EUSEBIO JOB#: [id number] CC:
--- NOTE | 2019-11-07 19:50 | NUR ---
HAND-OFF: Report given to Patricia Cat RN. Patient sitting up in bed, awake and alert, watching television, IV running into patent left antecubital, bed in lowest position, call light within reach, in no apparent distress.
[2019-11-07 20:00] VITALS: BP_SYST 127; BP_SYST 135; BP_DIAS 67; BP_DIAS 77
--- NOTE | 2019-11-07 20:00 | NUR ---
NURSE NOTES: RECEIVED PATIENT LYING IN BED, EYES CLOSED, RESPONSIVE TO NAME, ALERT/ORIENTED X4, DENIES PAIN. NO SIGNS AND SYMPTOMS OF ACUTE CARDIO RESPIRATORY DISTRESS/SHORTNESS OF BREATH, DENIES CHEST PAIN, NO PERIPHERAL EDEMA NOTED, CONTINUE TO COMPLAIN OF INTERMITTENT HEADACHE/NEUROLOGY CONSULT, PATIENT AWARE. ABDOMEN ROUND/NON TENDER/AUDIBLE BOWEL SOUNDS, NO NAUSEA/VOMITING. SIDE RAILS UP X2 FOR MOBILITY, BED IN LOWEST POSITION FOR SAFETY. CALL LIGHT WITHIN REACH. CONTINUE WITH CURRENT PLAN OF CARE. NAD.
[2019-11-07] MEDS: Tamsulosin 0.4mg cap ORAL SCH (21:32)
--- NOTE | 2019-11-07 23:15 | Consultation ---
DATE OF CONSULTATION: 11/07/2019 PAIN MANAGEMENT CONSULTATION CONSULTING PHYSICIAN: Morteza Joseph M.D. REFERRING PHYSICIAN: Susy Morse M.D. PHYSICIAN VENDETTE: Lucy Flores CHIEF COMPLAINT: Low back pain. HISTORY OF PRESENT ILLNESS: This is a 74-year-old male, who is being seen on the telemetry floor of [facility] for initial pain management consultation. The patient was admitted under the care of Dr. Vazquez and being seen by Dr. Morse with complaint of low back pain and since 2011, it is a chronic constant pain rating it a 5/10, describing pain as burning pain radiating into right lower extremity, increasing with movement and reduced with oxycodone. He is being seen by Dr. Matt Del Rio as an outpatient where he gets oxycodone 30 mg three times a day and now has been started on oxycodone 30 mg every 6 hours as needed for pain. He is comfortable at this time, waiting to be seen by neurologist and has been tolerating the back pain on the oxycodone. We were consulted so the patient would have adequate pain control while here in the hospital. PAST MEDICAL HISTORY: Hypertension, BPH, high cholesterol. PAST SURGICAL HISTORY: Left kidney surgery. SOCIAL HISTORY: He is a smoker. Denies alcohol and IV drug abuse. ALLERGIES: No known drug allergies. MEDICATIONS: Oxycodone, albuterol, amlodipine, Keflex, vitamin D, colchicine, Lexapro, finasteride, Motrin, mirtazapine, Protonix, Pyridium, Xarelto, Zocor, Flomax. REVIEW OF SYSTEMS: Denies rash, fever, chills, sweating, dizziness, drowsiness, blurred vision, sore throat, or change in weight. No shortness of breath or chest pain. No nausea, vomiting, diarrhea, or blood in the stool or urine. No dysuria. He is complaining of low back pain. PHYSICAL EXAMINATION: GENERAL: Alert, awake, and oriented. VITAL SIGNS: Blood pressure is 142/81, heart rate 72, oxygen saturation 97%, respiratory rate 20, and temperature is 98.4 degrees Fahrenheit. HEENT: PERRLA. NECK: Range of motion is full in all directions. No tenderness to paracervical muscles. No adenopathy. LUNGS: Decreased breath sounds bilaterally. HEART: S1 and S2 regular. ABDOMEN: Obese. BACK: Range of motion is decreased in flexion and extension with tenderness to paraspinal muscles. EXTREMITIES: Upper and lower extremity range of motion is full. No cyanosis. No clubbing. Sensory is intact. Reflexes are not obtained. No adenopathy. ASSESSMENT AND PLAN: This is a 74-year-old male with lumbar degenerative joint disease, lumbar spondylosis, lumbar radiculopathy, opiate with dependency. The patient will continue on oxycodone here in the hospital and we recommend the patient to taper off with oxycodone. He seems understanding. We discussed with his outpatient pain management physician. The patient was discussed with Dr. Joseph and Dr. Joseph concurred. We will follow the patient. Thank you very much for the courtesy of this consultation. Morteza Joseph M.D. TEN Flores DR: ALENA JOB#: [id number] CC:
[2019-11-08] VITALS: BP 127/72
[2019-11-08 04:00] VITALS: BP 124/70
--- NOTE | 2019-11-08 06:31 | NUR ---
NURSE NOTES: RESTED WELL, NO SIGNIFICANT CHANGE OF CONDITION NOTED THROUGHOUT THE NIGHT. SAFETY MAINTAINED. NAD.
[2019-11-08 07:04] LABS: ANION GAP 6 mmol/L (5-15); BLOOD UREA NITROGEN 15 mg/dL (7-18); CALCIUM 8.4 MG/DL (8.5-10.1); CARBON DIOXIDE 27 MMOL/L (21-32); CHLORIDE 112 MMOL/L (98-107); CREATININE 1.2 MG/DL (0.55-1.30); POTASSIUM 4.4 MMOL/L (3.5-5.1); SODIUM 145 MMOL/L (136-145)
[2019-11-08 07:09] LABS: BASOPHILS % (AUTO) 0.4 % (0.0-2.0); EOSINOPHILS % (AUTO) 0.1 % (0.0-3.0); HEMATOCRIT 40.4 % (42.0-52.0); HEMOGLOBIN 14.2 G/DL (14.2-18.0); LYMPHOCYTES % (AUTO) 19.6 % (20.0-45.0); MEAN CORPUSCULAR VOLUME 93 FL (80-99); MONOCYTES % (AUTO) 8.1 % (1.0-10.0); NEUTROPHILS % (AUTO) 71.8 % (45.0-75.0); PLATELET COUNT 210 K/UL (150-450); RED BLOOD COUNT 4.32 M/UL (4.70-6.10); RED CELL DISTRIBUTION WIDTH 12.2 % (11.6-14.8); WHITE BLOOD COUNT 12.2 K/UL (4.8-10.8)
--- NOTE | 2019-11-08 07:20 | NUR ---
NURSE NOTES: Received report from JOHN PAUL Contreras. The patient is resting on the bed without acute distress or shortness of breath. The patient's bed in the lowest position, call light in reach, and fall and aspiration precaution reinforced. The patient has active transfer order to med/surg with room# 416. Called receiving nurse but not ready. Will continue plan of care until transfer to med/surg.
--- NOTE | 2019-11-08 07:20 | NUR ---
HAND-OFF: Report given to Mohinder ROACH
[2019-11-08 08:00] VITALS: BP 126/64
[2019-11-08] MEDS: Xarelto 10mg tab ORAL SCH (08:39)
[2019-11-08] MEDS: oxyCODONE 15mg IR tab ORAL PRN (08:41)
--- NOTE | 2019-11-08 08:51 | General Progress Note ---
Assessment/Plan Assessment/Plan: (1) Lumbar DDD (2) Lumbar Spondylosis (3) Lumbar Radiculopathy (4) Opioid Dependency Patient to be continued on Oxycodone. D/w Dr. Joseph and he concurred. Subjective Date patient seen: Nov 08, 2019 Time patient seen: 08:30 - am Constitutional: Reports: no symptoms HEENT: Reports: no symptoms Cardiovascular: Reports: no symptoms Respiratory: Reports: no symptoms Gastrointestinal/Abdominal: Reports: no symptoms Genitourinary: Reports: no symptoms Neurologic/Psychiatric: Reports: no symptoms Endocrine: Reports: no symptoms Hematologic/Lymphatic: Reports: no symptoms Allergies: Coded Allergies: No Known Allergies (Unverified , 10/27/12) Subjective Patient is in bed no signs of pain or distress Pain has been tolerated on the Oxycodone. No new complaints at this time. Objective Last 24 Hour Vital Signs Date Time Temp Pulse Resp B/P (MAP) Pulse Ox O2 Delivery O2 Flow Rate FiO2 11/08/19 08:39 62 126/64 11/08/19 04:00 97.0 72 18 124/70 (88) 95 11/08/19 00:00 97.9 72 18 127/72 (90) 95 11/07/19 21:00 Room Air 11/07/19 20:00 98.1 74 18 127/67 (87) 95 11/07/19 16:00 97.5 80 20 126/78 (94) 94 11/07/19 16:00 74 11/07/19 12:00 97.9 73 20 136/81 (99) 96 11/07/19 12:00 82 11/07/19 09:00 Room Air 11/07/19 08:58 76 142/81 Intake and Output 11/07/19 11/08/19 19:00 07:00 Intake Total 980 ml 840 ml Output Total 400 ml Balance 980 ml 440 ml Intake Oral 980 ml 840 ml Output Urine Total 400 ml # Voids 5 2 Laboratory Tests 11/08/19 06:25: White Blood Count 12.2H, Red Blood Count 4.32L, Hemoglobin 14.2, Hematocrit 40.4L, Mean Corpuscular Volume 93, Mean Corpuscular Hemoglobin 32.9H, Mean Corpuscular Hemoglobin Concent 35.2, Red Cell Distribution Width 12.2, Platelet Count 210, Mean Platelet Volume 7.9, Neutrophils (%) (Auto) 71.8, Lymphocytes (% ) (Auto) 19.6L, Monocytes (%) (Auto) 8.1, Eosinophils (%) (Auto) 0.1, Basophils (%) (Auto) 0.4, Sodium Level 145, Potassium Level 4.4, Chloride Level 112H, Carbon Dioxide Level 27, Anion Gap 6, Blood Urea Nitrogen 15, Creatinine 1.2, Estimat Glomerular Filtration Rate , Glucose Level 122#H, Calcium Level 8.4L Height (Feet): 5 Height (Inches): 9.00 Weight (Pounds): 194 General Appearance: no apparent distress, alert EENT: PERRL/EOMI Neck: non-tender, normal alignment Cardiovascular: normal rate, regular rhythm Respiratory/Chest: decreased breath sounds Abdomen: non tender, soft Edema: no edema noted Generalized Neurologic: abnormal gait, alert Skin: normal pigmentation Guy Sepulveda Nov 08, 2019 08:51
--- NOTE | 2019-11-08 10:29 | NUR ---
Social Work This SW received a consult due to homelessness. This SW met with patient who denied any homelessness and planning to discharge to the following address: [address] [place] [address], [place]. Patient remains independent and denied any other concerns at this time. SW to follow further, as needed.
--- NOTE | 2019-11-08 10:30 | NUR ---
NURSE NOTES: The patient completed carotid duplex and will go down to MRI of brain w/ and w/o contrast. The patient will be transferred to [facility] after MRI of brain. Will continue plan of care until transfer to [facility].
--- NOTE | 2019-11-08 11:00 | NUR ---
NURSE NOTES: Handoff received from JOHN PAUL Paredes. Patient received awake and alert and able to make needs known. No acute signs of distress noted. Patient is on room air and has left AC iv site clean dry and intact, saline locked. Bed in the low and locked position with call light within reach, belongings list verified and signed. will continue to monitor patient.
--- NOTE | 2019-11-08 11:33 | NUR ---
NURSE NOTES: The patient got safely transferred to [facility] with transfer to med/surg order after MRI of brain w/ and w/o contrast. The patient's belongings checked with the patient and two nurses and signed by two nurses. The patient's bed in the lowest position, call light in reach, and fall and aspiration precaution reinforced. IV site intact and patent. Comprehensive repot given to JOHN PAUL Elias receiving nurse. Endorsed plan of care.
[2019-11-08] MEDS ORDERED: Miralax 17gm pkt ORAL PRN (11:45)
[2019-11-08] MEDS ORDERED: Gadavist 7.5mMol/7.5ml vial IV PRN (11:45)
[2019-11-08 12:00] VITALS: BP 148/81
--- NOTE | 2019-11-08 12:49 | NUR ---
NURSE NOTES: patient stated that he has not had a bowel movement for [address] herrera was making rounds on patient, updated him on patient's lack of bowel movement. New orders placed.
--- NOTE | 2019-11-08 13:20 | Consultation ---
History of Present Illness General Date patient seen: Nov 08, 2019 Chief Complaint: Headache Present Illness HPI 74 year old male with hx of COPD, HTN, DM, presented to Er with CC of intractable headache mostly at right frontal side. The vessels at the side apparently start pulsating on and off, which causes extreme headache. Pt is admitted for further treatment. Allergies: Coded Allergies: No Known Allergies (Unverified , 10/27/12) Medication History Scheduled Albuterol Sulfate* (Albuterol Sulfate Mdi*), 2 PUFF INH Q4H Amlodipine Besylate* (Amlodipine Besylate*), 5 MG ORAL DAILY, (Reported) Cephalexin* (Keflex*), 500 MG ORAL EVERY 6 HOURS Cholecalciferol (Vitamin D3)* (Vitamin D*), 2,000 UNITS ORAL DAILY, (Reported) Colchicine (Colcrys), 0.6 MG ORAL DAILY Escitalopram Oxalate* (Lexapro*), 10 MG ORAL DAILY Finasteride (Finasteride), 5 MG ORAL DAILY Ibuprofen* (Motrin*), 800 MG ORAL Q6H Mirtazapine* (Mirtazapine*), 7.5 MG ORAL BEDTIME Pantoprazole* (Protonix*), 40 MG ORAL DAILY Phenazopyridine Hcl* (Pyridium*), 100 MG ORAL THREE TIMES A DAY Rivaroxaban (Xarelto*), Unknown Dose ORAL DAILY, (Reported) Simvastatin (Zocor), 40 MG PO QHS, (Reported) Tamsulosin HCl (Flomax), 0.4 MG PO QHS, (Reported) Scheduled PRN Lorazepam* (Ativan*), 1 MG ORAL Q6H PRN Oxycodone Hcl* (Roxicodone*), 30 MG ORAL Q6H PRN for For Pain, (Reported) Tizanidine Hcl* (Zanaflex*), Unknown Dose ORAL THREE TIMES A DAY PRN for For Pain, (Reported) Patient History Healthcare decision maker SELF Resuscitation status Full Code Advanced Directive on File Past Medical/Surgical History Past Medical/Surgical History: (1) BPH (benign prostatic hypertrophy) (2) HTN (hypertension) (3) Deep vein thrombosis (DVT) of left lower extremity (4) COPD (chronic obstructive pulmonary disease) (5) Renal cell carcinoma (6) Hepatitis C (7) Anxiety disorder (8) MDD (major depressive disorder), recurrent episode, moderate Review of Systems All Other Systems: negative except mentioned in HPI Physical Exam General Appearance: WD/WN Lines, tubes and drains: peripheral HEENT: normocephalic, atraumatic Neck: non-tender, normal alignment, supple Respiratory/Chest: chest wall non-tender, lungs clear Abdomen: normal bowel sounds, non tender Genitourinary/Rectal: normal genital exam Extremities: normal range of motion Skin Exam: normal pigmentation Neurologic: no motor/sensory deficits Last 24 Hour Vital Signs Date Time Temp Pulse Resp B/P (MAP) Pulse Ox O2 Delivery O2 Flow Rate FiO2 11/08/19 12:00 97.5 70 18 148/81 (103) 95 11/08/19 08:39 62 126/64 11/08/19 04:00 97.0 72 18 124/70 (88) 95 11/08/19 00:00 97.9 72 18 127/72 (90) 95 11/07/19 21:00 Room Air 11/07/19 20:00 98.1 74 18 127/67 (87) 95 11/07/19 16:00 97.5 80 20 126/78 (94) 94 11/07/19 16:00 74 Intake and Output 11/07/19 11/08/19 19:00 07:00 Intake Total 980 ml 840 ml Output Total 400 ml Balance 980 ml 440 ml Intake Oral 980 ml 840 ml Output Urine Total 400 ml # Voids 5 2 Laboratory Tests Test 11/08/19 06:25 White Blood Count 12.2 K/UL (4.8-10.8) H Red Blood Count 4.32 M/UL (4.70-6.10) L Hemoglobin 14.2 G/DL (14.2-18.0) Hematocrit 40.4 % (42.0-52.0) L Mean Corpuscular Volume 93 FL (80-99) Mean Corpuscular Hemoglobin 32.9 PG (27.0-31.0) H Mean Corpuscular Hemoglobin Concent 35.2 G/DL (32.0-36.0) Red Cell Distribution Width 12.2 % (11.6-14.8) Platelet Count 210 K/UL (150-450) Mean Platelet Volume 7.9 FL (6.5-10.1) Neutrophils (%) (Auto) 71.8 % (45.0-75.0) Lymphocytes (%) (Auto) 19.6 % (20.0-45.0) L Monocytes (%) (Auto) 8.1 % (1.0-10.0) Eosinophils (%) (Auto) 0.1 % (0.0-3.0) Basophils (%) (Auto) 0.4 % (0.0-2.0) Sodium Level 145 MMOL/L (136-145) Potassium Level 4.4 MMOL/L (3.5-5.1) Chloride Level 112 MMOL/L (98-107) H Carbon Dioxide Level 27 MMOL/L (21-32) Anion Gap 6 mmol/L (5-15) Blood Urea Nitrogen 15 mg/dL (7-18) Creatinine 1.2 MG/DL (0.55-1.30) Estimat Glomerular Filtration Rate mL/min (>60) Glucose Level 122 MG/DL (74-106) #H Calcium Level 8.4 MG/DL (8.5-10.1) L Height (Feet): 5 Height (Inches): 9.00 Weight (Pounds): 194 Medications Current Medications Medications (Trade) Dose Ordered Sig/Felipe Route PRN Reason Start Time Stop Time Status Last Admin Dose Admin Acetaminophen (Tylenol) 650 mg Q4H PRN ORAL fever 11/08/19 11:45 12/06/19 11:44 Amlodipine Besylate (Norvasc) 5 mg DAILY ORAL 11/09/19 09:00 12/07/19 08:59 Colchicine (Colchicine) 0.6 mg DAILY ORAL 11/09/19 09:00 12/07/19 08:59 Dextrose (Dextrose 50%) 25 ml Q30M PRN IV Hypoglycemia 11/08/19 12:00 12/06/19 16:59 Dextrose (Dextrose 50%) 50 ml Q30M PRN IV Hypoglycemia 11/08/19 12:00 12/06/19 16:59 Docusate Sodium (Colace) 100 mg TWICE A DAY ORAL 11/08/19 18:00 12/08/19 17:59 Escitalopram Oxalate (Lexapro) 10 mg DAILY ORAL 11/09/19 09:00 12/07/19 08:59 Finasteride (Proscar) 5 mg DAILY ORAL 11/09/19 09:00 12/07/19 08:59 Gadobutrol (Gadavist) 7.5 mmol NOW PRN IV Radiology Procedure 11/08/19 11:45 Levofloxacin 100 ml @ 100 mls/hr Q24H IVPB 11/08/19 17:00 11/14/19 16:59 Mirtazapine (Remeron) 7.5 mg BEDTIME ORAL 11/08/19 21:00 12/06/19 20:59 Oxycodone HCl (Roxicodone) 30 mg Q6H PRN ORAL For Pain 11/08/19 11:45 11/13/19 11:44 Polyethylene Glycol (Miralax) 17 gm HSPRN PRN ORAL Constipation 11/08/19 11:45 12/06/19 11:44 Polyethylene Glycol (Miralax) 238 gm ONCE ORAL 11/08/19 14:00 11/08/19 14:01 Rivaroxaban (Xarelto) 10 mg DAILY ORAL 11/09/19 09:00 12/07/19 08:59 Tamsulosin HCl (Flomax) 0.4 mg QHS ORAL 11/08/19 21:00 12/06/19 20:59 Zolpidem Tartrate (Ambien) 5 mg HSPRN PRN ORAL Insomnia 11/08/19 17:00 11/13/19 16:59 Assessment/Plan Problem List: (1) Intractable headache ICD Codes: R51 - Headache SNOMED: 22051571 (2) Hypertension ICD Codes: I10 - Essential (primary) hypertension SNOMED: 37407338 (3) Anxiety disorder ICD Codes: F41.9 - Anxiety disorder, unspecified SNOMED: 471867457 (4) Hepatitis C ICD Codes: B19.20 - Unspecified viral hepatitis C without hepatic coma SNOMED: 34368115 (5) COPD (chronic obstructive pulmonary disease) ICD Codes: J44.9 - Chronic obstructive pulmonary disease, unspecified SNOMED: 11850280 (6) Hypertensive hypertrophic cardiomyopathy, without heart failure ICD Codes: I11.9 - Hypertensive heart disease without heart failure; I42.2 - Other hypertrophic cardiomyopathy SNOMED: 26448679, 074213589, 653379726 (7) HTN (hypertension) ICD Codes: I10 - Essential (primary) hypertension SNOMED: 76142790 Assessment/Plan: check ESR and CRP for possibility of temporal arteritis respiratory treatment monitor BP symptomatic treatment ESR is normal, temporal arteritis is ruled out. Susy Morse MD Nov 08, 2019 13:20
[2019-11-08] MEDS ORDERED: Polyethylene Glycol 238gm bottle ORAL SCH (14:00)
[2019-11-08 16:00] VITALS: BP 143/75
--- NOTE | 2019-11-08 16:16 | NUR ---
CASE MANAGEMENT:REVIEW 74 YR OLD MALE PRESENTED TO ER FROM HOME CC: HEADACHE. NECK AND BACK PAIN X 2 WEEKS SI: HEADACHE. HYPERTENSION 97.7 72 18 135/73 97% ON RA IS: IV MORPHINE IV TORADOL IV DILAUDID/BENADRYL 500CC NS BOLUS IV ZOFRAN CT HEAD : TO TELEMETRY INTERQUAL CRITERIA MET
--- NOTE | 2019-11-08 16:29 | Diagnostic Imaging Report ---
Indication: Dyspnea Comparison: 11/02/2018 A single view chest radiograph was obtained. Findings: Cardiomediastinal appearance is within normal limits for age. The lungs are clear. Pulmonary vascularity is appropriate. The diaphragmatic contour is smooth and costophrenic angles are sharp. No pleural effusions are identified. The bones are unremarkable. Impression: No acute findings
--- NOTE | 2019-11-08 16:54 | Diagnostic Imaging Report ---
Indication: Right eye headache Technique: The head was imaged in a 1.5 Lacie magnet. Sequences obtained include sagittal and axial T1 FLAIR, axial T2 fast spin echo with fat saturation, axial T2 FLAIR, diffusion and ADC map. Gadolinium-enhanced axial and coronal T1 FLAIR obtained also. Comparison: 12/22/2017 Findings: There is mild prominence of the sulci, ventricles, and basal cisterns consistent with atrophy. Mild, nonspecific T2 hyperintensity noted within white matter. This may be due to chronic small vessel disease. No abnormal enhancement is identified. There is no restricted diffusion. Feldman-white differentiation is normal. There is no mass effect, midline shift, edema, or hemorrhage. There are no abnormal extra-axial or intra-axial fluid collections. The corpus callosum and sella are unremarkable. The brainstem and cerebellum are unremarkable. Bone marrow signal within the visualized osseous structures appears age appropriate and unremarkable otherwise. Impression: No acute intracranial findings. Age-related findings including atrophy and evidence of chronic small vessel disease involving white matter tracts.
--- NOTE | 2019-11-08 16:57 | Diagnostic Imaging Report ---
Indication: Headache. Hypertension TECHNIQUE: Duplex extracranial carotid and vertebral artery sonography performed with color flow imaging and waveform analysis. COMPARISON: None FINDINGS: Right carotid: Grayscale and color-flow imaging demonstrating no hemodynamically significant stenosis within the common carotid artery, extracranial internal carotid artery. Peak systolic and end-diastolic velocities are within normal limits. ICA/CCA ratios are within normal limits. Mild heterogeneous plaques are demonstrated consistent with atherosclerotic disease. Left carotid: Grayscale and color-flow imaging demonstrating no hemodynamically significant stenosis within the common carotid artery, extracranial internal carotid artery. Peak systolic and end-diastolic velocities are within normal limits. ICA/CCA ratios are within normal limits. Mild heterogeneous plaques are demonstrated consistent with atherosclerotic disease. Vertebral arteries: Antegrade flow demonstrated within both vertebral arteries. IMPRESSION: No hemodynamically significant extracranial carotid artery stenosis identified. Antegrade flow within both vertebral arteries. This report utilizes carotid stenosis grading criteria based on the meeting of Society of radiologists in ultrasound consensus conference, July 2002.
[2019-11-08] MEDS: Docusate 100mg cap ORAL SCH (17:24)
--- NOTE | 2019-11-08 19:15 | Internal Med Progress Note ---
Subjective Date of Service: Nov 08, 2019 Physician Name Palencia,Leonardo Attending Physician Jaylen Lara MD Current Medications Medications (Trade) Dose Ordered Sig/Felipe Route PRN Reason Start Time Stop Time Status Last Admin Dose Admin Acetaminophen (Tylenol) 650 mg Q4H PRN ORAL fever 11/08/19 11:45 12/06/19 11:44 Amlodipine Besylate (Norvasc) 5 mg DAILY ORAL 11/09/19 09:00 12/07/19 08:59 Colchicine (Colchicine) 0.6 mg DAILY ORAL 11/09/19 09:00 12/07/19 08:59 Dextrose (Dextrose 50%) 25 ml Q30M PRN IV Hypoglycemia 11/08/19 12:00 12/06/19 16:59 Dextrose (Dextrose 50%) 50 ml Q30M PRN IV Hypoglycemia 11/08/19 12:00 12/06/19 16:59 Docusate Sodium (Colace) 100 mg TWICE A DAY ORAL 11/08/19 18:00 12/08/19 17:59 11/08/19 17:24 Escitalopram Oxalate (Lexapro) 10 mg DAILY ORAL 11/09/19 09:00 12/07/19 08:59 Finasteride (Proscar) 5 mg DAILY ORAL 11/09/19 09:00 12/07/19 08:59 Gadobutrol (Gadavist) 7.5 mmol NOW PRN IV Radiology Procedure 11/08/19 11:45 Levofloxacin 100 ml @ 100 mls/hr Q24H IVPB 11/08/19 17:00 11/14/19 16:59 11/08/19 17:25 Mirtazapine (Remeron) 7.5 mg BEDTIME ORAL 11/08/19 21:00 12/06/19 20:59 Oxycodone HCl (Roxicodone) 30 mg Q6H PRN ORAL For Pain 11/08/19 11:45 11/13/19 11:44 Polyethylene Glycol (Miralax) 17 gm HSPRN PRN ORAL Constipation 11/08/19 11:45 12/06/19 11:44 11/08/19 17:24 Rivaroxaban (Xarelto) 10 mg DAILY ORAL 11/09/19 09:00 12/07/19 08:59 Tamsulosin HCl (Flomax) 0.4 mg QHS ORAL 11/08/19 21:00 12/06/19 20:59 Zolpidem Tartrate (Ambien) 5 mg HSPRN PRN ORAL Insomnia 11/08/19 17:00 11/13/19 16:59 Allergies: Coded Allergies: No Known Allergies (Unverified , 10/27/12) ROS Limited/Unobtainable: No Constitutional: Reports: no symptoms Cardiovascular: Reports: no symptoms Respiratory: Reports: no symptoms Gastrointestinal/Abdominal: Reports: no symptoms Genitourinary: Reports: no symptoms Neurologic/Psychiatric: Reports: no symptoms Subjective 74 YO M admitted with headache. Now sinusitis. Cover for Int Med-DR Lara. Objective Last Vital Signs Date Time Temp Pulse Resp B/P (MAP) Pulse Ox O2 Delivery O2 Flow Rate FiO2 11/08/19 16:00 98.4 69 18 143/75 (97) 96 11/08/19 09:00 Room Air Laboratory Tests Test 11/08/19 06:25 White Blood Count 12.2 K/UL (4.8-10.8) H Red Blood Count 4.32 M/UL (4.70-6.10) L Hemoglobin 14.2 G/DL (14.2-18.0) Hematocrit 40.4 % (42.0-52.0) L Mean Corpuscular Volume 93 FL (80-99) Mean Corpuscular Hemoglobin 32.9 PG (27.0-31.0) H Mean Corpuscular Hemoglobin Concent 35.2 G/DL (32.0-36.0) Red Cell Distribution Width 12.2 % (11.6-14.8) Platelet Count 210 K/UL (150-450) Mean Platelet Volume 7.9 FL (6.5-10.1) Neutrophils (%) (Auto) 71.8 % (45.0-75.0) Lymphocytes (%) (Auto) 19.6 % (20.0-45.0) L Monocytes (%) (Auto) 8.1 % (1.0-10.0) Eosinophils (%) (Auto) 0.1 % (0.0-3.0) Basophils (%) (Auto) 0.4 % (0.0-2.0) Erythrocyte Sedimentation Rate 9 MM/HR (0-20) Sodium Level 145 MMOL/L (136-145) Potassium Level 4.4 MMOL/L (3.5-5.1) Chloride Level 112 MMOL/L (98-107) H Carbon Dioxide Level 27 MMOL/L (21-32) Anion Gap 6 mmol/L (5-15) Blood Urea Nitrogen 15 mg/dL (7-18) Creatinine 1.2 MG/DL (0.55-1.30) Estimat Glomerular Filtration Rate mL/min (>60) Glucose Level 122 MG/DL (74-106) #H Calcium Level 8.4 MG/DL (8.5-10.1) L C-Reactive Protein, Quantitative < 0.4 mg/dL (0.00-0.90) Intake and Output 11/07/19 11/08/19 19:00 07:00 Intake Total 980 ml 840 ml Output Total 400 ml Balance 980 ml 440 ml Intake Oral 980 ml 840 ml Output Urine Total 400 ml # Voids 5 2 Objective PHYSICAL EXAMINATION: GENERAL: The patient is a well-nourished and well-nourished male, in no apparent distress. HEENT: Eyes, pupils are equal and responsive to light and accommodation. Extraocular movements are intact. NECK: Supple without lymphadenopathy. CHEST: Lungs are clear to auscultation bilaterally without wheezes or rales. CARDIOVASCULAR: Regular rhythm and rate. S1 and S2 are normal without murmurs, rubs, or gallops. ABDOMEN: Soft, nontender, and nondistended. Positive bowel sounds. No evidence of hepatosplenomegaly. Currently, no rebound or guarding noted. EXTREMITIES: Negative for clubbing, cyanosis, or edema. RECTAL/GENITAL: Not performed. NEUROLOGIC: Cranial nerves II through XII are grossly intact without focal deficits. Motor strength is 5/5 bilaterally. Deep tendon reflexes are 2+ plantar. Assessment/Plan Assessment/Plan ASSESSMENT: This is a 74-year-old male. 1. Headache. 2. Ataxia. 3. Hypertension. 4. Hypertensive heart disease. 5. History of renal cell tumor, benign. 6. Chronic obstructive pulmonary disease. 7. Hypercholesterolemia. 8. Benign prostatic hypertrophy. 9. Hepatitis C, status post treatment in 2009. 10. Anxiety disorder. 11. Depression. 12. Sinusitis TREATMENT: 1. Right-sided headache/ataxia. An MRI of the brain is pending. A CT scan showed ethmoid sinus mucosal thickening. The patient has been started empirically on antibiotics for probable sinusitis. 2. Hypertensive heart disease. 3. Hypertension. Continue amlodipine as above. 4. Chronic obstructive pulmonary disease. Continue albuterol metered-dose inhaler as above. 5. Hypercholesterolemia. Continue atorvastatin as above. 6. Benign prostatic hypertrophy. Continue Flomax and finasteride as above. 7. Hepatitis C, status post treatment in 2009. 8. Anxiety/depression. Continue Lexapro as above. 9. ABX=Leonardo Juan MD Nov 08, 2019 19:15
--- NOTE | 2019-11-08 19:37 | NUR ---
HAND-OFF: Report given to JOHN PAUL Cannon.
[2019-11-08 20:00] VITALS: BP 139/84
--- NOTE | 2019-11-08 20:00 | NUR ---
NURSE NOTES: Received patient in bed, awake, alert, oriented, able to make his needs known, IV site is clean dry and intact. Patient can ambulate with steady gate, call light is within reach, bed is lowered, locked and alarm is on. Will continue to monitor for comfort and safety.
[2019-11-08] MEDS: Tamsulosin 0.4mg cap ORAL SCH (20:38)
[2019-11-09] VITALS: BP 119/74
[2019-11-09 04:42] VITALS: BP 115/69
--- NOTE | 2019-11-09 07:15 | NUR ---
NURSE NOTES: Handoff received from JOHN PAUL Cannon. Patient received awake and alert and able to make needs known, no acute signs of distress noted. Patient denies pain at this time. IV site is clean dry and intact, saline locked. Bed in the low and locked position with call light within reach, will continue to monitor patient.
--- NOTE | 2019-11-09 07:24 | NUR ---
HAND-OFF: Report given to Curt COKER.
[2019-11-09 08:00] VITALS: BP 131/74
[2019-11-09 08:35] LABS: BASOPHILS % (AUTO) 1.3 % (0.0-2.0); EOSINOPHILS % (AUTO) 1.4 % (0.0-3.0); HEMATOCRIT 44.9 % (42.0-52.0); HEMOGLOBIN 15.5 G/DL (14.2-18.0); LYMPHOCYTES % (AUTO) 37.3 % (20.0-45.0); MEAN CORPUSCULAR VOLUME 94 FL (80-99); MONOCYTES % (AUTO) 6.3 % (1.0-10.0); NEUTROPHILS % (AUTO) 53.7 % (45.0-75.0); PLATELET COUNT 200 K/UL (150-450); RED BLOOD COUNT 4.79 M/UL (4.70-6.10); RED CELL DISTRIBUTION WIDTH 12.3 % (11.6-14.8); WHITE BLOOD COUNT 8.3 K/UL (4.8-10.8)
[2019-11-09 08:58] LABS: ALANINE AMINOTRANSFERASE 36 U/L (12-78); ALBUMIN 3.6 G/DL (3.4-5.0); ALKALINE PHOSPHATASE 82 U/L (46-116); ANION GAP 7 mmol/L (5-15); ASPARTATE AMINO TRANSFERASE 17 U/L (15-37); BILIRUBIN,TOTAL 0.4 MG/DL (0.2-1.0); BLOOD UREA NITROGEN 14 mg/dL (7-18); CARBON DIOXIDE 31 MMOL/L (21-32); CHLORIDE 106 MMOL/L (98-107); CREATININE 1.1 MG/DL (0.55-1.30); POTASSIUM 4.8 MMOL/L (3.5-5.1); SODIUM 144 MMOL/L (136-145)
--- NOTE | 2019-11-09 09:03 | General Progress Note ---
Assessment/Plan Assessment/Plan: (1) Lumbar DDD (2) Lumbar Spondylosis (3) Lumbar Radiculopathy (4) Opioid Dependency Patient to be continued on Oxycodone. D/w Dr. Joseph and he concurred. Subjective Date patient seen: Nov 09, 2019 Time patient seen: 08:15 - am Constitutional: Reports: no symptoms HEENT: Reports: no symptoms Cardiovascular: Reports: no symptoms Respiratory: Reports: no symptoms Gastrointestinal/Abdominal: Reports: no symptoms Genitourinary: Reports: no symptoms Neurologic/Psychiatric: Reports: no symptoms Endocrine: Reports: no symptoms Hematologic/Lymphatic: Reports: no symptoms Allergies: Coded Allergies: No Known Allergies (Unverified , 10/27/12) Subjective He is doing well and pain has been tolerated on the Oxycodone as needed. Has no new complaints at this time. Objective Last 24 Hour Vital Signs Date Time Temp Pulse Resp B/P (MAP) Pulse Ox O2 Delivery O2 Flow Rate FiO2 11/09/19 04:42 97.6 59 17 115/69 (84) 98 11/09/19 00:00 97.4 63 18 119/74 (89) 98 11/08/19 21:30 Room Air 11/08/19 20:00 97.7 64 18 139/84 (102) 96 11/08/19 16:00 98.4 69 18 143/75 (97) 96 11/08/19 12:00 97.5 70 18 148/81 (103) 95 Intake and Output 11/08/19 11/09/19 19:00 07:00 Intake Total 480 ml Balance 480 ml Intake Oral 480 ml # Voids 2 Laboratory Tests 11/09/19 07:15: White Blood Count 8.3, Red Blood Count 4.79, Hemoglobin 15.5, Hematocrit 44.9, Mean Corpuscular Volume 94, Mean Corpuscular Hemoglobin 32.3H, Mean Corpuscular Hemoglobin Concent 34.5, Red Cell Distribution Width 12.3, Platelet Count 200, Mean Platelet Volume 7.7, Neutrophils (%) (Auto) 53.7, Lymphocytes (%) (Auto) 37.3, Monocytes (%) (Auto) 6.3, Eosinophils (%) (Auto) 1.4, Basophils (%) (Auto ) 1.3, Sodium Level 144, Potassium Level 4.8, Chloride Level 106, Carbon Dioxide Level 31, Anion Gap 7, Blood Urea Nitrogen 14, Creatinine 1.1, Estimat Glomerular Filtration Rate , Glucose Level 110H, Calcium Level 9.0, Total Bilirubin 0.4, Aspartate Amino Transf (AST/SGOT) 17, Alanine Aminotransferase ( ALT/SGPT) 36, Alkaline Phosphatase 82, Pro-B-Type Natriuretic Peptide 305H, Total Protein 7.3, Albumin 3.6, Globulin 3.7, Albumin/Globulin Ratio 1.0 Height (Feet): 5 Height (Inches): 9.00 Weight (Pounds): 194 General Appearance: no apparent distress, alert EENT: PERRL/EOMI, normal ENT inspection Neck: normal alignment, supple Cardiovascular: normal rate, regular rhythm Respiratory/Chest: lungs clear, normal breath sounds Abdomen: non tender, soft Extremities: non-tender Edema: no edema noted Generalized Neurologic: alert, oriented x 3 Skin: warm/dry Guy Sepulveda Nov 09, 2019 09:03
[2019-11-09] MEDS: Docusate 100mg cap ORAL SCH ×2 (09:35→17:42)
[2019-11-09] MEDS: Xarelto 10mg tab ORAL SCH (09:36)
[2019-11-09] MEDS: oxyCODONE 15mg IR tab ORAL PRN ×2 (09:51→21:22)
[2019-11-09 12:00] VITALS: BP 143/86
--- NOTE | 2019-11-09 13:00 | NUR ---
P.T. NOTES S/P: APPROACHED PATIENT'S ROOM IN THE PM. PATIENT FOUND LYING IN A SEMI-MUÑZO'S POSITION IN BED UPON ARRIVAL. PATIENT DECLINED P.T. TX. SECONDARY TO PATIENT NOT FEELING WELL. PATIENT'S CHIEF COMPLAINT: HEADACHE. RN AWARE OF PATIENT'S STATUS. WILL F/U NEXT TX. TIME AND CONT WITH P.T. PLAN. RSABADO.
[2019-11-09 16:00] VITALS: BP 138/90
--- NOTE | 2019-11-09 17:05 | Internal Med Progress Note ---
Subjective Date of Service: Nov 09, 2019 Physician Name SlimeLeonardo Attending Physician Jaylen Lara MD Current Medications Medications (Trade) Dose Ordered Sig/Felipe Route PRN Reason Start Time Stop Time Status Last Admin Dose Admin Acetaminophen (Tylenol) 650 mg Q4H PRN ORAL fever 11/08/19 11:45 12/06/19 11:44 Amlodipine Besylate (Norvasc) 5 mg DAILY ORAL 11/09/19 09:00 12/07/19 08:59 11/09/19 09:36 Colchicine (Colchicine) 0.6 mg DAILY ORAL 11/09/19 09:00 12/07/19 08:59 11/09/19 09:36 Dextrose (Dextrose 50%) 25 ml Q30M PRN IV Hypoglycemia 11/08/19 12:00 12/06/19 16:59 Dextrose (Dextrose 50%) 50 ml Q30M PRN IV Hypoglycemia 11/08/19 12:00 12/06/19 16:59 Docusate Sodium (Colace) 100 mg TWICE A DAY ORAL 11/08/19 18:00 12/08/19 17:59 11/09/19 09:35 Escitalopram Oxalate (Lexapro) 10 mg DAILY ORAL 11/09/19 09:00 12/07/19 08:59 11/09/19 09:36 Finasteride (Proscar) 5 mg DAILY ORAL 11/09/19 09:00 12/07/19 08:59 11/09/19 09:37 Gadobutrol (Gadavist) 7.5 mmol NOW PRN IV Radiology Procedure 11/08/19 11:45 Levofloxacin (Levaquin) 500 mg DAILY@1800 ORAL 11/09/19 18:00 11/14/19 23:59 Mirtazapine (Remeron) 7.5 mg BEDTIME ORAL 11/08/19 21:00 12/06/19 20:59 11/08/19 20:39 Oxycodone HCl (Roxicodone) 30 mg Q6H PRN ORAL For Pain 11/08/19 11:45 11/13/19 11:44 11/09/19 09:51 Polyethylene Glycol (Miralax) 17 gm HSPRN PRN ORAL Constipation 11/08/19 11:45 12/06/19 11:44 11/08/19 17:24 Rivaroxaban (Xarelto) 10 mg DAILY ORAL 11/09/19 09:00 12/07/19 08:59 11/09/19 09:36 Tamsulosin HCl (Flomax) 0.4 mg QHS ORAL 11/08/19 21:00 12/06/19 20:59 11/08/19 20:38 Zolpidem Tartrate (Ambien) 5 mg HSPRN PRN ORAL Insomnia 11/08/19 17:00 11/13/19 16:59 Allergies: Coded Allergies: No Known Allergies (Unverified , 10/27/12) ROS Limited/Unobtainable: No Constitutional: Reports: no symptoms HEENT: Reports: no symptoms Cardiovascular: Reports: no symptoms Respiratory: Reports: no symptoms Gastrointestinal/Abdominal: Reports: no symptoms Genitourinary: Reports: no symptoms Neurologic/Psychiatric: Reports: no symptoms Subjective 74 YO M admitted with headache. Now sinusitis. Cover for Int Med-DR Lara. Objective Last Vital Signs Date Time Temp Pulse Resp B/P (MAP) Pulse Ox O2 Delivery O2 Flow Rate FiO2 11/09/19 16:00 97.6 80 19 138/90 (106) 98 11/09/19 09:00 Room Air Laboratory Tests Test 11/09/19 07:15 White Blood Count 8.3 K/UL (4.8-10.8) Red Blood Count 4.79 M/UL (4.70-6.10) Hemoglobin 15.5 G/DL (14.2-18.0) Hematocrit 44.9 % (42.0-52.0) Mean Corpuscular Volume 94 FL (80-99) Mean Corpuscular Hemoglobin 32.3 PG (27.0-31.0) H Mean Corpuscular Hemoglobin Concent 34.5 G/DL (32.0-36.0) Red Cell Distribution Width 12.3 % (11.6-14.8) Platelet Count 200 K/UL (150-450) Mean Platelet Volume 7.7 FL (6.5-10.1) Neutrophils (%) (Auto) 53.7 % (45.0-75.0) Lymphocytes (%) (Auto) 37.3 % (20.0-45.0) Monocytes (%) (Auto) 6.3 % (1.0-10.0) Eosinophils (%) (Auto) 1.4 % (0.0-3.0) Basophils (%) (Auto) 1.3 % (0.0-2.0) Sodium Level 144 MMOL/L (136-145) Potassium Level 4.8 MMOL/L (3.5-5.1) Chloride Level 106 MMOL/L (98-107) Carbon Dioxide Level 31 MMOL/L (21-32) Anion Gap 7 mmol/L (5-15) Blood Urea Nitrogen 14 mg/dL (7-18) Creatinine 1.1 MG/DL (0.55-1.30) Estimat Glomerular Filtration Rate mL/min (>60) Glucose Level 110 MG/DL (74-106) H Calcium Level 9.0 MG/DL (8.5-10.1) Total Bilirubin 0.4 MG/DL (0.2-1.0) Aspartate Amino Transf (AST/SGOT) 17 U/L (15-37) Alanine Aminotransferase (ALT/SGPT) 36 U/L (12-78) Alkaline Phosphatase 82 U/L (46-116) Pro-B-Type Natriuretic Peptide 305 pg/mL (0-125) H Total Protein 7.3 G/DL (6.4-8.2) Albumin 3.6 G/DL (3.4-5.0) Globulin 3.7 g/dL Albumin/Globulin Ratio 1.0 (1.0-2.7) Intake and Output 11/08/19 11/09/19 19:00 07:00 Intake Total 480 ml Balance 480 ml Intake Oral 480 ml # Voids 2 Objective PHYSICAL EXAMINATION: GENERAL: The patient is a well-nourished and well-nourished male, in no apparent distress. HEENT: Eyes, pupils are equal and responsive to light and accommodation. Extraocular movements are intact. NECK: Supple without lymphadenopathy. CHEST: Lungs are clear to auscultation bilaterally without wheezes or rales. CARDIOVASCULAR: Regular rhythm and rate. S1 and S2 are normal without murmurs, rubs, or gallops. ABDOMEN: Soft, nontender, and nondistended. Positive bowel sounds. No evidence of hepatosplenomegaly. Currently, no rebound or guarding noted. EXTREMITIES: Negative for clubbing, cyanosis, or edema. RECTAL/GENITAL: Not performed. NEUROLOGIC: Cranial nerves II through XII are grossly intact without focal deficits. Motor strength is 5/5 bilaterally. Deep tendon reflexes are 2+ plantar. Assessment/Plan Assessment/Plan ASSESSMENT: This is a 74-year-old male. 1. Headache. 2. Ataxia. 3. Hypertension. 4. Hypertensive heart disease. 5. History of renal cell tumor, benign. 6. Chronic obstructive pulmonary disease. 7. Hypercholesterolemia. 8. Benign prostatic hypertrophy. 9. Hepatitis C, status post treatment in 2009. 10. Anxiety disorder. 11. Depression. 12. Sinusitis TREATMENT: 1. Right-sided headache/ataxia. An MRI of the brain is pending. A CT scan showed ethmoid sinus mucosal thickening. The patient has been started empirically on antibiotics for probable sinusitis. 2. Hypertensive heart disease. 3. Hypertension. Continue amlodipine as above. 4. Chronic obstructive pulmonary disease. Continue albuterol metered-dose inhaler as above. 5. Hypercholesterolemia. Continue atorvastatin as above. 6. Benign prostatic hypertrophy. Continue Flomax and finasteride as above. 7. Hepatitis C, status post treatment in 2009. 8. Anxiety/depression. Continue Lexapro as above. 9. ABX=Leonardo Juan MD Nov 09, 2019 17:05
[2019-11-09] MEDS: Levofloxacin 500mg tab ORAL SCH (17:42)
--- NOTE | 2019-11-09 19:39 | NUR ---
HAND-OFF: Report given to JOHN PAUL Gonzalez.
[2019-11-09 20:00] VITALS: BP 126/65
--- NOTE | 2019-11-09 20:00 | NUR ---
NURSE NOTE patient is in bed, awake, Ox4,and verbally responsive. Breathing even and unlabored, no acute distress noted. Call light within reach, bed is low and locked position. Will continue to monitor the pt.
[2019-11-09] MEDS: Tamsulosin 0.4mg cap ORAL SCH (21:21)
[2019-11-09] MEDS: Zolpidem 5mg tab ORAL PRN (21:21)
[2019-11-10] VITALS (7 sets, daily range): BP systolic 113–148; BP diastolic 65–84
--- NOTE | 2019-11-10 07:17 | NUR ---
NURSE NOTES: HAND-OFF: Report given to MARKOS Min.
--- NOTE | 2019-11-10 07:35 | NUR ---
NURSE NOTES: Received patient in bed, awake, alert, orientedx4, able to make needs known, IV site is clean, patent and intact. Patient can ambulate with steady gate. Denies of pain/discomfort. call light is within reach, bed is lowered, locked and alarm is on. Will continue to monitor for comfort and safety.
[2019-11-10 08:18] LABS: BASOPHILS % (AUTO) 0.9 % (0.0-2.0); EOSINOPHILS % (AUTO) 0.6 % (0.0-3.0); HEMATOCRIT 42.3 % (42.0-52.0); HEMOGLOBIN 14.8 G/DL (14.2-18.0); MEAN CORPUSCULAR VOLUME 93 FL (80-99); NEUTROPHILS % (AUTO) 61.4 % (45.0-75.0); PLATELET COUNT 200 K/UL (150-450); RED BLOOD COUNT 4.55 M/UL (4.70-6.10); RED CELL DISTRIBUTION WIDTH 12.3 % (11.6-14.8); WHITE BLOOD COUNT 9.2 K/UL (4.8-10.8)
[2019-11-10 08:38] LABS: ANION GAP 7 mmol/L (5-15); BLOOD UREA NITROGEN 16 mg/dL (7-18); CARBON DIOXIDE 31 MMOL/L (21-32); CHLORIDE 104 MMOL/L (98-107); CREATININE 1.4 MG/DL (0.55-1.30); POTASSIUM 4.2 MMOL/L (3.5-5.1); SODIUM 142 MMOL/L (136-145)
[2019-11-10] MEDS: Xarelto 10mg tab ORAL SCH (08:43)
[2019-11-10] MEDS: Docusate 100mg cap ORAL SCH ×2 (08:43→17:02)
[2019-11-10] MEDS: oxyCODONE 15mg IR tab ORAL PRN ×2 (08:49→21:05)
--- NOTE | 2019-11-10 09:04 | General Progress Note ---
Assessment/Plan Assessment/Plan: (1) Lumbar DDD (2) Lumbar Spondylosis (3) Lumbar Radiculopathy (4) Opioid Dependency Patient to be continued on Oxycodone. D/w Dr. Joseph and he concurred. Subjective Date patient seen: Nov 10, 2019 Time patient seen: 08:00 - am Allergies: Coded Allergies: No Known Allergies (Unverified , 10/27/12) Subjective Constitutional: Reports: no symptoms HEENT: Reports: no symptoms Cardiovascular: Reports: no symptoms Respiratory: Reports: no symptoms Gastrointestinal/Abdominal: Reports: no symptoms Genitourinary: Reports: no symptoms Neurologic/Psychiatric: Reports: no symptoms Endocrine: Reports: no symptoms Hematologic/Lymphatic: Reports: no symptoms Subjective Patient reports pain is unchanged and has been tolerated on the Oxycodone. Has no new complaints at his time. Is being seen by Neurologist due to headaches. Objective Last 24 Hour Vital Signs Date Time Temp Pulse Resp B/P (MAP) Pulse Ox O2 Delivery O2 Flow Rate FiO2 11/10/19 08:43 82 143/77 11/10/19 08:00 97.4 82 18 143/77 (99) 95 11/10/19 04:00 98.2 69 19 113/66 (82) 99 11/10/19 00:00 98.4 71 19 132/65 (87) 97 11/09/19 21:00 Room Air 11/09/19 20:00 98.5 75 19 126/65 (85) 98 11/09/19 16:00 97.6 80 19 138/90 (106) 98 11/09/19 12:00 98.1 77 20 143/86 (105) 97 11/09/19 09:36 70 131/74 Intake and Output 11/09/19 11/10/19 19:00 07:00 Intake Total 1200 ml Output Total 3 ml Balance 1200 ml -3 ml Intake Oral 1200 ml Output Urine Total 3 ml # Voids 4 Laboratory Tests 11/10/19 07:50: White Blood Count 9.2, Red Blood Count 4.55L, Hemoglobin 14.8, Hematocrit 42.3, Mean Corpuscular Volume 93, Mean Corpuscular Hemoglobin 32.4H, Mean Corpuscular Hemoglobin Concent 34.9, Red Cell Distribution Width 12.3, Platelet Count 200, Mean Platelet Volume 7.8, Neutrophils (%) (Auto) 61.4, Lymphocytes (%) (Auto) 28.0, Monocytes (%) (Auto) 9.0, Eosinophils (%) (Auto) 0.6, Basophils (%) (Auto ) 0.9, Sodium Level 142, Potassium Level 4.2, Chloride Level 104, Carbon Dioxide Level 31, Anion Gap 7, Blood Urea Nitrogen 16, Creatinine 1.4H, Estimat Glomerular Filtration Rate , Glucose Level 156H, Calcium Level 9.0 Height (Feet): 5 Height (Inches): 9.00 Weight (Pounds): 200 Objective General Appearance: no apparent distress, alert EENT: PERRL/EOMI Neck: non-tender, normal alignment Cardiovascular: normal rate, regular rhythm Respiratory/Chest: decreased breath sounds Abdomen: non tender, soft Edema: no edema noted Generalized Neurologic: abnormal gait, alert Skin: normal pigmentation Guy Sepulveda Nov 10, 2019 09:04
[2019-11-10] MEDS ORDERED: Gadavist 7.5mMol/7.5ml vial IV PRN ×2 (09:30)
[2019-11-10] MEDS ORDERED: Valproate Sodium INJ 1,000 MG in D5W 55 ML IV ONE ×2 (10:00→12:00)
--- NOTE | 2019-11-10 11:41 | Pulmonology Progress Note ---
Assessment/Plan Assessment/Plan ASSESSMENT Intractable headache, probably due to sinusitis Sinusitis Hypertensive heart disease COPD Hepatitis C, status post treatment Lumbar DDD BPH Anxiety and depression Low TSH RONI PLAN OF CARE MS floor CT head no acute IC pathology, right sided proptosis, no retrobulbar mass; ethmoid sinus mucosal thickening noted MRI of the brain no acute IC pathology Carotid unremarkable abx for sinusitis ESR WNL, TA ruled out CAST possibly due to sinusitis consider neuro eval - per primary team BP management with CCB pain management as per pain specialist recs continue Proscar check free T4 T3 fall precautions, PT eval and Rx creat up to 1.4 today from prior 1.4, give 1 L of fluid, monitor renal parameters, avoid nephrotoxics case discussed and evaluated by supervising physician Subjective Allergies: Coded Allergies: No Known Allergies (Unverified , 10/27/12) Subjective headache better but still there, R sided forehead no fevers, no chills creat up to 1.4 today Objective Last 24 Hour Vital Signs Date Time Temp Pulse Resp B/P (MAP) Pulse Ox O2 Delivery O2 Flow Rate FiO2 11/10/19 08:43 82 143/77 11/10/19 08:00 97.4 82 18 143/77 (99) 95 11/10/19 04:00 98.2 69 19 113/66 (82) 99 11/10/19 00:00 98.4 71 19 132/65 (87) 97 11/09/19 21:00 Room Air 11/09/19 20:00 98.5 75 19 126/65 (85) 98 11/09/19 16:00 97.6 80 19 138/90 (106) 98 11/09/19 12:00 98.1 77 20 143/86 (105) 97 Intake and Output 11/09/19 11/10/19 19:00 07:00 Intake Total 1200 ml Output Total 3 ml Balance 1200 ml -3 ml Intake Oral 1200 ml Output Urine Total 3 ml # Voids 4 General Appearance: no acute distress, other - AA male HEENT: normocephalic, atraumatic, anicteric, mucous membranes moist, other - pressure on palpation of maxillary sinuses Respiratory/Chest: lungs clear, no respiratory distress, no accessory muscle use Cardiovascular: normal rate, no JVD Abdomen: normal bowel sounds, soft, non tender Extremities: no edema, pedal pulses normal Neurologic/Psychiatric: abnormal gait - unsteady , alert, oriented x 3, responsive Musculoskeletal: normal muscle bulk Laboratory Tests 11/10/19 07:50: White Blood Count 9.2, Red Blood Count 4.55L, Hemoglobin 14.8, Hematocrit 42.3, Mean Corpuscular Volume 93, Mean Corpuscular Hemoglobin 32.4H, Mean Corpuscular Hemoglobin Concent 34.9, Red Cell Distribution Width 12.3, Platelet Count 200, Mean Platelet Volume 7.8, Neutrophils (%) (Auto) 61.4, Lymphocytes (%) (Auto) 28.0, Monocytes (%) (Auto) 9.0, Eosinophils (%) (Auto) 0.6, Basophils (%) (Auto ) 0.9, Sodium Level 142, Potassium Level 4.2, Chloride Level 104, Carbon Dioxide Level 31, Anion Gap 7, Blood Urea Nitrogen 16, Creatinine 1.4H, Estimat Glomerular Filtration Rate , Glucose Level 156H, Calcium Level 9.0, C-Reactive Protein, Quantitative 0.5 Current Medications Medications (Trade) Dose Ordered Sig/Felipe Route PRN Reason Start Time Stop Time Status Last Admin Dose Admin Acetaminophen (Tylenol) 650 mg Q4H PRN ORAL fever 11/08/19 11:45 12/06/19 11:44 Amlodipine Besylate (Norvasc) 5 mg DAILY ORAL 11/09/19 09:00 12/07/19 08:59 11/10/19 08:43 Colchicine (Colchicine) 0.6 mg DAILY ORAL 11/09/19 09:00 12/07/19 08:59 11/10/19 08:42 Dextrose (Dextrose 50%) 25 ml Q30M PRN IV Hypoglycemia 11/08/19 12:00 12/06/19 16:59 Dextrose (Dextrose 50%) 50 ml Q30M PRN IV Hypoglycemia 11/08/19 12:00 12/06/19 16:59 Divalproex Sodium (Depakote) 500 mg EVERY 12 HOURS ORAL 11/11/19 21:00 12/11/19 20:59 Docusate Sodium (Colace) 100 mg TWICE A DAY ORAL 11/08/19 18:00 12/08/19 17:59 11/10/19 08:43 Escitalopram Oxalate (Lexapro) 10 mg DAILY ORAL 11/09/19 09:00 12/07/19 08:59 11/10/19 08:43 Finasteride (Proscar) 5 mg DAILY ORAL 11/09/19 09:00 12/07/19 08:59 11/10/19 08:43 Gadobutrol (Gadavist) 7.5 mmol NOW PRN IV Radiology Procedure 11/08/19 11:45 11/10/19 11:44 Gadobutrol (Gadavist) 7.5 mmol NOW PRN IV Radiology Procedure 11/10/19 09:30 11/13/19 09:21 Gadobutrol (Gadavist) 7.5 mmol NOW PRN IV Radiology Procedure 11/10/19 09:30 11/14/19 09:17 Levofloxacin (Levaquin) 500 mg DAILY@1800 ORAL 11/09/19 18:00 11/14/19 23:59 11/09/19 17:42 Mirtazapine (Remeron) 7.5 mg BEDTIME ORAL 11/08/19 21:00 12/06/19 20:59 11/09/19 21:21 Oxycodone HCl (Roxicodone) 30 mg Q6H PRN ORAL For Pain 11/08/19 11:45 11/13/19 11:44 11/10/19 08:49 Polyethylene Glycol (Miralax) 17 gm HSPRN PRN ORAL Constipation 11/08/19 11:45 12/06/19 11:44 11/08/19 17:24 Rivaroxaban (Xarelto) 10 mg DAILY ORAL 11/09/19 09:00 12/07/19 08:59 11/10/19 08:43 Tamsulosin HCl (Flomax) 0.4 mg QHS ORAL 11/08/19 21:00 12/06/19 20:59 11/09/19 21:21 Valproate Sodium 1000 mg/Dextrose 65 ml @ 32.5 mls/hr ONCE ONCE IV 11/10/19 10:00 11/10/19 11:59 11/10/19 11:29 Zolpidem Tartrate (Ambien) 5 mg HSPRN PRN ORAL Insomnia 11/08/19 17:00 11/13/19 16:59 11/09/19 21:21 Renetta Tucker B[employer]QUET[employer] OPERATOR Nov 10, 2019 11:41
--- NOTE | 2019-11-10 13:04 | Internal Med Progress Note ---
Subjective Date of Service: Nov 10, 2019 Physician Name Leonardo Palencia Attending Physician Jaylen Lara MD Current Medications Medications (Trade) Dose Ordered Sig/Felipe Route PRN Reason Start Time Stop Time Status Last Admin Dose Admin Acetaminophen (Tylenol) 650 mg Q4H PRN ORAL fever 11/08/19 11:45 12/06/19 11:44 Amlodipine Besylate (Norvasc) 5 mg DAILY ORAL 11/09/19 09:00 12/07/19 08:59 11/10/19 08:43 Colchicine (Colchicine) 0.6 mg DAILY ORAL 11/09/19 09:00 12/07/19 08:59 11/10/19 08:42 Dextrose (Dextrose 50%) 25 ml Q30M PRN IV Hypoglycemia 11/08/19 12:00 12/06/19 16:59 Dextrose (Dextrose 50%) 50 ml Q30M PRN IV Hypoglycemia 11/08/19 12:00 12/06/19 16:59 Divalproex Sodium (Depakote) 500 mg EVERY 12 HOURS ORAL 11/11/19 21:00 12/11/19 20:59 Docusate Sodium (Colace) 100 mg TWICE A DAY ORAL 11/08/19 18:00 12/08/19 17:59 11/10/19 08:43 Escitalopram Oxalate (Lexapro) 10 mg DAILY ORAL 11/09/19 09:00 12/07/19 08:59 11/10/19 08:43 Finasteride (Proscar) 5 mg DAILY ORAL 11/09/19 09:00 12/07/19 08:59 11/10/19 08:43 Gadobutrol (Gadavist) 7.5 mmol NOW PRN IV Radiology Procedure 11/10/19 09:30 11/13/19 09:21 Gadobutrol (Gadavist) 7.5 mmol NOW PRN IV Radiology Procedure 11/10/19 09:30 11/14/19 09:17 Levofloxacin (Levaquin) 500 mg DAILY@1800 ORAL 11/09/19 18:00 11/14/19 23:59 11/09/19 17:42 Mirtazapine (Remeron) 7.5 mg BEDTIME ORAL 11/08/19 21:00 12/06/19 20:59 11/09/19 21:21 Oxycodone HCl (Roxicodone) 30 mg Q6H PRN ORAL For Pain 11/08/19 11:45 11/13/19 11:44 11/10/19 08:49 Polyethylene Glycol (Miralax) 17 gm HSPRN PRN ORAL Constipation 11/08/19 11:45 12/06/19 11:44 11/08/19 17:24 Rivaroxaban (Xarelto) 10 mg DAILY ORAL 11/09/19 09:00 12/07/19 08:59 11/10/19 08:43 Sodium Chloride 1,000 ml @ 75 mls/hr [id number] ONCE IV 11/10/19 12:00 11/11/19 01:19 11/10/19 12:18 Tamsulosin HCl (Flomax) 0.4 mg QHS ORAL 11/08/19 21:00 12/06/19 20:59 11/09/19 21:21 Zolpidem Tartrate (Ambien) 5 mg HSPRN PRN ORAL Insomnia 11/08/19 17:00 11/13/19 16:59 11/09/19 21:21 Allergies: Coded Allergies: No Known Allergies (Unverified , 10/27/12) ROS Limited/Unobtainable: No Constitutional: Reports: no symptoms HEENT: Reports: no symptoms Cardiovascular: Reports: no symptoms Respiratory: Reports: no symptoms Gastrointestinal/Abdominal: Reports: no symptoms Genitourinary: Reports: no symptoms Neurologic/Psychiatric: Reports: no symptoms Subjective 74 YO M admitted with headache. Now sinusitis. Cover for Lashawn Blanchard-DR Lara. Objective Last Vital Signs Date Time Temp Pulse Resp B/P (MAP) Pulse Ox O2 Delivery O2 Flow Rate FiO2 11/10/19 12:00 97.9 66 18 138/75 (96) 97 11/09/19 21:00 Room Air Laboratory Tests Test 11/10/19 07:50 White Blood Count 9.2 K/UL (4.8-10.8) Red Blood Count 4.55 M/UL (4.70-6.10) L Hemoglobin 14.8 G/DL (14.2-18.0) Hematocrit 42.3 % (42.0-52.0) Mean Corpuscular Volume 93 FL (80-99) Mean Corpuscular Hemoglobin 32.4 PG (27.0-31.0) H Mean Corpuscular Hemoglobin Concent 34.9 G/DL (32.0-36.0) Red Cell Distribution Width 12.3 % (11.6-14.8) Platelet Count 200 K/UL (150-450) Mean Platelet Volume 7.8 FL (6.5-10.1) Neutrophils (%) (Auto) 61.4 % (45.0-75.0) Lymphocytes (%) (Auto) 28.0 % (20.0-45.0) Monocytes (%) (Auto) 9.0 % (1.0-10.0) Eosinophils (%) (Auto) 0.6 % (0.0-3.0) Basophils (%) (Auto) 0.9 % (0.0-2.0) Sodium Level 142 MMOL/L (136-145) Potassium Level 4.2 MMOL/L (3.5-5.1) Chloride Level 104 MMOL/L (98-107) Carbon Dioxide Level 31 MMOL/L (21-32) Anion Gap 7 mmol/L (5-15) Blood Urea Nitrogen 16 mg/dL (7-18) Creatinine 1.4 MG/DL (0.55-1.30) H Estimat Glomerular Filtration Rate mL/min (>60) Glucose Level 156 MG/DL (74-106) H Calcium Level 9.0 MG/DL (8.5-10.1) C-Reactive Protein, Quantitative 0.5 mg/dL (0.00-0.90) Intake and Output 11/09/19 11/10/19 19:00 07:00 Intake Total 1200 ml Output Total 3 ml Balance 1200 ml -3 ml Intake Oral 1200 ml Output Urine Total 3 ml # Voids 4 Objective PHYSICAL EXAMINATION: GENERAL: The patient is a well-nourished and well-nourished male, in no apparent distress. HEENT: Eyes, pupils are equal and responsive to light and accommodation. Extraocular movements are intact. NECK: Supple without lymphadenopathy. CHEST: Lungs are clear to auscultation bilaterally without wheezes or rales. CARDIOVASCULAR: Regular rhythm and rate. S1 and S2 are normal without murmurs, rubs, or gallops. ABDOMEN: Soft, nontender, and nondistended. Positive bowel sounds. No evidence of hepatosplenomegaly. Currently, no rebound or guarding noted. EXTREMITIES: Negative for clubbing, cyanosis, or edema. RECTAL/GENITAL: Not performed. NEUROLOGIC: Cranial nerves II through XII are grossly intact without focal deficits. Motor strength is 5/5 bilaterally. Deep tendon reflexes are 2+ plantar. Assessment/Plan Assessment/Plan ASSESSMENT: This is a 74-year-old male. 1. Headache. 2. Ataxia. 3. Hypertension. 4. Hypertensive heart disease. 5. History of renal cell tumor, benign. 6. Chronic obstructive pulmonary disease. 7. Hypercholesterolemia. 8. Benign prostatic hypertrophy. 9. Hepatitis C, status post treatment in 2009. 10. Anxiety disorder. 11. Depression. 12. Sinusitis TREATMENT: 1. Right-sided headache/ataxia. An MRI of the brain is pending. A CT scan showed ethmoid sinus mucosal thickening. The patient has been started empirically on antibiotics for probable sinusitis. 2. Hypertensive heart disease. 3. Hypertension. Continue amlodipine as above. 4. Chronic obstructive pulmonary disease. Continue albuterol metered-dose inhaler as above. 5. Hypercholesterolemia. Continue atorvastatin as above. 6. Benign prostatic hypertrophy. Continue Flomax and finasteride as above. 7. Hepatitis C, status post treatment in 2009. 8. Anxiety/depression. Continue Lexapro as above. 9. ABX=Leonardo Juan MD Nov 10, 2019 13:04
--- NOTE | 2019-11-10 13:54 | NUR ---
HAND-OFF: Report given to Louie for MRI. No c/o pain/discomfort noted.
--- NOTE | 2019-11-10 15:15 | NUR ---
MRA BRAIN AND MRI ORBITS W/WO COMPLETED. PT DID NOT WISH TO CONTINUE ON TO PERFORM MRA NECK DUE TO BEING IN SCANNER TOO LONG AND NECK PAIN. I'LL ASK THE PT TOMORROW IF HE WANTS TO TRY AGAIN. KALEB 15:17
--- NOTE | 2019-11-10 15:15 | NUR ---
NURSE NOTES: PATIENT IS BACK TO THE ROOM. WILL CONT TO MONITOR.
--- NOTE | 2019-11-10 16:27 | NUR ---
CASE MANAGEMENT:REVIEW 11/10/2019 SI: INTRACTABLE HEADACHE . HYPERTENSION . COPD HX: HEP C (+) ON TREATMENT 98.0 73 18 132/82 98% ON RA CREAT 1.4 BG 156 IS: IV DEPACON X1 LEVAQUIN PO QD IVF NS @75ML/HR NORVASC PO QD PROSCAR PO QD FLOMAX PO QHS : 4E MED SURG UNIT PLAN: REPEAT MRI HEAD/ NECK- GET ORBITS; CC: RIGHT SIDED HEADACHE /ATAXIA SEIZURE PRECAUTION POC PER NEUROLOGY NEURO CONSULT
[2019-11-10] MEDS: Levofloxacin 500mg tab ORAL SCH (17:03)
--- NOTE | 2019-11-10 19:03 | NUR ---
HAND-OFF: Report given to Talha.
[2019-11-10] MEDS: Zolpidem 5mg tab ORAL PRN (21:04)
[2019-11-10] MEDS: Tamsulosin 0.4mg cap ORAL SCH (21:04)
[2019-11-11 04:00] VITALS: BP 143/75
--- NOTE | 2019-11-11 07:17 | NUR ---
NURSE NOTES: Received patient in bed, awake, alert, orientedx4, able to verbalize needs. having breakfast in bed. Found IVF not connected to the patient. IV site is clean, patent and intact. Patient able to ambulate, steady gait with a minimal assistance. Denies of pain/discomfort. call light is within reach, bed is lowest position, locked and alarm engaged. Will continue to monitor for comfort and safety.
--- NOTE | 2019-11-11 07:24 | NUR ---
HAND-OFF: Report given to MARKOS Min.
[2019-11-11 08:00] VITALS: BP 139/74
[2019-11-11] MEDS: Xarelto 10mg tab ORAL SCH (08:24)
[2019-11-11] MEDS: Docusate 100mg cap ORAL SCH ×2 (08:24→17:18)
[2019-11-11 08:36] LABS: BASOPHILS % (AUTO) 1.3 % (0.0-2.0); EOSINOPHILS % (AUTO) 1.3 % (0.0-3.0); HEMATOCRIT 44.1 % (42.0-52.0); HEMOGLOBIN 15.3 G/DL (14.2-18.0); LYMPHOCYTES % (AUTO) 32.1 % (20.0-45.0); MEAN CORPUSCULAR VOLUME 94 FL (80-99); MONOCYTES % (AUTO) 5.4 % (1.0-10.0); NEUTROPHILS % (AUTO) 59.9 % (45.0-75.0); PLATELET COUNT 196 K/UL (150-450); RED BLOOD COUNT 4.71 M/UL (4.70-6.10); RED CELL DISTRIBUTION WIDTH 11.7 % (11.6-14.8); WHITE BLOOD COUNT 8.6 K/UL (4.8-10.8)
[2019-11-11 09:07] LABS: ANION GAP 3 mmol/L (5-15); BLOOD UREA NITROGEN 19 mg/dL (7-18); CARBON DIOXIDE 35 MMOL/L (21-32); CHLORIDE 103 MMOL/L (98-107); CREATININE 1.4 MG/DL (0.55-1.30); POTASSIUM 4.4 MMOL/L (3.5-5.1); SODIUM 141 MMOL/L (136-145)
--- NOTE | 2019-11-11 09:33 | Diagnostic Imaging Report ---
Indication: Headache Technique: 3-D [id number] of the brain Comparison: None Findings: No significant stenosis, vascular malformation, or aneurysm is identified. Flow-related enhancement of the major intracranial arteries demonstrated including the anterior, middle, and posterior cerebral arteries. Right posterior communicating artery demonstrated. Impression: Negative MRA of the brain
--- NOTE | 2019-11-11 10:43 | General Progress Note ---
Assessment/Plan Assessment/Plan: (1) Lumbar DDD (2) Lumbar Spondylosis (3) Lumbar Radiculopathy (4) Opioid Dependency Patient to be continued on Oxycodone. D/w Dr. Joseph and he concurred. Subjective Date patient seen: Nov 11, 2019 Time patient seen: 09:15 - am Allergies: Coded Allergies: No Known Allergies (Unverified , 10/27/12) Subjective Constitutional: Reports: no symptoms HEENT: Reports: no symptoms Cardiovascular: Reports: no symptoms Respiratory: Reports: no symptoms Gastrointestinal/Abdominal: Reports: no symptoms Genitourinary: Reports: no symptoms Neurologic/Psychiatric: Reports: no symptoms Endocrine: Reports: no symptoms Hematologic/Lymphatic: Reports: no symptoms Subjective Patient is in bed and pain has been tolerated on the Oxycodone. MRI of head and neck MRA was performed as per neurologist due to headache and dizziness. Waiting to f/u with the neurologist to discuss results. Objective Last 24 Hour Vital Signs Date Time Temp Pulse Resp B/P (MAP) Pulse Ox O2 Delivery O2 Flow Rate FiO2 11/11/19 08:24 73 139/74 11/11/19 08:00 98.3 73 18 139/74 (95) 98 11/11/19 04:00 98.3 71 18 143/75 (97) 96 11/10/19 23:53 98.0 65 18 146/73 (97) 97 11/10/19 21:00 Room Air 11/10/19 20:00 98.5 68 18 148/84 (105) 97 11/10/19 15:58 98.0 73 18 133/82 (99) 98 11/10/19 12:00 97.9 66 18 138/75 (96) 97 Intake and Output 11/10/19 11/11/19 19:00 07:00 Intake Total 1065.0 ml 1035 ml Balance 1065.0 ml 1035 ml Intake Oral 1000 ml 360 ml IV Total 65.0 ml 675 ml # Voids 4 2 Laboratory Tests 11/11/19 08:20: White Blood Count 8.6, Red Blood Count 4.71, Hemoglobin 15.3, Hematocrit 44.1, Mean Corpuscular Volume 94, Mean Corpuscular Hemoglobin 32.5H, Mean Corpuscular Hemoglobin Concent 34.7, Red Cell Distribution Width 11.7, Platelet Count 196, Mean Platelet Volume 7.9, Neutrophils (%) (Auto) 59.9, Lymphocytes (%) (Auto) 32.1, Monocytes (%) (Auto) 5.4, Eosinophils (%) (Auto) 1.3, Basophils (%) (Auto ) 1.3, Sodium Level 141, Potassium Level 4.4, Chloride Level 103, Carbon Dioxide Level 35H, Anion Gap 3L, Blood Urea Nitrogen 19H, Creatinine 1.4H, Estimat Glomerular Filtration Rate , Glucose Level 158H, Hemoglobin A1c 6.8H, Calcium Level 9.0, Free Thyroxine 0.83, Free Triiodothyronine 2.6 Height (Feet): 5 Height (Inches): 9.00 Weight (Pounds): 200 Objective General Appearance: no apparent distress, alert EENT: PERRL/EOMI Neck: non-tender, normal alignment Cardiovascular: normal rate, regular rhythm Respiratory/Chest: decreased breath sounds Abdomen: non tender, soft Edema: no edema noted Generalized Neurologic: abnormal gait, alert Skin: normal pigmentation Guy Sepulveda Nov 11, 2019 10:43
[2019-11-11 12:00] VITALS: BP 136/76
--- NOTE | 2019-11-11 12:10 | NUR ---
NURSE NOTES: Received patient in bed,patient awake, alert, orientedx4, no sign of distress, IVF patent and intact infusing well, ambulatory with minimal assist, denies pain/discomfort.on fall precaution, call light is within reach, bed is lowest position, locked and alarm engaged. Will continue to monitor for comfort and safety.
--- NOTE | 2019-11-11 12:11 | NUR ---
HAND-OFF: Report given to chris.
--- NOTE | 2019-11-11 13:36 | Pulmonology Progress Note ---
Assessment/Plan Problems: (1) Intractable headache (2) Anxiety disorder (3) Hepatitis C (4) COPD (chronic obstructive pulmonary disease) (5) Hypertensive hypertrophic cardiomyopathy, without heart failure (6) HTN (hypertension) Assessment/Plan neuro evaluation check ESR symptomatic treatment respiratory treatment monitor BP Subjective ROS Limited/Unobtainable: Yes Interval Events: late note 11/09 still c/o right temporal pain Allergies: Coded Allergies: No Known Allergies (Unverified , 10/27/12) Objective Last 24 Hour Vital Signs Date Time Temp Pulse Resp B/P (MAP) Pulse Ox O2 Delivery O2 Flow Rate FiO2 11/11/19 12:30 Room Air 11/11/19 12:00 98.2 70 17 136/76 (96) 99 11/11/19 08:24 73 139/74 11/11/19 08:00 98.3 73 18 139/74 (95) 98 11/11/19 04:00 98.3 71 18 143/75 (97) 96 11/10/19 23:53 98.0 65 18 146/73 (97) 97 11/10/19 21:00 Room Air 11/10/19 20:00 98.5 68 18 148/84 (105) 97 11/10/19 15:58 98.0 73 18 133/82 (99) 98 Intake and Output 11/10/19 11/11/19 19:00 07:00 Intake Total 1065.0 ml 1035 ml Balance 1065.0 ml 1035 ml Intake Oral 1000 ml 360 ml IV Total 65.0 ml 675 ml # Voids 4 2 General Appearance: WD/WN HEENT: normocephalic, atraumatic Respiratory/Chest: chest wall non-tender Cardiovascular: normal peripheral pulses, normal rate Abdomen: normal bowel sounds, soft, non tender Genitourinary: normal external genitalia Extremities: no cyanosis Skin: no rash Neurologic/Psychiatric: director of kids II-XII grossly normal Laboratory Tests 11/11/19 08:20: White Blood Count 8.6, Red Blood Count 4.71, Hemoglobin 15.3, Hematocrit 44.1, Mean Corpuscular Volume 94, Mean Corpuscular Hemoglobin 32.5H, Mean Corpuscular Hemoglobin Concent 34.7, Red Cell Distribution Width 11.7, Platelet Count 196, Mean Platelet Volume 7.9, Neutrophils (%) (Auto) 59.9, Lymphocytes (%) (Auto) 32.1, Monocytes (%) (Auto) 5.4, Eosinophils (%) (Auto) 1.3, Basophils (%) (Auto ) 1.3, Sodium Level 141, Potassium Level 4.4, Chloride Level 103, Carbon Dioxide Level 35H, Anion Gap 3L, Blood Urea Nitrogen 19H, Creatinine 1.4H, Estimat Glomerular Filtration Rate , Glucose Level 158H, Hemoglobin A1c 6.8H, Calcium Level 9.0, Free Thyroxine 0.83, Free Triiodothyronine 2.6 Current Medications Medications (Trade) Dose Ordered Sig/Felipe Route PRN Reason Start Time Stop Time Status Last Admin Dose Admin Acetaminophen (Tylenol) 650 mg Q4H PRN ORAL fever 11/08/19 11:45 12/06/19 11:44 Amlodipine Besylate (Norvasc) 5 mg DAILY ORAL 11/09/19 09:00 12/07/19 08:59 11/11/19 08:24 Colchicine (Colchicine) 0.6 mg DAILY ORAL 11/09/19 09:00 12/07/19 08:59 11/11/19 08:24 Dextrose (Dextrose 50%) 25 ml Q30M PRN IV Hypoglycemia 11/08/19 12:00 12/06/19 16:59 Dextrose (Dextrose 50%) 50 ml Q30M PRN IV Hypoglycemia 11/08/19 12:00 12/06/19 16:59 Divalproex Sodium (Depakote) 500 mg EVERY 12 HOURS ORAL 11/11/19 21:00 12/11/19 20:59 Docusate Sodium (Colace) 100 mg TWICE A DAY ORAL 11/08/19 18:00 12/08/19 17:59 11/11/19 08:24 Escitalopram Oxalate (Lexapro) 10 mg DAILY ORAL 11/09/19 09:00 12/07/19 08:59 11/11/19 08:24 Finasteride (Proscar) 5 mg DAILY ORAL 11/09/19 09:00 12/07/19 08:59 11/11/19 08:24 Gadobutrol (Gadavist) 7.5 mmol NOW PRN IV Radiology Procedure 11/10/19 09:30 11/13/19 09:21 Gadobutrol (Gadavist) 7.5 mmol NOW PRN IV Radiology Procedure 11/10/19 09:30 11/14/19 09:17 Levofloxacin (Levaquin) 500 mg DAILY@1800 ORAL 11/09/19 18:00 11/14/19 23:59 11/10/19 17:03 Mirtazapine (Remeron) 7.5 mg BEDTIME ORAL 11/08/19 21:00 12/06/19 20:59 11/10/19 21:04 Oxycodone HCl (Roxicodone) 30 mg Q6H PRN ORAL For Pain 11/08/19 11:45 11/13/19 11:44 11/10/19 21:05 Polyethylene Glycol (Miralax) 17 gm HSPRN PRN ORAL Constipation 11/08/19 11:45 12/06/19 11:44 11/08/19 17:24 Rivaroxaban (Xarelto) 10 mg DAILY ORAL 11/09/19 09:00 12/07/19 08:59 11/11/19 08:24 Tamsulosin HCl (Flomax) 0.4 mg QHS ORAL 11/08/19 21:00 12/06/19 20:59 11/10/19 21:04 Zolpidem Tartrate (Ambien) 5 mg HSPRN PRN ORAL Insomnia 11/08/19 17:00 11/13/19 16:59 11/09/19 21:21 Susy Morse MD Nov 11, 2019 13:36
--- NOTE | 2019-11-11 13:37 | Pulmonology Progress Note ---
Assessment/Plan Problems: (1) Intractable headache (2) Anxiety disorder (3) Hepatitis C (4) COPD (chronic obstructive pulmonary disease) (5) Hypertensive hypertrophic cardiomyopathy, without heart failure (6) HTN (hypertension) Assessment/Plan neuro evaluation pending seen by pain management ESR is normal symptomatic treatment respiratory treatment monitor BP Subjective ROS Limited/Unobtainable: No Constitutional: Reports: no symptoms HEENT: Repors: no symptoms Allergies: Coded Allergies: No Known Allergies (Unverified , 10/27/12) Objective Last 24 Hour Vital Signs Date Time Temp Pulse Resp B/P (MAP) Pulse Ox O2 Delivery O2 Flow Rate FiO2 11/11/19 12:30 Room Air 11/11/19 12:00 98.2 70 17 136/76 (96) 99 11/11/19 08:24 73 139/74 11/11/19 08:00 98.3 73 18 139/74 (95) 98 11/11/19 04:00 98.3 71 18 143/75 (97) 96 11/10/19 23:53 98.0 65 18 146/73 (97) 97 11/10/19 21:00 Room Air 11/10/19 20:00 98.5 68 18 148/84 (105) 97 11/10/19 15:58 98.0 73 18 133/82 (99) 98 Intake and Output 11/10/19 11/11/19 19:00 07:00 Intake Total 1065.0 ml 1035 ml Balance 1065.0 ml 1035 ml Intake Oral 1000 ml 360 ml IV Total 65.0 ml 675 ml # Voids 4 2 General Appearance: WD/WN HEENT: normocephalic, atraumatic Respiratory/Chest: chest wall non-tender, lungs clear Abdomen: normal bowel sounds, soft, non tender Skin: no rash Laboratory Tests 11/11/19 08:20: White Blood Count 8.6, Red Blood Count 4.71, Hemoglobin 15.3, Hematocrit 44.1, Mean Corpuscular Volume 94, Mean Corpuscular Hemoglobin 32.5H, Mean Corpuscular Hemoglobin Concent 34.7, Red Cell Distribution Width 11.7, Platelet Count 196, Mean Platelet Volume 7.9, Neutrophils (%) (Auto) 59.9, Lymphocytes (%) (Auto) 32.1, Monocytes (%) (Auto) 5.4, Eosinophils (%) (Auto) 1.3, Basophils (%) (Auto ) 1.3, Sodium Level 141, Potassium Level 4.4, Chloride Level 103, Carbon Dioxide Level 35H, Anion Gap 3L, Blood Urea Nitrogen 19H, Creatinine 1.4H, Estimat Glomerular Filtration Rate , Glucose Level 158H, Hemoglobin A1c 6.8H, Calcium Level 9.0, Free Thyroxine 0.83, Free Triiodothyronine 2.6 Current Medications Medications (Trade) Dose Ordered Sig/Felipe Route PRN Reason Start Time Stop Time Status Last Admin Dose Admin Acetaminophen (Tylenol) 650 mg Q4H PRN ORAL fever 11/08/19 11:45 12/06/19 11:44 Amlodipine Besylate (Norvasc) 5 mg DAILY ORAL 11/09/19 09:00 12/07/19 08:59 11/11/19 08:24 Colchicine (Colchicine) 0.6 mg DAILY ORAL 11/09/19 09:00 12/07/19 08:59 11/11/19 08:24 Dextrose (Dextrose 50%) 25 ml Q30M PRN IV Hypoglycemia 11/08/19 12:00 12/06/19 16:59 Dextrose (Dextrose 50%) 50 ml Q30M PRN IV Hypoglycemia 11/08/19 12:00 12/06/19 16:59 Divalproex Sodium (Depakote) 500 mg EVERY 12 HOURS ORAL 11/11/19 21:00 12/11/19 20:59 Docusate Sodium (Colace) 100 mg TWICE A DAY ORAL 11/08/19 18:00 12/08/19 17:59 11/11/19 08:24 Escitalopram Oxalate (Lexapro) 10 mg DAILY ORAL 11/09/19 09:00 12/07/19 08:59 11/11/19 08:24 Finasteride (Proscar) 5 mg DAILY ORAL 11/09/19 09:00 12/07/19 08:59 11/11/19 08:24 Gadobutrol (Gadavist) 7.5 mmol NOW PRN IV Radiology Procedure 11/10/19 09:30 11/13/19 09:21 Gadobutrol (Gadavist) 7.5 mmol NOW PRN IV Radiology Procedure 11/10/19 09:30 11/14/19 09:17 Levofloxacin (Levaquin) 500 mg DAILY@1800 ORAL 11/09/19 18:00 11/14/19 23:59 11/10/19 17:03 Mirtazapine (Remeron) 7.5 mg BEDTIME ORAL 11/08/19 21:00 12/06/19 20:59 11/10/19 21:04 Oxycodone HCl (Roxicodone) 30 mg Q6H PRN ORAL For Pain 11/08/19 11:45 11/13/19 11:44 11/10/19 21:05 Polyethylene Glycol (Miralax) 17 gm HSPRN PRN ORAL Constipation 11/08/19 11:45 12/06/19 11:44 11/08/19 17:24 Rivaroxaban (Xarelto) 10 mg DAILY ORAL 11/09/19 09:00 12/07/19 08:59 11/11/19 08:24 Tamsulosin HCl (Flomax) 0.4 mg QHS ORAL 11/08/19 21:00 12/06/19 20:59 11/10/19 21:04 Zolpidem Tartrate (Ambien) 5 mg HSPRN PRN ORAL Insomnia 11/08/19 17:00 11/13/19 16:59 11/09/19 21:21 Susy Morse MD Nov 11, 2019 13:37
--- NOTE | 2019-11-11 14:01 | NUR ---
CASE MANAGEMENT:REVIEW 11/11/2019 SI: INTRACTABLE HEADACHE . HYPERTENSION . COPD HX: HEP C (+) ON TREATMENT 98.2 70 17 136/76 99% ON RA CO2 35 ANION GAP 3 BUN 19 CREAT 1.4 BG 158 HA1C 6.8 IS: LEVAQUIN PO QD IVF NS @75ML/HR NORVASC PO QD PROSCAR PO QD FLOMAX PO QHS COLCHICINE PO QD : 4E MED SURG UNIT PLAN: PATIENT STILL C/O HEADACHE AND DIZZINESS NEURO EVALUATION DC IVF REPEAT MRI HEAD/ NECK- GET ORBITS; CC: RIGHT SIDED HEADACHE /ATAXIA SEIZURE PRECAUTION POC PER NEUROLOGY NEURO CONSULT Addendum: 11/11/19 at 1435 by JARON BLUM LVN PATIENT SEEN BY NEURO PATIENT STILL CC DIZZY AND HEADACHE WHEN MOVING PATIENT REQUESTING OPHTHALMOLOGY CONSULT
--- NOTE | 2019-11-11 14:08 | Diagnostic Imaging Report ---
Indication: Syncope Technique: Study was performed in a 1.5 Lacie magnet. Gadolinium-enhanced MR angiography of the extracranial portions of both carotid arteries performed from the thoracic arch to the skull base. Maximum intensity projection images displayed in different projections. Comparison: None Findings: Right carotid: No significant carotid stenosis is identified. Left carotid: No significant stenosis is identified. Vertebral arteries below the skull base appear unremarkable. The origin of the right vertebral artery is not well seen. The aortic arch vessels are seen well on this examination. The innominate artery, left common carotid artery share a common origin. The left subclavian artery appears patent. IMPRESSION: No evidence of extracranial carotid or vertebral artery stenosis. One caveat: The origin of the right vertebral artery is not satisfactorily seen.
--- NOTE | 2019-11-11 14:16 | Diagnostic Imaging Report ---
Indication: Right thigh pain. Headache Technique: Orbits were imaged in a 1.5 Lacie magnet. Sequences obtained include multiplanar T1 FSE, T2 FSE with fat saturation. Pre and post Gadolinium-enhanced axial and coronal T1 FSE obtained also. Comparison: None The orbits appear symmetric. The optic nerves appear normal without differential enhancement or optic neuritis. Optic chiasm is unremarkable. There is no suprasellar mass. Visualized part of the sella is unremarkable. The orbital fat appears normal in signal and homogeneous. Extraocular muscles and globes are normal. There is mucosal thickening within the ethmoid sinus. The area of the cavernous sinus enhances normally. Flow voids demonstrated within the intracranial portions of the internal carotid arteries. There is some motion on the post gadolinium sequences particularly the coronal sequence. IMPRESSION: Negative MRI of the orbits. Somewhat limited evaluation of the post gadolinium sequences due to motion. Sinusitis
--- NOTE | 2019-11-11 15:45 | Progress Note ---
DATE: 11/11/2019 SUBJECTIVE: The patient is doing better. He is eating. His headache has been less. Depakote 1000 mg yesterday and is on 500 mg p.o. b.i.d. The patient also got MRIs yesterday; however, the reports are not available. PHYSICAL EXAMINATION: VITAL SIGNS: Temperature is 98.3 degrees, pulse is 73 regular, blood pressure is 139/74, respiratory rate is 18. MENTAL STATUS: His mental status is intact. IMPRESSION: Differential diagnosis in this patient is status migrainosus, paroxysmal hemicrania, cerebrovascular disease in the territory of the middle cerebral artery, glaucoma. The patient will be treated with Depakote 500 mg p.o. b.i.d. and we will await the rest of the studies. He may need another medication such as nortriptyline, but he is on Remeron at this time. I dictated a phone consult yesterday on 11/10/2019 and the results are not on the chart. PLAN: 1. Continue Depakote 500 mg p.o. b.i.d. 2. Obtain results of the studies. 3. Ophthalmology consult. Matias Falk MD DR: MELISSA JOB#: [id number] CC:
[2019-11-11 16:00] VITALS: BP 136/71
--- NOTE | 2019-11-11 16:48 | NUR ---
HAND-OFF: Report given to JOHN PAUL Bellamy RN.
--- NOTE | 2019-11-11 16:52 | Internal Med Progress Note ---
Subjective Date of Service: Nov 11, 2019 Physician Name Leonardo Palencia Attending Physician Jaylen Lara MD Current Medications Medications (Trade) Dose Ordered Sig/Felipe Route PRN Reason Start Time Stop Time Status Last Admin Dose Admin Acetaminophen (Tylenol) 650 mg Q4H PRN ORAL fever 11/08/19 11:45 12/06/19 11:44 Amlodipine Besylate (Norvasc) 5 mg DAILY ORAL 11/09/19 09:00 12/07/19 08:59 11/11/19 08:24 Colchicine (Colchicine) 0.6 mg DAILY ORAL 11/09/19 09:00 12/07/19 08:59 11/11/19 08:24 Dextrose (Dextrose 50%) 25 ml Q30M PRN IV Hypoglycemia 11/08/19 12:00 12/06/19 16:59 Dextrose (Dextrose 50%) 50 ml Q30M PRN IV Hypoglycemia 11/08/19 12:00 12/06/19 16:59 Divalproex Sodium (Depakote) 500 mg EVERY 12 HOURS ORAL 11/11/19 21:00 12/11/19 20:59 Docusate Sodium (Colace) 100 mg TWICE A DAY ORAL 11/08/19 18:00 12/08/19 17:59 11/11/19 08:24 Escitalopram Oxalate (Lexapro) 10 mg DAILY ORAL 11/09/19 09:00 12/07/19 08:59 11/11/19 08:24 Finasteride (Proscar) 5 mg DAILY ORAL 11/09/19 09:00 12/07/19 08:59 11/11/19 08:24 Gadobutrol (Gadavist) 7.5 mmol NOW PRN IV Radiology Procedure 11/10/19 09:30 11/13/19 09:21 Gadobutrol (Gadavist) 7.5 mmol NOW PRN IV Radiology Procedure 11/10/19 09:30 11/14/19 09:17 Levofloxacin (Levaquin) 500 mg DAILY@1800 ORAL 11/09/19 18:00 11/14/19 23:59 11/10/19 17:03 Mirtazapine (Remeron) 7.5 mg BEDTIME ORAL 11/08/19 21:00 12/06/19 20:59 11/10/19 21:04 Oxycodone HCl (Roxicodone) 30 mg Q6H PRN ORAL For Pain 11/08/19 11:45 11/13/19 11:44 11/10/19 21:05 Polyethylene Glycol (Miralax) 17 gm HSPRN PRN ORAL Constipation 11/08/19 11:45 12/06/19 11:44 11/08/19 17:24 Rivaroxaban (Xarelto) 10 mg DAILY ORAL 11/09/19 09:00 12/07/19 08:59 11/11/19 08:24 Tamsulosin HCl (Flomax) 0.4 mg QHS ORAL 11/08/19 21:00 12/06/19 20:59 11/10/19 21:04 Zolpidem Tartrate (Ambien) 5 mg HSPRN PRN ORAL Insomnia 11/08/19 17:00 11/13/19 16:59 11/09/19 21:21 Allergies: Coded Allergies: No Known Allergies (Unverified , 10/27/12) ROS Limited/Unobtainable: No Constitutional: Reports: no symptoms HEENT: Reports: no symptoms Cardiovascular: Reports: no symptoms Respiratory: Reports: no symptoms Gastrointestinal/Abdominal: Reports: no symptoms Genitourinary: Reports: no symptoms Neurologic/Psychiatric: Reports: no symptoms Subjective 74 YO M admitted with headache. Now sinusitis. Cover for Int Med-DR Lara. Await ophthalmology consult Objective Last Vital Signs Date Time Temp Pulse Resp B/P (MAP) Pulse Ox O2 Delivery O2 Flow Rate FiO2 11/11/19 16:00 98.0 74 18 136/71 (92) 100 11/11/19 12:30 Room Air Laboratory Tests Test 11/11/19 08:20 White Blood Count 8.6 K/UL (4.8-10.8) Red Blood Count 4.71 M/UL (4.70-6.10) Hemoglobin 15.3 G/DL (14.2-18.0) Hematocrit 44.1 % (42.0-52.0) Mean Corpuscular Volume 94 FL (80-99) Mean Corpuscular Hemoglobin 32.5 PG (27.0-31.0) H Mean Corpuscular Hemoglobin Concent 34.7 G/DL (32.0-36.0) Red Cell Distribution Width 11.7 % (11.6-14.8) Platelet Count 196 K/UL (150-450) Mean Platelet Volume 7.9 FL (6.5-10.1) Neutrophils (%) (Auto) 59.9 % (45.0-75.0) Lymphocytes (%) (Auto) 32.1 % (20.0-45.0) Monocytes (%) (Auto) 5.4 % (1.0-10.0) Eosinophils (%) (Auto) 1.3 % (0.0-3.0) Basophils (%) (Auto) 1.3 % (0.0-2.0) Sodium Level 141 MMOL/L (136-145) Potassium Level 4.4 MMOL/L (3.5-5.1) Chloride Level 103 MMOL/L (98-107) Carbon Dioxide Level 35 MMOL/L (21-32) H Anion Gap 3 mmol/L (5-15) L Blood Urea Nitrogen 19 mg/dL (7-18) H Creatinine 1.4 MG/DL (0.55-1.30) H Estimat Glomerular Filtration Rate mL/min (>60) Glucose Level 158 MG/DL (74-106) H Hemoglobin A1c 6.8 % (4.3-6.0) H Calcium Level 9.0 MG/DL (8.5-10.1) Free Thyroxine 0.83 NG/DL (0.76-1.46) Free Triiodothyronine 2.6 pg/mL (2.3-4.2) Intake and Output 11/10/19 11/11/19 19:00 07:00 Intake Total 1065.0 ml 1035 ml Balance 1065.0 ml 1035 ml Intake Oral 1000 ml 360 ml IV Total 65.0 ml 675 ml # Voids 4 2 Objective PHYSICAL EXAMINATION: GENERAL: The patient is a well-nourished and well-nourished male, in no apparent distress. HEENT: Eyes, pupils are equal and responsive to light and accommodation. Extraocular movements are intact. NECK: Supple without lymphadenopathy. CHEST: Lungs are clear to auscultation bilaterally without wheezes or rales. CARDIOVASCULAR: Regular rhythm and rate. S1 and S2 are normal without murmurs, rubs, or gallops. ABDOMEN: Soft, nontender, and nondistended. Positive bowel sounds. No evidence of hepatosplenomegaly. Currently, no rebound or guarding noted. EXTREMITIES: Negative for clubbing, cyanosis, or edema. RECTAL/GENITAL: Not performed. NEUROLOGIC: Cranial nerves II through XII are grossly intact without focal deficits. Motor strength is 5/5 bilaterally. Deep tendon reflexes are 2+ plantar. Assessment/Plan Assessment/Plan ASSESSMENT: This is a 74-year-old male. 1. Headache. 2. Ataxia. 3. Hypertension. 4. Hypertensive heart disease. 5. History of renal cell tumor, benign. 6. Chronic obstructive pulmonary disease. 7. Hypercholesterolemia. 8. Benign prostatic hypertrophy. 9. Hepatitis C, status post treatment in 2009. 10. Anxiety disorder. 11. Depression. 12. Sinusitis TREATMENT: 1. Right-sided headache/ataxia. An MRI of the brain=normal. A CT scan showed ethmoid sinus mucosal thickening. The patient has been started empirically on antibiotics for probable sinusitis. Depakote started per neurology. Await ophthalmology consult. 2. Hypertensive heart disease. 3. Hypertension. Continue amlodipine as above. 4. Chronic obstructive pulmonary disease. Continue albuterol metered-dose inhaler as above. 5. Hypercholesterolemia. Continue atorvastatin as above. 6. Benign prostatic hypertrophy. Continue Flomax and finasteride as above. 7. Hepatitis C, status post treatment in 2009. 8. Anxiety/depression. Continue Lexapro as above. 9. ABX=Leonardo Juan MD Nov 11, 2019 16:52
[2019-11-11] MEDS: Levofloxacin 500mg tab ORAL SCH (17:20)
--- NOTE | 2019-11-11 19:31 | NUR ---
HAND-OFF: Report given to JOHN PAUL Cannon.
[2019-11-11 20:00] VITALS: BP 129/70
--- NOTE | 2019-11-11 20:02 | NUR ---
NURSE NOTES: Received patient in bed, awake, alert, oriented x4, ambulates with steady gate. IV site is clean dry and intact, no acute distress noted. Call light is within reach, bed is lowered, locked and alarm is on. Will continue to monitor for comfort and safety.
[2019-11-11] MEDS: Tamsulosin 0.4mg cap ORAL SCH (20:55)
[2019-11-11] MEDS: Depakote 500mg tab ORAL SCH (20:55)
[2019-11-12] VITALS: BP 129/79
[2019-11-12 04:00] VITALS: BP 123/70
[2019-11-12 06:47] LABS: BASOPHILS % (AUTO) 0.5 % (0.0-2.0); EOSINOPHILS % (AUTO) 1.5 % (0.0-3.0); HEMATOCRIT 41.6 % (42.0-52.0); HEMOGLOBIN 14.5 G/DL (14.2-18.0); MEAN CORPUSCULAR VOLUME 93 FL (80-99); MONOCYTES % (AUTO) 8.9 % (1.0-10.0); NEUTROPHILS % (AUTO) 61.1 % (45.0-75.0); PLATELET COUNT 196 K/UL (150-450); RED BLOOD COUNT 4.49 M/UL (4.70-6.10); RED CELL DISTRIBUTION WIDTH 11.7 % (11.6-14.8); WHITE BLOOD COUNT 7.1 K/UL (4.8-10.8)
--- NOTE | 2019-11-12 06:53 | NUR ---
HAND-OFF: Report given to Curt COKER.
--- NOTE | 2019-11-12 07:10 | NUR ---
NURSE NOTES:Handoff received from JOHN PAUL Cannon. Patient received awake and alert and resting in bed, no acute signs of distress noted. Patient is able to make needs known. IV site is clean dry and intact, saline locked, bed in the low and locked position with call light within reach, will continue to monitor patient. No pain noted at this time.
[2019-11-12 07:24] LABS: ANION GAP 8 mmol/L (5-15); BLOOD UREA NITROGEN 17 mg/dL (7-18); CALCIUM 9.2 MG/DL (8.5-10.1); CARBON DIOXIDE 29 MMOL/L (21-32); CHLORIDE 105 MMOL/L (98-107); CREATININE 1.2 MG/DL (0.55-1.30); POTASSIUM 4.6 MMOL/L (3.5-5.1); SODIUM 141 MMOL/L (136-145)
--- NOTE | 2019-11-12 07:30 | Consultation ---
DATE OF CONSULTATION: 11/10/2019 CONSULTING PHYSICIAN: Matias Falk M.D. CHIEF COMPLAINT: This 74-year-old right-handed male with hypertension for 10 years, gout for 10 years, depression for 20 years on Lexapro, hyperlipidemia for several years, BPH with possible prostate cancer. He is admitted with a chief complaint of right-sided headache. Apparently, denies any similar headaches in the past; although, in 2007, he was seen in the emergency room for right facial pain 03:07. His headache was sudden onset in the sabianism area involving the eyes radiating down the right side of the neck and down to his legs and right chest area. The pain is a sharp pain as well as throbbing, aggravated by standing up, light. The pain is up to 10/10 in severity. It lasts anywhere from 30 minutes to an hour and is episodic, but it is daily. There is no nausea or vomiting. There is questionable visual blurring in the right eye. No diplopia. He denies any jaw claudication. If he rubs in the right sabianism area that increases the pain. He denies any drinking. He used to smoke. The patient has a 17 -pack-year history of tobacco abuse. The patient has thrombophlebitis, on Xarelto 10 mg daily. There is no history of pulmonary embolism. He was knocked out in 2011 when he fell off a roof hitting his head. He was hospitalized somewhere in the [place], probably [facility]. He had bad headaches at that time. There is no history of stroke, seizures. Had 1 blackout spell 2 years ago where he passed out. He denies any hearing loss or tinnitus. He had some dizzy spells e stands up too quickly. He used to get car sick when he was younger. The patient denies any illegal drug use Mother and father both had dementia. Uncle had cva PAST MEDICAL HISTORY/PAST MEDICAL ILLNESSES: 1. Appendicitis with appendectomy in 1999. 2. Thrombophlebitis of legs, on Xarelto 10 mg. 3. History of gout. 4. History of hypertension with elevated blood pressure on admission. 5. BPH with possible prostate cancer on Flomax 0.4 mg a day. 6. Benign kidney tumor with heminephrectomy. 8. Hepatitis C for the last 50 years. ALLERGIES: He is allergic to . MEDICATIONS: 1. He is on albuterol 2 puffs 4 times a day. 2. Amlodipine 5 mg a day. 3. Vitamin D 2000 units a day. 4. Colchicine 0.6 mg daily. 5. Lexapro 10 mg a day. 6. Finasteride 5 mg a day. 7. Lorazepam 1 mg a day. 8. Mirtazapine 15 mg at bedtime. 9. Oxycodone 30 mg q.6 hours. 10. Protonix 40 mg. 11. Simvastatin 40 mg p.o. at bedtime. 12. Flomax. See above. 13. Zanaflex 4 mg t.i.d. SOCIAL HISTORY: The patient is . Has 4 children in good health. 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 SURGERIES: See above. FAMILY HISTORY: His father of old age. His mother of cancer, type unknown. Siblings in good health. REVIEW OF SYSTEMS: His appetite is good. His weight is stable. He eating in the hospital. He is 190 pounds, i PHYSICAL EXAMINATION: VITAL SIGNS: His blood pressure is 133/77, pulse is 83 regular, respirations 19. HEENT: Examination of his head reveals tenderness over the right eye and tenderness to the right TMJ, right sabianism area. He has poor dentition. NECK: Supple. No tenderness. Carotids are +2. No bruits. LUNGS: Clear to auscultation. CARDIOVASCULAR: PMI was not felt straight. JVP was normal. The patient had a normal S1. S2 is physiologically split. There is probably an S4 at the apex. No murmurs or rubs. ABDOMEN: The abdomen is obese. Bowel sounds intact. No tenderness, masses, or organomegaly appreciated. BACK: The back is nontender. There is no muscle spasm. EXTREMITIES: Extremities are basically intact. NEUROLOGIC EXAMINATION: MENTAL STATUS: He is alert and awake. His mental status is basically normal. He is in moderate distress. CRANIAL NERVE EXAMINATION: Cranial Nerves II through XII within normal limits. Fundi not visualized. Pupils 4 mm, round, light reactive. MUSCLE EXAMINATION: Muscle bulk and tone are normal. Strength 5/5 proximally and distally without pronator drift. REFLEXES: +2 in the upper extremities, +1 at the knees and ankles with downgoing toes and testing for Babinski response. COORDINATION: [id number], [id number] testing, rapid alternating movements are normal. GAIT AND STATION: He had a lot of discomfort sitting up with a lot of right-sided head pain. His Romberg was probably negative. He really could not walk because of discomfort and had to sit down. SENSORY EXAMINATION: Proprioception, fine touch, pinprick were intact. IMPRESSION: The differential diagnosis for the patient's headaches are. 1. Status migrainosus. 2. Temporal arteritis not likely. 3. Paroxysmal hemicrania. 4. Possible glaucoma. 5. Cerebrovascular disease. MRA will be obtained. I saw the patient's CT scan of the brain. It was essentially negative. . The MRI scan done without contrast revealed no acute intracranial findings. There is some atrophy and right small vessel disease . Laboratory studies reveal an elevated white blood cell count normal platelets were normal. Chemistries reveal an elevated sugar of 246. TSH is low at 0.181. Creatinine was 1.4 today, but BUN is normal. As far as his workup is concerned, I am going to get an MRI with contrast I also want to get an MRA of the brain. C-reactive protein should be obtained. No lumbar puncture at this time. I want to get an Ophthalmology consult. PLAN: 1. Ophthalmology consult. 2. MRI scan was order with oral contrast. 3. MRA of the brain. 4. C-reactive protein. 5. Depakote 500 mg b.i.d. Thank you for this case. Matias Falk MD DR: MELISSA JOB#: [id number] CC: KURT
[2019-11-12 08:00] VITALS: BP 113/66
[2019-11-12] MEDS: Docusate 100mg cap ORAL SCH (09:10)
[2019-11-12] MEDS: Depakote 500mg tab ORAL SCH (09:11)
[2019-11-12] MEDS: Xarelto 10mg tab ORAL SCH (09:12)
--- NOTE | 2019-11-12 09:20 | NUR ---
NURSE NOTES: Assisted patient to bathroom, patient stated he feels dizzy.
[2019-11-12 12:00] VITALS: BP 117/70
--- NOTE | 2019-11-12 12:36 | Pulmonology Progress Note ---
Assessment/Plan Problems: (1) Intractable headache (2) Anxiety disorder (3) Hepatitis C (4) COPD (chronic obstructive pulmonary disease) (5) Hypertensive hypertrophic cardiomyopathy, without heart failure (6) HTN (hypertension) Assessment/Plan neuro evaluation appreciated seen by pain management ESR is normal symptomatic treatment respiratory treatment monitor BP will need ophthalmology as outpatient Subjective ROS Limited/Unobtainable: No Constitutional: Reports: no symptoms HEENT: Repors: no symptoms Allergies: Coded Allergies: No Known Allergies (Unverified , 10/27/12) Objective Last 24 Hour Vital Signs Date Time Temp Pulse Resp B/P (MAP) Pulse Ox O2 Delivery O2 Flow Rate FiO2 11/12/19 12:00 97.5 67 16 117/70 (86) 94 11/12/19 09:12 70 113/66 11/12/19 09:00 Room Air 11/12/19 08:00 96.6 70 16 113/66 (82) 96 11/12/19 04:00 98.3 64 16 123/70 (87) 97 11/12/19 00:00 97.3 68 18 129/79 (96) 98 11/11/19 21:21 Room Air 11/11/19 20:00 98.5 72 16 129/70 (89) 97 72 11/11/19 16:00 98.0 74 18 136/71 (92) 100 Intake and Output 11/11/19 11/12/19 19:00 07:00 # Voids 4 # Bowel Movements 1 General Appearance: WD/WN HEENT: normocephalic, anicteric Respiratory/Chest: chest wall non-tender, lungs clear, normal breath sounds Abdomen: normal bowel sounds, soft, non tender Genitourinary: normal external genitalia Extremities: no cyanosis Skin: no rash, no lesions Laboratory Tests 11/12/19 05:56: White Blood Count 7.1, Red Blood Count 4.49L, Hemoglobin 14.5, Hematocrit 41.6L , Mean Corpuscular Volume 93, Mean Corpuscular Hemoglobin 32.3H, Mean Corpuscular Hemoglobin Concent 34.9, Red Cell Distribution Width 11.7, Platelet Count 196, Mean Platelet Volume 7.9, Neutrophils (%) (Auto) 61.1, Lymphocytes (% ) (Auto) 28.0, Monocytes (%) (Auto) 8.9, Eosinophils (%) (Auto) 1.5, Basophils ( %) (Auto) 0.5, Sodium Level 141, Potassium Level 4.6, Chloride Level 105, Carbon Dioxide Level 29, Anion Gap 8, Blood Urea Nitrogen 17, Creatinine 1.2, Estimat Glomerular Filtration Rate , Glucose Level 122H, Calcium Level 9.2 Current Medications Medications (Trade) Dose Ordered Sig/Felipe Route PRN Reason Start Time Stop Time Status Last Admin Dose Admin Acetaminophen (Tylenol) 650 mg Q4H PRN ORAL fever 11/08/19 11:45 12/06/19 11:44 Amlodipine Besylate (Norvasc) 5 mg DAILY ORAL 11/09/19 09:00 12/07/19 08:59 11/12/19 09:12 Colchicine (Colchicine) 0.6 mg DAILY ORAL 11/09/19 09:00 12/07/19 08:59 11/12/19 09:13 Dextrose (Dextrose 50%) 25 ml Q30M PRN IV Hypoglycemia 11/08/19 12:00 12/06/19 16:59 Dextrose (Dextrose 50%) 50 ml Q30M PRN IV Hypoglycemia 11/08/19 12:00 12/06/19 16:59 Divalproex Sodium (Depakote) 500 mg EVERY 12 HOURS ORAL 11/11/19 21:00 12/11/19 20:59 11/12/19 09:11 Docusate Sodium (Colace) 100 mg TWICE A DAY ORAL 11/08/19 18:00 12/08/19 17:59 11/12/19 09:10 Escitalopram Oxalate (Lexapro) 10 mg DAILY ORAL 11/09/19 09:00 12/07/19 08:59 11/12/19 09:11 Finasteride (Proscar) 5 mg DAILY ORAL 11/09/19 09:00 12/07/19 08:59 11/12/19 09:11 Gadobutrol (Gadavist) 7.5 mmol NOW PRN IV Radiology Procedure 11/10/19 09:30 11/13/19 09:21 Gadobutrol (Gadavist) 7.5 mmol NOW PRN IV Radiology Procedure 11/10/19 09:30 11/14/19 09:17 Levofloxacin (Levaquin) 500 mg DAILY@1800 ORAL 11/09/19 18:00 11/14/19 23:59 2/6/20 17:20 Mirtazapine (Remeron) 7.5 mg BEDTIME ORAL 11/08/19 21:00 12/06/19 20:59 11/11/19 20:55 Oxycodone HCl (Roxicodone) 30 mg Q6H PRN ORAL For Pain 11/08/19 11:45 11/13/19 11:44 11/10/19 21:05 Polyethylene Glycol (Miralax) 17 gm HSPRN PRN ORAL Constipation 11/08/19 11:45 12/06/19 11:44 11/08/19 17:24 Rivaroxaban (Xarelto) 10 mg DAILY ORAL 11/09/19 09:00 12/07/19 08:59 11/12/19 09:12 Tamsulosin HCl (Flomax) 0.4 mg QHS ORAL 11/08/19 21:00 12/06/19 20:59 11/11/19 20:55 Zolpidem Tartrate (Ambien) 5 mg HSPRN PRN ORAL Insomnia 11/08/19 17:00 11/13/19 16:59 11/09/19 21:21 Susy Morse MD Nov 12, 2019 12:36
--- NOTE | 2019-11-12 13:29 | NUR ---
RD ASSESSMENT & RECOMMENDATIONS SEE CARE ACTIVITY FOR COMPLETE ASSESSMENT DAILY ESTIMATED NEEDS: Needs based on Cardiac, renal 77.3kg adj 25-30 kcals/kg 8561-8878 total kcals 1-1.2 g protein/kg 77-93 g total protein 25-30 mL/kg 8224-5567 total fluid mLs NUTRITION DIAGNOSIS: Altered nutrition related lab values r/t hyperglycemia as evidenced by BG of 122-158, A1C 6.8. CURRENT DIET:Cardiac PO DIET RECOMMENDATIONS: Rec CCHO MED + LOW NA DIET ADDITIONAL RECOMMENDATIONS: 1) Obtain standing wt as able 2) Morning Glu mildly elev (122-158); niss prn + accu checks .
--- NOTE | 2019-11-12 14:45 | Progress Note ---
DATE: 11/12/2019 SUBJECTIVE: The patient is doing quite well. Headaches have basically gone. He is eating. His studies so far are negative, except for some ethmoid sinus thickening noted on the MRI. The orbits are basically normal. PHYSICAL EXAMINATION: VITAL SIGNS: The temperature is 98.3 degrees, pulse is 64, respiration rate is 16, blood pressure is 123/70. IMPRESSION: The patient's headaches have resolved. He can basically go home on Depakote 500 mg p.o. twice a day. He can be seen by myself at my office in [address] Lara. He probably should still get the Ophthalmology consult although I do not think we are going to find much. PLAN: 1. Ophthalmology consult. 2. When we discharge him, discharge him on Depakote 500 mg b.i.d. 3. Outpatient evaluation in 2 or more weeks. Matias Falk MD DR: MELISSA JOB#: [id number] CC:
[2019-11-12] MEDS ORDERED: DEPAKOTE250 MG PO (15:48)
[2019-11-12 16:00] VITALS: BP 120/69
--- NOTE | 2019-11-12 17:20 | NUR ---
NURSE NOTES: Patient discharged and left alert and oriented and ambulatory. patient parked in the carpark, left in his own vehicle. Belongings given to patient. Informed patient to follow up with his primary care physician. Patient left with a faxed copy of a prescription from DR Falk for depakote, explained possible side effects and those which require immediate intervention such as jaundice or dark tea colored urine. provided discharge instructions on headache and sinusitis Patient signed the belongings list and discharge paperwork.
--- NOTE | 2019-11-12 18:33 | Internal Med Progress Note ---
Subjective Physician Name Jaylen Lara Attending Physician Jaylen Lara MD Allergies: Coded Allergies: No Known Allergies (Unverified , 10/27/12) Subjective Awake, alert, responsive, complain lesser headache. Objective Last Vital Signs Date Time Temp Pulse Resp B/P (MAP) Pulse Ox O2 Delivery O2 Flow Rate FiO2 11/12/19 16:00 97.7 67 16 120/69 (86) 97 11/12/19 09:00 Room Air Laboratory Tests Test 11/12/19 05:56 White Blood Count 7.1 K/UL (4.8-10.8) Red Blood Count 4.49 M/UL (4.70-6.10) L Hemoglobin 14.5 G/DL (14.2-18.0) Hematocrit 41.6 % (42.0-52.0) L Mean Corpuscular Volume 93 FL (80-99) Mean Corpuscular Hemoglobin 32.3 PG (27.0-31.0) H Mean Corpuscular Hemoglobin Concent 34.9 G/DL (32.0-36.0) Red Cell Distribution Width 11.7 % (11.6-14.8) Platelet Count 196 K/UL (150-450) Mean Platelet Volume 7.9 FL (6.5-10.1) Neutrophils (%) (Auto) 61.1 % (45.0-75.0) Lymphocytes (%) (Auto) 28.0 % (20.0-45.0) Monocytes (%) (Auto) 8.9 % (1.0-10.0) Eosinophils (%) (Auto) 1.5 % (0.0-3.0) Basophils (%) (Auto) 0.5 % (0.0-2.0) Sodium Level 141 MMOL/L (136-145) Potassium Level 4.6 MMOL/L (3.5-5.1) Chloride Level 105 MMOL/L (98-107) Carbon Dioxide Level 29 MMOL/L (21-32) Anion Gap 8 mmol/L (5-15) Blood Urea Nitrogen 17 mg/dL (7-18) Creatinine 1.2 MG/DL (0.55-1.30) Estimat Glomerular Filtration Rate mL/min (>60) Glucose Level 122 MG/DL (74-106) H Calcium Level 9.2 MG/DL (8.5-10.1) Intake and Output 11/11/19 11/12/19 19:00 07:00 # Voids 4 # Bowel Movements 1 Objective General: No acute distress, awake and alert HEENT: NCAT, sclera anicteric, PERRL, EOMI. Neck: Supple, no significant jugular venous distention, Lungs: Good inspiratory effort, clear to auscultation bilaterally, no Wheeze or Rales. Heart: Regular rate and rhythm, normal S1/S2, no murmurs/gallops Abdomen: soft, nontender, nondistended. Normoactive bowel sounds. / Rectal: Refused and deferred. Extremities: No Cyanosis , clubbing or edema. Neuro: A&O x 3, Able to move all extremities Skin: warm, no rashes or lesions Psych: Normal mood and affect Assessment/Plan Assessment/Plan ASSESSMENT: This is a 74-year-old male. 1. Headache. 2. Ataxia. 3. Hypertension. 4. Hypertensive heart disease. 5. History of renal cell tumor, benign. 6. Chronic obstructive pulmonary disease. 7. Hypercholesterolemia. 8. Benign prostatic hypertrophy. 9. Hepatitis C, status post treatment in 2009. 10. Anxiety disorder. 11. Depression. 12. Sinusitis TREATMENT: 1. Right-sided headache/ataxia. An MRI of the brain=normal. A CT scan showed ethmoid sinus mucosal thickening. The patient has been started empirically on antibiotics for probable sinusitis. Depakote started per neurology. Await ophthalmology consult. 2. Hypertensive heart disease. 3. Hypertension. Continue amlodipine as above. 4. Chronic obstructive pulmonary disease. Continue albuterol metered-dose inhaler as above. 5. Hypercholesterolemia. Continue atorvastatin as above. 6. Benign prostatic hypertrophy. Continue Flomax and finasteride as above. 7. Hepatitis C, status post treatment in 2009. 8. Anxiety/depression. Continue Lexapro as above. 9. ABX=levaquin 10. DC home today follow-up in my office within 1 week. Jaylen Lara MD Nov 12, 2019 18:33
--- NOTE | 2019-11-14 18:14 | Discharge Summary ---
Discharge Summary Discharge Summary _ DATE OF ADMISSION: 11/06/2019 DATE OF DISCHARGE: 11/12/2019 DISCHARGED BY: Dr. Jaylen Lara CONSULTANTS: Dr. Matias Joseph BRIEF HOSPITAL COURSE: The patient is a 74-year-old -[place] gentleman with chief complaint of right-sided headache. Symptoms started on November 01, 2019. The patient started to have right-sided headache. Patient was evaluated by his primary care physician. It was thought the patient had an right ear infection. Patient stated headache has gotten worse. He stated there is a prominent vein on the right side of the head. He has medical history significant for hypertension, hypertensive heart disease, history of renal cell tumor in 2011, COPD, hypercholesterolemia, BPH, hepatitis C, anxiety disorder and depression. Upon evaluation at ED, vital signs were stable, blood work did not show any leukocytosis. Hemoglobin and hematocrit were stable. Troponin was negative. EKG was in sinus rhythm. Head CT did not show any acute intracranial process. Patient had right-sided proptosis. There was no retrobulbar mass. There was presence of ethmoid sinus mucosal thickening. He was then admitted for evaluation of right-sided headache. Inflammatory marker CRP not elevated. Temporal arteritis was ruled out. He was treated empirically with Levaquin for probable sinusitis. He was continued on amlodipine for blood pressure support. He has a history of COPD and was given albuterol he was given Flomax and finasteride for BPH. Continued on Lexapro for anxiety and depression. He was given oxycodone for pain. Brain MRI with no acute intracranial findings. Neurologist was consulted. He was given Depakote. Head and neck MRI/MRA was negative. MRI of the orbits negative except for sinusitis. Headaches resolved. He was cleared for discharge. To continue Depakote twice daily. FINAL DIAGNOSES: Headache secondary to acute sinusitis Hypertension Hypertensive heart disease History of renal cell tumor, benign COPD Hypercholesterolemia BPH Hepatitis C status post treatment Anxiety disorder Depression Lumbar degenerative disc disease Acute kidney injury Low TSH DISPOSITION: Patient was discharged home. DISCHARGE MEDICATIONS: Refer to Discharge Medication List. DISCHARGE INSTRUCTIONS: Follow-up in a week. I have been assigned to complete a discharge summary on this account, I was not involved with the patient's management.--J. Licauco, Adali Calderon NP Nov 14, 2019 18:14
== END 2019-11-12 17:09 | disposition home or self-care (01) | DRG 153 ==
LOC: EMR 14:40 → 2E 15:43 → EDBEDREQ 19:12 → 2E 23:36 → 4E 11-08 11:35
DX: J01.20 Acute ethmoidal sinusitis, unspecified (principal); F11.20 Opioid dependence, uncomplicated; N17.9 Acute kidney failure, unspecified; F33.1 Major depressive disorder, recurrent, moderate; I42.2 Other hypertrophic cardiomyopathy; N40.0 Benign prostatic hyperplasia without lower urinary tract symptoms; J44.9 Chronic obstructive pulmonary disease, unspecified; I11.9 Hypertensive heart disease without heart failure; R27.0 Ataxia, unspecified; B19.20 Unspecified viral hepatitis C without hepatic coma; I10 Essential (primary) hypertension; Z79.01 Long term (current) use of anticoagulants; F17.200 Nicotine dependence, unspecified, uncomplicated; Z86.19 Personal history of other infectious and parasitic diseases; F41.9 Anxiety disorder, unspecified; E78.00 Pure hypercholesterolemia, unspecified; M51.16 Intervertebral disc disorders with radiculopathy, lumbar region; M47.896 Other spondylosis, lumbar region; Z86.718 Personal history of other venous thrombosis and embolism; M10.9 Gout, unspecified; I80.3 Phlebitis and thrombophlebitis of lower extremities, unspecified; R94.6 Abnormal results of thyroid function studies
CPT/HCPCS: 36415; 70450; 70543; 70544; 70548; 70553; 71045; 80048; 80053; 82550; 83036; 83690; 83880; 84439; 84443; 84481; 84484; 85007; 85025; 85651; 86140; 93005; 93880; 96374; 96375; 99285; A9585; J2405